=== PATIENT | male | born 1950 | race African-American/Black ===

== ENCOUNTER → 2016-06-29 | Outpatient (CLI) | payer MEDICARE, OTHER ==
--- NOTE | 2016-06-29 12:43 | CT ---
EXAMINATION TYPE: CT chest wo con DATE OF EXAM: 06/29/2016 12:33 PM COMPARISON: NONE HISTORY: Patient complains of difficulty breathing. CT DLP: 919.8 mGycm. Automated Exposure Control for Dose Reduction was Utilized. TECHNIQUE: CT scan of the thorax is performed without IV contrast. High-resolution protocol with 10 mm sequences obtained in supine and prone technique. FINDINGS: LUNGS: There are tiny bilateral pleural effusions. No suspicious groundglass opacity or consolidation is seen. Some mild edema with atelectatic change in both lung bases is felt present. Evaluation for subcentimeter nodules is suboptimal due to technique. There is suspected 9 x 7 mm nodule in the right lung base near diaphragm on axial image 21 series 8. No bronchiectasis is seen. No pneumothorax is n oted bilaterally. MEDIASTINUM: Lack of IV contrast is noted to limit evaluation for mediastinal and especially hilar ad enopathy. There are no definitive greater than 1 cm hilar or mediastinal lymph nodes. There is cardio megaly with dual lead pacemaker/AICD. Coronary artery calcification is seen which is noted marker for coronary artery disease. OTHER: Cholecystectomy clips are noted. IMPRESSION: 1. Consider CHF exacerbation or chronic CHF as there is cardiomegaly with tiny bilateral pleural effu sions and mild edema inferiorly in both lungs. 2. There is some mild scarring and/or atelectatic change in both lung bases. Otherwise there is no si gnificant acute or chronic pulmonary process identified.
== END | disposition home or self-care (01) ==
LOC: RADCTMAIN 12:10
PROVIDERS: ATTEND Internal Medicine
DX: J90 Pleural effusion, not elsewhere classified (principal); I51.7 Cardiomegaly; J81.1 Chronic pulmonary edema
CPT/HCPCS: 71250

== ENCOUNTER → 2017-03-20 | Outpatient (CLI) | payer MEDICARE, OTHER ==
--- NOTE | 2017-03-20 14:44 | US ---
EXAMINATION TYPE: US duplex aorta DATE OF EXAM: 03/20/2017 COMPARISON: NONE CLINICAL HISTORY: Z13.9 ENCOUNTER FOR SCREENING. EXAM MEASUREMENTS: Abdominal Aorta: Proximal: 2.6 x 2.1 cm Mid: 2.2 x 2.1 cm Distal: 1.9 x 2.3 cm Bifurcation: right 1.4 x 1.0 cm left 1.3 x 1.2 cm IMPRESSION: No sonographic evidence of abdominal aortic aneurysm.
== END | disposition home or self-care (01) ==
LOC: RADUSWWP 14:12
PROVIDERS: ATTEND Family Medicine
DX: Z13.9 Encounter for screening, unspecified (principal)
CPT/HCPCS: 93979

== ENCOUNTER → 2017-07-03 | Outpatient (CLI) | payer MEDICARE, OTHER ==
[2017-07-03 12:42] LABS: HCT 46.7 % (39.0-53.0); HGB 14.7 gm/dL (13.0-17.5); MCH 26.1 pg (25.0-35.0); MCHC 31.6 g/dL (31.0-37.0); MCV 82.6 fL (80.0-100.0); Platelet Count 355 k/uL (150-450); RBC 5.65 m/uL (4.30-5.90); RDW 14.6 % (11.5-15.5)
[2017-07-03 12:59] LABS: Potassium 4.7 mmol/L (3.5-5.1)
== END | disposition home or self-care (01) ==
LOC: LABPAT 11:54
PROVIDERS: ATTEND Internal Medicine Interventional Cardiology
DX: Z01.812 Encounter for preprocedural laboratory examination (principal); I25.10 Atherosclerotic heart disease of native coronary artery without angina pectoris
CPT/HCPCS: 36415; 80051; 82565; 84520; 85027

== ENCOUNTER → 2017-10-22 | Outpatient (CLI) | payer MEDICARE, OTHER ==
--- NOTE | 2017-10-22 22:13 | CT ---
EXAMINATION TYPE: CT chest w con DATE OF EXAM: 10/22/2017 COMPARISON: CT chest June 29, 2016. Two-view chest x-ray June 12, 2017. HISTORY: Solitary pulmonary nodule. CT DLP: 547 mGycm. Automated Exposure Control for Dose Reduction was Utilized. TECHNIQUE: CT scan of the thorax is performed following with IV Contrast, patient injected with 100m l mL of Isovue 300. FINDINGS: LUNGS: There is moderate bibasilar linear scarring and/or atelectasis. There is trace bilateral pleur al effusions. No suspicious greater than 5 mm parenchymal nodule or mass is identified bilaterally. T racheobronchial tree is patent. No pneumothorax is evident bilaterally. MEDIASTINUM: There are no greater than 1 cm hilar or mediastinal lymph nodes. No pericardial effusi on is seen. Cardiomegaly with dual lead pacemaker/AICD is redemonstrated. Main pulmonary artery is d ilated at bifurcation measuring 3.4 cm axial image 23, CT finding consistent with underlying pulmonar y artery hypertension. OTHER: Left greater than right bilateral gynecomastia is redemonstrated. Cholecystectomy clips are re demonstrated. Small splenule splenic hilum axial image 49 is noted. 1 cm simple appearing exophytic c yst medially right kidney axial image 55 is present. IMPRESSION: No suspicious pulmonary nodule or masses.
== END | disposition home or self-care (01) ==
LOC: RADCTMAIN 17:35
PROVIDERS: ATTEND Internal Medicine
DX: R91.1 Solitary pulmonary nodule (principal); Z88.8 Allergy status to other drugs, medicaments and biological substances
CPT/HCPCS: 82565; 84520; 71260; 36415; Q9967

== ENCOUNTER → 2018-01-16 | Outpatient (CLI) | payer MEDICARE, OTHER ==
--- NOTE | 2018-01-16 12:03 | XR ---
EXAMINATION TYPE: XR chest 2V DATE OF EXAM: 01/16/2018 COMPARISON: 07/20/2014 HISTORY: Shortness of breath TECHNIQUE: Frontal and lateral views of the chest are obtained. FINDINGS: Scattered senescent parenchymal changes noted. Hyperinflation compatible with COPD. No evidence for infiltrate. No evidence for atelectasis. Heart size is stable. Mediastinal structures are stable and grossly unremarkable. No evidence for hilar prominence. Degenerative changes dorsal spine. IMPRESSION: 1. No evidence for acute pulmonary disease.
== END | disposition home or self-care (01) ==
LOC: RADXRMAIN 11:35
PROVIDERS: ATTEND Family Medicine
DX: J44.9 Chronic obstructive pulmonary disease, unspecified (principal)
CPT/HCPCS: 71046

== ENCOUNTER 2020-06-02 17:35 | Inpatient (IN) | payer MEDICARE, OTHER ==
--- NOTE | 2020-06-02 18:03 | ED ---
Chest Pain HPI - General Chief Complaint: Chest Pain Stated Complaint: SOB, Chest discomfort Time Seen by Provider: 06/02/20 17:35 Source: patient, EMS, RN notes reviewed Mode of arrival: EMS Limitations: no limitations - History of Present Illness Initial Comments: This is a 70-year-old male was brought in by EMS with complaints of shortness of breath and chest pain it lasted about 30 minutes while he was walking. No nausea vomiting sweats he states the pain did get better after he was given aspirin nitroglycerin by EMS personnel. No prior episodes he was noted to be bradycardic with a heart rate in the 40s per personnel. MD Complaint: chest pain, other - Related Data Home Medications Medication Instructions Recorded Confirmed ALPRAZolam [Xanax] 0.5 mg PO DAILY 04/01/14 01/17/16 Aspirin EC [Ecotrin Low Dose] 81 mg PO DAILY 04/01/14 01/17/16 Furosemide [Lasix] 20 mg PO QAM 04/01/14 01/17/16 Losartan Potassium [Cozaar] 100 mg PO QAM 04/01/14 01/17/16 Lovastatin [Mevacor] 40 mg PO HS 04/01/14 01/17/16 Mirtazapine 45 mg PO HS 04/01/14 01/17/16 Omeprazole 40 mg PO AC-BRKFST 04/01/14 01/17/16 Oxybutynin Chloride [Ditropan] 5 mg PO TID 04/01/14 01/17/16 QUEtiapine [SEROquel] 200 mg PO BID 04/01/14 01/17/16 Spironolactone [Aldactone] 25 mg PO QAM 04/01/14 01/17/16 Budesonide/Formoterol Fumarate 2 puff INHALATION RT-BID PRN 07/20/14 01/17/16 [Symbicort 160-4.5 Mcg Inhaler] Carvedilol 25 mg PO BID 07/20/14 01/17/16 Citalopram Hydrobromide [CeleXA] 10 mg PO QAM 07/20/14 01/17/16 Docusate Sodium [Dulcolax Stool 100 mg PO DAILY 07/20/14 01/17/16 Softener] Levocetirizine Dihydrochloride 5 mg PO QAM 07/20/14 01/17/16 Montelukast [Singulair] 10 mg PO HS 07/20/14 01/17/16 Fluticasone Nasal [place] [Flonase 1 spr EA NOSTRIL BID 01/16/16 01/17/16 Nasal [place]] amLODIPine BESYLATE [Amlodipine 10 mg PO QAM 01/16/16 01/17/16 Besylate] Doxepin [SINEquan] 25 mg PO HS 01/17/16 01/17/16 Testosterone Cypionate 200 mg IM Q28D 01/17/16 01/17/16 [Depo-Testosterone] Vitamin B Complex 1 cap PO DAILY 01/17/16 01/17/16 Previous Rx's Medication Instructions Recorded Meclizine [Antivert] 12.5 mg PO BID #20 tab 07/25/14 Allergies Allergy/AdvReac Type Severity Reaction Status Date / Time Barbiturates Allergy Anaphylaxis Verified 01/17/16 21:38 Review of Systems ROS Statement: Those systems with pertinent positive or pertinent negative responses have been documented in the HPI. ROS Other: All systems not noted in ROS Statement are negative. EKG Findings - EKG Results: EKG: interpreted by ERMD (Ventricular rate 90. 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 Stovall, gout bilateral feet, occasional numbness L leg/L great toe, hx of PHIL with CPAP but no longer an issue since wt. 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 History of Any Multi-Drug Resistant Organisms: None Reported Past Surgical History: AICD, Cholecystectomy, Heart Catheterization, Heart Catheterization With Stent, Hernia Repair, Tonsillectomy Additional Past Surgical History / Comment(s): 07/24/14 EGD/colonoscopy with polypectomy/bx, 2005 AICD/2014 AICD changed to medtronic, 2002 Cardiac stent in [place], 2007 cardiac cath [facility], upper teeth extracted for denture, L ear has tube, R ear plugged, cyst removed L eyelid, bilateral cataract removal, L ganglion cyst removal, L/R inguinal hernia repairs with mesh, penile implant. Past Anesthesia/Blood Transfusion Reactions: No Reported Reaction Date of Last Stent Placement:: 2002 Type of Cardiac Device: AICD Device Placement Date:: 2014 Past Psychological History: Anxiety, Depression Past Alcohol Use History: None Reported Past Drug Use History: None Reported - Past Family History Father Family Medical History: Coronary Artery Disease (CAD), Pneumonia Additional Family Medical History / Comment(s): Father of pneumonia at the age of 82 yrs. Mother Family Medical History: Liver Disease, Renal Disease Additional Family Medical History / Comment(s): father passed after a bout with pneumonia General Exam - General Exam Comments Initial Comments: This is a well-developed well-nourished awake alert oriented times 3 male Limitations: no limitations General appearance: alert, in no apparent distress Head exam: Present: atraumatic, normocephalic, normal inspection Eye exam: Present: normal appearance, PERRL, EOMI. Absent: scleral icterus, conjunctival injection, periorbital swelling ENT exam: Present: normal exam, mucous membranes moist Neck exam: Present: normal inspection. Absent: tenderness, meningismus, lymphadenopathy Respiratory exam: Present: normal lung sounds bilaterally. Absent: respiratory distress, wheezes, rales, rhonchi, stridor Cardiovascular Exam: Present: normal rhythm, bradycardia, normal heart sounds, other (Extra Systoles noted). Absent: systolic murmur, diastolic murmur, rubs, gallop, clicks GI/Abdominal exam: Present: soft, normal bowel sounds. Absent: distended, tenderness, guarding, rebound, rigid Extremities exam: Present: normal inspection, full ROM, normal capillary refill. Absent: tenderness, pedal edema, joint swelling, calf tenderness Back exam: Present: normal inspection Neurological exam: Present: alert, oriented X3, CN II-XII intact Psychiatric exam: Present: normal affect, normal mood Skin exam: Present: warm, dry, intact, normal color. Absent: rash Course Vital Signs 03/11/21 03/11/21 17:38 18:35 Temperature 97.8 F 97.9 F Pulse Rate 45 L 68 Respiratory 18 16 Rate Blood Pressure 116/90 128/87 O2 Sat by Pulse 98 98 Oximetry - Reevaluation(s) Reevaluation #1: 06/02/20 19:40 Patient had no further symptoms since arrival. He was found be hypomagnesemic. IV magnesium is ordered. Reevaluation #2: 06/02/20 20:20 The patient has had no further symptoms since arrival. He is found be hypomagnesemic. Chest Pain MDM - MDM Imaging reviewed no acute findings patient is demonstrated evidence of hypomagnesemia as well as chest pain with dyspnea. I did discuss the case with Tadeo who is covering for Dr. Moran patient will be admitted with cardiology c onsultation. Critical Care Time Critical Care Time: Yes Total Critical Care Time: 31 Critical Care Time: Critical care time included the initial presentation with history physical discussion with paramedics also reevaluation the patient discussed with the admitting physician admission orders documentation the above. Disposition Clinical Impression: Unstable angina pectoris, Chest pain, Hypomagnesemia syndrome Disposition: ADMITTED IP TO THIS HOSP Condition: Fair Referrals: Hudson Moran MD [Primary Care Provider] - 1-2 days
[2020-06-02 18:15] LABS: Basophils # (A) 0.1 k/uL (0-0.2); Basophils % (A) 1 %; Eosinophils # (A) 0.4 k/uL (0-0.7); Eosinophils % (A) 5 %; HGB 15.6 gm/dL (13.0-17.5); Lymphocytes # (A) 2.7 k/uL (1.0-4.8); Lymphocytes % (A) 42 %; MCH 29.2 pg (25.0-35.0); MCHC 33.2 g/dL (31.0-37.0); MCV 87.8 fL (80.0-100.0); Mean Platelet Volume 7.8; Monocytes # (A) 0.5 k/uL (0-1.0); Monocytes % (A) 7 %; Neutrophils # (A) 2.9 k/uL (1.3-7.7); Neutrophils % (A) 44 %; Platelet Count 310 k/uL (150-450); RBC 5.35 m/uL (4.30-5.90); RDW 14.3 % (11.5-15.5); WBC 6.6 k/uL (3.8-10.6)
--- NOTE | 2020-06-02 18:16 | XR ---
EXAMINATION TYPE: XR chest 2V DATE OF EXAM: 06/02/2020 COMPARISON: Chest x-ray January 16, 2018. CT chest October 22, 2017. HISTORY: Chest pain and shortness of breath. TECHNIQUE: Frontal and lateral views of the chest are obtained. FINDINGS: There are low lung volumes redemonstrated without suspicious new focal air space opacity, pleural effusion, or pneumothorax seen. Persistent cardiomegaly with multilead pacemaker/defibrillato r. The osseous structures are intact. IMPRESSION: Cardiomegaly and low lung volumes without new acute pulmonary process.
[2020-06-02 18:25] LABS: Partial Thromboplastin Time 24.9 sec (22.0-30.0); Prothrombin Time 10.5 sec (9.0-12.0)
[2020-06-02 18:26] LABS: Albumin 3.8 g/dL (3.5-5.0); Calcium 9.5 mg/dL (8.4-10.2); Magnesium 1.4 mg/dL (1.6-2.3); Potassium 3.7 mmol/L (3.5-5.1); Total Bilirubin 0.4 mg/dL (0.2-1.3); Total Protein 6.6 g/dL (6.3-8.2)
[2020-06-02] MEDS: MAGNESIUM SULFATE-D5W PMX 1 GM in DEXTROSE/WATER 1 100ML.BAG IVPB SCH ×2 (19:32→20:30)
[2020-06-02] MEDS ORDERED: HEPARIN SODIUM,PORCINE 5,000 UNIT/ML 1 ML VIAL IV ONE (20:22)
[2020-06-02] MEDS ORDERED: NITROGLYCERIN SL TABS 0.4 MG TAB SUBLINGUAL PRN (20:22)
[2020-06-02] MEDS ORDERED: QUEtiapine 200 MG TAB PO SCH (21:00)
[2020-06-02] MEDS ORDERED: DOXEPIN 25 MG CAP PO SCH (21:00)
[2020-06-02] MEDS: MECLIZINE 12.5 MG TAB PO SCH (21:14)
[2020-06-02] MEDS: OXYBUTYNIN CHLORIDE 5 MG TAB PO SCH (21:14)
[2020-06-02] MEDS: ATORVASTATIN 10 MG TAB PO SCH (21:14)
[2020-06-02] MEDS: MONTELUKAST 10 MG TAB PO SCH (21:14)
[2020-06-02] MEDS: carvediloL 12.5 MG TAB PO SCH (21:14)
[2020-06-02] MEDS: HEPARIN SOD,PORK IN 0.45% NACL 25,000 UNIT in 0.45% NACL 1 250ML.BAG IV SCH (21:53)
[2020-06-02] MEDS: MIRTAZAPINE 45 MG TABLET PO SCH (23:12)
[2020-06-02] MEDS: NITROGLYCERIN OINT 1 INCH/GM PACKET TOPICAL SCH (23:12)
[2020-06-02] MEDS: FLUTICASONE 50MCG/SPRAY NASAL 16GM EA NOSTRIL SCH (23:23)
[2020-06-03 04:01] LABS: Basophils # (A) 0.1 k/uL (0-0.2); Basophils % (A) 1 %; Eosinophils # (A) 0.4 k/uL (0-0.7); Eosinophils % (A) 5 %; HCT 48.3 % (39.0-53.0); HGB 15.8 gm/dL (13.0-17.5); Lymphocytes % (A) 46 %; MCH 28.7 pg (25.0-35.0); MCHC 32.7 g/dL (31.0-37.0); MCV 87.8 fL (80.0-100.0); Mean Platelet Volume 7.7; Monocytes # (A) 0.6 k/uL (0-1.0); Monocytes % (A) 7 %; Neutrophils # (A) 3.4 k/uL (1.3-7.7); Neutrophils % (A) 40 %; Platelet Count 308 k/uL (150-450); RDW 14.4 % (11.5-15.5); WBC 8.6 k/uL (3.8-10.6)
[2020-06-03 04:17] LABS: Albumin 3.5 g/dL (3.5-5.0); Calcium 9.2 mg/dL (8.4-10.2); Potassium 3.4 mmol/L (3.5-5.1); Total Bilirubin 0.3 mg/dL (0.2-1.3); Total Protein 6.4 g/dL (6.3-8.2)
[2020-06-03] MEDS ORDERED: Magnesium Replacement Protocol 1 EACH MISC MISCELLANE PRN (04:25)
[2020-06-03] MEDS ORDERED: Potassium Replacement Protocol 1 EACH MISC MISCELLANE PRN ×2 (04:25→07:44)
[2020-06-03] MEDS ORDERED: POTASSIUM CHLORIDE ER 20 MEQ TAB.ER PO SCH ×2 (05:00→08:30)
[2020-06-03] MEDS: carvediloL 12.5 MG TAB PO SCH ×2 (05:02→17:38)
[2020-06-03] MEDS: PANTOPRAZOLE 40 MG TABLET PO SCH (05:03)
[2020-06-03] MEDS: NITROGLYCERIN OINT 1 INCH/GM PACKET TOPICAL SCH ×4 (05:16→23:26)
[2020-06-03] MEDS ORDERED: MAGNESIUM SULFATE-D5W PMX 1 GM in DEXTROSE/WATER 1 100ML.BAG IVPB ONE (08:00)
[2020-06-03] MEDS: SYMBICORT 160-4.5 MCG INHALER INHALATION SCH ×3 (08:18→20:36)
[2020-06-03] MEDS: OXYBUTYNIN CHLORIDE 5 MG TAB PO SCH ×3 (08:25→20:40)
[2020-06-03] MEDS: LOSARTAN 50 MG TAB PO SCH (08:25)
[2020-06-03] MEDS: amLODIPine 10 MG TAB PO SCH (08:25)
[2020-06-03] MEDS: FUROSEMIDE 20 MG TAB PO SCH (08:25)
[2020-06-03] MEDS: ASPIRIN 325 MG TAB PO SCH (08:25)
[2020-06-03] MEDS: DOCUSATE 100 MG CAP PO SCH (08:25)
[2020-06-03] MEDS: CITALOPRAM HYDROBROMIDE 10 MG TAB PO SCH (08:25)
[2020-06-03] MEDS: SPIRONOLACTONE 25 MG TAB PO SCH (08:25)
[2020-06-03] MEDS: LORATADINE 10 MG TAB PO SCH (08:25)
[2020-06-03] MEDS: ALPRAZolam 0.5 MG TAB PO SCH (08:25)
[2020-06-03] MEDS: FLUTICASONE 50MCG/SPRAY NASAL 16GM EA NOSTRIL SCH ×2 (08:26→20:40)
[2020-06-03] MEDS: MECLIZINE 12.5 MG TAB PO SCH ×2 (08:26→20:39)
--- NOTE | 2020-06-03 10:15 | P.HPIM ---
History of Present Illness H&P Date: 06/03/20 Chief Complaint: Chest discomfort, dyspnea on exertion 70-year-old -[place] male was admitted to the hospital for chest discomfort with associated symptoms of shortness of breath, lightheadedness, nausea and sweating for duration of 30 minutes with ambulation. Upon arrival to the emergency department patient heart rate noted to be in the low 40s with frequent PVCs. Patient had extensive diagnostic workup in emergency department troponins negative chest x-ray unremarkable, noted to have low magnesium - magnesium replacement protocol. Patient has significant medical history of atrial fibrillation, coronary artery disease, heart failure, COPD, CVA/TIA, Gerd, hyperlipidemia, hypertension, sleep apnea with CPAP/BiPAP, history of three to PVCs, cardiomyopathy, AICD, anxiety and depression. Upon evaluation this a.m. patient resting comfortably denies fever, chills, shortness of breath, chest discomfort, palpitation, abdominal pain, nausea,, or diarrhea at this time. Patient noted to have frequent PVCs magnesium replacement protocol and potassium replacement protocol in place. Consultation with cardiology for further workup of unstable angina for recommendations and treatment plan. 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 Stovall, gout bilateral feet, occasional numbness L leg/L great toe, hx of PHIL with CPAP but no longer an issue since wt. 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 History of Any Multi-Drug Resistant Organisms: None Reported Past Surgical History: AICD, Cholecystectomy, Heart Catheterization, Heart Catheterization With Stent, Hernia Repair, Tonsillectomy Additional Past Surgical History / Comment(s): 07/24/14 EGD/colonoscopy with po lypectomy/bx, 2005 AICD/2014 AICD changed to medtronic, 2002 Cardiac stent in [place], 2007 cardiac cath [facility], upper teeth extracted for denture, L ear has tube, R ear plugged, cyst removed L eyelid, bilateral cataract removal, L ganglion cyst removal, L/R inguinal hernia repairs with mesh, penile implant. Past Anesthesia/Blood Transfusion Reactions: No Reported Reaction Date of Last Stent Placement:: 2002 Type of Cardiac Device: AICD Device Placement Date:: 2014 Past Psychological History: Anxiety, Depression Additional Psychological History / Comment(s): Pt lives alone in an apartment. He is independent. He does not own a vehicle so he uses [employer] to get to appointments. Smoking Status: Former smoker Past Alcohol Use History: None Reported Additional Past Alcohol Use History / Comment(s): Pt started smoking an occasional cigar about 1 1/2 yrs ago. Past Drug Use History: None Reported - Past Family History Father Family Medical History: Coronary Artery Disease (CAD), Pneumonia Additional Family Medical History / Comment(s): Father of pneumonia at the age of 82 yrs. Mother Family Medical History: Liver Disease, Renal Disease Additional Family Medical History / Comment(s): father passed after a bout with pneumonia Medications and Allergies Home Medications and Allergies Comment(s): Medications and allergies reviewed Home Medications Medication Instructions Recorded Confirmed Type Furosemide [Lasix] 20 mg PO QAM 04/01/14 06/02/20 History Losartan Potassium [Cozaar] 100 mg PO HS 04/01/14 06/02/20 History Mirtazapine 45 mg PO HS 04/01/14 06/02/20 History Omeprazole 40 mg PO AC-BRKFST 04/01/14 06/02/20 History Oxybutynin Chloride [Ditropan] 5 mg PO TID 04/01/14 06/02/20 History QUEtiapine [SEROquel] 200 mg PO BID 04/01/14 06/02/20 History Spironolactone [Aldactone] 25 mg PO QAM 04/01/14 06/02/20 History Budesonide/Formoterol Fumarate 2 puff INHALATION RT-BID 07/20/14 06/02/20 History [Symbicort 160-4.5 Mcg Inhaler] Carvedilol 25 mg PO BID 07/20/14 06/02/20 History Citalopram Hydrobromide [CeleXA] 10 mg PO QAM 07/20/14 06/02/20 History Levocetirizine Dihydrochloride 5 mg PO QAM 07/20/14 06/02/20 History Montelukast [Singulair] 10 mg PO HS 07/20/14 06/02/20 History Doxepin [SINEquan] 25 mg PO HS 01/17/16 06/02/20 History Testosterone Cypionate 200 mg IM Q14D 01/17/16 06/02/20 History [Depo-Testosterone] Vitamin B Complex 1 cap PO DAILY 01/17/16 06/02/20 History Apixaban [Eliquis] 5 mg PO BID 06/02/20 06/02/20 History Atorvastatin [Lipitor] 20 mg PO DAILY 06/02/20 06/02/20 History Denta 5000 Plus Cream 1 applic PO HS 06/02/20 06/02/20 History Verapamil HCl [Verapamil ER] 120 mg PO DAILY 06/02/20 06/02/20 History Allergies Allergy/AdvReac Type Severity Reaction Status Date / Time Barbiturates Allergy Anaphylaxis Verified 06/02/20 20:42 Physical Exam Vitals: Vital Signs Temp Pulse Pulse Resp BP BP Pulse Ox 06/03/20 08:30 97.7 F 75 16 122/72 96 06/03/20 04:17 98.1 F 62 16 140/76 97 06/03/20 01:43 57 L 16 06/03/20 00:00 97.4 F L 57 L 16 140/76 97 06/02/20 21:06 98.1 F 48 L 16 144/80 98 06/02/20 20:33 56 L 16 132/77 97 06/02/20 18:35 97.9 F 68 16 128/87 98 06/02/20 17:38 97.8 F 45 L 18 116/90 98 Intake and Output 06/02/20 06/03/20 06/03/20 22:59 06:59 14:59 Intake Total 550 0 Balance 550 0 Intake: Oral 550 0 Other: Voiding Method Toilet # Voids 1 1 # Bowel Movements 1 Weight 95.254 kg 109.7 kg - Constitutional General appearance: cooperative - EENT Eyes: EOMI, PERRLA Ears: bilateral: normal - Neck Neck: normal ROM Carotids: bilateral: upstroke normal Thyroid: bilateral: normal size - Respiratory Respiratory: bilateral: CTA (Anterior and posterior lung mckeon) - Cardiovascular Sinus bradycardia with frequent PVCs Heart rate: 58 Rhythm: regular Heart sounds: normal: S1, S2 radial pulse Peripheral Pulses: bilateral: Normal dorsalis pedis Peripheral Pulses: bilateral: Normal - Gastrointestinal General gastrointestinal: normal bowel sounds - Integumentary Integumentary: normal turgor - Neurologic Neurologic: CNII-XII intact - Musculoskeletal Musculoskeletal: generalized weakness - Psychiatric Psychiatric: A&O x's 3, appropriate affect, intact judgment & insight Results CBC & Chem 7: 06/03/20 03:34 06/03/20 03:34 Labs: Abnormal Lab Results - Last 24 Hours (Table) 06/02/20 06/03/20 06/03/20 Range/Units 18:03 03:34 03:34 APTT 44.9 H (22.0-30.0) sec Sodium 135 L (137-145) mmol/L Potassium 3.4 L (3.5-5.1) mmol/L Glucose 131 H 111 H (74-99) mg/dL Magnesium 1.4 L (1.6-2.3) mg/dL Creatine Kinase 215 H (55-170) U/L Chest x-ray: report reviewed Thrombosis Risk Factor Assmnt - Choose All That Apply Each Factor Represents 1 point: Obesity (BMI >25) Each Risk Factor Represents 2 Points: Age 61-74 years Thrombosis Risk Factor Assessment Total Risk Factor Score: 3 Thrombosis Risk Factor Assessment Level: Moderate Risk Assessment and Plan Assessment: Chest pain exertional dyspnea atrial fibrillation coronary artery disease heart failure COPD CVA/TIA Gerd hyperlipidemia hypertension sleep apnea with CPAP/BiPAP history of frequent PVCs cardiomyopathy iron deficiency anemia gout history of heart catheterizations with stents hernia tonsillectomy mixed anxiety depression Full code Plan: Unstable angina continue heparin drip, consultation with cardiology for recommendations and treatment plan frequent PVCs magnesium and potassium replacement protocol. Hypo magnesium magnesium replacement protocol hypertension continue home medications hyperlipidemia continue home medications holding Seroquel and doxepin at this time due to prolonged QT interval medical management further recommendations based on patient's clinical course to come Time with Patient: Greater than 30
--- NOTE | 2020-06-03 11:15 | P.CRDCN ---
History of Present Illness Consult date: 06/03/20 History of present illness: This is a 70-year-old gentleman with history of atrial fibrillation, coronary artery disease, cardiomyopathy, AICD implantation, anxiety, and also depression. Patient claims that he was having exertional shortness of breath, lightheadedness for the last couple of days. Yesterday he went to [facility] and he has to stop few times before he went to the [facility] because of shortness of breath and dizziness. He felt lightheaded and sat on a chair and then apparently collapsed to the floor. He did feel that there is some racing in the heart. Complaints of vague chest pains. His EKG showed atrial pacer rhythm, PVCs. Apparently they found his heart rate being slow. Today is comfortable. He was found to have low potassium and magnesium which are being corrected. His troponins are within normal limits. Chest x-ray did not reveal any evidence of change of CHF. His lungs appeared to be clear. We will reevaluate his device to see if he had any cardiac arrhythmias and make sure device is functioning normally. If device evaluation comes back normal, patient could be discharged home after correcting his potassium and magnesium levels. Follow-up with ORESTES Monsalve in the office. 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 Stovall, gout bilateral feet, occasional numbness L leg/L great toe, hx of PHIL with CPAP but no longer an issue since wt. 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 History of Any Multi-Drug Resistant Organisms: None Reported Past Surgical History: AICD, Cholecystectomy, Heart Catheterization, Heart Catheterization With Stent, Hernia Repair, Tonsillectomy Additional Past Surgical History / Comment(s): 07/24/14 EGD/colonoscopy with kel ypectomy/bx, 2005 AICD/2014 AICD changed to medtronic, 2002 Cardiac stent in [place], 2007 cardiac cath [facility], upper teeth extracted for denture, L ear has tube, R ear plugged, cyst removed L eyelid, bilateral cataract removal, L ganglion cyst removal, L/R inguinal hernia repairs with mesh, penile implant. Past Anesthesia/Blood Transfusion Reactions: No Reported Reaction Date of Last Stent Placement:: 2002 Type of Cardiac Device: AICD Device Placement Date:: 2014 Past Psychological History: Anxiety, Depression Additional Psychological History / Comment(s): Pt lives alone in an apartment. He is independent. He does not own a vehicle so he uses [employer] to get to appointments. Smoking Status: Former smoker Past Alcohol Use History: None Reported Additional Past Alcohol Use History / Comment(s): Pt started smoking an occasional cigar about 1 1/2 yrs ago. Past Drug Use History: None Reported - Past Family History Father Family Medical History: Coronary Artery Disease (CAD), Pneumonia Additional Family Medical History / Comment(s): Father of pneumonia at the age of 82 yrs. Mother Family Medical History: Liver Disease, Renal Disease Additional Family Medical History / Comment(s): father passed after a bout with pneumonia Medications and Allergies Home Medications Medication Instructions Recorded Confirmed Type Furosemide [Lasix] 20 mg PO QAM 04/01/14 06/02/20 History Losartan Potassium [Cozaar] 100 mg PO HS 04/01/14 06/02/20 History Mirtazapine 45 mg PO HS 04/01/14 06/02/20 History Omeprazole 40 mg PO AC-BRKFST 04/01/14 06/02/20 History Oxybutynin Chloride [Ditropan] 5 mg PO TID 04/01/14 06/02/20 History QUEtiapine [SEROquel] 200 mg PO BID 04/01/14 06/02/20 History Spironolactone [Aldactone] 25 mg PO QAM 04/01/14 06/02/20 History Budesonide/Formoterol Fumarate 2 puff INHALATION RT-BID 07/20/14 06/02/20 History [Symbicort 160-4.5 Mcg Inhaler] Carvedilol 25 mg PO BID 07/20/14 06/02/20 History Citalopram Hydrobromide [CeleXA] 10 mg PO QAM 07/20/14 06/02/20 History Levocetirizine Dihydrochloride 5 mg PO QAM 07/20/14 06/02/20 History Montelukast [Singulair] 10 mg PO HS 07/20/14 06/02/20 History Doxepin [SINEquan] 25 mg PO HS 01/17/16 06/02/20 History Testosterone Cypionate 200 mg IM Q14D 01/17/16 06/02/20 History [Depo-Testosterone] Vitamin B Complex 1 cap PO DAILY 01/17/16 06/02/20 History Apixaban [Eliquis] 5 mg PO BID 06/02/20 06/02/20 History Atorvastatin [Lipitor] 20 mg PO DAILY 06/02/20 06/02/20 History Denta 5000 Plus Cream 1 applic PO HS 06/02/20 06/02/20 History Verapamil HCl [Verapamil ER] 120 mg PO DAILY 06/02/20 06/02/20 History Allergies Allergy/AdvReac Type Severity Reaction Status Date / Time Barbiturates Allergy Anaphylaxis Verified 06/02/20 20:42 Physical Exam Vitals: Vital Signs Temp Pulse Pulse Resp BP BP Pulse Ox 06/03/20 08:30 97.7 F 75 16 122/72 96 06/03/20 04:17 98.1 F 62 16 140/76 97 06/03/20 01:43 57 L 16 06/03/20 00:00 97.4 F L 57 L 16 140/76 97 06/02/20 21:06 98.1 F 48 L 16 144/80 98 06/02/20 20:33 56 L 16 132/77 97 06/02/20 18:35 97.9 F 68 16 128/87 98 06/02/20 17:38 97.8 F 45 L 18 116/90 98 Intake and Output 06/02/20 06/03/20 06/03/20 22:59 06:59 14:59 Intake Total 550 0 Balance 550 0 Intake: Oral 550 0 Other: Voiding Method Toilet # Voids 1 1 # Bowel Movements 1 Weight 95.254 kg 109.7 kg GENERAL EXAM: Patient is alert and oriented and doesn't appear to be in any acute distress HEENT: Normocephalic. Normal reaction of pupils, equal size, normal range of extraocular motion. No erythema or exudates in the throat. NECK: No masses, no nuchal rigidity. CHEST: No chest wall deformity. LUNGS: Equal air entry with no crackles or wheeze. HEART: S1 and S2 normal ABDOMEN: No hepatosplenomegaly, normal bowel sounds, no guarding or rigidity. SKIN: No rashes CENTRAL NERVOUS SYSTEM: No focal deficits. EXTREMITIES: No cyanosis, clubbing or edema. Results 06/03/20 03:34 06/03/20 03:34 Cardiac Enzymes 06/02/20 06/02/20 06/02/20 Range/Units 00:00 18:03 18:03 AST 21 (17-59) U/L Troponin I 0.012 <0.012 (0.000-0.034) ng/mL 06/02/20 06/03/20 Range/Units 21:03 03:34 AST 22 (17-59) U/L Troponin I <0.012 (0.000-0.034) ng/mL Coagulation 06/02/20 06/03/20 Range/Units 18:03 03:34 PT 10.5 (9.0-12.0) sec APTT 24.9 44.9 H (22.0-30.0) sec Lipids 06/03/20 Range/Units 03:34 Triglycerides 139 (<150) mg/dL Cholesterol 161 (<200) mg/dL HDL Cholesterol 41 (40-60) mg/dL CBC 06/02/20 06/03/20 Range/Units 18:03 03:34 WBC 6.6 8.6 (3.8-10.6) k/uL RBC 5.35 5.50 (4.30-5.90) m/uL Hgb 15.6 15.8 (13.0-17.5) gm/dL Hct 47.0 48.3 (39.0-53.0) % Plt Count 310 308 (150-450) k/uL Comprehensive Metabolic Panel 06/02/20 06/03/20 Range/Units 18:03 03:34 Sodium 137 135 L (137-145) mmol/L Potassium 3.7 3.4 L (3.5-5.1) mmol/L Chloride 103 103 (98-107) mmol/L Carbon Dioxide 25 27 (22-30) mmol/L BUN 13 12 (9-20) mg/dL Creatinine 1.06 1.00 (0.66-1.25) mg/dL Glucose 131 H 111 H (74-99) mg/dL Calcium 9.5 9.2 (8.4-10.2) mg/dL AST 21 22 (17-59) U/L ALT 18 17 (4-49) U/L Alkaline Phosphatase 75 81 (38-126) U/L Total Protein 6.6 6.4 (6.3-8.2) g/dL Albumin 3.8 3.5 (3.5-5.0) g/dL Current Medications Generic Name Dose Route Start Last Admin Trade Name Freq PRN Reason Stop Dose Admin Alprazolam 0.5 mg 06/03/20 09:00 06/03/20 08:25 Alprazolam 0.5 Mg Tab PO 0.5 mg DAILY NOREEN Administration Amlodipine Besylate 10 mg 06/03/20 09:00 06/03/20 08:25 Amlodipine 10 Mg Tab PO 10 mg QAM NOREEN Administration Aspirin 325 mg 06/03/20 09:00 06/03/20 08:25 Aspirin 325 Mg Tab PO 325 mg DAILY NOREEN Administration Atorvastatin Calcium 10 mg 06/02/20 21:00 06/02/20 21:14 Atorvastatin 10 Mg Tab PO 10 mg HS NOREEN Administration Budesonide/Formoterol Fumarate 2 puff 06/02/20 21:00 06/03/20 08:18 Symbicort 160-4.5 Mcg Inhaler INHALATION 2 puff RT-BID NOREEN Administration Carvedilol 25 mg 06/02/20 21:00 06/03/20 05:02 Carvedilol 12.5 Mg Tab PO 25 mg BID-W/MEALS NOREEN Administration Citalopram Hydrobromide 10 mg 06/03/20 09:00 06/03/20 08:25 Citalopram Hydrobromide 10 Mg Tab PO 10 mg QAM NOREEN Administration Docusate Sodium 100 mg 06/03/20 09:00 06/03/20 08:25 Docusate 100 Mg Cap PO 100 mg DAILY NOREEN Administration Fluticasone Propionate 1 spray 06/02/20 21:00 06/03/20 08:26 Fluticasone 50mcg/[place] Nasal 16gm EA NOSTRIL 1 spray BID NOREEN Administration Furosemide 20 mg 06/03/20 09:00 06/03/20 08:25 Furosemide 20 Mg Tab PO 20 mg QAM NOREEN Administration Heparin Sodium/Sodium Chloride 250 mls @ 10.002 mls/hr 06/02/20 20:30 06/02/20 21:53 25,000 unit/ Sodium Chloride IV 10.5 units/kg/hr .Q24H NOREEN 10.002 mls/hr Administration Protocol 10.5 UNITS/KG/HR Loratadine 10 mg 06/03/20 09:00 06/03/20 08:25 Loratadine 10 Mg Tab PO 10 mg QAM NOREEN Administration Losartan Potassium 100 mg 06/03/20 09:00 06/03/20 08:25 Losartan 50 Mg Tab PO 100 mg QAM NOREEN Administration Meclizine HCl 12.5 mg 06/02/20 21:00 06/03/20 08:26 Meclizine 12.5 Mg Tab PO 12.5 mg BID NOREEN Administration Mirtazapine 45 mg 06/02/20 21:00 06/02/20 23:12 Mirtazapine 45 Mg Tablet PO 45 mg HS NOREEN Administration Miscellaneous Information 1 each 06/03/20 04:25 Magnesium Replacement Protocol 1 Each Misc MISCELLANE DAILY PRN Per Protocol Protocol Miscellaneous Information 1 each 06/03/20 07:44 Potassium Replacement Protocol 1 Each Misc MISCELLANE DAILY PRN Per Protocol Protocol Montelukast Sodium 10 mg 06/02/20 21:00 06/02/20 21:14 Montelukast 10 Mg Tab PO 10 mg HS NOREEN Administration Nitroglycerin 0.4 mg 06/02/20 20:22 Nitroglycerin Sl Tabs 0.4 Mg Tab SUBLINGUAL Q5M PRN Chest Pain Nitroglycerin 1 inch 06/03/20 00:00 06/03/20 05:16 Nitroglycerin Oint 1 Inch/Gm Packet TOPICAL Not Given Q6HR NOREEN Denta 5000 Plus 1 applic 06/03/20 21:00 Cream PO HS NOREEN Oxybutynin Chloride 5 mg 06/02/20 22:00 06/03/20 08:25 Oxybutynin Chloride 5 Mg Tab PO 5 mg TID NOREEN Administration Pantoprazole Sodium 40 mg 06/03/20 07:30 06/03/20 05:03 Pantoprazole 40 Mg Tablet PO 40 mg AC-BRKFST NOREEN Administration Spironolactone 25 mg 06/03/20 09:00 06/03/20 08:25 Spironolactone 25 Mg Tab PO 25 mg QAM NOREEN Administration Intake and Output 06/02/20 06/03/20 06/03/20 22:59 06:59 14:59 Intake Total 550 0 Balance 550 0 Intake: Oral 550 0 Other: Voiding Method Toilet # Voids 1 1 # Bowel Movements 1 Weight 95.254 kg 109.7 kg 06/03/20 03:34 06/03/20 03:34 EKG Interpretations (text) Atrial pacer rhythm, PVCs Assessment and Plan (1) Dizziness Current Visit: Yes Status: Acute Code(s): R42 - DIZZINESS AND GIDDINESS SNOMED Code(s): 500448589 (2) Chest pain Current Visit: Yes Status: Acute Code(s): R07.9 - CHEST PAIN, UNSPECIFIED SNOMED Code(s): 51464741 (3) Hypomagnesemia syndrome Current Visit: Yes Status: Acute Code(s): E83.42 - HYPOMAGNESEMIA SNOMED Code(s): 448740720 (4) Fall Current Visit: No Status: Acute Code(s): W19.XXXA - UNSPECIFIED FALL, INITIAL ENCOUNTER SNOMED Code(s): 6311467 (5) HTN (hypertension) Current Visit: No Status: Acute Code(s): I10 - ESSENTIAL (PRIMARY) HYPERTENSION SNOMED Code(s): 10114694 Plan: So far cardiac enzymes are negative. Chest x-ray is normal. Patient is feeling better today. We'll going to interrogate his device to make sure doesn't have any arrhythmias are shocks. If the device function is normal, we'll increase his activity. If the patient is stable, he could be discharged home. Follow-up with Dr. ORESTES Monsalve
--- NOTE | 2020-06-03 12:33 | ECHOF ---
Referral Reason:chest pain MEASUREMENTS -------- HEIGHT: 182.9 cm WEIGHT: 109.3 kg BP: 140/76 RVIDd: 2.9 cm (< 3.3) IVSd: 1.2 cm (0.6 - 1.1) LVIDd: 5.8 cm (3.9 - 5.3) LVPWd: 1.1 cm (0.6 - 1.1) IVSs: 1.5 cm LVIDs: 4.8 cm LVPWs: 1.2 cm Ao Diam: 3.6 cm (2.0 - 3.7) AV Cusp: 2.5 cm (1.5 - 2.6) LA Diam: 3.9 cm (2.7 - 3.8) MV EXCURSION: 18.395 mm (> 18.000) MV EF SLOPE: 92 mm/s (70 - 150) EPSS: 1.9 cm MV E Artemio: 0.65 m/s MV DecT: 142 ms MV A Artemio: 0.39 m/s MV E/A Ratio: 1.65 AR PHT: 526 ms RAP: 5.00 mmHg RVSP: 8.59 mmHg FINDINGS -------- Sinus rhythm with extra systolic beats. This was a technically difficult study with suboptimal views. The left ventricular size is normal. There is mild concentric left ventricular hypertrophy. Overa ll left ventricular systolic function is moderate-severely impaired with, an EF between 30 - 35 %. The right ventricle is normal in size. The left atrial size is normal. The right atrial size is normal. Lumason used There is mild aortic valve sclerosis. There is mild aortic regurgitation. The mitral valve is normal. Mild mitral regurgitation is present. The tricuspid valve appears structurally normal. Mild tricuspid regurgitation present. Right vent ricular systolic pressure is normal at < 35 mmHg. Trace/mild (physiologic) pulmonic regurgitation. The aortic root size is normal. IVC Not well visulized. There is no pericardial effusion. CONCLUSIONS -------- 1. This was a technically difficult study with suboptimal views. 2. There is mild concentric left ventricular hypertrophy. 3. Overall left ventricular systolic function is moderate-severely impaired with, an EF between 30 - 35 %. 4. There is mild aortic regurgitation. 5. Mild mitral regurgitation is present. 6. Mild tricuspid regurgitation present. 7. Trace/mild (physiologic) pulmonic regurgitation. 8. There is no pericardial effusion. TRANSFORMER MAKER: Rama Juan RDCS
[2020-06-03] MEDS: MONTELUKAST 10 MG TAB PO SCH (20:24)
[2020-06-03] MEDS: ATORVASTATIN 10 MG TAB PO SCH (20:24)
[2020-06-03] MEDS: MIRTAZAPINE 45 MG TABLET PO SCH (20:39)
[2020-06-03] MEDS ORDERED: DENTA PO SCH (21:00)
[2020-06-03] MEDS: HEPARIN SOD,PORK IN 0.45% NACL 25,000 UNIT in 0.45% NACL 1 250ML.BAG IV SCH (23:26)
[2020-06-04 04:31] VITALS: RESP 16
[2020-06-04] MEDS: NITROGLYCERIN OINT 1 INCH/GM PACKET TOPICAL SCH ×2 (06:47→12:20)
[2020-06-04] MEDS: carvediloL 12.5 MG TAB PO SCH ×2 (06:47→16:08)
[2020-06-04] MEDS: PANTOPRAZOLE 40 MG TABLET PO SCH (06:47)
[2020-06-04] MEDS: SYMBICORT 160-4.5 MCG INHALER INHALATION SCH (08:01)
[2020-06-04 08:04] LABS: Basophils # (A) 0.1 k/uL (0-0.2); Basophils % (A) 1 %; Eosinophils # (A) 0.5 k/uL (0-0.7); Eosinophils % (A) 5 %; HCT 48.9 % (39.0-53.0); HGB 16.2 gm/dL (13.0-17.5); Lymphocytes # (A) 3.9 k/uL (1.0-4.8); Lymphocytes % (A) 40 %; MCH 29.5 pg (25.0-35.0); MCHC 33.1 g/dL (31.0-37.0); Mean Platelet Volume 8.1; Monocytes # (A) 0.7 k/uL (0-1.0); Monocytes % (A) 7 %; Neutrophils # (A) 4.4 k/uL (1.3-7.7); Neutrophils % (A) 46 %; Platelet Count 336 k/uL (150-450); RDW 14.4 % (11.5-15.5); WBC 9.6 k/uL (3.8-10.6)
[2020-06-04 08:21] LABS: Calcium 9.4 mg/dL (8.4-10.2); Magnesium 1.8 mg/dL (1.6-2.3); Potassium 4.5 mmol/L (3.5-5.1)
[2020-06-04] MEDS: CITALOPRAM HYDROBROMIDE 10 MG TAB PO SCH (08:57)
[2020-06-04] MEDS: amLODIPine 10 MG TAB PO SCH (08:57)
[2020-06-04] MEDS: ASPIRIN 325 MG TAB PO SCH (08:57)
[2020-06-04] MEDS: DOCUSATE 100 MG CAP PO SCH (08:57)
[2020-06-04] MEDS: ALPRAZolam 0.5 MG TAB PO SCH (08:57)
[2020-06-04] MEDS: FLUTICASONE 50MCG/SPRAY NASAL 16GM EA NOSTRIL SCH (08:57)
[2020-06-04] MEDS: LORATADINE 10 MG TAB PO SCH (08:58)
[2020-06-04] MEDS: FUROSEMIDE 20 MG TAB PO SCH (08:58)
[2020-06-04] MEDS: LOSARTAN 50 MG TAB PO SCH (08:58)
[2020-06-04] MEDS: SPIRONOLACTONE 25 MG TAB PO SCH (08:59)
[2020-06-04] MEDS: MECLIZINE 12.5 MG TAB PO SCH (08:59)
[2020-06-04] MEDS: OXYBUTYNIN CHLORIDE 5 MG TAB PO SCH ×2 (08:59→16:08)
[2020-06-04] MEDS: HEPARIN SOD,PORK IN 0.45% NACL 25,000 UNIT in 0.45% NACL 1 250ML.BAG IV SCH (09:03)
[2020-06-04] MEDS ORDERED: HEPARIN SODIUM,PORCINE 5,000 UNIT/ML 1 ML VIAL IV PRN (09:11)
[2020-06-04] MEDS ORDERED: MAGNESIUM SULFATE-D5W PMX 1 GM in DEXTROSE/WATER 1 100ML.BAG IVPB ONE (11:00)
--- NOTE | 2020-06-04 12:01 | P.PN ---
Subjective Progress Note Date: 06/04/20 History of present illness: This is a 70-year-old gentleman with history of atrial fibrillation, coronary artery disease, cardiomyopathy, AICD implantation, anxiety, and also depression. Patient claims that he was having exertional shortness of breath, lightheadedness for the last couple of days. Yesterday he went to [facility] and he has to stop few times before he went to the [facility] because of shortness of breath and dizziness. He felt lightheaded and sat on a chair and then apparently collapsed to the floor. He did feel that there is some racing in the heart. Complaints of vague chest pains. His EKG showed atrial pacer rhythm, PVCs. Apparently they found his heart rate being slow. Today is comfortable. He was found to have low potassium and magnesium which are being corrected. His troponins are within normal limits. Chest x-ray did not reveal any evidence of change of CHF. His lungs appeared to be clear. We will reevaluate his device to see if he had any cardiac arrhythmias and make sure device is functioning normally. If device evaluation comes back normal, patient could be discharged home after correcting his potassium and magnesium levels. Follow-up with ORESTES Monsalve in the office. 06/04: Echocardiogram reveals EF of 30-35% with mild concentric left hypertrophy, mild aortic regurgitation, mild mitral regurgitation, mild tricuspid regurgitation. Patient's device has been interrogated by consulting project director. Potassium and magnesium are normal. Patient is requesting prescription for nitroglycerin for home. This will be sent to his pharmacy. Physical examination: GENERAL EXAM: Patient is alert and oriented and doesn't appear to be in any acute distress HEENT: Normocephalic. Normal reaction of pupils, equal size, normal range of extraocular motion. No erythema or exudates in the throat. NECK: No masses, no nuchal rigidity. CHEST: No chest wall deformity. LUNGS: Equal air entry with no crackles or wheeze. HEART: S1 and S2 normal ABDOMEN: No hepatosplenomegaly, normal bowel sounds, no guarding or rigidity. SKIN: No rashes CENTRAL NERVOUS SYSTEM: No focal deficits. EXTREMITIES: No cyanosis, clubbing or edema. Assessment: Chest pain with negative troponins, acute coronary syndrome ruled out Ischemic Cardiomyopathy status post AICD Coronary artery disease status post angioplasty Paroxysmal atrial fibrillation Plan: Status post magnesium and potassium replacement Patient provided with prescription for nitroglycerin Patient is cleared for discharge home by cardiology Nurse practitioner note has been reviewed, I agree with documented findings and plan of care. Patient was seen and examined. Objective - Vital Signs Vital signs: Vital Signs Temp 98.2 F 06/04/20 08:00 Pulse 67 06/04/20 08:00 Resp 16 06/04/20 08:00 BP 144/77 06/04/20 08:00 Pulse Ox 96 06/04/20 08:00 Intake & Output 06/03/20 06/04/20 06/04/20 18:59 06:59 18:59 Intake Total 522 500 332.186 Output Total 240 425 Balance 282 75 332.186 Weight 107.7 kg Intake: Intake, IV Titration 250 96.186 Amount Heparin Sod,Pork in 0.45% 250 96.186 NaCl 25,000 unit In 0.45 % NaCl 1 250ml.bag @ 10.5 UNITS/KG/HR 10.002 mls/ hr IV .Q24H [facility] Rx#: [id number] Oral 522 250 236 Output: Urine 240 425 Other: Voiding Method Toilet Urinal Urinal # Voids 1 - Labs CBC & Chem 7: 06/04/20 06:38 06/04/20 06:38 Labs: Abnormal Lab Results - Last 24 Hours (Table) 06/04/20 06/04/20 Range/Units 06:38 06:38 APTT 39.1 H (22.0-30.0) sec Sodium 134 L (137-145) mmol/L
[2020-06-04 15:22] VITALS: PULSE 62
[2020-06-04 16:07] VITALS: BP 135/75; TEMP 98
--- NOTE | 2020-06-07 07:50 | CDI ---
Documentation Clarification Form systolic heart failure Date: 06/07/20 From: Jeni Pro Phone: Admit Date: 06/02/2020 08:26:00 PM Patient Name: Rayray Stewart Visit Number: [id number] Discharge Date: 06/04/2020 05:50:00 PM ATTENTION: The Clinical Documentation Specialists (CDI) and [facility] Coding Staff appreciate your assistance in clarifying documentation. Please respond to the clarification below the line at the bottom and electronically sign. The CDI & [facility] Coding staff will review the response and follow-up if needed. Please note: Queries are made part of the Legal Health Record. If you have any questions, please contact the author of this message via ITS. Dr. Denisha Otero, Heart failure/CHF is documented in the past medical history. History/Risk Factors: CAD w stent, PAF, ischemic cardiomyopathy, PVCs, HLD VS/Pulse OX: T-97.8, P-45, R-18, BP-116/90.2-98 BNP: 112 Echocardiogram Results: Overall left ventricular systolic function is moderate- severely impaired with, an EF between 30 - 35%. Chest X Ray: Cardiomegaly and low lung volumes without new acute pulmonary process. Treatment: Lasix 20 mg In your professional opinion, can you please clarify the type of chronic CHF if known? Systolic Heart Failure Diastolic Heart Failure Systolic & Diastolic Heart Failure Unable to Determine Other, please specify MTDD
--- NOTE | 2020-06-08 13:13 | CDI ---
Documentation Clarification Form Chronic systolic heart failure Date: 06/07/2020 07:50:00 AM From: Jeni Mast Phone: Admit Date: 06/02/2020 08:26:00 PM Patient Name: Rayray Stewart Visit Number: [id number] Discharge Date: 06/04/2020 05:50:00 PM ATTENTION: The Clinical Documentation Specialists (CDI) and [facility] Coding Staff appreciate your assistance in clarifying documentation. Please respond to the clarification below the line at the bottom and electronically sign. The CDI & [facility] Coding staff will review the response and follow-up if needed. Please note: Queries are made part of the Legal Health Record. If you have any questions, please contact the author of this message via ITS. Dr. Denisha Otero, Heart failure/CHF is documented in the past medical history. History/Risk Factors: CAD w stent, PAF, ischemic cardiomyopathy, PVCs, HLD VS/Pulse OX: T-97.8, P-45, R-18, BP-116/90.2-98 BNP: 112 Echocardiogram Results: Overall left ventricular systolic function is moderate- severely impaired with, an EF between 30 - 35%. Chest X Ray: Cardiomegaly and low lung volumes without new acute pulmonary process. Treatment: Lasix 20 mg In your professional opinion, can you please clarify the type of chronic CHF if known? Systolic Heart Failure Diastolic Heart Failure Systolic & Diastolic Heart Failure Unable to Determine Other, please specify MTDD
--- NOTE | 2020-06-11 22:32 | P.DS ---
Providers Date of admission: 06/02/20 20:26 Expected date of discharge: 06/04/20 Attending physician: Hudson Moran Consults: 06/02/20 20:22 Consult Physician Urgent Consulting Provider: Jarvis Root Consult Reason/Comments: Chest pain, PVCs Do you want consulting provider notified?: Yes Primary care physician: Hudson Moran Hospital Course: Discharge diagnosis Chest pain. Rule out ACS. Troponin x3 -. Ischemic cardiomyopathy status post AICD placement Coronary disease with history of stent placement Paroxysmal atrial fibrillation COPD not in exacerbation. CVA/TIA Gerd hyperlipidemia hypertension sleep apnea with CPAP/BiPAP history of frequent PVCs cardiomyopathy iron deficiency anemia gout hernia tonsillectomy mixed anxiety depression Full code Hospital course 70-year-old -[place] male was admitted to the hospital for chest discomfort with associated symptoms of shortness of breath, lightheadedness, nausea and sweating for duration of 30 minutes with ambulation. Upon arrival to the emergency department patient heart rate noted to be in the low 40s with frequent PVCs. Patient had extensive diagnostic workup in emergency department troponins negative chest x-ray unremarkable, noted to have low magnesium - magnesium replacement protocol. Patient has significant medical history of atrial fibrillation, coronary artery disease, heart failure, COPD, CVA/TIA, Gerd, hyperlipidemia, hypertension, sleep apnea with CPAP/BiPAP, history of three to PVCs, cardiomyopathy, AICD, anxiety and depression. Upon evaluation this a.m. patient resting comfortably denies fever, chills, shortness of breath, chest discomfort, palpitation, abdominal pain, nausea,, or diarrhea at this time. Patient noted to have frequent PVCs magnesium replacement protocol and potassium replacement protocol in place. Consultation with cardiology for further workup of unstable angina for recommendations and treatment plan. 06/04/2020 Patient is currently resting in the bed comfortably. No complaints of chest pain. Potassium and magnesium was replaced. 2D echocardiogram showed ejection fraction 30 to 35% with mild concentric left ventricular hypertrophy, mild AR and mild MR and mild TR. AICD was interrogated and is working appropriately. Otherwise patient is asymptomatic now and is being discharged home. Cleared from cardiology standpoint. No cough or sputum production. No fever no chills. No other acute overnight issues. Physical examination - Constitutional General appearance: cooperative - EENT Eyes: EOMI, PERRLA Ears: bilateral: normal - Neck Neck: normal ROM Carotids: bilateral: upstroke normal Thyroid: bilateral: normal size - Respiratory Respiratory: bilateral: CTA (Anterior and posterior lung mckeon) - Cardiovascular Sinus bradycardia with frequent PVCs Heart rate: 58 Rhythm: regular Heart sounds: normal: S1, S2 radial pulse Peripheral Pulses: bilateral: Normal dorsalis pedis Peripheral Pulses: bilateral: Normal - Gastrointestinal General gastrointestinal: normal bowel sounds - Integumentary Integumentary: normal turgor - Neurologic Neurologic: CNII-XII intact - Musculoskeletal Musculoskeletal: generalized weakness - Psychiatric Psychiatric: A&O x's 3, appropriate affect, intact judgment & insight Vital Signs Temp 98.2 F 06/04/20 08:00 Pulse 67 06/04/20 08:00 Resp 16 06/04/20 08:00 BP 144/77 06/04/20 08:00 Pulse Ox 96 06/04/20 08:00 Intake & Output 06/03/20 06/04/20 06/04/20 18:59 06:59 18:59 Intake Total 522 500 332.186 Output Total 240 425 Balance 282 75 332.186 Weight 107.7 kg Intake: Intake, IV Titration 250 96.186 Amount Heparin Sod,Pork in 0.45% 250 96.186 NaCl 25,000 unit In 0.45 % NaCl 1 250ml.bag @ 10.5 UNITS/KG/HR 10.002 mls/ hr IV .Q24H [facility] Rx#: [id number] Oral 522 250 236 Output: Urine 240 425 Other: Voiding Method Toilet Urinal Urinal # Voids 1 - Labs CBC & Chem 7: 06/04/20 06:38 06/04/20 06:38 Labs: Abnormal Lab Results - Last 24 Hours (Table) 06/04/20 06/04/20 Range/Units 06:38 06:38 APTT 39.1 H (22.0-30.0) sec Sodium 134 L (137-145) mmol/L Time taken greater than 35 minutes in patient care out of which more than 50% was spent on counseling and coordination of care. Patient Condition at Discharge: Fair Plan - Discharge Summary Discharge Rx Participant: No New Discharge Prescriptions: New Aspirin 81 mg PO DAILY #30 chewable Continue Mirtazapine 45 mg PO HS QUEtiapine [SEROquel] 200 mg PO BID Oxybutynin Chloride [Ditropan] 5 mg PO TID Omeprazole 40 mg PO -[facility] Spironolactone [Aldactone] 25 mg PO DAILY Furosemide [Lasix] 20 mg PO DAILY Montelukast [Singulair] 10 mg PO HS Levocetirizine Dihydrochloride 5 mg PO DAILY Carvedilol 25 mg PO BID Budesonide/Formoterol Fumarate [Symbicort 160-4.5 Mcg Inhaler] 2 puff INHALATION RT-BID Citalopram Hydrobromide [CeleXA] 10 mg PO DAILY Doxepin [SINEquan] 25 mg PO HS Vitamin B Complex 1 cap PO DAILY Testosterone Cypionate [Depo-Testosterone] 200 mg IM Q14D Apixaban [Eliquis] 5 mg PO BID Denta 5000 Plus Cream 1 applic PO HS Atorvastatin [Lipitor] 20 mg PO DAILY Discontinued Verapamil HCl [Verapamil ER] 120 mg PO DAILY No Action Nitroglycerin Sl Tabs [Nitrostat] 0.4 mg SL Q5M PRN PRN Reason: Chest Pain Dicyclomine [Bentyl] 20 mg PO TID PRN #20 tablet PRN Reason: Diarrhea amLODIPine [Norvasc] 10 mg PO DAILY Meclizine [Antivert] 12.5 mg PO TID PRN #24 tab PRN Reason: Vertigo Losartan [Cozaar] 50 mg PO HS #30 tab Discharge Medication List Furosemide [Lasix] 20 mg PO DAILY 04/01/14 [History] Mirtazapine 45 mg PO HS 04/01/14 [History] [facility] 04/01/14 [History] Oxybutynin Chloride [Ditropan] 5 mg PO TID 04/01/14 [History] QUEtiapine [SEROquel] 200 mg PO BID 04/01/14 [History] Spironolactone [Aldactone] 25 mg PO DAILY 04/01/14 [History] Budesonide/Formoterol Fumarate [Symbicort 160-4.5 Mcg Inhaler] 2 puff INHALATION RT-BID 07/20/14 [History] Carvedilol 25 mg PO BID 07/20/14 [History] Citalopram Hydrobromide [CeleXA] 10 mg PO DAILY 07/20/14 [History] Levocetirizine Dihydrochloride 5 mg PO DAILY 07/20/14 [History] Montelukast [Singulair] 10 mg PO HS 07/20/14 [History] Doxepin [SINEquan] 25 mg PO HS 01/17/16 [History] Testosterone Cypionate [Depo-Testosterone] 200 mg IM Q14D 01/17/16 [History] Vitamin B Complex 1 cap PO DAILY 01/17/16 [History] Apixaban [Eliquis] 5 mg PO BID 06/02/20 [History] Atorvastatin [Lipitor] 20 mg PO DAILY 06/02/20 [History] Denta 5000 Plus Cream 1 applic PO HS 06/02/20 [History] Aspirin 81 mg PO DAILY #30 chewable 06/04/20 [Rx] Dicyclomine [Bentyl] 20 mg PO TID PRN #20 tablet 06/06/20 [Rx] Nitroglycerin Sl Tabs [Nitrostat] 0.4 mg SL Q5M PRN 06/06/20 [History] amLODIPine [Norvasc] 10 mg PO DAILY 06/08/20 [History] Losartan [Cozaar] 50 mg PO HS #30 tab 06/10/20 [Rx] Meclizine [Antivert] 12.5 mg PO TID PRN #24 tab 06/10/20 [Rx] Follow up Appointment(s)/Referral(s): Hudson Moran MD [Primary Care Provider] - 1-2 days (Please call primary on Saturday to schedule follow up appointment.) Kaden Monsalve MD [STAFF PHYSICIAN] - 1 Week (Follow up from hospital stay and schedule generator change for pacemaker/defibrillator.) Alesia [facility], [NON-STAFF] - Patient Instructions/Handouts: Chest Pain (DC), Hypokalemia (DC), Hypomagnesemia (DC) Discharge Disposition: HOME WITH HOME HEALTH SERVICES
--- NOTE | 2020-06-13 09:42 | CDI ---
Documentation Clarification Form Date: 06/13/2020 From: Jeni Mast Phone: Admit Date: 06/02/2020 08:26:00 PM Patient Name: Rayray Stewart Visit Number: [id number] Discharge Date: 06/04/2020 05:50:00 PM ATTENTION: The Clinical Documentation Specialists (CDI) and [facility] Coding Staff appreciate your assistance in clarifying documentation. Please respond to the clarification below the line at the bottom and electronically sign. The CDI & [facility] Coding staff will review the response and follow-up if needed. Please note: Queries are made part of the Legal Health Record. If you have any questions, please contact the author of this message via ITS. Dr. Brittany Champion, Heart failure/CHF is documented in the past medical history. History/Risk Factors: CAD w stent, PAF, ischemic cardiomyopathy, PVCs, HLD VS/Pulse OX: T-97.8, P-45, R-18, BP-116/90.2-98 BNP: 112 Echocardiogram Results: Overall left ventricular systolic function is moderate- severely impaired with, an EF between 30 - 35%. Chest X Ray: Cardiomegaly and low lung volumes without new acute pulmonary process. Treatment: Lasix 20 mg In your professional opinion, can you please clarify the type of chronic CHF if known? Systolic Heart Failure Diastolic Heart Failure Systolic & Diastolic Heart Failure Unable to Determine Other, please specify Systolic Heart Failure MTDD
== END 2020-06-04 17:50 | disposition home health service (06) | DRG 313 ==
LOC: EC 17:35 → 3SCARD 20:26
PROVIDERS: ADMIT Family Medicine; ATTEND Family Medicine
PROC: 4B02XTZ Measurement of Cardiac Defibrillator, External Approach (ICD-10-PCS; principal; 2020-06-03)
DX: R07.9 Chest pain, unspecified (principal); I50.22 Chronic systolic (congestive) heart failure; D50.9 Iron deficiency anemia, unspecified; I48.0 Paroxysmal atrial fibrillation; Z20.822 Contact with and (suspected) exposure to COVID-19; I25.10 Atherosclerotic heart disease of native coronary artery without angina pectoris; I25.5 Ischemic cardiomyopathy; J44.9 Chronic obstructive pulmonary disease, unspecified; K21.9 Gastro-esophageal reflux disease without esophagitis; H91.90 Unspecified hearing loss, unspecified ear; G47.33 Obstructive sleep apnea (adult) (pediatric); E83.42 Hypomagnesemia; I49.3 Ventricular premature depolarization; F41.8 Other specified anxiety disorders; E78.5 Hyperlipidemia, unspecified; K44.9 Diaphragmatic hernia without obstruction or gangrene; M10.9 Gout, unspecified; Z79.01 Long term (current) use of anticoagulants; Z79.51 Long term (current) use of inhaled steroids; Z79.899 Other long term (current) drug therapy; Z95.810 Presence of automatic (implantable) cardiac defibrillator; Z86.73 Personal history of transient ischemic attack (TIA), and cerebral infarction without residual deficits; Z87.01 Personal history of pneumonia (recurrent); Z90.49 Acquired absence of other specified parts of digestive tract; Z87.19 Personal history of other diseases of the digestive system; Z90.89 Acquired absence of other organs; Z95.5 Presence of coronary angioplasty implant and graft; Z98.818 Other dental procedure status; Z96.0 Presence of urogenital implants; Z98.42 Cataract extraction status, left eye; Z98.41 Cataract extraction status, right eye; Z87.39 Personal history of other diseases of the musculoskeletal system and connective tissue; Z87.891 Personal history of nicotine dependence; Z98.890 Other specified postprocedural states; W19.XXXA Unspecified fall, initial encounter; Z88.8 Allergy status to other drugs, medicaments and biological substances; Z82.49 Family history of ischemic heart disease and other diseases of the circulatory system; Z83.6 Family history of other diseases of the respiratory system; Z83.79 Family history of other diseases of the digestive system; I11.0 Hypertensive heart disease with heart failure
CPT/HCPCS: 36415; 71046; 80048; 80053; 80061; 82550; 83735; 83880; 84484; 85025; 85379; 85610; 85730; 87635; 93005; 93306; 94640; 96365; 96375; 96376; 99291

== ENCOUNTER 2020-06-06 09:54 | Emergency (ER) | payer MEDICARE, OTHER ==
[2020-06-06] MEDS ORDERED: SODIUM CHLORIDE 0.9% 1,000 ML IV SCH (11:00)
[2020-06-06 11:42] LABS: Albumin 3.7 g/dL (3.5-5.0); Calcium 9.1 mg/dL (8.4-10.2); Magnesium 1.6 mg/dL (1.6-2.3); Potassium 4.1 mmol/L (3.5-5.1); Total Bilirubin 0.3 mg/dL (0.2-1.3); Total Protein 6.7 g/dL (6.3-8.2)
[2020-06-06 11:48] LABS: Basophils % (A) 0 %; Eosinophils # (A) 0.3 k/uL (0-0.7); Eosinophils % (A) 3 %; HCT 48.2 % (39.0-53.0); HGB 15.8 gm/dL (13.0-17.5); Lymphocytes # (A) 2.9 k/uL (1.0-4.8); Lymphocytes % (A) 34 %; MCH 29.5 pg (25.0-35.0); MCHC 32.8 g/dL (31.0-37.0); MCV 89.8 fL (80.0-100.0); Mean Platelet Volume 8.2; Monocytes # (A) 0.7 k/uL (0-1.0); Monocytes % (A) 8 %; Neutrophils # (A) 4.6 k/uL (1.3-7.7); Neutrophils % (A) 53 %; Platelet Count 313 k/uL (150-450); RBC 5.36 m/uL (4.30-5.90); RDW 14.5 % (11.5-15.5); WBC 8.7 k/uL (3.8-10.6)
--- NOTE | 2020-06-06 12:13 | XR ---
EXAMINATION TYPE: XR abdomen 2V DATE OF EXAM: 06/06/2020 CLINICAL HISTORY: Diarrhea. TECHNIQUE: Supine and upright views of the abdomen are obtained. COMPARISON: None. FINDINGS: Gas is seen in nondistended stomach. Scattered gas seen in nondistended small and large bow el loops. Scattered air fluid levels in the right abdomen are nonspecific. There is cardiomegaly with dual lead pacemaker/defibrillator. Levoconvex scoliosis centered at L2-L3 level. Tiny left pleural e ffusion. No free air. Scattered pelvic phleboliths. Rounded density over the lower pelvis of uncertai n etiology, wall calcified bladder cannot be excluded. Cholecystectomy clips noted. IMPRESSION: Overall nonspecific strongly favor nonobstructive bowel gas pattern.
[2020-06-06] MEDS ORDERED: LOPERAMIDE 2 MG CAP PO STA (14:36)
[2020-06-06] MEDS ORDERED: DICYCLOMINE 20 MG TAB PO STA (14:39)
--- NOTE | 2020-06-06 14:39 | ED ---
General Adult HPI - General Chief complaint: Nausea/Vomiting/Diarrhea Stated complaint: diarrhea Time Seen by Provider: 06/06/20 09:55 Source: patient, EMS Mode of arrival: EMS Limitations: no limitations - History of Present Illness Initial comments: Patient is a 70-year-old male with past medical history of A. fib, coronary artery disease, COPD who presents to the emergency department with reported diarrhea. Patient was just discharged from our facility yesterday. Reports that he ate dinner prior to going home. Began having upset stomach prior to discharge. States that when he got home he began having multiple episodes of brown, loose, watery stools. States this persisted all night. Continue to have bowel movements every half hour. States that he did not take any medications for his symptoms. Was having pain in his rectum and therefore came into the emergency room for evaluation. Denies any abdominal pain but admits to abdominal cramping. No fevers or chills excessive symptoms. No history of C. diff. No recent antibiotic use. Denies changes in his urination. No black, tarry or sticky stools. Patient was recently hospitalized and had low mag levels. No other alleviating, precipitating or modifying factors - Related Data Home Medications Medication Instructions Recorded Confirmed Furosemide [Lasix] 20 mg PO DAILY 04/01/14 06/06/20 Losartan Potassium [Cozaar] 100 mg PO HS 04/01/14 06/06/20 Mirtazapine 45 mg PO HS 04/01/14 06/06/20 Omeprazole 40 mg PO AC-BRKFST 04/01/14 06/06/20 Oxybutynin Chloride [Ditropan] 5 mg PO TID 04/01/14 06/06/20 QUEtiapine [SEROquel] 200 mg PO BID 04/01/14 06/06/20 Spironolactone [Aldactone] 25 mg PO DAILY 04/01/14 06/06/20 Budesonide/Formoterol Fumarate 2 puff INHALATION RT-BID 07/20/14 06/06/20 [Symbicort 160-4.5 Mcg Inhaler] Carvedilol 25 mg PO BID 07/20/14 06/06/20 Citalopram Hydrobromide [CeleXA] 10 mg PO DAILY 07/20/14 06/06/20 Levocetirizine Dihydrochloride 5 mg PO DAILY 07/20/14 06/06/20 Montelukast [Singulair] 10 mg PO HS 07/20/14 06/06/20 Doxepin [SINEquan] 25 mg PO HS 01/17/16 06/06/20 Testosterone Cypionate 200 mg IM Q14D 01/17/16 06/06/20 [Depo-Testosterone] Vitamin B Complex 1 cap PO DAILY 01/17/16 06/06/20 Apixaban [Eliquis] 5 mg PO BID 06/02/20 06/06/20 Atorvastatin [Lipitor] 20 mg PO DAILY 06/02/20 06/06/20 Denta 5000 Plus Cream 1 applic PO HS 06/02/20 06/06/20 Nitroglycerin Sl Tabs [Nitrostat] 0.4 mg SL Q5M PRN 06/06/20 06/06/20 Previous Rx's Medication Instructions Recorded Aspirin 81 mg PO DAILY #30 chewable 06/04/20 Dicyclomine [Bentyl] 20 mg PO TID PRN #20 tablet 06/06/20 Allergies Allergy/AdvReac Type Severity Reaction Status Date / Time Barbiturates Allergy Anaphylaxis Verified 06/06/20 11:53 Review of Systems ROS Statement: Those systems with pertinent positive or pertinent negative responses have been documented in the HPI. ROS Other: All systems not noted in ROS Statement are negative. 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 Stovall, gout bilateral feet, occasional numbness L leg/L great toe, hx of PHIL with CPAP but no longer an issue since wt. 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 History of Any Multi-Drug Resistant Organisms: None Reported Past Surgical History: AICD, Cholecystectomy, Heart Catheterization, Heart Catheterization With Stent, Hernia Repair, Tonsillectomy Additional Past Surgical History / Comment(s): 5/2/15 EGD/colonoscopy with polypectomy/bx, 2005 AICD/2014 AICD changed to medtronic, 2002 Cardiac stent in [place], 2007 cardiac cath [facility], upper teeth extracted for denture, L ear has tube, R ear plugged, cyst removed L eyelid, bilateral cataract removal, L ganglion cyst removal, L/R inguinal hernia repairs with mesh, penile implant. Past Anesthesia/Blood Transfusion Reactions: No Reported Reaction Date of Last Stent Placement:: 2002 Type of Cardiac Device: AICD Device Placement Date:: 2014 Past Psychological History: Anxiety, Depression Smoking Status: Former smoker Past Alcohol Use History: None Reported Past Drug Use History: None Reported - Past Family History Father Family Medical History: Coronary Artery Disease (CAD), Pneumonia Additional Family Medical History / Comment(s): Father of pneumonia at the age of 82 yrs. Mother Family Medical History: Liver Disease, Renal Disease Additional Family Medical History / Comment(s): father passed after a bout with pneumonia General Exam Limitations: no limitations General appearance: alert, in no apparent distress Head exam: Present: atraumatic, normocephalic, normal inspection Eye exam: Present: normal appearance, PERRL, EOMI. Absent: scleral icterus, conjunctival injection, periorbital swelling ENT exam: Present: normal exam, mucous membranes moist Neck exam: Present: normal inspection. Absent: tenderness, meningismus, lymphadenopathy Respiratory exam: Present: normal lung sounds bilaterally. Absent: respiratory distress, wheezes, rales, rhonchi, stridor Cardiovascular Exam: Present: regular rate, normal rhythm, normal heart sounds. Absent: systolic murmur, diastolic murmur, rubs, gallop, clicks GI/Abdominal exam: Present: soft, normal bowel sounds. Absent: distended, tenderness, guarding, rebound, rigid Extremities exam: Present: normal inspection, full ROM, normal capillary refill. Absent: tenderness, pedal edema, joint swelling, calf tenderness Back exam: Present: normal inspection Neurological exam: Present: alert, oriented X3, CN II-XII intact Psychiatric exam: Present: normal affect, normal mood Skin exam: Present: warm, dry, intact, normal color. Absent: rash Course Vital Signs 06/06/20 06/06/20 06/06/20 09:55 11:42 12:28 Temperature 98.9 F Pulse Rate 56 L 65 47 L Respiratory 16 18 20 Rate Blood Pressure 169/108 99/63 110/68 O2 Sat by Pulse 98 97 97 Oximetry 06/06/20 06/06/20 06/06/20 13:15 14:00 16:30 Temperature 98.3 F Pulse Rate 49 L 48 L 50 L Respiratory 20 20 18 Rate Blood Pressure 99/56 108/65 112/56 O2 Sat by Pulse 99 98 96 Oximetry Medical Decision Making - Medical Decision Making On arrival patient is placed into room 20 did a thorough history and physical exam is performed. Patient does have multiple episodes of diarrhea on the bedside commode. Sample was sent for C. diff testing as well as culture and occult testing. IV is established and the patient was given 75 mL of saline per hour. Laboratory studies are conducted. Magnesium low at 1.6 and therefore joaquín steel is given 2 g of mag. Fecal occult is negative. C. diff is also negative. Patient swab for Covid. Patient was given a dose of Bentyl after his C. diff does return. I did discuss the diagnosis, differential and treatment options. Patient will be discharged home at this time and is to follow-up with his primary care physician in order to repeat his magnesium level patient will be given a small course of Bentyl. Take the medications only as directed. Return to the emergency room for any new or worsening symptoms. Patient was discharged home in stable condition - Lab Data Result diagrams: 06/06/20 11:18 06/06/20 11:18 Lab Results 06/06/20 06/06/20 06/06/20 Range/Units 11:18 11:18 11:18 WBC (3.8-10.6) k/uL RBC (4.30-5.90) m/uL Hgb (13.0-17.5) gm/dL Hct (39.0-53.0) % MCV (80.0-100.0) fL MCH (25.0-35.0) pg MCHC (31.0-37.0) g/dL RDW (11.5-15.5) % Plt Count (150-450) k/uL MPV Neutrophils % % Lymphocytes % % Monocytes % % Eosinophils % % Basophils % % Neutrophils # (1.3-7.7) k/uL Lymphocytes # (1.0-4.8) k/uL Monocytes # (0-1.0) k/uL Eosinophils # (0-0.7) k/uL Basophils # (0-0.2) k/uL Sodium (137-145) mmol/L Potassium (3.5-5.1) mmol/L Chloride (98-107) mmol/L Carbon Dioxide (22-30) mmol/L Anion Gap mmol/L BUN (9-20) mg/dL Creatinine (0.66-1.25) mg/dL Est GFR (CKD-EPI)AfAm (>60 ml/min/1.73 sqM) Est GFR (CKD-EPI)NonAf (>60 ml/min/1.73 sqM) Glucose (74-99) mg/dL Plasma Lactic Acid Dev (0.7-2.0) mmol/L Calcium (8.4-10.2) mg/dL Magnesium (1.6-2.3) mg/dL Total Bilirubin (0.2-1.3) mg/dL AST (17-59) U/L ALT (4-49) U/L Alkaline Phosphatase (38-126) U/L Total Protein (6.3-8.2) g/dL Albumin (3.5-5.0) g/dL Urine Color Urine Appearance (Clear) Urine pH (5.0-8.0) Ur Specific [place] (1.001-1.035) Urine Protein (Negative) Urine Glucose (UA) (Negative) Urine Ketones (Negative) Urine Blood (Negative) Urine Nitrite (Negative) Urine Bilirubin (Negative) Urine Urobilinogen (<2.0) mg/dL Ur Leukocyte Esterase (Negative) Stool Occult Blood Negative (Negative) Stool Lactoferrin NEGATIVE (NEGATIVE) C. difficile (EIA) Intrp Negative (Negative) Coronavirus (PCR) (Not Detectd) 06/06/20 06/06/20 06/06/20 Range/Units 11:18 11:18 11:18 WBC 8.7 (3.8-10.6) k/uL RBC 5.36 (4.30-5.90) m/uL Hgb 15.8 (13.0-17.5) gm/dL Hct 48.2 (39.0-53.0) % MCV 89.8 (80.0-100.0) fL MCH 29.5 (25.0-35.0) pg MCHC 32.8 (31.0-37.0) g/dL RDW 14.5 (11.5-15.5) % Plt Count 313 (150-450) k/uL MPV 8.2 Neutrophils % 53 % Lymphocytes % 34 % Monocytes % 8 % Eosinophils % 3 % Basophils % 0 % Neutrophils # 4.6 (1.3-7.7) k/uL Lymphocytes # 2.9 (1.0-4.8) k/uL Monocytes # 0.7 (0-1.0) k/uL Eosinophils # 0.3 (0-0.7) k/uL Basophils # 0.0 (0-0.2) k/uL Sodium 137 (137-145) mmol/L Potassium 4.1 (3.5-5.1) mmol/L Chloride 108 H (98-107) mmol/L Carbon Dioxide 22 (22-30) mmol/L Anion Gap 7 mmol/L BUN 12 (9-20) mg/dL Creatinine 1.09 (0.66-1.25) mg/dL Est GFR (CKD-EPI)AfAm 79 (>60 ml/min/1.73 sqM) Est GFR (CKD-EPI)NonAf 68 (>60 ml/min/1.73 sqM) Glucose 114 H (74-99) mg/dL Plasma Lactic Acid Dev 1.5 (0.7-2.0) mmol/L Calcium 9.1 (8.4-10.2) mg/dL Magnesium 1.6 (1.6-2.3) mg/dL Total Bilirubin 0.3 (0.2-1.3) mg/dL AST 51 (17-59) U/L ALT 41 (4-49) U/L Alkaline Phosphatase 80 (38-126) U/L Total Protein 6.7 (6.3-8.2) g/dL Albumin 3.7 (3.5-5.0) g/dL Urine Color Urine Appearance (Clear) Urine pH (5.0-8.0) Ur Specific [place] (1.001-1.035) Urine Protein (Negative) Urine Glucose (UA) (Negative) Urine Ketones (Negative) Urine Blood (Negative) Urine Nitrite (Negative) Urine Bilirubin (Negative) Urine Urobilinogen (<2.0) mg/dL Ur Leukocyte Esterase (Negative) Stool Occult Blood (Negative) Stool Lactoferrin (NEGATIVE) C. difficile (EIA) Intrp (Negative) Coronavirus (PCR) (Not Detectd) 06/06/20 06/06/20 Range/Units 11:18 13:23 WBC (3.8-10.6) k/uL RBC (4.30-5.90) m/uL Hgb (13.0-17.5) gm/dL Hct (39.0-53.0) % MCV (80.0-100.0) fL MCH (25.0-35.0) pg MCHC (31.0-37.0) g/dL RDW (11.5-15.5) % Plt Count (150-450) k/uL MPV Neutrophils % % Lymphocytes % % Monocytes % % Eosinophils % % Basophils % % Neutrophils # (1.3-7.7) k/uL Lymphocytes # (1.0-4.8) k/uL Monocytes # (0-1.0) k/uL Eosinophils # (0-0.7) k/uL Basophils # (0-0.2) k/uL Sodium (137-145) mmol/L Potassium (3.5-5.1) mmol/L Chloride (98-107) mmol/L Carbon Dioxide (22-30) mmol/L Anion Gap mmol/L BUN (9-20) mg/dL Creatinine (0.66-1.25) mg/dL Est GFR (CKD-EPI)AfAm (>60 ml/min/1.73 sqM) Est GFR (CKD-EPI)NonAf (>60 ml/min/1.73 sqM) Glucose (74-99) mg/dL Plasma Lactic Acid Dev (0.7-2.0) mmol/L Calcium (8.4-10.2) mg/dL Magnesium (1.6-2.3) mg/dL Total Bilirubin (0.2-1.3) mg/dL AST (17-59) U/L ALT (4-49) U/L Alkaline Phosphatase (38-126) U/L Total Protein (6.3-8.2) g/dL Albumin (3.5-5.0) g/dL Urine Color Yellow Urine Appearance Clear (Clear) Urine pH 5.5 (5.0-8.0) Ur Specific [place] 1.016 (1.001-1.035) Urine Protein Negative (Negative) Urine Glucose (UA) Negative (Negative) Urine Ketones Negative (Negative) Urine Blood Negative (Negative) Urine Nitrite Negative (Negative) Urine Bilirubin Negative (Negative) Urine Urobilinogen <2.0 (<2.0) mg/dL Ur Leukocyte Esterase Negative (Negative) Stool Occult Blood (Negative) Stool Lactoferrin (NEGATIVE) C. difficile (EIA) Intrp (Negative) Coronavirus (PCR) Not Detected (Not Detectd) Disposition Clinical Impression: Hypomagnesemia, Diarrhea Disposition: HOME SELF-CARE Condition: Stable Instructions (If sedation given, give patient instructions): Acute Diarrhea (ED) Additional Instructions: Please follow up with your PCP in 2-4 days. You need your magnesium level rechecked. Return to the ED for any new or worsening symptoms. Prescriptions: Dicyclomine [Bentyl] 20 mg PO TID PRN #20 tablet PRN Reason: Diarrhea Is patient prescribed a controlled substance at d/c from ED?: No Referrals: Hudson Moran MD [Primary Care Provider] - 1-2 days Time of Disposition: 14:39
[2020-06-06] MEDS: MAGNESIUM SULFATE-D5W PMX 1 GM in DEXTROSE/WATER 1 100ML.BAG IVPB SCH ×2 (14:45→15:37)
[2020-06-06 16:56] LABS: Appearance,Urine Clear (Clear); Bilirubin,Urine Negative (Negative); Blood,Urine Negative (Negative); Color,Urine Yellow; Glucose,Urine (UA) Negative (Negative); Ketones,Urine Negative (Negative); Leukocyte Esterase,Urine Negative (Negative); Nitrite,Urine Negative (Negative); PH, Urine 5.5 (5.0-8.0); Protein,Urine Negative (Negative); Specific Gravity,Urine 1.016 (1.001-1.035); Urobilinogen,Urine <2.0 mg/dL (<2.0)
[2020-06-06 17:33] VITALS: BP 112/56; PULSE 50; RESP 18; TEMP 98.3
== END 2020-06-06 16:30 | disposition home or self-care (01) ==
LOC: EC 09:54
DX: R19.7 Diarrhea, unspecified (principal); E78.5 Hyperlipidemia, unspecified; E83.42 Hypomagnesemia; F32.9 Major depressive disorder, single episode, unspecified; F41.9 Anxiety disorder, unspecified; G47.33 Obstructive sleep apnea (adult) (pediatric); I11.0 Hypertensive heart disease with heart failure; I25.10 Atherosclerotic heart disease of native coronary artery without angina pectoris; I42.9 Cardiomyopathy, unspecified; I48.91 Unspecified atrial fibrillation; I50.9 Heart failure, unspecified; J44.9 Chronic obstructive pulmonary disease, unspecified; K21.9 Gastro-esophageal reflux disease without esophagitis; Z79.01 Long term (current) use of anticoagulants; Z79.51 Long term (current) use of inhaled steroids; Z79.82 Long term (current) use of aspirin; Z79.899 Other long term (current) drug therapy; Z86.73 Personal history of transient ischemic attack (TIA), and cerebral infarction without residual deficits; Z87.891 Personal history of nicotine dependence; Z95.5 Presence of coronary angioplasty implant and graft; Z95.810 Presence of automatic (implantable) cardiac defibrillator
CPT/HCPCS: 36415; 80053; 83605; 83735; 85025; 82272; 81003; 87324; 87045; 83630; 87046; 87635; 74019; 99284; 96365; 96366; 96361; J3475

== ENCOUNTER 2020-06-08 13:56 | Observation (INO) | payer MEDICARE, OTHER ==
[2020-06-08] MEDS ORDERED: SODIUM CHLORIDE 0.9% 500 ML 500 ML IV STA (14:17)
--- NOTE | 2020-06-08 15:10 | ED ---
Dizziness HPI <Jean Claude Nino - Last Filed: 06/08/20 22:15> - General Source: patient Mode of arrival: wheelchair Limitations: no limitations <Addis Manning - Last Filed: 06/15/20 16:37> - General Chief Complaint: Dizziness Stated Complaint: SOB - History of Present Illness Initial Comments: Patient is a 70-year-old male with past medical history of A. fib, coronary disease, heart failure, COPD presents emergency room supported presyncopal sensation. Patient was recently hospitalized for similar complaint. Reports that he was seeing Dr. Moran today and office for his follow-up visit. He was awaiting the bus to pick him up to take him to his appointment. States he was sitting on the bus bench for approximately 30 minutes. When it arrived the patient stood up and instantly felt like he was going to pass out. When he got to the office, he reported his symptoms to Dr. Moran who sent him over for further evaluation. Patient denies any chest pain or shortness of breath. No nausea or vomiting. Patient was discharged home from the hospital with nitroglycerin patches however reports that he took his patch off greater than 4 hours before he had his presyncopal sensation. No other alleviating, precipita ting or modifying factors (Addis Manning) - Related Data Home Medications Medication Instructions Recorded Confirmed Furosemide [Lasix] 20 mg PO DAILY 04/01/14 06/08/20 Mirtazapine 45 mg PO HS 04/01/14 06/08/20 Omeprazole 40 mg PO AC-BRKFST 04/01/14 06/08/20 Oxybutynin Chloride [Ditropan] 5 mg PO TID 04/01/14 06/08/20 QUEtiapine [SEROquel] 200 mg PO BID 04/01/14 06/08/20 Spironolactone [Aldactone] 25 mg PO DAILY 04/01/14 06/08/20 Budesonide/Formoterol Fumarate 2 puff INHALATION RT-BID 07/20/14 06/08/20 [Symbicort 160-4.5 Mcg Inhaler] Carvedilol 25 mg PO BID 07/20/14 06/08/20 Citalopram Hydrobromide [CeleXA] 10 mg PO DAILY 07/20/14 06/08/20 Levocetirizine Dihydrochloride 5 mg PO DAILY 07/20/14 06/08/20 Montelukast [Singulair] 10 mg PO HS 07/20/14 06/08/20 Doxepin [SINEquan] 25 mg PO HS 01/17/16 06/08/20 Testosterone Cypionate 200 mg IM Q14D 01/17/16 06/08/20 [Depo-Testosterone] Vitamin B Complex 1 cap PO DAILY 01/17/16 06/08/20 Apixaban [Eliquis] 5 mg PO BID 06/02/20 06/08/20 Atorvastatin [Lipitor] 20 mg PO DAILY 06/02/20 06/08/20 Denta 5000 Plus Cream 1 applic PO HS 06/02/20 06/08/20 Nitroglycerin Sl Tabs [Nitrostat] 0.4 mg SL Q5M PRN 06/06/20 06/08/20 amLODIPine [Norvasc] 10 mg PO DAILY 06/08/20 06/08/20 Previous Rx's Medication Instructions Recorded Aspirin 81 mg PO DAILY #30 chewable 06/04/20 Dicyclomine [Bentyl] 20 mg PO TID PRN #20 tablet 06/06/20 Losartan [Cozaar] 50 mg PO HS #30 tab 06/10/20 Meclizine [Antivert] 12.5 mg PO TID PRN #24 tab 06/10/20 Allergies Allergy/AdvReac Type Severity Reaction Status Date / Time Barbiturates Allergy Anaphylaxis Verified 06/08/20 17:14 Review of Systems ROS Other: All systems not noted in ROS Statement are negative. <Jean Claude Nino - Last Filed: 06/08/20 22:15> ROS Other: All systems not noted in ROS Statement are negative. <Addis Manning - Last Filed: 06/15/20 16:37> ROS Statement: Those systems with pertinent positive or pertinent negative responses have been documented in the HPI. 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 Stovall, gout bilateral feet, occasional numbness L leg/L great toe, hx of PHIL with CPAP but no longer an issue since wt. 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 History of Any Multi-Drug Resistant Organisms: None Reported Past Surgical History: AICD, Cholecystectomy, Heart Catheterization, Heart Catheterization With Stent, Hernia Repair, Tonsillectomy Additional Past Surgical History / Comment(s): 07/24/14 EGD/colonoscopy with polypectomy/bx, 2005 AICD/2014 AICD changed to medtronic, 2002 Cardiac stent in [place], 2007 cardiac cath [facility], upper teeth extracted for denture, L ear has tube, R ear plugged, cyst removed L eyelid, bilateral cataract removal, L ganglion cyst removal, L/R inguinal hernia repairs with mesh, penile implant. Past Anesthesia/Blood Transfusion Reactions: No Reported Reaction Date of Last Stent Placement:: 2002 Type of Cardiac Device: AICD Device Placement Date:: 2014 Past Psychological History: Anxiety, Depression Smoking Status: Former smoker Past Alcohol Use History: Occasional Past Drug Use History: None Reported - Past Family History Father Family Medical History: Coronary Artery Disease (CAD), Pneumonia Additional Family Medical History / Comment(s): Father of pneumonia at the age of 82 yrs. Mother Family Medical History: Liver Disease, Renal Disease Additional Family Medical History / Comment(s): father passed after a bout with pneumonia <Addis Manning Silvia - Last Filed: 06/15/20 16:37> General Exam Limitations: no limitations General appearance: alert, in no apparent distress Head exam: Present: atraumatic, normocephalic, normal inspection Eye exam: Present: normal appearance, PERRL, EOMI. Absent: scleral icterus, conjunctival injection, periorbital swelling ENT exam: Present: normal exam, mucous membranes moist Neck exam: Present: normal inspection. Absent: tenderness, meningismus, lymphadenopathy Respiratory exam: Present: normal lung sounds bilaterally. Absent: respiratory distress, wheezes, rales, rhonchi, stridor Cardiovascular Exam: Present: regular rate, normal rhythm, normal heart sounds. Absent: systolic murmur, diastolic murmur, rubs, gallop, clicks GI/Abdominal exam: Present: soft, normal bowel sounds. Absent: distended, tenderness, guarding, rebound, rigid Extremities exam: Present: normal inspection, full ROM, normal capillary refill. Absent: tenderness, pedal edema, joint swelling, calf tenderness Back exam: Present: normal inspection Neurological exam: Present: alert, oriented X3, CN II-XII intact Psychiatric exam: Present: normal affect, normal mood Skin exam: Present: warm, dry, intact, normal color. Absent: rash <Addis Manning - Last Filed: 06/15/20 16:37> Course Vital Signs 06/08/20 06/08/20 06/08/20 14:00 15:16 15:52 Temperature 97.6 F Pulse Rate 65 63 Pulse Rate [ Pulse Oximetery ] Respiratory 18 18 Rate Blood Pressure 138/108 122/77 Blood Pressure 118/88 [Right Arm Sitting] Blood Pressure 124/87 [Right Arm Standing] Blood Pressure 118/88 [Right Arm Supine] O2 Sat by Pulse 98 96 Oximetry 06/08/20 06/08/20 06/08/20 19:41 19:55 21:17 Temperature 97.9 F Pulse Rate 63 55 L Pulse Rate [ 42 L Pulse Oximetery ] Respiratory 18 16 18 Rate Blood Pressure 117/75 123/73 Blood Pressure 149/75 [Right Arm Sitting] Blood Pressure [Right Arm Standing] Blood Pressure [Right Arm Supine] O2 Sat by Pulse 98 98 98 Oximetry 06/08/20 23:49 Temperature Pulse Rate 56 L Pulse Rate [ Pulse Oximetery ] Respiratory 18 Rate Blood Pressure 119/66 Blood Pressure [Right Arm Sitting] Blood Pressure [Right Arm Standing] Blood Pressure [Right Arm Supine] O2 Sat by Pulse 98 Oximetry EKG Findings - EKG Comments: EKG Findings:: EKG atrial paced rhythm with prolonged AV conduction, PVC, left axis, rate 65, MO interval 254, QRS duration 118, QTC 480, prolonged QT. <Jean Claude Nino - Last Filed: 06/08/20 22:15> Medical Decision Making - Lab Data Result diagrams: 06/08/20 14:54 06/08/20 14:54 <Jean Claude Nino - Last Filed: 06/08/20 22:15> - Lab Data Result diagrams: 06/09/20 17:53 06/09/20 17:53 <Addis Manning - Last Filed: 06/15/20 16:37> - Medical Decision Making Upon arrival patient is placed into room 27. A thorough history and physical exam was performed. IV is established. Orthostatics are performed. Patient is given a 500 bolus of normal saline. Results are discussed the patient. I did speak with Tadeo from Dr. Moran's office who did agree to admit the patient. Patient is currently awaiting a bed on the floor (JoseAddis arellano Silvia) - Lab Data Lab Results 06/08/20 06/08/20 06/08/20 Range/Units 14:54 14:54 14:54 WBC 7.2 (3.8-10.6) k/uL RBC 5.15 (4.30-5.90) m/uL Hgb 15.2 (13.0-17.5) gm/dL Hct 45.6 (39.0-53.0) % MCV 88.5 (80.0-100.0) fL MCH 29.4 (25.0-35.0) pg MCHC 33.3 (31.0-37.0) g/dL RDW 14.5 (11.5-15.5) % Plt Count 302 (150-450) k/uL MPV 7.9 Neutrophils % 51 % Lymphocytes % 35 % Monocytes % 8 % Eosinophils % 5 % Basophils % 1 % Neutrophils # 3.6 (1.3-7.7) k/uL Lymphocytes # 2.5 (1.0-4.8) k/uL Monocytes # 0.6 (0-1.0) k/uL Eosinophils # 0.3 (0-0.7) k/uL Basophils # 0.0 (0-0.2) k/uL PT 10.2 (9.0-12.0) sec INR 0.9 (<1.2) APTT 23.6 (22.0-30.0) sec Sodium 135 L (137-145) mmol/L Potassium 4.6 (3.5-5.1) mmol/L Chloride 105 (98-107) mmol/L Carbon Dioxide 23 (22-30) mmol/L Anion Gap 7 mmol/L BUN 14 (9-20) mg/dL Creatinine 0.92 (0.66-1.25) mg/dL Est GFR (CKD-EPI)AfAm >90 (>60 ml/min/1.73 sqM) Est GFR (CKD-EPI)NonAf 84 (>60 ml/min/1.73 sqM) Glucose 109 H (74-99) mg/dL Calcium 9.5 (8.4-10.2) mg/dL Magnesium 1.7 (1.6-2.3) mg/dL Total Bilirubin 0.6 (0.2-1.3) mg/dL AST 32 (17-59) U/L ALT 29 (4-49) U/L Alkaline Phosphatase 76 (38-126) U/L Troponin I (0.000-0.034) ng/mL NT-Pro-B Natriuret Pep pg/mL Total Protein 6.8 (6.3-8.2) g/dL Albumin 3.8 (3.5-5.0) g/dL 06/08/20 06/08/20 Range/Units 14:54 14:54 WBC (3.8-10.6) k/uL RBC (4.30-5.90) m/uL Hgb (13.0-17.5) gm/dL Hct (39.0-53.0) % MCV (80.0-100.0) fL MCH (25.0-35.0) pg MCHC (31.0-37.0) g/dL RDW (11.5-15.5) % Plt Count (150-450) k/uL MPV Neutrophils % % Lymphocytes % % Monocytes % % Eosinophils % % Basophils % % Neutrophils # (1.3-7.7) k/uL Lymphocytes # (1.0-4.8) k/uL Monocytes # (0-1.0) k/uL Eosinophils # (0-0.7) k/uL Basophils # (0-0.2) k/uL PT (9.0-12.0) sec INR (<1.2) APTT (22.0-30.0) sec Sodium (137-145) mmol/L Potassium (3.5-5.1) mmol/L Chloride (98-107) mmol/L Carbon Dioxide (22-30) mmol/L Anion Gap mmol/L BUN (9-20) mg/dL Creatinine (0.66-1.25) mg/dL Est GFR (CKD-EPI)AfAm (>60 ml/min/1.73 sqM) Est GFR (CKD-EPI)NonAf (>60 ml/min/1.73 sqM) Glucose (74-99) mg/dL Calcium (8.4-10.2) mg/dL Magnesium (1.6-2.3) mg/dL Total Bilirubin (0.2-1.3) mg/dL AST (17-59) U/L ALT (4-49) U/L Alkaline Phosphatase (38-126) U/L Troponin I <0.012 (0.000-0.034) ng/mL NT-Pro-B Natriuret Pep 114 pg/mL Total Protein (6.3-8.2) g/dL Albumin (3.5-5.0) g/dL Disposition <Jean Claude Nino - Last Filed: 06/08/20 22:15> Is patient prescribed a controlled substance at d/c from ED?: No Decision to Admit Reason: Admit from EC Decision Date: 06/08/20 Decision Time: 15:10 <Addis Manning - Last Filed: 06/15/20 16:37> Clinical Impression: Pre-syncope Disposition: ADMITTED IP TO THIS HOSP Condition: Stable
[2020-06-08 15:16] LABS: Basophils % (A) 1 %; Eosinophils # (A) 0.3 k/uL (0-0.7); Eosinophils % (A) 5 %; HCT 45.6 % (39.0-53.0); HGB 15.2 gm/dL (13.0-17.5); Lymphocytes # (A) 2.5 k/uL (1.0-4.8); Lymphocytes % (A) 35 %; MCH 29.4 pg (25.0-35.0); MCHC 33.3 g/dL (31.0-37.0); MCV 88.5 fL (80.0-100.0); Mean Platelet Volume 7.9; Monocytes # (A) 0.6 k/uL (0-1.0); Monocytes % (A) 8 %; Neutrophils # (A) 3.6 k/uL (1.3-7.7); Neutrophils % (A) 51 %; Platelet Count 302 k/uL (150-450); RBC 5.15 m/uL (4.30-5.90); RDW 14.5 % (11.5-15.5); WBC 7.2 k/uL (3.8-10.6)
[2020-06-08 15:26] LABS: ALT 29 U/L (4-49); AST 32 U/L (17-59); African American GFR (CKD) >90 (>60 ml/min/1.73 sqM); Albumin 3.8 g/dL (3.5-5.0); Alkaline Phosphatase 76 U/L (38-126); Anion Gap 7 mmol/L; Blood Urea Nitrogen 14 mg/dL (9-20); Calcium 9.5 mg/dL (8.4-10.2); Carbon Dioxide 23 mmol/L (22-30); Chloride 105 mmol/L (98-107); Glucose 109 mg/dL (74-99); Magnesium 1.7 mg/dL (1.6-2.3); Non-African American GFR(CKD) 84 (>60 ml/min/1.73 sqM); Potassium 4.6 mmol/L (3.5-5.1); Sodium 135 mmol/L (137-145); Total Bilirubin 0.6 mg/dL (0.2-1.3); Total Protein 6.8 g/dL (6.3-8.2)
[2020-06-08 15:33] LABS: INR 0.9 (<1.2); Partial Thromboplastin Time 23.6 sec (22.0-30.0); Prothrombin Time 10.2 sec (9.0-12.0)
[2020-06-08] MEDS ORDERED: NALOXONE 0.4 MG/ML 1 ML VIAL IV PRN (15:49)
[2020-06-08] MEDS ORDERED: SODIUM CHLORIDE 0.9% 1,000 ML IV SCH (16:00)
--- NOTE | 2020-06-08 16:36 | XR ---
EXAMINATION TYPE: XR chest 2V DATE OF EXAM: 06/08/2020 COMPARISON: Chest x-ray from 6 days ago HISTORY: Weakness. Dyspnea on exertion. TECHNIQUE: Frontal and lateral views of the chest are obtained. FINDINGS: There is chronic parenchymal changes bilaterally and low lung volumes redemonstrated. Pers istent cardiomegaly with dual lead pacemaker/defibrillator. New tiny bilateral pleural effusions seen best on lateral x-ray. New mild central vascular congestion and left basilar opacity. The osseous st ructures are intact. Cholecystectomy clips noted lateral view. IMPRESSION: Suspect CHF exacerbation as there is cardiomegaly with new small to tiny bilateral pleur al effusions and new mild to moderate interstitial edema. Correlate clinically. Additional more promi nent left basilar opacity consistent with atelectasis and/or infiltrate is present.
--- NOTE | 2020-06-08 17:54 | CT ---
EXAMINATION TYPE: CT angio head neck DATE OF EXAM: 06/08/2020 COMPARISON: CT brain 07/21/2014. HISTORY: weakness, fatigue and syncope CT DLP: 1851 mGycm Automated exposure control for dose reduction was used. CONTRAST: Performed without and with IV Contrast, patient injected with 65 mL of Isovue 370. Our 3-D post processed images. Images obtained from the aortic arch to the vertex of the brain with I V contrast. There are noncontrast images of the brain. There is cerebral atrophy. There is no mass effect nor midline shift. There is no sign of intracrania l hemorrhage. There is normal branching pattern of the great vessels on the aortic arch. Ascending aorta measures 4 cm. There is no dissection. There is arterial flow in both subclavian arteries. There is arterial fl ow in the common internal and external carotid arteries bilaterally. There is wide patency at the car otid artery bifurcations. There is bilateral arterial flow in the vertebral arteries. There is mild mucosal thickening in the posterior left side sphenoid sinus. There is arterial flow in the anterior middle and posterior cerebral arteries. There is arterial flow in the vertebrobasilar artery system. There is no mass effect. There is no evidence of intracranial aneurysm or neovascularity. I see no evidence of intracranial hemodynamic arterial stenosis. There is normal contrast enhancement of the venous sinuses. IMPRESSION: Negative CT angiogram of the neck. Negative CT angiogram of the brain. Cerebral atrophy. No acute intracranial abnormality. Brain unchanged compared to old exam.
[2020-06-08] MEDS ORDERED: DICYCLOMINE 20 MG TAB PO PRN (18:00)
[2020-06-08] MEDS ORDERED: FUROSEMIDE 10 MG/ML 2 ML VIAL IV STA (18:16)
[2020-06-08] MEDS ORDERED: Magnesium Replacement Protocol 1 EACH MISC MISCELLANE PRN (18:24)
[2020-06-08] MEDS: carvediloL 12.5 MG TAB PO SCH (18:45)
[2020-06-08] MEDS: MAGNESIUM SULFATE-D5W PMX 1 GM in DEXTROSE/WATER 1 100ML.BAG IVPB SCH ×2 (18:51→20:21)
[2020-06-08] MEDS: FUROSEMIDE 10 MG/ML 2 ML VIAL IV SCH ×2 (20:19→21:15)
[2020-06-08] MEDS: SYMBICORT 160-4.5 MCG INHALER INHALATION SCH (20:51)
[2020-06-08] MEDS ORDERED: LOSARTAN 50 MG TAB PO SCH (21:00)
[2020-06-08] MEDS: OXYBUTYNIN CHLORIDE 5 MG TAB PO SCH (21:13)
[2020-06-08] MEDS: QUEtiapine 200 MG TAB PO SCH (21:14)
[2020-06-08] MEDS: APIXABAN 5 MG TAB PO SCH (21:14)
[2020-06-08] MEDS: MONTELUKAST 10 MG TAB PO SCH (21:14)
[2020-06-08] MEDS: DOXEPIN 25 MG CAP PO SCH (21:14)
[2020-06-09 07:15] LABS: ALT 24 U/L (4-49); AST 24 U/L (17-59); African American GFR (CKD) >90 (>60 ml/min/1.73 sqM); Albumin 3.4 g/dL (3.5-5.0); Albumin/Globulin Ratio 1.2; Alkaline Phosphatase 73 U/L (38-126); Anion Gap 7 mmol/L; Blood Urea Nitrogen 10 mg/dL (9-20); Carbon Dioxide 23 mmol/L (22-30); Chloride 106 mmol/L (98-107); Globulin 2.8 g/dL; Glucose 92 mg/dL (74-99); Magnesium 1.8 mg/dL (1.6-2.3); Non-African American GFR(CKD) 86 (>60 ml/min/1.73 sqM); Potassium 4.4 mmol/L (3.5-5.1); Sodium 136 mmol/L (137-145); Total Bilirubin 0.3 mg/dL (0.2-1.3); Total Protein 6.2 g/dL (6.3-8.2)
[2020-06-09] MEDS: SYMBICORT 160-4.5 MCG INHALER INHALATION SCH ×2 (08:15→21:19)
[2020-06-09] MEDS ORDERED: MECLIZINE 12.5 MG TAB PO PRN (08:41)
[2020-06-09] MEDS: PANTOPRAZOLE 40 MG TABLET PO SCH (08:44)
[2020-06-09] MEDS: QUEtiapine 200 MG TAB PO SCH ×2 (08:44→20:55)
[2020-06-09] MEDS: amLODIPine 10 MG TAB PO SCH (08:44)
[2020-06-09] MEDS: SPIRONOLACTONE 25 MG TAB PO SCH (08:44)
[2020-06-09] MEDS: ATORVASTATIN 20 MG TAB PO SCH (08:44)
[2020-06-09] MEDS: carvediloL 12.5 MG TAB PO SCH ×2 (08:44→17:09)
[2020-06-09] MEDS: ASPIRIN 81 MG PO SCH (08:44)
[2020-06-09] MEDS: CITALOPRAM HYDROBROMIDE 10 MG TAB PO SCH (08:44)
[2020-06-09] MEDS: APIXABAN 5 MG TAB PO SCH ×2 (08:44→20:56)
[2020-06-09] MEDS: LORATADINE 10 MG TAB PO SCH (08:44)
[2020-06-09] MEDS: FUROSEMIDE 10 MG/ML 2 ML VIAL IV SCH (08:45)
[2020-06-09] MEDS ORDERED: NON FORMULARY DRUG (Vitamin B Complex [Vitamin B Complex] 1 EACH Capsule) PO SCH (09:00)
[2020-06-09] MEDS: OXYBUTYNIN CHLORIDE 5 MG TAB PO SCH ×3 (09:01→20:56)
[2020-06-09 09:29] LABS: Basophils # (A) 0.04 X 10*3/uL (0.00-0.10); Basophils % (A) 0.5 %; Eosinophils # (A) 0.41 X 10*3/uL (0.04-0.35); HCT 45.7 % (39.6-50.0); HGB 14.8 g/dL (13.0-17.0); Lymphocytes # (A) 2.93 X 10*3/uL (0.90-5.00); Lymphocytes % (A) 35.7 %; MCH 28.5 pg (27.0-32.0); MCHC 32.4 g/dL (32.0-37.0); MCV 88.1 fL (80.0-97.0); Mean Platelet Volume 10.9 fL (9.5-12.2); Monocytes # (A) 0.77 X 10*3/uL (0.20-1.00); Monocytes % (A) 9.4 %; Neutrophils # (A) 4.03 X 10*3/uL (1.80-7.70); Neutrophils % (A) 49.2 %; Platelet Count 328 X 10*3/uL (140-440); RBC 5.19 X 10*6/uL (4.40-5.60); RDW 14.8 % (11.5-14.5)
[2020-06-09] MEDS ORDERED: SODIUM CHLORIDE 0.9% 500 ML 500 ML IV SCH (12:30)
--- NOTE | 2020-06-09 12:35 | P.CRDCN ---
History of Present Illness History of present illness: History of present illness: This is a 70-year-old gentleman with history of atrial fibrillation, coronary artery disease, cardiomyopathy, AICD implantation, anxiety, and also depression. Patient follows in the office with Dr. Monsalve. Patient claims that he experienced lightheadedness yesterday. He was waiting for the bus, sitting on the bench and started to feel lightheaded and felt as he may pass out. He states his legs "felt like rubber and weak", he did have a mild headache, and continued to feel short of breath while sitting and worsened with exertion. He states he is able to get on the bus, going to his PCPs office Dr. Moran. While waiting to be seen by the doctor he had the same symptoms and lightheaded when he was sitting and did not improve with ambulation. He was told to go to the emergency department. He also has been having increased cough with deep breathing with some shortness of breath. Patient recently presented to the emergency room on 06/06 with complaints of diarrhea, patient's magnesium was low and was replaced, C. diff was negative, fecal occult was negative, Covid 19 was negative. Patient was given a small course of Bentyl and was discharged home. Patient was recently admitted on 06/02/20 for similar complaints of chest pain and lightheadedness patient was found to be hypokalemic and hypomagnesia. His magnesium and potassium was replaced. Cardiology was consultation. Acute coronary event was ruled out. Echocardiogram was completed on 06/04/20 revealed EF of 30-35% with mild concentric left hypertrophy, mild aortic regurgitation, mild mitral regurgitation, mild tricuspid regurgitation. Patient's AICD was interrogated which revealed 1 episode of nonsustained VT from January 2020. Patient is seen and examined at bedside, resting comfortably, in no apparent distress. Patient with increased cough during exam and with deep breathing. Patient denies chest pain, palpitations, diarrhea, nausea, vomiting, fatigue, weight change, fever or chills. Denies increased shortness of breath when lying flat or sleeping at night, however, does endorse and increased cough at night. He states he started smoking occasional cigar. Laboratory reviewed, WBC 8.2, hemoglobin 14.8, platelets 328, sodium 136, potassium 4.4, creatinine 0.90, BUN/creatinine 10, troponin negative 1, BNP 114, UA negative, COVID-19 negative. Current cardiac medications include amlodipine 10 mg daily, Aldactone 25 mg daily, losartan 100 mg nightly, Lasix 20 mg daily, carvedilol 25 mg twice a day, atorvastatin 20 mg daily, aspirin 81 mg daily, Eliquis 5 mg twice a day. Blood pressure 109/72, heart rate 60 afebrile and maintaining oxygen saturation on room air. Orthostatic vital signs were negative yesterday. Weight on 06/03 107.7kg, Today weight 104.78kg. DIAGNOSTICS EKG reveals Atrial paced with PVCs Telemetry tracings indicate atiral paced with PVCs Chest xray Left basilar opactiy consistent with atelectasis/infiltrate is present. Cardiomegaly with new small to tiny bilateral pleural effusions and new mild to moderate intersitial edema. CT angiography head and neck- Negative REVIEW OF SYSTEMS At the time of my exam: CONSTITUTIONAL: Denies fever or chills. CARDIOVASCULAR: + shortness of breath Denies chest pain,, orthopnea, PND or pal pitations. RESPIRATORY: +cough. GASTROINTESTINAL: Denies abdominal pain, diarrhea, constipation, nausea or vomiting. MUSCULOSKELETAL: Denies myalgias. NEUROLOGIC: +lightheadedness Denies numbness, tingling, headache or weakness. ENDOCRINE: Denies fatigue, weight change, polydipsia or polyurina. GENITOURINARY: Denies burning, hematuria or urgency with micturation. HEMATOLOGIC: Denies history of anemia or bleeding. PHYSICAL EXAMINATION CONSTITUTIONAL: No apparent distress. HEENT: Head is normocephalic. Pupils are equal, round. Sclerae anicteric. Mucous membranes of the mouth are moist. +JVD. No carotid bruit. CHEST EXAMINATION: Lungs are clear to auscultation. No chest wall tenderness is noted on palpation or with deep breathing. HEART EXAMINATION: Regular rate and rhythm. S1, S2 heard. No murmurs, gallops or rub. Distant heart sounds ABDOMEN: Soft, nontender. Positive bowel sounds. EXTREMITIES: 2+ peripheral pulses, no lower extremity edema and no calf tenderness. NEUROLOGIC EXAMINATION: Patient is awake, alert and oriented x3. Assessment: Cough - possibly viral vs bronchitis component Pre-syncope- Do not believe to be cardiac cause at this time. Possibly related to dehydration with patient recently having many episodes of diarrhea. Ischemic Cardiomyopathy status post AICD Coronary artery disease status post PCI with stent in 2002 Paroxysmal atrial fibrillation on Eliquis Plan: -Recommend repeating orthostatics -Hold Lasix at this time -Decrease Losartan to 50mg -IVF with 500cc over 24 hours -We will sign off at this time, Please reach out for any other questions or concerns -Patient will follow up with Dr. Monsalve in the outpatient office. Thank you kindly for this consultation. Nurse practitioner note has been reviewed, I agree with documented findings and plan of care. Patient was seen and examined. 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 Stovall, gout bilateral feet, occasional numbness L leg/L great toe, hx of PHIL with CPAP but no longer an issue since wt. 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 History of Any Multi-Drug Resistant Organisms: None Reported Past Surgical History: AICD, Cholecystectomy, Heart Catheterization, Heart Catheterization With Stent, Hernia Repair, Tonsillectomy Additional Past Surgical History / Comment(s): 07/24/14 EGD/colonoscopy with polypectomy/bx, 2005 AICD/2014 AICD changed to medtronic, 2002 Cardiac stent in [place], 2007 cardiac cath [facility], upper teeth extracted for denture, L ear has tube, R ear plugged, cyst removed L eyelid, bilateral cataract removal, L ganglion cyst removal, L/R inguinal hernia repairs with mesh, penile implant. Past Anesthesia/Blood Transfusion Reactions: No Reported Reaction Date of Last Stent Placement:: 2002 Type of Cardiac Device: AICD Device Placement Date:: 2014 Past Psychological History: Anxiety, Depression Additional Psychological History / Comment(s): Pt lives alone in an apartment. He is independent. He does not own a vehicle so he uses [employer] to g et to appointments. Smoking Status: Never smoker Past Alcohol Use History: Occasional Additional Past Alcohol Use History / Comment(s): Pt started smoking an occasional cigar about 1 1/2 yrs ago. Past Drug Use History: None Reported - Past Family History Father Family Medical History: Coronary Artery Disease (CAD), Pneumonia Additional Family Medical History / Comment(s): Father of pneumonia at the age of 82 yrs. Mother Family Medical History: Liver Disease, Renal Disease Additional Family Medical History / Comment(s): father passed after a bout with pneumonia Medications and Allergies Home Medications Medication Instructions Recorded Confirmed Type Furosemide [Lasix] 20 mg PO DAILY 04/01/14 06/08/20 History Losartan Potassium [Cozaar] 100 mg PO HS 04/01/14 06/08/20 History Mirtazapine 45 mg PO HS 04/01/14 06/08/20 History Omeprazole 40 mg PO AC-BRKFST 04/01/14 06/08/20 History Oxybutynin Chloride [Ditropan] 5 mg PO TID 04/01/14 06/08/20 History QUEtiapine [SEROquel] 200 mg PO BID 04/01/14 06/08/20 History Spironolactone [Aldactone] 25 mg PO DAILY 04/01/14 06/08/20 History Budesonide/Formoterol Fumarate 2 puff INHALATION RT-BID 07/20/14 06/08/20 History [Symbicort 160-4.5 Mcg Inhaler] Carvedilol 25 mg PO BID 07/20/14 06/08/20 History Citalopram Hydrobromide [CeleXA] 10 mg PO DAILY 07/20/14 06/08/20 History Levocetirizine Dihydrochloride 5 mg PO DAILY 07/20/14 06/08/20 History Montelukast [Singulair] 10 mg PO HS 07/20/14 06/08/20 History Doxepin [SINEquan] 25 mg PO HS 01/17/16 06/08/20 History Testosterone Cypionate 200 mg IM Q14D 01/17/16 06/08/20 History [Depo-Testosterone] Vitamin B Complex 1 cap PO DAILY 01/17/16 06/08/20 History Apixaban [Eliquis] 5 mg PO BID 06/02/20 06/08/20 History Atorvastatin [Lipitor] 20 mg PO DAILY 06/02/20 06/08/20 History Denta 5000 Plus Cream 1 applic PO HS 06/02/20 06/08/20 History Aspirin 81 mg PO DAILY #30 chewable 06/04/20 06/08/20 Rx Dicyclomine [Bentyl] 20 mg PO TID PRN #20 tablet 06/06/20 06/08/20 Rx Nitroglycerin Sl Tabs [Nitrostat] 0.4 mg SL Q5M PRN 06/06/20 06/08/20 History amLODIPine [Norvasc] 10 mg PO DAILY 06/08/20 06/08/20 History Allergies Allergy/AdvReac Type Severity Reaction Status Date / Time Barbiturates Allergy Anaphylaxis Verified 06/08/20 17:14 Physical Exam Vitals: Vital Signs Temp Pulse Pulse Resp BP BP BP 06/09/20 07:25 97.7 F 52 L 16 06/09/20 02:00 97.9 F 48 L 16 06/09/20 01:45 42 L 18 06/08/20 23:49 56 L 18 119/66 06/08/20 21:17 55 L 18 123/73 06/08/20 19:55 97.9 F 42 L 16 149/75 06/08/20 19:41 63 18 117/75 06/08/20 15:52 63 18 122/77 06/08/20 15:16 118/88 124/87 06/08/20 14:00 97.6 F 65 18 138/108 BP Pulse Ox 06/09/20 07:25 109/72 100 06/09/20 02:00 132/68 98 06/09/20 01:45 06/08/20 23:49 98 06/08/20 21:17 98 06/08/20 19:55 98 06/08/20 19:41 98 06/08/20 15:52 96 06/08/20 15:16 118/88 06/08/20 14:00 98 Intake and Output 06/08/20 06/09/20 06/09/20 22:59 06:59 14:59 Other: Voiding Method Urinal # Voids 1 Weight 104.78 kg Results 06/09/20 05:50 06/09/20 05:50 Cardiac Enzymes 06/08/20 06/08/20 06/09/20 Range/Units 14:54 14:54 05:50 AST 32 24 (17-59) U/L Troponin I <0.012 (0.000-0.034) ng/mL Coagulation 06/08/20 Range/Units 14:54 PT 10.2 (9.0-12.0) sec APTT 23.6 (22.0-30.0) sec CBC 06/08/20 Range/Units 14:54 WBC 7.2 (3.8-10.6) k/uL RBC 5.15 (4.30-5.90) m/uL Hgb 15.2 (13.0-17.5) gm/dL Hct 45.6 (39.0-53.0) % Plt Count 302 (150-450) k/uL Comprehensive Metabolic Panel 06/08/20 06/09/20 Range/Units 14:54 05:50 Sodium 135 L 136 L (137-145) mmol/L Potassium 4.6 4.4 (3.5-5.1) mmol/L Chloride 105 106 (98-107) mmol/L Carbon Dioxide 23 23 (22-30) mmol/L BUN 14 10 (9-20) mg/dL Creatinine 0.92 0.90 (0.66-1.25) mg/dL Glucose 109 H 92 (74-99) mg/dL Calcium 9.5 9.0 (8.4-10.2) mg/dL AST 32 24 (17-59) U/L ALT 29 24 (4-49) U/L Alkaline Phosphatase 76 73 (38-126) U/L Total Protein 6.8 6.2 L (6.3-8.2) g/dL Albumin 3.8 3.4 L (3.5-5.0) g/dL Current Medications Generic Name Dose Route Start Last Admin Trade Name Freq PRN Reason Stop Dose Admin Amlodipine Besylate 10 mg 06/09/20 09:00 Amlodipine 10 Mg Tab PO DAILY [facility] Apixaban 5 mg 06/08/20 21:00 06/08/20 21:14 Apixaban 5 Mg Tab PO 5 mg BID [facility] Administration Aspirin 81 mg 06/09/20 09:00 Aspirin 81 Mg PO DAILY [facility] Atorvastatin Calcium 20 mg 06/09/20 09:00 Atorvastatin 20 Mg Tab PO DAILY [facility] Budesonide/Formoterol Fumarate 2 puff 06/08/20 20:00 06/08/20 20:51 Symbicort 160-4.5 Mcg Inhaler INHALATION 2 puff RT-BID NOREEN Administration Carvedilol 25 mg 06/08/20 18:30 06/08/20 18:45 Carvedilol 12.5 Mg Tab PO 25 mg BID-W/MEALS NOREEN Administration Citalopram Hydrobromide 10 mg 06/09/20 09:00 Citalopram Hydrobromide 10 Mg Tab PO DAILY [facility]EN Dicyclomine HCl 20 mg 06/08/20 18:00 Dicyclomine 20 Mg Tab PO TID PRN Diarrhea Doxepin HCl 25 mg 06/08/20 21:00 06/08/20 21:14 Doxepin 25 Mg Cap PO 25 mg HS NOREEN Administration Furosemide 20 mg 06/08/20 21:00 06/08/20 21:15 Furosemide 10 Mg/Ml 2 Ml Vial IV Not Given Q12HR [facility]EN Loratadine 10 mg 06/09/20 09:00 Loratadine 10 Mg Tab PO DAILY [facility]EN Losartan Potassium 100 mg 06/08/20 21:00 06/08/20 21:13 Losartan 50 Mg Tab PO 100 mg HS NOREEN Administration Miscellaneous Information 1 each 06/08/20 18:24 Magnesium Replacement Protocol 1 Each Misc MISCELLANE DAILY PRN Per Protocol Protocol Montelukast Sodium 10 mg 06/08/20 21:00 06/08/20 21:14 Montelukast 10 Mg Tab PO 10 mg HS NOREEN Administration Naloxone HCl 0.2 mg 06/08/20 15:49 Naloxone 0.4 Mg/Ml 1 Ml Vial IV Q2M PRN Opioid Reversal Oxybutynin Chloride 5 mg 06/08/20 22:00 06/08/20 21:13 Oxybutynin Chloride 5 Mg Tab PO 5 mg TID NOREEN Administration Pantoprazole Sodium 40 mg 06/09/20 07:30 Pantoprazole 40 Mg Tablet PO AC-BRKFST NOREEN Quetiapine Fumarate 200 mg 06/08/20 21:00 06/08/20 21:14 Quetiapine 200 Mg Tab PO 200 mg BID NOREEN Administration Spironolactone 25 mg 06/09/20 09:00 Spironolactone 25 Mg Tab PO DAILY NOREEN Intake and Output 06/08/20 06/09/20 06/09/20 22:59 06:59 14:59 Other: Voiding Method Urinal # Voids 1 Weight 104.78 kg 06/08/20 14:54 06/09/20 05:50
--- NOTE | 2020-06-09 16:47 | P.HPIM ---
History of Present Illness H&P Date: 06/09/20 (1579) Chief Complaint: Dizziness/near syncopal episode 70-year-old male was admitted to the hospital for near syncopal episodes prior to seeing primary care physician. While seen a primary care physician patient complained of dizziness, lightheadedness, shortness of breath, and generalized malaise. Patient has 70 medical history of a fib, coronary artery disease, heart failure, COPD and multiple comorbidities. Evaluated labs and diagnostics chest x-ray showed possible mild exacerbation of CHF IV diuretics initiated. Upon evaluation patient this a.m. resting comfortably in bed denies complaints of shortness of breath, chest pain, palpitations, abdominal pain, nausea, vomiting, or diarrhea. Patient continues to endorse dizziness with movement. Patient started and Antivert 12.5 mg PO TID as needed for dizziness. Cardiology to consult to significant history of heart failure. 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 Stovall, gout bilateral feet, occasional numbness L leg/L great toe, hx of PHIL with CPAP but no longer an issue since wt. 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 History of Any Multi-Drug Resistant Organisms: None Reported Past Surgical History: AICD, Cholecystectomy, Heart Catheterization, Heart Catheterization With Stent, Hernia Repair, Tonsillectomy Additional Past Surgical History / Comment(s): 07/24/14 EGD/colonoscopy with polypectomy/bx, 2005 AICD/2014 AICD changed to medtronic, 2002 Cardiac stent in [place], 2007 cardiac cath [facility], upper teeth extracted for denture, L ear has tube, R ear plugged, cyst removed L eyelid, bilateral cataract removal, L ganglion cyst removal, L/R inguinal hernia repairs with mesh, penile implant. Past Anesthesia/Blood Transfusion Reactions: No Reported Reaction Date of Last Stent Placement:: 2002 Type of Cardiac Device: AICD Device Placement Date:: 2014 Past Psychological History: Anxiety, Depression Additional Psychological History / Comment(s): Pt lives alone in an apartment. He is independent. He does not own a vehicle so he uses [employer] to get to appointments. Smoking Status: Never smoker Past Alcohol Use History: Occasional Additional Past Alcohol Use History / Comment(s): Pt started smoking an occasional cigar about 1 1/2 yrs ago. Past Drug Use History: None Reported - Past Family History Father Family Medical History: Coronary Artery Disease (CAD), Pneumonia Additional Family Medical History / Comment(s): Father of pneumonia at the age of 82 yrs. Mother Family Medical History: Liver Disease, Renal Disease Additional Family Medical History / Comment(s): father passed after a bout with pneumonia Medications and Allergies Home Medications and Allergies Comment(s): Medication analogy reviewed Home Medications Medication Instructions Recorded Confirmed Type Furosemide [Lasix] 20 mg PO DAILY 04/01/14 06/08/20 History Losartan Potassium [Cozaar] 100 mg PO HS 04/01/14 06/08/20 History Mirtazapine 45 mg PO HS 04/01/14 06/08/20 History Omeprazole 40 mg PO AC-BRKFST 04/01/14 06/08/20 History Oxybutynin Chloride [Ditropan] 5 mg PO TID 04/01/14 06/08/20 History QUEtiapine [SEROquel] 200 mg PO BID 04/01/14 06/08/20 History Spironolactone [Aldactone] 25 mg PO DAILY 04/01/14 06/08/20 History Budesonide/Formoterol Fumarate 2 puff INHALATION RT-BID 07/20/14 06/08/20 History [Symbicort 160-4.5 Mcg Inhaler] Carvedilol 25 mg PO BID 07/20/14 06/08/20 History Citalopram Hydrobromide [CeleXA] 10 mg PO DAILY 07/20/14 06/08/20 History Levocetirizine Dihydrochloride 5 mg PO DAILY 07/20/14 06/08/20 History Montelukast [Singulair] 10 mg PO HS 07/20/14 06/08/20 History Doxepin [SINEquan] 25 mg PO HS 01/17/16 06/08/20 History Testosterone Cypionate 200 mg IM Q14D 01/17/16 06/08/20 History [Depo-Testosterone] Vitamin B Complex 1 cap PO DAILY 01/17/16 06/08/20 History Apixaban [Eliquis] 5 mg PO BID 06/02/20 06/08/20 History Atorvastatin [Lipitor] 20 mg PO DAILY 06/02/20 06/08/20 History Denta 5000 Plus Cream 1 applic PO HS 06/02/20 06/08/20 History Aspirin 81 mg PO DAILY #30 chewable 06/04/20 06/08/20 Rx Dicyclomine [Bentyl] 20 mg PO TID PRN #20 tablet 06/06/20 06/08/20 Rx Nitroglycerin Sl Tabs [Nitrostat] 0.4 mg SL Q5M PRN 06/06/20 06/08/20 History amLODIPine [Norvasc] 10 mg PO DAILY 06/08/20 06/08/20 History Allergies Allergy/AdvReac Type Severity Reaction Status Date / Time Barbiturates Allergy Anaphylaxis Verified 06/08/20 17:14 Physical Exam Vitals: Vital Signs Temp Pulse Pulse Resp BP BP BP 06/09/20 14:13 51 L 134/89 144/53 06/09/20 13:50 97.2 F L 62 14 101/64 06/09/20 07:25 97.7 F 52 L 16 06/09/20 02:00 97.9 F 48 L 16 06/09/20 01:45 42 L 18 06/08/20 23:49 56 L 18 119/66 06/08/20 21:17 55 L 18 123/73 06/08/20 19:55 97.9 F 42 L 16 149/75 06/08/20 19:41 63 18 117/75 BP Pulse Ox 06/09/20 14:13 101/64 06/09/20 13:50 97 06/09/20 07:25 109/72 100 06/09/20 02:00 132/68 98 06/09/20 01:45 06/08/20 23:49 98 06/08/20 21:17 98 06/08/20 19:55 98 06/08/20 19:41 98 Intake and Output 06/09/20 06/09/20 06/09/20 06:59 14:59 22:59 Output Total 1 Balance -1 Output: Stool 1 Other: Voiding Method Urinal Urinal # Voids 1 1 - Constitutional General appearance: cooperative - EENT Eyes: EOMI, PERRLA ENT: normal oropharynx Ears: bilateral: normal - Neck Neck: normal ROM Carotids: bilateral: upstroke normal Thyroid: negative: normal size - Respiratory Respiratory: bilateral: diminished (Posterior bases) - Cardiovascular Paste rhythm Heart rate: 60 Rhythm: regular Heart sounds: normal: S1, S2 foot Peripheral Edema: bilateral: Trace radial pulse Peripheral Pulses: bilateral: Normal dorsalis pedis Peripheral Pulses: bilateral: Normal - Gastrointestinal General gastrointestinal: normal bowel sounds - Neurologic Neurologic: CNII-XII intact - Musculoskeletal Musculoskeletal: generalized weakness - Psychiatric Psychiatric: A&O x's 3, appropriate affect Results CBC & Chem 7: 06/09/20 05:50 06/09/20 05:50 Labs: Abnormal Lab Results - Last 24 Hours (Table) 06/09/20 06/09/20 Range/Units 05:50 05:50 RDW 14.8 H (11.5-14.5) % Eosinophils # 0.41 H (0.04-0.35) X 10*3/uL Sodium 136 L (137-145) mmol/L Total Protein 6.2 L (6.3-8.2) g/dL Albumin 3.4 L (3.5-5.0) g/dL Chest x-ray: report reviewed Thrombosis Risk Factor Assmnt - Choose All That Apply Any of the Below Risk Factors Present?: Yes Each Factor Represents 1 point: Abnormal pulmonary function (COPD) Other Risk Factors: Yes Each Risk Factor Represents 2 Points: Age 61-74 years Other congenital or acquired thrombophilia - If yes, enter type in comment: No Thrombosis Risk Factor Assessment Total Risk Factor Score: 3 Thrombosis Risk Factor Assessment Level: Moderate Risk Assessment and Plan Assessment: New syncopal episode dizziness exertional shortness of breath history of atrial fibrillation coronary artery disease heart failure with ejection fraction of 35 to 40% COPD CVA/TIA Gerd hyperlipidemia hypertension sleep apnea/ CPAP BiPAP cardiomyopathy history of heart catheterization with stents mixed anxiety and depression Full code Plan: Near syncope/dizziness orthostatic perform emergency department negative/CTA of head and neck no acute abnormalities exertional shortness of breath/possible CHF IV diuretics for short-term. Vertigo Antivert 12.5 mg PO TID as needed for dizziness consultation with cardiology for expert opinion regarding near syncope and possible heart failure exacerbation continue home medications continue medical management hopeful discharge in 24 to 48 hrs. Time with Patient: Greater than 30
[2020-06-09 18:15] LABS: Basophils # (A) 0.1 k/uL (0-0.2); Basophils % (A) 1 %; Eosinophils # (A) 0.6 k/uL (0-0.7); Eosinophils % (A) 7 %; HCT 47.4 % (39.0-53.0); HGB 15.1 gm/dL (13.0-17.5); Lymphocytes # (A) 2.7 k/uL (1.0-4.8); Lymphocytes % (A) 32 %; MCH 28.1 pg (25.0-35.0); MCHC 31.8 g/dL (31.0-37.0); MCV 88.3 fL (80.0-100.0); Mean Platelet Volume 7.7; Monocytes # (A) 0.5 k/uL (0-1.0); Monocytes % (A) 6 %; Neutrophils # (A) 4.5 k/uL (1.3-7.7); Neutrophils % (A) 54 %; Platelet Count 324 k/uL (150-450); RBC 5.36 m/uL (4.30-5.90); RDW 14.6 % (11.5-15.5); WBC 8.5 k/uL (3.8-10.6)
[2020-06-09 18:19] LABS: ALT 22 U/L (4-49); AST 22 U/L (17-59); African American GFR (CKD) 78 (>60 ml/min/1.73 sqM); Albumin 3.5 g/dL (3.5-5.0); Albumin/Globulin Ratio 1.3; Alkaline Phosphatase 76 U/L (38-126); Anion Gap 5 mmol/L; Blood Urea Nitrogen 13 mg/dL (9-20); Calcium 9.2 mg/dL (8.4-10.2); Carbon Dioxide 27 mmol/L (22-30); Chloride 103 mmol/L (98-107); Globulin 2.8 g/dL; Glucose 98 mg/dL (74-99); Magnesium 1.8 mg/dL (1.6-2.3); Non-African American GFR(CKD) 68 (>60 ml/min/1.73 sqM); Potassium 4.4 mmol/L (3.5-5.1); Sodium 135 mmol/L (137-145); Total Bilirubin 0.3 mg/dL (0.2-1.3); Total Protein 6.3 g/dL (6.3-8.2)
[2020-06-09] MEDS: DOXEPIN 25 MG CAP PO SCH (20:55)
[2020-06-09] MEDS: MONTELUKAST 10 MG TAB PO SCH (20:56)
[2020-06-09] MEDS ORDERED: LOSARTAN 50 MG TAB PO SCH (21:00)
[2020-06-10 07:41] VITALS: BP 116/71; PULSE 59; RESP 16; TEMP 97.8
--- NOTE | 2020-06-10 08:00 | XR ---
EXAMINATION TYPE: XR chest 2V DATE OF EXAM: 06/10/2020 COMPARISON: 06/08/2020 INDICATION: Short of breath TECHNIQUE: Frontal and lateral views of the chest are obtained. FINDINGS: The heart size is normal. The pulmonary vasculature is normal. Minimal infiltrates at the left costophrenic angle. There is mild blunting left costophrenic angle. P acemaker overlies left chest. IMPRESSION: 1. Small nonspecific infiltrate left costophrenic angle with a minimal pleural effusion.
[2020-06-10] MEDS: SYMBICORT 160-4.5 MCG INHALER INHALATION SCH (08:08)
[2020-06-10] MEDS: ATORVASTATIN 20 MG TAB PO SCH (09:10)
[2020-06-10] MEDS: ASPIRIN 81 MG PO SCH (09:10)
[2020-06-10] MEDS: APIXABAN 5 MG TAB PO SCH (09:10)
[2020-06-10] MEDS: amLODIPine 10 MG TAB PO SCH (09:10)
[2020-06-10] MEDS: carvediloL 12.5 MG TAB PO SCH (09:10)
[2020-06-10] MEDS: PANTOPRAZOLE 40 MG TABLET PO SCH (09:10)
[2020-06-10] MEDS: SPIRONOLACTONE 25 MG TAB PO SCH (09:10)
[2020-06-10] MEDS: OXYBUTYNIN CHLORIDE 5 MG TAB PO SCH (09:10)
[2020-06-10] MEDS: QUEtiapine 200 MG TAB PO SCH (09:10)
--- NOTE | 2020-06-10 09:14 | P.DS ---
Providers Date of admission: 06/08/20 15:49 Expected date of discharge: 06/10/20 Attending physician: Hudson Moran Consults: 06/08/20 18:28 Consult Physician Urgent Consulting Provider: Andrew Skinner Consult Reason/Comments: CHF Do you want consulting provider notified?: Yes, Notify in am Primary care physician: Hudson Moran Hospital Course: 70-year-old male was noted to the hospital for near syncopal episodeswith associated dizziness/lightheadedness, exertional shortness of breath and generalized malaise. Patient's received mild IV diuresis for mild congestion dictated on chest x-ray. patient had orthostatics done in the emergency department and on the general medical floor negative. Patient was initiated on Antivert for dizziness with improvement, patient educated to slowly move from position from sitting to standing. Patient's labs and diagnostics reviewed and improved throughout hospital stay. Patient to follow-up with primary care in 1- 2 days, and cardiology within 1-2 weeks. Assessment: Near syncopal episodeorthostatics negative, CT head and neck negative, able to ambulate without the sensation of dizziness Dizzinessimproved with Antivert Exertional shortness of breathimproved with mild IV diuresis History of atrial fibrillation Permanent pacemaker Heart failure with ejection fraction of 35-40% COPD History of CVA/TIA GERD/reflux Hyperlipidemia Hypertension Sleep apnea syndrome Cardiomyopathy History of heart catheterization with stents Mixed anxiety and depression Health Concerns: Multiple comorbidities Comprehension with medical treatment plan Pertinent Studies: CT angiogram head and necksee dictation Serial chest x-raysee dictation Procedures: None performed Patient Condition at Discharge: Stable Plan - Discharge Summary Discharge Rx Participant: Yes New Discharge Prescriptions: New Meclizine [Antivert] 12.5 mg PO TID PRN #24 tab PRN Reason: Vertigo Losartan [Cozaar] 50 mg PO HS #30 tab Continue Mirtazapine 45 mg PO HS QUEtiapine [SEROquel] 200 mg PO BID Oxybutynin Chloride [Ditropan] 5 mg PO TID Omeprazole 40 mg PO AC-BRKFST Spironolactone [Aldactone] 25 mg PO DAILY Furosemide [Lasix] 20 mg PO DAILY Montelukast [Singulair] 10 mg PO HS Levocetirizine Dihydrochloride 5 mg PO DAILY Carvedilol 25 mg PO BID Budesonide/Formoterol Fumarate [Symbicort 160-4.5 Mcg Inhaler] 2 puff INHALATION RT-BID Citalopram Hydrobromide [CeleXA] 10 mg PO DAILY Doxepin [SINEquan] 25 mg PO HS Vitamin B Complex 1 cap PO DAILY Testosterone Cypionate [Depo-Testosterone] 200 mg IM Q14D Apixaban [Eliquis] 5 mg PO BID Denta 5000 Plus Cream 1 applic PO HS Atorvastatin [Lipitor] 20 mg PO DAILY Aspirin 81 mg PO DAILY #30 chewable Nitroglycerin Sl Tabs [Nitrostat] 0.4 mg SL Q5M PRN PRN Reason: Chest Pain Dicyclomine [Bentyl] 20 mg PO TID PRN #20 tablet PRN Reason: Diarrhea amLODIPine [Norvasc] 10 mg PO DAILY Discontinued Losartan Potassium [Cozaar] 100 mg PO HS Discharge Medication List Furosemide [Lasix] 20 mg PO DAILY 04/01/14 [History] Mirtazapine 45 mg PO HS 04/01/14 [History] Omeprazole 40 mg PO AC-BRKFST 04/01/14 [History] Oxybutynin Chloride [Ditropan] 5 mg PO TID 04/01/14 [History] QUEtiapine [SEROquel] 200 mg PO BID 04/01/14 [History] Spironolactone [Aldactone] 25 mg PO DAILY 04/01/14 [History] Budesonide/Formoterol Fumarate [Symbicort 160-4.5 Mcg Inhaler] 2 puff INHALATION RT-BID 07/20/14 [History] Carvedilol 25 mg PO BID 07/20/14 [History] Citalopram Hydrobromide [CeleXA] 10 mg PO DAILY 07/20/14 [History] Levocetirizine Dihydrochloride 5 mg PO DAILY 07/20/14 [History] Montelukast [Singulair] 10 mg PO HS 07/20/14 [History] Doxepin [SINEquan] 25 mg PO HS 01/17/16 [History] Testosterone Cypionate [Depo-Testosterone] 200 mg IM Q14D 01/17/16 [History] Vitamin B Complex 1 cap PO DAILY 01/17/16 [History] Apixaban [Eliquis] 5 mg PO BID 06/02/20 [History] Atorvastatin [Lipitor] 20 mg PO DAILY 06/02/20 [History] Denta 5000 Plus Cream 1 applic PO HS 06/02/20 [History] Aspirin 81 mg PO DAILY #30 chewable 06/04/20 [Rx] Dicyclomine [Bentyl] 20 mg PO TID PRN #20 tablet 06/06/20 [Rx] Nitroglycerin Sl Tabs [Nitrostat] 0.4 mg SL Q5M PRN 06/06/20 [History] amLODIPine [Norvasc] 10 mg PO DAILY 06/08/20 [History] Losartan [Cozaar] 50 mg PO HS #30 tab 06/10/20 [Rx] Meclizine [Antivert] 12.5 mg PO TID PRN #24 tab 06/10/20 [Rx] Follow up Appointment(s)/Referral(s): Hudson Moran MD [Primary Care Provider] - 1-2 days Kaden Monsalve MD [STAFF PHYSICIAN] - 1 Week
[2020-06-10] MEDS: CITALOPRAM HYDROBROMIDE 10 MG TAB PO SCH (09:16)
[2020-06-10] MEDS: LORATADINE 10 MG TAB PO SCH (09:16)
== END 2020-06-10 10:55 | disposition home or self-care (01) ==
LOC: EC 13:56 → 6NMEDSUR 15:49
PROVIDERS: ADMIT Family Medicine; ATTEND Family Medicine
DX: R55 Syncope and collapse (principal); R42 Dizziness and giddiness; I48.0 Paroxysmal atrial fibrillation; I11.0 Hypertensive heart disease with heart failure; I50.9 Heart failure, unspecified; J44.9 Chronic obstructive pulmonary disease, unspecified; I25.10 Atherosclerotic heart disease of native coronary artery without angina pectoris; I25.5 Ischemic cardiomyopathy; I49.3 Ventricular premature depolarization; D50.9 Iron deficiency anemia, unspecified; E78.5 Hyperlipidemia, unspecified; H91.90 Unspecified hearing loss, unspecified ear; K21.9 Gastro-esophageal reflux disease without esophagitis; G47.33 Obstructive sleep apnea (adult) (pediatric); M10.9 Gout, unspecified; G43.909 Migraine, unspecified, not intractable, without status migrainosus; K44.9 Diaphragmatic hernia without obstruction or gangrene; R53.81 Other malaise; I69.911 Memory deficit following unspecified cerebrovascular disease; F41.8 Other specified anxiety disorders; F32.9 Major depressive disorder, single episode, unspecified; Z20.822 Contact with and (suspected) exposure to COVID-19; F17.290 Nicotine dependence, other tobacco product, uncomplicated; Z79.01 Long term (current) use of anticoagulants; Z79.51 Long term (current) use of inhaled steroids; Z79.899 Other long term (current) drug therapy; Z79.82 Long term (current) use of aspirin; Z88.8 Allergy status to other drugs, medicaments and biological substances; Z87.01 Personal history of pneumonia (recurrent); Z86.010 Personal history of colon polyps; Z95.810 Presence of automatic (implantable) cardiac defibrillator; Z90.49 Acquired absence of other specified parts of digestive tract; Z95.5 Presence of coronary angioplasty implant and graft; Z98.42 Cataract extraction status, left eye; Z98.41 Cataract extraction status, right eye; Z84.1 Family history of disorders of kidney and ureter; Z82.49 Family history of ischemic heart disease and other diseases of the circulatory system; Z82.5 Family history of asthma and other chronic lower respiratory diseases; Z83.79 Family history of other diseases of the digestive system
CPT/HCPCS: 96376; 96361 ×3; 93005 ×2; 96365; 96366; 96375; 99285; 36415; 94640 ×4; 83880; 80053 ×2; 83735 ×2; 84484; 85025 ×2; 85610; 85730; 84145; 87635; 71046 ×2; 70496; 70498; G0378 ×3; J1940 ×2; J3475; Q9967

== ENCOUNTER → 2021-04-06 | Outpatient (CLI) | payer MEDICARE, OTHER ==
--- NOTE | 2021-04-06 14:31 | XR ---
EXAMINATION TYPE: XR chest 2V DATE OF EXAM: 04/06/2021 COMPARISON: Chest x-ray June 10, 2020 HISTORY: Cough for one month. TECHNIQUE: Frontal and lateral views of the chest are obtained. FINDINGS: There is persistent cardiomegaly with dual lead pacemaker/defibrillator and small to tiny left pleural effusion. Persistent bibasilar atelectasis and/or infiltrate. Upper lungs remain clear without pneumothorax. The osseous structures are intact. IMPRESSION: Cardiomegaly with small left pleural effusion and bibasilar acute infiltrate and/or atel ectasis redemonstrated. No significant change from prior chest x-ray.
== END | disposition home or self-care (01) ==
LOC: RADXRMAIN 14:14
PROVIDERS: ATTEND Family Medicine
DX: I51.7 Cardiomegaly (principal); J90 Pleural effusion, not elsewhere classified; I48.91 Unspecified atrial fibrillation; Z95.0 Presence of cardiac pacemaker; R94.31 Abnormal electrocardiogram [ECG] [EKG]
CPT/HCPCS: 71046; 93005

== ENCOUNTER 2021-05-29 17:05 | Inpatient (IN) | payer MEDICARE, OTHER ==
[2021-05-29] MEDS ORDERED: SODIUM CHLORIDE 0.9% 500 ML 500 ML IV STA (18:19)
--- NOTE | 2021-05-29 18:29 | ED ---
General Adult HPI - General Chief complaint: GI Bleed Stated complaint: rectal bleeding Time Seen by Provider: 05/29/21 17:15 Source: patient, EMS, RN notes reviewed, old records reviewed Mode of arrival: EMS Limitations: physical limitation - History of Present Illness Initial comments: This is a 71-year-old male who presents emergency department stating that after he ate he has some abdominal cramping said he went to the bathroom and diarrhea when he looked in the toilet all bright red blood. Patient states after that he felt a little lightheaded he denies any shortness of breath. Patient states he has had no chest pain or palpitations. Patient states she's had this before with diverticulosis. Patient states she's on eliquis for atrial fibrillation he also has a pacemaker defibrillator in place. Patient states the abdominal cramping has subsided and he has no abdominal pain at this time. Patient denies any nausea or vomiting. Patient denies any recent fever chills or cough. - Related Data Home Medications Medication Instructions Recorded Confirmed Furosemide [Lasix] 20 mg PO DAILY 04/01/14 06/08/20 Mirtazapine 45 mg PO HS 04/01/14 06/08/20 Omeprazole 40 mg PO AC-BRKFST 04/01/14 06/08/20 Oxybutynin Chloride [Ditropan] 5 mg PO TID 04/01/14 06/08/20 QUEtiapine [SEROquel] 200 mg PO BID 04/01/14 06/08/20 Spironolactone [Aldactone] 25 mg PO DAILY 04/01/14 06/08/20 Budesonide/Formoterol Fumarate 2 puff INHALATION RT-BID 07/20/14 06/08/20 [Symbicort 160-4.5 Mcg Inhaler] Carvedilol 25 mg PO BID 07/20/14 06/08/20 Citalopram Hydrobromide [CeleXA] 10 mg PO DAILY 07/20/14 06/08/20 Levocetirizine Dihydrochloride 5 mg PO DAILY 07/20/14 06/08/20 Montelukast [Singulair] 10 mg PO HS 07/20/14 06/08/20 Doxepin [SINEquan] 25 mg PO HS 01/17/16 06/08/20 Testosterone Cypionate 200 mg IM Q14D 01/17/16 06/08/20 [Depo-Testosterone] Vitamin B Complex 1 cap PO DAILY 01/17/16 06/08/20 Apixaban [Eliquis] 5 mg PO BID 06/02/20 06/08/20 Atorvastatin [Lipitor] 20 mg PO DAILY 06/02/20 06/08/20 Denta 5000 Plus Cream 1 applic PO HS 06/02/20 06/08/20 Nitroglycerin Sl Tabs [Nitrostat] 0.4 mg SL Q5M PRN 06/06/20 06/08/20 amLODIPine [Norvasc] 10 mg PO DAILY 06/08/20 06/08/20 Previous Rx's Medication Instructions Recorded Aspirin 81 mg PO DAILY #30 chewable 06/04/20 Dicyclomine [Bentyl] 20 mg PO TID PRN #20 tablet 06/06/20 Losartan [Cozaar] 50 mg PO HS #30 tab 06/10/20 Meclizine [Antivert] 12.5 mg PO TID PRN #24 tab 06/10/20 Allergies Allergy/AdvReac Type Severity Reaction Status Date / Time Barbiturates Allergy Anaphylaxis Verified 06/08/20 17:14 Review of Systems ROS Statement: Those systems with pertinent positive or pertinent negative responses have been documented in the HPI. ROS Other: All systems not noted in ROS Statement are negative. 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 Stovall, gout bilateral feet, occasional numbness L leg/L great toe, hx of PHIL with CPAP but no longer an issue since wt. 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 History of Any Multi-Drug Resistant Organisms: None Reported Past Surgical History: AICD, Cholecystectomy, Heart Catheterization, Heart Catheterization With Stent, Hernia Repair, Tonsillectomy Additional Past Surgical History / Comment(s): 07/24/14 EGD/colonoscopy with polypectomy/bx, 2005 AICD/2014 AICD changed to medtronic, 2002 Cardiac stent in [place], 2007 cardiac cath [facility], upper teeth extracted for denture, L ear has tube, R ear plugged, cyst removed L eyelid, bilateral cataract removal, L ganglion cyst removal, L/R inguinal hernia repairs with mesh, penile implant. Past Anesthesia/Blood Transfusion Reactions: No Reported Reaction Date of Last Stent Placement:: 2002 Type of Cardiac Device: AICD Device Placement Date:: 2014 Past Psychological History: Anxiety, Depression Smoking Status: Former smoker Past Alcohol Use History: Occasional Past Drug Use History: None Reported - Past Family History Father Family Medical History: Coronary Artery Disease (CAD), Pneumonia Additional Family Medical History / Comment(s): Father of pneumonia at the age of 82 yrs. Mother Family Medical History: Liver Disease, Renal Disease Additional Family Medical History / Comment(s): father passed after a bout with pneumonia General Exam - General Exam Comments Initial Comments: GENERAL: Patient is well-developed and well-nourished. Patient is nontoxic and well- hydrated and is in no acute distress. ENT: Neck is soft and supple. No significant lymphadenopathy is noted. Oropharynx is clear. Moist mucous membranes. Neck has full range of motion without eliciting any pain. EYES: The sclera were anicteric and conjunctiva were pink and moist. Extraocular movements were intact and pupils were equal round and reactive to light. Eyelids were unremarkable. PULMONARY: Unlabored respirations. Good breath sounds bilaterally. No audible rales rhonchi or wheezing was noted. CARDIOVASCULAR: There is a regular rate and rhythm without any murmurs gallops or rubs. ABDOMEN: Soft and nontender with normal bowel sounds. SKIN: Skin is clear with no lesions or rashes and otherwise unremarkable. NEUROLOGIC: Patient is alert and oriented x3. Cranial nerves II through XII are grossly intact. Motor and sensory are also intact. Normal speech, volume and content. Symmetrical smile. MUSCULOSKELETAL: Normal extremities with adequate strength and full range of motion. LYMPHATICS: No significant lymphadenopathy is noted PSYCHIATRIC: Normal psychiatric evaluation. Limitations: physical limitation Course Vital Signs 05/29/21 17:12 Pulse Rate 60 Respiratory 14 Rate Blood Pressure 144/87 O2 Sat by Pulse 98 Oximetry Medical Decision Making - Lab Data Result diagrams: 05/29/21 18:37 05/29/21 18:37 Lab Results 05/29/21 05/29/21 05/29/21 Range/Units 18:37 18:37 18:37 WBC 10.8 H (3.8-10.6) k/uL RBC 4.97 (4.30-5.90) m/uL Hgb 15.0 (13.0-17.5) gm/dL Hct 45.3 (39.0-53.0) % MCV 91.1 (80.0-100.0) fL MCH 30.1 (25.0-35.0) pg MCHC 33.1 (31.0-37.0) g/dL RDW 14.0 (11.5-15.5) % Plt Count 298 (150-450) k/uL MPV 8.1 Neutrophils % 74 % Lymphocytes % 17 % Monocytes % 7 % Eosinophils % 1 % Basophils % 0 % Neutrophils # 8.0 H (1.3-7.7) k/uL Lymphocytes # 1.8 (1.0-4.8) k/uL Monocytes # 0.8 (0-1.0) k/uL Eosinophils # 0.1 (0-0.7) k/uL Basophils # 0.0 (0-0.2) k/uL Sodium 135 L (137-145) mmol/L Potassium 4.6 (3.5-5.1) mmol/L Chloride 105 (98-107) mmol/L Carbon Dioxide 22 (22-30) mmol/L Anion Gap 8 mmol/L BUN 13 (9-20) mg/dL Creatinine 0.83 (0.66-1.25) mg/dL Est GFR (CKD-EPI)AfAm >90 (>60 ml/min/1.73 sqM) Est GFR (CKD-EPI)NonAf 89 (>60 ml/min/1.73 sqM) Glucose 106 H (74-99) mg/dL Calcium 8.9 (8.4-10.2) mg/dL Magnesium 1.7 (1.6-2.3) mg/dL Total Bilirubin 1.5 H (0.2-1.3) mg/dL AST 38 (17-59) U/L ALT 21 (4-49) U/L Alkaline Phosphatase 75 (38-126) U/L Troponin I 0.019 (0.000-0.034) ng/mL Total Protein 7.6 (6.3-8.2) g/dL Albumin 4.2 (3.5-5.0) g/dL Blood Type Blood Type Recheck Bld Type Recheck Status Antibody Screen Spec Expiration Date 05/29/21 Range/Units 18:37 WBC (3.8-10.6) k/uL RBC (4.30-5.90) m/uL Hgb (13.0-17.5) gm/dL Hct (39.0-53.0) % MCV (80.0-100.0) fL MCH (25.0-35.0) pg MCHC (31.0-37.0) g/dL RDW (11.5-15.5) % Plt Count (150-450) k/uL MPV Neutrophils % % Lymphocytes % % Monocytes % % Eosinophils % % Basophils % % Neutrophils # (1.3-7.7) k/uL Lymphocytes # (1.0-4.8) k/uL Monocytes # (0-1.0) k/uL Eosinophils # (0-0.7) k/uL Basophils # (0-0.2) k/uL Sodium (137-145) mmol/L Potassium (3.5-5.1) mmol/L Chloride (98-107) mmol/L Carbon Dioxide (22-30) mmol/L Anion Gap mmol/L BUN (9-20) mg/dL Creatinine (0.66-1.25) mg/dL Est GFR (CKD-EPI)AfAm (>60 ml/min/1.73 sqM) Est GFR (CKD-EPI)NonAf (>60 ml/min/1.73 sqM) Glucose (74-99) mg/dL Calcium (8.4-10.2) mg/dL Magnesium (1.6-2.3) mg/dL Total Bilirubin (0.2-1.3) mg/dL AST (17-59) U/L ALT (4-49) U/L Alkaline Phosphatase (38-126) U/L Troponin I (0.000-0.034) ng/mL Total Protein (6.3-8.2) g/dL Albumin (3.5-5.0) g/dL Blood Type O Positive Blood Type Recheck O Pos Bld Type Recheck Status No Antibody Screen NEGATIVE Spec Expiration Date 06/01/20212336 Disposition Clinical Impression: GI bleed Disposition: ADMITTED IP TO THIS HOSP Referrals: Hudson Moran MD [Primary Care Provider] - 1-2 days Time of Disposition: 20:35
[2021-05-29 18:49] LABS: Basophils % (A) 0 %; Eosinophils # (A) 0.1 k/uL (0-0.7); Eosinophils % (A) 1 %; HCT 45.3 % (39.0-53.0); Lymphocytes # (A) 1.8 k/uL (1.0-4.8); Lymphocytes % (A) 17 %; MCH 30.1 pg (25.0-35.0); MCHC 33.1 g/dL (31.0-37.0); MCV 91.1 fL (80.0-100.0); Mean Platelet Volume 8.1; Monocytes # (A) 0.8 k/uL (0-1.0); Monocytes % (A) 7 %; Neutrophils % (A) 74 %; Platelet Count 298 k/uL (150-450); RBC 4.97 m/uL (4.30-5.90); WBC 10.8 k/uL (3.8-10.6)
[2021-05-29 19:08] LABS: ALT 21 U/L (4-49); African American GFR (CKD) >90 (>60 ml/min/1.73 sqM); Anion Gap 8 mmol/L; Blood Urea Nitrogen 13 mg/dL (9-20); Calcium 8.9 mg/dL (8.4-10.2); Carbon Dioxide 22 mmol/L (22-30); Chloride 105 mmol/L (98-107); Glucose 106 mg/dL (74-99); Magnesium 1.7 mg/dL (1.6-2.3); Non-African American GFR(CKD) 89 (>60 ml/min/1.73 sqM); Sodium 135 mmol/L (137-145); Total Bilirubin 1.5 mg/dL (0.2-1.3)
[2021-05-29 19:13] LABS: AST 38 U/L (17-59); Albumin 4.2 g/dL (3.5-5.0); Alkaline Phosphatase 75 U/L (38-126); Potassium 4.6 mmol/L (3.5-5.1); Total Protein 7.6 g/dL (6.3-8.2)
[2021-05-29] MEDS ORDERED: SODIUM CHLORIDE 0.9% 1,000 ML IV ONE (20:35)
[2021-05-29 20:47] LABS: INR 0.9 (<1.2); Prothrombin Time 10.2 sec (9.0-12.0)
[2021-05-29 23:22] LABS: Basophils # (A) 0.1 k/uL (0-0.2); Basophils % (A) 1 %; Eosinophils # (A) 0.1 k/uL (0-0.7); Eosinophils % (A) 1 %; HCT 43.1 % (39.0-53.0); Lymphocytes # (A) 2.9 k/uL (1.0-4.8); Lymphocytes % (A) 31 %; MCH 29.4 pg (25.0-35.0); MCHC 32.4 g/dL (31.0-37.0); MCV 90.8 fL (80.0-100.0); Mean Platelet Volume 8.1; Monocytes # (A) 0.5 k/uL (0-1.0); Monocytes % (A) 6 %; Neutrophils # (A) 5.7 k/uL (1.3-7.7); Neutrophils % (A) 60 %; Platelet Count 279 k/uL (150-450); RBC 4.74 m/uL (4.30-5.90); RDW 13.6 % (11.5-15.5); WBC 9.4 k/uL (3.8-10.6)
[2021-05-30] MEDS ORDERED: NITROGLYCERIN SL TABS 0.4 MG TAB SUBLINGUAL PRN (00:09)
[2021-05-30] MEDS: MONTELUKAST 10 MG TAB PO SCH ×2 (00:27→21:28)
[2021-05-30] MEDS: MIRTAZAPINE 45 MG TABLET PO SCH ×2 (00:27→21:28)
[2021-05-30] MEDS: DOXEPIN 25 MG CAP PO SCH ×2 (00:28→21:28)
[2021-05-30] MEDS: OXYBUTYNIN CHLORIDE 5 MG TAB PO SCH ×4 (00:28→21:28)
[2021-05-30 06:41] LABS: Basophils % (A) 0 %; Eosinophils # (A) 0.2 k/uL (0-0.7); Eosinophils % (A) 2 %; HCT 42.5 % (39.0-53.0); HGB 13.9 gm/dL (13.0-17.5); Lymphocytes # (A) 3.1 k/uL (1.0-4.8); Lymphocytes % (A) 40 %; MCH 29.7 pg (25.0-35.0); MCHC 32.8 g/dL (31.0-37.0); MCV 90.6 fL (80.0-100.0); Mean Platelet Volume 8.2; Monocytes # (A) 0.6 k/uL (0-1.0); Monocytes % (A) 8 %; Neutrophils # (A) 3.8 k/uL (1.3-7.7); Neutrophils % (A) 49 %; Platelet Count 272 k/uL (150-450); RBC 4.69 m/uL (4.30-5.90); RDW 13.6 % (11.5-15.5); WBC 7.7 k/uL (3.8-10.6)
[2021-05-30] MEDS: SYMBICORT 160-4.5 MCG INHALER INHALATION SCH ×2 (08:14→19:27)
[2021-05-30] MEDS: ALBUTEROL NEBULIZED 2.5 MG/3 ML INHALATION PRN ×3 (08:14→19:26)
[2021-05-30] MEDS ORDERED: VERAPAMIL SR 120 MG TABLET.ER PO SCH (09:00)
[2021-05-30] MEDS: ASPIRIN 81 MG PO SCH (09:30)
[2021-05-30] MEDS: PANTOPRAZOLE 40 MG TABLET PO SCH (09:30)
[2021-05-30] MEDS: carvediloL 12.5 MG TAB PO SCH ×2 (09:30→17:11)
[2021-05-30] MEDS: FUROSEMIDE 20 MG TAB PO SCH (09:30)
[2021-05-30] MEDS: DOCUSATE 100 MG CAP PO SCH (09:31)
[2021-05-30] MEDS: QUEtiapine 200 MG TAB PO SCH ×2 (09:31→21:28)
[2021-05-30] MEDS: ATORVASTATIN 20 MG TAB PO SCH (09:31)
[2021-05-30] MEDS: SPIRONOLACTONE 25 MG TAB PO SCH (09:31)
[2021-05-30] MEDS: LOSARTAN 50 MG TAB PO SCH (09:31)
[2021-05-30] MEDS: CITALOPRAM HYDROBROMIDE 10 MG TAB PO SCH (09:32)
--- NOTE | 2021-05-30 10:28 | P.CRDCN ---
History of Present Illness Consult date: 05/30/21 History of present illness: HISTORY OF PRESENT ILLNESS: This is a 71-year-old male with a past medical history significant for coronary artery disease with previous PCI, ischemic cardiomyopathy with AICD implantation, hypertension, hyperlipidemia, and paroxysmal atrial fibrillation on Eliquis. Patient follows in the office with Dr. Monsalve. We have been asked to see the patient in consultation for atrial fibrillation. Patient examined at the bedside. Patient presented to the hospital with a chief complaint of bright red blood per rectum. Patient is prescribed Eliquis on an outpatient basis for his atrial fibrillation. Patient reports having 2 bowel movements since midnight with bright red blood. Patient's hemoglobin 15.0 on admission. Most recent hemoglobin 13.9. The patient has also been receiving IV fluids at 75 mL an hour. Patient denies any chest pain or pressure. He denies shortness of breath. His Eliquis has been placed on hold. * EKG not completed at the time of this dictation * Laboratory data: W BC 7.7. Hemoglobin 13.9. Platelet count 272. Sodium 135. Potassium 4.6. BUN 13. Creatinine 0.83. Magnesium 1.7. Troponin negative 1. * Current home cardiac medications include verapamil 120 mg daily, Aldactone 25 mg daily, Lasix 20 mg daily, carvedilol 12.5 mg twice a day, Lipitor 20 mg daily, aspirin 81 mg daily, and Eliquis 5 mg twice a day * Patient had an echocardiogram completed in the office on 05/18/2021 revealing ejection fraction 35-40%, global LV hypokinesis, mild aortic regurgitation, mild mitral regurgitation, [id number] tricuspid regurgitation, and moderate pulmonary hypertension * Most recent cardiac catheterization was performed at [facility] in June 2017 revealing normal ejection fraction, 40% RCA stenosis proximal to the stented segment that was pain. Circumflex groove branch, nondominant vessel of the small caliber. LAD has minor irregularities. No significant disease. Advised medical therapy. REVIEW OF SYSTEMS: At the time of my exam: CONSTITUTIONAL: Denies fever or chills. HEENT: Denies blurred vision, vision changes, or eye pain. Denies hemoptysis CARDIOVASCULAR: Denies chest pain. Denies orthopnea. Denies PND. Denies palpitations RESPIRATORY: Denies shortness of breath. GASTROINTESTINAL: Denies abdominal pain. Denies nausea or vomiting. HEMATOLOGIC: Denies bleeding disorders. GENITOURINARY: Denies any blood in urine. SKIN: Denies pruitis. Denies rash. PHYSICAL EXAM: VITAL SIGNS: Reviewed. GENERAL: Well-developed in no acute distress. HEENT: Head is normocephalic. Pupils are equal, round. Sclerae anicteric. Mucous membranes of the mouth are moist. Neck supple. No JVD or thyromegaly LUNGS: Respirations even and unlabored. Lungs essentially clear to auscultation bilaterally. HEART: Regular rate and rhythm. S1 and S2 heard. ABDOMEN: Soft. Nondistended. Nontender. EXTREMITIES: Normal range of motion. No clubbing or cyanosis. Peripheral pulses intact. No lower extremity edema NEUROLOGIC: Awake and alert. Oriented x 3. ASSESSMENT: Bright red blood per rectum, r/o GI bleed Paroxysmal atrial fibrillation Ischemic cardiomyopathy with AICD implantation Coronary artery disease with previous PCI Hypertension Hyperlipidemia PLAN: No need to repeat echogram as this was performed last month in the office Continue home cardiac medications Hold Eliquis Continue aspirin 81 mg daily Gen. surgery consulted for evaluation Continue to monitor hemoglobin Further recommendations pending patient course Nurse practitioner note has been reviewed by physician. Signing provider agrees with the documented findings, assessment, and plan of care. 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 Stovall, gout bilateral feet, occasional numbness L leg/L great toe, hx of PHIL with CPAP but no longer an issue since wt. 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 History of Any Multi-Drug Resistant Organisms: None Reported Past Surgical History: AICD, Cholecystectomy, Heart Catheterization, Heart Catheterization With Stent, Hernia Repair, Tonsillectomy Additional Past Surgical History / Comment(s): 07/24/14 EGD/colonoscopy with polypectomy/bx, 2005 AIC AICD changed to [employer] 2002 Cardiac stent in [place], 2007 cardiac cath [facility], upper teeth extracted for denture, L ear has tube, R ear plugged, cyst removed L eyelid, bilateral cataract removal, L ganglion cyst removal, L/R inguinal hernia repairs with mesh, penile implant. Past Anesthesia/Blood Transfusion Reactions: No Reported Reaction Date of Last Stent Placement:: 2002 Type of Cardiac Device: AICD Device Placement Date:: 2014 Past Psychological History: Anxiety, Depression Additional Psychological History / Comment(s): Pt lives alone in an apartment. He is independent. He does not own a vehicle so he uses [employer] [facility] to get to appointments. Smoking Status: Never smoker Past Alcohol Use History: Occasional Additional Past Alcohol Use History / Comment(s): Pt started smoking an occasional cigar about 1 1/2 yrs ago. Past Drug Use History: None Reported - Past Family History Father Family Medical History: Coronary Artery Disease (CAD), Pneumonia Additional Family Medical History / Comment(s): Father of pneumonia at the age of 82 yrs. Mother Family Medical History: Liver Disease, Renal Disease Additional Family Medical History / Comment(s): father passed after a bout with pneumonia Medications and Allergies Home Medications Medication Instructions Recorded Confirmed Type Furosemide [Lasix] 20 mg PO DAILY 04/01/14 05/29/21 History Mirtazapine 45 mg PO HS 04/01/14 05/29/21 History Omeprazole 40 mg PO AC-BRKFST 04/01/14 05/29/21 History Oxybutynin Chloride [Ditropan] 5 mg PO TID 04/01/14 05/29/21 History QUEtiapine [SEROquel] 200 mg PO BID 04/01/14 05/29/21 History Spironolactone [Aldactone] 25 mg PO DAILY 04/01/14 05/29/21 History Budesonide/Formoterol Fumarate 2 puff INHALATION RT-BID 07/20/14 05/29/21 History [Symbicort 160-4.5 Mcg Inhaler] Citalopram Hydrobromide [CeleXA] 10 mg PO DAILY 07/20/14 05/29/21 History Levocetirizine Dihydrochloride 5 mg PO DAILY 07/20/14 05/29/21 History Montelukast [Singulair] 10 mg PO HS 07/20/14 05/29/21 History Doxepin [SINEquan] 25 mg PO HS 01/17/16 05/29/21 History Apixaban [Eliquis] 5 mg PO BID 06/02/20 05/29/21 History Atorvastatin [Lipitor] 20 mg PO DAILY 06/02/20 05/29/21 History Aspirin 81 mg PO DAILY #30 chewable 06/04/20 05/29/21 Rx Nitroglycerin Sl Tabs [Nitrostat] 0.4 mg SL Q5M PRN 06/06/20 05/29/21 History Albuterol Inhaler [Ventolin Hfa 2 puff INHALATION RT-QID PRN 05/29/21 05/29/21 History Inhaler] Carvedilol [Coreg] 12.5 mg PO BID-W/MEALS 05/29/21 05/29/21 History Docusate [Colace] 100 mg PO DAILY 05/29/21 05/29/21 History Verapamil HCl [Verapamil Sr] 120 mg PO DAILY 05/29/21 05/29/21 History Allergies Allergy/AdvReac Type Severity Reaction Status Date / Time Barbiturates Allergy Anaphylaxis Verified 05/29/21 20:37 Physical Exam Vitals: Vital Signs Temp Pulse Pulse Resp BP BP Pulse Ox 05/30/21 09:28 73 178/103 05/30/21 08:27 63 05/30/21 08:18 60 05/30/21 04:23 97.9 F 55 L 18 154/86 98 05/30/21 01:20 165/75 05/29/21 23:45 159/84 05/29/21 22:32 98.1 F 61 18 170/80 98 05/29/21 22:30 18 05/29/21 21:03 73 16 131/98 98 05/29/21 17:12 60 14 144/87 98 Intake and Output 05/29/21 05/30/21 05/30/21 22:59 06:59 14:59 Intake Total 600 Output Total 500 Balance 100 Intake: Intake, IV Titration 600 Amount Sodium Chloride 0.9% 1, 600 000 ml @ 75 mls/hr IV . [id number] ONE Rx#:[id number] Output: Urine 500 Other: Voiding Method Toilet Urinal Weight 99.79 kg Results 05/30/21 05:38 05/29/21 18:37 Cardiac Enzymes 05/29/21 05/29/21 Range/Units 18:37 18:37 AST 38 (17-59) U/L Troponin I 0.019 (0.000-0.034) ng/mL Coagulation 05/29/21 Range/Units 19:40 PT 10.2 (9.0-12.0) sec APTT 26.0 (22.0-30.0) sec CBC 05/29/21 05/29/21 05/30/21 Range/Units 18:37 22:51 05:38 WBC 10.8 H 9.4 7.7 (3.8-10.6) k/uL RBC 4.97 4.74 4.69 (4.30-5.90) m/uL Hgb 15.0 14.0 13.9 (13.0-17.5) gm/dL Hct 45.3 43.1 42.5 (39.0-53.0) % Plt Count 298 279 272 (150-450) k/uL Comprehensive Metabolic Panel 05/29/21 Range/Units 18:37 Sodium 135 L (137-145) mmol/L Potassium 4.6 (3.5-5.1) mmol/L Chloride 105 (98-107) mmol/L Carbon Dioxide 22 (22-30) mmol/L BUN 13 (9-20) mg/dL Creatinine 0.83 (0.66-1.25) mg/dL Glucose 106 H (74-99) mg/dL Calcium 8.9 (8.4-10.2) mg/dL AST 38 (17-59) U/L ALT 21 (4-49) U/L Alkaline Phosphatase 75 (38-126) U/L Total Protein 7.6 (6.3-8.2) g/dL Albumin 4.2 (3.5-5.0) g/dL Current Medications Generic Name Dose Route Start Last Admin Trade Name Freq PRN Reason Stop Dose Admin Albuterol Sulfate 2.5 mg 05/30/21 00:09 05/30/21 08:14 Albuterol Nebulized 2.5 Mg/3 Ml INHALATION 2.5 mg RT-QID PRN Administration Shortness Of Breath Aspirin 81 mg 05/30/21 09:00 05/30/21 09:30 Aspirin 81 Mg PO 81 mg DAILY NOREEN Administration Atorvastatin Calcium 20 mg 05/30/21 09:00 05/30/21 09:31 Atorvastatin 20 Mg Tab PO 20 mg DAILY NOREEN Administration Budesonide/Formoterol Fumarate 2 puff 05/30/21 08:00 05/30/21 08:14 Symbicort 160-4.5 Mcg Inhaler INHALATION 2 puff RT-BID NOREEN Administration Carvedilol 12.5 mg 05/30/21 07:30 05/30/21 09:30 Carvedilol 12.5 Mg Tab PO 12.5 mg BID-W/MEALS NOREEN Administration Citalopram Hydrobromide 10 mg 05/30/21 09:00 05/30/21 09:32 Citalopram Hydrobromide 10 Mg Tab PO 10 mg DAILY NOREEN Administration Docusate Sodium 100 mg 05/30/21 09:00 05/30/21 09:31 Docusate 100 Mg Cap PO Not Given DAILY NOREEN Doxepin HCl 25 mg 05/30/21 00:15 05/30/21 00:28 Doxepin 25 Mg Cap PO 25 mg HS NOREEN Administration Furosemide 20 mg 05/30/21 09:00 05/30/21 09:30 Furosemide 20 Mg Tab PO 20 mg DAILY NOREEN Administration Losartan Potassium 50 mg 05/30/21 09:00 05/30/21 09:31 Losartan 50 Mg Tab PO 50 mg DAILY NOREEN Administration Mirtazapine 45 mg 05/30/21 00:15 05/30/21 00:27 Mirtazapine 45 Mg Tablet PO 45 mg HS NOREEN Administration Montelukast Sodium 10 mg 05/30/21 00:15 05/30/21 00:27 Montelukast 10 Mg Tab PO 10 mg HS NOREEN Administration Nitroglycerin 0.4 mg 05/30/21 00:09 Nitroglycerin Sl Tabs 0.4 Mg Tab SUBLINGUAL Q5M PRN Chest Pain Oxybutynin Chloride 5 mg 05/30/21 00:15 05/30/21 09:31 Oxybutynin Chloride 5 Mg Tab PO 5 mg TID NOREEN Administration Pantoprazole Sodium 40 mg 05/30/21 07:30 05/30/21 09:30 Pantoprazole 40 Mg Tablet PO 40 mg AC-BRKFST NOREEN Administration Quetiapine Fumarate 200 mg 05/30/21 09:00 05/30/21 09:31 Quetiapine 200 Mg Tab PO 200 mg BID NOREEN Administration Spironolactone 25 mg 05/30/21 09:00 05/30/21 09:31 Spironolactone 25 Mg Tab PO 25 mg DAILY NOREEN Administration Intake and Output 05/29/21 05/30/21 05/30/21 22:59 06:59 14:59 Intake Total 600 Output Total 500 Balance 100 Intake: Intake, IV Titration 600 Amount Sodium Chloride 0.9% 1, 600 000 ml @ 75 mls/hr IV . [id number] ONE Rx#:[id number] Output: Urine 500 Other: Voiding Method Toilet Urinal Weight 99.79 kg 05/30/21 05:38 05/29/21 18:37
--- NOTE | 2021-05-30 11:56 | P.GSCN ---
History of Present Illness Consult date: 05/30/21 History of present illness: CHIEF COMPLAINT: Rectal bleeding HISTORY OF PRESENT ILLNESS: This is a 71-year-old male with a known history of diverticulosis with prior GI bleed. He also is on FOR atrial fibrillation. Patient presents to the hospital with complaints of bright red blood that started yesterday. He reports that he ate a can of ravioli that may have been spoiled. Shortly after eating that he started to have abdominal pain with cramping and diarrhea. The second bout of diarrhea patient reports having a lot of blood. He continued to have about 4 bloody stools throughout the night yesterday. Came into the ER for further evaluation and treatment. Patient reports his last colonoscopy and EGD were about 3-4 years ago at that time he had benign polyps removed and evidence of diverticulosis. Hemoglobin on admission was 15 down to 13.9. Patient's Eliquis is currently on hold. Afebrile. His pain and abdominal bloating are doing better. PAST MEDICAL HISTORY: Atrial Fibrillation, Coronary Artery Disease (CAD), Heart Failure, COPD, CVA/TIA, GERD/Reflux, Hearing Disorder / Deafness, Hyperlipidemia, Hypertension, Pneumonia, Sleep Apnea/CPAP/BIPAP, Syncope PAST SURGICAL HISTORY: AICD, Cholecystectomy, Heart Catheterization, Heart Catheterization With Stent, Hernia Repair, Tonsillectomy MEDICATIONS: See list. ALLERGIES: See list. SOCIAL HISTORY: No illicit drug use. REVIEW OF SYSTEMS: CONSTITUTIONAL: Denies fever or chills. HEENT: Denies blurred vision, vision changes, or eye pain. Denies hemoptysis CARDIOVASCULAR: Denies chest pain or pressure. RESPIRATORY: No shortness of breath. GASTROINTESTINAL: See HPI for pertinent findings HEMATOLOGIC: Denies bleeding disorders. GENITOURINARY: Denies any blood in urine or increased urinary frequency. SKIN: Denies pruitis. Denies rash. PHYSICAL EXAM: VITAL SIGNS: Reviewed GENERAL: Well-developed in no acute distress. HEENT: No sclera icterus. Extraocular movements grossly intact. Moist buccal mucosa. Head is atraumatic, normocephalic. No nasal drainage. ABDOMEN: Soft. Nondistended. Nontender NEUROLOGIC: Alert and oriented. Cranial nerves II through XII grossly intact. LABORATORY DATA: WBC 10.8 down to 7.7 hemoglobin 15 down to 13.9 platelets 272 IMAGING: ASSESSMENT: 1. Acute GI bleed with bright red blood per rectum with diarrhea PLAN: -Patient scheduled for colonoscopy on , 06/01/[address] Meehan -Continue a clear liquid diet -Start GoLYTELY prep tomorrow -Continue to hold Eliquis -Continue IV fluids -Continue to monitor for any signs or symptoms of bleeding -Continue to monitor hemoglobin Thank you for this consultation Physician Talent Director note has been reviewed by physician. Signing provider agrees with the documented findings, assessment, and plan of care. 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 Stovall, gout bilateral feet, occasional numbness L leg/L great toe, hx of PHIL with CPAP but no longer an issue since wt. 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 History of Any Multi-Drug Resistant Organisms: None Reported Past Surgical History: AICD, Cholecystectomy, Heart Catheterization, Heart Catheterization With Stent, Hernia Repair, Tonsillectomy Additional Past Surgical History / Comment(s): 07/24/14 EGD/colonoscopy with polypectomy/bx, 2005 AICD/2014 AICD changed to [employer], 2002 Cardiac stent in [place], 2007 cardiac cath [facility], upper teeth extracted for denture, L ear has tube, R ear plugged, cyst removed L eyelid, bilateral cataract removal, L ganglion cyst removal, L/R inguinal hernia repairs with mesh, penile implant. Past Anesthesia/Blood Transfusion Reactions: No Reported Reaction Date of Last Stent Placement:: 2002 Type of Cardiac Device: AICD Device Placement Date:: 2014 Past Psychological History: Anxiety, Depression Additional Psychological History / Comment(s): Pt lives alone in an apartment. He is independent. He does not own a vehicle so he uses [employer] to get to appointments. Smoking Status: Never smoker Past Alcohol Use History: Occasional Additional Past Alcohol Use History / Comment(s): Pt started smoking an occasional cigar about 1 1/2 yrs ago. Past Drug Use History: None Reported - Past Family History Father Family Medical History: Coronary Artery Disease (CAD), Pneumonia Additional Family Medical History / Comment(s): Father of pneumonia at the age of 82 yrs. Mother Family Medical History: Liver Disease, Renal Disease Additional Family Medical History / Comment(s): father passed after a bout with pneumonia Medications and Allergies Home Medications Medication Instructions Recorded Confirmed Type Furosemide [Lasix] 20 mg PO DAILY 04/01/14 05/29/21 History Mirtazapine 45 mg PO HS 04/01/14 05/29/21 History Omeprazole 40 mg PO AC-BRKFST 04/01/14 05/29/21 History Oxybutynin Chloride [Ditropan] 5 mg PO TID 04/01/14 05/29/21 History QUEtiapine [SEROquel] 200 mg PO BID 04/01/14 05/29/21 History Spironolactone [Aldactone] 25 mg PO DAILY 04/01/14 05/29/21 History Budesonide/Formoterol Fumarate 2 puff INHALATION RT-BID 07/20/14 05/29/21 History [Symbicort 160-4.5 Mcg Inhaler] Citalopram Hydrobromide [CeleXA] 10 mg PO DAILY 07/20/14 05/29/21 History Levocetirizine Dihydrochloride 5 mg PO DAILY 07/20/14 05/29/21 History Montelukast [Singulair] 10 mg PO HS 07/20/14 05/29/21 History Doxepin [SINEquan] 25 mg PO HS 01/17/16 05/29/21 History Apixaban [Eliquis] 5 mg PO BID 06/02/20 05/29/21 History Atorvastatin [Lipitor] 20 mg PO DAILY 06/02/20 05/29/21 History Aspirin 81 mg PO DAILY #30 chewable 06/04/20 05/29/21 Rx Nitroglycerin Sl Tabs [Nitrostat] 0.4 mg SL Q5M PRN 06/06/20 05/29/21 History Albuterol Inhaler [Ventolin Hfa 2 puff INHALATION RT-QID PRN 05/29/21 05/29/21 History Inhaler] Carvedilol [Coreg] 12.5 mg PO BID-W/MEALS 05/29/21 05/29/21 History Docusate [Colace] 100 mg PO DAILY 05/29/21 05/29/21 History Verapamil HCl [Verapamil Sr] 120 mg PO DAILY 05/29/21 05/29/21 History Allergies Allergy/AdvReac Type Severity Reaction Status Date / Time Barbiturates Allergy Anaphylaxis Verified 05/29/21 20:37 Surgical - Exam Vital Signs Pulse Resp BP Pulse Ox 60 14 144/87 98 05/29/21 17:12 05/29/21 17:12 05/29/21 17:12 05/29/21 17:12 Results - Labs 05/30/21 05:38 05/29/21 18:37 Abnormal Lab Results - Last 24 Hours (Table) 05/29/21 05/29/21 Range/Units 18:37 18:37 WBC 10.8 H (3.8-10.6) k/uL Neutrophils # 8.0 H (1.3-7.7) k/uL Sodium 135 L (137-145) mmol/L Glucose 106 H (74-99) mg/dL Total Bilirubin 1.5 H (0.2-1.3) mg/dL Diabetes panel 05/29/21 Range/Units 18:37 Sodium 135 L (137-145) mmol/L Potassium 4.6 (3.5-5.1) mmol/L Chloride 105 (98-107) mmol/L Carbon Dioxide 22 (22-30) mmol/L BUN 13 (9-20) mg/dL Creatinine 0.83 (0.66-1.25) mg/dL Glucose 106 H (74-99) mg/dL Calcium 8.9 (8.4-10.2) mg/dL AST 38 (17-59) U/L ALT 21 (4-49) U/L Alkaline Phosphatase 75 (38-126) U/L Total Protein 7.6 (6.3-8.2) g/dL Albumin 4.2 (3.5-5.0) g/dL Calcium panel 05/29/21 Range/Units 18:37 Calcium 8.9 (8.4-10.2) mg/dL Albumin 4.2 (3.5-5.0) g/dL Pituitary panel 05/29/21 Range/Units 18:37 Sodium 135 L (137-145) mmol/L Potassium 4.6 (3.5-5.1) mmol/L Chloride 105 (98-107) mmol/L Carbon Dioxide 22 (22-30) mmol/L BUN 13 (9-20) mg/dL Creatinine 0.83 (0.66-1.25) mg/dL Glucose 106 H (74-99) mg/dL Calcium 8.9 (8.4-10.2) mg/dL Adrenal panel 05/29/21 Range/Units 18:37 Sodium 135 L (137-145) mmol/L Potassium 4.6 (3.5-5.1) mmol/L Chloride 105 (98-107) mmol/L Carbon Dioxide 22 (22-30) mmol/L BUN 13 (9-20) mg/dL Creatinine 0.83 (0.66-1.25) mg/dL Glucose 106 H (74-99) mg/dL Calcium 8.9 (8.4-10.2) mg/dL Total Bilirubin 1.5 H (0.2-1.3) mg/dL AST 38 (17-59) U/L ALT 21 (4-49) U/L Alkaline Phosphatase 75 (38-126) U/L Total Protein 7.6 (6.3-8.2) g/dL Albumin 4.2 (3.5-5.0) g/dL
--- NOTE | 2021-05-30 17:12 | P.HPIM ---
History of Present Illness H&P Date: 05/30/21 Chief Complaint: GI bleed Patient is a pleasant 71-year-old male that presented to the emergency room with abdominal cramping and multiple episodes of bloody stool. Patient states this started after eating ravioli. Patient has a significant medical history that includes atrial fibrillation on eliquis, diverticulosis, coronary artery disease, heart failure, COPD, GERD, hypertension, hyperlipidemia. Surgical history includes cardiac stent, EGD/colonoscopy with polypectomy, and AICD placement. Hemoglobin on admission was 15.0. Cardiology and Gen. surgery was c onsulted. Eliquis and aspirin on hold. Hospitalist coverage 05/29/2021 05/30/2021 Patient was seen and examined at bedside. Patient was resting comfortably in bed in no acute distress. Patient reports continued diarrhea and abdominal bloating. General surgery is recommending colonoscopy on to assess cause of bleed. Patient will be on a clear liquid diet and begin bowel prep tomorrow. Patient will be monitored while being off anticoagulant. Review of Systems Constitutional: Denies chills, Denies fever, Denies weakness Eyes: denies blurred vision Ears: bilateral: decreased hearing Ears, nose, mouth and throat: Denies dysphagia, Denies sinus pain, Denies sore throat Cardiovascular: Denies dyspnea on exertion, Denies edema, Denies high blood pressure, Denies shortness of breath Respiratory: Denies cough, Denies dyspnea, Denies wheezing Gastrointestinal: Reports abdominal pain, Reports bloating, Reports diarrhea, Reports melena Genitourinary: Denies dysuria, Denies polyuria Musculoskeletal: Denies frequent falls, Denies muscle weakness, Denies redness of joints Integumentary: Denies change in hair/nails, Denies lesions, Denies rash Neurological: Denies ataxia, Denies headaches, Denies syncope, Denies weakness Psychiatric: Denies anxiety, Denies depression Endocrine: Denies fatigue, Denies low blood sugars, Denies thyroid mass Hematologic/Lymphatic: Reports easy bleeding, Denies lymphadenopathy Allergic/Immunologic: Denies allergic rhinitis, Denies wheezing Past Medical History Past Medical History: Atrial Fibrillation, Asthma, Coronary Artery Disease (CAD), Heart Failure, COPD, CVA/TIA, GERD/Reflux, Hearing Disorder / Deafness, Hyperlipidemia, Hypertension, Pneumonia, Sleep Apnea/CPAP/BIPAP, Syncope Additional Past Medical History / Comment(s): Benign polyps removed, PVC's, cardiomyopathy, 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 Stovall, gout bilateral feet, occasional numbness L leg/L great toe, hx of PHIL with CPAP but no longer an issue since wt. 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 History of Any Multi-Drug Resistant Organisms: None Reported Past Surgical History: AICD, Cholecystectomy, Heart Catheterization, Heart Catheterization With Stent, Hernia Repair, Tonsillectomy Additional Past Surgical History / Comment(s): 07/24/14 EGD/colonoscopy with polypectomy/bx, 2005 AICD/2014 AICD changed to medtronic, 2002 Cardiac stent in [place], [address] [facility], upper teeth extracted for denture, L ear has tube, R ear plugged, cyst removed L eyelid, bilateral cataract removal, L ganglion cyst removal, L/R inguinal hernia repairs with mesh, penile implant. Past Anesthesia/Blood Transfusion Reactions: No Reported Reaction Date of Last Stent Placement:: 2002 Type of Cardiac Device: AICD Device Placement Date:: 2014 Past Psychological History: Anxiety, Depression Additional Psychological History / Comment(s): Pt lives alone in an apartment. He is independent. He does not own a vehicle so he uses [employer] to get to appointments. Smoking Status: Never smoker Past Alcohol Use History: Occasional Additional Past Alcohol Use History / Comment(s): Pt started smoking an occasional cigar about 1 1/2 yrs ago. Past Drug Use History: None Reported - Past Family History Father Family Medical History: Coronary Artery Disease (CAD), Pneumonia Additional Family Medical History / Comment(s): Father of pneumonia at the age of 82 yrs. Mother Family Medical History: Liver Disease, Renal Disease Additional Family Medical History / Comment(s): father passed after a bout with pneumonia Medications and Allergies Home Medications Medication Instructions Recorded Confirmed Type Furosemide [Lasix] 20 mg PO DAILY 04/01/14 05/29/21 History Mirtazapine 45 mg PO HS 04/01/14 05/29/21 History Omeprazole 40 mg PO AC-BRKFST 04/01/14 05/29/21 History Oxybutynin Chloride [Ditropan] 5 mg PO TID 04/01/14 05/29/21 History QUEtiapine [SEROquel] 200 mg PO BID 04/01/14 05/29/21 History Spironolactone [Aldactone] 25 mg PO DAILY 04/01/14 05/29/21 History Budesonide/Formoterol Fumarate 2 puff INHALATION RT-BID 07/20/14 05/29/21 History [Symbicort 160-4.5 Mcg Inhaler] Citalopram Hydrobromide [CeleXA] 10 mg PO DAILY 07/20/14 05/29/21 History Levocetirizine Dihydrochloride 5 mg PO DAILY 07/20/14 05/29/21 History Montelukast [Singulair] 10 mg PO HS 07/20/14 05/29/21 History Doxepin [SINEquan] 25 mg PO HS 01/17/16 05/29/21 History Apixaban [Eliquis] 5 mg PO BID 06/02/20 05/29/21 History Atorvastatin [Lipitor] 20 mg PO DAILY 06/02/20 05/29/21 History Aspirin 81 mg PO DAILY #30 chewable 06/04/20 05/29/21 Rx Nitroglycerin Sl Tabs [Nitrostat] 0.4 mg SL Q5M PRN 06/06/20 05/29/21 History Albuterol Inhaler [Ventolin Hfa 2 puff INHALATION RT-QID PRN 05/29/21 05/29/21 History Inhaler] Carvedilol [Coreg] 12.5 mg PO BID-W/MEALS 05/29/21 05/29/21 History Docusate [Colace] 100 mg PO DAILY 05/29/21 05/29/21 History Verapamil HCl [Verapamil Sr] 120 mg PO DAILY 05/29/21 05/29/21 History Allergies Allergy/AdvReac Type Severity Reaction Status Date / Time Barbiturates Allergy Anaphylaxis Verified 05/29/21 20:37 Physical Exam Vitals: Vital Signs Temp Pulse Pulse Resp BP BP Pulse Ox 05/30/21 11:36 98.3 F 56 L 20 114/71 94 L 05/30/21 09:28 73 178/103 05/30/21 08:27 63 05/30/21 08:18 60 05/30/21 04:23 97.9 F 55 L 18 154/86 98 05/30/21 01:20 165/75 05/29/21 23:45 159/84 05/29/21 22:32 98.1 F 61 18 170/80 98 05/29/21 22:30 18 05/29/21 21:03 73 16 131/98 98 05/29/21 17:12 60 14 144/87 98 Intake and Output 05/30/21 05/30/21 05/30/21 06:59 14:59 22:59 Intake Total 600 Output Total 500 Balance 100 Intake: Intake, IV Titration 600 Amount Sodium Chloride 0.9% 1, 600 000 ml @ 75 mls/hr IV . [id number] ONE Rx#:[id number] Output: Urine 500 Other: Voiding Method Toilet Bedside Commode Urinal - Constitutional General appearance: average body habitus, cooperative, no acute distress - EENT Eyes: EOMI ENT: hard of hearing, normal oropharynx - Respiratory Respiratory: bilateral: diminished - Cardiovascular Heart rate: 60 Rhythm: irregularly irregular radial pulse Peripheral Pulses: bilateral: Normal - Gastrointestinal General gastrointestinal: distended, normal bowel sounds, tenderness - Integumentary Integumentary: normal - Neurologic Neurologic: CNII-XII intact - Musculoskeletal Musculoskeletal: gait normal - Psychiatric Psychiatric: A&O x's 3, appropriate affect, intact judgment & insight Results CBC & Chem 7: 05/30/21 05:38 05/29/21 18:37 Labs: Abnormal Lab Results - Last 24 Hours (Table) 05/29/21 05/29/21 Range/Units 18:37 18:37 WBC 10.8 H (3.8-10.6) k/uL Neutrophils # 8.0 H (1.3-7.7) k/uL Sodium 135 L (137-145) mmol/L Glucose 106 H (74-99) mg/dL Total Bilirubin 1.5 H (0.2-1.3) mg/dL Thrombosis Risk Factor Assmnt - DVT/VTE Prophylaxis DVT/VTE Prophylaxis: Contraindicated - See note (GI bleed) - Choose All That Apply Any of the Below Risk Factors Present?: Yes Each Factor Represents 1 point: Abnormal pulmonary function (COPD), Obesity (BMI >25) Other Risk Factors: Yes Each Risk Factor Represents 2 Points: Age 61-74 years Other congenital or acquired thrombophilia - If yes, enter type in comment: No Thrombosis Risk Factor Assessment Total Risk Factor Score: 4 Thrombosis Risk Factor Assessment Level: Moderate Risk Assessment and Plan Assessment: Acute GI bleed, hemoglobin stable Atrial fibrillation with controlled ventricular response Ischemic cardiomyopathy status post AICD Coronary artery disease status post stenting Hypertension Hyperlipidemia Diverticulosis GERD Anxiety Hard of hearing Plan: Continue clear liquid diet, discontinue IV fluids Monitor hemoglobin daily, assess stool for blood Proceed with colonoscopy for evaluation of GI bleed monitor patient while off anticoagulant continue current cardiac medication, keeping heart rate controlled further recommendations to come based on patients clinical course Time with Patient: Greater than 30
[2021-05-30 20:35] LABS: Glucose,Whole Blood 132 mg/dL (75-99)
[2021-05-31] MEDS ORDERED: PEG 3350-NA SULF,BICARB,CL/KCL 4,000 ML BOTTLE PO ONE (08:00)
[2021-05-31] MEDS: ALBUTEROL NEBULIZED 2.5 MG/3 ML INHALATION PRN ×2 (08:06→19:58)
[2021-05-31] MEDS: SYMBICORT 160-4.5 MCG INHALER INHALATION SCH ×2 (08:07→19:59)
[2021-05-31 08:57] LABS: HCT 45.1 % (39.6-50.0); HGB 14.4 g/dL (13.0-17.0); MCH 28.7 pg (27.0-32.0); MCHC 31.9 g/dL (32.0-37.0); Mean Platelet Volume 10.5 fL (9.5-12.2); NRBC Per 100 WBC 0 /100 WBCS (0.0-0.0); Platelet Count 290 X 10*3/uL (140-440); RBC 5.01 X 10*6/uL (4.40-5.60); RDW 13.9 % (11.5-14.5); WBC 6.96 X 10*3/uL (4.50-10.00)
[2021-05-31 09:04] LABS: Magnesium 1.9 mg/dL (1.5-2.4)
[2021-05-31 09:12] LABS: African American GFR (CKD) 104.2 (60.0-200.0); Albumin 3.7 g/dL (3.8-4.9); Albumin/Globulin Ratio 1.48 (1.60-3.17); Anion Gap 12.3 mmol/L (10.00-18.00); BUN/Creat Ratio 5.75 Ratio (12.00-20.00); Blood Urea Nitrogen 4.6 mg/dL (9.0-27.0); Carbon Dioxide 24.7 mmol/L (20.0-27.5); Globulin 2.5 g/dL (1.6-3.3); Non-African American GFR(CKD) 89.9 (60.0-200.0); Potassium 4.3 mmol/L (3.5-5.5); Total Bilirubin 0.4 mg/dL (0.30-1.20); Total Protein 6.2 g/dL (6.2-8.2)
[2021-05-31] MEDS: ATORVASTATIN 20 MG TAB PO SCH (09:30)
[2021-05-31] MEDS: PANTOPRAZOLE 40 MG TABLET PO SCH (09:30)
[2021-05-31] MEDS: carvediloL 12.5 MG TAB PO SCH ×2 (09:30→18:11)
[2021-05-31] MEDS: CITALOPRAM HYDROBROMIDE 10 MG TAB PO SCH (09:30)
[2021-05-31] MEDS: DOCUSATE 100 MG CAP PO SCH (09:30)
[2021-05-31] MEDS: QUEtiapine 200 MG TAB PO SCH ×2 (09:31→21:46)
[2021-05-31] MEDS: ASPIRIN 81 MG PO SCH (09:31)
[2021-05-31] MEDS: OXYBUTYNIN CHLORIDE 5 MG TAB PO SCH ×3 (09:31→21:46)
[2021-05-31] MEDS: SPIRONOLACTONE 25 MG TAB PO SCH (09:31)
[2021-05-31] MEDS: LOSARTAN 50 MG TAB PO SCH (09:31)
[2021-05-31] MEDS: FUROSEMIDE 20 MG TAB PO SCH (09:31)
--- NOTE | 2021-05-31 09:58 | P.PN ---
Subjective Progress Note Date: 05/31/21 HISTORY OF PRESENT ILLNESS: This is a 71-year-old male with a past medical history significant for coronary artery disease with previous PCI, ischemic cardiomyopathy with AICD implan tation, hypertension, hyperlipidemia, and paroxysmal atrial fibrillation on Eliquis. Patient follows in the office with Dr. Monsalve. We have been asked to see the patient in consultation for atrial fibrillation. Patient examined at the bedside. Patient presented to the hospital with a chief complaint of bright red blood per rectum. Patient is prescribed Eliquis on an outpatient basis for his atrial fibrillation. Patient reports having 2 bowel movements since midnight with bright red blood. Patient's hemoglobin 15.0 on admission. Most recent hemoglobin 13.9. The patient has also been receiving IV fluids at 75 mL an hour. Patient denies any chest pain or pressure. He denies shortness of breath. His Eliquis has been placed on hold. * EKG not completed at the time of this dictation * Laboratory data: W BC 7.7. Hemoglobin 13.9. Platelet count 272. Sodium 135. Potassium 4.6. BUN 13. Creatinine 0.83. Magnesium 1.7. Troponin negative 1. * Current home cardiac medications include verapamil 120 mg daily, Aldactone 25 mg daily, Lasix 20 mg daily, carvedilol 12.5 mg twice a day, Lipitor 20 mg daily, aspirin 81 mg daily, and Eliquis 5 mg twice a day * Patient had an echocardiogram completed in the office on 05/18/2021 revealing ejection fraction 35-40%, global LV hypokinesis, mild aortic regurgitation, mild mitral regurgitation, [id number] tricuspid regurgitation, and mod erate pulmonary hypertension * Most recent cardiac catheterization was performed at [facility] in June 2017 revealing normal ejection fraction, 40% RCA stenosis proximal to the stented segment that was pain. Circumflex groove branch, nondominant vessel of the small caliber. LAD has minor irregularities. No significant disease. Advised medical therapy. 05/31/2021 Patient examined this morning at the beside. Patient denies chest pain or pressure. Denies SOB. Eliquis remains on hold. Hemoglobin today is 14.4. He is scheduled for endoscopy tomorrow with general surgery. PHYSICAL EXAM: VITAL SIGNS: Reviewed. GENERAL: Well-developed in no acute distress. HEENT: Head is normocephalic. Pupils are equal, round. Sclerae anicteric. Mucous membranes of the mouth are moist. Neck supple. No JVD or thyromegaly LUNGS: Respirations even and unlabored. Lungs essentially clear to auscultation bilaterally. HEART: Regular rate and rhythm. S1 and S2 heard. ABDOMEN: Soft. Nondistended. Nontender. EXTREMITIES: Normal range of motion. No clubbing or cyanosis. Peripheral pulses intact. No lower extremity edema NEUROLOGIC: Awake and alert. Oriented x 3. ASSESSMENT: Bright red blood per rectum, r/o GI bleed Paroxysmal atrial fibrillation Ischemic cardiomyopathy with AICD implantation Coronary artery disease with previous PCI Hypertension Hyperlipidemia PLAN: Patient scheduled for endoscopy tomorrow. Await findings Hold Eliquis. Resume when okay with general surgery We will sign off. Please reconsult if needed. Nurse practitioner note has been reviewed by physician. Signing provider agrees with the documented findings, assessment, and plan of care. Objective - Vital Signs Vital signs: Vital Signs Temp 97.3 F L 05/31/21 04:30 Pulse 67 05/31/21 08:18 Resp 16 05/31/21 04:30 BP 120/65 05/31/21 04:30 Pulse Ox 99 05/31/21 04:30 Intake & Output 05/30/21 05/31/21 05/31/21 18:59 06:59 18:59 Intake Total 900 Output Total 350 Balance 900 -350 Intake: Intake, IV Titration 900 Amount Sodium Chloride 0.9% 1, 900 000 ml @ 75 mls/hr IV . [id number] ONE Rx#:[id number] Output: Urine 350 Other: Voiding Method Toilet Bedside Commode Bedside Commode Urinal Urinal # Voids 3 # Bowel Movements 2 - Labs CBC & Chem 7: 05/31/21 05:59 05/31/21 05:59 Labs: Abnormal Lab Results - Last 24 Hours (Table) 05/30/21 05/31/21 05/31/21 Range/Units 20:33 05:59 05:59 MCHC 31.9 L (32.0-37.0) g/dL BUN 4.6 L (9.0-27.0) mg/dL BUN/Creatinine Ratio 5.75 L (12.00-20.00) Ratio POC Glucose (mg/dL) 132 H (75-99) mg/dL Albumin 3.7 L (3.8-4.9) g/dL Albumin/Globulin Ratio 1.48 L (1.60-3.17) g/dL
--- NOTE | 2021-05-31 13:05 | P.PN ---
Subjective Progress Note Date: 05/31/21 Principal diagnosis: GI bleed Patient is a pleasant 71-year-old male that presented to the emergency room with abdominal cramping and multiple episodes of bloody stool. Patient states this started after eating ravioli. Patient has a significant medical history that includes atrial fibrillation on eliquis, diverticulosis, coronary artery disease, heart failure, COPD, GERD, hypertension, hyperlipidemia. Surgical history includes cardiac stent, EGD/colonoscopy with polypectomy, and AICD placement. Hemoglobin on admission was 15.0. Cardiology and Gen. surgery was c onsulted. Eliquis and aspirin on hold. Hospitalist coverage 05/29/2021 05/30/2021 Patient was seen and examined at bedside. Patient was resting comfortably in bed in no acute distress. Patient reports continued diarrhea and abdominal bloating. General surgery is recommending colonoscopy on to assess cause of bleed. Patient will be on a clear liquid diet and begin bowel prep tomorrow. Patient will be monitored while being off anticoagulant. 05/31/2021 Patient was assessed at bedside. Patient was sitting up in bed in no acute distress. Patient reports feeling congested, coughing up phlegm. Mucinex was ordered. He also reports a decrease in bowel movements, but is having a lot of gas. Patient denies shortness of breath, chest pain, headache. Patient will begin bowel prep today for colonoscopy tomorrow. Continue monitoring for bleeding or symptoms of clotting. Objective - Vital Signs Vital signs: Vital Signs Temp 97.3 F L 05/31/21 04:30 Pulse 74 05/31/21 09:29 Resp 16 05/31/21 04:30 BP 149/85 05/31/21 09:29 Pulse Ox 99 05/31/21 04:30 Intake & Output 05/30/21 05/31/21 05/31/21 18:59 06:59 18:59 Intake Total 900 Output Total 350 Balance 900 -350 Intake: Intake, IV Titration 900 Amount Sodium Chloride 0.9% 1, 900 000 ml @ 75 mls/hr IV . [id number] ONE Rx#:[id number] Output: Urine 350 Other: Voiding Method Toilet Bedside Commode Bedside Commode Urinal Urinal # Voids 3 # Bowel Movements 2 - Constitutional General appearance: Present: average body habitus - EENT Eyes: Present: EOMI, PERRLA ENT: Present: hard of hearing, normal oropharynx Ears: bilateral: normal - Neck Neck: Present: normal ROM - Respiratory Respiratory: bilateral: CTA, diminished - Cardiovascular Heart rate: 60 Rhythm: irregularly irregular - Peripheral pulses radial pulse Peripheral Pulses: bilateral: Normal - Gastrointestinal General gastrointestinal: Present: normal bowel sounds, soft - Integumentary Integumentary: Present: normal - Neurologic Neurologic: Present: CNII-XII intact - Musculoskeletal Musculoskeletal: Present: gait normal - Psychiatric Psychiatric: Present: A&O x's 3, appropriate affect, intact judgment & insight - Allied health notes Allied health notes reviewed: nursing - Labs CBC & Chem 7: 05/31/21 05:59 05/31/21 05:59 Labs: Abnormal Lab Results - Last 24 Hours (Table) 05/30/21 05/31/21 05/31/21 Range/Units 20:33 05:59 05:59 MCHC 31.9 L (32.0-37.0) g/dL BUN 4.6 L (9.0-27.0) mg/dL BUN/Creatinine Ratio 5.75 L (12.00-20.00) Ratio POC Glucose (mg/dL) 132 H (75-99) mg/dL Albumin 3.7 L (3.8-4.9) g/dL Albumin/Globulin Ratio 1.48 L (1.60-3.17) g/dL Assessment and Plan Assessment: Acute GI bleed, hemoglobin stable Atrial fibrillation with controlled ventricular response Ischemic cardiomyopathy status post AICD Coronary artery disease status post stenting Hypertension Hyperlipidemia Diverticulosis GERD Anxiety Hard of hearing Plan: Continue clear liquid diet, discontinue IV fluids, continue lasix Monitor hemoglobin daily, assess stool for blood Proceed with colonoscopy for evaluation of GI bleed monitor patient while off anticoagulant continue current cardiac medication, keeping heart rate controlled further recommendations to come based on patients clinical course Time with Patient: Greater than 30
--- NOTE | 2021-05-31 14:16 | CDI ---
Documentation Clarification Form Date: 05/31/2021 01:59:22 PM From: Idalmis Bowman RN CCDS Admit Date: 05/30/2021 01:57:00 PM Patient Name: Rayray Stewart Visit Number: [id number] Discharge Date: ATTENTION: The Clinical Documentation Specialists (CDI) and [facility] Coding Staff appreciate your assistance in clarifying documentation. Please respond to the clarification below the line at the bottom and electronically sign. The CDI & [facility] Coding staff will review the response and follow-up if needed. Please note: Queries are made part of the Legal Health Record. If you have any questions, please contact the author of this message via ITS. Dr. Hudson Moran Your patient has the documented diagnosis of unspecified Heart Failure, 05/30, H&P. Additional information regarding the type, acuity of CHF is requested. History/Risk Factors:71-year-old male presents to the ED with abdominal cramping and multiple episodes of bloody stool. Medical History: COPD, Atrial Fib, Heart Failure, HTN and AICD. Clinical Indicators: VS/Pulse OX: B/P 144/87 HR 60, RR 14, SpO2 98% ra Echocardiogram Results 06/03: EF 30-35% Mild aortic regurgitation. Mild mitral regurgitation. Mild tricuspid regurgitation. Treatment: 05/30 to current Coreg 12.5mg PO BID; 05/30 to current Lasix 20mg PO Daily; 05/30 current Aldactone 25mg PO Daily. In your professional opinion, can you please clarify the acuity and type of Heart Failure if known? [ X] Chronic Systolic Heart Failure (reduced EF) (Template Last Revised: April 2020) MTDD
--- NOTE | 2021-05-31 15:37 | P.PN ---
Subjective Progress Note Date: 05/31/21 CHIEF COMPLAINT: GI bleed HISTORY OF PRESENT ILLNESS: Patient reports no further bleeding per rectum. He is scheduled for colonoscopy tomorrow. He is undergoing the GoLYTELY prep. Hemoglobin 13.9. Tolerate clear liquids. Abdominal pain is better. PHYSICAL EXAM: VITAL SIGNS: Reviewed. GENERAL: Well-developed in no acute distress. HEENT: No sclera icterus. Extraocular movements grossly intact. Moist buccal mucosa. Head is atraumatic, normocephalic. ABDOMEN: Soft. Nondistended. Nontender. NEUROLOGIC: Alert and oriented. Cranial nerves II through XII grossly intact. ASSESSMENT: 1. Acute GI bleed with bright red blood per rectum with diarrhea PLAN: -Patient scheduled for colonoscopy on , 06/01/[address] Meehan -GoLYTELY prep today -Nothing by mouth after midnight -Continue to hold Eliquis -Continue IV fluids -Continue to monitor for any signs or symptoms of bleeding -Continue to monitor hemoglobin Physician [employer] Specialist note has been reviewed by physician. Signing provider agrees with the documented findings, assessment, and plan of care. Objective - Vital Signs Vital signs: Vital Signs Temp 97.3 F L 05/31/21 13:06 Pulse 42 L 05/31/21 13:06 Resp 19 05/31/21 13:06 BP 143/76 05/31/21 13:06 Pulse Ox 99 05/31/21 13:06 Intake & Output 05/30/21 05/31/21 05/31/21 18:59 06:59 18:59 Intake Total 900 Output Total 350 Balance 900 -350 Intake: Intake, IV Titration 900 Amount Sodium Chloride 0.9% 1, 900 000 ml @ 75 mls/hr IV . [id number] ONE Rx#:[id number] Output: Urine 350 Other: Voiding Method Toilet Bedside Commode Bedside Commode Urinal Urinal # Voids 3 # Bowel Movements 2 - Labs CBC & Chem 7: 05/31/21 05:59 05/31/21 05:59 Labs: Abnormal Lab Results - Last 24 Hours (Table) 05/30/21 05/31/21 05/31/21 Range/Units 20:33 05:59 05:59 MCHC 31.9 L (32.0-37.0) g/dL BUN 4.6 L (9.0-27.0) mg/dL BUN/Creatinine Ratio 5.75 L (12.00-20.00) Ratio POC Glucose (mg/dL) 132 H (75-99) mg/dL Albumin 3.7 L (3.8-4.9) g/dL Albumin/Globulin Ratio 1.48 L (1.60-3.17) g/dL
[2021-05-31] MEDS: guaiFENesin 600 MG TABLET.ER PO SCH ×2 (15:49→21:46)
[2021-05-31] MEDS: MIRTAZAPINE 45 MG TABLET PO SCH (21:46)
[2021-05-31] MEDS: MONTELUKAST 10 MG TAB PO SCH (21:46)
[2021-05-31] MEDS: DOXEPIN 25 MG CAP PO SCH (21:46)
[2021-06-01 06:54] LABS: HGB 14.3 gm/dL (13.0-17.5); MCH 30.2 pg (25.0-35.0); MCHC 33.3 g/dL (31.0-37.0); MCV 90.9 fL (80.0-100.0); Platelet Count 271 k/uL (150-450); RBC 4.74 m/uL (4.30-5.90); RDW 13.7 % (11.5-15.5)
[2021-06-01 07:03] LABS: African American GFR (CKD) >90 (>60 ml/min/1.73 sqM); Anion Gap 2 mmol/L; Blood Urea Nitrogen 3 mg/dL (9-20); Calcium 8.6 mg/dL (8.4-10.2); Carbon Dioxide 27 mmol/L (22-30); Chloride 108 mmol/L (98-107); Glucose 84 mg/dL (74-99); Non-African American GFR(CKD) >90 (>60 ml/min/1.73 sqM); Potassium 3.5 mmol/L (3.5-5.1); Sodium 137 mmol/L (137-145)
[2021-06-01] MEDS: ALBUTEROL NEBULIZED 2.5 MG/3 ML INHALATION PRN ×2 (07:32→20:33)
[2021-06-01] MEDS: SYMBICORT 160-4.5 MCG INHALER INHALATION SCH ×2 (07:32→20:34)
[2021-06-01] MEDS ORDERED: POTASSIUM CHLORIDE ER 20 MEQ TAB.ER PO STA (08:28)
[2021-06-01] MEDS: SPIRONOLACTONE 25 MG TAB PO SCH (09:08)
[2021-06-01] MEDS: FUROSEMIDE 20 MG TAB PO SCH (09:08)
[2021-06-01] MEDS: carvediloL 12.5 MG TAB PO SCH ×2 (09:09→17:28)
[2021-06-01] MEDS: ASPIRIN 81 MG PO SCH (09:09)
[2021-06-01] MEDS: PANTOPRAZOLE 40 MG TABLET PO SCH (09:09)
[2021-06-01] MEDS: DOCUSATE 100 MG CAP PO SCH (09:09)
[2021-06-01] MEDS: LOSARTAN 50 MG TAB PO SCH (09:10)
[2021-06-01] MEDS: guaiFENesin 600 MG TABLET.ER PO SCH ×2 (09:10→21:30)
[2021-06-01] MEDS: CITALOPRAM HYDROBROMIDE 10 MG TAB PO SCH (09:10)
[2021-06-01] MEDS: OXYBUTYNIN CHLORIDE 5 MG TAB PO SCH ×3 (09:11→21:30)
[2021-06-01] MEDS: ATORVASTATIN 20 MG TAB PO SCH (09:11)
[2021-06-01] MEDS: QUEtiapine 200 MG TAB PO SCH ×2 (09:12→21:30)
[2021-06-01] MEDS ORDERED: PROPOFOL 10 MG/ML 20 ML VIAL IV ONE (11:33)
[2021-06-01] MEDS ORDERED: SODIUM CHLORIDE 0.9% 500 ML 500 ML IV ONE (11:35)
--- NOTE | 2021-06-01 11:49 | P.OP ---
Date of Procedure: 06/01/21 Preoperative Diagnosis: GI bleed Diarrhea Postoperative Diagnosis: Severe diverticulosis with possible diverticulitis Procedure(s) Performed: Colonoscopy Anesthesia: MAC Surgeon: Neo Meehan Pathology: other (Sigmoid colon biopsy) Condition: stable Disposition: PACU Description of Procedure: The patient's placed on the endoscopy table in the lateral position. He received IV sedation. Digital rectal exam performed which revealed external hemorrhoids. The possible colonoscope was then placed patient anus and into the colon. The sigmoid colon there was significant diverticular disease with tortuosity valve. The bowel appeared to be inflamed. There is no active bleeding. A biopsy of the sigmoid colon was performed. Scope was then withdrawn. There was thought that there be risk of colonic perforation if the scope was advanced. The scope was withdrawn. The rectum appeared normal. Sc ope was withdrawn for patient. Presumed patient's bleeding from diverticular disease
--- NOTE | 2021-06-01 12:05 | P.PN ---
Subjective Progress Note Date: 06/01/21 Principal diagnosis: GI bleed Patient is a pleasant 71-year-old male that presented to the emergency room with abdominal cramping and multiple episodes of bloody stool. Patient states this started after eating ravioli. Patient has a significant medical history that includes atrial fibrillation on eliquis, diverticulosis, coronary artery disease, heart failure, COPD, GERD, hypertension, hyperlipidemia. Surgical history includes cardiac stent, EGD/colonoscopy with polypectomy, and AICD placement. Hemoglobin on admission was 15.0. Cardiology and Gen. surgery was c onsulted. Eliquis and aspirin on hold. Hospitalist coverage 05/29/2021 05/30/2021 Patient was seen and examined at bedside. Patient was resting comfortably in bed in no acute distress. Patient reports continued diarrhea and abdominal bloating. General surgery is recommending colonoscopy on to assess cause of bleed. Patient will be on a clear liquid diet and begin bowel prep tomorrow. Patient will be monitored while being off anticoagulant. 05/31/2021 Patient was assessed at bedside. Patient was sitting up in bed in no acute distress. Patient reports feeling congested, coughing up phlegm. Mucinex was ordered. He also reports a decrease in bowel movements, but is having a lot of gas. Patient denies shortness of breath, chest pain, headache. Patient will begin bowel prep today for colonoscopy tomorrow. Continue monitoring for bleeding or symptoms of clotting. 06/01/2021 Patient is seen and assessed at bedside. Patient sitting up in bed, continues to report excess gas. He did complete bowel prep for colonoscopy today. Patient denies chest pain, palpitations, headache, shortness of breath. Did have some right chest tightness, states it went away when he stretched. Patient is waiting to go down to or. Awaiting colonoscopy results. Objective - Vital Signs Vital signs: Vital Signs Temp 98.3 F 06/01/21 11:18 Pulse 71 06/01/21 11:18 Resp 16 06/01/21 11:18 BP 142/99 06/01/21 11:18 Pulse Ox 98 06/01/21 11:18 Intake & Output 05/31/21 06/01/21 06/01/21 18:59 06:59 18:59 Intake Total 200 Balance 200 Intake: IV 200 Other: Voiding Method Bedside Commode Urinal # Voids 3 # Bowel Movements 15 4 - Constitutional General appearance: Present: average body habitus, no acute distress - EENT Eyes: Present: EOMI, PERRLA ENT: Present: normal oropharynx Ears: bilateral: normal - Neck Neck: Present: normal ROM - Respiratory Respiratory: bilateral: CTA - Cardiovascular Heart rate: 60 Rhythm: regular Heart sounds: normal: S1, S2 - Peripheral pulses radial pulse Peripheral Pulses: bilateral: Normal - Gastrointestinal General gastrointestinal: Present: distended, normal bowel sounds, soft - Integumentary Integumentary: Present: normal, normal turgor - Neurologic Neurologic: Present: CNII-XII intact - Musculoskeletal Musculoskeletal: Present: gait normal - Psychiatric Psychiatric: Present: A&O x's 3, appropriate affect, intact judgment & insight - Allied health notes Allied health notes reviewed: nursing - Labs CBC & Chem 7: 06/01/21 06:28 06/01/21 06:28 Labs: Abnormal Lab Results - Last 24 Hours (Table) 06/01/21 Range/Units 06:28 Chloride 108 H (98-107) mmol/L BUN 3 L (9-20) mg/dL Assessment and Plan Assessment: Acute GI bleed, hemoglobin stable Atrial fibrillation with controlled ventricular response Ischemic cardiomyopathy status post AICD Coronary artery disease status post stenting Hypertension Hyperlipidemia Diverticulosis GERD Anxiety Hard of hearing Plan: Continue clear liquid diet, discontinue IV fluids, continue lasix Monitor hemoglobin daily, stable at 14.3 Proceed with colonoscopy today for evaluation of GI bleed monitor patient while off anticoagulant continue current cardiac medication, keeping heart rate controlled further recommendations to come based on patients clinical course Time with Patient: Greater than 30
[2021-06-01] MEDS: DOXEPIN 25 MG CAP PO SCH (21:30)
[2021-06-01] MEDS: MIRTAZAPINE 45 MG TABLET PO SCH (21:30)
[2021-06-01] MEDS: MONTELUKAST 10 MG TAB PO SCH (21:30)
[2021-06-02] MEDS: SYMBICORT 160-4.5 MCG INHALER INHALATION SCH ×2 (07:29→20:28)
[2021-06-02] MEDS: ALBUTEROL NEBULIZED 2.5 MG/3 ML INHALATION PRN ×2 (07:29→20:28)
[2021-06-02] MEDS: LOSARTAN 50 MG TAB PO SCH (08:44)
[2021-06-02] MEDS: CITALOPRAM HYDROBROMIDE 10 MG TAB PO SCH (08:44)
[2021-06-02] MEDS: carvediloL 12.5 MG TAB PO SCH ×2 (08:45→17:13)
[2021-06-02] MEDS: ATORVASTATIN 20 MG TAB PO SCH (08:45)
[2021-06-02] MEDS: QUEtiapine 200 MG TAB PO SCH ×2 (08:45→21:50)
[2021-06-02] MEDS: ASPIRIN 81 MG PO SCH (08:45)
[2021-06-02] MEDS: DOCUSATE 100 MG CAP PO SCH (08:45)
[2021-06-02] MEDS: PANTOPRAZOLE 40 MG TABLET PO SCH ×2 (08:45→17:13)
[2021-06-02] MEDS: guaiFENesin 600 MG TABLET.ER PO SCH ×2 (08:45→21:50)
[2021-06-02] MEDS: OXYBUTYNIN CHLORIDE 5 MG TAB PO SCH ×3 (08:45→21:50)
[2021-06-02] MEDS: SPIRONOLACTONE 25 MG TAB PO SCH (08:45)
[2021-06-02] MEDS: FUROSEMIDE 20 MG TAB PO SCH (08:45)
[2021-06-02 10:37] LABS: Basophils # (A) 0.1 k/uL (0-0.2); Basophils % (A) 1 %; Eosinophils # (A) 0.2 k/uL (0-0.7); Eosinophils % (A) 3 %; HCT 45.7 % (39.0-53.0); HGB 14.5 gm/dL (13.0-17.5); Lymphocytes # (A) 2.7 k/uL (1.0-4.8); Lymphocytes % (A) 33 %; MCH 29.3 pg (25.0-35.0); MCHC 31.6 g/dL (31.0-37.0); MCV 92.5 fL (80.0-100.0); Mean Platelet Volume 8.2; Monocytes # (A) 0.6 k/uL (0-1.0); Monocytes % (A) 7 %; Neutrophils # (A) 4.6 k/uL (1.3-7.7); Neutrophils % (A) 56 %; Platelet Count 305 k/uL (150-450); RBC 4.95 m/uL (4.30-5.90); RDW 13.6 % (11.5-15.5); WBC 8.2 k/uL (3.8-10.6)
[2021-06-02] MEDS ORDERED: PIPERACILLIN-TAZOBACTAM 3.375 GM in SODIUM CHLORIDE 0.9% 100 ML IVPB SCH (11:30)
[2021-06-02] MEDS: BENZOCAINE/MENTHOL LOZENG 1 EACH LOZENGE MUCOUS MEM PRN ×3 (12:52→21:53)
[2021-06-02] MEDS: IOPAMIDOL CONTRAST (ORAL USE) VIAL PO PRN ×2 (13:07→14:05)
--- NOTE | 2021-06-02 13:13 | XR ---
EXAMINATION TYPE: XR chest 1V portable DATE OF EXAM: 06/02/2021 HISTORY: Shortness of breath. COMPARISON: 04/06/2021 TECHNIQUE: Single view of the chest is submitted. FINDINGS: Demonstrated are scattered senescent parenchymal change. Basilar increased density may reflect atelectasis or developing infiltrates. The heart is stable. Hilar and mediastinal structures are within normal limits. Degenerative changes are seen of the dorsal spine. IMPRESSION: 1. Basilar increased density may reflect atelectasis or developing infiltrates.
--- NOTE | 2021-06-02 13:26 | P.PN ---
Subjective Progress Note Date: 06/02/21 CHIEF COMPLAINT: GI bleed HISTORY OF PRESENT ILLNESS: Patient is status post colonoscopy results revealing severe diverticulosis with mild diverticulitis. Presumed patient's bleeding is from diverticular disease. Patient is complaining of left lower quadrant and right lower quadrant abdominal pain. He denies any nausea or vomiting. He reports no further blood in his stools. He is afebrile. WBC is 8.0 hemoglobin 14.3. Medicine service has ordered a computed tomography scan abdomen and pelvis. Patient seen and examined with Dr. Meehan PHYSICAL EXAM: VITAL SIGNS: Reviewed. GENERAL: Well-developed in no acute distress. HEENT: No sclera icterus. Extraocular movements grossly intact. Moist buccal mucosa. Head is atraumatic, normocephalic. ABDOMEN: Soft. Mildly distended with left lower quadrant and right lower quadrant tenderness NEUROLOGIC: Alert and oriented. Cranial nerves II through XII grossly intact. ASSESSMENT: 1. Acute GI bleed status post colonoscopy showing evidence of diverticulosis with mild diverticulitis. GI bleed likely secondary to diverticular bleed 2. Mild diverticulitis PLAN: -Start patient on Zosyn for his mild diverticulitis -Downgrade diet to full liquids until his pain improves -Continue to hold Eliquis -Continue to monitor for any signs or symptoms of bleeding -Repeat labs in a.m. Physician Physician President note has been reviewed by physician. Signing provider agrees with the documented findings, assessment, and plan of care. Objective - Vital Signs Vital signs: Vital Signs Temp 97.5 F L 06/02/21 11:20 Pulse 73 06/02/21 11:20 Resp 18 06/02/21 11:20 BP 138/79 06/02/21 11:20 Pulse Ox 97 06/02/21 11:20 Intake & Output 06/01/21 06/02/21 06/02/21 18:59 06:59 18:59 Intake Total 200 540 Output Total 400 Balance 200 140 Intake: IV 200 Oral 540 Output: Urine 400 Other: Voiding Method Toilet Bedside Commode Bedside Commode Urinal Urinal # Voids 2 # Bowel Movements 1 4 - Labs CBC & Chem 7: 06/02/21 09:51 06/01/21 06:28
--- NOTE | 2021-06-02 14:10 | P.PN ---
Subjective Progress Note Date: 06/02/21 GI bleed Patient is a pleasant 71-year-old male that presented to the emergency room with abdominal cramping and multiple episodes of bloody stool. Patient states this started after eating ravioli. Patient has a significant medical history that includes atrial fibrillation on eliquis, diverticulosis, coronary artery disease, heart failure, COPD, GERD, hypertension, hyperlipidemia. Surgical h istory includes cardiac stent, EGD/colonoscopy with polypectomy, and AICD placement. Hemoglobin on admission was 15.0. Cardiology and Gen. surgery was consulted. Eliquis and aspirin on hold. Hospitalist coverage 05/29/2021 05/30/2021 Patient was seen and examined at bedside. Patient was resting comfortably in bed in no acute distress. Patient reports continued diarrhea and abdominal bloating. General surgery is recommending colonoscopy on to assess cause of bleed. Patient will be on a clear liquid diet and begin bowel prep tomorrow. Patient will be monitored while being off anticoagulant. 05/31/2021 Patient was assessed at bedside. Patient was sitting up in bed in no acute distress. Patient reports feeling congested, coughing up phlegm. Mucinex was ordered. He also reports a decrease in bowel movements, but is having a lot of gas. Patient denies shortness of breath, chest pain, headache. Patient will begin bowel prep today for colonoscopy tomorrow. Continue monitoring for bleeding or symptoms of clotting. 06/01/2021 Patient is seen and assessed at bedside. Patient sitting up in bed, continues to report excess gas. He did complete bowel prep for colonoscopy today. Patient denies chest pain, palpitations, headache, shortness of breath. Did have some right chest tightness, states it went away when he stretched. Patient is waiting to go down to or. Awaiting colonoscopy results. Currently covering for Dr. Moran 06/02/2021 Patient is seen and evaluated this morning status post colonoscopy with Dr. Meehan which showed mild diverticulitis with evidence of diverticulosis and diverticular bleed. Anticoagulant currently on hold and will continue to monitor hemoglobin closely. Multiple been is stable at 14.5, patient is afebrile and white blood count is 8.2. Patient continues with abdominal pain on the left and right lower quadrants and reports to minimal gas. Patient states he has not had a bowel movement yet. No active bleeding noted at this time. Patient was resumed on regular diet although with continued pain recommend decreasing the diet back down to clear or full liquids. Surgery is following. Patient denies any chest pain or shortness of breath. Patient is afebrile. Review of systems: Constitutional: No reports of fatigue, fever, or chills Cardiovascular: No reports of chest pain or palpitations Respiratory: No reports of shortness of breath or cough GI: No reports of nausea, vomiting, reports passing minimal gas, and reports right and left side mid abdominal pain : No reports of dysuria or retention Neurovascular: No reports of weakness or numbness All medications have been reviewed Active Medications Albuterol Sulfate (Albuterol Nebulized 2.5 Mg/3 Ml) 2.5 mg INHALATION RT-QID PRN PRN Reason: Shortness Of Breath Last Admin: 06/02/21 07:29 Dose: 2.5 mg Documented by: Aspirin (Aspirin 81 Mg) 81 mg PO DAILY [facility] Last Admin: 06/02/21 08:45 Dose: 81 mg Documented by: Atorvastatin Calcium (Atorvastatin 20 Mg Tab) 20 mg PO DAILY [facility] Last Admin: 06/02/21 08:45 Dose: 20 mg Documented by: Benzocaine/Menthol (Benzocaine/Menthol Lozeng 1 Each Lozenge) 1 each MUCOUS MEM Q4HR PRN PRN Reason: Sore Throat Last Admin: 06/02/21 12:52 Dose: 1 each Documented by: Budesonide/Formoterol Fumarate (Symbicort 160-4.5 Mcg Inhaler) 2 puff INHALATION RT-BID [facility] Last Admin: 06/02/21 07:29 Dose: 2 puff Documented by: Carvedilol (Carvedilol 12.5 Mg Tab) 12.5 mg PO BID-W/MEALS [facility] Last Admin: 06/02/21 08:45 Dose: 12.5 mg Documented by: Citalopram Hydrobromide (Citalopram Hydrobromide 10 Mg Tab) 10 mg PO DAILY [facility] Last Admin: 06/02/21 08:44 Dose: 10 mg Documented by: Docusate Sodium (Docusate 100 Mg Cap) 100 mg PO DAILY [facility] Last Admin: 06/02/21 08:45 Dose: 100 mg Documented by: Doxepin HCl (Doxepin 25 Mg Cap) 25 mg PO [facility] Last Admin: 06/01/21 21:30 Dose: 25 mg Documented by: Furosemide (Furosemide 20 Mg Tab) 20 mg PO DAILY [facility] Last Admin: 06/02/21 08:45 Dose: 20 mg Documented by: Guaifenesin (Guaifenesin 600 Mg Tablet.Er) 1,200 mg PO Q12HR [facility] Last Admin: 06/02/21 08:45 Dose: 1,200 mg Documented by: Piperacillin Sod/Tazobactam (Sod 3.375 gm/ Sodium Chloride) 100 mls @ 25 mls/hr IVPB Q8HR [facility]; Protocol Last Admin: 06/02/21 12:53 Dose: 25 mls/hr Documented by: Iopamidol (Iopamidol Contrast (Oral Use) Vial) 30 ml PO Q60M PRN PRN Reason: CT Scan Stop: 06/03/21 12:56 Last Admin: 06/02/21 13:07 Dose: 30 ml Documented by: Losartan Potassium (Losartan 50 Mg Tab) 50 mg PO DAILY [facility] Last Admin: 06/02/21 08:44 Dose: 50 mg Documented by: Mirtazapine (Mirtazapine 45 Mg Tablet) 45 mg PO HS [facility] Last Admin: 06/01/21 21:30 Dose: 45 mg Documented by: Montelukast Sodium (Montelukast 10 Mg Tab) 10 mg PO [facility] Last Admin: 06/01/21 21:30 Dose: 10 mg Documented by: Nitroglycerin (Nitroglycerin Sl Tabs 0.4 Mg Tab) 0.4 mg SUBLINGUAL Q5M PRN PRN Reason: Chest Pain Oxybutynin Chloride (Oxybutynin Chloride 5 Mg Tab) 5 mg PO TID [facility] Last Admin: 06/02/21 08:45 Dose: 5 mg Documented by: Pantoprazole Sodium (Pantoprazole 40 Mg Tablet) 40 mg PO AC-BID [facility] Quetiapine Fumarate (Quetiapine 200 Mg Tab) 200 mg PO BID [facility] Last Admin: 06/02/21 08:45 Dose: 200 mg Documented by: Spironolactone (Spironolactone 25 Mg Tab) 25 mg PO DAILY [facility] Last Admin: 06/02/21 08:45 Dose: 25 mg Documented by: Physical Examination: Gen: This is a 71-year-old male, awake, alert and oriented 3, well-developed, well-nourished. HEENT: Head is atraumatic, normocephalic. Pupils equal, round. Sclerae is anicteric. NECK: Supple. No JVD. No lymphadenopathy. No thyromegaly. LUNGS: Diminished breath sounds bilaterally with no wheezing or rhonchi noted. No intercostal retractions. HEART: S1, S2 are muffled. ABDOMEN: Soft. Tenderness noted of the left and right lateral sides on palpation. Sluggish Bowel sounds are present. No masses. No tenderness. EXTREMITIES: No pedal edema. No calf tenderness. NEUROLOGICAL: Patient is awake, alert and oriented x3. Cranial nerves 2 through 12 are grossly intact. Assessment: Acute GI bleed possibly secondary to diverticular bleed Diverticulosis with mild diverticulitis as noted on colonoscopy Atrial fibrillation with controlled ventricular response Ischemic cardiomyopathy status post AICD Coronary artery disease status post stenting Hypertension Hyperlipidemia Diverticulosis GERD Anxiety Hard of hearing GI prophylaxis DVT prophylaxis Full code Plan: Recommend continue with current medications and management. Appropriate home medications have been resumed. Recommend to continue holding Eliquis given his recent GI bleed. Patient was evaluated and being followed by general surgery and underwent colonoscopy yesterday showing evidence of diverticulosis with mild diverticulitis in the GI bleed being likely secondary to diverticular bleed. Patient started on diet although continues with abdominal pain and recommend decreasing the diet back down to full liquids. Chest x-ray and CT abdomen ordered and pending. Also ordered ESR and ERP. Patient being started on IV Zosyn and will continue. Recommend repeat labs in the morning. Patient reports the passing minimal gas and no bowel movement as of yet. Patient is urinating with no difficulties. Due to multiple complex medical issues, prognosis is guarded. The impression and plan of care has been dictated by Niurka Johnston nurse practitioner as directed. MD Beny I have performed a history and examination and MDM of this patient, discussed the same with the dictator, and agree with the dictator's assessment and plan as written ,documented as a scribe. Based on total visit time, I have performed more than 50% of the visit. Total number of minutes spent on this visit, 20 minutes. Any additional findings or plans will be noted. Objective - Vital Signs Vital signs: Vital Signs Temp 97.5 F L 06/02/21 04:25 Pulse 64 06/02/21 07:46 Resp 18 06/02/21 04:25 BP 160/80 06/02/21 04:25 Pulse Ox 98 06/02/21 04:25 Intake & Output 06/01/21 06/02/21 06/02/21 18:59 06:59 18:59 Intake Total 200 540 Output Total 400 Balance 200 140 Intake: IV 200 Oral 540 Output: Urine 400 Other: Voiding Method Toilet Bedside Commode Bedside Commode Urinal Urinal # Voids 2 # Bowel Movements 1 - Labs CBC & Chem 7: 06/02/21 09:51 06/01/21 06:28
--- NOTE | 2021-06-02 15:40 | CT ---
EXAMINATION TYPE: CT abdomen pelvis wo con DATE OF EXAM: 06/02/2021 COMPARISON: No previous CT scan is available for comparison HISTORY: right side bad pian and swelling, h/o diverticulitis CT DLP: 1052.8 mGycm Automated exposure control for dose reduction was used. TECHNIQUE: Helical acquisition of images was performed from the lung bases through the pelvis. FINDINGS: LUNG BASES: Small bilateral pleural effusions and subsegmental basal pulmonary atelectasis. Cardiomeg huan with coronary arterial calcifications. LIVER/GB: No definite hepatic focal lesion. Previous cholecystectomy. PANCREAS: No significant abnormality is seen. SPLEEN: No significant abnormality is seen. ADRENALS: No significant abnormality is seen. KIDNEYS: Bilateral perinephric fat stranding, nonspecific. Left upper pole renal cyst without suspici ous feature measuring up to 16mm. Unremarkable kidneys otherwise. FREE AIR: No free air is visualized RETROPERITONEAL ADENOPATHY: None visualized REPRODUCTIVE ORGANS: Slightly prominent prostate protruding into and elevating the urinary bladder ba se. Please correlate with PSA level. Markedly distended urinary bladder, urinary retention cannot be excluded. Penile prosthesis with a reservoir is seen at the anterior inferior aspect of the urinary b ladder wall. PELVIC ADENOPATHY: None visualized. OSSEOUS STRUCTURES: Degenerative changes at L5-S1 level. No aggressive bone lesion. BOWEL: Unremarkable stomach, duodenum and small bowel. Colonic diverticulosis without evidence of ac [place] diverticulitis. Normal appendix. OTHER: Scattered arterial atherosclerotic calcifications. No sizable ascites. Fat-containing umbilica l hernia. Right-sided gynecomastia. IMPRESSION: 1. No evidence of acute diverticulitis. No definite acute small or large bowel abnormality identified . 2. Markedly distended urinary bladder, please correlate clinically for urine attention. Other finding s as described above.
[2021-06-02] MEDS: PIPERACILLIN-TAZOBACTAM 3.375 GM in SODIUM CHLORIDE 0.9% 100 ML IVPB SCH (21:49)
[2021-06-02] MEDS: MIRTAZAPINE 45 MG TABLET PO SCH (21:49)
[2021-06-02] MEDS: DOXEPIN 25 MG CAP PO SCH (21:50)
[2021-06-02] MEDS: MONTELUKAST 10 MG TAB PO SCH (21:50)
[2021-06-03] MEDS: PIPERACILLIN-TAZOBACTAM 3.375 GM in SODIUM CHLORIDE 0.9% 100 ML IVPB SCH ×3 (03:26→20:22)
[2021-06-03 07:30] LABS: Basophils % (A) 0 %; Eosinophils # (A) 0.3 k/uL (0-0.7); Eosinophils % (A) 4 %; HCT 43.8 % (39.0-53.0); HGB 14.1 gm/dL (13.0-17.5); Lymphocytes % (A) 43 %; MCH 29.3 pg (25.0-35.0); MCHC 32.1 g/dL (31.0-37.0); MCV 91.4 fL (80.0-100.0); Monocytes # (A) 0.5 k/uL (0-1.0); Monocytes % (A) 7 %; Neutrophils # (A) 3.1 k/uL (1.3-7.7); Neutrophils % (A) 43 %; Platelet Count 316 k/uL (150-450); RBC 4.79 m/uL (4.30-5.90); RDW 14.1 % (11.5-15.5); WBC 7.1 k/uL (3.8-10.6)
[2021-06-03 07:37] LABS: African American GFR (CKD) >90 (>60 ml/min/1.73 sqM); Anion Gap 3 mmol/L; Blood Urea Nitrogen 6 mg/dL (9-20); Calcium 9.2 mg/dL (8.4-10.2); Carbon Dioxide 27 mmol/L (22-30); Chloride 107 mmol/L (98-107); Glucose 93 mg/dL (74-99); Non-African American GFR(CKD) 86 (>60 ml/min/1.73 sqM); Potassium 4.2 mmol/L (3.5-5.1); Sodium 137 mmol/L (137-145)
[2021-06-03] MEDS: ASPIRIN 81 MG PO SCH (08:30)
[2021-06-03] MEDS: FUROSEMIDE 20 MG TAB PO SCH (08:30)
[2021-06-03] MEDS: DOCUSATE 100 MG CAP PO SCH (08:30)
[2021-06-03] MEDS: ATORVASTATIN 20 MG TAB PO SCH (08:30)
[2021-06-03] MEDS: CITALOPRAM HYDROBROMIDE 10 MG TAB PO SCH (08:30)
[2021-06-03] MEDS: guaiFENesin 600 MG TABLET.ER PO SCH ×2 (08:30→20:51)
[2021-06-03] MEDS: carvediloL 12.5 MG TAB PO SCH ×2 (08:30→17:08)
[2021-06-03] MEDS: SPIRONOLACTONE 25 MG TAB PO SCH (08:31)
[2021-06-03] MEDS: QUEtiapine 200 MG TAB PO SCH ×2 (08:31→20:51)
[2021-06-03] MEDS: PANTOPRAZOLE 40 MG TABLET PO SCH ×2 (08:31→17:08)
[2021-06-03] MEDS: OXYBUTYNIN CHLORIDE 5 MG TAB PO SCH ×3 (08:31→20:51)
[2021-06-03] MEDS: LOSARTAN 50 MG TAB PO SCH (08:31)
[2021-06-03] MEDS: BENZOCAINE/MENTHOL LOZENG 1 EACH LOZENGE MUCOUS MEM PRN ×2 (08:35→19:18)
[2021-06-03] MEDS: ALBUTEROL NEBULIZED 2.5 MG/3 ML INHALATION PRN ×2 (08:38→21:12)
[2021-06-03] MEDS: SYMBICORT 160-4.5 MCG INHALER INHALATION SCH ×2 (08:38→21:12)
--- NOTE | 2021-06-03 10:26 | P.PN ---
Subjective Progress Note Date: 06/03/21 Principal diagnosis: GI bleeding Patient seems to be doing well today. No seen abdominal pain. No bloody stools. CAT scan yesterday shows a large bladder but no evidence of div erticulitis. Colon biopsy shows mild inflammation. Labs normal. Objective - Vital Signs Vital signs: Vital Signs Temp 98.4 F 06/03/21 05:03 Pulse 67 06/03/21 08:50 Resp 16 06/03/21 05:03 BP 146/67 06/03/21 05:03 Pulse Ox 96 06/02/21 21:00 Intake & Output 06/02/21 06/03/21 06/03/21 18:59 06:59 18:59 Intake Total 100 100 Balance 100 100 Weight 102 kg Intake: Intake, IV Titration 100 100 Amount Piperacillin-Tazobactam 3 100 100 .375 gm In Sodium Chloride 0.9% 100 ml @ 25 mls/hr IVPB Q8H [facility] Rx#: [id number] Other: Voiding Method Bedside Commode Bedside Commode Bedside Commode Urinal Urinal Urinal # Voids 4 2 # Bowel Movements 1 1 - Exam Abdomen: Soft, nontender, nondistended - Labs CBC & Chem 7: 06/03/21 06:42 06/03/21 06:42 Labs: Abnormal Lab Results - Last 24 Hours (Table) 06/02/21 06/02/21 06/03/21 Range/Units 09:51 09:51 06:42 ESR 20 H (0-15) mm/hr BUN 6 L (9-20) mg/dL C-Reactive Protein 1.0 H (<1.0) mg/dL Assessment and Plan (1) GI bleed Narrative/Plan: 71-year-old male admitted with rectal bleeding. Colonoscopy shows diverticulosis. CAT scan shows no evidence of diverticulitis. Patient was complaining of lower abdominal pain and this may be related to the bladder distention seen on CAT scan. Continue advancing diet as tolerated. No surgical plans. We'll sign off. Please call with any further issues. Current Visit: Yes Status: Acute Code(s): K92.2 - GASTROINTESTINAL HEMORRHAGE, UNSPECIFIED SNOMED Code(s): 92017545
[2021-06-03 12:30] LABS: Appearance,Urine Clear (Clear); Bilirubin,Urine Negative (Negative); Blood,Urine Negative (Negative); Color,Urine Light Yellow; Glucose,Urine (UA) Negative (Negative); Ketones,Urine Negative (Negative); Leukocyte Esterase,Urine Negative (Negative); Nitrite,Urine Negative (Negative); Protein,Urine Negative (Negative); Specific Gravity,Urine 1.007 (1.001-1.035); Urobilinogen,Urine <2.0 mg/dL (<2.0)
--- NOTE | 2021-06-03 19:22 | PN ---
PROGRESS NOTE DATE OF SERVICE: 06/03/2021 This 71-year-old gentleman who was admitted with acute GI bleed also had features of diverticulitis clinically. The patient also had significant bladder distention. No chest pain. No palpitations. The patient is on empiric antibiotics. PHYSICAL EXAMINATION: Pulse is 59, blood pressure ( ), respiration 18. CHEST: Clear to auscultation. CARDIOVASCULAR SYSTEM: S1/S2 normal. ABDOMEN: Soft. Mild diffuse tenderness present, slightly better compared to yesterday. No guarding. No rigidity. No mass palpable. LEGS: No edema. No swelling. LABS: CBC within normal limits. ASSESSMENT: 1. Acute gastrointestinal bleed possibly secondary to acute diverticular bleed. 2. Diverticulosis and mild diverticulitis. 3. Atrial fibrillation with controlled ventricular response. 4. Ischemic cardiomyopathy status post AICD. 5. Coronary artery disease, stenting. 6. Hypertension. 7. Hyperlipidemia. 8. Diverticulosis. 9. Gastroesophageal reflux disease. 10.Anxiety. RECOMMENDATIONS AND DISCUSSION: I recommend to continue current management and symptomatic treatment. Otherwise at this time I recommend continue with IV antibiotics. Closely follow. Guarded prognosis. Further recommendations to follow. MMODL / IJN: [id number] /
[2021-06-03] MEDS: DOXEPIN 25 MG CAP PO SCH (20:51)
[2021-06-03] MEDS: MIRTAZAPINE 45 MG TABLET PO SCH (20:51)
[2021-06-03] MEDS: MONTELUKAST 10 MG TAB PO SCH (20:51)
[2021-06-04] MEDS: PIPERACILLIN-TAZOBACTAM 3.375 GM in SODIUM CHLORIDE 0.9% 100 ML IVPB SCH ×3 (04:45→22:31)
[2021-06-04] MEDS: BENZOCAINE/MENTHOL LOZENG 1 EACH LOZENGE MUCOUS MEM PRN ×3 (04:48→22:38)
[2021-06-04] MEDS: ALBUTEROL NEBULIZED 2.5 MG/3 ML INHALATION PRN ×2 (07:56→20:42)
[2021-06-04] MEDS: SYMBICORT 160-4.5 MCG INHALER INHALATION SCH ×2 (07:56→20:42)
[2021-06-04] MEDS: ASPIRIN 81 MG PO SCH (08:33)
[2021-06-04] MEDS: guaiFENesin 600 MG TABLET.ER PO SCH ×2 (08:33→22:35)
[2021-06-04] MEDS: DOCUSATE 100 MG CAP PO SCH (08:34)
[2021-06-04] MEDS: ATORVASTATIN 20 MG TAB PO SCH (08:34)
[2021-06-04] MEDS: OXYBUTYNIN CHLORIDE 5 MG TAB PO SCH ×3 (08:34→22:36)
[2021-06-04] MEDS: QUEtiapine 200 MG TAB PO SCH ×2 (08:34→22:36)
[2021-06-04] MEDS: CITALOPRAM HYDROBROMIDE 10 MG TAB PO SCH (08:34)
[2021-06-04] MEDS: PANTOPRAZOLE 40 MG TABLET PO SCH ×2 (08:34→17:31)
[2021-06-04] MEDS: LOSARTAN 50 MG TAB PO SCH (08:35)
[2021-06-04] MEDS: SPIRONOLACTONE 25 MG TAB PO SCH (08:35)
[2021-06-04] MEDS: FUROSEMIDE 20 MG TAB PO SCH (08:35)
[2021-06-04] MEDS: carvediloL 12.5 MG TAB PO SCH ×2 (08:36→17:31)
[2021-06-04] MEDS: TAMSULOSIN 0.4 MG CAP.ER.24H PO SCH (11:01)
[2021-06-04 11:44] LABS: Basophils # (A) 0.05 X 10*3/uL (0.00-0.10); Basophils % (A) 0.7 %; Eosinophils # (A) 0.25 X 10*3/uL (0.04-0.35); Eosinophils % (A) 3.3 %; HCT 42.6 % (39.6-50.0); HGB 13.6 g/dL (13.0-17.0); Immature Grans, Automated 0.1 %; Lymphocytes # (A) 3.21 X 10*3/uL (0.90-5.00); Lymphocytes % (A) 42.7 %; MCH 28.3 pg (27.0-32.0); MCHC 31.9 g/dL (32.0-37.0); MCV 88.8 fL (80.0-97.0); Mean Platelet Volume 10.4 fL (9.5-12.2); Monocytes # (A) 0.68 X 10*3/uL (0.20-1.00); NRBC Per 100 WBC 0 /100 WBCS (0.0-0.0); Neutrophils # (A) 3.32 X 10*3/uL (1.80-7.70); Neutrophils % (A) 44.2 %; Platelet Count 327 X 10*3/uL (140-440); WBC 7.52 X 10*3/uL (4.50-10.00)
[2021-06-04 12:05] LABS: African American GFR (CKD) 99.2 (60.0-200.0); Anion Gap 11.5 mmol/L (10.00-18.00); BUN/Creat Ratio 9.22 Ratio (12.00-20.00); Blood Urea Nitrogen 8.3 mg/dL (9.0-27.0); Calcium 9.3 mg/dL (8.7-10.3); Carbon Dioxide 23.5 mmol/L (20.0-27.5); Non-African American GFR(CKD) 85.6 (60.0-200.0); Potassium 4.1 mmol/L (3.5-5.5)
[2021-06-04 13:33] LABS: Appearance,Urine Clear (Clear); Bilirubin,Urine Negative (Negative); Blood,Urine Moderate (Negative); Color,Urine Yellow; Glucose,Urine (UA) Negative (Negative); Ketones,Urine Negative (Negative); Leukocyte Esterase,Urine Trace (Negative); Mucus,Urine Rare /hpf; Nitrite,Urine Negative (Negative); Protein,Urine Trace (Negative); RBC,Urine 83 /hpf (0-5); Specific Gravity,Urine 1.023 (1.001-1.035); Urobilinogen,Urine <2.0 mg/dL (<2.0); WBC,Urine 6 /hpf (0-5)
--- NOTE | 2021-06-04 18:55 | PN ---
PROGRESS NOTE DATE OF SERVICE: 06/04/2021 This 71-year-old gentleman admitted with abdominal pain has possible acute diverticulitis. Patient is on antibiotics. Patient also has urinary retention today and a Marquis catheter has been inserted. PHYSICAL EXAMINATION: Pulse is 70, blood pressure 127/89, respiration 18. CHEST: Clear to auscultation. CARDIOVASCULAR: S1, S2 normal. ABDOMEN: Soft distention. Mild diffuse discomfort. No guarding. No rigidity. LABS: Noted. UA is mostly hematuria. ASSESSMENT: 1. Acute gastrointestinal bleed, possibly secondary to acute diverticular bleed. 2. Diverticulosis and mild diverticulitis. 3. Atrial fibrillation with a controlled ventricular rate. 4. Urinary retention. 5. Ischemic cardiomyopathy, status post AICD. 6. Coronary artery disease, stent. 7. Hypertension. 8. Hyperlipidemia. 9. History of diverticulosis. 10.Gastroesophageal reflux disease. RECOMMENDATIONS AND DISCUSSION: I recommend to continue current medications, continue with the monitoring, symptomatic treatment. Otherwise at this time continue with the Marquis catheter. Continue the antibiotics. Prognosis guarded. Further recommendations to follow. MMODL / IJN: [id number] /
[2021-06-04] MEDS: DOXEPIN 25 MG CAP PO SCH (22:35)
[2021-06-04] MEDS: MIRTAZAPINE 45 MG TABLET PO SCH (22:35)
[2021-06-04] MEDS: MONTELUKAST 10 MG TAB PO SCH (22:36)
[2021-06-05] MEDS: PIPERACILLIN-TAZOBACTAM 3.375 GM in SODIUM CHLORIDE 0.9% 100 ML IVPB SCH ×3 (04:57→19:35)
[2021-06-05] MEDS: ALBUTEROL NEBULIZED 2.5 MG/3 ML INHALATION PRN (06:02)
[2021-06-05] MEDS: SYMBICORT 160-4.5 MCG INHALER INHALATION SCH ×2 (06:02→20:41)
[2021-06-05] MEDS: carvediloL 12.5 MG TAB PO SCH ×2 (08:58→17:40)
[2021-06-05] MEDS: PANTOPRAZOLE 40 MG TABLET PO SCH ×2 (08:58→17:39)
[2021-06-05] MEDS: TAMSULOSIN 0.4 MG CAP.ER.24H PO SCH (08:58)
[2021-06-05] MEDS: guaiFENesin 600 MG TABLET.ER PO SCH ×2 (08:59→21:52)
[2021-06-05] MEDS: ATORVASTATIN 20 MG TAB PO SCH (08:59)
[2021-06-05] MEDS: ASPIRIN 81 MG PO SCH (08:59)
[2021-06-05] MEDS: FUROSEMIDE 20 MG TAB PO SCH (08:59)
[2021-06-05] MEDS: CITALOPRAM HYDROBROMIDE 10 MG TAB PO SCH (08:59)
[2021-06-05] MEDS: DOCUSATE 100 MG CAP PO SCH (08:59)
[2021-06-05] MEDS: SPIRONOLACTONE 25 MG TAB PO SCH (09:00)
[2021-06-05] MEDS: OXYBUTYNIN CHLORIDE 5 MG TAB PO SCH ×3 (09:00→21:52)
[2021-06-05] MEDS: LOSARTAN 50 MG TAB PO SCH (09:00)
[2021-06-05] MEDS: QUEtiapine 200 MG TAB PO SCH ×2 (09:00→21:52)
[2021-06-05 19:57] VITALS: RESP 18
[2021-06-05] MEDS: MIRTAZAPINE 45 MG TABLET PO SCH (21:52)
[2021-06-05] MEDS: MONTELUKAST 10 MG TAB PO SCH (21:52)
[2021-06-05] MEDS: DOXEPIN 25 MG CAP PO SCH (21:52)
--- NOTE | 2021-06-05 23:07 | P.PN ---
Subjective Progress Note Date: 06/05/21 GI bleed Patient is a pleasant 71-year-old male that presented to the emergency room with abdominal cramping and multiple episodes of bloody stool. Patient states this started after eating ravioli. Patient has a significant medical history that includes atrial fibrillation on eliquis, diverticulosis, coronary artery disease, heart failure, COPD, GERD, hypertension, hyperlipidemia. Surgical h istory includes cardiac stent, EGD/colonoscopy with polypectomy, and AICD placement. Hemoglobin on admission was 15.0. Cardiology and Gen. surgery was consulted. Eliquis and aspirin on hold. Hospitalist coverage 05/29/2021 05/30/2021 Patient was seen and examined at bedside. Patient was resting comfortably in bed in no acute distress. Patient reports continued diarrhea and abdominal bloating. General surgery is recommending colonoscopy on to assess cause of bleed. Patient will be on a clear liquid diet and begin bowel prep tomorrow. Patient will be monitored while being off anticoagulant. 05/31/2021 Patient was assessed at bedside. Patient was sitting up in bed in no acute distress. Patient reports feeling congested, coughing up phlegm. Mucinex was ordered. He also reports a decrease in bowel movements, but is having a lot of gas. Patient denies shortness of breath, chest pain, headache. Patient will begin bowel prep today for colonoscopy tomorrow. Continue monitoring for bleeding or symptoms of clotting. 06/01/2021 Patient is seen and assessed at bedside. Patient sitting up in bed, continues to report excess gas. He did complete bowel prep for colonoscopy today. Patient denies chest pain, palpitations, headache, shortness of breath. Did have some right chest tightness, states it went away when he stretched. Patient is waiting to go down to or. Awaiting colonoscopy results. Currently covering for Dr. Moran 06/02/2021 Patient is seen and evaluated this morning status post colonoscopy with Dr. Meehan which showed mild diverticulitis with evidence of diverticulosis and diverticular bleed. Anticoagulant currently on hold and will continue to monitor hemoglobin closely. Multiple been is stable at 14.5, patient is afebrile and white blood count is 8.2. Patient continues with abdominal pain on the left and right lower quadrants and reports to minimal gas. Patient states he has not had a bowel movement yet. No active bleeding noted at this time. Patient was resumed on regular diet although with continued pain recommend decreasing the diet back down to clear or full liquids. Surgery is following. Patient denies any chest pain or shortness of breath. Patient is afebrile. 06/05/2021 Patient seen today and was reporting some urinary retention and ervin catheter was placed. Urology consulted. Patient with no further bleeding noted at this time and reports to some improvement in abdominal pain. Patient continued on IV antibiotics. General surgery following and diet has been advanced. Patient denies chest pain or shortness of breath. Patient is afebrile. Patient anticoagulant is on hold currently. Review of systems: Constitutional: No reports of fatigue, fever, or chills Cardiovascular: No reports of chest pain or palpitations Respiratory: No reports of shortness of breath or cough GI: No reports of nausea, vomiting : No reports of dysuria or retention after indwelling ervin was placed Neurovascular: No reports of weakness or numbness All medications have been reviewed Active Medications Albuterol Sulfate (Albuterol Nebulized 2.5 Mg/3 Ml) 2.5 mg INHALATION RT-QID PRN PRN Reason: Shortness Of Breath Last Admin: 06/05/21 06:02 Dose: 2.5 mg Documented by: Aspirin (Aspirin 81 Mg) 81 mg PO DAILY [facility] Last Admin: 06/05/21 08:59 Dose: 81 mg Documented by: Atorvastatin Calcium (Atorvastatin 20 Mg Tab) 20 mg PO DAILY [facility] Last Admin: 06/05/21 08:59 Dose: 20 mg Documented by: Benzocaine/Menthol (Benzocaine/Menthol Lozeng 1 Each Lozenge) 1 each MUCOUS MEM Q4HR PRN PRN Reason: Sore Throat Last Admin: 06/04/21 22:38 Dose: 1 each Documented by: Budesonide/Formoterol Fumarate (Symbicort 160-4.5 Mcg Inhaler) 2 puff INHALATION RT-BID [facility] Last Admin: 06/05/21 20:41 Dose: 2 puff Documented by: Carvedilol (Carvedilol 12.5 Mg Tab) 12.5 mg PO BID-W/MEALS [facility] Last Admin: 06/05/21 17:40 Dose: 12.5 mg Documented by: Citalopram Hydrobromide (Citalopram Hydrobromide 10 Mg Tab) 10 mg PO DAILY [facility] Last Admin: 06/05/21 08:59 Dose: 10 mg Documented by: Docusate Sodium (Docusate 100 Mg Cap) 100 mg PO DAILY [facility] Last Admin: 06/05/21 08:59 Dose: 100 mg Documented by: Doxepin HCl (Doxepin 25 Mg Cap) 25 mg PO HS [facility] Last Admin: 06/05/21 21:52 Dose: 25 mg Documented by: Furosemide (Furosemide 20 Mg Tab) 20 mg PO DAILY [facility] Last Admin: 06/05/21 08:59 Dose: 20 mg Documented by: Guaifenesin (Guaifenesin 600 Mg Tablet.Er) 1,200 mg PO Q12HR [facility] Last Admin: 06/05/21 21:52 Dose: 1,200 mg Documented by: Piperacillin Sod/Tazobactam (Sod 3.375 gm/ Sodium Chloride) 100 mls @ 25 mls/hr IVPB Q8H [facility]; Protocol Last Admin: 06/05/21 19:35 Dose: 25 mls/hr Documented by: Losartan Potassium (Losartan 50 Mg Tab) 50 mg PO DAILY [facility] Last Admin: 06/05/21 09:00 Dose: 50 mg Documented by: Mirtazapine (Mirtazapine 45 Mg Tablet) 45 mg PO HS [facility] Last Admin: 06/05/21 21:52 Dose: 45 mg Documented by: Montelukast Sodium (Montelukast 10 Mg Tab) 10 mg PO HS [facility] Last Admin: 06/05/21 21:52 Dose: 10 mg Documented by: Nitroglycerin (Nitroglycerin Sl Tabs 0.4 Mg Tab) 0.4 mg SUBLINGUAL Q5M PRN PRN Reason: Chest Pain Oxybutynin Chloride (Oxybutynin Chloride 5 Mg Tab) 5 mg PO TID [facility] Last Admin: 06/05/21 21:52 Dose: 5 mg Documented by: Pantoprazole Sodium (Pantoprazole 40 Mg Tablet) 40 mg PO AC-BID [facility] Last Admin: 06/05/21 17:39 Dose: 40 mg Documented by: Quetiapine Fumarate (Quetiapine 200 Mg Tab) 200 mg PO BID [facility] Last Admin: 06/05/21 21:52 Dose: 200 mg Documented by: Spironolactone (Spironolactone 25 Mg Tab) 25 mg PO DAILY [facility] Last Admin: 06/05/21 09:00 Dose: 25 mg Documented by: Tamsulosin HCl (Tamsulosin 0.4 Mg Cap.Er.24h) 0.4 mg PO -BRKFST [facility] Last Admin: 06/05/21 08:58 Dose: 0.4 mg Documented by: Physical Examination: Gen: This is a 71-year-old male, awake, alert and oriented 3, well-developed, well-nourished. HEENT: Head is atraumatic, normocephalic. Pupils equal, round. Sclerae is ani cteric. NECK: Supple. No JVD. No lymphadenopathy. No thyromegaly. LUNGS: Diminished breath sounds bilaterally with no wheezing or rhonchi noted. No intercostal retractions. HEART: S1, S2 are muffled. ABDOMEN: Soft. normoactive Bowel sounds are present. No masses. No tenderness. EXTREMITIES: No pedal edema. No calf tenderness. NEUROLOGICAL: Patient is awake, alert and oriented x3. Cranial nerves 2 through 12 are grossly intact. Assessment: Acute GI bleed possibly secondary to diverticular bleed Diverticulosis with mild diverticulitis as noted on colonoscopy Atrial fibrillation with controlled ventricular response Urinary retention Ischemic cardiomyopathy status post AICD Coronary artery disease status post stenting Hypertension Hyperlipidemia Diverticulosis GERD Anxiety Hard of hearing GI prophylaxis DVT prophylaxis Full code Plan: Recommend continue with current medications and management. Appropriate home medications have been resumed. Recommend to continue holding Eliquis given his recent GI bleed. Will need to discuss with surgery about resuming. Recommend repeat labs in the morning. Due to multiple complex medical issues, prognosis is guarded. The impression and plan of care has been dictated by Niurka Johnston nurse pra ctitioner as directed. MD Beny I have performed a history and examination and MDM of this patient, discussed the same with the dictator, and agree with the dictator's assessment and plan as written ,documented as a scribe. Based on total visit time, I have performed more than 50% of the visit. Objective - Vital Signs Vital signs: Vital Signs Temp 98.4 F 06/05/21 04:57 Pulse 52 L 06/05/21 08:53 Resp 16 06/05/21 04:57 BP 119/61 06/05/21 08:53 Pulse Ox 97 06/05/21 08:53 Intake & Output 06/04/21 06/05/21 06/05/21 18:59 06:59 18:59 Intake Total 100 Output Total 3520 2300 Balance -3520 -2200 Weight 104.5 kg Intake: Intake, IV Titration 100 Amount Piperacillin-Tazobactam 3 100 .375 gm In Sodium Chloride 0.9% 100 ml @ 25 mls/hr IVPB Q8H [facility] Rx#: [id number] Output: Urine 2600 2300 Uretheral (Ervin) 2100 Post Void Residual 920 Other: Voiding Method Bedside Commode Indwelling Catheter Urinal # Voids 1 # Bowel Movements 1 1 - Labs CBC & Chem 7: 06/04/21 06:53 06/04/21 06:53 Labs: Abnormal Lab Results - Last 24 Hours (Table) 06/04/21 06/04/21 06/04/21 Range/Units 06:53 06:53 13:00 MCHC 31.9 L (32.0-37.0) g/dL BUN 8.3 L (9.0-27.0) mg/dL BUN/Creatinine Ratio 9.22 L (12.00-20.00) Ratio Urine Protein Trace H (Negative) Urine Blood Moderate H (Negative) Ur Leukocyte Esterase Trace H (Negative) Urine RBC 83 H (0-5) /hpf Urine WBC 6 H (0-5) /hpf Urine Mucus Rare H (None) /hpf
[2021-06-06] MEDS: PIPERACILLIN-TAZOBACTAM 3.375 GM in SODIUM CHLORIDE 0.9% 100 ML IVPB SCH ×3 (04:07→19:19)
[2021-06-06 06:26] LABS: Basophils # (A) 0.1 k/uL (0-0.2); Basophils % (A) 1 %; Eosinophils # (A) 0.2 k/uL (0-0.7); Eosinophils % (A) 3 %; HCT 42.6 % (39.0-53.0); HGB 13.6 gm/dL (13.0-17.5); Lymphocytes # (A) 3.3 k/uL (1.0-4.8); Lymphocytes % (A) 37 %; MCH 29.2 pg (25.0-35.0); MCHC 31.9 g/dL (31.0-37.0); MCV 91.4 fL (80.0-100.0); Monocytes # (A) 0.6 k/uL (0-1.0); Monocytes % (A) 7 %; Neutrophils # (A) 4.7 k/uL (1.3-7.7); Neutrophils % (A) 52 %; Platelet Count 361 k/uL (150-450); RBC 4.66 m/uL (4.30-5.90); RDW 13.7 % (11.5-15.5)
[2021-06-06 06:41] LABS: African American GFR (CKD) >90 (>60 ml/min/1.73 sqM); Anion Gap 5 mmol/L; Blood Urea Nitrogen 7 mg/dL (9-20); Calcium 9.3 mg/dL (8.4-10.2); Carbon Dioxide 25 mmol/L (22-30); Chloride 105 mmol/L (98-107); Glucose 104 mg/dL (74-99); Non-African American GFR(CKD) 88 (>60 ml/min/1.73 sqM); Potassium 4.2 mmol/L (3.5-5.1); Sodium 135 mmol/L (137-145)
[2021-06-06] MEDS: SYMBICORT 160-4.5 MCG INHALER INHALATION SCH ×2 (07:20→19:49)
--- NOTE | 2021-06-06 07:22 | P.GSCN ---
History of Present Illness Consult date: 06/06/21 History of present illness: 71 yo male in the hospital with a gi bleed. He had a colonoscopy that identified diverticula that is the presumed cause of the bleed. He is in urine retention and for this reason we have been asked to see him. The volume of retention is unclear.He is on oxybutinin 5 tid. He was placed on this by Dr. Moran several months ago for what sounds like urgency and frequency. It helped a little bit. He previously has been on Flomax but gave him sinus congestion. He states that his urinary stream is normally slow. He has not had a prostate examination some time. Review of Systems All systems: negative - Constitutional Denies fever, Denies weight loss - EENT Eyes: denies blurred vision Ears: bilateral: decreased hearing Ears, nose, mouth and throat: Denies dysphagia - Cardiovascular Reports irregular heart beat - Respiratory Denies cough, Denies 7 - Gastrointestinal Reports as per HPI - Genitourinary Reports erectile dysfunction - Integumentary Denies rash, Denies unusual bruising - Neurological Denies headaches, Denies syncope - Hematologic/Lymphatic Denies easy bleeding, Denies easy bruising Past Medical History Past Medical History: Atrial Fibrillation, Asthma, Coronary Artery Disease (CAD), Heart Failure, COPD, CVA/TIA, GERD/Reflux, Hearing Disorder / Deafness, Hyperlipidemia, Hypertension, Pneumonia, Sleep Apnea/CPAP/BIPAP, Syncope Additional Past Medical History / Comment(s): Benign polyps removed, PVC's, cardiomyopathy, 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 Stovall, gout bilateral feet, occasional numbness L leg/L great toe, hx of PHIL with CPAP but no longer an issue since wt. 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 History of Any Multi-Drug Resistant Organisms: None Reported Past Surgical History: AICD, Cholecystectomy, Heart Catheterization, Heart Catheterization With Stent, Hernia Repair, Tonsillectomy Additional Past Surgical History / Comment(s): 07/24/14 EGD/colonoscopy with polypectomy/bx, 2005 AICD/2014 AICD changed to medtronic, 2002 Cardiac stent in [place], 2007 cardiac cath [facility], upper teeth extracted for denture, L ear has tube, R ear plugged, cyst removed L eyelid, bilateral cataract removal, L ganglion cyst removal, L/R inguinal hernia repairs with mesh, penile implant. Past Anesthesia/Blood Transfusion Reactions: No Reported Reaction Date of Last Stent Placement:: 2002 Type of Cardiac Device: AICD Device Placement Date:: 2014 Past Psychological History: Anxiety, Depression Additional Psychological History / Comment(s): Pt lives alone in an apartment. He is independent. He does not own a vehicle so he uses [employer] to get to appointments. Smoking Status: Never smoker Past Alcohol Use History: Occasional Additional Past Alcohol Use History / Comment(s): Pt started smoking an occasional cigar about 1 1/2 yrs ago. Past Drug Use History: None Reported - Past Family History Father Family Medical History: Coronary Artery Disease (CAD), Pneumonia Additional Family Medical History / Comment(s): Father of pneumonia at the age of 82 yrs. Mother Family Medical History: Liver Disease, Renal Disease Additional Family Medical History / Comment(s): father passed after a bout with pneumonia Medications and Allergies Home Medications Medication Instructions Recorded Confirmed Type Furosemide [Lasix] 20 mg PO DAILY 04/01/14 05/29/21 History Mirtazapine 45 mg PO HS 04/01/14 05/29/21 History Omeprazole 40 mg PO AC-BRKFST 04/01/14 05/29/21 History Oxybutynin Chloride [Ditropan] 5 mg PO TID 04/01/14 05/29/21 History QUEtiapine [SEROquel] 200 mg PO BID 04/01/14 05/29/21 History Spironolactone [Aldactone] 25 mg PO DAILY 04/01/14 05/29/21 History Budesonide/Formoterol Fumarate 2 puff INHALATION RT-BID 07/20/14 05/29/21 History [Symbicort 160-4.5 Mcg Inhaler] Citalopram Hydrobromide [CeleXA] 10 mg PO DAILY 07/20/14 05/29/21 History Levocetirizine Dihydrochloride 5 mg PO DAILY 07/20/14 05/29/21 History Montelukast [Singulair] 10 mg PO HS 07/20/14 05/29/21 History Doxepin [SINEquan] 25 mg PO HS 01/17/16 05/29/21 History Apixaban [Eliquis] 5 mg PO BID 06/02/20 05/29/21 History Atorvastatin [Lipitor] 20 mg PO DAILY 06/02/20 05/29/21 History Aspirin 81 mg PO DAILY #30 chewable 06/04/20 05/29/21 Rx Nitroglycerin Sl Tabs [Nitrostat] 0.4 mg SL Q5M PRN 06/06/20 05/29/21 History Albuterol Inhaler [Ventolin Hfa 2 puff INHALATION RT-QID PRN 05/29/21 05/29/21 History Inhaler] Carvedilol [Coreg] 12.5 mg PO BID-W/MEALS 05/29/21 05/29/21 History Docusate [Colace] 100 mg PO DAILY 05/29/21 05/29/21 History Verapamil HCl [Verapamil Sr] 120 mg PO DAILY 05/29/21 05/29/21 History Allergies Allergy/AdvReac Type Severity Reaction Status Date / Time Barbiturates Allergy Anaphylaxis Verified 05/29/21 20:37 Surgical - Exam Vital Signs Pulse Resp BP Pulse Ox 60 14 144/87 98 05/29/21 17:12 05/29/21 17:12 05/29/21 17:12 05/29/21 17:12 - General well developed, well nourished, no distress - Eyes normal ocular movement, no icteric - ENT no hearing loss, no congestion, decreased hearing - Neck no masses, trachea midline - Respiratory normal respiratory effort, clear to auscultation - Cardiovascular Rhythm: irregularly irregular - Abdomen Abdomen: soft, non tender, no guarding, no rigid, no rebound - Genitourinary IPP indwelling catheter with normal genitalia - Integumentary no rash, no abnormal pigmentation - Neurologic no disoriented, no combative - Psychiatric oriented to time, oriented to person, oriented to place, speech is normal, memory intact Results - Labs 06/06/21 05:55 06/06/21 05:55 - Imaging CT scan - abdomen: report reviewed, image reviewed CT scan - pelvis: report reviewed, image reviewed Assessment and Plan Assessment: Impression: Urinary retention. BPH. GI bleed. Multiple medical illnesses. Recommendations: I will discontinue the oxybutynin and start him on Flomax. I will do a rectal examination when it is more convenient for the patient. We'll try the catheter on 24 hours and see if he can void.
[2021-06-06] MEDS: carvediloL 12.5 MG TAB PO SCH ×2 (08:51→17:54)
[2021-06-06] MEDS: guaiFENesin 600 MG TABLET.ER PO SCH ×2 (08:51→20:59)
[2021-06-06] MEDS: SPIRONOLACTONE 25 MG TAB PO SCH (08:51)
[2021-06-06] MEDS: QUEtiapine 200 MG TAB PO SCH ×2 (08:51→20:58)
[2021-06-06] MEDS: LOSARTAN 50 MG TAB PO SCH (08:51)
[2021-06-06] MEDS: FUROSEMIDE 20 MG TAB PO SCH (08:51)
[2021-06-06] MEDS: TAMSULOSIN 0.4 MG CAP.ER.24H PO SCH (08:52)
[2021-06-06] MEDS: PANTOPRAZOLE 40 MG TABLET PO SCH ×2 (08:52→17:54)
[2021-06-06] MEDS: ATORVASTATIN 20 MG TAB PO SCH (08:52)
[2021-06-06] MEDS: ASPIRIN 81 MG PO SCH (08:52)
[2021-06-06] MEDS: DOCUSATE 100 MG CAP PO SCH (08:52)
[2021-06-06] MEDS: CITALOPRAM HYDROBROMIDE 10 MG TAB PO SCH (08:52)
--- NOTE | 2021-06-06 12:10 | P.DS ---
Providers Date of admission: 05/30/21 13:57 Expected date of discharge: 06/06/21 Attending physician: Hudson Moran Consults: 06/05/21 14:14 Consult Physician Urgent Consulting Provider: Freddy Hastings Consult Reason/Comments: bladder distention, ervin Do you want consulting provider notified?: Yes Primary care physician: Hudson Moran [facility] Course: Patient is a pleasant 71-year-old male that presented to the emergency room with abdominal cramping and multiple episodes of bloody stool. Patient states this started after eating ravioli. Patient has a significant medical history that includes atrial fibrillation on eliquis, diverticulosis, coronary artery disease, heart failure, COPD, GERD, hypertension, hyperlipidemia. Surgical history includes cardiac stent, EGD/colonoscopy with polypectomy, and AICD placement. Hemoglobin on admission was 15.0. Cardiology and Gen. surgery was consulted. Eliquis and aspirin on hold. Hospitalist coverage 05/29/2021 05/30/2021 Patient was seen and examined at bedside. Patient was resting comfortably in bed in no acute distress. Patient reports continued diarrhea and abdominal bloating. General surgery is recommending colonoscopy on to assess cause of bleed. Patient will be on a clear liquid diet and begin bowel prep tomorrow. Patient will be monitored while being off anticoagulant. 05/31/2021 Patient was assessed at bedside. Patient was sitting up in bed in no acute distress. Patient reports feeling congested, coughing up phlegm. Mucinex was ordered. He also reports a decrease in bowel movements, but is having a lot of gas. Patient denies shortness of breath, chest pain, headache. Patient will begin bowel prep today for colonoscopy tomorrow. Continue monitoring for bleeding or symptoms of clotting. 06/01/2021 Patient is seen and assessed at bedside. Patient sitting up in bed, continues to report excess gas. He did complete bowel prep for colonoscopy today. Patient denies chest pain, palpitations, headache, shortness of breath. Did have some right chest tightness, states it went away when he stretched. Patient is waiting to go down to or. Awaiting colonoscopy results. 06/02/21-06/05/21 hospitalist coverage 06/06/21 Patient was seen and assessed at bedside. Patient resting comfortably in bed, states he needs to go home. Patient was not discharged due to urinary retenti on. Continues to report cough. Urology saw patient this morning, discontinued oxybutynin and increased Flomax. Will discontinue Ervin. Patient can be discharged home after he is able to void. Assessment: Acute GI bleed, hemoglobin stable urinary retention Atrial fibrillation with controlled ventricular response Ischemic cardiomyopathy status post AICD Coronary artery disease status post stenting Hypertension Hyperlipidemia Diverticulosis GERD Anxiety Hard of hearing Health Concerns: multiple co-morbidities Pertinent Studies: chest xray- basilar increased density CT abd and pelvis- negative for acute diverticulitis, distended bladder Procedures: Colonoscopy on 06/01/2021 Patient Condition at Discharge: Fair Plan - Discharge Summary Discharge Rx Participant: No New Discharge Prescriptions: New Losartan [Cozaar] 50 mg PO DAILY #30 tab Doxepin [SINEquan] 25 mg PO HS cap Tamsulosin [Flomax] 0.4 mg PO PC-BRKFST #30 cap Tamsulosin [Flomax] 0.4 mg PO PC-SUPPER #30 cap Continue Mirtazapine 45 mg PO HS QUEtiapine [SEROquel] 200 mg PO BID Omeprazole 40 mg PO AC-BRKFST Spironolactone [Aldactone] 25 mg PO DAILY Furosemide [Lasix] 20 mg PO DAILY Montelukast [Singulair] 10 mg PO HS Levocetirizine Dihydrochloride 5 mg PO DAILY Budesonide/Formoterol Fumarate [Symbicort 160-4.5 Mcg Inhaler] 2 puff INHALATION RT-BID Citalopram Hydrobromide [CeleXA] 10 mg PO DAILY Apixaban [Eliquis] 5 mg PO BID Atorvastatin [Lipitor] 20 mg PO DAILY Aspirin 81 mg PO DAILY #30 chewable Nitroglycerin Sl Tabs [Nitrostat] 0.4 mg SL Q5M PRN PRN Reason: Chest Pain Carvedilol [Coreg] 12.5 mg PO BID-W/MEALS Docusate [Colace] 100 mg PO DAILY Albuterol Inhaler [Ventolin Hfa Inhaler] 2 puff INHALATION RT-QID PRN PRN Reason: Shortness Of Breath Verapamil HCl [Verapamil Sr] 120 mg PO DAILY Discontinued Oxybutynin Chloride [Ditropan] 5 mg PO TID Doxepin [SINEquan] 25 mg PO HS Discharge Medication List Furosemide [Lasix] 20 mg PO DAILY 04/01/14 [History] Mirtazapine 45 mg PO HS 04/01/14 [History] Omeprazole 40 mg PO AC-BRKFST 04/01/14 [History] QUEtiapine [SEROquel] 200 mg PO BID 04/01/14 [History] Spironolactone [Aldactone] 25 mg PO DAILY 04/01/14 [History] Budesonide/Formoterol Fumarate [Symbicort 160-4.5 Mcg Inhaler] 2 puff INHALATION RT-BID 07/20/14 [History] Citalopram Hydrobromide [CeleXA] 10 mg PO DAILY 07/20/14 [History] Levocetirizine Dihydrochloride 5 mg PO DAILY 07/20/14 [History] Montelukast [Singulair] 10 mg PO HS 07/20/14 [History] Apixaban [Eliquis] 5 mg PO BID 06/02/20 [History] Atorvastatin [Lipitor] 20 mg PO DAILY 06/02/20 [History] Aspirin 81 mg PO DAILY #30 chewable 06/04/20 [Rx] Nitroglycerin Sl Tabs [Nitrostat] 0.4 mg SL Q5M PRN 06/06/20 [History] Albuterol Inhaler [Ventolin Hfa Inhaler] 2 puff INHALATION RT-QID PRN 05/29/21 [History] Carvedilol [Coreg] 12.5 mg PO BID-W/MEALS 05/29/21 [History] Docusate [Colace] 100 mg PO DAILY 05/29/21 [History] Verapamil HCl [Verapamil Sr] 120 mg PO DAILY 05/29/21 [History] Doxepin [SINEquan] 25 mg PO HS cap 06/06/21 [Rx] Losartan [Cozaar] 50 mg PO DAILY #30 tab 06/06/21 [Rx] Tamsulosin [Flomax] 0.4 mg PO PC-BRKFST #30 cap 06/06/21 [Rx] Tamsulosin [Flomax] 0.4 mg PO PC-SUPPER #30 cap 06/06/21 [Rx] Follow up Appointment(s)/Referral(s): Hudson Moran MD [Primary Care Provider] - 1-2 days Kaden Monsalve MD [STAFF PHYSICIAN] - 2 Weeks Neo Meehan MD [STAFF PHYSICIAN] - 1 Week Discharge Disposition: HOME SELF-CARE
[2021-06-06] MEDS: APIXABAN 5 MG TAB PO SCH ×2 (14:35→21:01)
[2021-06-06 14:58] VITALS: BMI 29.8
[2021-06-06] MEDS ORDERED: TAMSULOSIN 0.4 MG CAP.ER.24H PO SCH (18:30)
[2021-06-06] MEDS: MIRTAZAPINE 45 MG TABLET PO SCH (20:58)
[2021-06-06] MEDS: MONTELUKAST 10 MG TAB PO SCH (20:59)
[2021-06-06] MEDS: DOXEPIN 25 MG CAP PO SCH (20:59)
[2021-06-06] MEDS: BENZOCAINE/MENTHOL LOZENG 1 EACH LOZENGE MUCOUS MEM PRN (21:01)
[2021-06-07] MEDS: PIPERACILLIN-TAZOBACTAM 3.375 GM in SODIUM CHLORIDE 0.9% 100 ML IVPB SCH ×2 (03:59→11:46)
[2021-06-07] MEDS: LOSARTAN 50 MG TAB PO SCH (08:28)
[2021-06-07] MEDS: QUEtiapine 200 MG TAB PO SCH (08:28)
[2021-06-07] MEDS: SPIRONOLACTONE 25 MG TAB PO SCH (08:28)
[2021-06-07] MEDS: carvediloL 12.5 MG TAB PO SCH (08:29)
[2021-06-07] MEDS: FUROSEMIDE 20 MG TAB PO SCH (08:29)
[2021-06-07] MEDS: PANTOPRAZOLE 40 MG TABLET PO SCH (08:29)
[2021-06-07] MEDS: guaiFENesin 600 MG TABLET.ER PO SCH (08:29)
[2021-06-07] MEDS: ATORVASTATIN 20 MG TAB PO SCH (08:29)
[2021-06-07] MEDS: ASPIRIN 81 MG PO SCH (08:29)
[2021-06-07] MEDS: CITALOPRAM HYDROBROMIDE 10 MG TAB PO SCH (08:29)
[2021-06-07] MEDS: TAMSULOSIN 0.4 MG CAP.ER.24H PO SCH (08:29)
[2021-06-07] MEDS: DOCUSATE 100 MG CAP PO SCH (08:30)
[2021-06-07] MEDS: APIXABAN 5 MG TAB PO SCH (08:30)
[2021-06-07] MEDS: ALBUTEROL NEBULIZED 2.5 MG/3 ML INHALATION PRN (08:50)
[2021-06-07] MEDS: SYMBICORT 160-4.5 MCG INHALER INHALATION SCH (08:50)
--- NOTE | 2021-06-07 11:52 | P.DS ---
Providers Date of admission: 05/30/21 13:57 Expected date of discharge: 06/07/21 Attending physician: Hudson Moran Consults: 06/05/21 14:14 Consult Physician Urgent Consulting Provider: Freddy Hastings Consult Reason/Comments: bladder distention, ervin Do you want consulting provider notified?: Yes Primary care physician: Hudson Moran [facility] Course: Patient is a pleasant 71-year-old male that presented to the emergency room with abdominal cramping and multiple episodes of bloody stool. Patient states this started after eating ravioli. Patient has a significant medical history that includes atrial fibrillation on eliquis, diverticulosis, coronary artery disease, heart failure, COPD, GERD, hypertension, hyperlipidemia. Surgical history includes cardiac stent, EGD/colonoscopy with polypectomy, and AICD placement. Hemoglobin on admission was 15.0. Cardiology and Gen. surgery was consulted. Eliquis and aspirin on hold. Hospitalist coverage 05/29/2021 05/30/2021 Patient was seen and examined at bedside. Patient was resting comfortably in bed in no acute distress. Patient reports continued diarrhea and abdominal bloating. General surgery is recommending colonoscopy on to assess cause of bleed. Patient will be on a clear liquid diet and begin bowel prep tomorrow. Patient will be monitored while being off anticoagulant. 05/31/2021 Patient was assessed at bedside. Patient was sitting up in bed in no acute distress. Patient reports feeling congested, coughing up phlegm. Mucinex was ordered. He also reports a decrease in bowel movements, but is having a lot of gas. Patient denies shortness of breath, chest pain, headache. Patient will begin bowel prep today for colonoscopy tomorrow. Continue monitoring for bleeding or symptoms of clotting. 06/01/2021 Patient is seen and assessed at bedside. Patient sitting up in bed, continues to report excess gas. He did complete bowel prep for colonoscopy today. Patient denies chest pain, palpitations, headache, shortness of breath. Did have some right chest tightness, states it went away when he stretched. Patient is waiting to go down to or. Awaiting colonoscopy results. 06/02/21-06/05/21 hospitalist coverage 06/06/21 Patient was seen and assessed at bedside. Patient resting comfortably in bed, states he needs to go home. Patient was not discharged due to urinary retenti on. Continues to report cough. Urology saw patient this morning, discontinued oxybutynin and increased Flomax. Will discontinue Ervin. Patient can be discharged home after he is able to void. 06/07/21 Patient requested to stay last night, was nervous about urinating after catheter was removed. Patient is ready for discharge today, no changes to plan. Antibiotic added for some discomfort with urination. Stable for discharge Assessment: Acute GI bleed, hemoglobin stable urinary retention Atrial fibrillation with controlled ventricular response Ischemic cardiomyopathy status post AICD Coronary artery disease status post stenting Hypertension Hyperlipidemia Diverticulosis GERD Anxiety Hard of hearing Health Concerns: multiple co-morbidities Pertinent Studies: chest xray- basilar increased density CT abd and pelvis- negative for acute diverticulitis, distended bladder Procedures: Colonoscopy on 06/01/2021, see operative notes Patient Condition at Discharge: Good Plan - Discharge Summary Discharge Rx Participant: No New Discharge Prescriptions: New Losartan [Cozaar] 50 mg PO DAILY #30 tab Doxepin [SINEquan] 25 mg PO HS cap Amoxicillin/Potassium Clav [Augmentin 875-125 Tablet] 1 tab PO Q12HR 7 Days #14 tab Tamsulosin [Flomax] 0.4 mg PO PC-BRKFST #30 cap Tamsulosin [Flomax] 0.4 mg PO PC-SUPPER #30 cap Continue Mirtazapine 45 mg PO HS QUEtiapine [SEROquel] 200 mg PO BID Omeprazole 40 mg PO AC-BRKFST Spironolactone [Aldactone] 25 mg PO DAILY Furosemide [Lasix] 20 mg PO DAILY Montelukast [Singulair] 10 mg PO HS Levocetirizine Dihydrochloride 5 mg PO DAILY Budesonide/Formoterol Fumarate [Symbicort 160-4.5 Mcg Inhaler] 2 puff INHALATION RT-BID Citalopram Hydrobromide [CeleXA] 10 mg PO DAILY Apixaban [Eliquis] 5 mg PO BID Atorvastatin [Lipitor] 20 mg PO DAILY Aspirin 81 mg PO DAILY #30 chewable Nitroglycerin Sl Tabs [Nitrostat] 0.4 mg SL Q5M PRN PRN Reason: Chest Pain Carvedilol [Coreg] 12.5 mg PO BID-W/MEALS Docusate [Colace] 100 mg PO DAILY Albuterol Inhaler [Ventolin Hfa Inhaler] 2 puff INHALATION RT-QID PRN PRN Reason: Shortness Of Breath Verapamil HCl [Verapamil Sr] 120 mg PO DAILY Discontinued Oxybutynin Chloride [Ditropan] 5 mg PO TID Doxepin [SINEquan] 25 mg PO HS Discharge Medication List Furosemide [Lasix] 20 mg PO DAILY 04/01/14 [History] Mirtazapine 45 mg PO HS 04/01/14 [History] Omeprazole 40 mg PO AC-BRKFST 04/01/14 [History] QUEtiapine [SEROquel] 200 mg PO BID 04/01/14 [History] Spironolactone [Aldactone] 25 mg PO DAILY 04/01/14 [History] Budesonide/Formoterol Fumarate [Symbicort 160-4.5 Mcg Inhaler] 2 puff INHALATION RT-BID 07/20/14 [History] Citalopram Hydrobromide [CeleXA] 10 mg PO DAILY 07/20/14 [History] Levocetirizine Dihydrochloride 5 mg PO DAILY 07/20/14 [History] Montelukast [Singulair] 10 mg PO HS 07/20/14 [History] Apixaban [Eliquis] 5 mg PO BID 06/02/20 [History] Atorvastatin [Lipitor] 20 mg PO DAILY 06/02/20 [History] Aspirin 81 mg PO DAILY #30 chewable 06/04/20 [Rx] Nitroglycerin Sl Tabs [Nitrostat] 0.4 mg SL Q5M PRN 06/06/20 [History] Albuterol Inhaler [Ventolin Hfa Inhaler] 2 puff INHALATION RT-QID PRN 05/29/21 [History] Carvedilol [Coreg] 12.5 mg PO BID-W/MEALS 05/29/21 [History] Docusate [Colace] 100 mg PO DAILY 05/29/21 [History] Verapamil HCl [Verapamil Sr] 120 mg PO DAILY 05/29/21 [History] Doxepin [SINEquan] 25 mg PO HS cap 06/06/21 [Rx] Losartan [Cozaar] 50 mg PO DAILY #30 tab 06/06/21 [Rx] Tamsulosin [Flomax] 0.4 mg PO PC-BRKFST #30 cap 06/06/21 [Rx] Tamsulosin [Flomax] 0.4 mg PO PC-SUPPER #30 cap 06/06/21 [Rx] Amoxicillin/Potassium Clav [Augmentin 875-125 Tablet] 1 tab PO Q12HR 7 Days #14 tab 06/07/21 [Rx] Follow up Appointment(s)/Referral(s): Hudson Moran MD [Primary Care Provider] - 06/08/21 2:20 pm Kaden Monsalve MD [STAFF PHYSICIAN] - 06/13/21 3:45 pm (The office in front of [place] [address] [address] Neo Meehan MD [STAFF PHYSICIAN] - 06/15/21 1:30 pm Patient Instructions/Handouts: Losartan (By mouth), Tamsulosin (By mouth), Gastrointestinal Bleeding (DC), Urinary Retention in Men (ED), Heart Healthy Diet (DC) Discharge Disposition: HOME SELF-CARE
[2021-06-07 11:53] VITALS: BP 133/69; PULSE 73; TEMP 97.8
== END 2021-06-07 17:31 | disposition home or self-care (01) | DRG 378 ==
LOC: EC 17:05 → 5NMEDONC 20:36 → OBSVTOIN 05-30 13:57
PROVIDERS: ADMIT Family Medicine; ATTEND Family Medicine
PROC: 0DBN8ZX Excision of Sigmoid Colon, Via Natural or Artificial Opening Endoscopic, Diagnostic (ICD-10-PCS; principal; 2021-06-01 11:30)
DX: K57.33 Diverticulitis of large intestine without perforation or abscess with bleeding (principal); I50.22 Chronic systolic (congestive) heart failure; E78.5 Hyperlipidemia, unspecified; F32.A Depression, unspecified; F41.9 Anxiety disorder, unspecified; H91.90 Unspecified hearing loss, unspecified ear; I25.10 Atherosclerotic heart disease of native coronary artery without angina pectoris; I11.0 Hypertensive heart disease with heart failure; I25.5 Ischemic cardiomyopathy; I48.0 Paroxysmal atrial fibrillation; J44.9 Chronic obstructive pulmonary disease, unspecified; K21.9 Gastro-esophageal reflux disease without esophagitis; K57.91 Diverticulosis of intestine, part unspecified, without perforation or abscess with bleeding; R19.7 Diarrhea, unspecified; N32.89 Other specified disorders of bladder; N40.1 Benign prostatic hyperplasia with lower urinary tract symptoms; R33.8 Other retention of urine; Z79.01 Long term (current) use of anticoagulants; Z79.51 Long term (current) use of inhaled steroids; Z79.82 Long term (current) use of aspirin; Z79.899 Other long term (current) drug therapy; Z82.49 Family history of ischemic heart disease and other diseases of the circulatory system; Z86.73 Personal history of transient ischemic attack (TIA), and cerebral infarction without residual deficits; Z87.891 Personal history of nicotine dependence; Z95.5 Presence of coronary angioplasty implant and graft; Z95.810 Presence of automatic (implantable) cardiac defibrillator
CPT/HCPCS: 36415; 45380; 71045; 74176; 80048; 80053; 81001; 81003; 82272; 83735; 84484; 85025; 85027; 85610; 85652; 85730; 86140; 86850; 86900; 86901; 88305; 93005; 94640; 96360; 99285

== ENCOUNTER 2021-06-16 09:02 | Inpatient (IN) | payer MEDICARE ==
[2021-06-16 09:52] LABS: Basophils % (A) 1 %; Eosinophils # (A) 0.3 k/uL (0-0.7); Eosinophils % (A) 3 %; HGB 12.9 gm/dL (13.0-17.5); Lymphocytes # (A) 3.7 k/uL (1.0-4.8); Lymphocytes % (A) 41 %; MCH 29.8 pg (25.0-35.0); MCHC 33.1 g/dL (31.0-37.0); MCV 89.9 fL (80.0-100.0); Mean Platelet Volume 7.5; Monocytes # (A) 0.5 k/uL (0-1.0); Monocytes % (A) 6 %; Neutrophils # (A) 4.3 k/uL (1.3-7.7); Neutrophils % (A) 48 %; Platelet Count 344 k/uL (150-450); RBC 4.34 m/uL (4.30-5.90); RDW 14.4 % (11.5-15.5)
--- NOTE | 2021-06-16 10:00 | ED ---
General Adult HPI - General Chief complaint: Chest Pain Stated complaint: Swelling legs Time Seen by Provider: 06/16/21 09:07 Source: patient Mode of arrival: EMS Limitations: no limitations - History of Present Illness Initial comments: Dictation was produced using [employer] dictation software. please excuse any grammatical, word or spelling errors. Chief Complaint: 71-year-old male presents to the emergency department for chest pain History of Present Illness: 71-year-old male has multiple comorbidities. He was recently admitted to the hospital for acute GI bleed, urinary retention, A. fib with RVR, cardiomyopathy. Patient was just discharged a week ago. He states he is here today for 1-2 days of chest pain. Patient states that he is here for dull chest pain to his left anterior chest. States it radiates down his right upper extremity. Not associated with diaphoresis or nausea. Patient has history of cardiac disease. Patient currently on antibiotics that he reports R for pneumonia. He decided to stop taking his fluoroquinolones today because he feels tightness in his bilateral Achilles tendons. The ROS documented in this emergency department record has been reviewed and confirmed by me. Those systems with pertinent positive or negative responses have been documented in the HPI. All other systems are other negative and/or noncontributory. PHYSICAL EXAM: General Impression: Alert and oriented x3, not in acute distress HEENT: Normocephalic atraumatic, extra-ocular movements intact, pupils equal and reactive to light bilaterally, mucous membranes moist. Cardiovascular: Heart regular rate and rhythm Chest: Able to complete full sentences, no retractions, no tachypnea Abdomen: abdomen soft, non-tender, non-distended, no organomegaly Musculoskeletal: Pulses present and equal in all extremities, no peripheral edema Motor: no focal deficits noted Neurological: CN II-XII grossly intact, no focal motor or sensory deficits noted Skin: Intact with no visualized rashes Psych: Normal affect and mood ED course: 71-year-old well-appearing male with multiple comorbidities presents to the emergency department for chest pain. Patient's pain is atypical with typical features. Signs upon arrival are within acceptable limits. EKG does not show any signs of ischemia or infarction. He does have a pacemaker Laboratory evaluation obtained. CBC unremarkable. Cardiac panel is negative. Metabolic panel is within acceptable limits. Cardiac enzymes negative. Chest x-ray is nonacute. Patient reevaluated at bedside 11:30 and found to be in stable medical condition. Clinical presentation concerning for atypical chest pain typical features. Case discussed with mason who is Dr. Moran's mid-level provider. She wants to come and evaluate the patient at the bedside to determine need for admission. EKG interpretation: Ventricular rate 94, sinus. No signs of ischemia or infarction. QRS 117, QTC 477. no QTC prolongation, no ST or T-wave changes noted. EKG compared to 05/30/2021 showing no changes. Overall, this EKG is unremarkable Patient was evaluated at bedside by Dr. Moran and mason. They notified me at 12:12 PM that they would prefer the patient be admitted observation. Patient given aspirin. Cardiology consult ordered. - Related Data Home Medications Medication Instructions Recorded Confirmed Furosemide [Lasix] 20 mg PO DAILY 04/01/14 06/16/21 Mirtazapine 45 mg PO HS 04/01/14 06/16/21 Omeprazole 40 mg PO AC-BRKFST 04/01/14 06/16/21 QUEtiapine [SEROquel] 200 mg PO BID 04/01/14 06/16/21 Spironolactone [Aldactone] 25 mg PO DAILY 04/01/14 06/16/21 Budesonide/Formoterol Fumarate 2 puff INHALATION RT-BID 07/20/14 06/16/21 [Symbicort 160-4.5 Mcg Inhaler] Citalopram Hydrobromide [CeleXA] 10 mg PO DAILY 07/20/14 06/16/21 Levocetirizine Dihydrochloride 5 mg PO DAILY 07/20/14 06/16/21 Montelukast [Singulair] 10 mg PO HS 07/20/14 06/16/21 Apixaban [Eliquis] 5 mg PO BID 06/02/20 06/16/21 Atorvastatin [Lipitor] 20 mg PO DAILY 06/02/20 06/16/21 Nitroglycerin Sl Tabs [Nitrostat] 0.4 mg SL Q5M PRN 06/06/20 06/16/21 Albuterol Inhaler [Ventolin Hfa 2 puff INHALATION RT-QID PRN 05/29/21 06/16/21 Inhaler] Carvedilol [Coreg] 12.5 mg PO BID-W/MEALS 05/29/21 06/16/21 Docusate [Colace] 100 mg PO DAILY 05/29/21 06/16/21 Verapamil HCl [Verapamil Sr] 120 mg PO DAILY 05/29/21 06/16/21 Fluticasone Nasal [place] [Flonase 2 spr EA NOSTRIL BID PRN 06/16/21 06/16/21 Nasal [place]] Previous Rx's Medication Instructions Recorded Aspirin 81 mg PO DAILY #30 chewable 06/04/20 Doxepin [SINEquan] 25 mg PO HS cap 06/06/21 Losartan [Cozaar] 50 mg PO DAILY #30 tab 06/06/21 Tamsulosin [Flomax] 0.4 mg PO PC-BRKFST #30 cap 06/06/21 Allergies Allergy/AdvReac Type Severity Reaction Status Date / Time Barbiturates Allergy Anaphylaxis Verified 06/16/21 10:21 levofloxacin [From Levaquin] Allergy Dyspnea & Verified 06/16/21 10:21 Leg Swelling and Pain & Headache Review of Systems ROS Statement: Those systems with pertinent positive or pertinent negative responses have been documented in the HPI. ROS Other: All systems not noted in ROS Statement are negative. 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 Stovall, gout bilateral feet, occasional numbness L leg/L great toe, hx of PHIL with CPAP but no longer an issue since wt. 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 History of Any Multi-Drug Resistant Organisms: None Reported Past Surgical History: AICD, Cholecystectomy, Heart Catheterization, Heart Catheterization With Stent, Hernia Repair, Pacemaker, Tonsillectomy Additional Past Surgical History / Comment(s): 07/24/14 EGD/colonoscopy with polypectomy/bx, 2005 AICD/2014 AICD changed to medtronic, 2002 Cardiac stent in [place], 2007 cardiac cath [facility], upper teeth extracted for denture, L ear has tube, R ear plugged, cyst removed L eyelid, bilateral cataract removal, L ganglion cyst removal, L/R inguinal hernia repairs with mesh, penile implant. Past Anesthesia/Blood Transfusion Reactions: No Reported Reaction Date of Last Stent Placement:: 2002 Type of Cardiac Device: AICD Device Placement Date:: 2014 Past Psychological History: Anxiety, Depression Smoking Status: Former smoker Past Alcohol Use History: Occasional Past Drug Use History: None Reported - Past Family History Father Family Medical History: Coronary Artery Disease (CAD), Pneumonia Additional Family Medical History / Comment(s): Father of pneumonia at the age of 82 yrs. Mother Family Medical History: Liver Disease, Renal Disease Additional Family Medical History / Comment(s): father passed after a bout with pneumonia General Exam Limitations: no limitations Course Vital Signs 06/16/21 06/16/21 06/16/21 09:04 09:44 10:54 Temperature 98.2 F Pulse Rate 65 63 Pulse Rate [ 66 Pulse Oximetery ] Respiratory 18 18 Rate Blood Pressure 158/68 163/81 O2 Sat by Pulse 98 99 Oximetry Medical Decision Making - Lab Data Result diagrams: 06/16/21 09:38 06/16/21 09:38 Lab Results 06/16/21 06/16/21 06/16/21 Range/Units 09:38 09:38 09:38 WBC 9.0 (3.8-10.6) k/uL RBC 4.34 (4.30-5.90) m/uL Hgb 12.9 L (13.0-17.5) gm/dL Hct 39.0 (39.0-53.0) % MCV 89.9 (80.0-100.0) fL MCH 29.8 (25.0-35.0) pg MCHC 33.1 (31.0-37.0) g/dL RDW 14.4 (11.5-15.5) % Plt Count 344 (150-450) k/uL MPV 7.5 Neutrophils % 48 % Lymphocytes % 41 % Monocytes % 6 % Eosinophils % 3 % Basophils % 1 % Neutrophils # 4.3 (1.3-7.7) k/uL Lymphocytes # 3.7 (1.0-4.8) k/uL Monocytes # 0.5 (0-1.0) k/uL Eosinophils # 0.3 (0-0.7) k/uL Basophils # 0.0 (0-0.2) k/uL PT 9.8 (9.0-12.0) sec INR 0.9 (<1.2) APTT 25.2 (22.0-30.0) sec Sodium 136 L (137-145) mmol/L Potassium 3.7 (3.5-5.1) mmol/L Chloride 108 H (98-107) mmol/L Carbon Dioxide 20 L (22-30) mmol/L Anion Gap 8 mmol/L BUN 11 (9-20) mg/dL Creatinine 0.77 (0.66-1.25) mg/dL Est GFR (CKD-EPI)AfAm >90 (>60 ml/min/1.73 sqM) Est GFR (CKD-EPI)NonAf >90 (>60 ml/min/1.73 sqM) Glucose 104 H (74-99) mg/dL Calcium 8.8 (8.4-10.2) mg/dL Troponin I (0.000-0.034) ng/mL NT-Pro-B Natriuret Pep pg/mL 06/16/21 06/16/21 Range/Units 09:38 09:38 WBC (3.8-10.6) k/uL RBC (4.30-5.90) m/uL Hgb (13.0-17.5) gm/dL Hct (39.0-53.0) % MCV (80.0-100.0) fL MCH (25.0-35.0) pg MCHC (31.0-37.0) g/dL RDW (11.5-15.5) % Plt Count (150-450) k/uL MPV Neutrophils % % Lymphocytes % % Monocytes % % Eosinophils % % Basophils % % Neutrophils # (1.3-7.7) k/uL Lymphocytes # (1.0-4.8) k/uL Monocytes # (0-1.0) k/uL Eosinophils # (0-0.7) k/uL Basophils # (0-0.2) k/uL PT (9.0-12.0) sec INR (<1.2) APTT (22.0-30.0) sec Sodium (137-145) mmol/L Potassium (3.5-5.1) mmol/L Chloride (98-107) mmol/L Carbon Dioxide (22-30) mmol/L Anion Gap mmol/L BUN (9-20) mg/dL Creatinine (0.66-1.25) mg/dL Est GFR (CKD-EPI)AfAm (>60 ml/min/1.73 sqM) Est GFR (CKD-EPI)NonAf (>60 ml/min/1.73 sqM) Glucose (74-99) mg/dL Calcium (8.4-10.2) mg/dL Troponin I <0.012 (0.000-0.034) ng/mL NT-Pro-B Natriuret Pep 258 pg/mL Disposition Clinical Impression: Chest pain Disposition: ADMITTED IP TO THIS HOSP Condition: Fair Referrals: Hudson Moran MD [Primary Care Provider] - 1-2 days
[2021-06-16 10:01] LABS: INR 0.9 (<1.2); Partial Thromboplastin Time 25.2 sec (22.0-30.0); Prothrombin Time 9.8 sec (9.0-12.0)
--- NOTE | 2021-06-16 10:11 | XR ---
EXAMINATION TYPE: XR chest 1V portable DATE OF EXAM: 06/16/2021 COMPARISON: 06/12/2021 INDICATION: Chest pain TECHNIQUE: Single frontal view of the chest is obtained. FINDINGS: The heart size is upper limits of normal. Pacemaker left chest.. The pulmonary vasculature is normal. The lungs are clear. IMPRESSION: 1. No acute pulmonary process.
[2021-06-16 10:26] LABS: African American GFR (CKD) >90 (>60 ml/min/1.73 sqM); Anion Gap 8 mmol/L; Blood Urea Nitrogen 11 mg/dL (9-20); Calcium 8.8 mg/dL (8.4-10.2); Carbon Dioxide 20 mmol/L (22-30); Chloride 108 mmol/L (98-107); Glucose 104 mg/dL (74-99); Non-African American GFR(CKD) >90 (>60 ml/min/1.73 sqM); Sodium 136 mmol/L (137-145)
[2021-06-16 10:29] LABS: Potassium 3.7 mmol/L (3.5-5.1)
[2021-06-16] MEDS ORDERED: ASPIRIN 81 MG PO STA (12:12)
[2021-06-16] MEDS ORDERED: NITROGLYCERIN SL TABS 0.4 MG TAB SUBLINGUAL PRN (12:12)
[2021-06-16] MEDS ORDERED: FLUTICASONE 50MCG/SPRAY NASAL 16GM EA NOSTRIL PRN (12:14)
--- NOTE | 2021-06-16 12:40 | P.HPIM ---
History of Present Illness H&P Date: 06/16/21 Chief Complaint: Chest pain Patient is a very pleasant 71-year-old male, presented to the emergency room with atypical chest pain. Patient describes pain under left breast with a stabbing sensation. Patient states that it took his breath away and has been short of breath intermittently. Patient was being treated outpatient for upper respiratory versus pneumonia. Patient has been taking Levaquin and reports muscle and tendon tenderness but has improved since this morning. Antibiotics will be discontinued, chest x-ray was clear. Patient has an extensive medical history including atrial fibrillation on eliquis, COPD, heart failure, coronary artery disease, GERD, hyperlipidemia, hypertension, anxiety, depression, sleep apnea, AICD placement, heart cath with stents. First troponin was negative, EKG was negative for any ST elevation. Patient will be admitted to observation, with cardiology consult. Patient has appointment with Dr. Monsalve on Saturday. Review of Systems Constitutional: Denies chills, Denies fever Ears, nose, mouth and throat: Reports vertigo, Denies headache Cardiovascular: Reports chest pain, Reports dyspnea on exertion, Reports edema, Reports irregular heart beat, Reports lightheadedness, Reports shortness of breath, Denies palpitations, Denies syncope Respiratory: Reports cough, Reports cough with sputum, Reports dyspnea Gastrointestinal: Reports bloating, Denies abdominal pain, Denies diarrhea, Denies nausea, Denies vomiting Genitourinary: Denies dysuria, Denies genital pain, Denies urinary retention Musculoskeletal: Denies leg numbness/tingling, Denies muscle weakness, Denies neck stiffness Integumentary: Denies change in hair/nails, Denies wounds Neurological: Denies confusion, Denies headaches, Denies visual changes Psychiatric: Denies anxiety, Denies depression Endocrine: Reports fatigue, Denies nocturia Hematologic/Lymphatic: Denies lymphedema Allergic/Immunologic: Denies angioedema, Denies wheezing Past Medical History Past Medical History: Atrial Fibrillation, Asthma, Coronary Artery Disease (CAD), Heart Failure, COPD, CVA/TIA, GERD/Reflux, Hearing Disorder / Deafness, Hyperlipidemia, Hypertension, Pneumonia, Sleep Apnea/CPAP/BIPAP, Syncope Additional Past Medical History / Comment(s): Benign polyps removed, PVC's, cardiomyopathy, 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 Stovall, gout bilateral feet, occasional numbness L leg/L great toe, hx of PHIL with CPAP but no longer an issue since wt. 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 History of Any Multi-Drug Resistant Organisms: None Reported Past Surgical History: AICD, Cholecystectomy, Heart Catheterization, Heart Catheterization With Stent, Hernia Repair, Pacemaker, Tonsillectomy Additional Past Surgical History / Comment(s): 07/24/14 EGD/colonoscopy with polypectomy/bx, 2005 AICD/2014 AICD changed to medtronic, 2002 Cardiac stent in [place], 2007 cardiac cath [facility], upper teeth extracted for denture, L ear has tube, R ear plugged, cyst removed L eyelid, bilateral cataract removal, L ganglion cyst removal, L/R inguinal hernia repairs with mesh, penile implant. Past Anesthesia/Blood Transfusion Reactions: No Reported Reaction Date of Last Stent Placement:: 2002 Type of Cardiac Device: AICD Device Placement Date:: 2014 Past Psychological History: Anxiety, Depression Smoking Status: Former smoker Past Alcohol Use History: Occasional Past Drug Use History: None Reported - Past Family History Father Family Medical History: Coronary Artery Disease (CAD), Pneumonia Additional Family Medical History / Comment(s): Father of pneumonia at the age of 82 yrs. Mother Family Medical History: Liver Disease, Renal Disease Additional Family Medical History / Comment(s): father passed after a bout with pneumonia Medications and Allergies Home Medications Medication Instructions Recorded Confirmed Type Furosemide [Lasix] 20 mg PO DAILY 04/01/14 06/16/21 History Mirtazapine 45 mg PO 04/01/14 06/16/21 History Omeprazole 40 mg PO AC-BRKFST 04/01/14 06/16/21 History QUEtiapine [SEROquel] 200 mg PO BID 04/01/14 06/16/21 History Spironolactone [Aldactone] 25 mg PO DAILY 04/01/14 06/16/21 History Budesonide/Formoterol Fumarate 2 puff INHALATION RT-BID 07/20/14 06/16/21 History [Symbicort 160-4.5 Mcg Inhaler] Citalopram Hydrobromide [CeleXA] 10 mg PO DAILY 07/20/14 06/16/21 History Levocetirizine Dihydrochloride 5 mg PO DAILY 07/20/14 06/16/21 History Montelukast [Singulair] 10 mg PO HS 07/20/14 06/16/21 History Apixaban [Eliquis] 5 mg PO BID 06/02/20 06/16/21 History Atorvastatin [Lipitor] 20 mg PO DAILY 06/02/20 06/16/21 History Aspirin 81 mg PO DAILY #30 chewable 06/04/20 06/16/21 Rx Nitroglycerin Sl Tabs [Nitrostat] 0.4 mg SL Q5M PRN 06/06/20 06/16/21 History Albuterol Inhaler [Ventolin Hfa 2 puff INHALATION RT-QID PRN 05/29/21 06/16/21 History Inhaler] Carvedilol [Coreg] 12.5 mg PO BID-W/MEALS 05/29/21 06/16/21 History Docusate [Colace] 100 mg PO DAILY 05/29/21 06/16/21 History Verapamil HCl [Verapamil Sr] 120 mg PO DAILY 05/29/21 06/16/21 History Doxepin [SINEquan] 25 mg PO HS cap 06/06/21 06/16/21 Rx Losartan [Cozaar] 50 mg PO DAILY #30 tab 06/06/21 06/16/21 Rx Tamsulosin [Flomax] 0.4 mg PO PC-BRKFST #30 cap 06/06/21 06/16/21 Rx Fluticasone Nasal [place] [Flonase 2 spr EA NOSTRIL BID PRN 06/16/21 06/16/21 History Nasal [place]] Allergies Allergy/AdvReac Type Severity Reaction Status Date / Time Barbiturates Allergy Anaphylaxis Verified 06/16/21 10:21 levofloxacin [From Levaquin] Allergy Dyspnea & Verified 06/16/21 10:21 Leg Swelling and Pain & Headache Physical Exam Vitals: Vital Signs Temp Pulse Pulse Resp BP Pulse Ox 06/16/21 10:54 63 18 163/81 99 06/16/21 09:44 66 06/16/21 09:04 98.2 F 65 18 158/68 98 Intake and Output 06/15/21 06/16/21 06/16/21 22:59 06:59 14:59 Other: Weight 102.965 kg - Constitutional General appearance: average body habitus, no acute distress - EENT Eyes: EOMI, PERRLA ENT: normal oropharynx - Respiratory Respiratory: bilateral: diminished - Cardiovascular Heart rate: 70 Rhythm: irregularly irregular Heart sounds: normal: S1, S2 foot Peripheral Edema: bilateral: Trace radial pulse Peripheral Pulses: bilateral: Normal - Gastrointestinal General gastrointestinal: distended, normal bowel sounds, soft - Integumentary Integumentary: normal - Neurologic Neurologic: CNII-XII intact - Musculoskeletal Musculoskeletal: generalized weakness - Psychiatric Psychiatric: A&O x's 3, appropriate affect, intact judgment & insight Results CBC & Chem 7: 06/16/21 09:38 06/16/21 09:38 Labs: Abnormal Lab Results - Last 24 Hours (Table) 06/16/21 06/16/21 Range/Units 09:38 09:38 Hgb 12.9 L (13.0-17.5) gm/dL Sodium 136 L (137-145) mmol/L Chloride 108 H (98-107) mmol/L Carbon Dioxide 20 L (22-30) mmol/L Glucose 104 H (74-99) mg/dL Chest x-ray: report reviewed Thrombosis Risk Factor Assmnt - DVT/VTE Prophylaxis DVT/VTE Prophylaxis: Pharmacologic Prophylaxis ordered - Choose All That Apply Any of the Below Risk Factors Present?: Yes Each Factor Represents 1 point: Obesity (BMI >25) Other Risk Factors: Yes Each Risk Factor Represents 2 Points: Age 61-74 years Thrombosis Risk Factor Assessment Total Risk Factor Score: 3 Thrombosis Risk Factor Assessment Level: Moderate Risk Assessment and Plan Assessment: Chest pain, rule out acute coronary syndrome Dyspnea with exertion Ischemic cardiomyopathy status post AICD Hypertension Atrial fibrillation with controlled ventricular response, on Eliquis Hyperlipidemia History of coronary artery disease status post stent placement Diverticulosis Anxiety Plan: Cardiology consult for chest pain Pulmonary function test ordered for dyspnea Continue following serial troponin levels Monitor patient for any new muscle or tendon pain Continue monitoring vital signs Further recommendations to come based on patient's clinical course Time with Patient: Greater than 30
[2021-06-16 13:15] LABS: Albumin 3.3 g/dL (3.5-5.0); Bilirubin, Delta 0.1 mg/dL (0.0-0.2); Bilirubin,Unconjugated 0.2 mg/dL (0.0-1.1); Magnesium 1.8 mg/dL (1.6-2.3); Total Bilirubin 0.3 mg/dL (0.2-1.3)
[2021-06-16] MEDS: carvediloL 12.5 MG TAB PO SCH (16:34)
[2021-06-16] MEDS: SYMBICORT 160-4.5 MCG INHALER INHALATION SCH (20:13)
[2021-06-16] MEDS: ALBUTEROL NEBULIZED 2.5 MG/3 ML INHALATION PRN (20:13)
[2021-06-16] MEDS: MONTELUKAST 10 MG TAB PO SCH (20:52)
[2021-06-16] MEDS: APIXABAN 5 MG TAB PO SCH (20:52)
[2021-06-16] MEDS: DOXEPIN 25 MG CAP PO SCH (20:52)
[2021-06-16] MEDS: MIRTAZAPINE 45 MG TABLET PO SCH (20:52)
[2021-06-16] MEDS: QUEtiapine 200 MG TAB PO SCH (20:52)
[2021-06-16] MEDS: ACETAMINOPHEN TAB 325 MG TAB PO PRN (20:52)
[2021-06-16] MEDS: guaiFENesin 600 MG TABLET.ER PO SCH (20:54)
[2021-06-16] MEDS: BENZONATATE 100 MG CAP PO PRN (23:37)
[2021-06-17] MEDS ORDERED: PANTOPRAZOLE 40 MG TABLET PO SCH (07:30)
[2021-06-17] MEDS: SYMBICORT 160-4.5 MCG INHALER INHALATION SCH ×2 (08:15→19:11)
[2021-06-17] MEDS: FUROSEMIDE 20 MG TAB PO SCH (08:20)
[2021-06-17] MEDS: ASPIRIN 325 MG TAB PO SCH ×2 (08:43→12:52)
[2021-06-17] MEDS: SPIRONOLACTONE 25 MG TAB PO SCH (08:43)
[2021-06-17] MEDS: guaiFENesin 600 MG TABLET.ER PO SCH ×2 (08:44→20:44)
[2021-06-17] MEDS: LORATADINE 10 MG TAB PO SCH (08:44)
[2021-06-17] MEDS: TAMSULOSIN 0.4 MG CAP.ER.24H PO SCH (08:44)
[2021-06-17] MEDS: DOCUSATE 100 MG CAP PO SCH (08:44)
[2021-06-17] MEDS: LOSARTAN 50 MG TAB PO SCH (08:45)
[2021-06-17] MEDS: VERAPAMIL SR 120 MG TABLET.ER PO SCH (08:45)
[2021-06-17] MEDS: ATORVASTATIN 20 MG TAB PO SCH (08:45)
[2021-06-17] MEDS: APIXABAN 5 MG TAB PO SCH ×2 (08:45→20:43)
[2021-06-17] MEDS: CITALOPRAM HYDROBROMIDE 10 MG TAB PO SCH (08:45)
[2021-06-17 09:19] LABS: Chol/HDL Ratio 3.91 Ratio; LDL Cholesterol,Calculated 77.9 mg/dL (0.0-131.0)
[2021-06-17] MEDS: carvediloL 12.5 MG TAB PO SCH ×2 (12:52→18:12)
[2021-06-17] MEDS: ASPIRIN 81 MG PO SCH (12:53)
[2021-06-17] MEDS: QUEtiapine 200 MG TAB PO SCH ×2 (12:53→20:44)
[2021-06-17] MEDS ORDERED: ALPRAZolam 0.25 MG TAB PO PRN (13:09)
--- NOTE | 2021-06-17 13:26 | US ---
EXAMINATION TYPE: US venous doppler duplex LE DATE OF EXAM: 06/17/2021 12:40 PM COMPARISON: NONE CLINICAL HISTORY: ro dvt rebecca leg stiffness . Bilateral leg pain, patient on blood thinners Exam done portable SIDE PERFORMED: Bilateral TECHNIQUE: The lower extremity deep venous system is examined utilizing real time linear array sonog dami with graded compression, doppler sonography and color-flow sonography. VESSELS IMAGED: Common Femoral Vein Deep Femoral Vein Greater Saphenous Vein * Femoral Vein Popliteal Vein Small Saphenous Vein * Proximal Calf Veins (* superficial vessels) Right Leg: Appears negative for DVT Left Leg: Appears negative for DVT IMPRESSION: No evidence of DVT in either lower extremity.
--- NOTE | 2021-06-17 13:47 | P.CRDCN ---
History of Present Illness Consult date: 06/17/21 Requesting physician: Hudson Moran Reason for Consult (text): chest pain Chief complaint: chest pain History of present illness: This is a pleasant 71-year-old gentleman who follows in the office with Dr. Monsalve. He has a history of CAD with previous PCI, ischemic cardiomyopathy with AICD, hypertension, hyperlipidemia, paroxysmal atrial fibrillation on anticoagulation, and recent hospitalization with GI bleed with colonoscopy showing likely diverticulitis and external hemorrhoids and anticoagulation has been resumed with no recurrence. He presented to the emergency department with complaints of chest discomfort lasting about 10 minutes with recurrence through the night lasting about 15 minutes received nitroglycerin which caused a headache but he feels the pain went away on its own. EKG on admission showed sinus mechanism with paced rhythm and PVCs. Troponin levels have been negative 3. Most recent echocardiogram was completed in the office in April of this year and showed an ejection fraction of 35-40% with global LV hypokinesis, mild AI, mild MR, [id number] TR and moderate pulmonary hypertension. Patient did undergo cardiac catheterization in June 2017 at [facility] which showed a 40% RCA stenosis which was proximal to patent stented segment and no significant disease noted in the LAD. Upon examination the patient is resting comfortably in bed. Denies any complaints of chest discomfort at this time. When asked he does feel the pain could be somewhat similar to what he felt prior to his stent many years ago however less severe and at this time the pain is reproducible with certain movements and worsened with deep inspiration. He's had no complaints of shortness of breath, palpitations, orthopnea, PND or edema. Past Medical History Past Medical History: Atrial Fibrillation, Asthma, Coronary Artery Disease (CAD), Heart Failure, COPD, CVA/TIA, GERD/Reflux, Hearing Disorder / Deafness, Hyperlipidemia, Hypertension, Pneumonia, Sleep Apnea/CPAP/BIPAP, Syncope Additional Past Medical History / Comment(s): Pt recently admitted to [facility] on 05/30/21 with acute lower GI bleed/urinary retention. He states after discharge he was diagnosed with pneumonia and was on antibiotic (levaquin) which he states caused an allergic reaction/edema legs and arms. 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 loss, fluid in ears which causes muffled sounds, migraines, bronchitis, small hiatal hernia. History of Any Multi-Drug Resistant Organisms: None Reported Past Surgical History: AICD, Cholecystectomy, Heart Catheterization, Heart Catheterization With Stent, Hernia Repair, Pacemaker, Tonsillectomy Additional Past Surgical History / Comment(s): 07/24/14 EGD/colonoscopy with polypectomy/bx and colonoscopy 06/01/21/polypectomy, 2005 AICD/2014 AICD changed to medtronic, internal cardioversion, 2002 Cardiac stent in [place], 2007 cardiac cath [facility], upper teeth extracted for denture, L ear has tube, cyst removed L eyelid, bilateral cataract removal, L ganglion cyst removal, L/R inguinal hernia repairs with mesh, penile implant. Past Anesthesia/Blood Transfusion Reactions: No Reported Reaction Date of Last Stent Placement:: 2002 Type of Cardiac Device: AICD Device Placement Date:: 2012 Smoking Status: Light tobacco smoker - Past Family History Father Family Medical History: Coronary Artery Disease (CAD), Pneumonia Additional Family Medical History / Comment(s): Father of pneumonia at the age of 82 yrs. Mother Family Medical History: Liver Disease, Renal Disease Additional Family Medical History / Comment(s): father passed after a bout with pneumonia Medications and Allergies Home Medications Medication Instructions Recorded Confirmed Type Furosemide [Lasix] 20 mg PO DAILY 04/01/14 06/16/21 History Mirtazapine 45 mg PO HS 04/01/14 06/16/21 History Omeprazole 40 mg PO AC-BRKFST 04/01/14 06/16/21 History QUEtiapine [SEROquel] 200 mg PO BID 04/01/14 06/16/21 History Spironolactone [Aldactone] 25 mg PO DAILY 04/01/14 06/16/21 History Budesonide/Formoterol Fumarate 2 puff INHALATION RT-BID 07/20/14 06/16/21 History [Symbicort 160-4.5 Mcg Inhaler] Citalopram Hydrobromide [CeleXA] 10 mg PO DAILY 07/20/14 06/16/21 History Levocetirizine Dihydrochloride 5 mg PO DAILY 07/20/14 06/16/21 History Montelukast [Singulair] 10 mg PO HS 07/20/14 06/16/21 History Apixaban [Eliquis] 5 mg PO BID 06/02/20 06/16/21 History Atorvastatin [Lipitor] 20 mg PO DAILY 06/02/20 06/16/21 History Aspirin 81 mg PO DAILY #30 chewable 06/04/20 06/16/21 Rx Nitroglycerin Sl Tabs [Nitrostat] 0.4 mg SL Q5M PRN 06/06/20 06/16/21 History Albuterol Inhaler [Ventolin Hfa 2 puff INHALATION RT-QID PRN 05/29/21 06/16/21 History Inhaler] Carvedilol [Coreg] 12.5 mg PO BID-W/MEALS 05/29/21 06/16/21 History Docusate [Colace] 100 mg PO DAILY 05/29/21 06/16/21 History Verapamil HCl [Verapamil Sr] 120 mg PO DAILY 05/29/21 06/16/21 History Doxepin [SINEquan] 25 mg PO HS cap 06/06/21 06/16/21 Rx Losartan [Cozaar] 50 mg PO DAILY #30 tab 06/06/21 06/16/21 Rx Tamsulosin [Flomax] 0.4 mg PO PC-BRKFST #30 cap 06/06/21 06/16/21 Rx Fluticasone Nasal [place] [Flonase 2 spr EA NOSTRIL BID PRN 06/16/21 06/16/21 History Nasal [place]] Allergies Allergy/AdvReac Type Severity Reaction Status Date / Time Barbiturates Allergy Anaphylaxis Verified 06/16/21 10:21 levofloxacin [From Levaquin] Allergy Dyspnea & Verified 06/16/21 10:21 Leg Swelling and Pain & Headache Physical Exam Vitals: Vital Signs Temp Pulse Pulse Resp BP BP Pulse Ox 06/17/21 07:00 97.8 F 50 L 18 132/89 100 06/17/21 02:00 97.6 F 68 20 151/82 100 06/16/21 23:27 68 06/16/21 20:21 62 06/16/21 20:15 68 94 L 06/16/21 19:49 98.2 F 73 22 161/89 06/16/21 15:00 98.0 F 74 20 158/82 98 06/16/21 14:00 98.2 F 55 L 20 143/80 98 06/16/21 13:00 59 L 19 143/80 99 06/16/21 12:20 62 15 158/88 98 06/16/21 12:12 98 06/16/21 10:54 63 18 163/81 99 06/16/21 09:44 66 06/16/21 09:04 98.2 F 65 18 158/68 98 Intake and Output 06/16/21 06/17/21 06/17/21 22:59 06:59 14:59 Intake Total 10 Output Total 600 700 Balance -590 -700 Intake: Oral 10 Output: Urine 600 700 Other: Voiding Method Toilet Urinal # Voids 2 3 PHYSICAL EXAMINATION: This is a 71-year-old male in no apparent distress at the time of my examination. VITAL SIGNS: Blood pressure 132/89, heart rate 50, respirations 18, temp 97.8F. Patient is 100 % on room air. HEENT: Head is atraumatic, normocephalic. Pupils are equal, round. Sclerae anicteric. Conjunctivae are clear. Mucous membranes of the mouth are moist. Neck is supple. There is no elevated jugular venous pressure. No carotid bruit is heard. CHEST EXAMINATION: Clear to auscultation bilaterally. No wheezes rales or rhonchi. Respirations even and nonlabored. HEART EXAMINATION: Heart regular, positive S1 and S2. No S3. No S4. With a systolic murmur. ABDOMEN: Soft, nontender. Bowel sounds are heard. No organomegaly noted. EXTREMITIES: 2+ peripheral pulses with no evidence of peripheral edema and no calf tenderness noted. NEUROLOGIC EXAMINATION: Patient is awake, alert and oriented x3. Results 06/16/21 09:38 06/16/21 09:38 Cardiac Enzymes 06/16/21 06/16/21 06/16/21 Range/Units 09:38 12:29 12:29 AST 20 (17-59) U/L Troponin I <0.012 <0.012 (0.000-0.034) ng/mL 06/16/21 Range/Units 13:54 AST (17-59) U/L Troponin I <0.012 (0.000-0.034) ng/mL Coagulation 06/16/21 Range/Units 09:38 PT 9.8 (9.0-12.0) sec APTT 25.2 (22.0-30.0) sec CBC 06/16/21 Range/Units 09:38 WBC 9.0 (3.8-10.6) k/uL RBC 4.34 (4.30-5.90) m/uL Hgb 12.9 L (13.0-17.5) gm/dL Hct 39.0 (39.0-53.0) % Plt Count 344 (150-450) k/uL Comprehensive Metabolic Panel 06/16/21 06/16/21 Range/Units 09:38 12:29 Sodium 136 L (137-145) mmol/L Potassium 3.7 (3.5-5.1) mmol/L Chloride 108 H (98-107) mmol/L Carbon Dioxide 20 L (22-30) mmol/L BUN 11 (9-20) mg/dL Creatinine 0.77 (0.66-1.25) mg/dL Glucose 104 H (74-99) mg/dL Calcium 8.8 (8.4-10.2) mg/dL Unconjugated Bilirubin 0.2 (0.0-1.1) mg/dL AST 20 (17-59) U/L ALT 29 (4-49) U/L Alkaline Phosphatase 92 (38-126) U/L Total Protein 6.0 L (6.3-8.2) g/dL Albumin 3.3 L (3.5-5.0) g/dL Current Medications Generic Name Dose Route Start Last Admin Trade Name Freq PRN Reason Stop Dose Admin Acetaminophen 650 mg 06/16/21 12:20 06/16/21 20:52 Acetaminophen Tab 325 Mg Tab PO 650 mg Q4HR PRN Administration Fever and/ or Mild Pain Albuterol Sulfate 2.5 mg 06/16/21 12:14 06/16/21 20:13 Albuterol Nebulized 2.5 Mg/3 Ml INHALATION 2.5 mg RT-QID PRN Administration Shortness Of Breath Apixaban 5 mg 06/16/21 21:00 06/17/21 08:45 Apixaban 5 Mg Tab PO 5 mg BID [facility] Administration Protocol Aspirin 81 mg 06/17/21 09:00 Aspirin 81 Mg PO DAILY [facility] Atorvastatin Calcium 20 mg 06/17/21 09:00 06/17/21 08:45 Atorvastatin 20 Mg Tab PO 20 mg DAILY [facility] Administration Benzonatate 200 mg 06/16/21 12:20 06/16/21 23:37 Benzonatate 100 Mg Cap PO 200 mg TID PRN Administration Cough Budesonide/Formoterol Fumarate 2 puff 06/16/21 20:00 06/17/21 08:15 Symbicort 160-4.5 Mcg Inhaler INHALATION 2 puff RT-BID [facility] Administration Carvedilol 12.5 mg 06/16/21 17:30 06/16/21 16:34 Carvedilol 12.5 Mg Tab PO 12.5 mg BID-W/MEALS [facility] Administration Citalopram Hydrobromide 10 mg 06/17/21 09:00 06/17/21 08:45 Citalopram Hydrobromide 10 Mg Tab PO 10 mg DAILY [facility] Administration Docusate Sodium 100 mg 06/17/21 09:00 06/17/21 08:44 Docusate 100 Mg Cap PO 100 mg DAILY [facility] Administration Doxepin HCl 25 mg 06/16/21 21:00 06/16/21 20:52 Doxepin 25 Mg Cap PO 25 mg HS [facility] Administration Fluticasone Propionate 2 spray 06/16/21 12:14 Fluticasone 50mcg/[place] Nasal 16gm EA NOSTRIL BID PRN Allergy Symptoms Furosemide 20 mg 06/17/21 09:00 Furosemide 20 Mg Tab PO DAILY [facility] Guaifenesin 1,200 mg 06/16/21 21:00 06/17/21 08:44 Guaifenesin 600 Mg Tablet.Er PO 1,200 mg Q12HR [facility] Administration Loratadine 10 mg 06/17/21 09:00 06/17/21 08:44 Loratadine 10 Mg Tab PO 10 mg DAILY [facility] Administration Losartan Potassium 50 mg 06/17/21 09:00 06/17/21 08:45 Losartan 50 Mg Tab PO 50 mg DAILY [facility] Administration Mirtazapine 45 mg 06/16/21 21:00 06/16/21 20:52 Mirtazapine 45 Mg Tablet PO 45 mg HS [facility] Administration Montelukast Sodium 10 mg 06/16/21 21:00 06/16/21 20:52 Montelukast 10 Mg Tab PO 10 mg HS [facility] Administration Nitroglycerin 0.4 mg 06/16/21 12:12 06/16/21 23:04 Nitroglycerin Sl Tabs 0.4 Mg Tab SUBLINGUAL 0.4 mg Q5M PRN Administration Chest Pain Pantoprazole Sodium 40 mg 06/17/21 07:30 06/17/21 08:44 Pantoprazole 40 Mg Tablet PO 40 mg AC-BRKFST [facility] Administration Quetiapine Fumarate 200 mg 06/16/21 21:00 06/16/21 20:52 Quetiapine 200 Mg Tab PO 200 mg BID [facility] Administration Spironolactone 25 mg 06/17/21 09:00 06/17/21 08:43 Spironolactone 25 Mg Tab PO 25 mg DAILY [facility] Administration Tamsulosin HCl 0.4 mg 06/17/21 08:30 06/17/21 08:44 Tamsulosin 0.4 Mg Cap.Er.24h PO 0.4 mg PC-BRKFST [facility] Administration Verapamil HCl 120 mg 06/17/21 09:00 06/17/21 08:45 Verapamil Sr 120 Mg Tablet.Er PO 120 mg DAILY [facility] Administration Intake and Output 06/16/21 06/17/21 06/17/21 22:59 06:59 14:59 Intake Total 10 Output Total 600 700 Balance -590 -700 Intake: Oral 10 Output: Urine 600 700 Other: Voiding Method Toilet Urinal # Voids 2 3 06/16/21 09:38 06/16/21 09:38 Assessment and Plan Assessment: #1 symptoms of chest discomfort, reproducible with certain movements and worsened with deep inspiration, acute coronary event has been ruled out #2 history of CAD with prior PCI to RCA #3 ischemic cardiomyopathy status post AICD #4 paroxysmal atrial fibrillation, currently maintaining sinus mechanism, anticoagulated #5 hypertension #6 recent GI bleed, resolved Plan: On cardiology's perspective and acute coronary event has been ruled out. From our standpoint the patient is stable for discharge home. He will follow-up in the office as an outpatient with Dr. Monsalve. 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 Patient was seen and examined.
--- NOTE | 2021-06-17 15:04 | HP ---
HISTORY AND PHYSICAL CHIEF COMPLAINTS: Chest pain, swelling of the legs and shortness of breath. HISTORY OF PRESENT ILLNESS: This 71-year-old gentleman with a past medical history of asthma, atrial fibrillation, CAD, COPD, being followed by Dr. Hudson Moran in the outpatient setting, was complaining of bilateral leg swelling as well as shortness of breath and some chest pains, abdominal discomfort. The patient was recently admitted with acute lower GI bleeding and urinary retention. The patient apparently was also diagnosed with pneumonia and was on antibiotics recently. There is no history of any fever, rigors or chills. No history of headache, loss of consciousness, seizures. Labs on admission showed sodium 136; otherwise, venous Doppler is pending at this time. Chest x-ray reviewed personally by me showed no evidence of any acute pulmonary abnormality. PAST MEDICAL HISTORY: History of recent pneumonia, history of recent GI bleed, asthma, atrial fibrillation, CAD. HOME MEDICATIONS: Reviewed. They include , Flomax. Doses and other medications are reviewed. ALLERGIES: include LEVAQUIN. FAMILY HISTORY: Liver and kidney disease. SOCIAL HISTORY: Smoking. Occasional alcohol intake. REVIEW OF SYSTEMS: Fourteen-point review of systems negative except as mentioned earlier. PHYSICAL EXAMINATION: Pulse is 50, blood pressure ntd, respiration 18. HEENT: Conjunctivae normal. NECK: No jugular venous distention. CARDIOVASCULAR: S1, S2 muffled. RESPIRATION: Breath sounds diminished at the bases. A few scattered rhonchi. ABDOMEN: Soft, nontender. No mass palpable. LEGS: Minimal edema. NERVOUS SYSTEM: Higher functions as mentioned earlier. Moves all 4 limbs. No focal motor or sensory deficit. LYMPHATICS: No lymph node palpable in neck, axillae or groin. SKIN: No ulcer, rash, bleeding. JOINTS: No active deforming arthropathy. LABS: CBC within normal limits. Sodium 136. BNP is 258. ASSESSMENT: 1. Chest pain, shortness of breath; rule out angina. 2. Bilateral leg swelling; rule out deep vein thrombosis. 3. History of recent pneumonia, on antibiotics. 4. Hyponatremia. 5. History of recent gastrointestinal bleed. 6. History of asthma. 7. History atrial fibrillation. 8. History of coronary artery disease. 9. Chronic obstructive pulmonary disease. 10.Cerebrovascular accident, transient ischemic attack. RECOMMENDATIONS AND DISCUSSION: In this 71-year-old gentleman who presented with multiple complex medical issues, at this time I recommend to continue the current medications. Continue symptomatic treatment. Otherwise, the exact etiology of multitude of symptoms is unknown at this time. Will consult Cardiology. Resume the home medications. Provide symptomatic treatment. Ultrasound of the legs to rule out the possibility of bilateral DVT. Coronary syndrome workup. Further recommendations to follow. A copy of this dictation is being forwarded to Dr. Moran. RITU / KATARINA: [id number] / [id number]
[2021-06-17] MEDS: PANTOPRAZOLE 40 MG/10 ML VIAL IVP SCH ×2 (15:45→20:52)
[2021-06-17] MEDS: ALBUTEROL NEBULIZED 2.5 MG/3 ML INHALATION PRN (19:12)
[2021-06-17] MEDS: DOXEPIN 25 MG CAP PO SCH (20:44)
[2021-06-17] MEDS: MIRTAZAPINE 45 MG TABLET PO SCH (20:44)
[2021-06-17] MEDS: MONTELUKAST 10 MG TAB PO SCH (20:44)
[2021-06-17] MEDS: HYDROcodone/APAP 5-325MG 1 EACH TAB PO PRN (20:45)
[2021-06-17] MEDS: BENZONATATE 100 MG CAP PO PRN (20:46)
[2021-06-18] MEDS: HYDROcodone/APAP 5-325MG 1 EACH TAB PO PRN ×2 (06:19→19:55)
[2021-06-18] MEDS: SYMBICORT 160-4.5 MCG INHALER INHALATION SCH ×2 (07:52→19:50)
[2021-06-18] MEDS: PANTOPRAZOLE 40 MG/10 ML VIAL IVP SCH ×2 (08:33→19:54)
[2021-06-18] MEDS: APIXABAN 5 MG TAB PO SCH ×2 (08:37→19:54)
[2021-06-18] MEDS: VERAPAMIL SR 120 MG TABLET.ER PO SCH (08:37)
[2021-06-18] MEDS: guaiFENesin 600 MG TABLET.ER PO SCH ×2 (08:38→19:54)
[2021-06-18] MEDS: SPIRONOLACTONE 25 MG TAB PO SCH (08:38)
[2021-06-18] MEDS: ATORVASTATIN 20 MG TAB PO SCH (08:38)
[2021-06-18] MEDS: LORATADINE 10 MG TAB PO SCH (08:38)
[2021-06-18] MEDS: QUEtiapine 200 MG TAB PO SCH ×2 (08:39→19:56)
[2021-06-18] MEDS: CITALOPRAM HYDROBROMIDE 10 MG TAB PO SCH (08:39)
[2021-06-18] MEDS: FUROSEMIDE 20 MG TAB PO SCH (08:40)
[2021-06-18] MEDS: carvediloL 12.5 MG TAB PO SCH ×2 (08:40→18:53)
[2021-06-18] MEDS: LOSARTAN 50 MG TAB PO SCH (08:40)
[2021-06-18] MEDS: TAMSULOSIN 0.4 MG CAP.ER.24H PO SCH (08:40)
[2021-06-18] MEDS: ASPIRIN 81 MG PO SCH (08:40)
[2021-06-18] MEDS: DOCUSATE 100 MG CAP PO SCH (08:41)
--- NOTE | 2021-06-18 10:45 | P.PN ---
Subjective Progress Note Date: 06/18/21 This is a pleasant 71-year-old gentleman who follows in the office with Dr. Monsalve. He has a history of CAD with previous PCI, ischemic cardiomyopathy with AICD, hypertension, hyperlipidemia, paroxysmal atrial fibrillation on anticoagulation, and recent hospitalization with GI bleed with colonoscopy showing likely diverticulitis and external hemorrhoids and anticoagulation has been resumed with no recurrence. He presented to the emergency department with complaints of chest discomfort lasting about 10 minutes with recurrence through the night lasting about 15 minutes received nitroglycerin which caused a headache but he feels the pain went away on its own. EKG on admission showed sinus mechanism with paced rhythm and PVCs. Troponin levels have been negative 3. Most recent echocardiogram was completed in the office in April of this year and showed an ejection fraction of 35-40% with global LV hypokinesis, mild AI, mild MR, [id number] TR and moderate pulmonary hypertension. Patient did undergo cardiac catheterization in June 2017 at [facility] which showed a 40% RCA stenosis which was proximal to patent stented segment and no significant disease noted in the LAD. Upon examination the patient is resting comfortably in bed. Denies any complaints of chest discomfort at this time. When asked he does feel the pain could be somewhat similar to what he felt prior to his stent many years ago however less severe and at this time the pain is reproducible with certain movements and worsened with deep inspiration. 06/18/2021 She was seen and examined this morning with significantly in bed. Complains of having watery diarrhea. Also continues to complain of some chest discomfort but in varying areas of the chest and not related to activity. He did undergo lower external E duplex to rule out DVT due to some complaints of swelling he had yesterday when seen by primary and this was negative for DVT. Vital signs are stable and he's afebrile. Objective - Vital Signs Vital signs: Vital Signs Temp 98.4 F 06/18/21 07:00 Pulse 76 06/18/21 08:37 Resp 18 06/18/21 07:00 BP 157/75 06/18/21 07:00 Pulse Ox 98 06/18/21 07:00 Intake & Output 06/17/21 06/18/21 06/18/21 18:59 06:59 18:59 Intake Total 360 450 Output Total 1250 900 Balance -890 -450 Intake: Oral 360 450 Output: Urine 1250 900 Other: # Voids 4 2 - Exam HEENT: Head is atraumatic, normocephalic. Pupils are equal, round. Sclerae an icteric. Conjunctivae are clear. Mucous membranes of the mouth are moist. Neck is supple. There is no elevated jugular venous pressure. No carotid bruit is heard. CHEST EXAMINATION: Clear to auscultation bilaterally. No wheezes rales or rhonchi. Respirations even and nonlabored. HEART EXAMINATION: Heart regular, positive S1 and S2. No S3. No S4. With a systolic murmur. ABDOMEN: Soft, nontender. Bowel sounds are heard. No organomegaly noted. EXTREMITIES: 2+ peripheral pulses with no evidence of peripheral edema and no calf tenderness noted. NEUROLOGIC EXAMINATION: Patient is awake, alert and oriented x3. - Labs CBC & Chem 7: 06/16/21 09:38 06/16/21 09:38 Labs: Abnormal Lab Results - Last 24 Hours (Table) 06/16/21 Range/Units 09:38 Triglycerides 191.00 H (0.00-149.00) mg/dL HDL Cholesterol 39.90 L (40.00-60.00) mg/dL Assessment and Plan Assessment: #1 symptoms of chest discomfort, reproducible with certain movements and worsened with deep inspiration, acute coronary event has been ruled out #2 history of CAD with prior PCI to RCA #3 ischemic cardiomyopathy status post AICD #4 paroxysmal atrial fibrillation, currently maintaining sinus mechanism, anticoagulated #5 hypertension #6 recent GI bleed, resolved Plan: From cardiology's perspective an acute coronary event has been ruled out. From our standpoint the patient is stable for discharge home. He will follow-up in the office as an outpatient with Dr. Monsalve. SHEET MANAGER note has been reviewed, I agree with a documented findings and plan of care. Patient was seen and examined.
[2021-06-18 11:50] LABS: Basophils # (A) 0.01 X 10*3/uL (0.00-0.10); Basophils % (A) 0.1 %; Eosinophils # (A) 0.21 X 10*3/uL (0.04-0.35); Eosinophils % (A) 2.1 %; HCT 41.4 % (39.6-50.0); HGB 12.7 g/dL (13.0-17.0); Immature Grans, Automated 0.6 %; Lymphocytes # (A) 1.14 X 10*3/uL (0.90-5.00); Lymphocytes % (A) 11.5 %; MCH 28.2 pg (27.0-32.0); MCHC 30.7 g/dL (32.0-37.0); MCV 91.8 fL (80.0-97.0); Mean Platelet Volume 10.1 fL (9.5-12.2); Monocytes # (A) 0.62 X 10*3/uL (0.20-1.00); Monocytes % (A) 6.3 %; NRBC Per 100 WBC 0 /100 WBCS (0.0-0.0); Neutrophils # (A) 7.88 X 10*3/uL (1.80-7.70); Neutrophils % (A) 79.4 %; Platelet Count 322 X 10*3/uL (140-440); RBC 4.51 X 10*6/uL (4.40-5.60); RDW 14.5 % (11.5-14.5); WBC 9.92 X 10*3/uL (4.50-10.00)
[2021-06-18 12:00] LABS: Albumin 3.7 g/dL (3.8-4.9); Albumin/Globulin Ratio 1.69 (1.60-3.17); Anion Gap 10.7 mmol/L (10.00-18.00); BUN/Creat Ratio 12.46 Ratio (12.00-20.00); Calcium 9.1 mg/dL (8.7-10.3); Carbon Dioxide 26.6 mmol/L (20.0-27.5); Globulin 2.2 g/dL (1.6-3.3); Non-African American GFR(CKD) 86.3 (60.0-200.0); Total Bilirubin 0.3 mg/dL (0.30-1.20); Total Protein 5.8 g/dL (6.2-8.2)
[2021-06-18] MEDS: ACETAMINOPHEN TAB 325 MG TAB PO PRN (14:53)
--- NOTE | 2021-06-18 16:52 | PN ---
PROGRESS NOTE DATE OF SERVICE: 06/18/2021 This 71-year-old gentleman admitted with chest pain and multiple other symptomatology is being closely monitored at this time. The patient also had leg pain. Ultrasound of the leg was negative for any DVT. No chest pain. No palpitations. PHYSICAL EXAMINATION: Pulse is 97, blood pressure 157/74, respiration 18. CHEST: A few scattered rhonchi. CARDIOVASCULAR: S1, S2 muffled. ABDOMEN: Soft. NERVOUS SYSTEM: No focal deficit. LABS: Reviewed. ASSESSMENT: 1. Chest pain and shortness of breath; possibly asthma exacerbation. Angina less likely per Cardiology. 2. Bilateral leg swelling. DVT ruled out. 3. History of recent pneumonia, on antibiotics. 4. Hyponatremia. 5. History of recent gastrointestinal bleed. 6. History of asthma. 7. History of atrial fibrillation. 8. History of coronary artery disease. 9. Chronic obstructive pulmonary disease. 10.Cerebrovascular accident and transient ischemic attack. RECOMMENDATIONS AND DISCUSSION: I recommend to continue current medications, continue with the monitoring, symptomatic treatment. Otherwise at this time I recommend following with Cardiology. Continue with the bronchodilators, rest of the medications. Further recommendations to follow. MMODL / IJN: [id number] /
[2021-06-18] MEDS ORDERED: VANCOMYCIN IV PER PHARMACY 1 EACH MISC MISCELLANE PRN (17:42)
[2021-06-18] MEDS: SODIUM CHLORIDE 0.9% 1,000 ML IV SCH (18:08)
[2021-06-18] MEDS: PIPERACILLIN-TAZOBACTAM 3.375 GM in SODIUM CHLORIDE 0.9% 100 ML IVPB SCH (18:19)
[2021-06-18 18:39] LABS: Magnesium 1.9 mg/dL (1.6-2.3)
[2021-06-18 18:44] LABS: Basophils % (A) 0 %; Eosinophils # (A) 0.1 k/uL (0-0.7); Eosinophils % (A) 1 %; HCT 46.8 % (39.0-53.0); HGB 15.5 gm/dL (13.0-17.5); Lymphocytes # (A) 0.8 k/uL (1.0-4.8); Lymphocytes % (A) 9 %; MCH 30.2 pg (25.0-35.0); MCHC 33.1 g/dL (31.0-37.0); MCV 91.3 fL (80.0-100.0); Mean Platelet Volume 7.7; Monocytes # (A) 0.5 k/uL (0-1.0); Monocytes % (A) 6 %; Neutrophils # (A) 7.6 k/uL (1.3-7.7); Neutrophils % (A) 83 %; Platelet Count 328 k/uL (150-450); RBC 5.12 m/uL (4.30-5.90); RDW 14.3 % (11.5-15.5); WBC 9.1 k/uL (3.8-10.6)
[2021-06-18 18:49] LABS: African American GFR (CKD) >90 (>60 ml/min/1.73 sqM); Anion Gap 10 mmol/L; Blood Urea Nitrogen 13 mg/dL (9-20); Calcium 8.9 mg/dL (8.4-10.2); Carbon Dioxide 23 mmol/L (22-30); Chloride 100 mmol/L (98-107); Glucose 99 mg/dL (74-99); Non-African American GFR(CKD) 87 (>60 ml/min/1.73 sqM); Potassium 4.1 mmol/L (3.5-5.1); Sodium 133 mmol/L (137-145)
--- NOTE | 2021-06-18 18:54 | XR ---
EXAMINATION TYPE: XR chest 1V portable DATE OF EXAM: 06/18/2021 COMPARISON: 06/16/2021 HISTORY: Chest pain TECHNIQUE: Overview FINDINGS: There is left axillary pacemaker. There is slight blunting left costophrenic angle. There i s some mild linear density left lower lobe. Right lung is clear. No heart failure. IMPRESSION: There is evidence for some mild pleural reaction and atelectasis left lower lobe slightly increased compared to old exam. No heart failure.
[2021-06-18] MEDS: ALBUTEROL NEBULIZED 2.5 MG/3 ML INHALATION SCH (19:50)
[2021-06-18] MEDS: VANCOMYCIN 1,750 MG in SODIUM CHLORIDE 0.9% 500 ML 500 ML IVPB SCH (19:52)
[2021-06-18] MEDS: MONTELUKAST 10 MG TAB PO SCH (19:54)
[2021-06-18] MEDS: MIRTAZAPINE 45 MG TABLET PO SCH (19:55)
[2021-06-18] MEDS: DOXEPIN 25 MG CAP PO SCH (19:55)
[2021-06-19] MEDS: PIPERACILLIN-TAZOBACTAM 3.375 GM in SODIUM CHLORIDE 0.9% 100 ML IVPB SCH ×3 (01:48→18:00)
[2021-06-19] MEDS: SYMBICORT 160-4.5 MCG INHALER INHALATION SCH ×2 (08:04→19:54)
[2021-06-19] MEDS: ALBUTEROL NEBULIZED 2.5 MG/3 ML INHALATION SCH ×3 (08:04→19:53)
[2021-06-19] MEDS: SODIUM CHLORIDE 0.9% 1,000 ML IV SCH ×2 (08:40→16:58)
[2021-06-19] MEDS: DOCUSATE 100 MG CAP PO SCH (08:41)
[2021-06-19] MEDS: TAMSULOSIN 0.4 MG CAP.ER.24H PO SCH (08:47)
[2021-06-19] MEDS: SPIRONOLACTONE 25 MG TAB PO SCH (08:47)
[2021-06-19] MEDS: ATORVASTATIN 20 MG TAB PO SCH (08:47)
[2021-06-19] MEDS: PANTOPRAZOLE 40 MG/10 ML VIAL IVP SCH ×2 (08:47→20:34)
[2021-06-19] MEDS: VANCOMYCIN 1,750 MG in SODIUM CHLORIDE 0.9% 500 ML 500 ML IVPB SCH ×2 (08:47→20:33)
[2021-06-19] MEDS: guaiFENesin 600 MG TABLET.ER PO SCH ×2 (08:47→20:34)
[2021-06-19] MEDS: LORATADINE 10 MG TAB PO SCH (08:47)
[2021-06-19] MEDS: APIXABAN 5 MG TAB PO SCH ×2 (08:47→20:34)
[2021-06-19] MEDS: ASPIRIN 81 MG PO SCH (08:47)
[2021-06-19] MEDS: FUROSEMIDE 20 MG TAB PO SCH (08:47)
[2021-06-19] MEDS: VERAPAMIL SR 120 MG TABLET.ER PO SCH (08:48)
[2021-06-19] MEDS: QUEtiapine 200 MG TAB PO SCH ×2 (08:48→20:34)
[2021-06-19] MEDS: CITALOPRAM HYDROBROMIDE 10 MG TAB PO SCH (08:48)
[2021-06-19] MEDS ORDERED: SODIUM CHLORIDE 0.9% 250 ML IV ONE (14:09)
[2021-06-19] MEDS: LOSARTAN 50 MG TAB PO SCH (14:14)
[2021-06-19] MEDS: carvediloL 12.5 MG TAB PO SCH ×2 (14:14→17:00)
--- NOTE | 2021-06-19 14:26 | P.PN ---
Subjective Progress Note Date: 06/19/21 This is a 71-year-old male who was recently admitted with chest pain and multiple other symptomology is being closely monitored. Patient continues to have fevers, found to be hypotensive with current medications being held, and also having multiple episodes of diarrhea. Infectious disease consulted and pending. Patient was started on antibiotics in the form of Zosyn and vancomycin and C. diff testing was ordered and currently pending. Per nursing staff patient continues to be incontinent but having multiple episodes of liquid stools. Patient was evaluated by cardiology and has been cleared to follow-up in the outpatient setting although patient continues to report intermittent chest pain at this time. Patient denies shortness of breath. Patient reports to being lethargic as well. Review of systems: Constitutional: reports of fatigue, fever, Cardiovascular: reports intermittent chest pains and denies palpitations Respiratory: No reports of shortness of breath or cough GI: no reports of nausea, no reports of of vomiting, patient reports to multiple episodes of loose stool and abdominal discomfort : No reports of dysuria or retention Neurovascular: reports of generalized weakness Active Medications Acetaminophen (Acetaminophen Tab 325 Mg Tab) 650 mg PO Q4HR PRN PRN Reason: Fever and/ or Mild Pain Last Admin: 06/18/21 14:53 Dose: 650 mg Documented by: Hydrocodone Bitart/Acetaminophen (Hydrocodone/Apap 5-325mg 1 Each Tab) 1 each PO Q6HR PRN PRN Reason: Pain Last Admin: 06/18/21 19:55 Dose: 1 each Documented by: Albuterol Sulfate (Albuterol Nebulized 2.5 Mg/3 Ml) 2.5 mg INHALATION RT-QID PRN PRN Reason: Shortness Of Breath Last Admin: 06/17/21 19:12 Dose: 2.5 mg Documented by: Albuterol Sulfate (Albuterol Nebulized 2.5 Mg/3 Ml) 2.5 mg INHALATION RT-TID NOREEN Last Admin: 06/19/21 11:55 Dose: 2.5 mg Documented by: Alprazolam (Alprazolam 0.25 Mg Tab) 0.25 mg PO TID PRN PRN Reason: Anxiety Last Admin: 06/19/21 01:55 Dose: 0.25 mg Documented by: Apixaban (Apixaban 5 Mg Tab) 5 mg PO BID NOREEN; Protocol Last Admin: 06/19/21 08:47 Dose: 5 mg Documented by: Aspirin (Aspirin 81 Mg) 81 mg PO DAILY [facility] Last Admin: 06/19/21 08:47 Dose: 81 mg Documented by: Atorvastatin Calcium (Atorvastatin 20 Mg Tab) 20 mg PO DAILY [facility] Last Admin: 06/19/21 08:47 Dose: 20 mg Documented by: Benzonatate (Benzonatate 100 Mg Cap) 200 mg PO TID PRN PRN Reason: Cough Last Admin: 06/17/21 20:46 Dose: 200 mg Documented by: Budesonide/Formoterol Fumarate (Symbicort 160-4.5 Mcg Inhaler) 2 puff INHALATION RT-BID [facility] Last Admin: 06/19/21 08:04 Dose: Not Given Documented by: Carvedilol (Carvedilol 12.5 Mg Tab) 12.5 mg PO BID-W/MEALS [facility] Last Admin: 06/19/21 14:14 Dose: Not Given Documented by: Citalopram Hydrobromide (Citalopram Hydrobromide 10 Mg Tab) 10 mg PO DAILY [facility] Last Admin: 06/19/21 08:48 Dose: 10 mg Documented by: Docusate Sodium (Docusate 100 Mg Cap) 100 mg PO DAILY [facility] Last Admin: 06/19/21 08:41 Dose: Not Given Documented by: Doxepin HCl (Doxepin 25 Mg Cap) 25 mg PO HS [facility] Last Admin: 06/18/21 19:55 Dose: 25 mg Documented by: Fluticasone Propionate (Fluticasone 50mcg/[place] Nasal 16gm) 2 spray EA NOSTRIL BID PRN PRN Reason: Allergy Symptoms Furosemide (Furosemide 20 Mg Tab) 20 mg PO DAILY [facility] Last Admin: 06/19/21 08:47 Dose: 20 mg Documented by: Guaifenesin (Guaifenesin 600 Mg Tablet.Er) 1,200 mg PO Q12HR [facility] Last Admin: 06/19/21 08:47 Dose: 1,200 mg Documented by: Piperacillin Sod/Tazobactam (Sod 3.375 gm/ Sodium Chloride) 100 mls @ 25 mls/hr IVPB Q8H [facility]; Protocol Last Admin: 06/19/21 10:50 Dose: 25 mls/hr Documented by: Sodium Chloride (Saline 0.9%) 1,000 mls @ 100 mls/hr IV .Q10H [facility] Last Admin: 06/19/21 08:40 Dose: Not Given Documented by: Vancomycin HCl 1,750 mg/ (Sodium Chloride) 500 mls @ 167 mls/hr IVPB Q12H [facility] Last Admin: 06/19/21 08:47 Dose: 167 mls/hr Documented by: Sodium Chloride (Saline 0.9%) 250 mls @ 999 mls/hr IV .Q16M ONE Stop: 06/19/21 14:24 Last Admin: 06/19/21 14:14 Dose: 999 mls/hr Documented by: Loratadine (Loratadine 10 Mg Tab) 10 mg PO DAILY [facility] Last Admin: 06/19/21 08:47 Dose: 10 mg Documented by: Losartan Potassium (Losartan 50 Mg Tab) 50 mg PO DAILY [facility] Last Admin: 06/19/21 14:14 Dose: Not Given Documented by: Mirtazapine (Mirtazapine 45 Mg Tablet) 45 mg PO [facility] Last Admin: 06/18/21 19:55 Dose: 45 mg Documented by: Miscellaneous Information (Vancomycin Trough Due 1 Each Misc) 1 each MISCELLANE ONCE ONE Stop: 06/20/21 18:01 Montelukast Sodium (Montelukast 10 Mg Tab) 10 mg PO [facility] Last Admin: 06/18/21 19:54 Dose: 10 mg Documented by: Nitroglycerin (Nitroglycerin Sl Tabs 0.4 Mg Tab) 0.4 mg SUBLINGUAL Q5M PRN PRN Reason: Chest Pain Last Admin: 06/16/21 23:04 Dose: 0.4 mg Documented by: Pantoprazole Sodium (Pantoprazole 40 Mg/10 Ml Vial) 40 mg IVP BID [facility] Last Admin: 06/19/21 08:47 Dose: 40 mg Documented by: Quetiapine Fumarate (Quetiapine 200 Mg Tab) 200 mg PO BID [facility] Last Admin: 06/19/21 08:48 Dose: 200 mg Documented by: Spironolactone (Spironolactone 25 Mg Tab) 25 mg PO DAILY [facility] Last Admin: 06/19/21 08:47 Dose: 25 mg Documented by: Tamsulosin HCl (Tamsulosin 0.4 Mg Cap.Er.24h) 0.4 mg PO -BRKFST [facility] Last Admin: 06/19/21 08:47 Dose: 0.4 mg Documented by: Verapamil HCl (Verapamil Sr 120 Mg Tablet.Er) 120 mg PO DAILY [facility] Last Admin: 06/19/21 08:48 Dose: 120 mg Documented by: PHYSICAL EXAMINATION: GENERAL: The patient is alert and oriented x4, Well developed, well nourished. Ill-appearing currently sitting up in the chair HEENT: Pupils are round and equally reacting to light. EOMI. no scleral icterus. No conjunctival pallor. Normocephalic, atraumatic. No pharyngeal erythema. No thyromegaly. CARDIOVASCULAR: S1 and S2 muffled PULMONARY: diminished breath sounds bilaterally with scattered rhonchi noted. ABDOMEN: soft. mildly tender on exam. obese. distended, hyperactive bowel sounds. No palpable organomegaly. MUSCULOSKELETAL: No joint swelling or deformity. EXTREMITIES: No cyanosis, clubbing, or pedal edema. NEUROLOGICAL: Gross neurological examination did not reveal any focal deficits. Diffuse weakness SKIN: No rashes. Assessment: Chest pain and shortness of breath, possibly asthma exacerbation, angina less likely per cardiology Bilateral leg swelling, DVT ruled out Diarrhea, possibly gastritis History of recent pneumonia, on antibiotics Hyponatremia next line history of recent gastrointestinal bleed history of asthma History of atrial fibrillation History of coronary artery disease Chronic obstructive pulmonary disease CVA and TIA Plan: Recommend to continue with current medications and management. Patient has been seen and evaluated by cardiology recommending outpatient follow-up. Patient continues with fevers and hypotension and was started on antibiotics in the form of Vanco and Zosyn and will consult infectious disease which is currently pending. C. diff testing also ordered and discussed with the patient about obtaining a sample. Patient is currently incontinent at times and a brief. Patient's blood pressure on the lower side and current cardiac medications were held this morning for a blood pressure of 90 systolic and recommend a small bolus of 250 mL normal saline and reevaluate. Will follow-up with repeat labs in the morning and await and appreciate input and recommendations from infectious disease. Monitor closely for any further fevers as well. Prognosis guarded. The impression and plan of care has been dictated by Niurka Johnston, nurse practitioner as directed. MD Beny I have performed a history and examination and MDM of this patient, discussed the same with the dictator, and agree with the dictator's assessment and plan as written ,documented as a scribe. Based on total visit time, I have performed more than 50% of the visit. Any additional findings or plans will be noted. Objective - Vital Signs Vital signs: Vital Signs Temp 98.6 F 06/19/21 07:00 Pulse 60 06/19/21 12:09 Resp 18 06/19/21 07:00 BP 93/57 06/19/21 07:00 Pulse Ox 97 06/19/21 07:00 Intake & Output 06/18/21 06/19/21 06/19/21 18:59 06:59 18:59 Intake Total 540 120 Output Total 300 Balance 540 -300 120 Intake: Oral 540 120 Output: Urine 300 Other: # Voids 1 1 # Bowel Movements 1 3 1 # Emeses 1 - Labs CBC & Chem 7: 06/18/21 18:10 06/18/21 18:10 Labs: Abnormal Lab Results - Last 24 Hours (Table) 06/18/21 06/18/21 Range/Units 18:10 18:10 Lymphocytes # 0.8 L (1.0-4.8) k/uL Sodium 133 L (137-145) mmol/L
[2021-06-19] MEDS: DOXEPIN 25 MG CAP PO SCH (20:34)
[2021-06-19] MEDS: MIRTAZAPINE 45 MG TABLET PO SCH (20:34)
[2021-06-19] MEDS: MONTELUKAST 10 MG TAB PO SCH (20:34)
--- NOTE | 2021-06-19 23:17 | P.CONS ---
History of Present Illness - Reason for Consult Consult date: 06/19/21 Fever and diarrhea Requesting physician: Niurka Johnston - Chief Complaint fever x 1 day - History of Present Illness Patient is a 71-year-old -[place] male presented to the hospital 3 days ago for evaluation of chest pain in this patient complaining of pain for 1 to 2 days before presentation to the hospital patient scribes the pain to be more of a dull in nature mostly the left side 3-4 out of 10 no radiation patient denies having any nausea or vomiting has been complaining of some cough but no sputum production denies any abdominal pain however has been complaining of diarrhea with multiple loose stools denies any blood or mucus in the stools patient to p resentation to the hospital was afebrile however he started spiking a fever yesterday of 102.5 F patient is currently 96% on room air patient did have a normal white count no left shift patient did have a normal kidney function liver enzymes are normal patient did have stool for C. difficile which was negative chest x-ray on admission was negative for acute cardiopulmonary process chest x- ray repeat showing some atelectasis left lower lobe slightly increased compared to old exam patient has been started on Zosyn and vancomycin infectious disease was consulted today concerning for fever Review of Systems Positive point has been mentioned in the HPI rest of the systems are negative Past Medical History Past Medical History: Atrial Fibrillation, Asthma, Coronary Artery Disease (CAD), Heart Failure, COPD, CVA/TIA, GERD/Reflux, Hearing Disorder / Deafness, Hyperlipidemia, Hypertension, Pneumonia, Sleep Apnea/CPAP/BIPAP, Syncope Additional Past Medical History / Comment(s): Pt recently admitted to [facility] on 05/30/21 with acute lower GI bleed/urinary retention. He states after discharge he was diagnosed with pneumonia and was on antibiotic (levaquin) which he states caused an allergic reaction/edema legs and arms. 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 loss, fluid in ears which causes muffled sounds, migraines, bronchitis, small hiatal hernia. History of Any Multi-Drug Resistant Organisms: None Reported Past Surgical History: AICD, Cholecystectomy, Heart Catheterization, Heart Catheterization With Stent, Hernia Repair, Pacemaker, Tonsillectomy Additional Past Surgical History / Comment(s): 07/24/14 EGD/colonoscopy with polypectomy/bx and colonoscopy 06/01/21/polypectomy, 2005 AICD/2014 AICD changed to medtronic, internal cardioversion, 2002 Cardiac stent in [place], 2007 cardiac cath [facility], upper teeth extracted for denture, L ear has tube, cyst removed L eyelid, bilateral cataract removal, L ganglion cyst removal, L/R inguinal hernia repairs with mesh, penile implant. Past Anesthesia/Blood Transfusion Reactions: No Reported Reaction Date of Last Stent Placement:: 2002 Type of Cardiac Device: AICD Device Placement Date:: 2012 Smoking Status: Light tobacco smoker - Past Family History Father Family Medical History: Coronary Artery Disease (CAD), Pneumonia Additional Family Medical History / Comment(s): Father of pneumonia at the age of 82 yrs. Mother Family Medical History: Liver Disease, Renal Disease Additional Family Medical History / Comment(s): father passed after a bout with pneumonia Medications and Allergies Home Medications Medication Instructions Recorded Confirmed Type Furosemide [Lasix] 20 mg PO DAILY 04/01/14 06/16/21 History Mirtazapine 45 mg PO HS 04/01/14 06/16/21 History Omeprazole 40 mg PO AC-BRKFST 04/01/14 06/16/21 History QUEtiapine [SEROquel] 200 mg PO BID 04/01/14 06/16/21 History Spironolactone [Aldactone] 25 mg PO DAILY 04/01/14 06/16/21 History Budesonide/Formoterol Fumarate 2 puff INHALATION RT-BID 07/20/14 06/16/21 History [Symbicort 160-4.5 Mcg Inhaler] Citalopram Hydrobromide [CeleXA] 10 mg PO DAILY 07/20/14 06/16/21 History Levocetirizine Dihydrochloride 5 mg PO DAILY 07/20/14 06/16/21 History Montelukast [Singulair] 10 mg PO HS 07/20/14 06/16/21 History Apixaban [Eliquis] 5 mg PO BID 06/02/20 06/16/21 History Atorvastatin [Lipitor] 20 mg PO DAILY 06/02/20 06/16/21 History Aspirin 81 mg PO DAILY #30 chewable 06/04/20 06/16/21 Rx Nitroglycerin Sl Tabs [Nitrostat] 0.4 mg SL Q5M PRN 06/06/20 06/16/21 History Albuterol Inhaler [Ventolin Hfa 2 puff INHALATION RT-QID PRN 05/29/21 06/16/21 History Inhaler] Carvedilol [Coreg] 12.5 mg PO BID-W/MEALS 05/29/21 06/16/21 History Docusate [Colace] 100 mg PO DAILY 05/29/21 06/16/21 History Verapamil HCl [Verapamil Sr] 120 mg PO DAILY 05/29/21 06/16/21 History Doxepin [SINEquan] 25 mg PO HS cap 06/06/21 06/16/21 Rx Losartan [Cozaar] 50 mg PO DAILY #30 tab 06/06/21 06/16/21 Rx Tamsulosin [Flomax] 0.4 mg PO PC-BRKFST #30 cap 06/06/21 06/16/21 Rx Fluticasone Nasal [place] [Flonase 2 spr EA NOSTRIL BID PRN 06/16/21 06/16/21 History Nasal [place]] Allergies Allergy/AdvReac Type Severity Reaction Status Date / Time Barbiturates Allergy Anaphylaxis Verified 06/16/21 10:21 levofloxacin [From Levaquin] Allergy Dyspnea & Verified 06/16/21 10:21 Leg Swelling and Pain & Headache Physical Exam Vitals: Vital Signs Temp Pulse Pulse Pulse Resp BP Pulse Ox 06/19/21 14:43 97.4 F L 46 L 16 96 06/19/21 14:00 72/46 06/19/21 12:09 60 06/19/21 11:55 60 06/19/21 07:00 98.6 F 55 L 18 93/57 97 06/19/21 00:45 98.8 F 51 L 20 150/70 99 06/18/21 20:00 91 18 06/18/21 19:32 100.3 F H 51 L 20 130/75 98 06/18/21 17:23 99.6 F 51 L 18 157/84 100 Intake and Output 06/18/21 06/19/21 06/19/21 22:59 06:59 14:59 Intake Total 300 1770 Output Total 300 Balance 0 1770 Intake: Intake, IV Titration 1650 Amount Piperacillin-Tazobactam 3 100 .375 gm In Sodium Chloride 0.9% 100 ml @ 25 mls/hr IVPB Q8H [facility] Rx#: [id number] Sodium Chloride 0.9% 1, 800 000 ml @ 100 mls/hr IV . Q10H [facility] Rx#:[id number] Sodium Chloride 0.9% 250 250 ml @ 999 mls/hr IV .Q16M [facility] Rx#:[id number] Vancomycin 1,750 mg In 500 Sodium Chloride 0.9% 500 ml 500 ml @ 167 mls/hr IVPB Q12H [facility] Rx#: [id number] Oral 300 120 Output: Urine 300 Other: # Voids 1 1 # Bowel Movements 1 3 1 # Emeses 1 GENERAL DESCRIPTION: An elderly male lying in bed, no distress. No tachypnea or accessory muscle of respiration use. HEENT: Shows Pallor , no scleral icterus. Oral mucous membrane is dry. No phar yngeal erythema or thrush NECK: Trachea central, no thyromegaly. LUNGS: Unlabored breathing. Decreased breath sounds at the Base. No wheeze or crackle. HEART: S1, S2, regular rate and rhythm. No loud murmur ABDOMEN: Soft, no tenderness , guarding or rigidity, no organomegaly EXTREMITIES: No edema of feet. SKIN: No rash, no masses palpable. NEUROLOGICAL: The patient is awake, alert, oriented x3, mood and affect normal. Results CBC & Chem 7: 06/18/21 18:10 06/18/21 18:10 Labs: Abnormal Lab Results - Last 24 Hours (Table) 06/18/21 06/18/21 Range/Units 18:10 18:10 Lymphocytes # 0.8 L (1.0-4.8) k/uL Sodium 133 L (137-145) mmol/L Assessment and Plan (1) Fever Current Visit: Yes Status: Acute Code(s): R50.9 - FEVER, UNSPECIFIED SNOMED Code(s): 015494803 Plan: 1patient presented to hospital with chest pain is also complaining of shortness of breath and cough in this patient with a fever and did have evidence of increased infiltrate at the left lower lobe possible indicated of pneumonia with recent hospitalization only to cover for the gram-negative, patient also have a recent history of urinary retention and underlying urinary source needs to be ruled out. 2we will try to obtain sputum for Gram stain and culture and check urine culture. 3continue with Zosyn however discontinue vancomycin decrease risk of nephrotoxicity 4we will check inflammatory markers We will follow on clinical condition and cultures to further adjust medication if needed Thank you for this consultation will follow this patient along with you Time with Patient: Greater than 30
[2021-06-20] MEDS: SODIUM CHLORIDE 0.9% 1,000 ML IV SCH ×3 (00:42→22:17)
[2021-06-20 00:52] LABS: Appearance,Urine Clear (Clear); Bilirubin,Urine Negative (Negative); Blood,Urine Negative (Negative); Color,Urine Yellow; Glucose,Urine (UA) Negative (Negative); Ketones,Urine Negative (Negative); Leukocyte Esterase,Urine Negative (Negative); Nitrite,Urine Negative (Negative); PH, Urine 5.5 (5.0-8.0); Protein,Urine 1+ (Negative); RBC,Urine 1 /hpf (0-5); Specific Gravity,Urine 1.032 (1.001-1.035); Squamous Epithelial Cell,Urine <1 /hpf (0-4); Urobilinogen,Urine <2.0 mg/dL (<2.0); WBC,Urine 5 /hpf (0-5)
[2021-06-20] MEDS: PIPERACILLIN-TAZOBACTAM 3.375 GM in SODIUM CHLORIDE 0.9% 100 ML IVPB SCH ×3 (02:06→17:48)
[2021-06-20] MEDS: SYMBICORT 160-4.5 MCG INHALER INHALATION SCH ×2 (07:55→20:04)
[2021-06-20] MEDS: ALBUTEROL NEBULIZED 2.5 MG/3 ML INHALATION SCH ×3 (07:55→20:03)
[2021-06-20 08:16] LABS: C Reactive Protein 6.6 mg/dL (<1.0)
[2021-06-20 08:33] LABS: Basophils % (A) 0 %; Eosinophils % (A) 0 %; HCT 39.1 % (39.0-53.0); Lymphocytes # (A) 0.9 k/uL (1.0-4.8); Lymphocytes % (A) 19 %; MCH 29.2 pg (25.0-35.0); MCV 91.2 fL (80.0-100.0); Mean Platelet Volume 8.5; Monocytes # (A) 0.5 k/uL (0-1.0); Monocytes % (A) 11 %; Neutrophils # (A) 3.2 k/uL (1.3-7.7); Neutrophils % (A) 68 %; Platelet Count 201 k/uL (150-450); RBC 4.29 m/uL (4.30-5.90); RDW 13.9 % (11.5-15.5); WBC 4.8 k/uL (3.8-10.6)
[2021-06-20 09:13] LABS: HGB 12.5 gm/dL (13.0-17.5)
[2021-06-20 09:14] LABS: African American GFR (CKD) 67 (>60 ml/min/1.73 sqM); Anion Gap 6 mmol/L; Blood Urea Nitrogen 21 mg/dL (9-20); Calcium 7.5 mg/dL (8.4-10.2); Carbon Dioxide 19 mmol/L (22-30); Chloride 112 mmol/L (98-107); Glucose 101 mg/dL (74-99); Non-African American GFR(CKD) 58 (>60 ml/min/1.73 sqM); Potassium 3.1 mmol/L (3.5-5.1); Sodium 137 mmol/L (137-145)
[2021-06-20] MEDS: ASPIRIN 81 MG PO SCH (09:40)
[2021-06-20] MEDS: LORATADINE 10 MG TAB PO SCH (09:40)
[2021-06-20] MEDS: TAMSULOSIN 0.4 MG CAP.ER.24H PO SCH (09:40)
[2021-06-20] MEDS: CITALOPRAM HYDROBROMIDE 10 MG TAB PO SCH (09:40)
[2021-06-20] MEDS: guaiFENesin 600 MG TABLET.ER PO SCH ×2 (09:40→21:09)
[2021-06-20] MEDS: FUROSEMIDE 20 MG TAB PO SCH (09:40)
[2021-06-20] MEDS: LOSARTAN 50 MG TAB PO SCH (09:40)
[2021-06-20] MEDS: carvediloL 12.5 MG TAB PO SCH ×2 (09:40→17:26)
[2021-06-20] MEDS: APIXABAN 5 MG TAB PO SCH ×2 (09:41→21:08)
[2021-06-20] MEDS: SPIRONOLACTONE 25 MG TAB PO SCH (09:41)
[2021-06-20] MEDS: VERAPAMIL SR 120 MG TABLET.ER PO SCH (09:41)
[2021-06-20] MEDS: QUEtiapine 200 MG TAB PO SCH ×2 (09:41→21:08)
[2021-06-20] MEDS: ATORVASTATIN 20 MG TAB PO SCH (09:41)
[2021-06-20] MEDS: PANTOPRAZOLE 40 MG/10 ML VIAL IVP SCH ×2 (09:42→22:28)
[2021-06-20] MEDS: DOCUSATE 100 MG CAP PO SCH (11:34)
[2021-06-20] MEDS ORDERED: Potassium Replacement Protocol 1 EACH MISC MISCELLANE PRN (12:17)
--- NOTE | 2021-06-20 12:29 | P.PN ---
Subjective Progress Note Date: 06/20/21 Principal diagnosis: chest pain Patient is a very pleasant 71-year-old male, presented to the emergency room with atypical chest pain. Patient describes pain under left breast with a stabbing sensation. Patient states that it took his breath away and has been short of breath intermittently. Patient was being treated outpatient for upper respiratory versus pneumonia. Patient has been taking Levaquin and reports muscle and tendon tenderness but has improved since this morning. Antibiotics will be discontinued, chest x-ray was clear. Patient has an extensive medical history including atrial fibrillation on eliquis, COPD, heart failure, coronary artery disease, GERD, hyperlipidemia, hypertension, anxiety, depression, sleep apnea, AICD placement, heart cath with stents. First troponin was negative, EKG was negative for any ST elevation. Patient will be admitted to observation, with cardiology consult. Patient has appointment with Dr. Monsalve on Saturday. 06/17/2021 - 06/19/2021 hospitalist coverage 06/20/2021 Patient seen and examined at bedside. Patient reports continued liquid diarrhea, unable to control and has been incontinent, cdiff was negative. Patient denies any urinary symptoms, chest pain, chills. He does also reports a severe new headache in the forehead area that he rates 8/10. CT of brain was ordered to evaluate headache. Potassium was 3.1, replacement was ordered. IV antibiotics ordered by Infectious disease, continue to follow recommendations Objective - Vital Signs Vital signs: Vital Signs Temp 98.8 F 06/20/21 07:38 Pulse 82 06/20/21 07:38 Resp 18 06/20/21 07:38 BP 112/69 06/20/21 07:38 Pulse Ox 98 06/20/21 07:38 Intake & Output 06/19/21 06/20/21 06/20/21 18:59 06:59 18:59 Intake Total 1890 60 Balance 1890 60 Intake: Intake, IV Titration 1650 Amount Piperacillin-Tazobactam 3 100 .375 gm In Sodium Chloride 0.9% 100 ml @ 25 mls/hr IVPB Q8H [facility] Rx#: [id number] Sodium Chloride 0.9% 1, 800 000 ml @ 100 mls/hr IV . Q10H [facility] Rx#:[id number] Sodium Chloride 0.9% 250 250 ml @ 999 mls/hr IV .Q16M [facility] Rx#:[id number] Vancomycin 1,750 mg In 500 Sodium Chloride 0.9% 500 ml 500 ml @ 167 mls/hr IVPB Q12H [facility] Rx#: [id number] Oral 240 60 Other: Voiding Method Urinal Diaper # Voids 1 2 # Bowel Movements 3 1 1 - Constitutional General appearance: Present: average body habitus, no acute distress - EENT Eyes: Present: EOMI, PERRLA ENT: Present: normal oropharynx - Neck Neck: Present: normal ROM - Respiratory Respiratory: bilateral: diminished - Cardiovascular Heart rate: 80 Rhythm: irregularly irregular - Peripheral pulses radial pulse Peripheral Pulses: bilateral: Normal - Gastrointestinal General gastrointestinal: Present: distended, soft, tenderness - Integumentary Integumentary: Present: normal turgor - Neurologic Neurologic: Present: CNII-XII intact - Musculoskeletal Musculoskeletal: Present: generalized weakness - Psychiatric Psychiatric: Present: A&O x's 3 - Allied health notes Allied health notes reviewed: nursing - Labs CBC & Chem 7: 06/20/21 08:06 06/20/21 08:06 Labs: Abnormal Lab Results - Last 24 Hours (Table) 06/20/21 06/20/21 06/20/21 Range/Units 00:05 05:52 05:52 RBC (4.30-5.90) m/uL Hgb (13.0-17.5) gm/dL Lymphocytes # (1.0-4.8) k/uL Potassium (3.5-5.1) mmol/L Chloride (98-107) mmol/L Carbon Dioxide (22-30) mmol/L BUN (9-20) mg/dL Glucose (74-99) mg/dL Calcium (8.4-10.2) mg/dL C-Reactive Protein 6.6 H (<1.0) mg/dL Procalcitonin 0.73 H (0.02-0.09) ng/mL Urine Protein 1+ H (Negative) 06/20/21 06/20/21 Range/Units 08:06 08:06 RBC 4.29 L (4.30-5.90) m/uL Hgb 12.5 L D (13.0-17.5) gm/dL Lymphocytes # 0.9 L (1.0-4.8) k/uL Potassium 3.1 L (3.5-5.1) mmol/L Chloride 112 H (98-107) mmol/L Carbon Dioxide 19 L (22-30) mmol/L BUN 21 H (9-20) mg/dL Glucose 101 H (74-99) mg/dL Calcium 7.5 L (8.4-10.2) mg/dL C-Reactive Protein (<1.0) mg/dL Procalcitonin (0.02-0.09) ng/mL Urine Protein (Negative) Microbiology - Last 24 Hours (Table) 06/18/21 18:10 Blood Culture - Preliminary Blood No Growth after 24 hours Assessment and Plan Assessment: Chest pain, ruled out acute coronary syndrome Dyspnea with exertion, ruling out pneumonia Persistent diarrhea hypokalemia acute headache Ischemic cardiomyopathy status post AICD Hypertension Atrial fibrillation with controlled ventricular response, on Eliquis Hyperlipidemia History of coronary artery disease status post stent placement Diverticulosis Anxiety Plan: Cardiology consult for chest pain, will follow outpatient Infectious disease consult for fevers, diarrhea and recent pneumonia treatment Replace potassium and continue to monitor levels Continue monitoring vital signs Further recommendations to come based on patient's clinical course Time with Patient: Greater than 30
[2021-06-20] MEDS: POTASSIUM CHLORIDE ER 20 MEQ TAB.ER PO SCH ×2 (13:33→16:20)
--- NOTE | 2021-06-20 13:34 | CT ---
EXAMINATION TYPE: CT brain wo con DATE OF EXAM: 06/20/2021 COMPARISON: CT dated 07/21/2014 and 06/08/2020 HISTORY: headache CT DLP: 1144.7 mGycm Automated exposure control for dose reduction was used. TECHNIQUE: CT scan of the brain is performed without IV contrast administration. FINDINGS: Ballooning of the sella turcica with partial empty sella, stable. Brain volume loss changes. Scattere d arterial atherosclerotic calcifications. No acute intracranial hemorrhage. No gross acute cortical infarct. No midline shift, herniation or ventriculomegaly. Unremarkable basal cisterns and CP angles. No gross space-occupying lesion, vasogenic edema or mass effect. Unremarkable orbits. Left sphenoid sinus compartment polyp/retention cyst with adjacent bony expansio n. Severe opacification of the mastoid air cells more on the left side suggestive of bilateral mastoi ditis, please correlate clinically. No aggressive bone lesion. Degenerative changes of the left TMJ. IMPRESSION: Suspected bilateral mastoiditis, please correlate clinically. No acute intracranial hemorrhage or gross acute cortical infarct. No intra-axial space-occupying lesi on by this nonenhanced CT scan. Other incidental findings as described above.
[2021-06-20] MEDS ORDERED: VANCOMYCIN TROUGH DUE 1 EACH MISC MISCELLANE ONE (18:00)
[2021-06-20] MEDS: DOXEPIN 25 MG CAP PO SCH (21:08)
[2021-06-20] MEDS: MONTELUKAST 10 MG TAB PO SCH (21:08)
[2021-06-20] MEDS: MIRTAZAPINE 45 MG TABLET PO SCH (21:09)
--- NOTE | 2021-06-20 23:54 | P.PN ---
Subjective Progress Note Date: 06/20/21 Principal diagnosis: Fever Patient is a 71-year-old -[place] male presented to hospital with chest pain also have a cough did have a fever and evidence of left lower lobe p neumonia patient also have a significant diarrhea stool for C. diff 2 has been negative. On today's evaluation that is 06/20/2021, the patient denies having any fever or chills, the patient is breathing more comfortably. Denies having abdominal pain still complaining of diarrhea no blood or mucus in the stool reported by the nursing staff no urinary symptoms Objective - Vital Signs Vital signs: Vital Signs Temp 98.8 F 06/20/21 07:38 Pulse 82 06/20/21 07:38 Resp 18 06/20/21 07:38 BP 112/69 06/20/21 07:38 Pulse Ox 98 06/20/21 07:38 Intake & Output 06/19/21 06/20/21 06/20/21 18:59 06:59 18:59 Intake Total 1890 60 Balance 1890 60 Intake: Intake, IV Titration 1650 Amount Piperacillin-Tazobactam 3 100 .375 gm In Sodium Chloride 0.9% 100 ml @ 25 mls/hr IVPB Q8H [facility] Rx#: [id number] Sodium Chloride 0.9% 1, 800 000 ml @ 100 mls/hr IV . Q10H [facility] Rx#:[id number] Sodium Chloride 0.9% 250 250 ml @ 999 mls/hr IV .Q16M [facility] Rx#:[id number] Vancomycin 1,750 mg In 500 Sodium Chloride 0.9% 500 ml 500 ml @ 167 mls/hr IVPB Q12H [facility] Rx#: [id number] Oral 240 60 Other: Voiding Method Urinal Diaper # Voids 1 2 # Bowel Movements 3 1 - Exam GENERAL DESCRIPTION: An elderly male lying in bed in no distress RESPIRATORY SYSTEM: Unlabored breathing , decreased breath sounds at bases HEART: S1 S2 regular rate and rhythm , ABDOMEN: Soft , no tenderness EXTREMITIES: No edema feet - Labs CBC & Chem 7: 06/20/21 08:06 06/20/21 18:25 Labs: Abnormal Lab Results - Last 24 Hours (Table) 06/20/21 06/20/21 06/20/21 Range/Units 00:05 05:52 05:52 RBC (4.30-5.90) m/uL Hgb (13.0-17.5) gm/dL Lymphocytes # (1.0-4.8) k/uL Potassium (3.5-5.1) mmol/L Chloride (98-107) mmol/L Carbon Dioxide (22-30) mmol/L BUN (9-20) mg/dL Glucose (74-99) mg/dL Calcium (8.4-10.2) mg/dL C-Reactive Protein 6.6 H (<1.0) mg/dL Procalcitonin 0.73 H (0.02-0.09) ng/mL Urine Protein 1+ H (Negative) 06/20/21 06/20/21 Range/Units 08:06 08:06 RBC 4.29 L (4.30-5.90) m/uL Hgb 12.5 L D (13.0-17.5) gm/dL Lymphocytes # 0.9 L (1.0-4.8) k/uL Potassium 3.1 L (3.5-5.1) mmol/L Chloride 112 H (98-107) mmol/L Carbon Dioxide 19 L (22-30) mmol/L BUN 21 H (9-20) mg/dL Glucose 101 H (74-99) mg/dL Calcium 7.5 L (8.4-10.2) mg/dL C-Reactive Protein (<1.0) mg/dL Procalcitonin (0.02-0.09) ng/mL Urine Protein (Negative) Microbiology - Last 24 Hours (Table) 06/18/21 18:10 Blood Culture - Preliminary Blood No Growth after 24 hours Assessment and Plan (1) Fever Current Visit: Yes Status: Acute Code(s): R50.9 - FEVER, UNSPECIFIED SNOMED Code(s): 306863986 Plan: 1patient presented to hospital with chest pain is also complaining of shortness of breath and cough in this patient with a fever and did have evidence of increased infiltrate at the left lower lobe possible concern for pneumonia with recent hospitalization only to cover for the gram-negative, patient also have a recent history of urinary retention however his UA has been negative. 2we will try to obtain sputum for Gram stain urine for Legionella antigen was normal. 3continue with Zosyn and will add Questran for symptomatic relief of his diarrhea Time with Patient: Less than 30
[2021-06-21] MEDS: PIPERACILLIN-TAZOBACTAM 3.375 GM in SODIUM CHLORIDE 0.9% 100 ML IVPB SCH ×3 (02:31→18:02)
[2021-06-21] MEDS: SODIUM CHLORIDE 0.9% 1,000 ML IV SCH ×2 (06:14→19:00)
[2021-06-21 07:49] LABS: ALT 20 U/L (4-49); AST 21 U/L (17-59); African American GFR (CKD) 83 (>60 ml/min/1.73 sqM); Albumin 2.8 g/dL (3.5-5.0); Alkaline Phosphatase 68 U/L (38-126); Anion Gap 5 mmol/L; Blood Urea Nitrogen 15 mg/dL (9-20); Calcium 7.7 mg/dL (8.4-10.2); Carbon Dioxide 22 mmol/L (22-30); Chloride 111 mmol/L (98-107); Globulin 2.8 g/dL; Glucose 86 mg/dL (74-99); Non-African American GFR(CKD) 72 (>60 ml/min/1.73 sqM); Potassium 3.7 mmol/L (3.5-5.1); Sodium 138 mmol/L (137-145); Total Bilirubin 0.5 mg/dL (0.2-1.3); Total Protein 5.6 g/dL (6.3-8.2)
[2021-06-21] MEDS: guaiFENesin 600 MG TABLET.ER PO SCH ×2 (09:10→20:32)
[2021-06-21] MEDS: PANTOPRAZOLE 40 MG/10 ML VIAL IVP SCH ×2 (09:10→20:32)
[2021-06-21] MEDS: VERAPAMIL SR 120 MG TABLET.ER PO SCH (09:11)
[2021-06-21] MEDS: DOCUSATE 100 MG CAP PO SCH (09:11)
[2021-06-21] MEDS: FUROSEMIDE 20 MG TAB PO SCH (09:12)
[2021-06-21] MEDS: carvediloL 12.5 MG TAB PO SCH ×2 (09:13→18:10)
[2021-06-21] MEDS: QUEtiapine 200 MG TAB PO SCH ×2 (09:13→20:39)
[2021-06-21] MEDS: TAMSULOSIN 0.4 MG CAP.ER.24H PO SCH (09:13)
[2021-06-21] MEDS: CITALOPRAM HYDROBROMIDE 10 MG TAB PO SCH (09:14)
[2021-06-21] MEDS: LOSARTAN 50 MG TAB PO SCH (09:14)
[2021-06-21] MEDS: APIXABAN 5 MG TAB PO SCH ×2 (09:14→20:32)
[2021-06-21] MEDS: ASPIRIN 81 MG PO SCH (09:14)
[2021-06-21] MEDS: LORATADINE 10 MG TAB PO SCH (09:15)
[2021-06-21] MEDS: SPIRONOLACTONE 25 MG TAB PO SCH (09:15)
[2021-06-21] MEDS: ATORVASTATIN 20 MG TAB PO SCH (09:15)
[2021-06-21] MEDS: CHOLESTYRAMINE (WITH SUGAR) 4 GM PACKET PO SCH ×2 (09:16→20:32)
[2021-06-21] MEDS: ALBUTEROL NEBULIZED 2.5 MG/3 ML INHALATION SCH ×3 (09:41→20:59)
[2021-06-21] MEDS: SYMBICORT 160-4.5 MCG INHALER INHALATION SCH ×2 (09:42→20:59)
[2021-06-21 09:46] LABS: HGB 11.5 g/dL (13.0-17.0); MCH 27.8 pg (27.0-32.0); MCHC 31.1 g/dL (32.0-37.0); MCV 89.4 fL (80.0-97.0); Mean Platelet Volume 10.4 fL (9.5-12.2); NRBC Per 100 WBC 0 /100 WBCS (0.0-0.0); Platelet Count 214 X 10*3/uL (140-440); RBC 4.14 X 10*6/uL (4.40-5.60); RDW 14.4 % (11.5-14.5); WBC 5.27 X 10*3/uL (4.50-10.00)
--- NOTE | 2021-06-21 11:27 | P.PN ---
Subjective Progress Note Date: 06/21/21 Principal diagnosis: chest pain Patient is a very pleasant 71-year-old male, presented to the emergency room with atypical chest pain. Patient describes pain under left breast with a stabbing sensation. Patient states that it took his breath away and has been short of breath intermittently. Patient was being treated outpatient for upper respiratory versus pneumonia. Patient has been taking Levaquin and reports muscle and tendon tenderness but has improved since this morning. Antibiotics will be discontinued, chest x-ray was clear. Patient has an extensive medical history including atrial fibrillation on eliquis, COPD, heart failure, coronary artery disease, GERD, hyperlipidemia, hypertension, anxiety, depression, sleep apnea, AICD placement, heart cath with stents. First troponin was negative, EKG was negative for any ST elevation. Patient will be admitted to observation, with cardiology consult. Patient has appointment with Dr. Monsalve on Saturday. 06/17/2021 - 06/19/2021 hospitalist coverage 06/20/2021 Patient seen and examined at bedside. Patient reports continued liquid diarrhea, unable to control and has been incontinent, cdiff was negative. Patient denies any urinary symptoms, chest pain, chills. He does also reports a severe new headache in the forehead area that he rates 8/10. CT of brain was ordered to evaluate headache. Potassium was 3.1, replacement was ordered. IV antibiotics ordered by Infectious disease, continue to follow recommendations 06/21/2021 Patient was seen and examined at bedside. Patient reports feeling the same, co ntinues to have a headache. CT of brain shows mastoiditis, already on IV antibiotics. Patient states he has started medication to help with diarrhea, still having loose stools, consult to surgery as patient had colonoscopy earlier this month. Potassium remained stable at 3.7, continues to have a normal white blood cell count of 5.2. Blood culture was negative after 48 hours. No fever documented in the past 24 hours. Objective - Vital Signs Vital signs: Vital Signs Temp 97.4 F L 06/21/21 07:19 Pulse 56 L 06/21/21 10:14 Resp 17 06/21/21 10:14 BP 137/83 06/21/21 07:19 Pulse Ox 99 06/21/21 02:22 Intake & Output 06/20/21 06/21/21 06/21/21 18:59 06:59 18:59 Intake Total 400 118 Output Total 450 1125 Balance 400 -450 -1007 Intake: Oral 400 118 Output: Urine 450 1125 Other: Voiding Method Urinal # Voids 2 2 1 # Bowel Movements 1 - Constitutional General appearance: Present: average body habitus, no acute distress - EENT Eyes: Present: EOMI, PERRLA ENT: Present: normal oropharynx - Neck Neck: Present: normal ROM - Respiratory Respiratory: bilateral: diminished - Cardiovascular Heart rate: 60 Rhythm: irregularly irregular Heart sounds: normal: S1, S2 - Peripheral pulses radial pulse Peripheral Pulses: bilateral: Normal - Gastrointestinal General gastrointestinal: Present: distended, tenderness - Integumentary Integumentary: Present: normal - Neurologic Neurologic: Present: CNII-XII intact - Musculoskeletal Musculoskeletal: Present: gait normal - Psychiatric Psychiatric: Present: A&O x's 3 - Allied health notes Allied health notes reviewed: nursing - Labs CBC & Chem 7: 06/21/21 06:48 06/21/21 06:48 Labs: Abnormal Lab Results - Last 24 Hours (Table) 06/21/21 06/21/21 Range/Units 06:48 06:48 RBC 4.14 L (4.40-5.60) X 10*6/uL Hgb 11.5 L (13.0-17.0) g/dL Hct 37.0 L (39.6-50.0) % MCHC 31.1 L (32.0-37.0) g/dL Chloride 111 H (98-107) mmol/L Calcium 7.7 L (8.4-10.2) mg/dL Total Protein 5.6 L (6.3-8.2) g/dL Albumin 2.8 L (3.5-5.0) g/dL Microbiology - Last 24 Hours (Table) 06/18/21 18:10 Blood Culture - Preliminary Blood No Growth after 48 hours - Imaging and Cardiology CT Scan - head: report reviewed Assessment and Plan Assessment: Chest pain, ruled out acute coronary syndrome Dyspnea with exertion, ruling out pneumonia Persistent diarrhea hypokalemia, resolved Mastoiditis Ischemic cardiomyopathy status post AICD Hypertension Atrial fibrillation with controlled ventricular response, on Eliquis Hyperlipidemia History of coronary artery disease status post stent placement Diverticulosis Anxiety Plan: Surgical consult for persistent diarrhea and bloating after colonoscopy earlier this month Infectious disease consult for fevers, diarrhea, mastoiditis treatment, on IV zosyn Replace potassium and continue to monitor level daily Continue monitoring vital signs Further recommendations to come based on patient's clinical course Time with Patient: Greater than 30
--- NOTE | 2021-06-21 13:51 | P.GSCN ---
History of Present Illness Consult date: 06/21/21 History of present illness: CHIEF COMPLAINT: Chest pain Reason for consult abdominal bloating, diarrhea and recent colonoscopy HISTORY OF PRESENT ILLNESS: This is a 71-year-old male who initially presented to the hospital with complaints of chest pain. Patient was seen by cardiology and acute coronary syndrome was ruled out. Patient had been on antibiotics outpatient for an upper respiratory infection versus pneumonia. patient is currently on antibiotics for possible pneumonia. He is followed by infectious disease. Patient reports that since his admission he's had 4 days of diarrhea and abdominal bloating. He denies any abdominal pain. He reports decreased appetite. Denies any nausea or vomiting. He was having a significant amount of diarrhea and no blood reported in the stools. She was placed on Questran. Since then he reports decrease diarrhea. He did have a fever on admission of 102 but since then has been afebrile. White count is normal at 5.2 and his stool for C. diff was negative. He had recent colonoscopy on 06/01/[address] martin for a GI bleed results showed severe diverticulosis possible diverticulitis and likely bleeding due to a diverticular bleed. Patient reports since that admission his abdominal pain and abdominal bleeding had resolved. He completed antibiotics for possible diverticulitis. Patient is on Eliquis for A. fib does have cardiac history of AICD and coronary disease with stents. PAST MEDICAL HISTORY: See list. PAST SURGICAL HISTORY: See list. MEDICATIONS: See list. ALLERGIES: See list. SOCIAL HISTORY: No illicit drug use. REVIEW OF SYSTEMS: CONSTITUTIONAL: Denies fever or chills. HEENT: Denies blurred vision, vision changes, or eye pain. Denies hemoptysis ENDOCRINE: Denies heat or cold intolerance. CARDIOVASCULAR: Denies chest pain or pressure. RESPIRATORY: No shortness of breath. GASTROINTESTINAL: Please refer to HPI NEURO: Denies history of seizures. PSYCH: No depression or suicidal ideation HEMATOLOGIC: Denies bleeding disorders. LYMPHATIC: The patient denies any lumps and bumps around the neck. GENITOURINARY: Denies any blood in urine or increased urinary frequency. MUSCULOSKELETAL: Denies myalgias. Denies joint swelling. Denies decreased range of motion beyond patients baseline. SKIN: Denies pruitis. Denies rash. PHYSICAL EXAM: VITAL SIGNS: Reviewed GENERAL: Well-developed in no acute distress. HEENT: No sclera icterus. Extraocular movements grossly intact. Moist buccal mucosa. Head is atraumatic, normocephalic. Hears conversational speech. No nasal drainage. NECK: Supple without lymphadenopathy. CHEST: Non-labored respirations and equal bilateral excursions. CARDIOVASCULAR: Palpable 2+ radial pulses. ABDOMEN: Soft. Distended. Nontender. MUSCULOSKELETAL: No clubbing or cyanosis. NEUROLOGIC: No focal or lateralizing signs. Cranial nerves II through XII grossly intact. PSYCH: Appropriate affect. Alert and oriented to person, place and time. SKIN: Well perfused. Good skin turgor. LABORATORY DATA: WBC is 5.27 hemoglobin 11.5 platelets 214 sodium 138 potassium 3.7 creatinine 1.05 IMAGING: ASSESSMENT: 1. Abdominal distention with abdominal bloating and diarrhea. Patient reporting improvement in his symptoms after the addition of Questran 2. Recent colonoscopy on 06/01/2021 showing severe diverticulosis and possible diverticulitis. And presumed GI bleed was due to a diverticular bleed. 3. Possible Pneumonia 4. History of ischemic cardiac myopathy status post AICD 5. History of atrial fibrillation anticoagulated with Eliquis PLAN: -Check abdominal x-ray due to abdominal distention -Recommend GI consult for abdominal bloating and diarrhea -Continue supportive care -No surgical intervention planned Thank you for this consultation Physician Science Liaison note has been reviewed by physician. Signing provider agrees with the documented findings, assessment, and plan of care. Past Medical History Past Medical History: Atrial Fibrillation, Asthma, Coronary Artery Disease (CAD), Heart Failure, COPD, CVA/TIA, GERD/Reflux, Hearing Disorder / Deafness, Hyperlipidemia, Hypertension, Pneumonia, Sleep Apnea/CPAP/BIPAP, Syncope Additional Past Medical History / Comment(s): Pt recently admitted to [facility] on 05/30/21 with acute lower GI bleed/urinary retention. He states after discharge he was diagnosed with pneumonia and was on antibiotic (levaquin) which he states caused an allergic reaction/edema legs and arms. 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 loss, fluid in ears which causes muffled sounds, migraines, bronchitis, small hiatal hernia. History of Any Multi-Drug Resistant Organisms: None Reported Past Surgical History: AICD, Cholecystectomy, Heart Catheterization, Heart Catheterization With Stent, Hernia Repair, Pacemaker, Tonsillectomy Additional Past Surgical History / Comment(s): 07/24/14 EGD/colonoscopy with polypectomy/bx and colonoscopy 06/01/21/polypectomy, 2005 AICD/2014 AICD changed to medtronic, internal cardioversion, 2002 Cardiac stent in [place], 2007 cardiac cath [facility], upper teeth extracted for denture, L ear has tube, cyst removed L eyelid, bilateral cataract removal, L ganglion cyst removal, L/R inguinal hernia repairs with mesh, penile implant. Past Anesthesia/Blood Transfusion Reactions: No Reported Reaction Date of Last Stent Placement:: 2002 Type of Cardiac Device: AICD Device Placement Date:: 2012 Smoking Status: Light tobacco smoker - Past Family History Father Family Medical History: Coronary Artery Disease (CAD), Pneumonia Additional Family Medical History / Comment(s): Father of pneumonia at the age of 82 yrs. Mother Family Medical History: Liver Disease, Renal Disease Additional Family Medical History / Comment(s): father passed after a bout with pneumonia Medications and Allergies Home Medications Medication Instructions Recorded Confirmed Type Furosemide [Lasix] 20 mg PO DAILY 04/01/14 06/16/21 History Mirtazapine 45 mg PO HS 04/01/14 06/16/21 History Omeprazole 40 mg PO AC-BRKFST 04/01/14 06/16/21 History QUEtiapine [SEROquel] 200 mg PO BID 04/01/14 06/16/21 History Spironolactone [Aldactone] 25 mg PO DAILY 04/01/14 06/16/21 History Budesonide/Formoterol Fumarate 2 puff INHALATION RT-BID 07/20/14 06/16/21 History [Symbicort 160-4.5 Mcg Inhaler] Citalopram Hydrobromide [CeleXA] 10 mg PO DAILY 07/20/14 06/16/21 History Levocetirizine Dihydrochloride 5 mg PO DAILY 07/20/14 06/16/21 History Montelukast [Singulair] 10 mg PO HS 07/20/14 06/16/21 History Apixaban [Eliquis] 5 mg PO BID 06/02/20 06/16/21 History Atorvastatin [Lipitor] 20 mg PO DAILY 06/02/20 06/16/21 History Aspirin 81 mg PO DAILY #30 chewable 06/04/20 06/16/21 Rx Nitroglycerin Sl Tabs [Nitrostat] 0.4 mg SL Q5M PRN 06/06/20 06/16/21 History Albuterol Inhaler [Ventolin Hfa 2 puff INHALATION RT-QID PRN 05/29/21 06/16/21 History Inhaler] Carvedilol [Coreg] 12.5 mg PO BID-W/MEALS 05/29/21 06/16/21 History Docusate [Colace] 100 mg PO DAILY 05/29/21 06/16/21 History Verapamil HCl [Verapamil Sr] 120 mg PO DAILY 05/29/21 06/16/21 History Doxepin [SINEquan] 25 mg PO HS cap 06/06/21 06/16/21 Rx Losartan [Cozaar] 50 mg PO DAILY #30 tab 06/06/21 06/16/21 Rx Tamsulosin [Flomax] 0.4 mg PO PC-BRKFST #30 cap 06/06/21 06/16/21 Rx Fluticasone Nasal [place] [Flonase 2 spr EA NOSTRIL BID PRN 06/16/21 06/16/21 History Nasal [place]] Allergies Allergy/AdvReac Type Severity Reaction Status Date / Time Barbiturates Allergy Anaphylaxis Verified 06/16/21 10:21 levofloxacin [From Levaquin] Allergy Dyspnea & Verified 06/16/21 10:21 Leg Swelling and Pain & Headache Surgical - Exam Vital Signs Temp Pulse Resp BP Pulse Ox 98.2 F 65 18 158/68 98 06/16/21 09:04 06/16/21 09:04 06/16/21 09:04 06/16/21 09:04 06/16/21 09:04 Results - Labs 06/21/21 06:48 06/21/21 06:48 Abnormal Lab Results - Last 24 Hours (Table) 06/21/21 06/21/21 Range/Units 06:48 06:48 RBC 4.14 L (4.40-5.60) X 10*6/uL Hgb 11.5 L (13.0-17.0) g/dL Hct 37.0 L (39.6-50.0) % MCHC 31.1 L (32.0-37.0) g/dL Chloride 111 H (98-107) mmol/L Calcium 7.7 L (8.4-10.2) mg/dL Total Protein 5.6 L (6.3-8.2) g/dL Albumin 2.8 L (3.5-5.0) g/dL Microbiology - Last 24 Hours (Table) 06/18/21 18:10 Blood Culture - Preliminary Blood No Growth after 48 hours Diabetes panel 06/20/21 06/21/21 Range/Units 18:25 06:48 Sodium 138 (137-145) mmol/L Potassium 3.5 3.7 (3.5-5.1) mmol/L Chloride 111 H (98-107) mmol/L Carbon Dioxide 22 (22-30) mmol/L BUN 15 (9-20) mg/dL Creatinine 1.05 (0.66-1.25) mg/dL Glucose 86 (74-99) mg/dL Calcium 7.7 L (8.4-10.2) mg/dL AST 21 (17-59) U/L ALT 20 (4-49) U/L Alkaline Phosphatase 68 (38-126) U/L Total Protein 5.6 L (6.3-8.2) g/dL Albumin 2.8 L (3.5-5.0) g/dL Calcium panel 06/21/21 Range/Units 06:48 Calcium 7.7 L (8.4-10.2) mg/dL Albumin 2.8 L (3.5-5.0) g/dL Pituitary panel 06/20/21 06/21/21 Range/Units 18:25 06:48 Sodium 138 (137-145) mmol/L Potassium 3.5 3.7 (3.5-5.1) mmol/L Chloride 111 H (98-107) mmol/L Carbon Dioxide 22 (22-30) mmol/L BUN 15 (9-20) mg/dL Creatinine 1.05 (0.66-1.25) mg/dL Glucose 86 (74-99) mg/dL Calcium 7.7 L (8.4-10.2) mg/dL Adrenal panel 06/20/21 06/21/21 Range/Units 18:25 06:48 Sodium 138 (137-145) mmol/L Potassium 3.5 3.7 (3.5-5.1) mmol/L Chloride 111 H (98-107) mmol/L Carbon Dioxide 22 (22-30) mmol/L BUN 15 (9-20) mg/dL Creatinine 1.05 (0.66-1.25) mg/dL Glucose 86 (74-99) mg/dL Calcium 7.7 L (8.4-10.2) mg/dL Total Bilirubin 0.5 (0.2-1.3) mg/dL AST 21 (17-59) U/L ALT 20 (4-49) U/L Alkaline Phosphatase 68 (38-126) U/L Total Protein 5.6 L (6.3-8.2) g/dL Albumin 2.8 L (3.5-5.0) g/dL
--- NOTE | 2021-06-21 16:29 | XR ---
EXAMINATION TYPE: XR abdomen 2V DATE OF EXAM: 06/21/2021 COMPARISON: X-ray dated 06/12/2021 INDICATION: Abdominal distention TECHNIQUE: 3 views of the abdomen, erect and supine FINDINGS: No free air under the diaphragm. No multiple air-fluid levels or signs of acute high-grade small jannet l obstruction. Nonspecific bowel gas distribution pattern. Right upper abdominal quadrant surgical cl ips. Levoscoliosis of the lumbar spine. Questionable small left pleural effusion. No significant fecal denis ding of the colon. Penile prosthesis with suspected bilateral pelvic phleboliths. Degenerative change s of the lower lumbar spine IMPRESSION: As above.
[2021-06-21] MEDS: ACETAMINOPHEN TAB 325 MG TAB PO PRN (18:11)
[2021-06-21] MEDS: MIRTAZAPINE 45 MG TABLET PO SCH (20:32)
[2021-06-21] MEDS: MONTELUKAST 10 MG TAB PO SCH (20:32)
[2021-06-21] MEDS: DOXEPIN 25 MG CAP PO SCH (20:32)
--- NOTE | 2021-06-21 23:54 | P.PN ---
Subjective Progress Note Date: 06/21/21 Principal diagnosis: Fever Patient is a 71-year-old -[place] male presented to hospital with chest pain also have a cough did have a fever and evidence of left lower lobe p neumonia patient also have a significant diarrhea stool for C. diff 2 has been negative. On today's evaluation that is 06/21/2021, the patient remains to be afebrile, the patient is breathing comfortably on room air. The patient Denies having abdominal pain and diarrhea has slowed down, patient denies having any chest pain or shortness with occasional cough but not bringing up any sputum Objective - Vital Signs Vital signs: Vital Signs Temp 97.4 F L 06/21/21 07:19 Pulse 56 L 06/21/21 10:14 Resp 17 06/21/21 10:14 BP 137/83 06/21/21 07:19 Pulse Ox 99 06/21/21 02:22 Intake & Output 06/20/21 06/21/21 06/21/21 18:59 06:59 18:59 Intake Total 400 118 Output Total 450 1125 Balance 400 -450 -1007 Intake: Oral 400 118 Output: Urine 450 1125 Other: Voiding Method Urinal # Voids 2 2 1 # Bowel Movements 1 - Exam GENERAL DESCRIPTION: An elderly male lying in bed in no distress RESPIRATORY SYSTEM: Unlabored breathing , decreased breath sounds at bases HEART: S1 S2 regular rate and rhythm , ABDOMEN: Soft , no tenderness EXTREMITIES: No edema feet - Labs CBC & Chem 7: 06/21/21 06:48 06/21/21 06:48 Labs: Abnormal Lab Results - Last 24 Hours (Table) 06/21/21 06/21/21 Range/Units 06:48 06:48 RBC 4.14 L (4.40-5.60) X 10*6/uL Hgb 11.5 L (13.0-17.0) g/dL Hct 37.0 L (39.6-50.0) % MCHC 31.1 L (32.0-37.0) g/dL Chloride 111 H (98-107) mmol/L Calcium 7.7 L (8.4-10.2) mg/dL Total Protein 5.6 L (6.3-8.2) g/dL Albumin 2.8 L (3.5-5.0) g/dL Microbiology - Last 24 Hours (Table) 06/18/21 18:10 Blood Culture - Preliminary Blood No Growth after 48 hours Assessment and Plan (1) Fever Current Visit: Yes Status: Acute Code(s): R50.9 - FEVER, UNSPECIFIED SNOMED Code(s): 296573398 Plan: 1patient presented to hospital with chest pain is also complaining of shortness of breath and cough in this patient with a fever and did have evidence of increased infiltrate at the left lower lobe possible concern for pneumonia with recent hospitalization only to cover for the gram-negative, patient also have a recent history of urinary retention however his UA has been negative. 2we will try to obtain sputum for Gram stain urine for Legionella antigen was normal. 3patient to continue continue with Zosyn and Questran and monitor his clinical course closely Time with Patient: Less than 30
[2021-06-22] MEDS: PIPERACILLIN-TAZOBACTAM 3.375 GM in SODIUM CHLORIDE 0.9% 100 ML IVPB SCH ×2 (02:41→10:27)
[2021-06-22] MEDS: SODIUM CHLORIDE 0.9% 1,000 ML IV SCH (02:41)
[2021-06-22] MEDS: ALBUTEROL NEBULIZED 2.5 MG/3 ML INHALATION SCH ×2 (07:32→11:35)
[2021-06-22] MEDS: SYMBICORT 160-4.5 MCG INHALER INHALATION SCH (07:36)
[2021-06-22] MEDS: PANTOPRAZOLE 40 MG/10 ML VIAL IVP SCH (10:30)
[2021-06-22] MEDS: guaiFENesin 600 MG TABLET.ER PO SCH (10:34)
[2021-06-22] MEDS: ASPIRIN 81 MG PO SCH (10:34)
[2021-06-22] MEDS: CITALOPRAM HYDROBROMIDE 10 MG TAB PO SCH (10:34)
[2021-06-22] MEDS: CHOLESTYRAMINE (WITH SUGAR) 4 GM PACKET PO SCH (10:34)
[2021-06-22] MEDS: TAMSULOSIN 0.4 MG CAP.ER.24H PO SCH (10:35)
[2021-06-22] MEDS: LORATADINE 10 MG TAB PO SCH (10:35)
[2021-06-22] MEDS: LOSARTAN 50 MG TAB PO SCH (10:35)
[2021-06-22] MEDS: APIXABAN 5 MG TAB PO SCH (10:35)
[2021-06-22] MEDS: FUROSEMIDE 20 MG TAB PO SCH (10:35)
[2021-06-22] MEDS: QUEtiapine 200 MG TAB PO SCH (10:36)
[2021-06-22] MEDS: DOCUSATE 100 MG CAP PO SCH (10:36)
[2021-06-22] MEDS: VERAPAMIL SR 120 MG TABLET.ER PO SCH (10:36)
[2021-06-22] MEDS: carvediloL 12.5 MG TAB PO SCH (10:36)
[2021-06-22] MEDS: SPIRONOLACTONE 25 MG TAB PO SCH (10:36)
[2021-06-22] MEDS: ATORVASTATIN 20 MG TAB PO SCH (10:37)
--- NOTE | 2021-06-22 10:45 | P.PN ---
Subjective Progress Note Date: 06/22/21 CHIEF COMPLAINT: Abdominal bloating and diarrhea HISTORY OF PRESENT ILLNESS: Patient reports it's been about 2-3 days since he's had diarrhea. Still complains of abdominal bloating. Denies any abdominal pain. He is having flatus. Denies any nausea or vomiting. Reports that he gets full feeling after eating. Patient to be evaluated by GI service today. Abdominal x-ray was unremarkable. Afebrile. PHYSICAL EXAM: VITAL SIGNS: Reviewed. GENERAL: Well-developed in no acute distress. HEENT: No sclera icterus. Extraocular movements grossly intact. Moist buccal mucosa. Head is atraumatic, normocephalic. ABDOMEN: Soft. Distended. Nontender. NEUROLOGIC: Alert and oriented. Cranial nerves II through XII grossly intact. ASSESSMENT: 1. Abdominal distention with abdominal bloating and diarrhea 2. Recent colonoscopy on 06/01/2021 showing severe diverticulosis and possible diverticulitis. And presumed GI bleed was due to a diverticular bleed. 3. Possible Pneumonia 4. History of ischemic cardiac myopathy status post AICD 5. History of atrial fibrillation anticoagulated with Eliquis PLAN: -No surgical intervention planned -Awaiting GI evaluation -Continue supportive care Physician Senior It Engineer note has been reviewed by physician. Signing provider agrees with the documented findings, assessment, and plan of care. Objective - Vital Signs Vital signs: Vital Signs Temp 97.8 F 06/22/21 07:52 Pulse 60 06/22/21 10:39 Resp 20 06/22/21 07:52 BP 123/68 06/22/21 07:52 Pulse Ox 99 06/22/21 07:52 Intake & Output 06/21/21 06/22/21 06/22/21 18:59 06:59 18:59 Intake Total 298 118 Output Total 1765 600 Balance -1467 482 Intake: Oral 298 118 Output: Urine 1765 600 Other: Voiding Method Urinal Urinal # Voids 1 2 - Labs CBC & Chem 7: 06/21/21 06:48 06/21/21 06:48 Labs: Microbiology - Last 24 Hours (Table) 06/21/21 21:08 Sputum Culture - Preliminary Sputum 06/18/21 18:10 Blood Culture - Preliminary Blood No Growth after 72 hours
--- NOTE | 2021-06-22 11:59 | P.DS ---
Providers Date of admission: 06/20/21 08:10 Expected date of discharge: 06/22/21 Attending physician: Hudson Moran Consults: 06/16/21 12:12 Consult Physician Urgent Consulting Provider: Andrew Skinner Consult Reason/Comments: chest pain Do you want consulting provider notified?: Yes 06/19/21 14:18 Consult Physician Urgent Consulting Provider: Donita Wade Consult Reason/Comments: Fevers, diarrhea, hypotension Do you want consulting provider notified?: Yes 06/21/21 11:14 Consult Physician Routine Consulting Provider: Neo Meehan Consult Reason/Comments: diarrhea, bloating, recent colonoscopy Do you want consulting provider notified?: Yes 06/21/21 13:36 Consult Physician Routine Consulting Provider: Adrienne Olsen Consult Reason/Comments: abdominal bloating, diarrhea Do you want consulting provider notified?: Yes Primary care physician: Hudson Moran [place] [facility] Course: Patient is a very pleasant 71-year-old male, presented to the emergency room with atypical chest pain. Patient describes pain under left breast with a stabbing sensation. Patient states that it took his breath away and has been short of breath intermittently. Patient was being treated outpatient for upper respiratory versus pneumonia. Patient has been taking Levaquin and reports muscle and tendon tenderness but has improved since this morning. Antibiotics will be discontinued, chest x-ray was clear. Patient has an extensive medical history including atrial fibrillation on eliquis, COPD, heart failure, coronary artery disease, GERD, hyperlipidemia, hypertension, anxiety, depression, sleep apnea, AICD placement, heart cath with stents. First troponin was negative, EKG was negative for any ST elevation. Patient will be admitted to observation, with cardiology consult. Patient has appointment with Dr. Monsalve on Saturday. 06/17/2021 - 06/19/2021 hospitalist coverage 06/20/2021 Patient seen and examined at bedside. Patient reports continued liquid diarrhea, unable to control and has been incontinent, cdiff was negative. Patient denies any urinary symptoms, chest pain, chills. He does also reports a severe new headache in the forehead area that he rates 8/10. CT of brain was ordered to evaluate headache. Potassium was 3.1, replacement was ordered. IV antibiotics ordered by Infectious disease, continue to follow recommendations 06/21/2021 Patient was seen and examined at bedside. Patient reports feeling the same, continues to have a headache. CT of brain shows mastoiditis, already on IV antibiotics. Patient states he has started medication to help with diarrhea, still having loose stools, consult to surgery as patient had colonoscopy earlier this month. Potassium remained stable at 3.7, continues to have a normal white blood cell count of 5.2. Blood culture was negative after 48 hours. No fever documented in the past 24 hours. 06/22/2021 Patient was seen and assessed at bedside. Patient was sitting up in the chair in no acute distress. Reports walking in the hallway with physical therapy without issue. Continues to have abdominal bloating, was cleared by surgery for discharge. Denies diarrhea, chest pain, or shortness of breath. Patient is agreeable to be discharged home with home care. Infectious disease recommends 7 day treatment of avelox. Assessment: Chest pain, ruled out acute coronary syndrome Dyspnea with exertion, resolved Persistent diarrhea, resolved hypokalemia, resolved Mastoiditis, to follow with ent outpatient Ischemic cardiomyopathy status post AICD Hypertension Atrial fibrillation with controlled ventricular response, on Eliquis Hyperlipidemia History of coronary artery disease status post stent placement Diverticulosis Anxiety Health Concerns: multiple comorbidities Pertinent Studies: chest xray- negative for acute pulmonary process US venous doppler- negative for DVT bilaterally Brain CT- bilateral mastoiditis abd xray- negative for bowel obstruction Patient Condition at Discharge: Fair Plan - Discharge Summary Discharge Rx Participant: No New Discharge Prescriptions: New Moxifloxacin HCl [Avelox] 400 mg PO DAILY 7 Days #7 tablet Continue Mirtazapine 45 mg PO HS QUEtiapine [SEROquel] 200 mg PO BID Omeprazole 40 mg PO AC-BRKFST Spironolactone [Aldactone] 25 mg PO DAILY Furosemide [Lasix] 20 mg PO DAILY Montelukast [Singulair] 10 mg PO HS Levocetirizine Dihydrochloride 5 mg PO DAILY Budesonide/Formoterol Fumarate [Symbicort 160-4.5 Mcg Inhaler] 2 puff INHALATION RT-BID Citalopram Hydrobromide [CeleXA] 10 mg PO DAILY Apixaban [Eliquis] 5 mg PO BID Atorvastatin [Lipitor] 20 mg PO DAILY Aspirin 81 mg PO DAILY #30 chewable Nitroglycerin Sl Tabs [Nitrostat] 0.4 mg SL Q5M PRN PRN Reason: Chest Pain Carvedilol [Coreg] 12.5 mg PO BID-W/MEALS Docusate [Colace] 100 mg PO DAILY Losartan [Cozaar] 50 mg PO DAILY #30 tab Doxepin [SINEquan] 25 mg PO HS cap Fluticasone Nasal [place] [Flonase Nasal [place]] 2 spr EA NOSTRIL BID PRN PRN Reason: Allergy Symptoms Albuterol Inhaler [Ventolin Hfa Inhaler] 2 puff INHALATION RT-QID PRN PRN Reason: Shortness Of Breath Verapamil HCl [Verapamil Sr] 120 mg PO DAILY Tamsulosin [Flomax] 0.4 mg PO PC-BRKFST #30 cap Discharge Medication List Furosemide [Lasix] 20 mg PO DAILY 04/01/14 [History] Mirtazapine 45 mg PO HS 04/01/14 [History] Omeprazole 40 mg PO AC-BRKFST 04/01/14 [History] QUEtiapine [SEROquel] 200 mg PO BID 04/01/14 [History] Spironolactone [Aldactone] 25 mg PO DAILY 04/01/14 [History] Budesonide/Formoterol Fumarate [Symbicort 160-4.5 Mcg Inhaler] 2 puff INHALATION RT-BID 07/20/14 [History] Citalopram Hydrobromide [CeleXA] 10 mg PO DAILY 07/20/14 [History] Levocetirizine Dihydrochloride 5 mg PO DAILY 07/20/14 [History] Montelukast [Singulair] 10 mg PO HS 07/20/14 [History] Apixaban [Eliquis] 5 mg PO BID 06/02/20 [History] Atorvastatin [Lipitor] 20 mg PO DAILY 06/02/20 [History] Aspirin 81 mg PO DAILY #30 chewable 06/04/20 [Rx] Nitroglycerin Sl Tabs [Nitrostat] 0.4 mg SL Q5M PRN 06/06/20 [History] Albuterol Inhaler [Ventolin Hfa Inhaler] 2 puff INHALATION RT-QID PRN 05/29/21 [History] Carvedilol [Coreg] 12.5 mg PO BID-W/MEALS 05/29/21 [History] Docusate [Colace] 100 mg PO DAILY 05/29/21 [History] Verapamil HCl [Verapamil Sr] 120 mg PO DAILY 05/29/21 [History] Doxepin [SINEquan] 25 mg PO HS cap 06/06/21 [Rx] Losartan [Cozaar] 50 mg PO DAILY #30 tab 06/06/21 [Rx] Tamsulosin [Flomax] 0.4 mg PO PC-BRKFST #30 cap 06/06/21 [Rx] Fluticasone Nasal [place] [Flonase Nasal [place]] 2 spr EA NOSTRIL BID PRN 06/16/21 [History] Moxifloxacin HCl [Avelox] 400 mg PO DAILY 7 Days #7 tablet 06/22/21 [Rx] Follow up Appointment(s)/Referral(s): Hudson Moran MD [Primary Care Provider] - 1-2 days [facility], [NON-STAFF] - 1-2 Days Arcadio Cooley MD [STAFF PHYSICIAN] - 1 Week Patient Instructions/Handouts: Gas and Bloating (GEN) Activity/Diet/Wound Care/Special Instructions: Patient to follow up with ENT for bilateral mastoiditis Discharge Disposition: HOME WITH HOME HEALTH SERVICES
[2021-06-22] MEDS ORDERED: polyethylene glycoL 3350 17 GM POWD.PACK PO PRN (12:45)
[2021-06-22 15:14] VITALS: BP 114/67; PULSE 85; RESP 18; TEMP 97.6
--- NOTE | 2021-06-22 15:55 | P.CONS ---
History of Present Illness - Reason for Consult Consult date: 06/22/21 (Late entry patient was seen around 09 100) Abdominal bloating, diarrhea Requesting physician: Florida Rhodes - Chief Complaint Chest pain - History of Present Illness This is 71-year-old male who had presented to the emergency department on 06/16/2021 with complaints of chest pain. Patient stated it was left breast pain stabbing sensation. He felt short of breath with it. Patient recently underwent EGD with Dr. Meehan on 06/01/2021 for GI bleed and diarrhea. Fin dings were consistent with severe diverticulosis with possible diverticulitis. Biopsy results came back as possible infectious colitis versus diverticulitis. Patient states he has not had any further diarrhea since Saturday. He actually now feels constipated and bloated. He has been started on Questran, yet remains on Colace. He denies any abdominal pain, nausea or vomiting. He is passing gas. Gen. surgery ask gastroenterology to consult for bloating and diarrhea. Once again patient has stated that he has had no diarrhea since Saturday. He did deny that there was any blood or black stool when he was having loose bowel movements. He states that he had diarrhea for about 1 week duration he had been on antibiotics treated for pneumonia. He had a C. diff done both on 06/06/21 and 06/19/21 both of which were negative. Patient had x-ray of the abdomen yesterday that showed no concerns for ileus or obstruction. Review of Systems REVIEW OF SYSTEMS: CARDIOPULMONARY: No chest pain or shortness of breath. Gastrointestinal: No abdominal pain, complaining of bloating and diarrhea 1 week duration, however no further diarrhea since Saturday. . No nausea or vomiting. No hematemesis, coffee-ground emesis. No rectal bleeding, or melena. GENITOURINARY: No dysuria or hematuria. MUSCULOSKELETAL: Reports normal range of motion., Joint pain. SKIN: No rashes. No jaundice. ENDOCRINE: No chills, fevers. No excessive weight gain or loss. No polydipsia or polyuria. PSYCHIATRIC: Unremarkable. NEUROLOGY: No change in mental status. Denies dizziness, headache. ENT: Vision unremarkable. CONSTITUTIONAL: No recent weight loss. No fever, chills, night sweats. Past Medical History Past Medical History: Atrial Fibrillation, Asthma, Coronary Artery Disease (CAD), Heart Failure, COPD, CVA/TIA, GERD/Reflux, Hearing Disorder / Deafness, Hyperlipidemia, Hypertension, Pneumonia, Sleep Apnea/CPAP/BIPAP, Syncope Additional Past Medical History / Comment(s): Pt recently admitted to [facility] on 05/30/21 with acute lower GI bleed/urinary retention. He states after discharge he was diagnosed with pneumonia and was on antibiotic (levaquin) which he states caused an allergic reaction/edema legs and arms. 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 loss, fluid in ears which causes muffled sounds, migraines, bronchitis, small hiatal hernia. History of Any Multi-Drug Resistant Organisms: None Reported Past Surgical History: AICD, Cholecystectomy, Heart Catheterization, Heart Ca theterization With Stent, Hernia Repair, Pacemaker, Tonsillectomy Additional Past Surgical History / Comment(s): 07/24/14 EGD/colonoscopy with polypectomy/bx and colonoscopy 06/01/21/polypectomy, 2005 AICD/2014 AICD changed to medtronic, internal cardioversion, 2002 Cardiac stent in [place], 2007 cardiac cath [facility], upper teeth extracted for denture, L ear has tube, cyst removed L eyelid, bilateral cataract removal, L ganglion cyst removal, L/R inguinal hernia repairs with mesh, penile implant. Past Anesthesia/Blood Transfusion Reactions: No Reported Reaction Date of Last Stent Placement:: 2002 Type of Cardiac Device: AICD Device Placement Date:: 2012 Smoking Status: Light tobacco smoker - Past Family History Father Family Medical History: Coronary Artery Disease (CAD), Pneumonia Additional Family Medical History / Comment(s): Father of pneumonia at the age of 82 yrs. Mother Family Medical History: Liver Disease, Renal Disease Additional Family Medical History / Comment(s): father passed after a bout with pneumonia Medications and Allergies Home Medications Medication Instructions Recorded Confirmed Type Furosemide [Lasix] 20 mg PO DAILY 04/01/14 06/16/21 History Mirtazapine 45 mg PO HS 04/01/14 06/16/21 History Omeprazole 40 mg PO AC-BRKFST 04/01/14 06/16/21 History QUEtiapine [SEROquel] 200 mg PO BID 04/01/14 06/16/21 History Spironolactone [Aldactone] 25 mg PO DAILY 04/01/14 06/16/21 History Budesonide/Formoterol Fumarate 2 puff INHALATION RT-BID 07/20/14 06/16/21 History [Symbicort 160-4.5 Mcg Inhaler] Citalopram Hydrobromide [CeleXA] 10 mg PO DAILY 07/20/14 06/16/21 History Levocetirizine Dihydrochloride 5 mg PO DAILY 07/20/14 06/16/21 History Montelukast [Singulair] 10 mg PO HS 07/20/14 06/16/21 History Apixaban [Eliquis] 5 mg PO BID 06/02/20 06/16/21 History Atorvastatin [Lipitor] 20 mg PO DAILY 06/02/20 06/16/21 History Aspirin 81 mg PO DAILY #30 chewable 06/04/20 06/16/21 Rx Nitroglycerin Sl Tabs [Nitrostat] 0.4 mg SL Q5M PRN 06/06/20 06/16/21 History Albuterol Inhaler [Ventolin Hfa 2 puff INHALATION RT-QID PRN 05/29/21 06/16/21 History Inhaler] Carvedilol [Coreg] 12.5 mg PO BID-W/MEALS 05/29/21 06/16/21 History Docusate [Colace] 100 mg PO DAILY 05/29/21 06/16/21 History Verapamil HCl [Verapamil Sr] 120 mg PO DAILY 05/29/21 06/16/21 History Doxepin [SINEquan] 25 mg PO HS cap 06/06/21 06/16/21 Rx Losartan [Cozaar] 50 mg PO DAILY #30 tab 06/06/21 06/16/21 Rx Tamsulosin [Flomax] 0.4 mg PO PC-BRKFST #30 cap 06/06/21 06/16/21 Rx Fluticasone Nasal [place] [Flonase 2 spr EA NOSTRIL BID PRN 06/16/21 06/16/21 History Nasal [place]] Moxifloxacin HCl [Avelox] 400 mg PO DAILY 7 Days #7 tablet 06/22/21 Rx Allergies Allergy/AdvReac Type Severity Reaction Status Date / Time Barbiturates Allergy Anaphylaxis Verified 06/16/21 10:21 levofloxacin [From Levaquin] Allergy Dyspnea & Verified 06/16/21 10:21 Leg Swelling and Pain & Headache Physical Exam Vitals: Vital Signs Temp Pulse Pulse Pulse Resp BP Pulse Ox 06/22/21 14:00 97.6 F 85 18 114/67 98 06/22/21 11:43 75 06/22/21 11:35 74 06/22/21 10:39 60 06/22/21 07:52 97.8 F 55 L 20 123/68 99 06/22/21 07:46 60 06/22/21 07:33 52 L 06/22/21 03:07 97.7 F 80 16 112/67 98 06/21/21 21:10 58 L 06/21/21 20:59 54 L 06/21/21 20:51 97.9 F 70 16 132/79 99 06/21/21 19:45 60 18 06/21/21 18:09 60 Intake and Output 06/22/21 06/22/21 06/22/21 06:59 14:59 22:59 Intake Total 118 Output Total 1050 Balance -932 Intake: Oral 118 Output: Urine 1050 Other: Voiding Method Urinal # Voids 2 General appearance: The patient is alert, oriented, appears in no acute distress. HET: Head is normocephalic and atraumatic. Conjunctiva pink. Sclera anicteric. Neck: Supple without lymphadenopathy. Trachea midline. Heart: S1 S2. Regular rate and rhythm. Lungs: Clear to auscultation. Abdomen: Soft, nontender, mildly distended with bowel sounds. No guarding or rigidity. Skin: No rashes. No jaundice. Extremities: Normal skin color and turgor. No pedal edema. Neurological: No focal deficits. Alert and oriented x3. Results CBC & Chem 7: 06/21/21 06:48 06/21/21 06:48 Labs: Microbiology - Last 24 Hours (Table) 06/21/21 21:08 Sputum Culture - Preliminary Sputum 06/18/21 18:10 Blood Culture - Preliminary Blood No Growth after 72 hours Comments: Abdominal x-ray no free air under diaphragm. No multiple air-fluid levels or signs of acute high-grade small bowel obstruction. Nonspecific bowel gas distribution pattern. Right upper abdominal quadrant surgical clips. Questiona ble small left pleural effusion. Assessment and Plan (1) Abdominal bloating Narrative/Plan: Patient 71-year-old who came in for chest pain. Patient was recently diagnosed and treated for pneumonia he also recently underwent colonoscopy for GI bleed and history of diverticulosis. He was found to have severe diverticulosis possible diverticulitis. He has been on antibiotics for some time, had diarrhea for 1 week duration which he states he went multiple times. He stated they were nonbloody. He has not had any further bowel movements since Saturday. At some point in his hospitalization he was started on Questran and he has remained on it even though he has not had any bowel movements. Abdominal bloating likely related to constipation from use of Questran. Patient has not had any diarrhea or bowel movement since Saturday. No plans on any endoscopic evaluation. Patient may benefit from MiraLAX as needed to resume his bowels. Current Visit: Yes Status: Acute Code(s): R14.0 - ABDOMINAL DISTENSION (GASEOUS) SNOMED Code(s): 871475723 (2) Diarrhea Narrative/Plan: Improved. Current Visit: Yes Status: Acute Code(s): R19.7 - DIARRHEA, UNSPECIFIED SNOMED Code(s): 90539838 Plan: 1. Continue symptomatic and supportive care 2. Discontinue Questran 3. MiraLAX as needed 4. Stool studies reviewed 5. No plans on endoscopic evaluation Thank you for this consultation, patient is cleared from gastroenterology for discharge. Dr. Benitez Olsen I agree with the dictator's note, documented as a scribe by Veronica Lopez.
== END 2021-06-22 16:30 | disposition home health service (06) | DRG 202 ==
LOC: EC 09:02 → 6NMEDSUR 12:12 → OBSVTOIN 06-20 08:10
PROVIDERS: ADMIT Family Medicine; ATTEND Family Medicine
DX: J45.901 Unspecified asthma with (acute) exacerbation (principal); I63.9 Cerebral infarction, unspecified; J18.9 Pneumonia, unspecified organism; K57.31 Diverticulosis of large intestine without perforation or abscess with bleeding; E87.1 Hypo-osmolality and hyponatremia; J44.0 Chronic obstructive pulmonary disease with (acute) lower respiratory infection; E78.5 Hyperlipidemia, unspecified; E87.6 Hypokalemia; F17.210 Nicotine dependence, cigarettes, uncomplicated; I50.9 Heart failure, unspecified; F32.A Depression, unspecified; F41.9 Anxiety disorder, unspecified; H70.90 Unspecified mastoiditis, unspecified ear; H91.90 Unspecified hearing loss, unspecified ear; I11.0 Hypertensive heart disease with heart failure; I25.10 Atherosclerotic heart disease of native coronary artery without angina pectoris; J40 Bronchitis, not specified as acute or chronic; I25.5 Ischemic cardiomyopathy; R51.9 Headache, unspecified; I27.20 Pulmonary hypertension, unspecified; I69.311 Memory deficit following cerebral infarction; I48.0 Paroxysmal atrial fibrillation; R60.9 Edema, unspecified; I49.3 Ventricular premature depolarization; K59.00 Constipation, unspecified; K21.9 Gastro-esophageal reflux disease without esophagitis; N64.4 Mastodynia; Z79.01 Long term (current) use of anticoagulants; Z79.51 Long term (current) use of inhaled steroids; Z79.82 Long term (current) use of aspirin; Z79.899 Other long term (current) drug therapy; Z82.49 Family history of ischemic heart disease and other diseases of the circulatory system; Z87.01 Personal history of pneumonia (recurrent); Z95.0 Presence of cardiac pacemaker; Z95.5 Presence of coronary angioplasty implant and graft; Z95.810 Presence of automatic (implantable) cardiac defibrillator; Z88.8 Allergy status to other drugs, medicaments and biological substances; Z88.1 Allergy status to other antibiotic agents; Z90.49 Acquired absence of other specified parts of digestive tract; Z98.42 Cataract extraction status, left eye; Z98.41 Cataract extraction status, right eye; Z87.19 Personal history of other diseases of the digestive system
CPT/HCPCS: 36415; 70450; 71045; 74019; 80048; 80053; 80061; 80076; 81001; 82565; 83735; 83880; 84132; 84145; 84484; 85025; 85027; 85610; 85730; 86140; 87040; 87070; 87205; 87324; 87449; 93005; 93970; 94640; 94760; 99285

== ENCOUNTER 2021-10-08 20:14 | Emergency (ER) | payer MEDICARE ==
--- NOTE | 2021-10-08 20:28 | ED ---
General Adult HPI <MarineTheodore D - Last Filed: 10/08/21 21:17> - General Source: RN notes reviewed, old records reviewed Limitations: no limitations <Adan Abrams Gurmeet - Last Filed: 10/08/21 22:27> - General Stated complaint: Cardiac issues Time Seen by Provider: 10/08/21 20:24 - History of Present Illness Initial comments: Dictation was produced using [employer] dictation software. please excuse any grammatical, word or spelling errors. Chief Complaint: 71-year-old male multiple comorbidities presents to the emergency department for multiple complaints. His complaints include weird visual hallucinations, abdominal swelling, chest pain and palpitations. History of Present Illness: 71-year-old male has multiple comorbidities. Patient has established history of atrial fibrillation. Patient was diagnosed with diverticulitis recently. Patient states he was placed on antibiotics. Patient was been on Augmentin. Patient states that he was supposed to have some sort of surgery however did not qualify due to his cardiac history. Reports that today he was playing beer games when all of a sudden his vision brought him to a place where he was talking to somebody else for a split second and suddenly went back to where he was. Patient states he has been having abdominal bloating. Denies any history of cirrhosis. Patient states he has some chest pain to his anterior chest that's worse with certain positions. He has been having palpitations. He does have history of cardiac disease. Denies any fevers. He also reports having troubles with urinating. States that his sensations of not getting all of his urine out. She denies any history of prostate issues. Patient denies any suicidal or homicidal ideation. The ROS documented in this emergency department record has been reviewed and confirmed by me. Those systems with pertinent positive or negative responses have been documented in the HPI. All other systems are other negative and/or noncontributory. PHYSICAL EXAM: General Impression: Alert and oriented x3, not in acute distress HEENT: Normocephalic atraumatic, extra-ocular movements intact, pupils equal and reactive to light bilaterally, mucous membranes moist. Cardiovascular: Heart regular rate and rhythm Chest: Able to complete full sentences, no retractions, no tachypnea, sit auscultation bilateral Abdomen: abdomen soft, non-tender, distended bladder, no organomegaly Musculoskeletal: Pulses present and equal in all extremities, no peripheral edema Motor: no focal deficits noted Neurological: CN II-XII grossly intact, no focal motor or sensory deficits noted, nonfocal, and age 0 Skin: Intact with no visualized rashes Psych: Normal affect and mood ED course: 71-year-old male with multiple comorbidities presents to emergency department for multiple complaints. Patient's well-appearing at the bedside. EMS report stable vital signs. Patient is on medications that are appropriate for atrial fibrillation. Patient is also on antibiotics for diverticulitis. His abdominal exam is benign. His physical examination is benign. He is in no acute distress. No concerns for active diverticulitis at this time. Point of care bedside ultrasound was performed showing no findings of ascites. There however does appear to be a distended urinary bladder. Patient states that he has not urinated 4 hours. He has a history of urinary retention. He is agreeable for Marquis catheter. Discharge summary from June 22 of this year's shows that patient was admitted to the hospital for atypical chest pain abdominal bloating. He was evaluated by multiple specialties including infectious disease, GI and cardiology. At that time was cleared by GI and cardiology. Infectious disease recommended patient be treated for pneumonia. Appears that patient does have a history of urinary retention.This x-ray shows some evidence of mild heart failure otherwise no significant change in the exam. Patient not showing signs of respiratory distress. EKG interpretation: Ventricular rate 86, sinus rhythm,. 194, QS 120, QTC 553. No MD prolongation, no QTC prolongation, no ST or T-wave changes noted. EKG compared to 06/16/2021 showing no changes. Overall, this EKG is unremarkable Patient care signed out to Dr. Cabezas (Theodore Hawthorne) - Related Data Home Medications Medication Instructions Recorded Confirmed Furosemide [Lasix] 20 mg PO DAILY 04/01/14 06/16/21 Mirtazapine 45 mg PO HS 04/01/14 06/16/21 Omeprazole 40 mg PO AC-BRKFST 04/01/14 06/16/21 QUEtiapine [SEROquel] 200 mg PO BID 04/01/14 06/16/21 Spironolactone [Aldactone] 25 mg PO DAILY 04/01/14 06/16/21 Budesonide/Formoterol Fumarate 2 puff INHALATION RT-BID 07/20/14 06/16/21 [Symbicort 160-4.5 Mcg Inhaler] Citalopram Hydrobromide [CeleXA] 10 mg PO DAILY 07/20/14 06/16/21 Levocetirizine Dihydrochloride 5 mg PO DAILY 07/20/14 06/16/21 Montelukast [Singulair] 10 mg PO HS 07/20/14 06/16/21 Apixaban [Eliquis] 5 mg PO BID 06/02/20 06/16/21 Atorvastatin [Lipitor] 20 mg PO DAILY 06/02/20 06/16/21 Nitroglycerin Sl Tabs [Nitrostat] 0.4 mg SL Q5M PRN 06/06/20 06/16/21 Albuterol Inhaler [Ventolin Hfa 2 puff INHALATION RT-QID PRN 05/29/21 06/16/21 Inhaler] Docusate [Colace] 100 mg PO DAILY 05/29/21 06/16/21 Verapamil HCl [Verapamil Sr] 120 mg PO DAILY 05/29/21 06/16/21 carvediloL [Coreg] 12.5 mg PO BID-W/MEALS 05/29/21 06/16/21 Fluticasone Nasal [place] [Flonase 2 spr EA NOSTRIL BID PRN 06/16/21 06/16/21 Nasal [place]] Previous Rx's Medication Instructions Recorded Aspirin 81 mg PO DAILY #30 chewable 06/04/20 Doxepin [SINEquan] 25 mg PO HS cap 06/06/21 Losartan [Cozaar] 50 mg PO DAILY #30 tab 06/06/21 Tamsulosin [Flomax] 0.4 mg PO PC-BRKFST #30 cap 06/06/21 Moxifloxacin HCl [Avelox] 400 mg PO DAILY 7 Days #7 tablet 06/22/21 Allergies Allergy/AdvReac Type Severity Reaction Status Date / Time Barbiturates Allergy Anaphylaxis Verified 06/16/21 10:21 levofloxacin [From Levaquin] Allergy Dyspnea & Verified 06/16/21 10:21 Leg Swelling and Pain & Headache Review of Systems ROS Other: All systems not noted in ROS Statement are negative. <Theodore Hawthorne - Last Filed: 10/08/21 21:17> ROS Other: All systems not noted in ROS Statement are negative. <JosekellyAdan Gurmeet - Last Filed: 10/08/21 22:27> ROS Statement: Those systems with pertinent positive or pertinent negative responses have been documented in the HPI. 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 Stovall, gout bilateral feet, occasional numbness L leg/L great toe, hx of PHIL with CPAP but no longer an issue since wt. 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 History of Any Multi-Drug Resistant Organisms: None Reported Past Surgical History: AICD, Cholecystectomy, Heart Catheterization, Heart Catheterization With Stent, Hernia Repair, Pacemaker, Tonsillectomy Additional Past Surgical History / Comment(s): 07/24/14 EGD/colonoscopy with polypectomy/bx, 2005 AICD/2014 AICD changed to medtronic, 2002 Cardiac stent in [place], 2007 cardiac cath [facility], upper teeth extracted for denture, L ear has tube, R ear plugged, cyst removed L eyelid, bilateral cataract removal, L ganglion cyst removal, L/R inguinal hernia repairs with mesh, penile implant. Past Anesthesia/Blood Transfusion Reactions: No Reported Reaction Date of Last Stent Placement:: 2002 Type of Cardiac Device: AICD Device Placement Date:: 2014 Additional Psychological History / Comment(s): Pt lives alone in an apartment. He uses no assistive device but wonders if he should. He states he has had no falls. He does not own a vehicle so he uses [facility] to get to appointments. He has a medication dispenser thru [facility]. Smoking Status: Former smoker Additional Past Alcohol Use History / Comment(s): Pt started smoking an occasional cigar a few years ago. - Past Family History Father Family Medical History: Coronary Artery Disease (CAD), Pneumonia Additional Family Medical History / Comment(s): Father of pneumonia at the age of 82 yrs. Mother Family Medical History: Liver Disease, Renal Disease Additional Family Medical History / Comment(s): father passed after a bout with pneumonia <MarineTheodore Calvillo - Last Filed: 10/08/21 21:17> General Exam General appearance: alert, in no apparent distress Head exam: Present: atraumatic, normocephalic, normal inspection Eye exam: Present: normal appearance, PERRL, EOMI. Absent: scleral icterus, conjunctival injection, periorbital swelling ENT exam: Present: normal exam, mucous membranes moist Neck exam: Present: normal inspection. Absent: tenderness, meningismus, lymphadenopathy Respiratory exam: Present: normal lung sounds bilaterally. Absent: respiratory distress, wheezes, rales, rhonchi, stridor Cardiovascular Exam: Present: regular rate, normal rhythm, normal heart sounds. Absent: systolic murmur, diastolic murmur, rubs, gallop, clicks GI/Abdominal exam: Present: soft, normal bowel sounds. Absent: distended, tenderness, guarding, rebound, rigid Extremities exam: Present: normal inspection, full ROM, normal capillary refill. Absent: tenderness, pedal edema, joint swelling, calf tenderness Back exam: Present: normal inspection Neurological exam: Present: alert, oriented X3, CN II-XII intact Psychiatric exam: Present: normal affect, normal mood Skin exam: Present: warm, dry, intact, normal color. Absent: rash <Adan Abrams - Last Filed: 10/08/21 22:27> Course <Adan Abrams - Last Filed: 10/08/21 22:27> Vital Signs 10/08/21 20:25 Temperature 98.4 F Pulse Rate 90 Respiratory 16 Rate Blood Pressure 152/109 O2 Sat by Pulse 97 Oximetry - Reevaluation(s) Reevaluation #1: 10/08/21 22:25 Medical record is reviewed (Adan Abrams) Reevaluation #2: 10/08/21 22:25 Marquis catheter placed, good output, patient will be sent home with leg bag (Adan Abrams) Reevaluation #3: 10/08/21 22:25 Patient feels improved good strength able to ambulate (Adan Abrams) Medical Decision Making - Lab Data Result diagrams: 10/08/21 20:25 <Theodore Hawthorne - Last Filed: 10/08/21 21:17> - Lab Data Result diagrams: 10/08/21 20:25 10/08/21 21:36 - Radiology Data Radiology results: report reviewed (Chest x-rays negative for acute disease), image reviewed <Adan Abrams - Last Filed: 10/08/21 22:27> - Medical Decision Making 71 male to the emergency department for evaluation of multiple complaints, nonspecific low electrolytes which will be replaced. Patient also has foot catheter placed here in the ER sent home with leg bag will follow-up with urology (Adan Abrams) - Lab Data Lab Results 10/08/21 10/08/21 10/08/21 Range/Units 20:25 21:36 21:36 WBC 7.7 (3.8-10.6) k/uL RBC 4.94 (4.30-5.90) m/uL Hgb 14.5 (13.0-17.5) gm/dL Hct 43.3 (39.0-53.0) % MCV 87.7 (80.0-100.0) fL MCH 29.3 (25.0-35.0) pg MCHC 33.5 (31.0-37.0) g/dL RDW 15.6 H (11.5-15.5) % Plt Count 295 (150-450) k/uL MPV 9.2 Neutrophils % 68 % Lymphocytes % 21 % Monocytes % 7 % Eosinophils % 2 % Basophils % 0 % Neutrophils # 5.2 (1.3-7.7) k/uL Lymphocytes # 1.6 (1.0-4.8) k/uL Monocytes # 0.5 (0-1.0) k/uL Eosinophils # 0.2 (0-0.7) k/uL Basophils # 0.0 (0-0.2) k/uL PT 11.9 (9.0-12.0) sec INR 1.1 (<1.2) APTT 25.1 (22.0-30.0) sec Sodium 132 L (137-145) mmol/L Potassium 3.1 L (3.5-5.1) mmol/L Chloride 92 L (98-107) mmol/L Carbon Dioxide 30 (22-30) mmol/L Anion Gap 10 mmol/L BUN 12 (9-20) mg/dL Creatinine 0.95 (0.66-1.25) mg/dL Est GFR (CKD-EPI)AfAm >90 (>60 ml/min/1.73 sqM) Est GFR (CKD-EPI)NonAf 81 (>60 ml/min/1.73 sqM) Glucose 112 H (74-99) mg/dL Calcium 8.9 (8.4-10.2) mg/dL Magnesium 1.2 L (1.6-2.3) mg/dL Total Bilirubin 0.8 (0.2-1.3) mg/dL AST 28 (17-59) U/L ALT 20 (4-49) U/L Alkaline Phosphatase 86 (38-126) U/L Ammonia (<30) umol/L Total Protein 7.2 (6.3-8.2) g/dL Albumin 4.1 (3.5-5.0) g/dL 10/08/21 Range/Units 21:36 WBC (3.8-10.6) k/uL RBC (4.30-5.90) m/uL Hgb (13.0-17.5) gm/dL Hct (39.0-53.0) % MCV (80.0-100.0) fL MCH (25.0-35.0) pg MCHC (31.0-37.0) g/dL RDW (11.5-15.5) % Plt Count (150-450) k/uL MPV Neutrophils % % Lymphocytes % % Monocytes % % Eosinophils % % Basophils % % Neutrophils # (1.3-7.7) k/uL Lymphocytes # (1.0-4.8) k/uL Monocytes # (0-1.0) k/uL Eosinophils # (0-0.7) k/uL Basophils # (0-0.2) k/uL PT (9.0-12.0) sec INR (<1.2) APTT (22.0-30.0) sec Sodium (137-145) mmol/L Potassium (3.5-5.1) mmol/L Chloride (98-107) mmol/L Carbon Dioxide (22-30) mmol/L Anion Gap mmol/L BUN (9-20) mg/dL Creatinine (0.66-1.25) mg/dL Est GFR (CKD-EPI)AfAm (>60 ml/min/1.73 sqM) Est GFR (CKD-EPI)NonAf (>60 ml/min/1.73 sqM) Glucose (74-99) mg/dL Calcium (8.4-10.2) mg/dL Magnesium (1.6-2.3) mg/dL Total Bilirubin (0.2-1.3) mg/dL AST (17-59) U/L ALT (4-49) U/L Alkaline Phosphatase (38-126) U/L Ammonia <9 (<30) umol/L Total Protein (6.3-8.2) g/dL Albumin (3.5-5.0) g/dL Disposition <Theodore Hawthorne - Last Filed: 10/08/21 21:17> Is patient prescribed a controlled substance at d/c from ED?: No Time of Disposition: 10:30 <Adan Abrams - Last Filed: 10/08/21 22:27> Clinical Impression: Hypomagnesemia syndrome, Dizziness, Hypokalemia, Urinary retention Disposition: HOME SELF-CARE Condition: Fair Instructions (If sedation given, give patient instructions): Urinary Retention in Men (ED) Referrals: Hudson Moran MD [STAFF PHYSICIAN] - 1-2 days Wilfrido Cuba MD [STAFF PHYSICIAN] - 1-2 days
[2021-10-08 20:29] VITALS: BP 152/109; PULSE 90; RESP 16; TEMP 98.4
[2021-10-08 21:03] LABS: Basophils % (A) 0 %; Eosinophils # (A) 0.2 k/uL (0-0.7); Eosinophils % (A) 2 %; HCT 43.3 % (39.0-53.0); HGB 14.5 gm/dL (13.0-17.5); Lymphocytes # (A) 1.6 k/uL (1.0-4.8); Lymphocytes % (A) 21 %; MCH 29.3 pg (25.0-35.0); MCHC 33.5 g/dL (31.0-37.0); MCV 87.7 fL (80.0-100.0); Mean Platelet Volume 9.2; Monocytes # (A) 0.5 k/uL (0-1.0); Monocytes % (A) 7 %; Neutrophils # (A) 5.2 k/uL (1.3-7.7); Neutrophils % (A) 68 %; Platelet Count 295 k/uL (150-450); RBC 4.94 m/uL (4.30-5.90); RDW 15.6 % (11.5-15.5); WBC 7.7 k/uL (3.8-10.6)
--- NOTE | 2021-10-08 21:11 | XR ---
EXAMINATION TYPE: XR chest 1V portable DATE OF EXAM: 10/08/2021 COMPARISON: 10/02/2021 HISTORY: Chest pain TECHNIQUE: FINDINGS: Heart is enlarged. There is mild pulmonary vascular congestion. There is left axillary pace maker. There is mild blunting of the costophrenic angles. There is poor inspiration with basilar atel ectasis. IMPRESSION: There is evidence for some mild heart failure and no significant change compared to recen t exam.
[2021-10-08 22:04] LABS: INR 1.1 (<1.2); Partial Thromboplastin Time 25.1 sec (22.0-30.0); Prothrombin Time 11.9 sec (9.0-12.0)
[2021-10-08 22:19] LABS: ALT 20 U/L (4-49); AST 28 U/L (17-59); African American GFR (CKD) >90 (>60 ml/min/1.73 sqM); Albumin 4.1 g/dL (3.5-5.0); Alkaline Phosphatase 86 U/L (38-126); Anion Gap 10 mmol/L; Blood Urea Nitrogen 12 mg/dL (9-20); Calcium 8.9 mg/dL (8.4-10.2); Carbon Dioxide 30 mmol/L (22-30); Chloride 92 mmol/L (98-107); Glucose 112 mg/dL (74-99); Magnesium 1.2 mg/dL (1.6-2.3); Non-African American GFR(CKD) 81 (>60 ml/min/1.73 sqM); Potassium 3.1 mmol/L (3.5-5.1); Sodium 132 mmol/L (137-145); Total Bilirubin 0.8 mg/dL (0.2-1.3); Total Protein 7.2 g/dL (6.3-8.2)
[2021-10-08] MEDS ORDERED: POTASSIUM BICARBONATE/CIT AC 20 MEQ TABLET.EFF PO STA ×2 (22:24)
[2021-10-08] MEDS ORDERED: MAGNESIUM OXIDE 400 MG TAB PO STA ×2 (22:24)
== END 2021-10-09 08:19 | disposition home or self-care (01) ==
LOC: EC 20:14
DX: E83.42 Hypomagnesemia (principal); E87.6 Hypokalemia; R33.9 Retention of urine, unspecified; R42 Dizziness and giddiness; J45.909 Unspecified asthma, uncomplicated; I10 Essential (primary) hypertension; E78.5 Hyperlipidemia, unspecified; K21.9 Gastro-esophageal reflux disease without esophagitis; Z79.83 Long term (current) use of bisphosphonates; Z88.4 Allergy status to anesthetic agent; Z88.1 Allergy status to other antibiotic agents
CPT/HCPCS: 36415; 71045; 80053; 82140; 83735; 84484; 85025; 85610; 85730; 99285

== ENCOUNTER 2021-10-13 10:26 | Emergency (ER) | payer MEDICARE ==
[2021-10-13] MEDS ORDERED: TAMSULOSIN 0.4 MG CAP.ER.24H PO STA (10:52)
--- NOTE | 2021-10-13 11:05 | ED ---
Male Urogenital HPI - General Chief complaint: Recheck/Abnormal Lab/Rx Stated complaint: Bladder issues, Dizziness, SOB Time Seen by Provider: 10/13/21 10:33 Source: patient, RN notes reviewed Mode of arrival: ambulatory Limitations: no limitations - History of Present Illness Initial comments: This is a 71-year-old male who presents to the emergency department for penile pain. He had a Marquis catheter placed here 5 days ago due to urinary retention. He does have a known history of urinary retention, the patient is not sure why this occurs, but is unaware of any prostate issues. States that over the last couple of days, he has had significant irritation around the urethra. He has also noticed mucus-like drainage with a foul odor. He is unsure when his upcoming appointment with urology is. Denies any fevers, chills, sore throat, cough, dyspnea, chest pain, palpitations, abdominal pain, nausea, vomiting, diarrhea, back pain, or h eadaches. MD Complaint: penile discharge, other (penile pain) Onset/Timin -: days(s) Location: penis Reports: discharge, swelling - Related Data Home Medications Medication Instructions Recorded Confirmed Furosemide [Lasix] 20 mg PO DAILY 04/01/14 06/16/21 Mirtazapine 45 mg PO HS 04/01/14 06/16/21 Omeprazole 40 mg PO AC-BRKFST 04/01/14 06/16/21 QUEtiapine [SEROquel] 200 mg PO BID 04/01/14 06/16/21 Spironolactone [Aldactone] 25 mg PO DAILY 04/01/14 06/16/21 Budesonide/Formoterol Fumarate 2 puff INHALATION RT-BID 07/20/14 06/16/21 [Symbicort 160-4.5 Mcg Inhaler] Citalopram Hydrobromide [CeleXA] 10 mg PO DAILY 07/20/14 06/16/21 Levocetirizine Dihydrochloride 5 mg PO DAILY 07/20/14 06/16/21 Montelukast [Singulair] 10 mg PO HS 07/20/14 06/16/21 Apixaban [Eliquis] 5 mg PO BID 06/02/20 06/16/21 Atorvastatin [Lipitor] 20 mg PO DAILY 06/02/20 06/16/21 Nitroglycerin Sl Tabs [Nitrostat] 0.4 mg SL Q5M PRN 06/06/20 06/16/21 Albuterol Inhaler [Ventolin Hfa 2 puff INHALATION RT-QID PRN 05/29/21 06/16/21 Inhaler] Docusate [Colace] 100 mg PO DAILY 05/29/21 06/16/21 Verapamil HCl [Verapamil Sr] 120 mg PO DAILY 05/29/21 06/16/21 carvediloL [Coreg] 12.5 mg PO BID-W/MEALS 05/29/21 06/16/21 Fluticasone Nasal [place] [Flonase 2 spr EA NOSTRIL BID PRN 06/16/21 06/16/21 Nasal Effort] Previous Rx's Medication Instructions Recorded Aspirin 81 mg PO DAILY #30 chewable 06/04/20 Doxepin [SINEquan] 25 mg PO HS cap 06/06/21 Losartan [Cozaar] 50 mg PO DAILY #30 tab 06/06/21 Tamsulosin [Flomax] 0.4 mg PO PC-BRKFST #30 cap 06/06/21 Moxifloxacin HCl [Avelox] 400 mg PO DAILY 7 Days #7 tablet 06/22/21 cefUROXime axetiL [Ceftin] 500 mg PO BID 7 Days #14 tab 10/13/21 Allergies Allergy/AdvReac Type Severity Reaction Status Date / Time Barbiturates Allergy Anaphylaxis Verified 10/13/21 10:32 levofloxacin [From Levaquin] Allergy Dyspnea & Verified 10/13/21 10:32 Leg Swelling and Pain & Headache Review of Systems ROS Statement: Those systems with pertinent positive or pertinent negative responses have been documented in the HPI. ROS Other: All systems not noted in ROS Statement are negative. 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 Stovall, gout bilateral feet, occasional numbness L leg/L great toe, hx of PHIL with CPAP but no longer an issue since wt. 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 History of Any Multi-Drug Resistant Organisms: None Reported Past Surgical History: AICD, Cholecystectomy, Heart Catheterization, Heart Catheterization With Stent, Hernia Repair, Pacemaker, Tonsillectomy Additional Past Surgical History / Comment(s): 07/24/14 EGD/colonoscopy with polypectomy/bx, 2005 AICD/2014 AICD changed to medtronic, 2002 Cardiac stent in [place], 2007 cardiac cath [facility], upper teeth extracted for denture, L ear has tube, R ear plugged, cyst removed L eyelid, bilateral cataract removal, L ganglion cyst removal, L/R inguinal hernia repairs with mesh, penile implant. Past Anesthesia/Blood Transfusion Reactions: No Reported Reaction Date of Last Stent Placement:: 2002 Type of Cardiac Device: AICD Device Placement Date:: 2014 Past Psychological History: Anxiety, Depression Smoking Status: Former smoker Past Alcohol Use History: None Reported Past Drug Use History: None Reported - Past Family History Father Family Medical History: Coronary Artery Disease (CAD), Pneumonia Additional Family Medical History / Comment(s): Father of pneumonia at the age of 82 yrs. Mother Family Medical History: Liver Disease, Renal Disease Additional Family Medical History / Comment(s): father passed after a bout with pneumonia General Exam Limitations: no limitations General appearance: alert, in no apparent distress Head exam: Present: atraumatic, normocephalic, normal inspection Respiratory exam: Present: normal lung sounds bilaterally. Absent: respiratory distress, wheezes, rales, rhonchi, stridor Cardiovascular Exam: Present: regular rate, normal rhythm, normal heart sounds. Absent: systolic murmur, diastolic murmur, rubs, gallop, clicks exam: Present: other (Marquis catheter in place with mucopurulent discharge from the urethral meatus. Tenderness around the urethral meatus. No areas of open or cracked skin.) Neurological exam: Present: alert, oriented X3, CN II-XII intact Psychiatric exam: Present: normal affect, normal mood Skin exam: Present: warm, dry, intact, normal color. Absent: rash Course Vital Signs 10/13/21 10/13/21 10:29 11:24 Temperature 98.5 F 98.4 F Pulse Rate 70 72 Respiratory 20 18 Rate Blood Pressure 108/65 112/62 O2 Sat by Pulse 98 99 Oximetry Medical Decision Making - Medical Decision Making This is a 71-year-old male presents emergency department for penile pain associated with Marquis catheter placement. Discussed the risks and benefits of the catheter removal. Patient requests to have the Marquis catheter removed. Instructed the patient to return to the emergency department if he does not produce any urine within 24 hours, as he'll need to have another Marquis catheter placed. He was given a dose of Flomax and Ceftriaxone in the emergency department. Ceftriaxone was administered given the likelihood of infection, as he has mucopurulent discharge from the urethral meatus. Prescription for Ceftin sent to the pharmacy as well. Ceftin was chosen, as the patient has been on antibiotics recently and this is considered a complicated infection due to the Marquis catheter placement and the patient's multiple comorbidities. The dizziness and shortness of breath listed in the patient's chief complaint by triage is not true according to the patient. States that he is here strictly due to the penile pain. Return precautions reviewed in depth, the patient is instructed to return to the emergency department with any new, worsening, or concerning symptoms. Patient verbalized understanding. This case was discussed in detail with the attending ED physician. Presentation, findings, and treatment plan discussed in detail as well. - Lab Data Lab Results 10/13/21 Range/Units 11:14 Urine Color Yellow Urine Appearance Cloudy (Clear) Urine pH 7.0 (5.0-8.0) Ur Specific [place] 1.011 (1.001-1.035) Urine Protein 3+ H (Negative) Urine Glucose (UA) Negative (Negative) Urine Ketones Negative (Negative) Urine Blood Large H (Negative) Urine Nitrite Negative (Negative) Urine Bilirubin Negative (Negative) Urine Urobilinogen <2.0 (<2.0) mg/dL Ur Leukocyte Esterase Small H (Negative) Urine RBC >182 H (0-5) /hpf Urine WBC 7 H (0-5) /hpf Amorphous Sediment Rare H (None) /hpf Hyaline Casts 3 H (0-2) /lpf Urine Mucus Few H (None) /hpf Disposition Clinical Impression: Marquis catheter problem Disposition: HOME SELF-CARE Instructions (If sedation given, give patient instructions): Urinary Retention in Men (ED) Additional Instructions: Return to the emergency department with any new, worsening, or concerning symptoms. Take the antibiotic twice daily for 7 days. If you do not urinate in less than 24 hours or you experience abdominal pain/swelling, make sure you return to the emergency department, as you will need another Marquis catheter placed. Follow up with urology as scheduled. Prescriptions: cefUROXime axetiL [Ceftin] 500 mg PO BID 7 Days #14 tab Is patient prescribed a controlled substance at d/c from ED?: No Referrals: Roxanna Patel MD [Primary Care Provider] - 1-2 days
[2021-10-13] MEDS ORDERED: cefTRIAXone 1,000 MG VIAL (IM USE) IM STA (11:11)
[2021-10-13 11:27] VITALS: BP 112/62; PULSE 72; RESP 18; TEMP 98.4
[2021-10-13 11:42] LABS: Amorphous Sediment,Urine Rare /hpf; Appearance,Urine Cloudy (Clear); Bilirubin,Urine Negative (Negative); Blood,Urine Large (Negative); Color,Urine Yellow; Glucose,Urine (UA) Negative (Negative); Hyaline Casts,Urine 3 /lpf (0-2); Ketones,Urine Negative (Negative); Leukocyte Esterase,Urine Small (Negative); Mucus,Urine Few /hpf; Nitrite,Urine Negative (Negative); Protein,Urine 3+ (Negative); RBC,Urine >182 /hpf (0-5); Specific Gravity,Urine 1.011 (1.001-1.035); Urobilinogen,Urine <2.0 mg/dL (<2.0); WBC,Urine 7 /hpf (0-5)
== END 2021-10-13 11:28 | disposition home or self-care (01) ==
LOC: EC 10:26
DX: T83.84XA Pain due to genitourinary prosthetic devices, implants and grafts, initial encounter (principal); J45.909 Unspecified asthma, uncomplicated; I11.0 Hypertensive heart disease with heart failure; J44.9 Chronic obstructive pulmonary disease, unspecified; Z86.73 Personal history of transient ischemic attack (TIA), and cerebral infarction without residual deficits; I50.9 Heart failure, unspecified; K21.9 Gastro-esophageal reflux disease without esophagitis; E78.5 Hyperlipidemia, unspecified; I25.10 Atherosclerotic heart disease of native coronary artery without angina pectoris; F32.A Depression, unspecified; F41.9 Anxiety disorder, unspecified; Z87.891 Personal history of nicotine dependence; Z88.4 Allergy status to anesthetic agent; Z88.1 Allergy status to other antibiotic agents; Z79.899 Other long term (current) drug therapy; Z79.82 Long term (current) use of aspirin
CPT/HCPCS: 81001; 99283; 96372; J0696

== ENCOUNTER 2021-10-14 13:25 | Emergency (ER) | payer MEDICARE ==
[2021-10-14 16:11] LABS: Basophils # (A) 0.1 k/uL (0-0.2); Basophils % (A) 1 %; Eosinophils # (A) 0.2 k/uL (0-0.7); Eosinophils % (A) 3 %; HGB 12.6 gm/dL (13.0-17.5); Lymphocytes # (A) 2.1 k/uL (1.0-4.8); Lymphocytes % (A) 30 %; MCH 27.6 pg (25.0-35.0); MCHC 31.5 g/dL (31.0-37.0); MCV 87.9 fL (80.0-100.0); Monocytes # (A) 0.6 k/uL (0-1.0); Monocytes % (A) 8 %; Neutrophils # (A) 3.9 k/uL (1.3-7.7); Neutrophils % (A) 56 %; Platelet Count 275 k/uL (150-450); RBC 4.55 m/uL (4.30-5.90); RDW 14.8 % (11.5-15.5)
[2021-10-14 16:23] LABS: Appearance,Urine Clear (Clear); Bacteria,Urine Rare /hpf; Bilirubin,Urine Negative (Negative); Blood,Urine Moderate (Negative); Color,Urine Light Yellow; Glucose,Urine (UA) Negative (Negative); Ketones,Urine Negative (Negative); Leukocyte Esterase,Urine Negative (Negative); Mucus,Urine Rare /hpf; Nitrite,Urine Negative (Negative); Protein,Urine Negative (Negative); RBC,Urine 11 /hpf (0-5); Specific Gravity,Urine 1.004 (1.001-1.035); Urobilinogen,Urine <2.0 mg/dL (<2.0); WBC,Urine 1 /hpf (0-5)
[2021-10-14 16:38] LABS: ALT 19 U/L (4-49); AST 23 U/L (17-59); African American GFR (CKD) >90 (>60 ml/min/1.73 sqM); Albumin 3.9 g/dL (3.5-5.0); Alkaline Phosphatase 92 U/L (38-126); Anion Gap 9 mmol/L; Blood Urea Nitrogen 11 mg/dL (9-20); Calcium 8.8 mg/dL (8.4-10.2); Carbon Dioxide 27 mmol/L (22-30); Chloride 94 mmol/L (98-107); Glucose 89 mg/dL (74-99); Magnesium 1.3 mg/dL (1.6-2.3); Non-African American GFR(CKD) >90 (>60 ml/min/1.73 sqM); Potassium 2.9 mmol/L (3.5-5.1); Sodium 130 mmol/L (137-145); Total Bilirubin 0.5 mg/dL (0.2-1.3); Total Protein 6.8 g/dL (6.3-8.2)
[2021-10-14] MEDS ORDERED: Potassium Replacement Protocol 1 EACH MISC MISCELLANE PRN (16:54)
[2021-10-14] MEDS ORDERED: MAGNESIUM SULFATE-D5W PMX 1 GM in DEXTROSE/WATER 1 100ML.BAG IVPB ONE (17:05)
[2021-10-14] MEDS ORDERED: KETOROLAC 15 MG/ML 1 ML VIAL IVP STA (17:26)
[2021-10-14] MEDS: POTASSIUM CHLORIDE ER 20 MEQ TAB.ER PO SCH ×2 (18:43→19:40)
--- NOTE | 2021-10-14 19:50 | ED ---
General Adult HPI - General Chief complaint: Dizziness Stated complaint: Urinary retention Time Seen by Provider: 10/14/21 14:18 Source: patient Mode of arrival: EMS Limitations: no limitations - History of Present Illness Initial comments: Patient is a 71-year-old male presenting with chief complaint of urinary retention. Patient was seen here yesterday complaining of pain in his penis because of his Marquis catheter that he had placed 2 weeks ago, patient was explained the risks of removing the catheter and chose to have it removed. Patient states that he has not been able to urinate since. He admits to some lower abdominal pain over the bladder. He has noticed some discharge from the urethral meatus. Patient follows with urology, sees Dr. Hastings. Has a history of penile implant. He denies fever, chills, nausea, vomiting, chest pain, shor tness of breath, dizziness, weakness, hematuria, melena, hematochezia, diarrhea. - Related Data Home Medications Medication Instructions Recorded Confirmed Furosemide [Lasix] 20 mg PO DAILY 04/01/14 06/16/21 Mirtazapine 45 mg PO HS 04/01/14 06/16/21 Omeprazole 40 mg PO AC-BRKFST 04/01/14 06/16/21 QUEtiapine [SEROquel] 200 mg PO BID 04/01/14 06/16/21 Spironolactone [Aldactone] 25 mg PO DAILY 04/01/14 06/16/21 Budesonide/Formoterol Fumarate 2 puff INHALATION RT-BID 07/20/14 06/16/21 [Symbicort 160-4.5 Mcg Inhaler] Citalopram Hydrobromide [CeleXA] 10 mg PO DAILY 07/20/14 06/16/21 Levocetirizine Dihydrochloride 5 mg PO DAILY 07/20/14 06/16/21 Montelukast [Singulair] 10 mg PO HS 07/20/14 06/16/21 Apixaban [Eliquis] 5 mg PO BID 06/02/20 06/16/21 Atorvastatin [Lipitor] 20 mg PO DAILY 06/02/20 06/16/21 Nitroglycerin Sl Tabs [Nitrostat] 0.4 mg SL Q5M PRN 06/06/20 06/16/21 Albuterol Inhaler [Ventolin Hfa 2 puff INHALATION RT-QID PRN 05/29/21 06/16/21 Inhaler] Docusate [Colace] 100 mg PO DAILY 05/29/21 06/16/21 Verapamil HCl [Verapamil Sr] 120 mg PO DAILY 05/29/21 06/16/21 carvediloL [Coreg] 12.5 mg PO BID-W/MEALS 05/29/21 06/16/21 Fluticasone Nasal [place] [Flonase 2 spr EA NOSTRIL BID PRN 06/16/21 06/16/21 Nasal [place]] Previous Rx's Medication Instructions Recorded Aspirin 81 mg PO DAILY #30 chewable 06/04/20 Doxepin [SINEquan] 25 mg PO HS cap 06/06/21 Losartan [Cozaar] 50 mg PO DAILY #30 tab 06/06/21 Tamsulosin [Flomax] 0.4 mg PO PC-BRKFST #30 cap 06/06/21 Moxifloxacin HCl [Avelox] 400 mg PO DAILY 7 Days #7 tablet 06/22/21 cefUROXime axetiL [Ceftin] 500 mg PO BID 7 Days #14 tab 10/13/21 Potassium Chloride [K-Tab ER] 20 meq PO DAILY 5 Days #5 tab 10/14/21 Allergies Allergy/AdvReac Type Severity Reaction Status Date / Time Barbiturates Allergy Anaphylaxis Verified 10/14/21 13:31 levofloxacin [From Levaquin] Allergy Dyspnea & Verified 10/14/21 13:31 Leg Swelling and Pain & Headache Review of Systems ROS Statement: Those systems with pertinent positive or pertinent negative responses have been documented in the HPI. ROS Other: All systems not noted in ROS Statement are negative. 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 Stovall, gout bilateral feet, occasional numbness L leg/L great toe, hx of PHIL with CPAP but no longer an issue since wt. 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 History of Any Multi-Drug Resistant Organisms: None Reported Past Surgical History: AICD, Cholecystectomy, Heart Catheterization, Heart Catheterization With Stent, Hernia Repair, Pacemaker, Tonsillectomy Additional Past Surgical History / Comment(s): 07/24/14 EGD/colonoscopy with polypectomy/bx, 2005 AICD/2014 AICD changed to medtronic, 2002 Cardiac stent in [place], 2007 cardiac cath [facility], upper teeth extracted for denture, L ear has tube, R ear plugged, cyst removed L eyelid, bilateral cataract removal, L ganglion cyst removal, L/R inguinal hernia repairs with mesh, penile implant. Past Anesthesia/Blood Transfusion Reactions: No Reported Reaction Date of Last Stent Placement:: 2002 Type of Cardiac Device: AICD Device Placement Date:: 2014 Past Psychological History: Anxiety, Depression Smoking Status: Former smoker Past Alcohol Use History: None Reported Past Drug Use History: None Reported - Past Family History Father Family Medical History: Coronary Artery Disease (CAD), Pneumonia Additional Family Medical History / Comment(s): Father of pneumonia at the age of 82 yrs. Mother Family Medical History: Liver Disease, Renal Disease Additional Family Medical History / Comment(s): father passed after a bout with pneumonia General Exam Limitations: no limitations General appearance: alert, in no apparent distress Head exam: Present: atraumatic, normocephalic, normal inspection Eye exam: Present: normal appearance, EOMI. Absent: scleral icterus, periorbital swelling Neck exam: Present: normal inspection Respiratory exam: Present: normal lung sounds bilaterally. Absent: respiratory distress, wheezes, rales, rhonchi, stridor Cardiovascular Exam: Present: regular rate, normal rhythm, normal heart sounds. Absent: systolic murmur, diastolic murmur, rubs, gallop, clicks GI/Abdominal exam: Present: soft. Absent: distended, tenderness, guarding, rebound, rigid exam: Present: urethral discharge. Absent: testicular tenderness, scrotal swelling Neurological exam: Present: alert, oriented X3, CN II-XII intact Psychiatric exam: Present: normal affect, normal mood Skin exam: Present: warm, dry, intact, normal color. Absent: rash Course Vital Signs 10/14/21 10/14/21 14:00 20:14 Temperature 97.3 F L 97.2 F L Pulse Rate 71 68 Respiratory 16 18 Rate Blood Pressure 157/84 135/88 O2 Sat by Pulse 97 97 Oximetry EKG Findings - EKG Comments: EKG Findings:: Sinus rhythm with frequent ventricular premature complexes. Rate of 75. AK interval 182. QRS duration 122. QTC 453. Left axis deviation. No acute ischemic changes. This EKG was also shown to and interpreted by my at tending Dr. Nino. Medical Decision Making - Medical Decision Making Patient is a 71-year-old male presenting with chief complaint of "I can't pee". Patient had a urinary catheter removed yesterday due to penile discomfort, however after removal patient has not been able to urinate. He admits to discharge from the urethral meatus. On inspection there is some purulent discharge, patient has a penile implant. Bladder scan showed over 1 L of fluid, Marquis catheter was replaced and patient began draining about 3 L of fluid. EKG was obtained, patient has known history of atrial fibrillation, EKG showed multiple PVCs. Electrolytes were obtained, patient was found to have potassium of 2.9 and magnesium of 1.3. Patient was given potassium and magnesium here in the ER. He'll be discharged with potassium 20 mEq once daily for 5 days. Instructed to follow-up with PCP for repeat potassium and magnesium levels. Follow-up with urologist regarding urinary retention and catheter. Report back to ER with any new or worsening symptoms. Discussed return parameters and answered all questions. Patient conveyed verbal understanding and agreed to the plan. I discussed this case with my attending Dr. Nino. I clarified with the patient that he is not experiencing any dizziness at this time as stated in the chief complaint. Patient confirms that he is experiencing no other symptoms outside of urinary retention and related lower abdominal pain. - Lab Data Result diagrams: 10/14/21 15:22 10/14/21 15: Lab Results 10/14/21 10/14/21 10/14/21 Range/Units 15:22 15:22 15: WBC 7.0 (3.8-10.6) k/uL RBC 4.55 (4.30-5.90) m/uL Hgb 12.6 L (13.0-17.5) gm/dL Hct 40.0 (39.0-53.0) % MCV 87.9 (80.0-100.0) fL MCH 27.6 (25.0-35.0) pg MCHC 31.5 (31.0-37.0) g/dL RDW 14.8 (11.5-15.5) % Plt Count 275 (150-450) k/uL MPV 9.0 Neutrophils % 56 % Lymphocytes % 30 % Monocytes % 8 % Eosinophils % 3 % Basophils % 1 % Neutrophils # 3.9 (1.3-7.7) k/uL Lymphocytes # 2.1 (1.0-4.8) k/uL Monocytes # 0.6 (0-1.0) k/uL Eosinophils # 0.2 (0-0.7) k/uL Basophils # 0.1 (0-0.2) k/uL Sodium 130 L (137-145) mmol/L Potassium 2.9 L (3.5-5.1) mmol/L Chloride 94 L (98-107) mmol/L Carbon Dioxide 27 (22-30) mmol/L Anion Gap 9 mmol/L BUN 11 (9-20) mg/dL Creatinine 0.78 (0.66-1.25) mg/dL Est GFR (CKD-EPI)AfAm >90 (>60 ml/min/1.73 sqM) Est GFR (CKD-EPI)NonAf >90 (>60 ml/min/1.73 sqM) Glucose 89 (74-99) mg/dL Calcium 8.8 (8.4-10.2) mg/dL Magnesium 1.3 L (1.6-2.3) mg/dL Total Bilirubin 0.5 (0.2-1.3) mg/dL AST 23 (17-59) U/L ALT 19 (4-49) U/L Alkaline Phosphatase 92 (38-126) U/L Total Protein 6.8 (6.3-8.2) g/dL Albumin 3.9 (3.5-5.0) g/dL Urine Color Light Yellow Urine Appearance Clear (Clear) Urine pH 7.0 (5.0-8.0) Ur Specific [place] 1.004 (1.001-1.035) Urine Protein Negative (Negative) Urine Glucose (UA) Negative (Negative) Urine Ketones Negative (Negative) Urine Blood Moderate H (Negative) Urine Nitrite Negative (Negative) Urine Bilirubin Negative (Negative) Urine Urobilinogen <2.0 (<2.0) mg/dL Ur Leukocyte Esterase Negative (Negative) Urine RBC 11 H (0-5) /hpf Urine WBC 1 (0-5) /hpf Urine Bacteria Rare H (None) /hpf Urine Mucus Rare H (None) /hpf Disposition Clinical Impression: Urinary retention, Hypokalemia Disposition: HOME SELF-CARE Condition: Fair Instructions (If sedation given, give patient instructions): Urinary Retention in Men (ED), Hypokalemia (ED) Additional Instructions: Follow-up with PCP in one to 2 days for recheck all of potassium and magnesium levels. Report back to ER with any new or worsening symptoms. Take potassium pills as prescribed. Follow up with your urologist regarding urinary catheter and urinary retention. Continue taking the antibiotics prescribed to which her previous visit. Prescriptions: Potassium Chloride [K-Tab ER] 20 meq PO DAILY 5 Days #5 tab Is patient prescribed a controlled substance at d/c from ED?: No Referrals: oRxanna Patel MD [Primary Care Provider] - 1-2 days Time of Disposition: 19:50
[2021-10-14 20:16] VITALS: BP 135/88; PULSE 68; RESP 18; TEMP 97.2
== END 2021-10-14 20:20 | disposition home or self-care (01) ==
LOC: EC 13:25
DX: R33.9 Retention of urine, unspecified (principal); E87.6 Hypokalemia; I48.91 Unspecified atrial fibrillation; I11.0 Hypertensive heart disease with heart failure; I50.9 Heart failure, unspecified; E78.5 Hyperlipidemia, unspecified; K21.9 Gastro-esophageal reflux disease without esophagitis; H91.90 Unspecified hearing loss, unspecified ear; Z86.73 Personal history of transient ischemic attack (TIA), and cerebral infarction without residual deficits; Z88.8 Allergy status to other drugs, medicaments and biological substances; Z88.1 Allergy status to other antibiotic agents; Z79.899 Other long term (current) drug therapy; Z79.51 Long term (current) use of inhaled steroids; Z79.01 Long term (current) use of anticoagulants
CPT/HCPCS: 36415; 93005; 80053; 83735; 85025; 81001; 99284; 96365; 96375; 51702; J3475; J1885

== ENCOUNTER 2021-10-16 13:41 | Inpatient (IN) | payer MEDICARE ==
--- NOTE | 2021-10-16 13:51 | ED ---
General Adult HPI - General Stated complaint: Chest pain/AICD keeps going off Time Seen by Provider: 10/16/21 13:44 - History of Present Illness Initial comments: Dictation was produced using [employer] dictation software. please excuse any grammatical, word or spelling errors. Chief Complaint: 71-year-old male instructed to come to the emergency department by leasing manager for AICD firing History of Present Illness: Patient 71-year-old male he has been brought to the emergency department by EMS from home. Patient was called earlier today by his leasing manager stating that his AICD had fired a handful of times today. Patient states that today and yesterday was having episodes of tightness in his chest. He did not consider that perhaps his AICD was firing. At the bedside refill is normal. Denies any symptoms at the bedside currently. I did speak with patient's urologist who requested the patient be started on amiodarone and admitted to stepdown unit. The ROS documented in this emergency department record has been reviewed and confirmed by me. Those systems with pertinent positive or negative responses have been documented in the HPI. All other systems are other negative and/or noncontributory. PHYSICAL EXAM: General Impression: Alert and oriented x3, not in acute distress HEENT: Normocephalic atraumatic, extra-ocular movements intact, pupils equal and reactive to light bilaterally, mucous membranes moist. Cardiovascular: Heart regular rate and rhythm Chest: Able to complete full sentences, no retractions, no tachypnea Abdomen: abdomen soft, non-tender, non-distended, no organomegaly Musculoskeletal: Pulses present and equal in all extremities, no peripheral edema Motor: no focal deficits noted Neurological: CN II-XII grossly intact, no focal motor or sensory deficits noted Skin: Intact with no visualized rashes Psych: Normal affect and mood ED course: 71-year-old well-appearing male presents to emergency department after he was called by his leasing manager for his AICD being activated multiple t imes. Chest x-ray shows mild cardiomegaly. There does appear to be some evidence of pulmonary vascular congestion. Patient denies any shortness of breath at the bedside is not showing any signs of dyspnea. Laboratory evaluation obtained. CBC unremarkable. Metabolic panel shows findings within acceptable limits. Troponin is 0.018. Patient has history of intermittent elevations of troponin. Patient will be admitted to stepdown unit under the care of Dr. Patel with consultation to cardiology. Cardiology is aware patient. Interrogation of AICD process. Patient monitored in the emergency department. Reevaluated at 3 PM found a similar condition. EKG interpretation: Ventricular rate 73, sinus rhythm,. O2 100, QS 111, QTC 474. No [place] prolongation, no QTC prolongation, no ST or T-wave changes noted. EKG compared to 10/14/2021 showing no changes. Overall, this EKG is unremarkable - Related Data Home Medications Medication Instructions Recorded Confirmed Mirtazapine 45 mg PO HS 04/01/14 10/16/21 Omeprazole 40 mg PO AC-BRKFST 04/01/14 10/16/21 QUEtiapine [SEROquel] 200 mg PO BID 04/01/14 10/16/21 Spironolactone [Aldactone] 25 mg PO DAILY 04/01/14 10/16/21 Budesonide/Formoterol Fumarate 2 puff INHALATION RT-BID 07/20/14 10/16/21 [Symbicort 160-4.5 Mcg Inhaler] Citalopram Hydrobromide [CeleXA] 10 mg PO DAILY 07/20/14 10/16/21 Levocetirizine Dihydrochloride 5 mg PO HS 07/20/14 10/16/21 Montelukast [Singulair] 10 mg PO HS 07/20/14 10/16/21 Apixaban [Eliquis] 5 mg PO BID 06/02/20 10/16/21 Atorvastatin [Lipitor] 20 mg PO DAILY 06/02/20 10/16/21 Nitroglycerin Sl Tabs [Nitrostat] 0.4 mg SL Q5M PRN 06/06/20 10/16/21 Albuterol Inhaler [Ventolin Hfa 2 puff INHALATION RT-QID PRN 05/29/21 10/16/21 Inhaler] carvediloL [Coreg] 12.5 mg PO BID-W/MEALS 05/29/21 10/16/21 Fluticasone Nasal [place] [Flonase 2 spr EA NOSTRIL DAILY PRN 06/16/21 10/16/21 Nasal [place]] Furosemide [Lasix] 20 mg PO DAILY@1400 10/16/21 10/16/21 Furosemide [Lasix] 40 mg PO DAILY 10/16/21 10/16/21 Oxybutynin Chloride [Ditropan] 5 mg PO DAILY 10/16/21 10/16/21 Previous Rx's Medication Instructions Recorded Doxepin [SINEquan] 25 mg PO HS cap 06/06/21 Losartan [Cozaar] 50 mg PO DAILY #30 tab 06/06/21 Tamsulosin [Flomax] 0.4 mg PO PC-BRKFST #30 cap 06/06/21 cefUROXime axetiL [Ceftin] 500 mg PO BID 7 Days #14 tab 10/13/21 Potassium Chloride [K-Tab ER] 20 meq PO DAILY 5 Days #5 tab 10/14/21 Allergies Allergy/AdvReac Type Severity Reaction Status Date / Time Barbiturates Allergy Anaphylaxis Verified 10/16/21 13:51 levofloxacin [From Levaquin] Allergy Dyspnea & Verified 10/16/21 13:51 Leg Swelling and Pain & Headache Review of Systems ROS Statement: Those systems with pertinent positive or pertinent negative responses have been documented in the HPI. ROS Other: All systems not noted in ROS Statement are negative. 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 Stovall, gout bilateral feet, occasional numbness L leg/L great toe, hx of PHIL with CPAP but no longer an issue since wt. 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 History of Any Multi-Drug Resistant Organisms: None Reported Past Surgical History: AICD, Cholecystectomy, Heart Catheterization, Heart Catheterization With Stent, Hernia Repair, Pacemaker, Tonsillectomy Additional Past Surgical History / Comment(s): 07/24/14 EGD/colonoscopy with po lypectomy/bx, 2005 AICD/2014 AICD changed to medtronic, 2002 Cardiac stent in [place], 2007 cardiac cath [facility], upper teeth extracted for denture, L ear has tube, R ear plugged, cyst removed L eyelid, bilateral cataract removal, L ganglion cyst removal, L/R inguinal hernia repairs with mesh, penile implant. Past Anesthesia/Blood Transfusion Reactions: No Reported Reaction Date of Last Stent Placement:: 2002 Type of Cardiac Device: AICD Device Placement Date:: 2014 Past Psychological History: Anxiety, Depression Smoking Status: Former smoker Past Alcohol Use History: None Reported Past Drug Use History: None Reported - Past Family History Father Family Medical History: Coronary Artery Disease (CAD), Pneumonia Additional Family Medical History / Comment(s): Father of pneumonia at the age of 82 yrs. Mother Family Medical History: Liver Disease, Renal Disease Additional Family Medical History / Comment(s): father passed after a bout with pneumonia Course Vital Signs 10/16/21 13:47 Temperature 97.6 F Pulse Rate 68 Respiratory 18 Rate Blood Pressure 137/79 O2 Sat by Pulse 96 Oximetry Medical Decision Making - Lab Data Result diagrams: 10/16/21 13:52 10/16/21 13:52 Lab Results 10/16/21 10/16/21 10/16/21 Range/Units 13:52 13:52 13:52 WBC 6.6 (3.8-10.6) k/uL RBC 4.47 (4.30-5.90) m/uL Hgb 12.2 L (13.0-17.5) gm/dL Hct 39.5 (39.0-53.0) % MCV 88.3 (80.0-100.0) fL MCH 27.2 (25.0-35.0) pg MCHC 30.8 L (31.0-37.0) g/dL RDW 15.0 (11.5-15.5) % Plt Count 313 (150-450) k/uL MPV 8.4 Neutrophils % 49 % Lymphocytes % 38 % Monocytes % 8 % Eosinophils % 4 % Basophils % 1 % Neutrophils # 3.2 (1.3-7.7) k/uL Lymphocytes # 2.5 (1.0-4.8) k/uL Monocytes # 0.5 (0-1.0) k/uL Eosinophils # 0.3 (0-0.7) k/uL Basophils # 0.0 (0-0.2) k/uL Sodium 134 L (137-145) mmol/L Potassium 3.4 L (3.5-5.1) mmol/L Chloride 101 (98-107) mmol/L Carbon Dioxide 27 (22-30) mmol/L Anion Gap 6 mmol/L BUN 13 (9-20) mg/dL Creatinine 0.90 (0.66-1.25) mg/dL Est GFR (CKD-EPI)AfAm >90 (>60 ml/min/1.73 sqM) Est GFR (CKD-EPI)NonAf 86 (>60 ml/min/1.73 sqM) Glucose 97 (74-99) mg/dL Calcium 8.8 (8.4-10.2) mg/dL Magnesium 1.5 L (1.6-2.3) mg/dL Total Bilirubin 0.3 (0.2-1.3) mg/dL AST 22 (17-59) U/L ALT 15 (4-49) U/L Alkaline Phosphatase 99 (38-126) U/L Troponin I 0.018 (0.000-0.034) ng/mL Total Protein 6.4 (6.3-8.2) g/dL Albumin 3.5 (3.5-5.0) g/dL Disposition Clinical Impression: Arrhythmia Disposition: ADMITTED IP TO THIS HOSP Condition: Serious Referrals: Roxanna Patel MD [Primary Care Provider] - 1-2 days Decision Time: 14:55
[2021-10-16] MEDS ORDERED: DEXTROSE 5% IN WATER 100 ML with AMIODARONE 150 MG IV ONE (14:00)
[2021-10-16] MEDS ORDERED: AMIODARONE 360 MG in DEXTROSE 5% IN WATER 200 ML IV ONE ×2 (14:10)
[2021-10-16 14:15] LABS: Basophils % (A) 1 %; Eosinophils # (A) 0.3 k/uL (0-0.7); Eosinophils % (A) 4 %; HCT 39.5 % (39.0-53.0); HGB 12.2 gm/dL (13.0-17.5); Lymphocytes # (A) 2.5 k/uL (1.0-4.8); Lymphocytes % (A) 38 %; MCH 27.2 pg (25.0-35.0); MCHC 30.8 g/dL (31.0-37.0); MCV 88.3 fL (80.0-100.0); Mean Platelet Volume 8.4; Monocytes # (A) 0.5 k/uL (0-1.0); Monocytes % (A) 8 %; Neutrophils # (A) 3.2 k/uL (1.3-7.7); Neutrophils % (A) 49 %; Platelet Count 313 k/uL (150-450); RBC 4.47 m/uL (4.30-5.90); WBC 6.6 k/uL (3.8-10.6)
[2021-10-16 14:35] LABS: ALT 15 U/L (4-49); AST 22 U/L (17-59); African American GFR (CKD) >90 (>60 ml/min/1.73 sqM); Albumin 3.5 g/dL (3.5-5.0); Alkaline Phosphatase 99 U/L (38-126); Anion Gap 6 mmol/L; Blood Urea Nitrogen 13 mg/dL (9-20); Calcium 8.8 mg/dL (8.4-10.2); Carbon Dioxide 27 mmol/L (22-30); Chloride 101 mmol/L (98-107); Glucose 97 mg/dL (74-99); Magnesium 1.5 mg/dL (1.6-2.3); Non-African American GFR(CKD) 86 (>60 ml/min/1.73 sqM); Potassium 3.4 mmol/L (3.5-5.1); Sodium 134 mmol/L (137-145); Total Bilirubin 0.3 mg/dL (0.2-1.3); Total Protein 6.4 g/dL (6.3-8.2)
--- NOTE | 2021-10-16 14:43 | XR ---
EXAMINATION TYPE: XR chest 1V portable DATE OF EXAM: 10/16/2021 Comparison: 10/08/2021 Clinical History: 71-year-old male chest tightness Findings: Left anterior chest wall ICD generator with right atrial and right ventricular leads. Heart remains e nlarged. Interstitial prominence. Patchy bibasilar opacities. No sizable effusion on the frontal view . Impression: 1. Mild cardiomegaly with interstitial prominence. Correlate to exclude mild pulmonary vascular conge stion. 2. Patchy bibasilar areas of atelectasis versus infiltrates or mild patchy pulmonary edema. Overall s imilar appearance similar to 10/08/2001.
[2021-10-16] MEDS ORDERED: MAGNESIUM OXIDE 400 MG TAB PO STA (14:50)
[2021-10-16] MEDS ORDERED: POTASSIUM CHLORIDE ER 20 MEQ TAB.ER PO STA (14:50)
[2021-10-16] MEDS ORDERED: NALOXONE 0.4 MG/ML 1 ML VIAL IV PRN (14:56)
[2021-10-16] MEDS: SODIUM CHLORIDE 0.9% 1,000 ML IV SCH (15:55)
[2021-10-16 19:11] LABS: African American GFR (CKD) >90 (>60 ml/min/1.73 sqM); Anion Gap 5 mmol/L; Blood Urea Nitrogen 13 mg/dL (9-20); Carbon Dioxide 31 mmol/L (22-30); Chloride 99 mmol/L (98-107); Glucose 101 mg/dL (74-99); Non-African American GFR(CKD) 86 (>60 ml/min/1.73 sqM); Sodium 135 mmol/L (137-145)
[2021-10-16] MEDS ORDERED: FLUTICASONE 50MCG/SPRAY NASAL 16GM EA NOSTRIL PRN (19:21)
[2021-10-16] MEDS ORDERED: ALBUTEROL HFA INHALER INHALATION PRN (19:21)
[2021-10-16] MEDS ORDERED: NITROGLYCERIN SL TABS 0.4 MG TAB SUBLINGUAL PRN (19:21)
[2021-10-16] MEDS ORDERED: IOPAMIDOL CONTRAST (ORAL USE) VIAL PO PRN (19:57)
--- NOTE | 2021-10-16 19:57 | P.HPIM ---
History of Present Illness H&P Date: 10/16/21 Rayray Stewart, is a 71-year-old male well-known to my practice who presented to [facility] emergency room after he received a call from [facility] advising him to go to emergency room due to firing of his AICD twice. He was evaluated in the emergency room vital examination on presentation revealed a temperature of 97.6 pulse 68 respiration 18 blood pressure 137/79 pulse ox 96% on room air Laboratory data revealed a white blood count of 6.6 hemoglobin 12.2 platelet co unt 313 sodium 134 potassium 3.4 chloride 101 CO2 27 BUN 13 creatinine 0.9 Testing in the emergency room revealed chest x-ray done in the emergency room revealed mild cardiomegaly with interstitial prominence and patchy by basilar area of atelectasis versus infiltrates, EKG done in the emergency room revealed sinus rhythm with frequent ventricular premature complexes left axis deviation and moderate intraventricular conduction delay prolonged QT interval and nonspecific T-wave abnormality. Patient was admitted to medical floor for further evaluation and treatment, cardiology consultation was requested. Patient was in the emergency room 2 days prior to this presentation on 10/14/2021 at that time he presented with a complaint of urinary retention, and hypokalemia he had the Marquis catheter reinserted and he was discharged home to follow-up with urology as outpatient. Patient was also seen in the emergency room 1 day prior to that on 10/13/2021 at that time he was requesting to have his Marquis catheter removed due to pain he had evidence of urinary tract infection and was started on oral Ceftin and discharged home, his Marquis catheter was removed and he was instructed to return in 24 hours if he was unable to urinate which he did. Patient was also seen in the emergency room on 10/08/2021 at that time he presented with abdominal pain and had evidence of urinary retention and had a Marquis catheter placed. 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 Stovall, gout bilateral feet, occasional numbness L leg/L great toe, hx of PHIL with CPAP but no longer an issue since wt. 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 History of Any Multi-Drug Resistant Organisms: None Reported Past Surgical History: AICD, Cholecystectomy, Heart Catheterization, Heart Catheterization With Stent, Hernia Repair, Pacemaker, Tonsillectomy Additional Past Surgical History / Comment(s): 07/24/14 EGD/colonoscopy with polypectomy/bx, 2005 AICD/2014 AICD changed to medtronic, 2002 Cardiac stent in [place], 2007 cardiac cath [facility], upper teeth extracted for denture, L ear has tube, R ear plugged, cyst removed L eyelid, bilateral cataract removal, L ganglion cyst removal, L/R inguinal hernia repairs with mesh, penile implant. Past Anesthesia/Blood Transfusion Reactions: No Reported Reaction Date of Last Stent Placement:: 2002 Type of Cardiac Device: AICD Device Placement Date:: 2014 Past Psychological History: Anxiety, Depression Smoking Status: Former smoker Past Alcohol Use History: None Reported Past Drug Use History: None Reported - Past Family History Father Family Medical History: Coronary Artery Disease (CAD), Pneumonia Additional Family Medical History / Comment(s): Father of pneumonia at the age of 82 yrs. Mother Family Medical History: Liver Disease, Renal Disease Additional Family Medical History / Comment(s): father passed after a bout with pneumonia Medications and Allergies Home Medications Medication Instructions Recorded Confirmed Type Mirtazapine 45 mg PO HS 04/01/14 10/16/21 History Omeprazole 40 mg PO AC-BRKFST 04/01/14 10/16/21 History QUEtiapine [SEROquel] 200 mg PO BID 04/01/14 10/16/21 History Spironolactone [Aldactone] 25 mg PO DAILY 04/01/14 10/16/21 History Budesonide/Formoterol Fumarate 2 puff INHALATION RT-BID 07/20/14 10/16/21 History [Symbicort 160-4.5 Mcg Inhaler] Citalopram Hydrobromide [CeleXA] 10 mg PO DAILY 07/20/14 10/16/21 History Levocetirizine Dihydrochloride 5 mg PO HS 07/20/14 10/16/21 History Montelukast [Singulair] 10 mg PO HS 07/20/14 10/16/21 History Apixaban [Eliquis] 5 mg PO BID 06/02/20 10/16/21 History Atorvastatin [Lipitor] 20 mg PO DAILY 06/02/20 10/16/21 History Nitroglycerin Sl Tabs [Nitrostat] 0.4 mg SL Q5M PRN 06/06/20 10/16/21 History Albuterol Inhaler [Ventolin Hfa 2 puff INHALATION RT-QID PRN 05/29/21 10/16/21 History Inhaler] carvediloL [Coreg] 12.5 mg PO BID-W/MEALS 05/29/21 10/16/21 History Doxepin [SINEquan] 25 mg PO HS cap 06/06/21 10/16/21 Rx Losartan [Cozaar] 50 mg PO DAILY #30 tab 06/06/21 10/16/21 Rx Tamsulosin [Flomax] 0.4 mg PO PC-BRKFST #30 cap 06/06/21 10/16/21 Rx Fluticasone Nasal [place] [Flonase 2 spr EA NOSTRIL DAILY PRN 06/16/21 10/16/21 History Nasal [place]] cefUROXime axetiL [Ceftin] 500 mg PO BID 7 Days #14 tab 10/13/21 10/16/21 Rx Potassium Chloride [K-Tab ER] 20 meq PO DAILY 5 Days #5 tab 10/14/21 10/16/21 Rx Furosemide [Lasix] 20 mg PO DAILY@1400 10/16/21 10/16/21 History Furosemide [Lasix] 40 mg PO DAILY 10/16/21 10/16/21 History Oxybutynin Chloride [Ditropan] 5 mg PO DAILY 10/16/21 10/16/21 History Allergies Allergy/AdvReac Type Severity Reaction Status Date / Time Barbiturates Allergy Anaphylaxis Verified 10/16/21 13:51 levofloxacin [From Levaquin] Allergy Dyspnea & Verified 10/16/21 13:51 Leg Swelling and Pain & Headache Physical Exam Vitals: Vital Signs Temp Pulse Resp BP Pulse Ox 10/16/21 15:54 68 18 127/88 98 10/16/21 13:47 97.6 F 68 18 137/79 96 Intake and Output 10/16/21 10/16/21 10/16/21 06:59 14:59 22:59 Other: Weight 105.233 kg In general patient is alert and oriented x 3 in no distress HEENT head normocephalic and atraumatic Neck is supple no JVD no goiter no lymphadenopathy no carotid bruit Chest examination is clear to auscultation no crackles no wheezing Cardiac exam reveals regular heart sounds S1 and S2 no gallops no murmurs Abdomen is soft nontender no organomegaly with normal bowel sounds, Marquis catheter in place Extremity exam reveals no edema no cyanosis or clubbing Neurological examination reveals no gross focal deficits Results CBC & Chem 7: 10/16/21 13:52 10/16/21 18:27 Labs: Abnormal Lab Results - Last 24 Hours (Table) 10/16/21 10/16/21 Range/Units 13:52 13:52 Hgb 12.2 L (13.0-17.5) gm/dL MCHC 30.8 L (31.0-37.0) g/dL Sodium 134 L (137-145) mmol/L Potassium 3.4 L (3.5-5.1) mmol/L Magnesium 1.5 L (1.6-2.3) mg/dL Assessment and Plan Plan: Two Episodes of AICD firing at at home patient was instructed by cardiology to come to emergency room. Evidence of hypokalemia and hypomagnesemia corrected in the emergency room Evidence of urinary tract infection maintained on Ceftin, will hold Ceftin Will obtain urine culture and use IV Rocephin while in hospital Underlying history of atrial fibrillation maintained on eliquis Underlying history of hypertension Underlying history of COPD Underlying history of diverticulosis with episodes of acute diverticulitis in May 2021 Underlying history of congestive heart failure, with cardiomyopathy ejection fraction on echocardiogram in May 2020 was 30-35% Urinary retention patient has Marquis catheter in he is maintained on Flomax, will consult urology for follow-up Abdominal pain Will obtain computed tomography scan of the abdomen and pelvis, patient has a history of diverticulitis At this time patient is admitted to telemetry floor Home medications reviewed and reordered He was started on IV antibiotic Rocephin He was started on IV amiodarone in the emergency room Cardiology consultation and urology consultation requested Will follow closely
[2021-10-16] MEDS ORDERED: HYDROmorphone 0.5 MG/0.5 ML SYRINGE IVP PRN (19:58)
[2021-10-16] MEDS: MIRTAZAPINE 45 MG TABLET PO SCH (20:35)
[2021-10-16] MEDS: AMIODARONE 450 MG in DEXTROSE 5% IN WATER 250 ML IV SCH ×2 (20:35)
[2021-10-16] MEDS: MONTELUKAST 10 MG TAB PO SCH (20:35)
[2021-10-16] MEDS: DOXEPIN 25 MG CAP PO SCH (20:35)
[2021-10-16] MEDS: QUEtiapine 200 MG TAB PO SCH (20:35)
[2021-10-16] MEDS: APIXABAN 5 MG TAB PO SCH (20:35)
[2021-10-16] MEDS: carvediloL 12.5 MG TAB PO SCH (20:38)
[2021-10-16] MEDS: LORATADINE 10 MG TAB PO SCH (20:38)
[2021-10-16] MEDS: SYMBICORT 160-4.5 MCG INHALER INHALATION SCH (21:23)
[2021-10-17] MEDS: carvediloL 12.5 MG TAB PO SCH ×2 (06:06→17:49)
[2021-10-17] MEDS: PANTOPRAZOLE 40 MG TABLET PO SCH (06:06)
[2021-10-17] MEDS ORDERED: HEPARIN SODIUM,PORCINE 10,000 UNIT in SODIUM CHLORIDE 0.9% 1,000 ML IRRIGATION PRN (07:00)
[2021-10-17] MEDS ORDERED: HEPARIN SODIUM,PORCINE 2,500 UNIT in SODIUM CHLORIDE 0.9% 250 ML IRRIGATION PRN (07:00)
[2021-10-17 07:47] LABS: Basophils # (A) 0.1 k/uL (0-0.2); Basophils % (A) 1 %; Eosinophils # (A) 0.3 k/uL (0-0.7); Eosinophils % (A) 5 %; HCT 40.2 % (39.0-53.0); HGB 12.6 gm/dL (13.0-17.5); Lymphocytes # (A) 2.7 k/uL (1.0-4.8); Lymphocytes % (A) 43 %; MCH 27.7 pg (25.0-35.0); MCHC 31.3 g/dL (31.0-37.0); MCV 88.2 fL (80.0-100.0); Mean Platelet Volume 8.9; Monocytes # (A) 0.5 k/uL (0-1.0); Monocytes % (A) 8 %; Neutrophils # (A) 2.6 k/uL (1.3-7.7); Neutrophils % (A) 41 %; Platelet Count 321 k/uL (150-450); RBC 4.55 m/uL (4.30-5.90); WBC 6.2 k/uL (3.8-10.6)
[2021-10-17 08:00] LABS: ALT 15 U/L (4-49); AST 20 U/L (17-59); African American GFR (CKD) >90 (>60 ml/min/1.73 sqM); Albumin 3.3 g/dL (3.5-5.0); Alkaline Phosphatase 85 U/L (38-126); Anion Gap 4 mmol/L; Blood Urea Nitrogen 12 mg/dL (9-20); Calcium 8.6 mg/dL (8.4-10.2); Carbon Dioxide 27 mmol/L (22-30); Chloride 105 mmol/L (98-107); Glucose 101 mg/dL (74-99); Non-African American GFR(CKD) 88 (>60 ml/min/1.73 sqM); Sodium 136 mmol/L (137-145); Total Bilirubin 0.3 mg/dL (0.2-1.3); Total Protein 6.2 g/dL (6.3-8.2)
[2021-10-17] MEDS ORDERED: ALPRAZolam 0.25 MG TAB PO PRN (08:12)
[2021-10-17] MEDS ORDERED: ALPRAZolam 0.5 MG TAB PO PRN (08:12)
[2021-10-17] MEDS: SYMBICORT 160-4.5 MCG INHALER INHALATION SCH ×2 (08:18→20:43)
[2021-10-17] MEDS: ATORVASTATIN 20 MG TAB PO SCH (08:20)
[2021-10-17] MEDS: CITALOPRAM HYDROBROMIDE 10 MG TAB PO SCH (08:20)
[2021-10-17] MEDS: SPIRONOLACTONE 25 MG TAB PO SCH (08:20)
[2021-10-17] MEDS: POTASSIUM CHLORIDE ER 20 MEQ TAB.ER PO SCH (08:20)
[2021-10-17] MEDS: FUROSEMIDE 40 MG TAB PO SCH (08:20)
[2021-10-17] MEDS: LOSARTAN 50 MG TAB PO SCH (08:20)
[2021-10-17] MEDS: QUEtiapine 200 MG TAB PO SCH ×2 (08:21→20:37)
[2021-10-17] MEDS ORDERED: TAMSULOSIN 0.4 MG CAP.ER.24H PO SCH (08:30)
[2021-10-17] MEDS ORDERED: OXYBUTYNIN CHLORIDE 5 MG TAB PO SCH (09:00)
--- NOTE | 2021-10-17 10:06 | P.CRDCN ---
History of Present Illness History of present illness: This is a pleasant 71-year-old gentleman history of CAD with previous PCI, ischemic cardiomyopathy with AICD in 2013, hypertension, hyperlipidemia, paroxysmal atrial fibrillation on anticoagulation, and GI bleed with colonoscopy showing likely diverticulitis and external hemorrhoids and anticoagulation has been resumed with no recurrence. He was evaluted for possible GI surgery but was not cleared by pulmonary and cardiology secondary to high risk. He follows in the office with Dr. Monsalve. He presented to the emergency department after being called by [facility] office that his device had multiple shocks. He denies any chest pain, shortness of breath, lightheadedness, dizziness, syncope or near syncope, or palpitations. His main complaints are dysuria, difficulty emptying his bladder that he states has become worse. His device was interrogated which revealed 10 VF/VT shocks. Patient was asymptomatic. DIAGNOSTICS * EKG reveals sinus rhythm, heart rate 73, frequent PVCs, nonspecific T-wave abnormalities. * Telemetry tracings indicate sinus rhythm, frequent PVCs, episodes of 34 beat NSVT no sustained V. tach noted * Most recent echocardiogram was completed in the office in April 2021 showed an ejection fraction of 35-40% with global LV hypokinesis, mild AI, mild MR, [id number] TR and moderate pulmonary hypertension. * Chest xray mild cardiomegaly with interstitial prominence. * Laboratory reviewed, troponin negative 2, 0.046, repeat negative, sodium 136, potassium 4.0, BUN 12, serum from 0.8, CBC unremarkable, hemoglobin 12.6 * Patient did undergo cardiac catheterization in June 2017 at [facility] which showed a 40% RCA stenosis which was proximal to patent stented segment and no significant disease noted in the LAD. * Lexiscan in the office 10/03/2021 revealed an EF of 25%, fixed or dilatation of left ventricular cavity anterior apical fixed defect to regional and global hypokinesis. Ejection fraction had decreased. REVIEW OF SYSTEMS At the time of my exam: CONSTITUTIONAL: Denies fever or chills. CARDIOVASCULAR: Denies chest pain, shortness of breath, orthopnea, PND or palpitations. RESPIRATORY: Denies cough. GASTROINTESTINAL: Denies abdominal pain, diarrhea, constipation, nausea or vomiting. MUSCULOSKELETAL: Denies myalgias. NEUROLOGIC: Denies numbness, tingling, headacbe or weakness. ENDOCRINE: Denies fatigue, weight change, polydipsia or polyurina. GENITOURINARY: +burning, +hematuria +urgency HEMATOLOGIC: Denies history of anemia or bleeding. PHYSICAL EXAMINATION Blood pressure 109/68, heart rate 63, afebrile, saturations 90% room air CONSTITUTIONAL: No apparent distress. HEENT: Head is normocephalic. Pupils are equal, round. Sclerae anicteric. Mucous membranes of the mouth are moist. No JVD. CHEST EXAMINATION: Lungs are clear to auscultation. No chest wall tenderness is noted on palpation or with deep breathing. HEART EXAMINATION: Regular rate and rhythm. S1, S2 heard. Systolic murmur at apex. ABDOMEN: Soft, nontender. Positive bowel sounds. EXTREMITIES: 2+ peripheral pulses, no lower extremity edema and no calf tenderness. NEUROLOGIC EXAMINATION: Patient is awake, alert and oriented x3. ASSESSMENT Status post 10 ICD shocks Ventricular tachycardia CAD with previous PCI to the RCA in 2002 Ischemic cardiomyopathy with AICD in 2012 Hypertension Hyperlipidemia Paroxysmal atrial fibrillation on Eliquis History of diverticulitis PLAN Obtain 2D echocardiogram and doppler study to assess cardiac structure and function. Continue IV amiodarone Plan for cardiac catheterization with Dr. Monsalve tomorrow Continue home cardiac medications Hold Eliquis, Start IV heparin drip NPO after midnight I have discussed the risks, benefits and alternative therapies for the above- mentioned procedure and for both sedation/analgesia as well as necessary blood product administration, if indicated, as they pertain to this patient. The patient has indicated understanding and acceptance of the risks and procedures discussed. Questions have been answered appropriately and he is agreeable to move forward with the above-stated procedure. Nurse practitioner note has been reviewed by physician. Signing provider agrees with the documented findings, assessment, and plan of care. 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 Stovall, gout bilateral feet, occasional numbness L leg/L great toe, hx of PHIL with CPAP but no longer an issue since wt. 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 History of Any Multi-Drug Resistant Organisms: None Reported Past Surgical History: AICD, Cholecystectomy, Heart Catheterization, Heart Catheterization With Stent, Hernia Repair, Pacemaker, Tonsillectomy Additional Past Surgical History / Comment(s): 07/24/14 EGD/colonoscopy with polypectomy/bx, 2005 AICD/2014 AICD changed to medtronic, 2002 Cardiac stent in [place], 2007 cardiac cath [facility], upper teeth extracted for denture, L ear has tube, R ear plugged, cyst removed L eyelid, bilateral cataract removal, L ganglion cyst removal, L/R inguinal hernia repairs with mesh, penile implant. Past Anesthesia/Blood Transfusion Reactions: No Reported Reaction Date of Last Stent Placement:: 2002 Type of Cardiac Device: AICD Device Placement Date:: 2014 Past Psychological History: Anxiety, Depression Additional Psychological History / Comment(s): Pt lives alone in an apartment. He uses no assistive device but wonders if he should. He states he has had no falls. He does not own a vehicle so he uses [facility] to get to appointments. He has a medication dispenser thru [facility]. Smoking Status: Former smoker Past Alcohol Use History: None Reported Additional Past Alcohol Use History / Comment(s): Pt started smoking an o ccasional cigar a few years ago. Past Drug Use History: None Reported - Past Family History Father Family Medical History: Coronary Artery Disease (CAD), Pneumonia Additional Family Medical History / Comment(s): Father of pneumonia at the age of 82 yrs. Mother Family Medical History: Liver Disease, Renal Disease Additional Family Medical History / Comment(s): father passed after a bout with pneumonia Medications and Allergies Home Medications Medication Instructions Recorded Confirmed Type Mirtazapine 45 mg PO HS 04/01/14 10/16/21 History Omeprazole 40 mg PO AC-BRKFST 04/01/14 10/16/21 History QUEtiapine [SEROquel] 200 mg PO BID 04/01/14 10/16/21 History Spironolactone [Aldactone] 25 mg PO DAILY 04/01/14 10/16/21 History Budesonide/Formoterol Fumarate 2 puff INHALATION RT-BID 07/20/14 10/16/21 History [Symbicort 160-4.5 Mcg Inhaler] Citalopram Hydrobromide [CeleXA] 10 mg PO DAILY 07/20/14 10/16/21 History Levocetirizine Dihydrochloride 5 mg PO HS 07/20/14 10/16/21 History Montelukast [Singulair] 10 mg PO HS 07/20/14 10/16/21 History Apixaban [Eliquis] 5 mg PO BID 06/02/20 10/16/21 History Atorvastatin [Lipitor] 20 mg PO DAILY 06/02/20 10/16/21 History Nitroglycerin Sl Tabs [Nitrostat] 0.4 mg SL Q5M PRN 06/06/20 10/16/21 History Albuterol Inhaler [Ventolin Hfa 2 puff INHALATION RT-QID PRN 05/29/21 10/16/21 History Inhaler] carvediloL [Coreg] 12.5 mg PO BID-W/MEALS 05/29/21 10/16/21 History Doxepin [SINEquan] 25 mg PO HS cap 06/06/21 10/16/21 Rx Losartan [Cozaar] 50 mg PO DAILY #30 tab 06/06/21 10/16/21 Rx Tamsulosin [Flomax] 0.4 mg PO PC-BRKFST #30 cap 06/06/21 10/16/21 Rx Fluticasone Nasal [place] [Flonase 2 spr EA NOSTRIL DAILY PRN 06/16/21 10/16/21 History Nasal [place]] cefUROXime axetiL [Ceftin] 500 mg PO BID 7 Days #14 tab 10/13/21 10/16/21 Rx Potassium Chloride [K-Tab ER] 20 meq PO DAILY 5 Days #5 tab 10/14/21 10/16/21 Rx Furosemide [Lasix] 20 mg PO DAILY@1400 10/16/21 10/16/21 History Furosemide [Lasix] 40 mg PO DAILY 10/16/21 10/16/21 History Oxybutynin Chloride [Ditropan] 5 mg PO DAILY 10/16/21 10/16/21 History Allergies Allergy/AdvReac Type Severity Reaction Status Date / Time Barbiturates Allergy Anaphylaxis Verified 07/25/22 13:51 levofloxacin [From Levaquin] Allergy Dyspnea & Verified 10/16/21 13:51 Leg Swelling and Pain & Headache Physical Exam Vitals: Vital Signs Temp Pulse Pulse Resp BP BP Pulse Ox 10/17/21 03:43 98.2 F 63 16 109/68 99 10/16/21 23:26 98.2 F 67 18 130/80 96 10/16/21 20:00 98.2 F 78 18 137/78 99 10/16/21 16:36 97.5 F L 72 18 146/86 98 10/16/21 15:54 68 18 127/88 98 10/16/21 13:47 97.6 F 68 18 137/79 96 Intake and Output 10/16/21 10/17/21 10/17/21 22:59 06:59 14:59 Intake Total 480 Output Total 500 850 Balance -20 -850 Intake: Oral 480 Output: Urine 500 850 Uretheral (Marquis) 500 Other: Voiding Method Indwelling Catheter Indwelling Catheter Weight 105.233 kg Results 10/17/21 07:19 10/17/21 07:19 Cardiac Enzymes 10/16/21 10/16/21 10/16/21 Range/Units 13:52 13:52 18:27 AST 22 (17-59) U/L Troponin I 0.018 0.032 (0.000-0.034) ng/mL 10/16/21 Range/Units 23:36 AST (17-59) U/L Troponin I 0.046 H* (0.000-0.034) ng/mL CBC 10/16/21 Range/Units 13:52 WBC 6.6 (3.8-10.6) k/uL RBC 4.47 (4.30-5.90) m/uL Hgb 12.2 L (13.0-17.5) gm/dL Hct 39.5 (39.0-53.0) % Plt Count 313 (150-450) k/uL Comprehensive Metabolic Panel 10/16/21 10/16/21 Range/Units 13:52 18:27 Sodium 134 L 135 L (137-145) mmol/L Potassium 3.4 L 4.0 (3.5-5.1) mmol/L Chloride 101 99 (98-107) mmol/L Carbon Dioxide 27 31 H (22-30) mmol/L BUN 13 13 (9-20) mg/dL Creatinine 0.90 0.89 (0.66-1.25) mg/dL Glucose 97 101 H (74-99) mg/dL Calcium 8.8 9.0 (8.4-10.2) mg/dL AST 22 (17-59) U/L ALT 15 (4-49) U/L Alkaline Phosphatase 99 (38-126) U/L Total Protein 6.4 (6.3-8.2) g/dL Albumin 3.5 (3.5-5.0) g/dL Current Medications Generic Name Dose Route Start Last Admin Trade Name Freq PRN Reason Stop Dose Admin Albuterol Sulfate 2 puff 10/16/21 19:21 Albuterol Hfa Inhaler INHALATION RT-QID PRN Shortness Of Breath Apixaban 5 mg 10/16/21 21:00 10/16/21 20:35 Apixaban 5 Mg Tab PO 5 mg BID NOREEN Administration Protocol Atorvastatin Calcium 20 mg 10/17/21 09:00 Atorvastatin 20 Mg Tab PO DAILY NOREEN Budesonide/Formoterol Fumarate 2 puff 10/16/21 20:00 10/16/21 21:23 Symbicort 160-4.5 Mcg Inhaler INHALATION 2 puff RT-BID NOREEN Administration Carvedilol 12.5 mg 10/16/21 19:30 10/17/21 06:06 Carvedilol 12.5 Mg Tab PO 12.5 mg BID-W/MEALS NOREEN Administration Citalopram Hydrobromide 10 mg 10/17/21 09:00 Citalopram Hydrobromide 10 Mg Tab PO DAILY NOREEN Doxepin HCl 25 mg 10/16/21 21:00 10/16/21 20:35 Doxepin 25 Mg Cap PO 25 mg HS NOREEN Administration Fluticasone Propionate 2 spray 10/16/21 19:21 Fluticasone 50mcg/[place] Nasal 16gm EA NOSTRIL DAILY PRN Allergy Symptoms Furosemide 20 mg 10/17/21 14:00 Furosemide 20 Mg Tab PO DAILY@1400 NOREEN Furosemide 40 mg 10/17/21 09:00 Furosemide 40 Mg Tab PO DAILY NOREEN Hydromorphone HCl 0.5 mg 10/16/21 19:58 Hydromorphone 0.5 Mg/0.5 Ml Syringe IVP Q3HR PRN Pain Amiodarone HCl 450 mg/ 250 mls @ 16.667 mls/hr 10/16/21 20:10 10/16/21 20:35 Dextrose/Water IV 10/17/21 14:09 0.5 mg/min .Q15H NOREEN 16.667 mls/hr Administration Protocol 0.5 MG/MIN Sodium Chloride 1,000 mls @ 20 mls/hr 10/16/21 15:00 10/16/21 15:55 Saline 0.9% IV 20 mls/hr .Q24H NOREEN Administration Iopamidol 30 ml 10/16/21 19:57 Iopamidol Contrast (Oral Use) Vial PO 10/17/21 19:[address] Scan Loratadine 10 mg 10/16/21 21:00 10/16/21 20:38 Loratadine 10 Mg Tab PO 10 mg HS NOREEN Administration Losartan Potassium 50 mg 10/17/21 09:00 Losartan 50 Mg Tab PO DAILY NOREEN Mirtazapine 45 mg 10/16/21 21:00 10/16/21 20:35 Mirtazapine 45 Mg Tablet PO 45 mg HS NOREEN Administration Montelukast Sodium 10 mg 10/16/21 21:00 10/16/21 20:35 Montelukast 10 Mg Tab PO 10 mg HS NOREEN Administration Naloxone HCl 0.2 mg 10/16/21 14:56 Naloxone 0.4 Mg/Ml 1 Ml Vial IV Q2M PRN Opioid Reversal Nitroglycerin 0.4 mg 10/16/21 19:21 Nitroglycerin Sl Tabs 0.4 Mg Tab SUBLINGUAL Q5M PRN Chest Pain Oxybutynin Chloride 5 mg 10/17/21 09:00 Oxybutynin Chloride 5 Mg Tab PO DAILY [facility] Pantoprazole Sodium 40 mg 10/17/21 07:30 10/17/21 06:06 Pantoprazole 40 Mg Tablet PO 40 mg AC-BRKFST NOREEN Administration Potassium Chloride 20 meq 10/17/21 09:00 Potassium Chloride Er 20 Meq Tab.Er PO DAILY [facility] Quetiapine Fumarate 200 mg 10/16/21 21:00 10/16/21 20:35 Quetiapine 200 Mg Tab PO 200 mg BID NOREEN Administration Spironolactone 25 mg 10/17/21 09:00 Spironolactone 25 Mg Tab PO DAILY [facility] Tamsulosin HCl 0.4 mg 10/17/21 08:30 Tamsulosin 0.4 Mg Cap.Er.24h PO PC-BRKFST NOREEN Intake and Output 10/16/21 10/17/21 10/17/21 22:59 06:59 14:59 Intake Total 480 Output Total 500 850 Balance -20 -850 Intake: Oral 480 Output: Urine 500 850 Uretheral (Marquis) 500 Other: Voiding Method Indwelling Catheter Indwelling Catheter Weight 105.233 kg 10/16/21 13:52 10/16/21 18:27
--- NOTE | 2021-10-17 11:55 | CA ---
Transthoracic Echo Report Name: Rayray Stewart Age: 71 Gender: M : 1950 Exam Date: 10/17/2021 11:08 Exam Location: [facility] Ht (in): 74 Wt (lb): 232 Ordering Physician: Regine Pimentel Attending/Referring Phys: Gyn Vikki Gonzales, ALEXANDRA Procedure CPT: Indications: LV function, s/p multiple ICD shocks Cardiac Hx: AICD Technical Quality: Good Contrast 1: Total Dose (mL): Contrast 2: Total Dose (mL): MEASUREMENTS (Male / Female) Normal Values 2D ECHO LV Diastolic Diameter PLAX 4.9 cm 4.2 - 5.9 / 3.9 - 5.3 cm LV Systolic Diameter PLAX 4.9 cm IVS Diastolic Thickness 1.3 cm 0.6 - 1.0 / 0.6 - 0.9 cm LVPW Diastolic Thickness 1.3 cm 0.6 - 1.0 / 0.6 - 0.9 cm LV Relative Wall Thickness 0.5 RV Internal Dim ED PLAX 3.6 cm LA Systolic Diameter LX 4.2 cm 3.0 - 4.0 / 2.7 - 3.8 cm LA Volume 93.6 cm??? 18 - 58 / 22 - 52 cm??? M-MODE Aortic Root Diameter MM 4.1 cm MV E Point Septal Separation 2.4 cm AV Cusp Separation MM 2.4 cm DOPPLER AV Peak Velocity 111.9 cm/s AV Peak Gradient 5.0 mmHg AI Peak Velocity 413.4 cm/s AI Peak Gradient 68.4 mmHg AI Pressure Half Time 867.7 ms MV Area PHT 4.0 cm??? Mitral E Point Velocity 60.3 cm/s Mitral A Point Velocity 37.4 cm/s Mitral E to A Ratio 1.6 MV Deceleration Time 188.0 ms MV E' Velocity 3.5 cm/s Mitral E to MV E' Ratio 17.2 TR Peak Velocity 357.0 cm/s TR Peak Gradient 51.0 mmHg Right Ventricular Systolic Press 56.0 mmHg FINDINGS Left Ventricle Left ventricular ejection fraction is estimated at <15 %. Left ventricular cavity size normal. Moderate concentric left ventricular hypertrophy. Right Ventricle Mild right ventricular dilatation. Moderate to severe pulmonary hypertension. Right Atrium Normal right atrial size. Left Atrium Mildly increased left atrial diameter. Severely increased left atrial volume. Mildly increased left atrial area. No evidence for an atrial septal defect. Mitral Valve Mitral annular calcification. Trace to mild mitral regurgitation. Aortic Valve Trileaflet aortic valve. Mild aortic regurgitation. There is the flow on the level of sinus of valsalva to RV Tricuspid Valve Mild tricuspid regurgitation. Pulmonic Valve Mild pulmonic regurgitation. Pericardium Minimal pericardial effusion by LV Aorta Moderate aortic dilatation at the level of the sinuses of valsalva 41 mm. CONCLUSIONS Left ventricle is at upper limits of normal with the global decrease in contractility and estimated ejection fraction of less than 20%. There is moderate pulmonary hypertension mild mitral and tricuspid noted. There is a dilated duration of the ascending aorta and there is a question of some flow into the RV at the level of sinus of Vansalva Previewed by: Dr. Kaden Monsalve MD (Electronically Signed) Final Date: 17 October 2021 11:55
[2021-10-17] MEDS ORDERED: HEPARIN SODIUM 1,000 UN/ML (10ML VL) IV PRN (12:26)
[2021-10-17] MEDS: HYDROcodone/APAP 5-325MG 1 EACH TAB PO PRN ×2 (12:45→20:36)
[2021-10-17] MEDS: HEPARIN SOD,PORK IN 0.45% NACL 25,000 UNIT in 0.45% NACL 1 250ML.BAG IV SCH (12:46)
[2021-10-17 13:07] LABS: Partial Thromboplastin Time 25.7 sec (22.0-30.0); Prothrombin Time 10.5 sec (9.0-12.0)
[2021-10-17] MEDS: AMIODARONE 450 MG in DEXTROSE 5% IN WATER 250 ML IV SCH ×4 (14:05→21:51)
[2021-10-17] MEDS: FUROSEMIDE 20 MG TAB PO SCH (14:09)
--- NOTE | 2021-10-17 17:15 | P.GSCN ---
History of Present Illness Consult date: 10/17/21 Reason for Consult: Urinary retention Requesting physician: Roxanna Patel History of present illness: The patient is a 71-year-old -[place] male well known to Dr. Scott. He underwent placement of inflatable penile prosthesis in approximately 2007. He has taken tamsulosin and oxybutynin chloride for at least several years. He has recently experienced multiple medical problems, including bloody diarrhea due to diverticulitis, peripheral edema, and colitis. He is now admitted after his AICD fired. He has recently experienced voiding difficulty and underwent placement of a Marquis catheter for urinary retention, but this was subsequently removed due to his discomfort. However, the catheter has been replaced due to recurrent urinary retention. A CT scan in May 2021 showed the bladder to be distended up to the level of the umbilicus. 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 Stovall, gout bilateral feet, occasional numbness L leg/L great toe, hx of PHIL with CPAP but no longer an issue since wt. 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 History of Any Multi-Drug Resistant Organisms: None Reported Past Surgical History: AICD, Cholecystectomy, Heart Catheterization, Heart Catheterization With Stent, Hernia Repair, Pacemaker, Tonsillectomy Additional Past Surgical History / Comment(s): 07/24/14 EGD/colonoscopy with polypectomy/bx, 2005 AICD/2014 AICD changed to medtronic, 2002 Cardiac stent in [place], 2007 cardiac cath [facility], upper teeth extracted for denture, L ear has tube, R ear plugged, cyst removed L eyelid, bilateral cataract removal, L ganglion cyst removal, L/R inguinal hernia repairs with mesh, penile implant. Past Anesthesia/Blood Transfusion Reactions: No Reported Reaction Date of Last Stent Placement:: 2002 Type of Cardiac Device: AICD Device Placement Date:: 2014 Past Psychological History: Anxiety, Depression Additional Psychological History / Comment(s): Pt lives alone in an apartment. He uses no assistive device but wonders if he should. He states he has had no falls. He does not own a vehicle so he uses [facility] to get to appointments. He has a medication dispenser thru [facility]. Smoking Status: Former smoker Past Alcohol Use History: None Reported Additional Past Alcohol Use History / Comment(s): Pt started smoking an occasional cigar a few years ago. Past Drug Use History: None Reported - Past Family History Father Family Medical History: Coronary Artery Disease (CAD), Pneumonia Additional Family Medical History / Comment(s): Father of pneumonia at the age of 82 yrs. Mother Family Medical History: Liver Disease, Renal Disease Additional Family Medical History / Comment(s): father passed after a bout with pneumonia Medications and Allergies Home Medications Medication Instructions Recorded Confirmed Type Mirtazapine 45 mg PO HS 04/01/14 10/16/21 History Omeprazole 40 mg PO AC-BRKFST 04/01/14 10/16/21 History QUEtiapine [SEROquel] 200 mg PO BID 04/01/14 10/16/21 History Spironolactone [Aldactone] 25 mg PO DAILY 04/01/14 10/16/21 History Budesonide/Formoterol Fumarate 2 puff INHALATION RT-BID 07/20/14 10/16/21 History [Symbicort 160-4.5 Mcg Inhaler] Citalopram Hydrobromide [CeleXA] 10 mg PO DAILY 07/20/14 10/16/21 History Levocetirizine Dihydrochloride 5 mg PO HS 07/20/14 10/16/21 History Montelukast [Singulair] 10 mg PO HS 07/20/14 10/16/21 History Apixaban [Eliquis] 5 mg PO BID 06/02/20 10/16/21 History Atorvastatin [Lipitor] 20 mg PO DAILY 06/02/20 10/16/21 History Nitroglycerin Sl Tabs [Nitrostat] 0.4 mg SL Q5M PRN 06/06/20 10/16/21 History Albuterol Inhaler [Ventolin Hfa 2 puff INHALATION RT-QID PRN 05/29/21 10/16/21 History Inhaler] carvediloL [Coreg] 12.5 mg PO BID-W/MEALS 05/29/21 10/16/21 History Doxepin [SINEquan] 25 mg PO HS cap 06/06/21 10/16/21 Rx Losartan [Cozaar] 50 mg PO DAILY #30 tab 06/06/21 10/16/21 Rx Tamsulosin [Flomax] 0.4 mg PO PC-BRKFST #30 cap 06/06/21 10/16/21 Rx Fluticasone Nasal [place] [Flonase 2 spr EA NOSTRIL DAILY PRN 06/16/21 10/16/21 History Nasal [place]] cefUROXime axetiL [Ceftin] 500 mg PO BID 7 Days #14 tab 10/13/21 10/16/21 Rx Potassium Chloride [K-Tab ER] 20 meq PO DAILY 5 Days #5 tab 10/14/21 10/16/21 Rx Furosemide [Lasix] 20 mg PO DAILY@1400 10/16/21 10/16/21 History Furosemide [Lasix] 40 mg PO DAILY 10/16/21 10/16/21 History Oxybutynin Chloride [Ditropan] 5 mg PO DAILY 10/16/21 10/16/21 History Allergies Allergy/AdvReac Type Severity Reaction Status Date / Time Barbiturates Allergy Anaphylaxis Verified 10/16/21 13:51 levofloxacin [From Levaquin] Allergy Dyspnea & Verified 10/16/21 13:51 Leg Swelling and Pain & Headache Surgical - Exam Vital Signs Temp Pulse Resp BP Pulse Ox 97.6 F 68 18 137/79 96 10/16/21 13:47 10/16/21 13:47 10/16/21 13:47 10/16/21 13:47 10/16/21 13:47 - General well developed, well nourished, no distress - Respiratory normal respiratory effort - Abdomen Abdomen: soft, non tender, no guarding, no rigid, no rebound - Genitourinary The penis contains an inflatable penile prosthesis. The distal tip of the right sided cylinder is palpable subcutaneously and appears to be outside the corporal body. The left-sided cylinder appears to be properly positioned. The scrotum and testes are normal. - Rectum Rectum: normal sphincter tone, no masses, other (Prostate mildly enlarged and smooth) - Psychiatric oriented to time, oriented to person, oriented to place, speech is normal, memory intact Results - Labs 10/17/21 07:19 10/17/21 07:19 Abnormal Lab Results - Last 24 Hours (Table) 10/16/21 10/16/21 10/17/21 Range/Units 18:27 23:36 07:19 Hgb 12.6 L (13.0-17.5) gm/dL Sodium 135 L (137-145) mmol/L Carbon Dioxide 31 H (22-30) mmol/L Glucose 101 H (74-99) mg/dL Troponin I 0.046 H* (0.000-0.034) ng/mL Total Protein (6.3-8.2) g/dL Albumin (3.5-5.0) g/dL 10/17/21 Range/Units 07:19 Hgb (13.0-17.5) gm/dL Sodium 136 L (137-145) mmol/L Carbon Dioxide (22-30) mmol/L Glucose 101 H (74-99) mg/dL Troponin I (0.000-0.034) ng/mL Total Protein 6.2 L (6.3-8.2) g/dL Albumin 3.3 L (3.5-5.0) g/dL Microbiology - Last 24 Hours (Table) 10/16/21 21:45 Urine Culture - Preliminary Urine,Catheterized Diabetes panel 10/16/21 10/17/21 Range/Units 18:27 07:19 Sodium 135 L 136 L (137-145) mmol/L Potassium 4.0 4.0 (3.5-5.1) mmol/L Chloride 99 105 (98-107) mmol/L Carbon Dioxide 31 H 27 (22-30) mmol/L BUN 13 12 (9-20) mg/dL Creatinine 0.89 0.85 (0.66-1.25) mg/dL Glucose 101 H 101 H (74-99) mg/dL Calcium 9.0 8.6 (8.4-10.2) mg/dL AST 20 (17-59) U/L ALT 15 (4-49) U/L Alkaline Phosphatase 85 (38-126) U/L Total Protein 6.2 L (6.3-8.2) g/dL Albumin 3.3 L (3.5-5.0) g/dL Thyroid panel 10/16/21 Range/Units 13:52 TSH 1.460 (0.465-4.680) mIU/L Calcium panel 10/16/21 10/17/21 Range/Units 18:27 07:19 Calcium 9.0 8.6 (8.4-10.2) mg/dL Albumin 3.3 L (3.5-5.0) g/dL Pituitary panel 10/16/21 10/16/21 10/17/21 Range/Units 13:52 18:27 07:19 Sodium 135 L 136 L (137-145) mmol/L Potassium 4.0 4.0 (3.5-5.1) mmol/L Chloride 99 105 (98-107) mmol/L Carbon Dioxide 31 H 27 (22-30) mmol/L BUN 13 12 (9-20) mg/dL Creatinine 0.89 0.85 (0.66-1.25) mg/dL Glucose 101 H 101 H (74-99) mg/dL Calcium 9.0 8.6 (8.4-10.2) mg/dL TSH 1.460 (0.465-4.680) mIU/L Adrenal panel 10/16/21 10/17/21 Range/Units 18:27 07:19 Sodium 135 L 136 L (137-145) mmol/L Potassium 4.0 4.0 (3.5-5.1) mmol/L Chloride 99 105 (98-107) mmol/L Carbon Dioxide 31 H 27 (22-30) mmol/L BUN 13 12 (9-20) mg/dL Creatinine 0.89 0.85 (0.66-1.25) mg/dL Glucose 101 H 101 H (74-99) mg/dL Calcium 9.0 8.6 (8.4-10.2) mg/dL Total Bilirubin 0.3 (0.2-1.3) mg/dL AST 20 (17-59) U/L ALT 15 (4-49) U/L Alkaline Phosphatase 85 (38-126) U/L Total Protein 6.2 L (6.3-8.2) g/dL Albumin 3.3 L (3.5-5.0) g/dL - Imaging CT scan - abdomen: report reviewed, image reviewed Assessment and Plan (1) Urinary retention Current Visit: No Status: Acute Code(s): R33.9 - RETENTION OF URINE, UNSPECIFIED SNOMED Code(s): 631405791 Plan: The patient has a Marquis catheter in place for urinary retention. Given the CT scan findings in May, I believe this may be more chronic than acute. I would suggest that the catheter remain in place for several days. I have increased the tamsulosin dosage to 0.8 mg, and oxybutynin chloride was discontinued as this may cause urinary retention. Although the right penile cylinder appears to have eroded outside the corporal body, the skin over this is intact and this should not require treatment unless the cylinder tip erodes through the penile skin, in which case it will need to be removed. Time with Patient: Greater than 30
--- NOTE | 2021-10-17 17:16 | P.PN ---
Subjective Progress Note Date: 10/17/21 Rayray Stewart, is a 71-year-old male well-known to my practice who presented to [facility] emergency room after he received a call [facility] advising him to go to emergency room due to firing of his AICD twice. He was evaluated in the emergency room vital examination on presentation revealed a temperature of 97.6 pulse 68 respiration 18 blood pressure 137/79 pulse ox 96% on room air Laboratory data revealed a white blood count of 6.6 hemoglobin 12.2 platelet count 313 sodium 134 potassium 3.4 chloride 101 CO2 27 BUN 13 creatinine 0.9 Testing in the emergency room revealed chest x-ray done in the emergency room revealed mild cardiomegaly with interstitial prominence and patchy by basilar area of atelectasis versus infiltrates, EKG done in the emergency room revealed sinus rhythm with frequent ventricular premature complexes left axis deviation and moderate intraventricular conduction delay prolonged QT interval and nonspecific T-wave abnormality. Patient was admitted to medical floor for further evaluation and treatment, cardiology consultation was requested. Patient was in the emergency room 2 days prior to this presentation on 10/14/2021 at that time he presented with a complaint of urinary retention, and hypokalemia he had the Marquis catheter reinserted and he was discharged home to follow-up with urology as outpatient. Patient was also seen in the emergency room 1 day prior to that on 10/13/2021 at that time he was requesting to have his Marquis catheter removed due to pain he had evidence of urinary tract infection and was started on oral Ceftin and discharged home, his Marquis catheter was removed and he was instructed to return in 24 hours if he was unable to urinate which he did. Patient was also seen in the emergency room on 10/08/2021 at that time he presented with abdominal pain and had evidence of urinary retention and had a Marquis catheter placed. On 10/17/2021 patient was seen and examined on the telemetry floor he is alert and oriented 3 in no apparent distress he is no fever or chills no headache or dizziness no chest pain no shortness of breath no cough no nausea or vomiting no abdominal pain no diarrhea and no urinary symptoms. Cardiology are planning to proceed with cardiac catheterization, medication reviewed continue with current management, at this time will hold on plans for computed tomography scan of the abdomen and pelvis will continue with IV antibiotics Objective - Vital Signs Vital signs: Vital Signs Temp 98.2 F 10/17/21 03:43 Pulse 63 10/17/21 03:43 Resp 16 10/17/21 03:43 BP 109/68 10/17/21 03:43 Pulse Ox 99 10/17/21 03:43 FiO2 Intake & Output 10/16/21 10/17/21 10/17/21 18:59 06:59 18:59 Intake Total 480 Output Total 1350 Balance -870 Weight 105.233 kg 105.233 kg Intake: Oral 480 Output: Urine 1350 Uretheral (Marquis) 500 Other: Voiding Method Indwelling Catheter Indwelling Catheter - Labs CBC & Chem 7: 10/17/21 07:19 10/17/21 07:19 Labs: Abnormal Lab Results - Last 24 Hours (Table) 10/16/21 10/16/21 10/16/21 Range/Units 13:52 13:52 18:27 Hgb 12.2 L (13.0-17.5) gm/dL MCHC 30.8 L (31.0-37.0) g/dL Sodium 134 L 135 L (137-145) mmol/L Potassium 3.4 L (3.5-5.1) mmol/L Carbon Dioxide 31 H (22-30) mmol/L Glucose 101 H (74-99) mg/dL Magnesium 1.5 L (1.6-2.3) mg/dL Troponin I (0.000-0.034) ng/mL Total Protein (6.3-8.2) g/dL Albumin (3.5-5.0) g/dL 10/16/21 10/17/21 10/17/21 Range/Units 23:36 07:19 07:19 Hgb 12.6 L (13.0-17.5) gm/dL MCHC (31.0-37.0) g/dL Sodium 136 L (137-145) mmol/L Potassium (3.5-5.1) mmol/L Carbon Dioxide (22-30) mmol/L Glucose 101 H (74-99) mg/dL Magnesium (1.6-2.3) mg/dL Troponin I 0.046 H* (0.000-0.034) ng/mL Total Protein 6.2 L (6.3-8.2) g/dL Albumin 3.3 L (3.5-5.0) g/dL Microbiology - Last 24 Hours (Table) 10/16/21 21:45 Urine Culture - Preliminary Urine,Catheterized Assessment and Plan Plan: Two Episodes of AICD firing at at home patient was instructed by cardiology to come to emergency room. Evidence of hypokalemia and hypomagnesemia corrected in the emergency room Evidence of urinary tract infection maintained on Ceftin, will hold Ceftin Will obtain urine culture and use IV Rocephin while in hospital Underlying history of atrial fibrillation maintained on eliquis Underlying history of hypertension Underlying history of COPD Underlying history of diverticulosis with episodes of acute diverticulitis in May 2021 Underlying history of congestive heart failure, with cardiomyopathy ejection fraction on echocardiogram in May 2020 was 30-35% Urinary retention patient has Marquis catheter in he is maintained on Flomax, will consult urology for follow-up Abdominal pain Will obtain computed tomography scan of the abdomen and pelvis, patient has a history of diverticulitis At this time patient is admitted to telemetry floor Home medications reviewed and reordered He was started on IV antibiotic Rocephin He was started on IV amiodarone in the emergency room Cardiology consultation and urology consultation requested Will follow closely
[2021-10-17] MEDS: SODIUM CHLORIDE 0.9% 1,000 ML IV SCH (17:49)
[2021-10-17] MEDS: DOXEPIN 25 MG CAP PO SCH (20:36)
[2021-10-17] MEDS: MIRTAZAPINE 45 MG TABLET PO SCH (20:36)
[2021-10-17] MEDS: TAMSULOSIN 0.4 MG CAP.ER.24H PO SCH (20:37)
[2021-10-17] MEDS: LORATADINE 10 MG TAB PO SCH (20:37)
[2021-10-17] MEDS: MONTELUKAST 10 MG TAB PO SCH (20:37)
[2021-10-18] MEDS ORDERED: SODIUM CHLORIDE 0.9% 1,000 ML in EMPTY BAG 1 BAG IV ONE
[2021-10-18 02:45] LABS: Basophils # (A) 0.1 k/uL (0-0.2); Basophils % (A) 1 %; Eosinophils # (A) 0.4 k/uL (0-0.7); Eosinophils % (A) 5 %; HCT 40.4 % (39.0-53.0); HGB 12.4 gm/dL (13.0-17.5); Hypochromasia Slight; Lymphocytes # (A) 3.3 k/uL (1.0-4.8); Lymphocytes % (A) 45 %; MCH 27.3 pg (25.0-35.0); MCHC 30.7 g/dL (31.0-37.0); Mean Platelet Volume 8.7; Monocytes # (A) 0.5 k/uL (0-1.0); Monocytes % (A) 7 %; Neutrophils % (A) 40 %; Platelet Count 318 k/uL (150-450); RBC 4.54 m/uL (4.30-5.90); WBC 7.3 k/uL (3.8-10.6)
[2021-10-18 02:59] LABS: Partial Thromboplastin Time 95.8 sec (22.0-30.0); Prothrombin Time 10.8 sec (9.0-12.0)
[2021-10-18 03:04] LABS: African American GFR (CKD) >90 (>60 ml/min/1.73 sqM); Anion Gap 3 mmol/L; Blood Urea Nitrogen 13 mg/dL (9-20); Calcium 8.8 mg/dL (8.4-10.2); Carbon Dioxide 26 mmol/L (22-30); Chloride 102 mmol/L (98-107); Glucose 116 mg/dL (74-99); Non-African American GFR(CKD) 82 (>60 ml/min/1.73 sqM); Potassium 4.2 mmol/L (3.5-5.1); Sodium 131 mmol/L (137-145)
[2021-10-18] MEDS: PANTOPRAZOLE 40 MG TABLET PO SCH (05:43)
[2021-10-18] MEDS: carvediloL 12.5 MG TAB PO SCH ×2 (05:43→17:03)
[2021-10-18] MEDS: HYDROcodone/APAP 5-325MG 1 EACH TAB PO PRN ×2 (05:55→17:03)
[2021-10-18] MEDS ORDERED: HEPARIN SODIUM,PORCINE 10,000 UNIT in SODIUM CHLORIDE 0.9% 1,000 ML IRRIGATION PRN (06:00)
[2021-10-18] MEDS ORDERED: HEPARIN SODIUM,PORCINE 2,500 UNIT in SODIUM CHLORIDE 0.9% 250 ML IRRIGATION PRN (06:00)
[2021-10-18] MEDS: POTASSIUM CHLORIDE ER 20 MEQ TAB.ER PO SCH (07:52)
[2021-10-18] MEDS: FUROSEMIDE 40 MG TAB PO SCH (07:52)
[2021-10-18] MEDS: ATORVASTATIN 20 MG TAB PO SCH (07:52)
[2021-10-18] MEDS: TAMSULOSIN 0.4 MG CAP.ER.24H PO SCH ×2 (07:52→20:46)
[2021-10-18] MEDS: SPIRONOLACTONE 25 MG TAB PO SCH (07:52)
[2021-10-18] MEDS: LOSARTAN 50 MG TAB PO SCH (07:52)
[2021-10-18] MEDS: QUEtiapine 200 MG TAB PO SCH ×2 (07:53→22:02)
[2021-10-18] MEDS: CITALOPRAM HYDROBROMIDE 10 MG TAB PO SCH (07:53)
[2021-10-18] MEDS: SYMBICORT 160-4.5 MCG INHALER INHALATION SCH ×2 (09:05→19:39)
[2021-10-18 09:36] LABS: Basophils # (A) 0.1 k/uL (0-0.2); Basophils % (A) 1 %; Eosinophils # (A) 0.4 k/uL (0-0.7); Eosinophils % (A) 6 %; HCT 40.2 % (39.0-53.0); HGB 12.5 gm/dL (13.0-17.5); Lymphocytes # (A) 3.1 k/uL (1.0-4.8); Lymphocytes % (A) 47 %; MCH 27.2 pg (25.0-35.0); MCV 87.9 fL (80.0-100.0); Mean Platelet Volume 8.4; Monocytes # (A) 0.5 k/uL (0-1.0); Monocytes % (A) 7 %; Neutrophils # (A) 2.5 k/uL (1.3-7.7); Neutrophils % (A) 37 %; Platelet Count 307 k/uL (150-450); RBC 4.58 m/uL (4.30-5.90); RDW 14.9 % (11.5-15.5); WBC 6.7 k/uL (3.8-10.6)
[2021-10-18] MEDS ORDERED: VERAPAMIL 2.5 MG/ML 2 ML AMP ONE (10:14)
[2021-10-18] MEDS ORDERED: HEPARIN SODIUM 1,000 UN/ML (10ML VL) ONE (10:36)
[2021-10-18] MEDS ORDERED: ASPIRIN 81 MG ONE (10:38)
[2021-10-18] MEDS ORDERED: ASPIRIN 81 MG PO ONE (10:40)
[2021-10-18] MEDS ORDERED: IV FLUID CONTINUATION 1,000 ML IV ONE (10:41)
[2021-10-18] MEDS ORDERED: MIDAZOLAM 2 MG/2 ML VIAL IV ONE (10:51)
[2021-10-18] MEDS ORDERED: MAGNESIUM SULFATE-D5W PMX 1 GM in DEXTROSE/WATER 1 100ML.BAG IVPB ONE (10:57)
[2021-10-18] MEDS ORDERED: LIDOCAINE 1% INJ 10MG/ML (5 ML VIAL-PF) SQ ONE (10:59)
[2021-10-18] MEDS ORDERED: VERAPAMIL SYRINGE (5 MG/10 ML) INTRAARTER ONE (11:02)
[2021-10-18] MEDS: HEPARIN SODIUM 1,000 UN/ML (10ML VL) IV ONE ×2 (11:04→11:20)
[2021-10-18] MEDS ORDERED: MAGNESIUM SULFATE-D5W PMX 1 GM/100 ML BAG IVPB ONE (11:21)
[2021-10-18] MEDS ORDERED: NITROGLYCERIN 1000MCG/10ML SYRINGE INTRACORON ONE (11:22)
--- NOTE | 2021-10-18 11:23 | CDI ---
Documentation Clarification Form Date: 10/18/2021 10:55:31 AM From: Annie Regan CCS, CCDS Admit Date: 10/16/2021 02:56:00 PM Patient Name: Rayray Stewart Visit Number: [id number] Discharge Date: ATTENTION: The Clinical Documentation Specialists (CDI) and [facility] Coding Staff appreciate your assistance in clarifying documentation. Please respond to the clarification below the line at the bottom and electronically sign. The CDI & [facility] Coding staff will review the response and follow-up if needed. Please note: Queries are made part of the Legal Health Record. If you have any questions, please contact the author of this message via ITS. Dr. Buster Olsen: Heart Failure without further specificity is documented in the 10/16 ED Note, the 10/16 H/P, the 10/17 Cardiology Consult and the 10/17 Urology Consult. Additional information regarding the Type & Acuity of CHF is requested. History/Risk Factors per the 10/16 H/P: Atrial Fibrillation, Asthma, CAD, has AICD, Heart Failure, COPD, CVA with mild memory loss, Iron Deficiency anemia, GERD, Hyperlipidemia, Hypertension, Pneumonia, Sleep Apnea, Anxiety, Depression and Former smoker. Clinical Indicators: Presented to the ED on 10/16 from home with Chest Pain and AICD firing. Admit with Arrhythmia. 10/16 VS: T 97.6, P 68, R 18, BP 137/79, PO 96 RA, BMI: 29.8 10/16 LAB: Hgb 12.2; Na 134, K 3.4, Mag 1.5 10/16 Troponins: 0.018, 0.032, 0.046 10/16 CXR: Mild cardiomegaly with interstitial prominence. Correlate to exclude mild pulmonary vascular congestion. Patchy bibasilar areas of atelectasis vs infiltrates or mild patchy pulmonary edema. Per the H/P: History of CHF with Cardiomyopathy w/EF on ECHO 05/2020 30-35%. Per the 10/17 Cardiology Consult: Obtain 2D Echo & Doppler to assess cardiac structure and function. 10/17 ECHO: Left ventricular EF <15%. Left ventricular cavity size normal. Moderate concentric LVH. Moderate to severe pulmonary hypertension. Trace - mild MR. Mild AR. Mild TR. Mild pulmonic regurgitation.. Minimal pericardial effusion by LV. Treatment 10/16: IV Dextrose/Water w/Amiodarone 103 mls q10M x1, IV Amiodarone 200 mls @ 33.333 mls/hr q6H x1, po Mag Ox 400 mg x1, po K-Dur 40 meq x1, IV Na Chl 1,000 mls @ 20 mls/hr q24H, INH Ventolin QID/prn, Nitro sl 0.4 mg q5m/prn, INH Symbicort BID. 10/17: po Lasix 40 mg Daily, po Lasix 20 mg Daily. Home meds: 20 mg Lasix Daily, 40 mg Lasix Daily, Eliquis 5 mg BID, Nitro 0.4 mg sl prn, Aldactone 25 mg Daily, INH Symbicort BID, INH Ventolin QID. In your professional opinion, can you please clarify the Acuity & Type of CHF if known? [ ] Chronic Systolic Heart Failure [ ] Acute on Chronic Systolic Heart Failure [ ] Other, please specify: [ ] Unable to determine (Template Last Revised: April 2020) MTDD
[2021-10-18] MEDS ORDERED: IOPAMIDOL-370 100ML BTL INJ ONE ×2 (11:27→12:19)
[2021-10-18] MEDS ORDERED: CLOPIDOGREL 75 MG TAB ONE (11:28)
[2021-10-18] MEDS ORDERED: CLOPIDOGREL 75 MG TAB PO ONE (11:29)
--- NOTE | 2021-10-18 13:14 | CC ---
CARDIAC CATHETERIZATION REPORT DATE OF SERVICE: 10/18/2021. PROCEDURE: 1. Left heart catheterization, coronary angiography. 2. IFR measurement of a moderate proximal RCA lesion. 3. PTCA and stenting of proximal RCA and PTCA of mid stent restenotic lesion with a high-pressure noncompliant balloon. 4. PERFORMED BY: Dr. Susie Monsalve. Moderate conscious sedation time 49 minutes. Patient was administered Versed. Oxygen saturation, hemodynamics and EKG were monitored closely. CLINICAL INFORMATION: Mr. Rayray Stewart is a 71-year-old gentleman history of a combination of ischemic and nonischemic cardiomyopathy, GI bleeding, paroxysmal atrial fibrillation, who has an ICD in place. He underwent stenting of RCA in 2002 at [place]. Last cardiac cath in 2018 revealed moderate lesion in the proximal RCA, but no significant lesions. Patient was treated medically. He has an ICD and came into the hospital after multiple shocks. His LV function also has deteriorated with a global decrease in contractility, estimated ejection fraction of about 15-20 percent. He was advised cardiac cath given his presentation with recurrent defibrillator firings. Risks, benefits, options, rationale were explained. Patient understood all details and wished to proceed with the procedure. PROCEDURE NOTE: Under local anesthesia and strict aseptic precautions, a 6-Romansh sheath was placed in the right radial artery. Using JR4 and JL3.5 catheters, I performed coronary angiography and also checked LV pressures. I noted that there was a significant lesion of at least moderate to a 60-70 percent in the proximal RCA. I advised IFR and if abnormal, to proceed with PCI. IFR was performed and PCI was also performed because IFR was 0.82. Following the PCI, the sheath was taken out and TR band applied as per protocol. The saturation the fingers of the right hand of 96%. The patient received 600 mg of Plavix and also heparin and ACT at the end of the procedure was 254 and in between was about 310. CARDIAC CATHETERIZATION FINDINGS: RIGHT CORONARY ARTERY: Very super dominant vessel has a proximal lesion of about 60-65 percent. Then the stented segment is patent. Within the middle of the stent, there is an area of about 40-50 percent narrowing and the caliber of the vessel improves and distally bifurcates in large PDA and PLV, both of which supply a sizable amount of myocardium. The RCA therefore has a proximal 65% lesion before the stent and within the stent another 50% lesion. LEFT MAIN CORONARY ARTERY: Short, patent disease-free vessel that bifurcates into LAD and circumflex. LEFT ANTERIOR DESCENDING CORONARY ARTERY: Good-caliber vessel extends along the anterior wall, gives off septal and diagonal branches, runs all the way to the apex, supplies the inferoapical portion of left ventricle. The LAD has minor irregularities. No significant disease. LEFT POSTERIOR CIRCUMFLEX CORONARY ARTERY: Technically this is a nondominant vessel, gives off a good-sized obtuse marginal. A groove branch comes off, the groove branch has a 95% stenosis but the vessel is about 1 mm in diameter and supplies a limited amount of myocardium. Circumflex marginal does not have any significant disease. Left ventriculogram was not performed. The left ventricular end-diastolic pressure was 21 mmHg without any gradient across aortic valve. INTERVENTIONAL PROCEDURE: Using a standard right Lakhwinder guide catheter and after giving adequate heparin, I performed IFR. I performed appropriate calibration before insertion and also prior to advancing the wire into the right coronary artery. The IFR was 0.82. I decided to proceed with PCI. The same wire was used. I pre-dilated the proximal RCA lesion with a 3.5 NC Trek balloon and then deployed a 12 mm long 4.0 caliber Xience stent proximal to the previously placed stent. Excellent angiographic result was achieved. I then turned my attention to the mid in-stent restenosis of about 50%. Prior to this, I measured the IFR. It was 0.90. I then used a 4.0 balloon and tried to open up the mid lesion within the stented segment. The lesion was very resistant. I went up to 4.5 caliber 8 mm balloon, but the balloon kept slipping either distally or proximally. I switched over to a 4.5 balloon of 12 mm length. With this, I was able to get good seating and I gave multiple inflations. However, there was significant improvement, but there still persisted a waste. Excellent angiographic result without complication was achieved. The patient received heparin and also 600 mg of Plavix. The sheath was taken out and TR band applied as per protocol and he was sent to the room in stable condition. Results were discussed with the patient. There was no family available. I believe the patient will be transitioned from IV to oral amiodarone later on today. He has significant LV dysfunction with a combination of both ischemic and nonischemic cardiomyopathy. Prognosis remains guarded. MMODL / IJN: [id number] /
[2021-10-18] MEDS: HEPARIN SOD,PORK IN 0.45% NACL 25,000 UNIT in 0.45% NACL 1 250ML.BAG IV SCH (17:00)
[2021-10-18] MEDS: AMIODARONE 450 MG in DEXTROSE 5% IN WATER 250 ML IV SCH ×2 (17:00)
[2021-10-18] MEDS: SODIUM CHLORIDE 0.9% 1,000 ML IV SCH (17:00)
[2021-10-18] MEDS: FUROSEMIDE 20 MG TAB PO SCH (17:03)
--- NOTE | 2021-10-18 20:23 | P.PN ---
Subjective Progress Note Date: 10/18/21 Rayray Stewart, is a 71-year-old male well-known to my practice who presented to [facility] emergency room after he received a call from [facility] advising him to go to emergency room due to firing of his AICD twice. He was evaluated in the emergency room vital examination on presentation revealed a temperature of 97.6 pulse 68 respiration 18 blood pressure 137/79 pulse ox 96% on room air Laboratory data revealed a white blood count of 6.6 hemoglobin 12.2 platelet count 313 sodium 134 potassium 3.4 chloride 101 CO2 27 BUN 13 creatinine 0.9 Testing in the emergency room revealed chest x-ray done in the emergency room revealed mild cardiomegaly with interstitial prominence and patchy by basilar area of atelectasis versus infiltrates, EKG done in the emergency room revealed sinus rhythm with frequent ventricular premature complexes left axis deviation and moderate intraventricular conduction delay prolonged QT interval and nonspecific T-wave abnormality. Patient was admitted to medical floor for further evaluation and treatment, cardiology consultation was requested. Patient was in the emergency room 2 days prior to this presentation on 10/14/2021 at that time he presented with a complaint of urinary retention, and hypokalemia he had the Marquis catheter reinserted and he was discharged home to follow-up with urology as outpatient. Patient was also seen in the emergency room 1 day prior to that on 10/13/2021 at that time he was requesting to have his Marquis catheter removed due to pain he had evidence of urinary tract infection and was started on oral Ceftin and discharged home, his Marquis catheter was removed and he was instructed to return in 24 hours if he was unable to urinate which he did. Patient was also seen in the emergency room on 10/08/2021 at that time he presented with abdominal pain and had evidence of urinary retention and had a Marquis catheter placed. On 10/17/2021 patient was seen and examined on the telemetry floor he is alert and oriented 3 in no apparent distress he is no fever or chills no headache or dizziness no chest pain no shortness of breath no cough no nausea or vomiting no abdominal pain no diarrhea and no urinary symptoms. Cardiology are planning to proceed with cardiac catheterization, medication reviewed continue with current management, at this time will hold on plans for computed tomography scan of the abdomen and pelvis will continue with IV antibiotics Objective - Vital Signs Vital signs: Vital Signs Temp 98.1 F 10/18/21 07:50 Pulse 61 10/18/21 07:50 Resp 18 10/18/21 07:50 BP 133/88 10/18/21 07:50 Pulse Ox 99 10/18/21 07:50 FiO2 Intake & Output 10/17/21 10/18/21 10/18/21 18:59 06:59 18:59 Intake Total 850 419.525 Output Total 850 2550 Balance 0 -2130.475 Intake: Intake, IV Titration 250 179.525 Amount Amiodarone 450 mg In 250 Dextrose 5% in Water 250 ml @ 0.5 MG/MIN 16.667 mls/hr IV .Q15H NOREEN Rx#: [id number] Heparin Sod,Pork in 0.45% 179.525 NaCl 25,000 unit In 0.45 % NaCl 1 250ml.bag @ 9.5 UNITS/KG/HR 9.997 mls/hr IV .Q24H NOREEN Rx#: [id number] Oral 600 240 Output: Urine 850 2550 Uretheral (Marquis) 1050 Other: Voiding Method Indwelling Catheter Indwelling Catheter - Exam In general patient is alert and oriented x 3 in no distress HEENT head normocephalic and atraumatic Neck is supple no JVD no goiter no lymphadenopathy no carotid bruit Chest examination is clear to auscultation no crackles no wheezing Cardiac exam reveals regular heart sounds S1 and S2 no gallops no murmurs Abdomen is soft nontender no organomegaly with normal bowel sounds, Marquis catheter in place Extremity exam reveals no edema no cyanosis or clubbing Neurological examination reveals no gross focal deficits - Labs CBC & Chem 7: 10/18/21 08:41 10/18/21 01:47 Labs: Abnormal Lab Results - Last 24 Hours (Table) 10/17/21 10/18/21 10/18/21 Range/Units 18:58 01:47 01:47 Hgb (13.0-17.5) gm/dL MCHC (31.0-37.0) g/dL APTT 31.8 H 95.8 H (22.0-30.0) sec Sodium 131 L (137-145) mmol/L Glucose 116 H (74-99) mg/dL 10/18/21 Range/Units 01:47 Hgb 12.4 L (13.0-17.5) gm/dL MCHC 30.7 L (31.0-37.0) g/dL APTT (22.0-30.0) sec Sodium (137-145) mmol/L Glucose (74-99) mg/dL Assessment and Plan Plan: Two Episodes of AICD firing at at home patient was instructed by cardiology to come to emergency room. Evidence of hypokalemia and hypomagnesemia corrected in the emergency room Evidence of urinary tract infection maintained on Ceftin, will hold Ceftin Will obtain urine culture and use IV Rocephin while in hospital Underlying history of atrial fibrillation maintained on eliquis Underlying history of hypertension Underlying history of COPD Underlying history of diverticulosis with episodes of acute diverticulitis in May 2021 Underlying history of congestive heart failure, with cardiomyopathy ejection fraction on echocardiogram in May 2020 was 30-35% Urinary retention patient has Marquis catheter in he is maintained on Flomax, will consult urology for follow-up Abdominal pain Will obtain computed tomography scan of the abdomen and pelvis, patient has a history of diverticulitis At this time patient is admitted to telemetry floor Home medications reviewed and reordered He was started on IV antibiotic Rocephin He was started on IV amiodarone in the emergency room Cardiology consultation and urology consultation requested Will follow closely
[2021-10-18] MEDS: MONTELUKAST 10 MG TAB PO SCH (20:46)
[2021-10-18] MEDS: LORATADINE 10 MG TAB PO SCH (20:46)
[2021-10-18] MEDS: APIXABAN 5 MG TAB PO SCH (22:01)
[2021-10-18] MEDS: DOXEPIN 25 MG CAP PO SCH (22:02)
[2021-10-18] MEDS: MIRTAZAPINE 45 MG TABLET PO SCH (22:02)
[2021-10-18] MEDS: AMIODARONE 200 MG TAB PO SCH (22:02)
[2021-10-19] MEDS: carvediloL 12.5 MG TAB PO SCH ×2 (06:21→17:52)
[2021-10-19] MEDS: PANTOPRAZOLE 40 MG TABLET PO SCH (06:21)
[2021-10-19 06:46] LABS: Basophils % (A) 1 %; Eosinophils # (A) 0.3 k/uL (0-0.7); Eosinophils % (A) 4 %; HCT 44.8 % (39.0-53.0); Lymphocytes # (A) 2.7 k/uL (1.0-4.8); Lymphocytes % (A) 30 %; MCH 27.1 pg (25.0-35.0); MCHC 31.1 g/dL (31.0-37.0); Mean Platelet Volume 8.5; Monocytes # (A) 0.6 k/uL (0-1.0); Monocytes % (A) 7 %; Neutrophils # (A) 5.2 k/uL (1.3-7.7); Neutrophils % (A) 58 %; Platelet Count 379 k/uL (150-450); RBC 5.15 m/uL (4.30-5.90); RDW 14.9 % (11.5-15.5); WBC 9.1 k/uL (3.8-10.6)
[2021-10-19 06:56] LABS: Calcium 9.8 mg/dL (8.4-10.2); Magnesium 1.9 mg/dL (1.6-2.3); Potassium 4.4 mmol/L (3.5-5.1)
[2021-10-19] MEDS: SYMBICORT 160-4.5 MCG INHALER INHALATION SCH ×2 (08:37→20:23)
[2021-10-19] MEDS: HYDROcodone/APAP 5-325MG 1 EACH TAB PO PRN ×2 (08:39→18:28)
[2021-10-19] MEDS: SPIRONOLACTONE 25 MG TAB PO SCH (08:40)
[2021-10-19] MEDS: CITALOPRAM HYDROBROMIDE 10 MG TAB PO SCH (08:40)
[2021-10-19] MEDS: TAMSULOSIN 0.4 MG CAP.ER.24H PO SCH ×2 (08:40→20:55)
[2021-10-19] MEDS: ASPIRIN 81 MG PO SCH (08:40)
[2021-10-19] MEDS: FUROSEMIDE 40 MG TAB PO SCH (08:41)
[2021-10-19] MEDS: CLOPIDOGREL 75 MG TAB PO SCH (08:41)
[2021-10-19] MEDS: ATORVASTATIN 80 MG TAB PO SCH (08:41)
[2021-10-19] MEDS: POTASSIUM CHLORIDE ER 20 MEQ TAB.ER PO SCH (08:41)
[2021-10-19] MEDS: LOSARTAN 50 MG TAB PO SCH (08:41)
[2021-10-19] MEDS: APIXABAN 5 MG TAB PO SCH ×2 (08:41→20:55)
[2021-10-19] MEDS: QUEtiapine 200 MG TAB PO SCH ×2 (08:44→20:56)
[2021-10-19] MEDS: AMIODARONE 200 MG TAB PO SCH ×2 (10:12→20:55)
--- NOTE | 2021-10-19 11:02 | P.PN ---
Subjective This is a pleasant 71-year-old gentleman history of CAD with previous PCI, ischemic cardiomyopathy with AICD in 2013, hypertension, hyperlipidemia, paroxysmal atrial fibrillation on anticoagulation, and GI bleed with colonoscopy showing likely diverticulitis and external hemorrhoids and anticoagulation has been resumed with no recurrence. He was evaluted for possible GI surgery but was not cleared by pulmonary and cardiology secondary to high risk. He follows in the office with Dr. Monsalve. He presented to the emergency department after being called by [facility] office that his device had multiple shocks. He denies any chest pain, shortness of breath, lightheadedness, dizziness, syncope or near syncope, or palpitations. His main complaints are dysuria, difficulty emptying his bladder that he states has become worse. His device was interrogated which revealed 10 VF/VT shocks. Patient was asymptomatic. 10/18/2021- patient underwent cardiac catheterization with Dr Monsalve which revealed RCA proximal lesion 6065 percent stenosis, stented segment is patent, middle of the stent there is an area of 4050 percent stenosis. Patient underwent stenting of the proximal RCA and stenting of the mid stent restenotic lesion. Echocardiogram revealed an EF less than 20%, moderate pulmonary hypertension and mild mitral and tricuspid regurgitation noted. Minimal pericardial effusion 10/19/2021 Patient seen and examined at bedside, distress. He denies any chest pain or shortness of breath. His main complaint is dysuria and pain around his Marquis site. His vital signs are stable. He is maintaining sinus mechanism on the monitor with heart rate 6070s, no arrhythmia noted. Meds: Antiplatelet therapy with aspirin and Plavix, Eliquis 5 mg twice a day, amiodarone 400 mg twice a day, atorvastatin 80 mg daily, Lasix 40 mg daily, losartan 50 mg daily, spironolactone 25 mg daily Sodium 133, potassium 4.4, BUN 15, syncope and 1.06, magnesium 1.9 PHYSICAL EXAMINATION Vitals reviewed CONSTITUTIONAL: No apparent distress. HEENT: Head is normocephalic. Pupils are equal, round. Sclerae anicteric. Mucous membranes of the mouth are moist. No JVD. CHEST EXAMINATION: Lungs are clear to auscultation. No chest wall tenderness is noted on palpation or with deep breathing. HEART EXAMINATION: Regular rate and rhythm. S1, S2 heard. Systolic murmur at apex. ABDOMEN: Soft, nontender. Positive bowel sounds. EXTREMITIES: 2+ peripheral pulses, no lower extremity edema and no calf tenderness. SKIN: Right radial cath site, clean, dry, dressing intact, tender to palpation, some swelling, no hematoma NEUROLOGIC EXAMINATION: Patient is awake, alert and oriented x3. ASSESSMENT Status post 10 ICD shocks Ventricular tachycardia Status post stenting of the proximal RCA and stenting of the mid stent reste notic lesion on 10/18/2021 CAD with previous PCI to the RCA in 2002 Ischemic cardiomyopathy with AICD in 2012 Chronic heart failure with reduced ejection fraction Hypertension Hyperlipidemia Paroxysmal atrial fibrillation on Eliquis History of diverticulitis PLAN Continue dual antiplatelet therapy with aspirin and plavix, in addition to Eliquis at this time secondary to stent placement Amiodarone 400mg BID and taper on discharge, placed in discharge instructions. Continue home cardiac medications Rest of management per primary On discharge follow up with Dr. Monsalve in 1 week Further recommendations based on clinical course Nurse practitioner note has been reviewed by physician. Signing provider agrees with the documented findings, assessment, and plan of care. Objective - Vital Signs Vital signs: Vital Signs Temp 97.4 F L 10/19/21 10:11 Pulse 64 10/19/21 10:11 Resp 20 10/19/21 10:11 BP 122/76 10/19/21 10:11 Pulse Ox 97 10/19/21 10:11 FiO2 Intake & Output 10/18/21 10/19/21 10/19/21 18:59 06:59 18:59 Intake Total 325 Output Total 1000 4575 Balance -675 -4575 Intake: IV 325 Output: Urine 1000 4575 Other: Voiding Method Indwelling Catheter Indwelling Catheter Indwelling Catheter # Bowel Movements 1 - Labs CBC & Chem 7: 10/19/21 06:19 10/19/21 06:19 Labs: Abnormal Lab Results - Last 24 Hours (Table) 10/19/21 Range/Units 06:19 Sodium 133 L (137-145) mmol/L Microbiology - Last 24 Hours (Table) 10/16/21 21:45 Urine Culture - Final Urine,Catheterized
--- NOTE | 2021-10-19 15:08 | P.PN ---
Subjective Progress Note Date: 10/19/21 Rayray Stewart, is a 71-year-old male well-known to my practice who presented to [facility] emergency room after he received a call from [facility] advising him to go to emergency room due to firing of his AICD twice. He was evaluated in the emergency room vital examination on presentation revealed a temperature of 97.6 pulse 68 respiration 18 blood pressure 137/79 pulse ox 96% on room air Laboratory data revealed a white blood count of 6.6 hemoglobin 12.2 platelet count 313 sodium 134 potassium 3.4 chloride 101 CO2 27 BUN 13 creatinine 0.9 Testing in the emergency room revealed chest x-ray done in the emergency room revealed mild cardiomegaly with interstitial prominence and patchy by basilar area of atelectasis versus infiltrates, EKG done in the emergency room revealed sinus rhythm with frequent ventricular premature complexes left axis deviation and moderate intraventricular conduction delay prolonged QT interval and nonspecific T-wave abnormality. Patient was admitted to medical floor for further evaluation and treatment, cardiology consultation was requested. Patient was in the emergency room 2 days prior to this presentation on 10/14/2021 at that time he presented with a complaint of urinary retention, and hypokalemia he had the Marquis catheter reinserted and he was discharged home to follow-up with urology as outpatient. Patient was also seen in the emergency room 1 day prior to that on 10/13/2021 at that time he was requesting to have his Marquis catheter removed due to pain he had evidence of urinary tract infection and was started on oral Ceftin and discharged home, his Marquis catheter was removed and he was instructed to return in 24 hours if he was unable to urinate which he did. Patient was also seen in the emergency room on 10/08/2021 at that time he presented with abdominal pain and had evidence of urinary retention and had a Marquis catheter placed. On 10/17/2021 patient was seen and examined on the telemetry floor he is alert and oriented 3 in no apparent distress he is no fever or chills no headache or dizziness no chest pain no shortness of breath no cough no nausea or vomiting no abdominal pain no diarrhea and no urinary symptoms. Cardiology are planning to proceed with cardiac catheterization, medication reviewed continue with current management, at this time will hold on plans for computed tomography scan of the abdomen and pelvis will continue with IV antibiotics On 10/18/2021 patient was seen and examined on the telemetry floor he is alert and oriented 3 in no apparent distress there is no fever or chills no headache or dizziness no chest pain no shortness of breath no cough no nausea or vomiting no abdominal pain no diarrhea patient is still complaining of discomfort around his Marquis catheter. Plan per cardiology is to proceed with cardiac catheterization today. On 10/19/2021 patient was seen and examined on the telemetry floor he is alert and oriented in no apparent distress he denies any chest pain or shortness of breath there is no fever or chills no headache or dizziness no cough no nausea or vomiting no abdominal pain no diarrhea and no urinary symptoms. Patient underwent cardiac catheterization yesterday with PTCA and stenting of the proximal RCA and PTCA of mid stent restenosis lesion. At this time patient is resting comfortably, he lives alone at home, will ask physical therapy and occupational therapy to assess if he needs to go to rehab prior to going home. Objective - Vital Signs Vital signs: Vital Signs Temp 97.6 F 10/19/21 12:00 Pulse 65 10/19/21 12:00 Resp 18 10/19/21 12:00 BP 101/63 10/19/21 12:00 Pulse Ox 94 L 10/19/21 12:00 FiO2 Intake & Output 10/18/21 10/19/21 10/19/21 18:59 06:59 18:59 Intake Total 325 Output Total 1000 4575 250 Balance -675 -4575 -250 Intake: IV 325 Output: Urine 1000 4575 250 Other: Voiding Method Indwelling Catheter Indwelling Catheter Indwelling Catheter # Bowel Movements 1 - Exam In general patient is alert and oriented x 3 in no distress HEENT head normocephalic and atraumatic Neck is supple no JVD no goiter no lymphadenopathy no carotid bruit Chest examination is clear to auscultation no crackles no wheezing Cardiac exam reveals regular heart sounds S1 and S2 no gallops no murmurs Abdomen is soft nontender no organomegaly with normal bowel sounds, Marquis catheter in place Extremity exam reveals no edema no cyanosis or clubbing Neurological examination reveals no gross focal deficits - Labs CBC & Chem 7: 10/19/21 06:19 10/19/21 06:19 Labs: Abnormal Lab Results - Last 24 Hours (Table) 10/19/21 Range/Units 06:19 Sodium 133 L (137-145) mmol/L Assessment and Plan Plan: Two Episodes of AICD firing at at home patient was instructed by cardiology to come to emergency room. Evidence of hypokalemia and hypomagnesemia corrected in the emergency room Evidence of urinary tract infection maintained on Ceftin, will hold Ceftin Will obtain urine culture and use IV Rocephin while in hospital Underlying history of atrial fibrillation maintained on eliquis Underlying history of hypertension Underlying history of COPD Underlying history of diverticulosis with episodes of acute diverticulitis in May 2021 Underlying history of congestive heart failure, with cardiomyopathy ejection fraction on echocardiogram in May 2020 was 30-35% Urinary retention patient has Marquis catheter in he is maintained on Flomax, will consult urology for follow-up Abdominal pain Will obtain computed tomography scan of the abdomen and pelvis, patient has a history of diverticulitis At this time patient is admitted to telemetry floor Home medications reviewed and reordered He was started on IV antibiotic Rocephin He was started on IV amiodarone in the emergency room Cardiology consultation and urology consultation requested Will follow closely
[2021-10-19] MEDS: SODIUM CHLORIDE 0.9% 1,000 ML IV SCH (17:22)
[2021-10-19] MEDS: FUROSEMIDE 20 MG TAB PO SCH (17:30)
[2021-10-19] MEDS: MONTELUKAST 10 MG TAB PO SCH (20:55)
[2021-10-19] MEDS: LORATADINE 10 MG TAB PO SCH (20:55)
[2021-10-19] MEDS: DOXEPIN 25 MG CAP PO SCH (20:56)
[2021-10-19] MEDS: MIRTAZAPINE 45 MG TABLET PO SCH (20:56)
[2021-10-20] MEDS: HYDROcodone/APAP 5-325MG 1 EACH TAB PO PRN ×2 (01:30→09:22)
[2021-10-20 05:27] LABS: Basophils % (A) 0 %; Eosinophils # (A) 0.3 k/uL (0-0.7); Eosinophils % (A) 4 %; HCT 42.1 % (39.0-53.0); HGB 13.4 gm/dL (13.0-17.5); Lymphocytes # (A) 3.1 k/uL (1.0-4.8); Lymphocytes % (A) 38 %; MCH 27.6 pg (25.0-35.0); MCHC 31.7 g/dL (31.0-37.0); MCV 86.8 fL (80.0-100.0); Mean Platelet Volume 8.3; Monocytes # (A) 0.6 k/uL (0-1.0); Monocytes % (A) 7 %; Neutrophils # (A) 3.9 k/uL (1.3-7.7); Neutrophils % (A) 49 %; Platelet Count 356 k/uL (150-450); RBC 4.85 m/uL (4.30-5.90); RDW 14.8 % (11.5-15.5)
[2021-10-20 05:43] LABS: Albumin 3.5 g/dL (3.5-5.0); Calcium 9.3 mg/dL (8.4-10.2); Potassium 4.6 mmol/L (3.5-5.1); Total Bilirubin 0.4 mg/dL (0.2-1.3); Total Protein 6.3 g/dL (6.3-8.2)
[2021-10-20] MEDS: PANTOPRAZOLE 40 MG TABLET PO SCH (06:15)
[2021-10-20] MEDS: carvediloL 12.5 MG TAB PO SCH ×2 (06:15→16:57)
--- NOTE | 2021-10-20 08:01 | P.PN ---
Subjective Progress Note Date: 10/20/21 The patient is in the hospital for cardiac issues. He is in urinary retention and acute and chronic. He was seen by replace his Marquis and increase his Flomax twice daily. I did discussion with the patient about catheter removal and voiding trial. He wishes not to do this until an outpatient. I can do this is in the office upon discharge. Objective - Vital Signs Vital signs: Vital Signs Temp 97.6 F 10/20/21 07:12 Pulse 56 L 10/20/21 07:12 Resp 19 10/20/21 07:12 BP 104/68 10/20/21 07:12 Pulse Ox 96 10/20/21 07:12 FiO2 Intake & Output 10/19/21 10/20/21 10/20/21 18:59 06:59 18:59 Output Total 450 500 Balance -450 -500 Output: Urine 450 500 Other: Voiding Method Indwelling Catheter Indwelling Catheter - Labs CBC & Chem 7: 10/20/21 05:01 10/20/21 05:01 Labs: Abnormal Lab Results - Last 24 Hours (Table) 10/20/21 Range/Units 05:01 Sodium 131 L (137-145) mmol/L Creatinine 1.35 H (0.66-1.25) mg/dL
[2021-10-20] MEDS: APIXABAN 5 MG TAB PO SCH ×2 (08:34→20:55)
[2021-10-20] MEDS: ASPIRIN 81 MG PO SCH (08:34)
[2021-10-20] MEDS: LOSARTAN 50 MG TAB PO SCH (08:35)
[2021-10-20] MEDS: ATORVASTATIN 80 MG TAB PO SCH (08:35)
[2021-10-20] MEDS: FUROSEMIDE 40 MG TAB PO SCH (08:35)
[2021-10-20] MEDS: CLOPIDOGREL 75 MG TAB PO SCH (08:35)
[2021-10-20] MEDS: POTASSIUM CHLORIDE ER 20 MEQ TAB.ER PO SCH (08:36)
[2021-10-20] MEDS: TAMSULOSIN 0.4 MG CAP.ER.24H PO SCH ×2 (08:36→20:55)
[2021-10-20] MEDS: SPIRONOLACTONE 25 MG TAB PO SCH (08:36)
[2021-10-20] MEDS: QUEtiapine 200 MG TAB PO SCH ×2 (08:36→20:55)
[2021-10-20] MEDS: CITALOPRAM HYDROBROMIDE 10 MG TAB PO SCH (08:38)
[2021-10-20] MEDS: AMIODARONE 200 MG TAB PO SCH (09:16)
[2021-10-20] MEDS: SYMBICORT 160-4.5 MCG INHALER INHALATION SCH ×2 (09:27→20:18)
--- NOTE | 2021-10-20 10:48 | P.PN ---
Subjective This is a pleasant 71-year-old gentleman history of CAD with previous PCI, ischemic cardiomyopathy with AICD in 2013, hypertension, hyperlipidemia, paroxysmal atrial fibrillation on anticoagulation, and GI bleed with colonoscopy showing likely diverticulitis and external hemorrhoids and anticoagulation has been resumed with no recurrence. He was evaluted for possible GI surgery but was not cleared by pulmonary and cardiology secondary to high risk. He follows in the office with Dr. Monsalve. He presented to the emergency department after being called by cardiology associates office that his device had multiple shocks. He denies any chest pain, shortness of breath, lightheadedness, dizziness, syncope or near syncope, or palpitations. His main complaints are dysuria, difficulty emptying his bladder that he states has become worse. His device was interrogated which revealed 10 VF/VT shocks. Patient was asymptomatic. 10/18/2021- patient underwent cardiac catheterization with Dr Monsalve which revealed RCA proximal lesion 6065 percent stenosis, stented segment is patent, middle of the stent there is an area of 4050 percent stenosis. Patient underwent stenting of the proximal RCA and stenting of the mid stent restenotic lesion. Echocardiogram revealed an EF less than 20%, moderate pulmonary hypertension and mild mitral and tricuspid regurgitation noted. Minimal pericardial effusion 10/20/2021 Patient seen and examined at bedside, distress. He denies any chest pain or shortness of breath. His main complaint is dysuria and pain around his Marquis site. Urology is following. His vital signs are stable. He is maintaining sinus mechanism on the monitor with heart rate 6070s, no arrhythmia noted. Meds: Antiplatelet therapy with aspirin and Plavix, Eliquis 5 mg twice a day, amiodarone 400 mg twice a day, atorvastatin 80 mg daily, Lasix 40 mg daily, losartan 50 mg daily, spironolactone 25 mg daily Sodium 131, potassium 4.6, BUN 19, serum creatinine 1.35 PHYSICAL EXAMINATION Vitals reviewed CONSTITUTIONAL: No apparent distress. HEENT: Head is normocephalic. Neck Supple. No JVD. CHEST EXAMINATION: Lungs are clear to auscultation. No chest wall tenderness is noted on palpation or with deep breathing. HEART EXAMINATION: Regular rate and rhythm. S1, S2 heard. Systolic murmur at apex. ABDOMEN: Soft, nontender. Positive bowel sounds. EXTREMITIES: 2+ peripheral pulses, no lower extremity edema and no calf tenderness. SKIN: Right radial cath site, clean, dry, dressing intact, tender to palpation, some swelling, no hematoma NEUROLOGIC EXAMINATION: Patient is awake, alert and oriented x3. ASSESSMENT Status post 10 ICD shocks Ventricular tachycardia Status post stenting of the proximal RCA and stenting of the mid stent restenotic lesion on 10/18/2021 CAD with previous PCI to the RCA in 2002 Ischemic cardiomyopathy with AICD in 2012 Chronic heart failure with reduced ejection fraction Hypertension Hyperlipidemia Paroxysmal atrial fibrillation on Eliquis History of diverticulitis Dysuria PLAN Continue dual antiplatelet therapy with aspirin and plavix, in addition to Eliquis at this time secondary to stent placement Amiodarone 400mg BID and taper on discharge, placed in discharge instructions. Continue home cardiac medications Rest of management per primary Urology is following patient as well On discharge follow up with Dr. Monsalve in 1 week Patient stable from a cardiology standpoint, we'll follow the patient as needed. Please reconsult if needed. Nurse practitioner note has been reviewed by physician. Signing provider agrees with the documented findings, assessment, and plan of care. Objective - Vital Signs Vital signs: Vital Signs Temp 97.6 F 10/20/21 07:12 Pulse 56 L 10/20/21 07:12 Resp 19 10/20/21 07:12 BP 104/68 10/20/21 07:12 Pulse Ox 96 10/20/21 07:12 FiO2 Intake & Output 10/19/21 10/20/21 10/20/21 18:59 06:59 18:59 Output Total 450 500 Balance -450 -500 Output: Urine 450 500 Other: Voiding Method Indwelling Catheter Indwelling Catheter - Labs CBC & Chem 7: 10/20/21 05:01 10/20/21 05:01 Labs: Abnormal Lab Results - Last 24 Hours (Table) 10/20/21 Range/Units 05:01 Sodium 131 L (137-145) mmol/L Creatinine 1.35 H (0.66-1.25) mg/dL
--- NOTE | 2021-10-20 11:59 | P.PN ---
Subjective This is a pleasant 71 years old male with multiple medical problems presents when his doctor called him his AICD device has sparked to electrical shocks and he was asked to come to emergency room. Patient was asymptomatic. Ventricular tachycardia is suspected and patient was placed on amiodarone with plan for operative taper as an outpatient. Cardiology actually already. The patient and they don't see the patient on as needed basis. Also urologist . the patient about his urinary retention patient was to keep the Marquis catheter now and he needs to follow up with urologist as an outpatient. Creatinine went up today 1.0 up to 1.3 therefore we will check his level tomorrow. He denies any chest pain or dyspnea. No diarrhea or dysuria or urgency. No fever. Patient informed about his medication of liquids, aspirin and Plavix and risks including but not limited to bleeding are explained for him extensively and he verbalized understanding and acceptance. Objective - Vital Signs Vital signs: Vital Signs Temp 97.6 F 10/20/21 11:18 Pulse 58 L 10/20/21 11:18 Resp 21 10/20/21 11:18 BP 107/71 10/20/21 11:18 Pulse Ox 97 10/20/21 08:00 FiO2 Intake & Output 10/19/21 10/20/21 10/20/21 18:59 06:59 18:59 Intake Total 180 Output Total 450 500 Balance -450 -500 180 Intake: Oral 180 Output: Urine 450 500 Other: Voiding Method Indwelling Catheter Indwelling Catheter Indwelling Catheter - Exam GENERAL: The patient is alert and oriented x3, not in any acute distress. Well developed, well nourished. HEENT: Pupils are round and equally reacting to light. EOMI. No scleral icterus. No conjunctival pallor. Normocephalic, atraumatic. No pharyngeal erythema. No thyromegaly. CARDIOVASCULAR: S1 and S2 present. No murmurs, rubs, or gallops. PULMONARY: Chest is clear to auscultation, no wheezing or crackles. ABDOMEN: Soft, nontender, nondistended, normoactive bowel sounds. No palpable organomegaly. MUSCULOSKELETAL: No joint swelling or deformity. EXTREMITIES: No cyanosis, clubbing, or pedal edema. NEUROLOGICAL: Gross neurological examination did not reveal any focal deficits. SKIN: No rashes. no petechiae. - Labs CBC & Chem 7: 10/20/21 05:01 10/20/21 05:01 Labs: Abnormal Lab Results - Last 24 Hours (Table) 10/20/21 Range/Units 05:01 Sodium 131 L (137-145) mmol/L Creatinine 1.35 H (0.66-1.25) mg/dL Assessment and Plan Assessment: Status post AICD and electric shock with suspected ventricular tachycardia, resolved and patient being discharged on amiodarone taper per business intelligence reporting analyst Urinary retention status post Marquis catheter Acute kidney injury Cardiomyopathy with ejection fraction less than 20% History of coronary artery disease status post stent stent placement Paroxysmal atrial fibrillation on liquids Plan: This is a pleasant 71 years old male who presents with firing AICD Cardiology this patient on amiodarone which can be tapered as an outpatient. Patient is cleared by cardiology for discharge Urologist on the case for urinary retention. He will Follow-Up Outpatient. We Will Monitor His Creatinine for Tomorrow, Especially She Is on a Blood Thinne r Labs and medication were reviewed.. Continue same treatment. Continue with symptomatic treatment. Resume home medication. Monitor lytes and vitals. DVT and GI prophylaxis. Further recommendations as per clinical course of the patient DVT prophylaxis: Eliquis GI Prophylaxis: Ppi
[2021-10-20] MEDS: FUROSEMIDE 20 MG TAB PO SCH (13:05)
[2021-10-20 13:56] LABS: Appearance,Urine Clear (Clear); Bilirubin,Urine Negative (Negative); Blood,Urine Large (Negative); Color,Urine Light Yellow; Glucose,Urine (UA) Negative (Negative); Ketones,Urine Negative (Negative); Leukocyte Esterase,Urine Trace (Negative); Nitrite,Urine Negative (Negative); Protein,Urine Trace (Negative); RBC,Urine 45 /hpf (0-5); Specific Gravity,Urine 1.007 (1.001-1.035); Urobilinogen,Urine <2.0 mg/dL (<2.0); WBC,Urine 4 /hpf (0-5)
[2021-10-20] MEDS: SODIUM CHLORIDE 0.9% 1,000 ML IV SCH (14:39)
[2021-10-20] MEDS: LORATADINE 10 MG TAB PO SCH (20:55)
[2021-10-20] MEDS: MONTELUKAST 10 MG TAB PO SCH (20:55)
[2021-10-20] MEDS: MIRTAZAPINE 45 MG TABLET PO SCH (20:56)
[2021-10-20] MEDS: DOXEPIN 25 MG CAP PO SCH (20:56)
[2021-10-21] MEDS: AMIODARONE 200 MG TAB PO SCH ×3 (00:11→22:10)
[2021-10-21] MEDS: HYDROcodone/APAP 5-325MG 1 EACH TAB PO PRN ×2 (00:11→06:26)
[2021-10-21] MEDS: PANTOPRAZOLE 40 MG TABLET PO SCH (06:26)
[2021-10-21] MEDS: carvediloL 12.5 MG TAB PO SCH ×2 (06:26→17:06)
[2021-10-21] MEDS: SYMBICORT 160-4.5 MCG INHALER INHALATION SCH ×2 (08:05→20:24)
[2021-10-21 08:12] LABS: Calcium 9.6 mg/dL (8.4-10.2)
[2021-10-21 08:18] LABS: Potassium 5.5 mmol/L (3.5-5.1)
[2021-10-21] MEDS: POTASSIUM CHLORIDE ER 20 MEQ TAB.ER PO SCH (08:45)
[2021-10-21] MEDS: TAMSULOSIN 0.4 MG CAP.ER.24H PO SCH ×2 (08:53→22:10)
[2021-10-21] MEDS: FUROSEMIDE 40 MG TAB PO SCH (08:53)
[2021-10-21] MEDS: APIXABAN 5 MG TAB PO SCH ×2 (08:53→22:11)
[2021-10-21] MEDS: ATORVASTATIN 80 MG TAB PO SCH (08:54)
[2021-10-21] MEDS: CITALOPRAM HYDROBROMIDE 10 MG TAB PO SCH ×2 (08:54→08:55)
[2021-10-21] MEDS: CLOPIDOGREL 75 MG TAB PO SCH (08:54)
[2021-10-21] MEDS: ASPIRIN 81 MG PO SCH (08:54)
[2021-10-21] MEDS: SPIRONOLACTONE 25 MG TAB PO SCH (08:54)
[2021-10-21] MEDS: LOSARTAN 50 MG TAB PO SCH (08:54)
[2021-10-21] MEDS: QUEtiapine 200 MG TAB PO SCH ×2 (08:55→22:29)
--- NOTE | 2021-10-21 10:52 | P.PN ---
Subjective This is a pleasant 71 years old male with multiple medical problems presents when his doctor called him his AICD device has sparked to electrical shocks and he was asked to come to emergency room. Patient was asymptomatic. Ventricular tachycardia is suspected and patient was placed on amiodarone with plan for operative taper as an outpatient. Cardiology actually already. The patient and they don't see the patient on as needed basis. Also urologist . the patient about his urinary retention patient was to keep the Marquis catheter now and he needs to follow up with urologist as an outpatient. Creatinine went up today 1.0 up to 1.3 therefore we will check his level tomorrow. He denies any chest pain or dyspnea. No diarrhea or dysuria or urgency. No fever. Patient informed about his medication of liquids, aspirin and Plavix and risks including but not limited to bleeding are explained for him extensively and he verbalized understanding and acceptance. 10/21/2021 Patient has no more electric shock from his AICD. Mixer Operator Hot Metal on the case and currently on amiodarone 400 mg with plan to taper down the road in a few days. His ejection fraction was less than 20% however patient with no respiratory difficulty or significant leg edema. He is kept on oral Lasix and Aldactone. He is also on home dose of liquids for his history of paroxysmal atrial fibrillation. Creatinine is elevated but stable today at 1.3. Potassium was high but it was a hemolyzed sample , discussed with bed side nurse to hold his potassium today and check it tomorrow. Patient can be transferred to the general medical floor. Marquis catheter remains in place and follow-up with urologist as an outpatient, he is been seen by Dr. Scott. Objective - Vital Signs Vital signs: Vital Signs Temp 98.6 F 10/21/21 04:00 Pulse 76 10/21/21 04:00 Resp 19 10/21/21 04:00 BP 115/77 10/21/21 06:23 Pulse Ox 96 10/21/21 04:00 FiO2 Intake & Output 10/20/21 10/21/21 10/21/21 18:59 06:59 18:59 Intake Total 480 Output Total 1300 2700 Balance -820 -2700 Intake: Oral 480 Output: Urine 1300 2700 Other: Voiding Method Indwelling Catheter Indwelling Catheter # Voids 1 - Exam GENERAL: The patient is alert and oriented x3, not in any acute distress. Well developed, well nourished. HEENT: Pupils are round and equally reacting to light. EOMI. No scleral icterus. No conjunctival pallor. Normocephalic, atraumatic. No pharyngeal erythema. No thyromegaly. CARDIOVASCULAR: S1 and S2 present. No murmurs, rubs, or gallops. PULMONARY: Chest is clear to auscultation, no wheezing or crackles. ABDOMEN: Soft, nontender, nondistended, normoactive bowel sounds. No palpable organomegaly. MUSCULOSKELETAL: No joint swelling or deformity. EXTREMITIES: No cyanosis, clubbing, or pedal edema. NEUROLOGICAL: Gross neurological examination did not reveal any focal deficits. SKIN: No rashes. no petechiae. - Labs CBC & Chem 7: 10/20/21 05:01 10/21/21 07:17 Labs: Abnormal Lab Results - Last 24 Hours (Table) 10/20/21 10/21/21 Range/Units 13:30 07:17 Sodium 134 L (137-145) mmol/L Potassium 5.5 H (3.5-5.1) mmol/L BUN 27 H (9-20) mg/dL Creatinine 1.31 H (0.66-1.25) mg/dL Glucose 100 H (74-99) mg/dL Urine Protein Trace H (Negative) Urine Blood Large H (Negative) Ur Leukocyte Esterase Trace H (Negative) Urine RBC 45 H (0-5) /hpf Assessment and Plan Assessment: Status post AICD and electric shock with suspected ventricular tachycardia, resolved and patient being discharged on amiodarone taper per heavy truck technician Urinary retention status post Marquis catheter Acute kidney injury Cardiomyopathy with ejection fraction less than 20% History of coronary artery disease status post stent stent placement Paroxysmal atrial fibrillation on liquids Plan: This is a pleasant 71 years old male who presents with firing AICD Cardiology this patient on amiodarone which can be tapered as an outpatient. Patient is cleared by cardiology for discharge Urologist on the case for urinary retention. He will Follow-Up Outpatient. We Will Monitor His Creatinine for Tomorrow, Especially She Is on a Blood Thinner Labs and medication were reviewed.. Continue same treatment. Continue with symptomatic treatment. Resume home medication. Monitor lytes and vitals. DVT and GI prophylaxis. Further recommendations as per clinical course of the patient DVT prophylaxis: Eliquis GI Prophylaxis: Ppi
[2021-10-21] MEDS: FUROSEMIDE 20 MG TAB PO SCH (13:25)
[2021-10-21] MEDS: SODIUM CHLORIDE 0.9% 1,000 ML IV SCH (15:49)
[2021-10-21] MEDS: MONTELUKAST 10 MG TAB PO SCH (22:10)
[2021-10-21] MEDS: LORATADINE 10 MG TAB PO SCH (22:11)
[2021-10-21] MEDS: MIRTAZAPINE 45 MG TABLET PO SCH (22:29)
[2021-10-21] MEDS: DOXEPIN 25 MG CAP PO SCH (22:29)
[2021-10-22] MEDS: SYMBICORT 160-4.5 MCG INHALER INHALATION SCH ×2 (07:54→20:18)
[2021-10-22] MEDS: PANTOPRAZOLE 40 MG TABLET PO SCH (09:13)
[2021-10-22] MEDS: SPIRONOLACTONE 25 MG TAB PO SCH (09:13)
[2021-10-22] MEDS: ASPIRIN 81 MG PO SCH (09:13)
[2021-10-22] MEDS: FUROSEMIDE 40 MG TAB PO SCH (09:13)
[2021-10-22] MEDS: CLOPIDOGREL 75 MG TAB PO SCH (09:13)
[2021-10-22] MEDS: TAMSULOSIN 0.4 MG CAP.ER.24H PO SCH ×2 (09:13→21:31)
[2021-10-22] MEDS: LOSARTAN 50 MG TAB PO SCH (09:13)
[2021-10-22] MEDS: ATORVASTATIN 80 MG TAB PO SCH (09:13)
[2021-10-22] MEDS: APIXABAN 5 MG TAB PO SCH ×2 (09:14→21:32)
[2021-10-22] MEDS: QUEtiapine 200 MG TAB PO SCH ×2 (09:14→21:31)
[2021-10-22] MEDS: carvediloL 12.5 MG TAB PO SCH ×2 (09:14→17:15)
[2021-10-22] MEDS: AMIODARONE 200 MG TAB PO SCH ×2 (09:17→21:32)
[2021-10-22] MEDS: HYDROcodone/APAP 5-325MG 1 EACH TAB PO PRN ×2 (09:20→23:08)
[2021-10-22 09:24] LABS: Basophils # (A) 0.07 X 10*3/uL (0.00-0.10); Basophils % (A) 0.9 %; Eosinophils # (A) 0.52 X 10*3/uL (0.04-0.35); Eosinophils % (A) 6.4 %; HCT 44.6 % (39.6-50.0); HGB 14.1 g/dL (13.0-17.0); Immature Grans, Automated 0.4 %; Lymphocytes # (A) 2.53 X 10*3/uL (0.90-5.00); Lymphocytes % (A) 31.4 %; MCH 27.1 pg (27.0-32.0); MCHC 31.6 g/dL (32.0-37.0); MCV 85.6 fL (80.0-97.0); Mean Platelet Volume 10.4 fL (9.5-12.2); Monocytes # (A) 0.58 X 10*3/uL (0.20-1.00); Monocytes % (A) 7.2 %; NRBC Per 100 WBC 0 /100 WBCS (0.0-0.0); Neutrophils # (A) 4.34 X 10*3/uL (1.80-7.70); Neutrophils % (A) 53.7 %; Platelet Count 402 X 10*3/uL (140-440); RBC 5.21 X 10*6/uL (4.40-5.60); RDW 15.3 % (11.5-14.5); WBC 8.07 X 10*3/uL (4.50-10.00)
[2021-10-22 10:02] LABS: African American GFR (CKD) 54.4 (60.0-200.0); Anion Gap 9.9 mmol/L (10.00-18.00); BUN/Creat Ratio 19.32 Ratio (12.00-20.00); Blood Urea Nitrogen 28.6 mg/dL (9.0-27.0); Calcium 9.5 mg/dL (8.7-10.3); Carbon Dioxide 22.8 mmol/L (20.0-27.5); Non-African American GFR(CKD) 46.9 (60.0-200.0); Potassium 4.8 mmol/L (3.5-5.5)
[2021-10-22] MEDS: POTASSIUM CHLORIDE ER 20 MEQ TAB.ER PO SCH (10:28)
[2021-10-22] MEDS: FUROSEMIDE 10 MG TAB PO SCH (13:00)
[2021-10-22] MEDS: SODIUM CHLORIDE 0.9% 1,000 ML IV SCH (13:29)
--- NOTE | 2021-10-22 16:52 | CT ---
EXAMINATION TYPE: CT abdomen pelvis wo con DATE OF EXAM: 10/22/2021 COMPARISON: 06/02/2021 HISTORY: pelvic/testicular/penile pain CT DLP: 827.2 mGycm Automated exposure control for dose reduction was used. There is some mild scarring and subsegmental atelectasis at the lung bases. Heart is slightly enlarge d. No pericardial effusion. No pleural effusion. There are clips from cholecystectomy. Liver and spleen are intact. No pancreatic mass. The stomach is intact. There is no adrenal mass. Kidneys show normal size and contour. There is no hydronephrosis. Ureters a re not dilated. There is no retroperitoneal adenopathy. Appendix appears normal. There is penile impl ant. There is Marquis catheter in the urinary bladder. Urinary bladder has increased density that could be wall thickening or hemorrhage. There are sigmoid diverticula. No diverticulitis. No mesenteric edema. No ascites or free air. No sig n of a bowel obstruction. The lumbar vertebrae have normal alignment. No compression fracture. Bony pelvis is intact. The hip j oints are intact. IMPRESSION: Increased density in the bladder could be wall thickening or hemorrhage. This is a change compared to the old exam. Normal appendix. Sigmoid diverticulosis without diverticulitis. There is clearing of the pleural fluid and atelectasis to a large extent compared to old exam.
[2021-10-22 18:10] LABS: Albumin 4.4 g/dL (3.5-5.0); Albumin/Globulin Ratio 1.3; Bilirubin,Unconjugated 0.1 mg/dL (0.0-1.1); Globulin 3.4 g/dL; Total Bilirubin 0.3 mg/dL (0.2-1.3); Total Protein 7.8 g/dL (6.3-8.2)
[2021-10-22 19:02] LABS: Appearance,Urine Cloudy (Clear); Bacteria,Urine Rare /hpf; Bilirubin,Urine Negative (Negative); Blood,Urine Large (Negative); Color,Urine Light Red; Glucose,Urine (UA) Negative (Negative); Hyaline Casts,Urine 33 /lpf (0-2); Ketones,Urine Negative (Negative); Leukocyte Esterase,Urine Moderate (Negative); Mucus,Urine Occasional /hpf; Nitrite,Urine Negative (Negative); PH, Urine 5.5 (5.0-8.0); Protein,Urine 1+ (Negative); RBC,Urine >182 /hpf (0-5); Specific Gravity,Urine 1.013 (1.001-1.035); Urobilinogen,Urine <2.0 mg/dL (<2.0); WBC,Urine 60 /hpf (0-5)
--- NOTE | 2021-10-22 19:07 | P.PN ---
Subjective This is a pleasant 71 years old male with multiple medical problems presents when his doctor called him his AICD device has sparked to electrical shocks and he was asked to come to emergency room. Patient was asymptomatic. Ventricular tachycardia is suspected and patient was placed on amiodarone with plan for operative taper as an outpatient. Cardiology actually already. The patient and they don't see the patient on as needed basis. Also urologist . the patient about his urinary retention patient was to keep the Marquis catheter now and he needs to follow up with urologist as an outpatient. Creatinine went up today 1.0 up to 1.3 therefore we will check his level tomorrow. He denies any chest pain or dyspnea. No diarrhea or dysuria or urgency. No fever. Patient informed about his medication of liquids, aspirin and Plavix and risks including but not limited to bleeding are explained for him extensively and he verbalized understanding and acceptance. 10/21/2021 Patient has no more electric shock from his AICD. Sales Warehouse Driver on the case and currently on amiodarone 400 mg with plan to taper down the road in a few days. His ejection fraction was less than 20% however patient with no respiratory difficulty or significant leg edema. He is kept on oral Lasix and Aldactone. He is also on home dose of liquids for his history of paroxysmal atrial fibrillation. Creatinine is elevated but stable today at 1.3. Potassium was high but it was a hemolyzed sample , discussed with bed side nurse to hold his potassium today and check it tomorrow. Patient can be transferred to the general medical floor. Marqusi catheter remains in place and follow-up with urologist as an outpatient, he is been seen by Dr. Scott. 10/22/2021 No more electric shock. He is awake and alert with no chest pain or dyspnea. However patient today is complaining of from lower abdominal pain and epigastric tenderness. Also there is evidence of hematuria in his urinary bladder CT of the abdomen and pelvis without IV contrast is ordered showing increased density in the urinary bladder which could be wall thickening or hemorrhage. Is is a change compared to old exam. Normal appendix. Sigmoid diverticulosis without diverticulitis. There is clearing of the pleural fluid and atelectasis the large extent compared to old exam He is currently on home dose of liquids 5 mg as well as aspirin and Plavix added by new car inspector given his cardiomyopathy and coronary artery disease history with a stent. Also patient with evidence of worsening creatinine 1.5 and hyponatremia down to 129. We held his losartan 50 mg and to consult nephrology team. Objective - Vital Signs Vital signs: Vital Signs Temp 98.0 F 10/22/21 08:00 Pulse 70 10/22/21 08:00 Resp 17 10/22/21 08:00 BP 127/69 10/22/21 08:00 Pulse Ox 99 10/22/21 08:00 FiO2 Intake & Output 10/21/21 10/22/21 10/22/21 18:59 06:59 18:59 Intake Total 180 Output Total 950 2500 Balance -770 -2500 Intake: Oral 180 Output: Urine 950 2500 Other: Voiding Method Indwelling Catheter Indwelling Catheter Indwelling Catheter - Exam GENERAL: The patient is alert and oriented x3, not in any acute distress. Well developed, well nourished. HEENT: Pupils are round and equally reacting to light. EOMI. No scleral icterus. No conjunctival pallor. Normocephalic, atraumatic. No pharyngeal erythema. No thyromegaly. CARDIOVASCULAR: S1 and S2 present. No murmurs, rubs, or gallops. PULMONARY: Chest is clear to auscultation, no wheezing or crackles. ABDOMEN: Soft, nontender, nondistended, normoactive bowel sounds. No palpable organomegaly. MUSCULOSKELETAL: No joint swelling or deformity. EXTREMITIES: No cyanosis, clubbing, or pedal edema. NEUROLOGICAL: Gross neurological examination did not reveal any focal deficits. SKIN: No rashes. no petechiae. - Labs CBC & Chem 7: 10/22/21 05:42 10/22/21 05:42 Labs: Abnormal Lab Results - Last 24 Hours (Table) 10/22/21 10/22/21 Range/Units 05:42 05:42 MCHC 31.6 L (32.0-37.0) g/dL RDW 15.3 H (11.5-14.5) % Eosinophils # 0.52 H (0.04-0.35) X 10*3/uL Sodium 129 L (135-145) mmol/L Anion Gap 9.90 L (10.00-18.00) mmol/L BUN 28.6 H (9.0-27.0) mg/dL Est GFR (CKD-EPI)AfAm 54.4 L (60.0-200.0) Est GFR (CKD-EPI)NonAf 46.9 L (60.0-200.0) Assessment and Plan Assessment: Status post AICD and electric shock with suspected ventricular tachycardia, resolved and patient being discharged on amiodarone taper per new car inspector Urinary retention status post Marquis catheter possible hemorrhage into her urinary bladder versus thickened urinary bladder wall Acute kidney injury Epigastric pain and tenderness Cardiomyopathy with ejection fraction less than 20% History of coronary artery disease status post stent stent placement Paroxysmal atrial fibrillation on liquids Plan: This is a pleasant 71 years old male who presents with firing AICD Cardiology this patient on amiodarone which can be tapered as per new car inspector and could be done as an outpatient. Patient is cleared by cardiology for discharge Urologist on the case for urinary retention. He will Follow-Up Outpatient. Consult concrete block mason for acute kidney injury and other renal problem. Hold losartan 50 mg. Reorder urine analysis We Will Monitor His Creatinine for Tomorrow, Especially She Is on a Blood Thinner Labs and medication were reviewed.. Continue same treatment. Continue with symptomatic treatment. Resume home medication. Monitor lytes and vitals. DVT and GI prophylaxis. Further recommendations as per clinical course of the patient DVT prophylaxis: Eliquis GI Prophylaxis: Ppi
[2021-10-22] MEDS: DOXEPIN 25 MG CAP PO SCH (21:31)
[2021-10-22] MEDS: MONTELUKAST 10 MG TAB PO SCH (21:31)
[2021-10-22] MEDS: MIRTAZAPINE 45 MG TABLET PO SCH (21:31)
[2021-10-22] MEDS: LORATADINE 10 MG TAB PO SCH (21:32)
[2021-10-23] MEDS: CEFEPIME 1 GM in SODIUM CHLORIDE 0.9% 50 ML IVPB SCH ×2 (03:00→14:46)
--- NOTE | 2021-10-23 07:44 | XR ---
EXAMINATION TYPE: XR chest 1V DATE OF EXAM: 10/23/2021 CLINICAL HISTORY: Difficulty breathing progress study. TECHNIQUE: Single AP portable frontal view of the chest is obtained. COMPARISON: Chest x-ray from October 16, 2021 FINDINGS: Persistent cardiomegaly with dual lead pacemaker/defibrillator. Persistent bibasilar opaci ties favoring scarring and/or atelectasis. Upper lungs remain clear without pneumothorax. Cholecystec dena clips are seen. Dextroconvex scoliosis is noted IMPRESSION: Cardiomegaly with bibasilar linear scarring and/or atelectasis redemonstrated. Suspect sm all to tiny left pleural effusion. No new suspicious focal infiltrate.
[2021-10-23] MEDS: SYMBICORT 160-4.5 MCG INHALER INHALATION SCH ×2 (08:36→21:00)
[2021-10-23] MEDS: ASPIRIN 81 MG PO SCH (08:37)
[2021-10-23] MEDS: PANTOPRAZOLE 40 MG TABLET PO SCH (08:37)
[2021-10-23] MEDS: TAMSULOSIN 0.4 MG CAP.ER.24H PO SCH ×2 (08:37→20:56)
[2021-10-23] MEDS: SPIRONOLACTONE 25 MG TAB PO SCH (08:37)
[2021-10-23] MEDS: FUROSEMIDE 40 MG TAB PO SCH (08:37)
[2021-10-23] MEDS: HYDROcodone/APAP 5-325MG 1 EACH TAB PO PRN (08:37)
[2021-10-23] MEDS: CITALOPRAM HYDROBROMIDE 10 MG TAB PO SCH (08:38)
[2021-10-23] MEDS: POTASSIUM CHLORIDE ER 20 MEQ TAB.ER PO SCH (08:38)
[2021-10-23] MEDS: APIXABAN 5 MG TAB PO SCH ×2 (08:38→20:56)
[2021-10-23] MEDS: carvediloL 12.5 MG TAB PO SCH ×2 (08:38→15:53)
[2021-10-23] MEDS: CLOPIDOGREL 75 MG TAB PO SCH (08:38)
[2021-10-23] MEDS: ATORVASTATIN 80 MG TAB PO SCH (08:38)
[2021-10-23] MEDS: AMIODARONE 200 MG TAB PO SCH ×2 (08:39→20:56)
[2021-10-23] MEDS: QUEtiapine 200 MG TAB PO SCH ×2 (08:42→20:57)
--- NOTE | 2021-10-23 09:10 | CDI ---
Documentation Clarification Form Date: 10/23/2021 08:55:13 AM From: Annie CliftonReganPAZ nicholson, CCDS Admit Date: 10/16/2021 02:56:00 PM Patient Name: Rayray Stewart Visit Number: [id number] Discharge Date: ATTENTION: The Clinical Documentation Specialists (CDI) and [facility] Coding Staff appreciate your assistance in clarifying documentation. Please respond to the clarification below the line at the bottom and electronically sign. The CDI & [facility] Coding staff will review the response and follow-up if needed. Please note: Queries are made part of the Legal Health Record. If you have any questions, please contact the author of this message via ITS. Dr. Roxanna Patel: The following is documented in the 10/22 Attending Physician Progress Note: Urine analysis came back positive for UTI, patient was started on Cefepime empirically for possible hospital-acquired infection to cover gram-negative bacteria. Follow up urine culture. Per the H/P 10/16, the patient was seen in the ED on 10/14 complaining of urinary retention, had a Marquis catheter reinserted and was discharged home to follow up with Urologist as outpatient. Additional clarification regarding the etiology of the UTI is requested. History/Risk Factors per the 10/16 H/P: Atrial Fibrillation, Asthma, CAD with Stent and AICD, Heart Failure, COPD, CVA with mild memory loss, GERD, Hyperlipidemia, Hypertension, Pneumonia, Sleep apnea, IVCs, Cardiomyopathy, Anxiety, Depression and Former smoker. Clinical Indicators: Presented to the ED on 10/16 with AICD firing at home. Admit with Arrhythmia and Ventricular tachycardia. Admit date 10/16. 10/16 Urine Culture from cath: final: negative. 10/20 UA: Light yellow, clear, Trace Protein, Large Blood, Trace Esterase, RBC 45 10/22 UA: Light Red, Cloudy, 1+ Protein, Large Blood, Moderate Esterase, RBC >182, WBC 60, Hyaline casts 33. 10/22 Urine Culture: preliminary. (*Postive per Attending Progress Note: gram- negative bacteria) Treatment 10/16: Urology consulted, IV Dextrose/Water w/Amiodarone 103 mls @ 618 mls/hr q10M, IV Amiodarone in Dextrose 200 mls @ 31.333 mls/hr q6H, po Mag Oxide 400 mg x1, po Kcl 40 meq x1, IV Dilauid 0.5 mg q3H/prn 8/1 IV Cefepime 50 mls @ 125 mls/hr q12H Please clarify the etiology of the UTI, if known: [ xxx ] UTI related to Marquis catheter [ ] UTI not related to Marquis catheter [ ] Other condition, please specify [ ] Unable to determine (Template Last Revised: May 2020) MTDD
[2021-10-23 09:17] LABS: Basophils # (A) 0.06 X 10*3/uL (0.00-0.10); Basophils % (A) 0.8 %; Eosinophils # (A) 0.57 X 10*3/uL (0.04-0.35); Eosinophils % (A) 7.5 %; HCT 45.6 % (39.6-50.0); HGB 14.3 g/dL (13.0-17.0); Immature Grans, Automated 0.3 %; Lymphocytes # (A) 2.58 X 10*3/uL (0.90-5.00); Lymphocytes % (A) 34.1 %; MCH 26.7 pg (27.0-32.0); MCHC 31.4 g/dL (32.0-37.0); MCV 85.1 fL (80.0-97.0); Monocytes # (A) 0.61 X 10*3/uL (0.20-1.00); Monocytes % (A) 8.1 %; NRBC Per 100 WBC 0 /100 WBCS (0.0-0.0); Neutrophils # (A) 3.73 X 10*3/uL (1.80-7.70); Neutrophils % (A) 49.2 %; Platelet Count 400 X 10*3/uL (140-440); RBC 5.36 X 10*6/uL (4.40-5.60); RDW 15.2 % (11.5-14.5); WBC 7.57 X 10*3/uL (4.50-10.00)
[2021-10-23 09:41] LABS: Magnesium 2.1 mg/dL (1.5-2.4)
--- NOTE | 2021-10-23 10:01 | P.NPCON ---
History of Present Illness - Reason for Consult acute renal failure - History of Present Illness Reason for consultation: Acute kidney injury History of present illness: Patient is a 71-year-old male seen in renal consultation for acute kidney injury. Patient's baseline creatinine is near 1 and was up to 1.5 yesterday. Patient presented to the hospital on 10/16/2021 after he was told by his mountain bike guide or the hospital due to firing of his AICD. Patient was having episodes of chest tightness as well. Patient was initially on IV amiodarone. He underwent cardiac catheterization on 10/18/2021 with stenting of the proximal RCA and stenting of the mid stent restenotic lesion. Patient does have ischemic cardiomyopathy with ejection fraction of about 20% with moderate pulmonary hypertension. CAT scan showed no evidence of hydronephrosis. Patient currently has a Marquis catheter for urinary retention is being followed by urology. He denies chest pain or shortness breath at this time. He is nonoliguric with urine output of over 3 L in the last 24 hours. Hemodynamically stable. He denies history of diabetes. He is currently on 40 mg oral Lasix in the morning and 10 mg in the afternoon. Vital signs are stable. General: Awake. No acute distress. HEENT: Head exam is unremarkable. LUNGS: Breath sounds decreased. HEART: Rate and Rhythm are regular. ABDOMEN: Soft, no distention. EXTREMITITES: No edema. 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 Stovall, gout bilateral feet, occasional numbness L leg/L great toe, hx of PHIL with CPAP but no longer an issue since wt. 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 History of Any Multi-Drug Resistant Organisms: None Reported Past Surgical History: AICD, Cholecystectomy, Heart Catheterization, Heart Catheterization With Stent, Hernia Repair, Pacemaker, Tonsillectomy Additional Past Surgical History / Comment(s): 07/24/14 EGD/colonoscopy with polypectomy/bx, 2005 AICD/2014 AICD changed to medtronic, 2002 Cardiac stent in [place], 2007 cardiac cath [facility], upper teeth extracted for denture, L ear has tube, R ear plugged, cyst removed L eyelid, bilateral cataract removal, L ganglion cyst removal, L/R inguinal hernia repairs with mesh, penile implant. Past Anesthesia/Blood Transfusion Reactions: No Reported Reaction Date of Last Stent Placement:: 2002 Type of Cardiac Device: AICD Device Placement Date:: 2014 Past Psychological History: Anxiety, Depression Additional Psychological History / Comment(s): Pt lives alone in an apartment. He uses no assistive device but wonders if he should. He states he has had no falls. He does not own a vehicle so he uses [facility] to get to appointments. He has a medication dispenser thru [facility]. Smoking Status: Former smoker Past Alcohol Use History: None Reported Additional Past Alcohol Use History / Comment(s): Pt started smoking an occasional cigar a few years ago. Past Drug Use History: None Reported - Past Family History Father Family Medical History: Coronary Artery Disease (CAD), Pneumonia Additional Family Medical History / Comment(s): Father of pneumonia at the age of 82 yrs. Mother Family Medical History: Liver Disease, Renal Disease Additional Family Medical History / Comment(s): father passed after a bout with pneumonia Medications and Allergies Home Medications Medication Instructions Recorded Confirmed Type Mirtazapine 45 mg PO HS 04/01/14 10/16/21 History Omeprazole 40 mg PO AC-BRKFST 04/01/14 10/16/21 History QUEtiapine [SEROquel] 200 mg PO BID 04/01/14 10/16/21 History Spironolactone [Aldactone] 25 mg PO DAILY 04/01/14 10/16/21 History Budesonide/Formoterol Fumarate 2 puff INHALATION RT-BID 07/20/14 10/16/21 History [Symbicort 160-4.5 Mcg Inhaler] Citalopram Hydrobromide [CeleXA] 10 mg PO DAILY 07/20/14 10/16/21 History Levocetirizine Dihydrochloride 5 mg PO HS 07/20/14 10/16/21 History Montelukast [Singulair] 10 mg PO HS 07/20/14 10/16/21 History Apixaban [Eliquis] 5 mg PO BID 06/02/20 10/16/21 History Atorvastatin [Lipitor] 20 mg PO DAILY 06/02/20 10/16/21 History Nitroglycerin Sl Tabs [Nitrostat] 0.4 mg SL Q5M PRN 06/06/20 10/16/21 History Albuterol Inhaler [Ventolin Hfa 2 puff INHALATION RT-QID PRN 05/29/21 10/16/21 History Inhaler] carvediloL [Coreg] 12.5 mg PO BID-W/MEALS 05/29/21 10/16/21 History Doxepin [SINEquan] 25 mg PO HS cap 06/06/21 10/16/21 Rx Losartan [Cozaar] 50 mg PO DAILY #30 tab 06/06/21 10/16/21 Rx Tamsulosin [Flomax] 0.4 mg PO PC-BRKFST #30 cap 06/06/21 10/16/21 Rx Fluticasone Nasal [place] [Flonase 2 spr EA NOSTRIL DAILY PRN 06/16/21 10/16/21 History Nasal [place]] cefUROXime axetiL [Ceftin] 500 mg PO BID 7 Days #14 tab 10/13/21 10/16/21 Rx Potassium Chloride [K-Tab ER] 20 meq PO DAILY 5 Days #5 tab 10/14/21 10/16/21 Rx Furosemide [Lasix] 20 mg PO DAILY@1400 10/16/21 10/16/21 History Furosemide [Lasix] 40 mg PO DAILY 10/16/21 10/16/21 History Oxybutynin Chloride [Ditropan] 5 mg PO DAILY 10/16/21 10/16/21 History Amiodarone [Cordarone] 400 mg PO Q12H #120 tab 10/20/21 Rx Allergies Allergy/AdvReac Type Severity Reaction Status Date / Time Barbiturates Allergy Anaphylaxis Verified 10/16/21 13:51 levofloxacin [From Levaquin] Allergy Dyspnea & Verified 10/16/21 13:51 Leg Swelling and Pain & Headache Physical Exam Vitals: Vital Signs Temp Pulse Resp BP Pulse Ox 10/23/21 07:32 97.6 F 58 L 22 117/82 98 08/01/22 02:00 98 F 60 16 144/82 99 10/22/21 19:00 98.2 F 63 16 144/73 96 10/22/21 14:00 98.0 F 60 18 111/72 96 Intake and Output 10/22/21 10/23/21 10/23/21 22:59 06:59 14:59 Output Total 600 Balance -600 Output: Urine 600 Other: Voiding Method Indwelling Catheter Results - Lab Results Most recent lab results Calcium 9.5 mg/dL (8.7-10.3) 10/22/21 05:42 Magnesium 2.1 mg/dL (1.5-2.4) 10/23/21 05:46 10/23/21 05:46 10/22/21 05:42 Assessment and Plan Plan: Assessment: 1. Acute kidney injury secondary to ATN secondary to contrast-induced acute kidney injury. Baseline creatinine near 1 and peaked at 1.5 yesterday. No hydronephrosis noted on CAT scan. 2. Urinary retention. Being followed by urology. Has a Marquis catheter. On Flomax as well. 3. Ischemic cardiomyopathy with AICD. Ejection fraction is 20% with moderate pulmonary hypertension. 4. Status post stenting of the proximal RCA and mid stent restenotic lesion 10/18/2021. 5. Hyponatremia secondary to acute kidney injury. Plan: Add 1500 mL fluid restriction. Encourage oral intake. Low-salt diet. Will hold Lasix if renal function worsening. Follow-up morning labs. Avoid nephrotoxins. Continue to hold Cozaar for now.
[2021-10-23 10:18] LABS: ALT 24 U/L (10-49); AST 23 U/L (14-35); African American GFR (CKD) 53.5 (60.0-200.0); Albumin 3.9 g/dL (3.8-4.9); Albumin/Globulin Ratio 1.26 (1.60-3.17); Alkaline Phosphatase 85 U/L (41-126); Bilirubin, Conjugated <0.20 mg/dL (0.20-0.40); Blood Urea Nitrogen 31.8 mg/dL (9.0-27.0); Calcium 9.9 mg/dL (8.7-10.3); Carbon Dioxide 24.1 mmol/L (20.0-27.5); Chloride 97 mmol/L (96-109); Globulin 3.1 g/dL (1.6-3.3); Glucose 101 mg/dL (70-110); Non-African American GFR(CKD) 46.2 (60.0-200.0); Potassium 5.4 mmol/L (3.5-5.5); Sodium 132 mmol/L (135-145)
--- NOTE | 2021-10-23 13:52 | P.GSCN ---
History of Present Illness Consult date: 10/23/21 History of present illness: CHIEF COMPLAINT: AICD firing Reason for consult: Abdominal pain HISTORY OF PRESENT ILLNESS: This is a 71-year-old male who presented to the ER due to his AICD device firing. Patient is on the ventricle tachycardia. He's been evaluated by cardiology. Also seen by urology and regards to his urinary retention and had Marquis catheter placed. Flomax was increased to twice a day. Patient also had reported pain at the penile implant. Again followed by urology. They noted eroding outside the corporal body however the skin over this is intact and reported that patient would not require treatment unless the cylinder tip erodes through the penile skin. Penile implant was placed 17 years ago. Patient also has evidence of a UTI and is on antibiotics. Surgical service has been consulted in regards to patient's abdominal pain. Patient reports that his pain is in the middle of his abdomen near his bellybutton. He's had this pain for about 3 weeks. Denies any epigastric abdominal pain. He denies any nausea or vomiting. Denies any black stools or blood in his stools. He had previous GI bleed due to diverticular bleed. Last colonoscopy was May 2021 with a severe diverticulosis. Patient reports his last EGD was 4 years ago . Patient is tolerating a heart healthy diet. Computed tomography scan abdomen and pelvis shows increased density and bladder could be wall thickening or hemorrhage. This is a change compared to old exam. Normal appendix. Sigmoid diverticulosis without diverticulitis. There is clearing of the pleural fluid and atelectasis. Patient does report since Marquis catheter has been placed his abdominal pain has shown improvement. He is on Eliquis and Plavix due to his cardiac history. He denies any fever, chills or sweats. Patient seen and examined with Dr. martin PAST MEDICAL HISTORY: Atrial Fibrillation, Asthma, Coronary Artery Disease (CAD), Heart Failure, COPD, CVA/TIA, GERD/Reflux, Hearing Disorder / Deafness, Hyperlipidemia, Hypertension, Pneumonia, Sleep Apnea/CPAP/BIPAP, Syncope, ischemic cardiomyopathy status post AICD. EF less than 20% PAST SURGICAL HISTORY: Cholecystectomy, heart catheterization with cardiac stents, hernia repair, MEDICATIONS: See list. ALLERGIES: See list. SOCIAL HISTORY: No illicit drug use. REVIEW OF SYSTEMS: CONSTITUTIONAL: Denies fever or chills. HEENT: Denies blurred vision, vision changes, or eye pain. Denies hemoptysis CARDIOVASCULAR: Denies chest pain or pressure. RESPIRATORY: No shortness of breath. GASTROINTESTINAL: See HPI for pertinent findings HEMATOLOGIC: Denies bleeding disorders. GENITOURINARY: Denies any blood in urine or increased urinary frequency. SKIN: Denies pruitis. Denies rash. PHYSICAL EXAM: VITAL SIGNS: Reviewed GENERAL: Well-developed in no acute distress. HEENT: No sclera icterus. Extraocular movements grossly intact. Moist buccal mucosa. Head is atraumatic, normocephalic. No nasal drainage. ABDOMEN: Soft. Nondistended. Tenderness to palpation of the umbilicus and left lower abdomen. Marquis catheter with evidence of hematuria NEUROLOGIC: Alert and oriented. Cranial nerves II through XII grossly intact. LABORATORY DATA: WBC is 7.57 Hgb 14.3 platelets 400 Sodium is 132 potassium is 5.4 creatinine 1.5 IMAGING: Computed tomography scan as stated above ASSESSMENT: 1. Abdominal pain 2. Urinary retention 3. UTI PLAN: -No surgical intervention planned -Continue supportive care -Continue antibiotics for UTI -Continue urology recommendations for urinary retention Thank you for this consultation Physician Mash Tub Cooker Operator note has been reviewed by physician. Signing provider agrees with the documented findings, assessment, and plan of care. 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 Stovall, gout bilateral feet, occasional numbness L leg/L great toe, hx of PHIL with CPAP but no longer an issue since wt. 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 History of Any Multi-Drug Resistant Organisms: None Reported Past Surgical History: AICD, Cholecystectomy, Heart Catheterization, Heart Catheterization With Stent, Hernia Repair, Pacemaker, Tonsillectomy Additional Past Surgical History / Comment(s): 07/24/14 EGD/colonoscopy with polypectomy/bx, 2005 AICD/2014 AICD changed to medtronic, 2002 Cardiac stent in [place], 2007 cardiac cath [facility], upper teeth extracted for denture, L ear has tube, R ear plugged, cyst removed L eyelid, bilateral cataract removal, L ganglion cyst removal, L/R inguinal hernia repairs with mesh, penile implant. Past Anesthesia/Blood Transfusion Reactions: No Reported Reaction Date of Last Stent Placement:: 2002 Type of Cardiac Device: AICD Device Placement Date:: 2014 Past Psychological History: Anxiety, Depression Additional Psychological History / Comment(s): Pt lives alone in an apartment. He uses no assistive device but wonders if he should. He states he has had no falls. He does not own a vehicle so he uses [employer] [facility] to get to appointments. He has a medication dispenser thru [facility]. Smoking Status: Former smoker Past Alcohol Use History: None Reported Additional Past Alcohol Use History / Comment(s): Pt started smoking an occasional cigar a few years ago. Past Drug Use History: None Reported - Past Family History Father Family Medical History: Coronary Artery Disease (CAD), Pneumonia Additional Family Medical History / Comment(s): Father of pneumonia at the age of 82 yrs. Mother Family Medical History: Liver Disease, Renal Disease Additional Family Medical History / Comment(s): father passed after a bout with pneumonia Medications and Allergies Home Medications Medication Instructions Recorded Confirmed Type Mirtazapine 45 mg PO HS 04/01/14 10/16/21 History Omeprazole 40 mg PO AC-BRKFST 04/01/14 10/16/21 History QUEtiapine [SEROquel] 200 mg PO BID 04/01/14 10/16/21 History Spironolactone [Aldactone] 25 mg PO DAILY 04/01/14 10/16/21 History Budesonide/Formoterol Fumarate 2 puff INHALATION RT-BID 07/20/14 10/16/21 History [Symbicort 160-4.5 Mcg Inhaler] Citalopram Hydrobromide [CeleXA] 10 mg PO DAILY 07/20/14 10/16/21 History Levocetirizine Dihydrochloride 5 mg PO HS 07/20/14 10/16/21 History Montelukast [Singulair] 10 mg PO HS 07/20/14 10/16/21 History Apixaban [Eliquis] 5 mg PO BID 06/02/20 10/16/21 History Atorvastatin [Lipitor] 20 mg PO DAILY 06/02/20 10/16/21 History Nitroglycerin Sl Tabs [Nitrostat] 0.4 mg SL Q5M PRN 06/06/20 10/16/21 History Albuterol Inhaler [Ventolin Hfa 2 puff INHALATION RT-QID PRN 05/29/21 10/16/21 History Inhaler] carvediloL [Coreg] 12.5 mg PO BID-W/MEALS 05/29/21 10/16/21 History Doxepin [SINEquan] 25 mg PO HS cap 06/06/21 10/16/21 Rx Losartan [Cozaar] 50 mg PO DAILY #30 tab 06/06/21 10/16/21 Rx Tamsulosin [Flomax] 0.4 mg PO PC-BRKFST #30 cap 06/06/21 10/16/21 Rx Fluticasone Nasal [place] [Flonase 2 spr EA NOSTRIL DAILY PRN 06/16/21 10/16/21 History Nasal [place]] cefUROXime axetiL [Ceftin] 500 mg PO BID 7 Days #14 tab 10/13/21 10/16/21 Rx Potassium Chloride [K-Tab ER] 20 meq PO DAILY 5 Days #5 tab 10/14/21 10/16/21 Rx Furosemide [Lasix] 20 mg PO DAILY@1400 10/16/21 10/16/21 History Furosemide [Lasix] 40 mg PO DAILY 10/16/21 10/16/21 History Oxybutynin Chloride [Ditropan] 5 mg PO DAILY 10/16/21 10/16/21 History Amiodarone [Cordarone] 400 mg PO Q12H #120 tab 10/20/21 Rx Allergies Allergy/AdvReac Type Severity Reaction Status Date / Time Barbiturates Allergy Anaphylaxis Verified 10/16/21 13:51 levofloxacin [From Levaquin] Allergy Dyspnea & Verified 10/16/21 13:51 Leg Swelling and Pain & Headache Surgical - Exam Vital Signs Temp Pulse Resp BP Pulse Ox 97.6 F 68 18 137/79 96 10/16/21 13:47 10/16/21 13:47 10/16/21 13:47 10/16/21 13:47 10/16/21 13:47 Results - Labs 10/23/21 05:46 10/23/21 05:46 Abnormal Lab Results - Last 24 Hours (Table) 10/22/21 10/23/21 Range/Units Unknown 05:46 MCH 26.7 L (27.0-32.0) pg MCHC 31.4 L (32.0-37.0) g/dL RDW 15.2 H (11.5-14.5) % Eosinophils # 0.57 H (0.04-0.35) X 10*3/uL Urine Protein 1+ H (Negative) Urine Blood Large H (Negative) Ur Leukocyte Esterase Moderate H (Negative) Urine RBC >182 H (0-5) /hpf Urine WBC 60 H (0-5) /hpf Urine Bacteria Rare H (None) /hpf Hyaline Casts 33 H (0-2) /lpf Urine Mucus Occasional H (None) /hpf Microbiology - Last 24 Hours (Table) 10/22/21 Unknown Urine Culture - Preliminary Urine,Voided Diabetes panel 10/22/21 Range/Units 17:45 AST 28 (17-59) U/L ALT 25 (4-49) U/L Alkaline Phosphatase 109 (38-126) U/L Total Protein 7.8 (6.3-8.2) g/dL Albumin 4.4 (3.5-5.0) g/dL Calcium panel 10/22/21 Range/Units 17:45 Albumin 4.4 (3.5-5.0) g/dL Adrenal panel 10/22/21 Range/Units 17:45 Total Bilirubin 0.3 (0.2-1.3) mg/dL AST 28 (17-59) U/L ALT 25 (4-49) U/L Alkaline Phosphatase 109 (38-126) U/L Total Protein 7.8 (6.3-8.2) g/dL Albumin 4.4 (3.5-5.0) g/dL
[2021-10-23] MEDS: FUROSEMIDE 10 MG TAB PO SCH (14:15)
[2021-10-23 15:23] VITALS: BMI 29.7
[2021-10-23] MEDS: SODIUM CHLORIDE 0.9% 1,000 ML IV SCH (16:27)
[2021-10-23] MEDS: LORATADINE 10 MG TAB PO SCH (20:56)
[2021-10-23] MEDS: MIRTAZAPINE 45 MG TABLET PO SCH (20:57)
[2021-10-23] MEDS: MONTELUKAST 10 MG TAB PO SCH (20:57)
[2021-10-23] MEDS: DOXEPIN 25 MG CAP PO SCH (20:57)
[2021-10-24] MEDS: CEFEPIME 1 GM in SODIUM CHLORIDE 0.9% 50 ML IVPB SCH ×2 (01:08→13:55)
[2021-10-24] MEDS: FUROSEMIDE 40 MG TAB PO SCH ×2 (07:57→10:22)
[2021-10-24] MEDS: HYDROcodone/APAP 5-325MG 1 EACH TAB PO PRN ×2 (08:01→17:20)
[2021-10-24 08:43] LABS: Basophils # (A) 0.07 X 10*3/uL (0.00-0.10); Basophils % (A) 0.8 %; Eosinophils # (A) 0.52 X 10*3/uL (0.04-0.35); Eosinophils % (A) 6.3 %; HCT 44.1 % (39.6-50.0); HGB 14.4 g/dL (13.0-17.0); Immature Grans, Automated 0.4 %; Lymphocytes % (A) 31.3 %; MCH 27.5 pg (27.0-32.0); MCHC 32.7 g/dL (32.0-37.0); MCV 84.2 fL (80.0-97.0); Mean Platelet Volume 10.1 fL (9.5-12.2); Monocytes # (A) 0.65 X 10*3/uL (0.20-1.00); Monocytes % (A) 7.8 %; NRBC Per 100 WBC 0 /100 WBCS (0.0-0.0); Neutrophils # (A) 4.45 X 10*3/uL (1.80-7.70); Neutrophils % (A) 53.4 %; Platelet Count 415 X 10*3/uL (140-440); RBC 5.24 X 10*6/uL (4.40-5.60); WBC 8.32 X 10*3/uL (4.50-10.00)
[2021-10-24 09:04] LABS: African American GFR (CKD) 63.6 (60.0-200.0); Albumin/Globulin Ratio 1.29 (1.60-3.17); Anion Gap 12.1 mmol/L (10.00-18.00); BUN/Creat Ratio 20.85 Ratio (12.00-20.00); Blood Urea Nitrogen 27.1 mg/dL (9.0-27.0); Calcium 9.4 mg/dL (8.7-10.3); Carbon Dioxide 22.9 mmol/L (20.0-27.5); Globulin 3.1 g/dL (1.6-3.3); Magnesium 2.1 mg/dL (1.5-2.4); Non-African American GFR(CKD) 54.9 (60.0-200.0); Total Bilirubin 0.3 mg/dL (0.30-1.20); Total Protein 7.1 g/dL (6.2-8.2)
[2021-10-24] MEDS: SYMBICORT 160-4.5 MCG INHALER INHALATION SCH ×2 (09:43→21:19)
--- NOTE | 2021-10-24 09:43 | P.PN ---
Subjective Patient is seen in follow-up for acute kidney injury. Renal function better today. Nonoliguric. Urine output near 5 L in the last 24 hours. Hemo dynamically stable. No vomiting or diarrhea. Vital signs are stable. General: Awake. No acute distress. HEENT: Head exam is unremarkable. LUNGS: Breath sounds decreased. HEART: Rate and Rhythm are regular. ABDOMEN: Soft, no distention. EXTREMITITES: No edema. Objective - Vital Signs Vital signs: Vital Signs Temp 99.9 F H 10/24/21 07:41 Pulse 62 10/24/21 07:41 Resp 18 10/24/21 07:41 BP 144/72 10/24/21 07:41 Pulse Ox 96 10/24/21 07:41 FiO2 Intake & Output 10/23/21 10/24/21 10/24/21 18:59 06:59 18:59 Intake Total 800 Output Total 3800 1100 Balance -3000 -1100 Weight 105.233 kg Intake: Oral 800 Output: Urine 3800 1100 Other: Voiding Method Indwelling Catheter - Labs CBC & Chem 7: 10/24/21 05:54 10/24/21 05:54 Labs: Abnormal Lab Results - Last 24 Hours (Table) 10/23/21 10/24/21 10/24/21 Range/Units 05:46 05:54 05:54 RDW 15.0 H (11.5-14.5) % Eosinophils # 0.52 H (0.04-0.35) X 10*3/uL Sodium 132 L 132 L (135-145) mmol/L BUN 31.8 H 27.1 H (9.0-27.0) mg/dL Est GFR (CKD-EPI)AfAm 53.5 L (60.0-200.0) Est GFR (CKD-EPI)NonAf 46.2 L 54.9 L (60.0-200.0) BUN/Creatinine Ratio 21.20 H 20.85 H (12.00-20.00) Ratio Total Bilirubin 0.20 L (0.30-1.20) mg/dL Conjugated Bilirubin <0.20 L (0.20-0.40) mg/dL Albumin/Globulin Ratio 1.26 L 1.29 L (1.60-3.17) g/dL Microbiology - Last 24 Hours (Table) 07/31/22 Unknown Urine Culture - Final Urine,Voided Assessment and Plan Plan: Assessment: 1. Acute kidney injury secondary to ATN secondary to contrast-induced acute kidney injury. Baseline creatinine near 1 and peaked at 1.5 this admission - 1.3 today. No hydronephrosis noted on CAT scan. 2. Urinary retention. Being followed by urology. Has a Marquis catheter. On Flomax as well. 3. Ischemic cardiomyopathy with AICD. Ejection fraction is 20% with moderate pulmonary hypertension. 4. Status post stenting of the proximal RCA and mid stent restenotic lesion 10/18/2021. 5. Hyponatremia secondary to acute kidney injury. Stable. Plan: Maintain 1500 mL fluid restriction. Encourage oral intake. Low-salt diet. Continue with Lasix 40 mg orally once daily. Avoid nephrotoxins.
[2021-10-24] MEDS: AMIODARONE 200 MG TAB PO SCH ×2 (10:19→21:12)
[2021-10-24] MEDS: carvediloL 12.5 MG TAB PO SCH ×2 (10:21→17:20)
[2021-10-24] MEDS: PANTOPRAZOLE 40 MG TABLET PO SCH (10:21)
[2021-10-24] MEDS: APIXABAN 5 MG TAB PO SCH ×2 (10:21→21:13)
[2021-10-24] MEDS: CITALOPRAM HYDROBROMIDE 10 MG TAB PO SCH (10:22)
[2021-10-24] MEDS: ATORVASTATIN 80 MG TAB PO SCH (10:22)
[2021-10-24] MEDS: SPIRONOLACTONE 25 MG TAB PO SCH (10:22)
[2021-10-24] MEDS: CLOPIDOGREL 75 MG TAB PO SCH (10:22)
[2021-10-24] MEDS: TAMSULOSIN 0.4 MG CAP.ER.24H PO SCH ×2 (10:22→21:12)
[2021-10-24] MEDS: QUEtiapine 200 MG TAB PO SCH ×2 (10:22→21:13)
[2021-10-24] MEDS: ASPIRIN 81 MG PO SCH (10:22)
--- NOTE | 2021-10-24 12:05 | P.PN ---
Subjective Progress Note Date: 10/24/21 CHIEF COMPLAINT: Abdominal pain HISTORY OF PRESENT ILLNESS: Patient is lying in bed comfortably. He does report that his abdominal pain is feeling better. He does complain of discomfort at Marquis catheter insertion. Does have evidence of hematuria. Denies any nausea or vomiting. He is tolerating diet heart healthy diet. Afebrile. Does report having regular bowel movements. Afebrile. WBC is 8.32H to be 14.4 creatinine is 1.3 Patient seen and examined with Dr. martin PHYSICAL EXAM: VITAL SIGNS: Reviewed. GENERAL: Well-developed in no acute distress. HEENT: No sclera icterus. Extraocular movements grossly intact. Moist buccal mucosa. Head is atraumatic, normocephalic. ABDOMEN: Soft. Nondistended. Nontender. NEUROLOGIC: Alert and oriented. Cranial nerves II through XII grossly intact. ASSESSMENT: 1. Abdominal pain 2. Urinary retention 3. UTI PLAN: -No surgical intervention planned -Continue supportive care -Continue antibiotics for UTI -Continue urology recommendations for urinary retention Physician Crime Scene Investigator note has been reviewed by physician. Signing provider agrees with the documented findings, assessment, and plan of care. Objective - Vital Signs Vital signs: Vital Signs Temp 99.9 F H 10/24/21 07:41 Pulse 62 10/24/21 07:41 Resp 18 10/24/21 07:41 BP 144/72 10/24/21 07:41 Pulse Ox 96 10/24/21 07:41 FiO2 Intake & Output 10/23/21 10/24/21 10/24/21 18:59 06:59 18:59 Intake Total 800 Output Total 3800 1100 Balance -3000 -1100 Weight 105.233 kg Intake: Oral 800 Output: Urine 3800 1100 Other: Voiding Method Indwelling Catheter - Labs CBC & Chem 7: 10/24/21 05:54 10/24/21 05:54 Labs: Abnormal Lab Results - Last 24 Hours (Table) 10/24/21 10/24/21 Range/Units 05:54 05:54 RDW 15.0 H (11.5-14.5) % Eosinophils # 0.52 H (0.04-0.35) X 10*3/uL Sodium 132 L (135-145) mmol/L BUN 27.1 H (9.0-27.0) mg/dL Est GFR (CKD-EPI)NonAf 54.9 L (60.0-200.0) BUN/Creatinine Ratio 20.85 H (12.00-20.00) Ratio Albumin/Globulin Ratio 1.29 L (1.60-3.17) g/dL Microbiology - Last 24 Hours (Table) 10/22/21 Unknown Urine Culture - Final Urine,Voided
--- NOTE | 2021-10-24 16:23 | P.PN ---
Subjective Progress Note Date: 10/23/21 Rayray Stewart, is a 71-year-old male well-known to my practice who presented to [facility] emergency room after he received a call from [facility] advising him to go to emergency room due to firing of his AICD twice. He was evaluated in the emergency room vital examination on presentation revealed a temperature of 97.6 pulse 68 respiration 18 blood pressure 137/79 pulse ox 96% on room air Laboratory data revealed a white blood count of 6.6 hemoglobin 12.2 platelet count 313 sodium 134 potassium 3.4 chloride 101 CO2 27 BUN 13 creatinine 0.9 Testing in the emergency room revealed chest x-ray done in the emergency room revealed mild cardiomegaly with interstitial prominence and patchy by basilar area of atelectasis versus infiltrates, EKG done in the emergency room revealed sinus rhythm with frequent ventricular premature complexes left axis deviation and moderate intraventricular conduction delay prolonged QT interval and nonspecific T-wave abnormality. Patient was admitted to medical floor for further evaluation and treatment, cardiology consultation was requested. Patient was in the emergency room 2 days prior to this presentation on 10/14/2021 at that time he presented with a complaint of urinary retention, and hypokalemia he had the Marquis catheter reinserted and he was discharged home to follow-up with urology as outpatient. Patient was also seen in the emergency room 1 day prior to that on 10/13/2021 at that time he was requesting to have his Marquis catheter removed due to pain he had evidence of urinary tract infection and was started on oral Ceftin and discharged home, his Marquis catheter was removed and he was instructed to return in 24 hours if he was unable to urinate which he did. Patient was also seen in the emergency room on 10/08/2021 at that time he presented with abdominal pain and had evidence of urinary retention and had a Marquis catheter placed. On 10/17/2021 patient was seen and examined on the telemetry floor he is alert and oriented 3 in no apparent distress he is no fever or chills no headache or dizziness no chest pain no shortness of breath no cough no nausea or vomiting no abdominal pain no diarrhea and no urinary symptoms. Cardiology are planning to proceed with cardiac catheterization, medication reviewed continue with current management, at this time will hold on plans for computed tomography scan of the abdomen and pelvis will continue with IV antibiotics On 10/18/2021 patient was seen and examined on the telemetry floor he is alert and oriented 3 in no apparent distress there is no fever or chills no headache or dizziness no chest pain no shortness of breath no cough no nausea or vomiting no abdominal pain no diarrhea patient is still complaining of discomfort around his Marquis catheter. Plan per cardiology is to proceed with cardiac catheterization today. On 10/19/2021 patient was seen and examined on the telemetry floor he is alert and oriented in no apparent distress he denies any chest pain or shortness of breath there is no fever or chills no headache or dizziness no cough no nausea or vomiting no abdominal pain no diarrhea and no urinary symptoms. Patient underwent cardiac catheterization yesterday with PTCA and stenting of the proximal RCA and PTCA of mid stent restenosis lesion. At this time patient is resting comfortably, he lives alone at home, will ask physical therapy and occupational therapy to assess if he needs to go to rehab prior to going home. Patient was seen by Dr. Fuad callahan on 10/20/2021 10/21/2021 and 10/22/2021 On 10/23/2021 patient was seen and examined on the medical floor he is alert and oriented 3 in no apparent distress he is complaining of generalized weakness otherwise he denies any complaints there is no fever or chills no headache or d izziness no chest pain no shortness of breath no cough no nausea or vomiting no abdominal pain no diarrhea no blood in the stools no burning with urination no frequency or urgency and no hematuria Objective - Vital Signs Vital signs: Vital Signs Temp 97.4 F L 10/23/21 13:51 Pulse 60 10/23/21 13:51 Resp 23 10/23/21 13:51 BP 94/63 10/23/21 13:51 Pulse Ox 97 10/23/21 13:51 FiO2 Intake & Output 10/22/21 10/23/21 10/23/21 18:59 06:59 18:59 Intake Total 800 Output Total 600 3800 Balance -600 -3000 Weight 105.233 kg Intake: Oral 800 Output: Urine 600 3800 Other: Voiding Method Indwelling Catheter Indwelling Catheter - Exam In general patient is alert and oriented x 3 in no distress HEENT head normocephalic and atraumatic Neck is supple no JVD no goiter no lymphadenopathy no carotid bruit Chest examination is clear to auscultation no crackles no wheezing Cardiac exam reveals regular heart sounds S1 and S2 no gallops no murmurs Abdomen is soft nontender no organomegaly with normal bowel sounds, Marquis catheter in place Extremity exam reveals no edema no cyanosis or clubbing Neurological examination reveals no gross focal deficits - Labs CBC & Chem 7: 10/24/21 05:54 10/24/21 05:54 Labs: Abnormal Lab Results - Last 24 Hours (Table) 10/22/21 10/23/21 10/23/21 Range/Units Unknown 05:46 05:46 MCH 26.7 L (27.0-32.0) pg MCHC 31.4 L (32.0-37.0) g/dL RDW 15.2 H (11.5-14.5) % Eosinophils # 0.57 H (0.04-0.35) X 10*3/uL Sodium 132 L (135-145) mmol/L BUN 31.8 H (9.0-27.0) mg/dL Est GFR (CKD-EPI)AfAm 53.5 L (60.0-200.0) Est GFR (CKD-EPI)NonAf 46.2 L (60.0-200.0) BUN/Creatinine Ratio 21.20 H (12.00-20.00) Ratio Total Bilirubin 0.20 L (0.30-1.20) mg/dL Conjugated Bilirubin <0.20 L (0.20-0.40) mg/dL Albumin/Globulin Ratio 1.26 L (1.60-3.17) g/dL Urine Protein 1+ H (Negative) Urine Blood Large H (Negative) Ur Leukocyte Esterase Moderate H (Negative) Urine RBC >182 H (0-5) /hpf Urine WBC 60 H (0-5) /hpf Urine Bacteria Rare H (None) /hpf Hyaline Casts 33 H (0-2) /lpf Urine Mucus Occasional H (None) /hpf Microbiology - Last 24 Hours (Table) 10/22/21 Unknown Urine Culture - Final Urine,Voided Assessment and Plan Plan: Two Episodes of AICD firing at at home patient was instructed by cardiology to come to emergency room. Evidence of hypokalemia and hypomagnesemia corrected in the emergency room Evidence of urinary tract infection maintained on Ceftin, will hold Ceftin Will obtain urine culture and use IV Rocephin while in hospital Underlying history of atrial fibrillation maintained on eliquis Underlying history of hypertension Underlying history of COPD Underlying history of diverticulosis with episodes of acute diverticulitis in May 2021 Underlying history of congestive heart failure, with cardiomyopathy ejection fraction on echocardiogram in May 2020 was 30-35% Urinary retention patient has Marquis catheter in he is maintained on Flomax, will consult urology for follow-up Abdominal pain Will obtain computed tomography scan of the abdomen and pelvis, patient has a history of diverticulitis At this time patient is admitted to telemetry floor Home medications reviewed and reordered He was started on IV antibiotic Rocephin He was started on IV amiodarone in the emergency room Cardiology consultation and urology consultation requested Will follow closely
--- NOTE | 2021-10-24 16:25 | P.PN ---
Subjective Progress Note Date: 10/24/21 Rayray Stewart, is a 71-year-old male well-known to my practice who presented to [facility] emergency room after he received a call from [facility] advising him to go to emergency room due to firing of his AICD twice. He was evaluated in the emergency room vital examination on presentation revealed a temperature of 97.6 pulse 68 respiration 18 blood pressure 137/79 pulse ox 96% on room air Laboratory data revealed a white blood count of 6.6 hemoglobin 12.2 platelet count 313 sodium 134 potassium 3.4 chloride 101 CO2 27 BUN 13 creatinine 0.9 Testing in the emergency room revealed chest x-ray done in the emergency room revealed mild cardiomegaly with interstitial prominence and patchy by basilar area of atelectasis versus infiltrates, EKG done in the emergency room revealed sinus rhythm with frequent ventricular premature complexes left axis deviation and moderate intraventricular conduction delay prolonged QT interval and nonspecific T-wave abnormality. Patient was admitted to medical floor for further evaluation and treatment, cardiology consultation was requested. Patient was in the emergency room 2 days prior to this presentation on 10/14/2021 at that time he presented with a complaint of urinary retention, and hypokalemia he had the Marquis catheter reinserted and he was discharged home to follow-up with urology as outpatient. Patient was also seen in the emergency room 1 day prior to that on 10/13/2021 at that time he was requesting to have his Marquis catheter removed due to pain he had evidence of urinary tract infection and was started on oral Ceftin and discharged home, his Marquis catheter was removed and he was instructed to return in 24 hours if he was unable to urinate which he did. Patient was also seen in the emergency room on 10/08/2021 at that time he presented with abdominal pain and had evidence of urinary retention and had a Marquis catheter placed. On 10/17/2021 patient was seen and examined on the telemetry floor he is alert and oriented 3 in no apparent distress he is no fever or chills no headache or dizziness no chest pain no shortness of breath no cough no nausea or vomiting no abdominal pain no diarrhea and no urinary symptoms. Cardiology are planning to proceed with cardiac catheterization, medication reviewed continue with current management, at this time will hold on plans for computed tomography scan of the abdomen and pelvis will continue with IV antibiotics On 10/18/2021 patient was seen and examined on the telemetry floor he is alert and oriented 3 in no apparent distress there is no fever or chills no headache or dizziness no chest pain no shortness of breath no cough no nausea or vomiting no abdominal pain no diarrhea patient is still complaining of discomfort around his Marquis catheter. Plan per cardiology is to proceed with cardiac catheterization today. On 10/19/2021 patient was seen and examined on the telemetry floor he is alert and oriented in no apparent distress he denies any chest pain or shortness of breath there is no fever or chills no headache or dizziness no cough no nausea or vomiting no abdominal pain no diarrhea and no urinary symptoms. Patient underwent cardiac catheterization yesterday with PTCA and stenting of the proximal RCA and PTCA of mid stent restenosis lesion. At this time patient is resting comfortably, he lives alone at home, will ask physical therapy and occupational therapy to assess if he needs to go to rehab prior to going home. Patient was seen by Dr. Fuad callahan on 10/20/2021 10/21/2021 and 10/22/2021 On 10/23/2021 patient was seen and examined on the medical floor he is alert and oriented 3 in no apparent distress he is complaining of generalized weakness otherwise he denies any complaints there is no fever or chills no headache or di zziness no chest pain no shortness of breath no cough no nausea or vomiting no abdominal pain no diarrhea no blood in the stools no burning with urination no frequency or urgency and no hematuria On 10/24/2021 patient was seen and examined on the medical floor he is alert and oriented 3 in no apparent distress there is no fever or chills no headache or dizziness no chest pain no shortness of breath no cough no nausea or vomiting no abdominal pain no diarrhea no blood in the stools no burning with urination no frequency or urgency and no hematuria he is still maintained on IV antibiotic cefepime, nephrology following, will recheck labs and follow in a.m. Objective - Vital Signs Vital signs: Vital Signs Temp 98.3 F 10/24/21 13:37 Pulse 58 L 10/24/21 13:37 Resp 19 10/24/21 13:37 BP 105/75 10/24/21 13:37 Pulse Ox 99 10/24/21 13:37 FiO2 Intake & Output 10/23/21 10/24/21 10/24/21 18:59 06:59 18:59 Intake Total 800 Output Total 3800 1100 Balance -3000 -1100 Weight 105.233 kg Intake: Oral 800 Output: Urine 3800 1100 Other: Voiding Method Indwelling Catheter - Exam In general patient is alert and oriented x 3 in no distress HEENT head normocephalic and atraumatic Neck is supple no JVD no goiter no lymphadenopathy no carotid bruit Chest examination is clear to auscultation no crackles no wheezing Cardiac exam reveals regular heart sounds S1 and S2 no gallops no murmurs Abdomen is soft nontender no organomegaly with normal bowel sounds, Marquis catheter in place Extremity exam reveals no edema no cyanosis or clubbing Neurological examination reveals no gross focal deficits - Labs CBC & Chem 7: 10/24/21 05:54 10/24/21 05:54 Labs: Abnormal Lab Results - Last 24 Hours (Table) 10/24/21 10/24/21 Range/Units 05:54 05:54 RDW 15.0 H (11.5-14.5) % Eosinophils # 0.52 H (0.04-0.35) X 10*3/uL Sodium 132 L (135-145) mmol/L BUN 27.1 H (9.0-27.0) mg/dL Est GFR (CKD-EPI)NonAf 54.9 L (60.0-200.0) BUN/Creatinine Ratio 20.85 H (12.00-20.00) Ratio Albumin/Globulin Ratio 1.29 L (1.60-3.17) g/dL Microbiology - Last 24 Hours (Table) 10/22/21 Unknown Urine Culture - Final Urine,Voided Assessment and Plan Plan: Two Episodes of AICD firing at at home patient was instructed by cardiology to come to emergency room. Evidence of hypokalemia and hypomagnesemia corrected in the emergency room Evidence of urinary tract infection maintained on Ceftin, will hold Ceftin Will obtain urine culture and use IV Rocephin while in hospital Underlying history of atrial fibrillation maintained on eliquis Underlying history of hypertension Underlying history of COPD Underlying history of diverticulosis with episodes of acute diverticulitis in May 2021 Underlying history of congestive heart failure, with cardiomyopathy ejection fraction on echocardiogram in May 2020 was 30-35% Urinary retention patient has Marquis catheter in he is maintained on Flomax, will consult urology for follow-up Abdominal pain Will obtain computed tomography scan of the abdomen and pelvis, patient has a history of diverticulitis At this time patient is admitted to telemetry floor Home medications reviewed and reordered He was started on IV antibiotic Rocephin He was started on IV amiodarone in the emergency room Cardiology consultation and urology consultation requested Will follow closely
[2021-10-24] MEDS: SODIUM CHLORIDE 0.9% 1,000 ML IV SCH (16:55)
[2021-10-24] MEDS: MONTELUKAST 10 MG TAB PO SCH (21:12)
[2021-10-24] MEDS: LORATADINE 10 MG TAB PO SCH (21:13)
[2021-10-24] MEDS: MIRTAZAPINE 45 MG TABLET PO SCH (21:13)
[2021-10-24] MEDS: DOXEPIN 25 MG CAP PO SCH (21:13)
[2021-10-25] MEDS: HYDROcodone/APAP 5-325MG 1 EACH TAB PO PRN ×2 (01:02→19:45)
[2021-10-25] MEDS: CEFEPIME 1 GM in SODIUM CHLORIDE 0.9% 50 ML IVPB SCH ×2 (02:32→13:57)
[2021-10-25 06:58] LABS: ALT 38 U/L (4-49); AST 37 U/L (17-59); African American GFR (CKD) 70 (>60 ml/min/1.73 sqM); Albumin/Globulin Ratio 1.3; Alkaline Phosphatase 106 U/L (38-126); Anion Gap 7 mmol/L; Blood Urea Nitrogen 27 mg/dL (9-20); Calcium 9.1 mg/dL (8.4-10.2); Carbon Dioxide 23 mmol/L (22-30); Chloride 99 mmol/L (98-107); Globulin 3.2 g/dL; Glucose 96 mg/dL (74-99); Non-African American GFR(CKD) 61 (>60 ml/min/1.73 sqM); Potassium 5.1 mmol/L (3.5-5.1); Sodium 129 mmol/L (137-145); Total Bilirubin 0.5 mg/dL (0.2-1.3); Total Protein 7.2 g/dL (6.3-8.2)
[2021-10-25] MEDS: SYMBICORT 160-4.5 MCG INHALER INHALATION SCH ×2 (08:01→20:12)
--- NOTE | 2021-10-25 09:01 | P.PN ---
Subjective Patient is seen in follow-up for acute kidney injury. Renal function better today. Nonoliguric. Hemodynamically stable. No vomiting or diarrhea. Sodium 129 today. Vital signs are stable. General: Awake. No acute distress. HEENT: Head exam is unremarkable. LUNGS: Breath sounds decreased. HEART: Rate and Rhythm are regular. ABDOMEN: Soft, no distention. EXTREMITITES: No edema. Objective - Vital Signs Vital signs: Vital Signs Temp 96.3 F L 10/25/21 08:00 Pulse 60 10/25/21 08:00 Resp 17 10/25/21 02:00 BP 162/56 10/25/21 08:00 Pulse Ox 99 10/25/21 08:00 FiO2 Intake & Output 10/24/21 10/25/21 10/25/21 18:59 06:59 18:59 Intake Total 656 300 Output Total 900 800 Balance -244 -500 Intake: Oral 656 300 Output: Urine 900 800 Other: Voiding Method Indwelling Catheter - Labs CBC & Chem 7: 10/24/21 05:54 10/25/21 06:12 Labs: Abnormal Lab Results - Last 24 Hours (Table) 10/24/21 10/25/21 Range/Units 05:54 06:12 Sodium 132 L 129 L (135-145) mmol/L BUN 27.1 H 27 H (9.0-27.0) mg/dL Est GFR (CKD-EPI)NonAf 54.9 L (60.0-200.0) BUN/Creatinine Ratio 20.85 H (12.00-20.00) Ratio Albumin/Globulin Ratio 1.29 L (1.60-3.17) g/dL Assessment and Plan Plan: Assessment: 1. Acute kidney injury secondary to ATN secondary to contrast-induced acute kidney injury. Baseline creatinine near 1 and peaked at 1.5 this admission - 1.2 today. No hydronephrosis noted on CAT scan. 2. Urinary retention. Being followed by urology. Has a Marquis catheter. On Flomax as well. 3. Ischemic cardiomyopathy with AICD. Ejection fraction is 20% with moderate pulmonary hypertension. 4. Status post stenting of the proximal RCA and mid stent restenotic lesion 10/18/2021. 5. Hyponatremia secondary to acute kidney injury. Plan: Maintain 1500 mL fluid restriction. Hold Lasix for now. Encourage oral intake. Low-salt diet. Avoid nephrotoxins. Check serum and urine osmolality and urine sodium level.
[2021-10-25] MEDS: TAMSULOSIN 0.4 MG CAP.ER.24H PO SCH ×2 (09:02→19:46)
[2021-10-25] MEDS: APIXABAN 5 MG TAB PO SCH ×2 (09:02→19:46)
[2021-10-25] MEDS: PANTOPRAZOLE 40 MG TABLET PO SCH (09:02)
[2021-10-25] MEDS: ATORVASTATIN 80 MG TAB PO SCH (09:02)
[2021-10-25] MEDS: ASPIRIN 81 MG PO SCH (09:02)
[2021-10-25] MEDS: AMIODARONE 200 MG TAB PO SCH (09:02)
[2021-10-25] MEDS: SPIRONOLACTONE 25 MG TAB PO SCH (09:02)
[2021-10-25] MEDS: CLOPIDOGREL 75 MG TAB PO SCH (09:03)
[2021-10-25] MEDS: QUEtiapine 200 MG TAB PO SCH ×2 (09:03→22:10)
[2021-10-25] MEDS: carvediloL 12.5 MG TAB PO SCH ×2 (09:03→17:29)
[2021-10-25] MEDS: CITALOPRAM HYDROBROMIDE 10 MG TAB PO SCH (09:03)
[2021-10-25 09:12] LABS: Basophils # (A) 0.06 X 10*3/uL (0.00-0.10); Basophils % (A) 0.8 %; Eosinophils # (A) 0.51 X 10*3/uL (0.04-0.35); Eosinophils % (A) 6.9 %; HCT 43.2 % (39.6-50.0); HGB 13.8 g/dL (13.0-17.0); Immature Grans, Automated 0.3 %; Lymphocytes # (A) 2.71 X 10*3/uL (0.90-5.00); Lymphocytes % (A) 36.6 %; MCH 26.7 pg (27.0-32.0); MCHC 31.9 g/dL (32.0-37.0); MCV 83.7 fL (80.0-97.0); Mean Platelet Volume 10.2 fL (9.5-12.2); Monocytes # (A) 0.64 X 10*3/uL (0.20-1.00); Monocytes % (A) 8.6 %; NRBC Per 100 WBC 0 /100 WBCS (0.0-0.0); Neutrophils # (A) 3.47 X 10*3/uL (1.80-7.70); Neutrophils % (A) 46.8 %; Platelet Count 434 X 10*3/uL (140-440); RBC 5.16 X 10*6/uL (4.40-5.60); WBC 7.41 X 10*3/uL (4.50-10.00)
--- NOTE | 2021-10-25 10:46 | P.PN ---
Subjective Progress Note Date: 10/25/21 CHIEF COMPLAINT: Abdominal pain HISTORY OF PRESENT ILLNESS: Patient is lying in bed comfortably. Patient does report discomfort at Marquis catheter site. Denies abdominal pain. 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 Denies any nausea or vomiting. Tolerating regular diet. He has been having bowel movements. Afebrile. WBC 7.41H to be 13.8 platelets 434 sodium 129 potassium 5.1 creatinine 1.2 Patient seen and examined with Dr. martin PHYSICAL EXAM: VITAL SIGNS: Reviewed. GENERAL: Well-developed in no acute distress. HEENT: No sclera icterus. Extraocular movements grossly intact. Moist buccal mucosa. Head is atraumatic, normocephalic. ABDOMEN: Soft. Nondistended. Nontender. NEUROLOGIC: Alert and oriented. Cranial nerves II through XII grossly intact. ASSESSMENT: 1. Abdominal pain 2. Urinary retention 3. UTI PLAN: -No surgical intervention planned -Continue supportive care Physician Nascar Driver note has been reviewed by physician. Signing provider agrees with the documented findings, assessment, and plan of care. Objective - Vital Signs Vital signs: Vital Signs Temp 96.3 F L 10/25/21 08:00 Pulse 60 10/25/21 08:00 Resp 17 10/25/21 02:00 BP 162/56 10/25/21 08:00 Pulse Ox 99 10/25/21 08:00 FiO2 Intake & Output 10/24/21 10/25/21 10/25/21 18:59 06:59 18:59 Intake Total 656 300 Output Total 900 800 500 Balance -244 -500 -500 Intake: Oral 656 300 Output: Urine 900 800 500 Other: Voiding Method Indwelling Catheter - Labs CBC & Chem 7: 10/25/21 06:12 10/25/21 06:12 Labs: Abnormal Lab Results - Last 24 Hours (Table) 10/25/21 10/25/21 Range/Units 06:12 06:12 MCH 26.7 L (27.0-32.0) pg MCHC 31.9 L (32.0-37.0) g/dL RDW 15.0 H (11.5-14.5) % Eosinophils # 0.51 H (0.04-0.35) X 10*3/uL Sodium 129 L (137-145) mmol/L BUN 27 H (9-20) mg/dL
[2021-10-25] MEDS: SODIUM CHLORIDE 0.9% 1,000 ML IV SCH (13:59)
--- NOTE | 2021-10-25 18:05 | P.PN ---
Subjective Progress Note Date: 10/25/21 Rayray Stewart, is a 71-year-old male well-known to my practice who presented to [facility] emergency room after he received a call from [facility] advising him to go to emergency room due to firing of his AICD twice. He was evaluated in the emergency room vital examination on presentation revealed a temperature of 97.6 pulse 68 respiration 18 blood pressure 137/79 pulse ox 96% on room air Laboratory data revealed a white blood count of 6.6 hemoglobin 12.2 platelet count 313 sodium 134 potassium 3.4 chloride 101 CO2 27 BUN 13 creatinine 0.9 Testing in the emergency room revealed chest x-ray done in the emergency room revealed mild cardiomegaly with interstitial prominence and patchy by basilar area of atelectasis versus infiltrates, EKG done in the emergency room revealed sinus rhythm with frequent ventricular premature complexes left axis deviation and moderate intraventricular conduction delay prolonged QT interval and nonspecific T-wave abnormality. Patient was admitted to medical floor for further evaluation and treatment, cardiology consultation was requested. Patient was in the emergency room 2 days prior to this presentation on 10/14/2021 at that time he presented with a complaint of urinary retention, and hypokalemia he had the Marquis catheter reinserted and he was discharged home to follow-up with urology as outpatient. Patient was also seen in the emergency room 1 day prior to that on 10/13/2021 at that time he was requesting to have his Marquis catheter removed due to pain he had evidence of urinary tract infection and was started on oral Ceftin and discharged home, his Marquis catheter was removed and he was instructed to return in 24 hours if he was unable to urinate which he did. Patient was also seen in the emergency room on 10/08/2021 at that time he presented with abdominal pain and had evidence of urinary retention and had a Marquis catheter placed. On 10/17/2021 patient was seen and examined on the telemetry floor he is alert and oriented 3 in no apparent distress he is no fever or chills no headache or dizziness no chest pain no shortness of breath no cough no nausea or vomiting no abdominal pain no diarrhea and no urinary symptoms. Cardiology are planning to proceed with cardiac catheterization, medication reviewed continue with current management, at this time will hold on plans for computed tomography scan of the abdomen and pelvis will continue with IV antibiotics On 10/18/2021 patient was seen and examined on the telemetry floor he is alert and oriented 3 in no apparent distress there is no fever or chills no headache or dizziness no chest pain no shortness of breath no cough no nausea or vomiting no abdominal pain no diarrhea patient is still complaining of discomfort around his Marquis catheter. Plan per cardiology is to proceed with cardiac catheterization today. On 10/19/2021 patient was seen and examined on the telemetry floor he is alert and oriented in no apparent distress he denies any chest pain or shortness of breath there is no fever or chills no headache or dizziness no cough no nausea or vomiting no abdominal pain no diarrhea and no urinary symptoms. Patient underwent cardiac catheterization yesterday with PTCA and stenting of the proximal RCA and PTCA of mid stent restenosis lesion. At this time patient is resting comfortably, he lives alone at home, will ask physical therapy and occupational therapy to assess if he needs to go to rehab prior to going home. Patient was seen by Dr. Fuad callahan on 10/20/2021 10/21/2021 and 10/22/2021 On 10/23/2021 patient was seen and examined on the medical floor he is alert and oriented 3 in no apparent distress he is complaining of generalized weakness otherwise he denies any complaints there is no fever or chills no headache or di zziness no chest pain no shortness of breath no cough no nausea or vomiting no abdominal pain no diarrhea no blood in the stools no burning with urination no frequency or urgency and no hematuria On 10/24/2021 patient was seen and examined on the medical floor he is alert and oriented 3 in no apparent distress there is no fever or chills no headache or dizziness no chest pain no shortness of breath no cough no nausea or vomiting no abdominal pain no diarrhea no blood in the stools no burning with urination no frequency or urgency and no hematuria he is still maintained on IV antibiotic cefepime, nephrology following, will recheck labs and follow in a.m. On 10/25/2021 patient was seen and examined on the medical floor he is alert and oriented in no distress, patient is complaining of discomfort with the Marquis catheter otherwise he denies any complaints there is no fever or chills no he adache or dizziness no chest pain no shortness of breath no cough no nausea or vomiting no abdominal pain no diarrhea and no urinary symptoms Objective - Vital Signs Vital signs: Vital Signs Temp 97.5 F L 10/25/21 14:00 Pulse 46 L 10/25/21 14:00 Resp 17 10/25/21 02:00 BP 109/69 10/25/21 14:00 Pulse Ox 98 10/25/21 14:00 FiO2 Intake & Output 10/24/21 10/25/21 10/25/21 18:59 06:59 18:59 Intake Total 656 300 50 Output Total 900 800 500 Balance -244 -500 -450 Intake: Intake, IV Titration 50 Amount Cefepime 1 gm In Sodium 50 Chloride 0.9% 50 ml @ 12. 5 mls/hr IVPB Q12H [facility] Rx #:[id number] Oral 656 300 Output: Urine 900 800 500 Other: Voiding Method Indwelling Catheter Indwelling Catheter - Exam In general patient is alert and oriented x 3 in no distress HEENT head normocephalic and atraumatic Neck is supple no JVD no goiter no lymphadenopathy no carotid bruit Chest examination is clear to auscultation no crackles no wheezing Cardiac exam reveals regular heart sounds S1 and S2 no gallops no murmurs Abdomen is soft nontender no organomegaly with normal bowel sounds, Marquis c atheter in place Extremity exam reveals no edema no cyanosis or clubbing Neurological examination reveals no gross focal deficits - Labs CBC & Chem 7: 10/25/21 06:12 10/25/21 06:12 Labs: Abnormal Lab Results - Last 24 Hours (Table) 10/25/21 10/25/21 Range/Units 06:12 06:12 MCH 26.7 L (27.0-32.0) pg MCHC 31.9 L (32.0-37.0) g/dL RDW 15.0 H (11.5-14.5) % Eosinophils # 0.51 H (0.04-0.35) X 10*3/uL Sodium 129 L (137-145) mmol/L BUN 27 H (9-20) mg/dL Assessment and Plan Plan: Two Episodes of AICD firing at at home patient was instructed by cardiology to come to emergency room. Evidence of hypokalemia and hypomagnesemia corrected in the emergency room Evidence of urinary tract infection maintained on Ceftin, will hold Ceftin Will obtain urine culture and use IV Rocephin while in hospital Underlying history of atrial fibrillation maintained on eliquis Underlying history of hypertension Underlying history of COPD Underlying history of diverticulosis with episodes of acute diverticulitis in May 2021 Underlying history of congestive heart failure, with cardiomyopathy ejection fraction on echocardiogram in May 2020 was 30-35% Urinary retention patient has Marquis catheter in he is maintained on Flomax, will consult urology for follow-up Abdominal pain Will obtain computed tomography scan of the abdomen and pelvis, patient has a history of diverticulitis At this time patient is admitted to telemetry floor Home medications reviewed and reordered He was started on IV antibiotic Rocephin He was started on IV amiodarone in the emergency room Cardiology consultation and urology consultation requested Will follow closely
[2021-10-25] MEDS: LORATADINE 10 MG TAB PO SCH (19:47)
[2021-10-25] MEDS: MIRTAZAPINE 45 MG TABLET PO SCH (22:10)
[2021-10-25] MEDS: DOXEPIN 25 MG CAP PO SCH (22:10)
[2021-10-25] MEDS: MONTELUKAST 10 MG TAB PO SCH (22:13)
[2021-10-26] MEDS: CEFEPIME 1 GM in SODIUM CHLORIDE 0.9% 50 ML IVPB SCH (02:17)
[2021-10-26] MEDS: SYMBICORT 160-4.5 MCG INHALER INHALATION SCH ×2 (08:13→21:40)
[2021-10-26] MEDS: PANTOPRAZOLE 40 MG TABLET PO SCH (08:38)
[2021-10-26] MEDS: carvediloL 12.5 MG TAB PO SCH ×2 (08:38→17:27)
--- NOTE | 2021-10-26 09:32 | P.PN ---
Subjective Patient is seen in follow-up for acute kidney injury. Creatinine 1.2 yesterday. Morning labs pending. Nonoliguric. Hemodynamically stable. No vomiting or diarrhea. No active complaints. Vital signs are stable. General: Awake. No acute distress. HEENT: Head exam is unremarkable. LUNGS: Breath sounds decreased. HEART: Rate and Rhythm are regular. ABDOMEN: Soft, no distention. EXTREMITITES: No edema. Objective - Vital Signs Vital signs: Vital Signs Temp 98.4 F 10/26/21 07:50 Pulse 66 10/26/21 07:50 Resp 16 10/26/21 07:50 BP 145/85 10/26/21 07:50 Pulse Ox 96 10/26/21 07:50 FiO2 Intake & Output 10/25/21 10/26/21 10/26/21 18:59 06:59 18:59 Intake Total 50 Output Total 500 1950 Balance -450 -1950 Intake: Intake, IV Titration 50 Amount Cefepime 1 gm In Sodium 50 Chloride 0.9% 50 ml @ 12. 5 mls/hr IVPB Q12H [facility] Rx #:[id number] Output: Urine 500 1950 Other: Voiding Method Indwelling Catheter Indwelling Catheter - Labs CBC & Chem 7: 10/25/21 06:12 10/25/21 06:12 Labs: Abnormal Lab Results - Last 24 Hours (Table) 10/25/21 Range/Units 10:00 Ur Random Sodium 27 L (40-220) mmol/L Assessment and Plan Plan: Assessment: 1. Acute kidney injury secondary to ATN secondary to contrast-induced acute kidney injury. Baseline creatinine near 1 and peaked at 1.5 this admission - 1.2 yesterday. No hydronephrosis noted on CAT scan. 2. Urinary retention. Being followed by urology. Has a Marquis catheter. On Flomax as well. 3. Ischemic cardiomyopathy with AICD. Ejection fraction is 20% with moderate pulmonary hypertension. 4. Status post stenting of the proximal RCA and mid stent restenotic lesion 10/18/2021. 5. Hyponatremia secondary to acute kidney injury. Urine sodium 27 and urine osmolality 287. Plan: Maintain 1500 mL fluid restriction. Continue to hold Lasix for now. Encourage oral intake. Low-salt diet. Avoid nephrotoxins. Follow-up morning labs.
--- NOTE | 2021-10-26 09:55 | P.PN ---
Subjective Progress Note Date: 10/26/21 CHIEF COMPLAINT: Abdominal pain HISTORY OF PRESENT ILLNESS: Patient is lying in bed comfortably. Patient denies any abdominal pain. Denies any nausea or vomiting. Tolerating diet. He is having regular bowel movements. Hematuria improving urine output is pinkish in color. Patient does report still having some irritation at the catheter site. Afebrile. Nephrology following regards to patient's hyponatremia Patient seen and examined with Dr. martin PHYSICAL EXAM: VITAL SIGNS: Reviewed. GENERAL: Well-developed in no acute distress. HEENT: No sclera icterus. Extraocular movements grossly intact. Moist buccal mucosa. Head is atraumatic, normocephalic. ABDOMEN: Soft. Nondistended. Nontender. NEUROLOGIC: Alert and oriented. Cranial nerves II through XII grossly intact. ASSESSMENT: 1. Abdominal pain 2. Urinary retention 3. UTI PLAN: -No surgical intervention planned -Continue supportive care Physician Grocery Specialist note has been reviewed by physician. Signing provider agrees with the documented findings, assessment, and plan of care. Objective - Vital Signs Vital signs: Vital Signs Temp 98.4 F 10/26/21 07:50 Pulse 66 10/26/21 07:50 Resp 16 10/26/21 07:50 BP 145/85 10/26/21 07:50 Pulse Ox 96 10/26/21 07:50 FiO2 Intake & Output 10/25/21 10/26/21 10/26/21 18:59 06:59 18:59 Intake Total 50 Output Total 500 1950 Balance -450 -1950 Intake: Intake, IV Titration 50 Amount Cefepime 1 gm In Sodium 50 Chloride 0.9% 50 ml @ 12. 5 mls/hr IVPB Q12H [facility] Rx #:[id number] Output: Urine 500 1950 Other: Voiding Method Indwelling Catheter Indwelling Catheter - Labs CBC & Chem 7: 10/25/21 06:12 10/25/21 06:12 Labs: Abnormal Lab Results - Last 24 Hours (Table) 10/25/21 Range/Units 10:00 Ur Random Sodium 27 L (40-220) mmol/L
[2021-10-26 10:48] LABS: Basophils # (A) 0.05 X 10*3/uL (0.00-0.10); Basophils % (A) 0.6 %; Eosinophils # (A) 0.45 X 10*3/uL (0.04-0.35); Eosinophils % (A) 5.7 %; HCT 46.8 % (39.6-50.0); HGB 14.5 g/dL (13.0-17.0); Immature Grans, Automated 0.3 %; Lymphocytes # (A) 2.47 X 10*3/uL (0.90-5.00); Lymphocytes % (A) 31.1 %; MCH 26.5 pg (27.0-32.0); MCV 85.4 fL (80.0-97.0); Mean Platelet Volume 10.1 fL (9.5-12.2); Monocytes % (A) 7.5 %; NRBC Per 100 WBC 0 /100 WBCS (0.0-0.0); Neutrophils # (A) 4.36 X 10*3/uL (1.80-7.70); Neutrophils % (A) 54.8 %; Platelet Count 446 X 10*3/uL (140-440); RBC 5.48 X 10*6/uL (4.40-5.60); RDW 14.8 % (11.5-14.5); WBC 7.95 X 10*3/uL (4.50-10.00)
[2021-10-26 11:05] LABS: ALT 46 U/L (10-49); AST 30 U/L (14-35); African American GFR (CKD) 70.1 (60.0-200.0); Albumin 4.1 g/dL (3.8-4.9); Albumin/Globulin Ratio 1.37 (1.60-3.17); Alkaline Phosphatase 103 U/L (41-126); BUN/Creat Ratio 18.92 Ratio (12.00-20.00); Blood Urea Nitrogen 22.7 mg/dL (9.0-27.0); Calcium 9.5 mg/dL (8.7-10.3); Carbon Dioxide 21.2 mmol/L (20.0-27.5); Chloride 99 mmol/L (96-109); Glucose 130 mg/dL (70-110); Non-African American GFR(CKD) 60.5 (60.0-200.0); Potassium 4.6 mmol/L (3.5-5.5); Sodium 132 mmol/L (135-145); Total Protein 7.1 g/dL (6.2-8.2)
[2021-10-26] MEDS: TAMSULOSIN 0.4 MG CAP.ER.24H PO SCH ×2 (11:36→22:40)
[2021-10-26] MEDS: APIXABAN 5 MG TAB PO SCH ×2 (11:36→22:40)
[2021-10-26] MEDS: QUEtiapine 200 MG TAB PO SCH ×2 (11:36→22:42)
[2021-10-26] MEDS: SPIRONOLACTONE 25 MG TAB PO SCH (11:37)
[2021-10-26] MEDS: ASPIRIN 81 MG PO SCH (11:37)
[2021-10-26] MEDS: AMIODARONE 200 MG TAB PO SCH ×2 (11:38→22:40)
[2021-10-26] MEDS: CITALOPRAM HYDROBROMIDE 10 MG TAB PO SCH (11:38)
[2021-10-26] MEDS: CLOPIDOGREL 75 MG TAB PO SCH (11:38)
[2021-10-26] MEDS: ATORVASTATIN 80 MG TAB PO SCH (11:38)
[2021-10-26] MEDS: SODIUM CHLORIDE 0.9% 1,000 ML IV SCH (16:57)
--- NOTE | 2021-10-26 18:26 | P.PN ---
Subjective Progress Note Date: 10/26/21 Rayray Stewart, is a 71-year-old male well-known to my practice who presented to [facility] emergency room after he received a call from [facility] advising him to go to emergency room due to firing of his AICD twice. He was evaluated in the emergency room vital examination on presentation revealed a temperature of 97.6 pulse 68 respiration 18 blood pressure 137/79 pulse ox 96% on room air Laboratory data revealed a white blood count of 6.6 hemoglobin 12.2 platelet count 313 sodium 134 potassium 3.4 chloride 101 CO2 27 BUN 13 creatinine 0.9 Testing in the emergency room revealed chest x-ray done in the emergency room revealed mild cardiomegaly with interstitial prominence and patchy by basilar area of atelectasis versus infiltrates, EKG done in the emergency room revealed sinus rhythm with frequent ventricular premature complexes left axis deviation and moderate intraventricular conduction delay prolonged QT interval and nonspecific T-wave abnormality. Patient was admitted to medical floor for further evaluation and treatment, cardiology consultation was requested. Patient was in the emergency room 2 days prior to this presentation on 10/14/2021 at that time he presented with a complaint of urinary retention, and hypokalemia he had the Marquis catheter reinserted and he was discharged home to follow-up with urology as outpatient. Patient was also seen in the emergency room 1 day prior to that on 10/13/2021 at that time he was requesting to have his Marquis catheter removed due to pain he had evidence of urinary tract infection and was started on oral Ceftin and discharged home, his Marquis catheter was removed and he was instructed to return in 24 hours if he was unable to urinate which he did. Patient was also seen in the emergency room on 10/08/2021 at that time he presented with abdominal pain and had evidence of urinary retention and had a Marquis catheter placed. On 10/17/2021 patient was seen and examined on the telemetry floor he is alert and oriented 3 in no apparent distress he is no fever or chills no headache or dizziness no chest pain no shortness of breath no cough no nausea or vomiting no abdominal pain no diarrhea and no urinary symptoms. Cardiology are planning to proceed with cardiac catheterization, medication reviewed continue with current management, at this time will hold on plans for computed tomography scan of the abdomen and pelvis will continue with IV antibiotics On 10/18/2021 patient was seen and examined on the telemetry floor he is alert and oriented 3 in no apparent distress there is no fever or chills no headache or dizziness no chest pain no shortness of breath no cough no nausea or vomiting no abdominal pain no diarrhea patient is still complaining of discomfort around his Marquis catheter. Plan per cardiology is to proceed with cardiac catheterization today. On 10/19/2021 patient was seen and examined on the telemetry floor he is alert and oriented in no apparent distress he denies any chest pain or shortness of breath there is no fever or chills no headache or dizziness no cough no nausea or vomiting no abdominal pain no diarrhea and no urinary symptoms. Patient underwent cardiac catheterization yesterday with PTCA and stenting of the proximal RCA and PTCA of mid stent restenosis lesion. At this time patient is resting comfortably, he lives alone at home, will ask physical therapy and occupational therapy to assess if he needs to go to rehab prior to going home. Patient was seen by Dr. Fuad callahan on 10/20/2021 10/21/2021 and 10/22/2021 On 10/23/2021 patient was seen and examined on the medical floor he is alert and oriented 3 in no apparent distress he is complaining of generalized weakness otherwise he denies any complaints there is no fever or chills no headache or di zziness no chest pain no shortness of breath no cough no nausea or vomiting no abdominal pain no diarrhea no blood in the stools no burning with urination no frequency or urgency and no hematuria On 10/24/2021 patient was seen and examined on the medical floor he is alert and oriented 3 in no apparent distress there is no fever or chills no headache or dizziness no chest pain no shortness of breath no cough no nausea or vomiting no abdominal pain no diarrhea no blood in the stools no burning with urination no frequency or urgency and no hematuria he is still maintained on IV antibiotic cefepime, nephrology following, will recheck labs and follow in a.m. On 10/25/2021 patient was seen and examined on the medical floor he is alert and oriented in no distress, patient is complaining of discomfort with the Marquis catheter otherwise he denies any complaints there is no fever or chills no he adache or dizziness no chest pain no shortness of breath no cough no nausea or vomiting no abdominal pain no diarrhea and no urinary symptoms On 10/26/2021 patient was seen and examined on the medical floor he is alert and oriented in no distress, patient is complaining of discomfort with the Marquis catheter otherwise he denies any complaints, urine culture negative, at this time will discontinue IV antibiotics, there is no fever or chills no headache or dizziness no chest pain no shortness of breath no cough no nausea or vomiting no abdominal pain no diarrhea and no urinary symptoms. Objective - Vital Signs Vital signs: Vital Signs Temp 98.4 F 10/26/21 07:50 Pulse 66 10/26/21 07:50 Resp 16 10/26/21 07:50 BP 145/85 10/26/21 07:50 Pulse Ox 96 10/26/21 07:50 FiO2 Intake & Output 10/25/21 10/26/21 10/26/21 18:59 06:59 18:59 Intake Total 50 Output Total 500 1950 Balance -450 -1950 Intake: Intake, IV Titration 50 Amount Cefepime 1 gm In Sodium 50 Chloride 0.9% 50 ml @ 12. 5 mls/hr IVPB Q12H [facility] Rx #:[id number] Output: Urine 500 1950 Other: Voiding Method Indwelling Catheter Indwelling Catheter - Exam In general patient is alert and oriented x 3 in no distress HEENT head normocephalic and atraumatic Neck is supple no JVD no goiter no lymphadenopathy no carotid bruit Chest examination is clear to auscultation no crackles no wheezing Cardiac exam reveals regular heart sounds S1 and S2 no gallops no murmurs Abdomen is soft nontender no organomegaly with normal bowel sounds, Marquis catheter in place Extremity exam reveals no edema no cyanosis or clubbing Neurological examination reveals no gross focal deficits - Labs CBC & Chem 7: 10/26/21 07:39 10/26/21 07:39 Labs: Abnormal Lab Results - Last 24 Hours (Table) 10/25/21 10/26/21 10/26/21 Range/Units 10:00 07:39 07:39 MCH 26.5 L (27.0-32.0) pg MCHC 31.0 L (32.0-37.0) g/dL RDW 14.8 H (11.5-14.5) % Plt Count 446 H (140-440) X 10*3/uL Eosinophils # 0.45 H (0.04-0.35) X 10*3/uL Sodium 132 L (135-145) mmol/L Glucose 130 H (70-110) mg/dL Albumin/Globulin Ratio 1.37 L (1.60-3.17) g/dL Ur Random Sodium 27 L (40-220) mmol/L Assessment and Plan Plan: Two Episodes of AICD firing at at home patient was instructed by cardiology to come to emergency room. Evidence of hypokalemia and hypomagnesemia corrected in the emergency room Evidence of urinary tract infection maintained on Ceftin, will hold Ceftin Will obtain urine culture and use IV Rocephin while in hospital Underlying history of atrial fibrillation maintained on eliquis Underlying history of hypertension Underlying history of COPD Underlying history of diverticulosis with episodes of acute diverticulitis in May 2021 Underlying history of congestive heart failure, with cardiomyopathy ejection fraction on echocardiogram in May 2020 was 30-35% Urinary retention patient has Marquis catheter in he is maintained on Flomax, will consult urology for follow-up Abdominal pain Will obtain computed tomography scan of the abdomen and pelvis, patient has a history of diverticulitis At this time patient is admitted to telemetry floor Home medications reviewed and reordered He was started on IV antibiotic Rocephin He was started on IV amiodarone in the emergency room Cardiology consultation and urology consultation requested Will follow closely
[2021-10-26 18:32] VITALS: RESP 16
[2021-10-26] MEDS: HYDROcodone/APAP 5-325MG 1 EACH TAB PO PRN (22:39)
[2021-10-26] MEDS: LORATADINE 10 MG TAB PO SCH (22:40)
[2021-10-26] MEDS: DOXEPIN 25 MG CAP PO SCH (22:41)
[2021-10-26] MEDS: MIRTAZAPINE 45 MG TABLET PO SCH (22:42)
[2021-10-26] MEDS: MONTELUKAST 10 MG TAB PO SCH (22:45)
[2021-10-27] MEDS: SYMBICORT 160-4.5 MCG INHALER INHALATION SCH (07:42)
[2021-10-27] MEDS: SPIRONOLACTONE 25 MG TAB PO SCH (08:19)
[2021-10-27] MEDS: PANTOPRAZOLE 40 MG TABLET PO SCH (08:19)
[2021-10-27] MEDS: TAMSULOSIN 0.4 MG CAP.ER.24H PO SCH (08:19)
[2021-10-27] MEDS: CLOPIDOGREL 75 MG TAB PO SCH (08:20)
[2021-10-27] MEDS: ASPIRIN 81 MG PO SCH (08:20)
[2021-10-27] MEDS: APIXABAN 5 MG TAB PO SCH (08:20)
[2021-10-27] MEDS: carvediloL 12.5 MG TAB PO SCH ×2 (08:20→17:11)
[2021-10-27] MEDS: ATORVASTATIN 80 MG TAB PO SCH (08:20)
[2021-10-27] MEDS: AMIODARONE 200 MG TAB PO SCH (08:20)
[2021-10-27] MEDS: CITALOPRAM HYDROBROMIDE 10 MG TAB PO SCH (08:21)
[2021-10-27] MEDS: QUEtiapine 200 MG TAB PO SCH (08:21)
[2021-10-27 08:48] VITALS: BP 167/87; PULSE 59; TEMP 98.5
--- NOTE | 2021-10-27 09:13 | P.PN ---
Subjective Patient is seen in follow-up for acute kidney injury. Creatinine 1.2 yesterday. Nonoliguric. Hemodynamically stable. No vomiting or diarrhea. No active complaints. Vital signs are stable. General: Awake. No acute distress. HEENT: Head exam is unremarkable. LUNGS: Breath sounds decreased. HEART: Rate and Rhythm are regular. ABDOMEN: Soft, no distention. EXTREMITITES: No edema. Objective - Vital Signs Vital signs: Vital Signs Temp 98.5 F 10/27/21 08:00 Pulse 59 L 10/27/21 08:00 Resp 16 10/27/21 08:00 BP 167/87 10/27/21 08:00 Pulse Ox 96 10/27/21 08:00 FiO2 Intake & Output 10/26/21 10/27/21 10/27/21 18:59 06:59 18:59 Intake Total 50 240 Output Total 750 Balance 50 -510 Intake: Intake, IV Titration 50 Amount Cefepime 1 gm In Sodium 50 Chloride 0.9% 50 ml @ 12. 5 mls/hr IVPB Q12H [facility] Rx #:[id number] Oral 240 Output: Urine 750 Other: Voiding Method Indwelling Catheter Indwelling Catheter # Voids 1 # Bowel Movements 1 - Labs CBC & Chem 7: 10/26/21 07:39 10/26/21 07:39 Labs: Abnormal Lab Results - Last 24 Hours (Table) 10/26/21 10/26/21 Range/Units 07:39 07:39 MCH 26.5 L (27.0-32.0) pg MCHC 31.0 L (32.0-37.0) g/dL RDW 14.8 H (11.5-14.5) % Plt Count 446 H (140-440) X 10*3/uL Eosinophils # 0.45 H (0.04-0.35) X 10*3/uL Sodium 132 L (135-145) mmol/L Glucose 130 H (70-110) mg/dL Albumin/Globulin Ratio 1.37 L (1.60-3.17) g/dL Assessment and Plan Plan: Assessment: 1. Acute kidney injury secondary to ATN secondary to contrast-induced acute kidney injury. Baseline creatinine near 1 and peaked at 1.5 this admission - 1.2 yesterday. No hydronephrosis noted on CAT scan. 2. Urinary retention. Being followed by urology. Has a Marquis catheter. On Flomax as well. 3. Ischemic cardiomyopathy with AICD. Ejection fraction is 20% with moderate pulmonary hypertension. 4. Status post stenting of the proximal RCA and mid stent restenotic lesion . 5. Hyponatremia secondary to acute kidney injury. Urine sodium 27 and urine osmolality 287. Improved. Plan: Maintain 1500 mL fluid restriction. Resume Lasix 20 mg once daily starting tomorrow. Encourage oral intake. Low-salt diet. Avoid nephrotoxins. Repeat BMP and magnesium level to 3 days postdischarge. Follow up outpatient in 1 week. Patient advised to maintain a low-salt diet as well as a 40-45 pounds fluid restriction per day upon discharge. He was also advised to monitor his weight closely at home and to notify physician if develops edema or gains more than 3 pounds in 1 week duration.
[2021-10-27 11:42] LABS: Basophils # (A) 0.06 X 10*3/uL (0.00-0.10); Basophils % (A) 0.8 %; Eosinophils # (A) 0.42 X 10*3/uL (0.04-0.35); Eosinophils % (A) 5.6 %; HCT 44.6 % (39.6-50.0); HGB 13.8 g/dL (13.0-17.0); Immature Grans, Automated 0.3 %; Lymphocytes # (A) 3.06 X 10*3/uL (0.90-5.00); Lymphocytes % (A) 40.8 %; MCH 26.4 pg (27.0-32.0); MCHC 30.9 g/dL (32.0-37.0); MCV 85.3 fL (80.0-97.0); Mean Platelet Volume 9.9 fL (9.5-12.2); Monocytes # (A) 0.62 X 10*3/uL (0.20-1.00); Monocytes % (A) 8.3 %; NRBC Per 100 WBC 0 /100 WBCS (0.0-0.0); Neutrophils # (A) 3.32 X 10*3/uL (1.80-7.70); Neutrophils % (A) 44.2 %; Platelet Count 393 X 10*3/uL (140-440); RBC 5.23 X 10*6/uL (4.40-5.60); RDW 15.1 % (11.5-14.5)
[2021-10-27 12:01] LABS: African American GFR (CKD) 73.8 (60.0-200.0); Albumin 3.9 g/dL (3.8-4.9); Albumin/Globulin Ratio 1.49 (1.60-3.17); Anion Gap 9.3 mmol/L (10.00-18.00); BUN/Creat Ratio 16.78 Ratio (12.00-20.00); Blood Urea Nitrogen 19.3 mg/dL (9.0-27.0); Calcium 9.4 mg/dL (8.7-10.3); Carbon Dioxide 26.9 mmol/L (20.0-27.5); Globulin 2.6 g/dL (1.6-3.3); Magnesium 2.3 mg/dL (1.5-2.4); Non-African American GFR(CKD) 63.7 (60.0-200.0); Potassium 4.9 mmol/L (3.5-5.5); Total Bilirubin 0.3 mg/dL (0.30-1.20); Total Protein 6.5 g/dL (6.2-8.2)
--- NOTE | 2021-10-27 13:20 | P.PN ---
Subjective Progress Note Date: 10/27/21 CHIEF COMPLAINT: Abdominal pain HISTORY OF PRESENT ILLNESS: Patient is up ambulating in the hallway. He denies any abdominal pain. His urine output continues to become more clear. Hematuria has essentially resolved. Nephrology following regards to hyponatremia. He is following up with urology outpatient. Denies any nausea or vomiting. Tolerating diet. He is having regular bowel movements. Patient seen and examined with Dr. martin PHYSICAL EXAM: VITAL SIGNS: Reviewed. GENERAL: Well-developed in no acute distress. HEENT: No sclera icterus. Extraocular movements grossly intact. Moist buccal mucosa. Head is atraumatic, normocephalic. ABDOMEN: Soft. Nondistended. Nontender. NEUROLOGIC: Alert and oriented. Cranial nerves II through XII grossly intact. ASSESSMENT: 1. Abdominal pain resolved 2. Urinary retention 3. UTI PLAN: -No surgical intervention planned -Continue supportive care Physician Portal Architect note has been reviewed by physician. Signing provider agrees with the documented findings, assessment, and plan of care. Objective - Vital Signs Vital signs: Vital Signs Temp 98.5 F 10/27/21 08:00 Pulse 59 L 10/27/21 08:00 Resp 16 10/27/21 08:00 BP 167/87 10/27/21 08:00 Pulse Ox 96 10/27/21 08:00 FiO2 Intake & Output 10/26/21 10/27/21 10/27/21 18:59 06:59 18:59 Intake Total 50 240 Output Total 750 2500 Balance 50 -510 -2500 Intake: Intake, IV Titration 50 Amount Cefepime 1 gm In Sodium 50 Chloride 0.9% 50 ml @ 12. 5 mls/hr IVPB Q12H [facility] Rx #:[id number] Oral 240 Output: Urine 750 2500 Uretheral (Marquis) 2500 Other: Voiding Method Indwelling Catheter Indwelling Catheter Indwelling Catheter # Voids 1 # Bowel Movements 1 - Labs CBC & Chem 7: 10/27/21 07:55 10/27/21 07:55 Labs: Abnormal Lab Results - Last 24 Hours (Table) 10/27/21 10/27/21 Range/Units 07:55 07:55 MCH 26.4 L (27.0-32.0) pg MCHC 30.9 L (32.0-37.0) g/dL RDW 15.1 H (11.5-14.5) % Eosinophils # 0.42 H (0.04-0.35) X 10*3/uL Sodium 132 L (135-145) mmol/L Anion Gap 9.30 L (10.00-18.00) mmol/L Albumin/Globulin Ratio 1.49 L (1.60-3.17) g/dL
--- NOTE | 2021-10-27 13:26 | P.DS ---
Providers Date of admission: 10/16/21 14:56 Expected date of discharge: 10/27/21 Attending physician: Roxanna Patel Consults: 10/16/21 13:51 Consult Physician Routine Consulting Provider: Kaden Monsalve Consult Reason/Comments: aicd firing Do you want consulting provider notified?: Already Contacted 10/16/21 19:55 Consult Physician Routine Consulting Provider: Wilfrido Cuba Consult Reason/Comments: Urinary retention Do you want consulting provider notified?: Yes 10/22/21 15:17 Consult Physician Routine Consulting Provider: Neo Meehan Consult Reason/Comments: abd pain, known pt Do you want consulting provider notified?: Yes Consult Physician Urgent Consulting Provider: Carlos Manuel Garvin Consult Reason/Comments: ildefonso Do you want consulting provider notified?: Yes Primary care physician: Roxanna Patel [facility] Course: Diagnosis on discharge: Two Episodes of AICD firing at at home patient was instructed by cardiology to c ome to emergency room. Bradycardia patient underwent pacemaker placement during this admission Evidence of hypokalemia and hypomagnesemia corrected in the emergency room Evidence of urinary tract infection maintained on Ceftin, will hold Ceftin Will obtain urine culture and use IV Rocephin while in hospital Underlying history of atrial fibrillation maintained on eliquis Underlying history of hypertension Underlying history of COPD Underlying history of diverticulosis with episodes of acute diverticulitis in May 2021 Underlying history of congestive heart failure, with cardiomyopathy ejection fraction on echocardiogram in May 2020 was 30-35% Urinary retention patient has Marquis catheter in he is maintained on Flomax, will consult urology for follow-up Abdominal pain Will obtain computed tomography scan of the abdomen and pelvis, patient has a history of diverticulitis Hospital course: Rayray Stewart, is a 71-year-old male well-known to my practice who presented to [facility] emergency room after he [facility] a [facility] from [facility] advising him to go to emergency room due to firing of his AICD twice. He was evaluated in the emergency room vital examination on presentation revealed a temperature of 97.6 pulse 68 respiration 18 blood pressure 137/79 pulse ox 96% on room air Laboratory data revealed a white blood count of 6.6 hemoglobin 12.2 platelet count 313 sodium 134 potassium 3.4 chloride 101 CO2 27 BUN 13 creatinine 0.9 Testing in the emergency room revealed chest x-ray done in the emergency room r evealed mild cardiomegaly with interstitial prominence and patchy by basilar area of atelectasis versus infiltrates, EKG done in the emergency room revealed sinus rhythm with frequent ventricular premature complexes left axis deviation and moderate intraventricular conduction delay prolonged QT interval and nonspecific T-wave abnormality. Patient was admitted to medical floor for further evaluation and treatment, cardiology consultation was requested. Patient was in the emergency room 2 days prior to this presentation on 10/14/2021 at that time he presented with a complaint of urinary retention, and hypokalemia he had the Marquis catheter reinserted and he was discharged home to follow-up with urology as outpatient. Patient was also seen in the emergency room 1 day prior to that on 10/13/2021 at that time he was requesting to have his Marquis catheter removed due to pain he had evidence of urinary tract infection and was started on oral Ceftin and discharged home, his Marquis catheter was removed and he was instructed to return in 24 hours if he was unable to urinate which he did. Patient was also seen in the emergency room on 10/08/2021 at that time he presented with abdominal pain and had evidence of urinary retention and had a Marquis catheter placed. On 10/17/2021 patient was seen and examined on the telemetry floor he is alert and oriented 3 in no apparent distress he is no fever or chills no headache or dizziness no chest pain no shortness of breath no cough no nausea or vomiting no abdominal pain no diarrhea and no urinary symptoms. Cardiology are planning to proceed with cardiac catheterization, medication reviewed continue with current management, at this time will hold on plans for computed tomography scan of the abdomen and pelvis will continue with IV antibiotics On 10/18/2021 patient was seen and examined on the telemetry floor he is alert and oriented 3 in no apparent distress there is no fever or chills no headache or dizziness no chest pain no shortness of breath no cough no nausea or vomiting no abdominal pain no diarrhea patient is still complaining of discomfort around his Marquis catheter. Plan per cardiology is to proceed with cardiac cathete rization today. On 10/19/2021 patient was seen and examined on the telemetry floor he is alert and oriented in no apparent distress he denies any chest pain or shortness of breath there is no fever or chills no headache or dizziness no cough no nausea or vomiting no abdominal pain no diarrhea and no urinary symptoms. Patient underwent cardiac catheterization yesterday with PTCA and stenting of the proximal RCA and PTCA of mid stent restenosis lesion. At this time patient is resting comfortably, he lives alone at home, will ask physical therapy and occupational therapy to assess if he needs to go to rehab prior to going home. Patient was seen by Dr. Fuad callahan on 10/20/2021 10/21/2021 and 10/22/2021 On 10/23/2021 patient was seen and examined on the medical floor he is alert and oriented 3 in no apparent distress he is complaining of generalized weakness otherwise he denies any complaints there is no fever or chills no headache or dizziness no chest pain no shortness of breath no cough no nausea or vomiting no abdominal pain no diarrhea no blood in the stools no burning with urination no frequency or urgency and no hematuria On 10/24/2021 patient was seen and examined on the medical floor he is alert and oriented 3 in no apparent distress there is no fever or chills no headache or dizziness no chest pain no shortness of breath no cough no nausea or vomiting no abdominal pain no diarrhea no blood in the stools no burning with urination no frequency or urgency and no hematuria he is still maintained on IV antibiotic cefepime, nephrology following, will recheck labs and follow in a.m. On 10/25/2021 patient was seen and examined on the medical floor he is alert and oriented in no distress, patient is complaining of discomfort with the Marquis catheter otherwise he denies any complaints there is no fever or chills no headache or dizziness no chest pain no shortness of breath no cough no nausea or vomiting no abdominal pain no diarrhea and no urinary symptoms On 10/26/2021 patient was seen and examined on the medical floor he is alert and oriented in no distress, patient is complaining of discomfort with the Marquis catheter otherwise he denies any complaints, urine culture negative, at this time will discontinue IV antibiotics, there is no fever or chills no headache or dizziness no chest pain no shortness of breath no cough no nausea or vomiting no abdominal pain no diarrhea and no urinary symptoms. On 10/27/2021 patient was seen and examined on the medical floor he is alert and oriented 3 in no apparent distress there is no fever or chills no headache or dizziness no chest pain no shortness of breath no cough no nausea or vomiting no abdominal pain no diarrhea no blood in the stools no burning with urination no frequency or urgency and no hematuria, urine culture is negative no need for further antibiotic at this point. He will be discharged home today. Patient still has Marquis catheter in and will follow-up with urology within 1 week, he will also follow-up with in our office in one week Patient Condition at Discharge: Serious Plan - Discharge Summary Discharge Rx Participant: No New Discharge Prescriptions: New Amiodarone [Cordarone] 200 mg PO BID tab Furosemide [Lasix] 20 mg PO DAILY tab Clopidogrel [Plavix] 75 mg PO DAILY tab Aspirin 81 mg PO DAILY tab Tamsulosin [Flomax] 0.4 mg PO BID cap Continue Mirtazapine 45 mg PO HS QUEtiapine [SEROquel] 200 mg PO BID Omeprazole 40 mg PO AC-BRKFST Spironolactone [Aldactone] 25 mg PO DAILY Montelukast [Singulair] 10 mg PO HS Levocetirizine Dihydrochloride 5 mg PO HS Budesonide/Formoterol Fumarate [Symbicort 160-4.5 Mcg Inhaler] 2 puff INHALATION RT-BID Citalopram Hydrobromide [CeleXA] 10 mg PO DAILY Apixaban [Eliquis] 5 mg PO BID Atorvastatin [Lipitor] 20 mg PO DAILY Nitroglycerin Sl Tabs [Nitrostat] 0.4 mg SL Q5M PRN PRN Reason: Chest Pain carvediloL [Coreg] 12.5 mg PO BID-W/MEALS Doxepin [SINEquan] 25 mg PO HS cap Fluticasone Nasal Linwood [Flonase Nasal Linwood] 2 spr EA NOSTRIL DAILY PRN PRN Reason: Allergy Symptoms Albuterol Inhaler [Ventolin Hfa Inhaler] 2 puff INHALATION RT-QID PRN PRN Reason: Shortness Of Breath Discontinued Losartan [Cozaar] 50 mg PO DAILY #30 tab Potassium Chloride [K-Tab ER] 20 meq PO DAILY 5 Days #5 tab Tamsulosin [Flomax] 0.4 mg PO PC-BRKFST #30 cap cefUROXime axetiL [Ceftin] 500 mg PO BID 7 Days #14 tab Furosemide [Lasix] 20 mg PO DAILY@1400 Furosemide [Lasix] 40 mg PO DAILY Oxybutynin Chloride [Ditropan] 5 mg PO DAILY Discharge Medication List Mirtazapine 45 mg PO HS 04/01/14 [History] Omeprazole 40 mg PO AC-BRKFST 04/01/14 [History] QUEtiapine [SEROquel] 200 mg PO BID 04/01/14 [History] Spironolactone [Aldactone] 25 mg PO DAILY 04/01/14 [History] Budesonide/Formoterol Fumarate [Symbicort 160-4.5 Mcg Inhaler] 2 puff INHALATION RT-BID 07/20/14 [History] Citalopram Hydrobromide [CeleXA] 10 mg PO DAILY 07/20/14 [History] Levocetirizine Dihydrochloride 5 mg PO HS 07/20/14 [History] Montelukast [Singulair] 10 mg PO HS 07/20/14 [History] Apixaban [Eliquis] 5 mg PO BID 06/02/20 [History] Atorvastatin [Lipitor] 20 mg PO DAILY 06/02/20 [History] Nitroglycerin Sl Tabs [Nitrostat] 0.4 mg SL Q5M PRN 06/06/20 [History] Albuterol Inhaler [Ventolin Hfa Inhaler] 2 puff INHALATION RT-QID PRN 05/29/21 [History] carvediloL [Coreg] 12.5 mg PO BID-W/MEALS 05/29/21 [History] Doxepin [SINEquan] 25 mg PO HS cap 06/06/21 [Rx] Fluticasone Nasal Linwood [Flonase Nasal Linwood] 2 spr EA NOSTRIL DAILY PRN 06/16/21 [History] Amiodarone [Cordarone] 200 mg PO BID tab 10/27/21 [Rx] Aspirin 81 mg PO DAILY tab 10/27/21 [Rx] Clopidogrel [Plavix] 75 mg PO DAILY tab 10/27/21 [Rx] Furosemide [Lasix] 20 mg PO DAILY tab 10/27/21 [Rx] Tamsulosin [Flomax] 0.4 mg PO BID cap 10/27/21 [Rx] Follow up Appointment(s)/Referral(s): Kaden Monsalve MD [STAFF PHYSICIAN] - 1 Week Sincere Rosas Senior [NON-STAFF] - 1-2 Days Roxanna Patel MD [Primary Care Provider] - 1-2 days Freddy Hastings MD [STAFF PHYSICIAN] - 1 Week Patient Instructions/Handouts: Implantable Cardioverter Defibrillator (DC), After Radial Heart Catheterization (GEN) Activity/Diet/Wound Care/Special Instructions: Amiodarone Taper Instructions: Amiodarone 400mg Twice a day 10/19/2021-10/25/2021 Then taken Amiodarone 200mg Twice a day starting 10/26/2021- 11/01/2021 The take Amiodarone 200mg daily starting 11/02/2021 Further changes by your Story Reader Dr. Monsalve in the office Take Aspirin 81mg daily, Plavix 75mg daily and Eliquis 5mg Twice a day- Until you follow up with Dr. Monsalve Cardiology Instructions After Cardiac Catheterization with Stent Placement: 1. Aspirin as anti-platelet therapy - Aspirin lessens the chance of heart attack and stroke. It helps prevent blood clots from forming, allowing the blood to flow more easily. Each day, you will take one 81 mg (non-enteric coated) tablet daily. You will be taking aspirin as a lifelong medication. Do not stop unless instructed by your doctor. 2. Anti-platelet Therapy. -In addition to aspirin, you will take ONE of the following anti-platelet medications daily. This will help prevent a clot from forming in your stent: Plavix (clopidogrel) -You will need to take your anti-platelet medicine every day for 12 months -Please consult your heart doctor before you stop this medicine. -They may want you to continue for a longer period of time. 3. Statins -A statin medication lowers cholesterol levels in the blood. This helps slow the progression of heart disease. - Please take your statin medication as prescribed by your doctor. -You may be taking one of the following statins: Lipitor (atorvastatin) Other Medications: -ACEI/ Angiotensin II Receptor Josiah (Your Medication = Losartan)- can help your heart work better after a heart attack and decrease the amount of damage from a heart attack -Beta josiah (Your medication: Carvedilol) Is a medication that protects your heart from stress and can prevent future heart attacks. It can slow your heart rate. It can take weeks for your body to get used to a beta josiah. The dose may need to be changed a few times as your body adjusts -Spironolactone (Aldactone)- is a type of diuretic; it helps the body get rid of extra salt and fluid. However, it also helps the body hold onto potassium. Do not stop taking these medicines without talking to your doctor. -Take all other medicines as directed by your doctor. Do not take any extra aspirin or ibuprofen. They can increase your risk of bleeding. Many [id number] drugs contain aspirin. If you are unsure about what the drug c ontains, check with your pharmacist before taking it. -For mild discomfort, you may take plain Tylenol (acetaminophen). Follow dose directions, but do not take more than 4,000 mg of acetaminophen in 24 hours. Contact your doctor right away or go to the nearest hospital Emergency Room if you have: -Severe angina or chest pain. (This may be a sign of a problem with your stent.) -Excessive bruising, blood in urine/stool or black tarry stools. [facility] up with [facility] [place] [phone]
[2021-10-27] MEDS: SODIUM CHLORIDE 0.9% 1,000 ML IV SCH (17:11)
[2021-10-28] MEDS ORDERED: FUROSEMIDE 20 MG TAB PO SCH (09:00)
== END 2021-10-27 17:52 | disposition home or self-care (01) | DRG 246 ==
LOC: EC 13:41 → 3SCARD 14:56 → 4SSUR 10-21 16:50
PROVIDERS: ADMIT Internal Medicine; ATTEND Internal Medicine
PROC: 4B02XTZ Measurement of Cardiac Defibrillator, External Approach (ICD-10-PCS; 2021-10-16)
PROC: 4A033BC Measurement of Arterial Pressure, Coronary, Percutaneous Approach (ICD-10-PCS; principal; 2021-10-18 10:30)
PROC: B2111ZZ Fluoroscopy of Multiple Coronary Arteries using Low Osmolar Contrast (ICD-10-PCS; principal; 2021-10-18 10:30)
PROC: 4A023N7 Measurement of Cardiac Sampling and Pressure, Left Heart, Percutaneous Approach (ICD-10-PCS; principal; 2021-10-18 10:30)
PROC: 027134Z Dilation of Coronary Artery, Two Arteries with Drug-eluting Intraluminal Device, Percutaneous Approach (ICD-10-PCS; 2021-10-18 10:30)
DX: I47.2 Ventricular tachycardia (principal); N17.0 Acute kidney failure with tubular necrosis; N39.0 Urinary tract infection, site not specified; T83.511A Infection and inflammatory reaction due to indwelling urethral catheter, initial encounter; E87.1 Hypo-osmolality and hyponatremia; I50.22 Chronic systolic (congestive) heart failure; J98.11 Atelectasis; T82.855A Stenosis of coronary artery stent, initial encounter; E78.5 Hyperlipidemia, unspecified; E83.42 Hypomagnesemia; E87.6 Hypokalemia; F32.A Depression, unspecified; F41.9 Anxiety disorder, unspecified; H91.90 Unspecified hearing loss, unspecified ear; I11.0 Hypertensive heart disease with heart failure; I25.10 Atherosclerotic heart disease of native coronary artery without angina pectoris; M10.9 Gout, unspecified; I25.5 Ischemic cardiomyopathy; I27.20 Pulmonary hypertension, unspecified; D50.9 Iron deficiency anemia, unspecified; I69.311 Memory deficit following cerebral infarction; I45.9 Conduction disorder, unspecified; I48.0 Paroxysmal atrial fibrillation; J44.9 Chronic obstructive pulmonary disease, unspecified; K21.9 Gastro-esophageal reflux disease without esophagitis; G47.33 Obstructive sleep apnea (adult) (pediatric); R31.9 Hematuria, unspecified; Y73.8 Miscellaneous gastroenterology and urology devices associated with adverse incidents, not elsewhere classified; Y83.1 Surgical operation with implant of artificial internal device as the cause of abnormal reaction of the patient, or of later complication, without mention of misadventure at the time of the procedure; K52.9 Noninfective gastroenteritis and colitis, unspecified; K57.30 Diverticulosis of large intestine without perforation or abscess without bleeding; T50.8X5A Adverse effect of diagnostic agents, initial encounter; Z79.01 Long term (current) use of anticoagulants; Z79.51 Long term (current) use of inhaled steroids; Z79.899 Other long term (current) drug therapy; Z82.49 Family history of ischemic heart disease and other diseases of the circulatory system; Z87.891 Personal history of nicotine dependence; Z45.02 Encounter for adjustment and management of automatic implantable cardiac defibrillator; Z96.0 Presence of urogenital implants; Z87.01 Personal history of pneumonia (recurrent); Z88.1 Allergy status to other antibiotic agents; Z60.2 Problems related to living alone; Z86.010 Personal history of colon polyps
CPT/HCPCS: 36415; 71045; 74176; 80048; 80053; 80076; 81001; 83605; 83690; 83735; 83930; 83935; 84300; 84443; 84484; 85025; 85610; 85730; 87086; 93005; 93306; 93458; 93799; 94640; 96365; 96366; 96368; 99285

== ENCOUNTER 2022-03-14 22:43 | Emergency (ER) | payer MEDICARE ==
[2022-03-14 23:04] VITALS: TEMP 97.6
[2022-03-15 00:02] VITALS: BP 143/96; PULSE 67; RESP 16
--- NOTE | 2022-03-15 01:05 | XR ---
EXAMINATION TYPE: XR chest 2V DATE OF EXAM: 03/15/2022 12:51 AM COMPARISON: Chest radiographs from 03/14/2022 TECHNIQUE: XR chest 2V Frontal and lateral views of the chest. CLINICAL INDICATION:Male, 71 years old with history of SOB; FINDINGS: Lungs/Pleura: Low lung volumes, Bibasilar atelectasis. No evidence for pneumothorax, pleural effusion or focal consolidation. Pulmonary vascularity: Unremarkable. Heart/mediastinum: Cardiomediastinal silhouette is enlarged and stable. Musculoskeletal: No acute osseous pathology. IMPRESSION: Cardiomegaly with low lung volumes and basilar atelectasis.
[2022-03-15 01:32] LABS: Basophils % (A) 1 %; Eosinophils # (A) 0.1 k/uL (0-0.7); Eosinophils % (A) 2 %; HCT 33.1 % (39.0-53.0); HGB 10.9 gm/dL (13.0-17.5); Hypochromasia Slight; Lymphocytes # (A) 1.7 k/uL (1.0-4.8); Lymphocytes % (A) 25 %; Mean Platelet Volume 7.9; Monocytes # (A) 0.5 k/uL (0-1.0); Monocytes % (A) 7 %; Neutrophils # (A) 4.4 k/uL (1.3-7.7); Neutrophils % (A) 64 %; Platelet Count 357 k/uL (150-450); RBC 3.64 m/uL (4.30-5.90); RDW 14.7 % (11.5-15.5); WBC 6.8 k/uL (3.8-10.6)
[2022-03-15 01:46] LABS: Albumin 4.2 g/dL (3.5-5.0); Magnesium 1.9 mg/dL (1.6-2.3); Potassium 4.2 mmol/L (3.5-5.1); Total Bilirubin 0.2 mg/dL (0.2-1.3); Total Protein 6.9 g/dL (6.3-8.2)
--- NOTE | 2022-03-15 02:20 | ED ---
General Adult HPI - General Chief complaint: Upper Respiratory Infection Stated complaint: Shortness of Breath, Cough Time Seen by Provider: 03/14/22 23:31 Source: patient, EMS Mode of arrival: wheelchair - History of Present Illness Initial comments: This is a 71-year-old male with an extensive past medical history including congestive heart failure, hypertension presented to the emergency department for shortness of breath. The patient stated he has had increasing shortness of breath over the last 1 week and decided that he wanted to get checked out today to make sure he was okay. The patient complained of increasing cough and congestion while laying supine however stated that he was fine with sitting upright. The patient and multiple complaints but stated that this shortness of breath causing to come to the emergency department tonight. The patient denied any recent sick contacts and denied any fevers and chills. The patient was resting in bed comfortably without any distress on my evaluation. - Related Data Home Medications Medication Instructions Recorded Confirmed Mirtazapine 45 mg PO HS 04/01/14 10/16/21 Omeprazole 40 mg PO AC-BRKFST 04/01/14 10/16/21 QUEtiapine [SEROquel] 200 mg PO BID 04/01/14 10/16/21 Spironolactone [Aldactone] 25 mg PO DAILY 04/01/14 10/16/21 Budesonide/Formoterol Fumarate 2 puff INHALATION RT-BID 07/20/14 10/16/21 [Symbicort 160-4.5 Mcg Inhaler] Citalopram Hydrobromide [CeleXA] 10 mg PO DAILY 07/20/14 10/16/21 Levocetirizine Dihydrochloride 5 mg PO HS 07/20/14 10/16/21 Montelukast [Singulair] 10 mg PO HS 07/20/14 10/16/21 Apixaban [Eliquis] 5 mg PO BID 06/02/20 10/16/21 Atorvastatin [Lipitor] 20 mg PO DAILY 06/02/20 10/16/21 Nitroglycerin Sl Tabs [Nitrostat] 0.4 mg SL Q5M PRN 06/06/20 10/16/21 Albuterol Inhaler [Ventolin Hfa 2 puff INHALATION RT-QID PRN 05/29/21 10/16/21 Inhaler] carvediloL [Coreg] 12.5 mg PO BID-W/MEALS 05/29/21 10/16/21 Fluticasone Nasal [place] [Flonase 2 spr EA NOSTRIL DAILY PRN 06/16/21 10/16/21 Nasal [place]] Previous Rx's Medication Instructions Recorded Doxepin [SINEquan] 25 mg PO HS cap 06/06/21 Amiodarone [Cordarone] 200 mg PO BID tab 10/27/21 Aspirin 81 mg PO DAILY tab 10/27/21 Clopidogrel [Plavix] 75 mg PO DAILY tab 10/27/21 Furosemide [Lasix] 20 mg PO DAILY tab 10/27/21 Tamsulosin [Flomax] 0.4 mg PO BID cap 10/27/21 Allergies Allergy/AdvReac Type Severity Reaction Status Date / Time Barbiturates Allergy Anaphylaxis Verified 03/14/22 23:04 levofloxacin [From Levaquin] Allergy Dyspnea & Verified 03/14/22 23:04 Leg Swelling and Pain & Headache Review of Systems ROS Statement: Those systems with pertinent positive or pertinent negative responses have been documented in the HPI. ROS Other: All systems not noted in ROS Statement are negative. 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 Stovall, gout bilateral feet, occasional numbness L leg/L great toe, hx of PHIL with CPAP but no longer an issue since wt. 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 History of Any Multi-Drug Resistant Organisms: None Reported Past Surgical History: AICD, Cholecystectomy, Heart Catheterization, Heart Catheterization With Stent, Hernia Repair, Pacemaker, Tonsillectomy Additional Past Surgical History / Comment(s): 07/24/14 EGD/colonoscopy with polypectomy/bx, 2005 AICD/2014 AICD changed to medtronic, 2002 Cardiac stent in [place], 2007 cardiac cath [facility], upper teeth extracted for denture, L ear has tube, R ear plugged, cyst removed L eyelid, bilateral cataract removal, L ganglion cyst removal, L/R inguinal hernia repairs with mesh, penile implant. Past Anesthesia/Blood Transfusion Reactions: No Reported Reaction Date of Last Stent Placement:: 2002 Type of Cardiac Device: AICD Device Placement Date:: 2014 Past Psychological History: Anxiety, Depression Smoking Status: Former smoker Past Alcohol Use History: None Reported Past Drug Use History: None Reported - Past Family History Father Family Medical History: Coronary Artery Disease (CAD), Pneumonia Additional Family Medical History / Comment(s): Father of pneumonia at the age of 82 yrs. Mother Family Medical History: Liver Disease, Renal Disease Additional Family Medical History / Comment(s): father passed after a bout with pneumonia General Exam Limitations: no limitations General appearance: alert, in no apparent distress Head exam: Present: atraumatic, normocephalic Eye exam: Present: normal appearance, PERRL Pupils: Present: normal accommodation ENT exam: Present: normal exam, normal oropharynx, mucous membranes moist Neck exam: Present: normal inspection, full ROM Respiratory exam: Present: normal lung sounds bilaterally Cardiovascular Exam: Present: regular rate, normal rhythm, normal heart sounds GI/Abdominal exam: Present: soft, normal bowel sounds Extremities exam: Present: normal inspection, full ROM Back exam: Present: normal inspection, full ROM Neurological exam: Present: alert, oriented X3, CN II-XII intact Psychiatric exam: Present: normal affect, normal mood Skin exam: Present: warm, dry Course Vital Signs 03/14/22 03/14/22 23:01 23:59 Temperature 97.6 F Pulse Rate 78 67 Respiratory 18 16 Rate Blood Pressure 132/82 143/96 O2 Sat by Pulse 98 99 Oximetry EKG Findings - EKG Comments: EKG Findings:: In EKG was obtained and was interpreted by myself. EKG showed a rate of 71, irritable to a 7, QRS duration 126 and QTC of 419. This EKG showed a normal sinus rhythm with no ST segment elevations or depressions noted. Medical Decision Making - Medical Decision Making Was pt. sent in by a medical professional or institution? @None Did you speak to anyone other than the patient for history? @No Did you review nursing and triage notes? @Triaging and nursing notes were reviewed Were old charts reviewed? @Old hospital records were reviewed for the patient's extensive past medical history Differential Diagnosis? @Congestive heart failure exacerbation, fluid overload, ACS, COVID-19, RSV, influenza EKG interpreted by me (3pts min.)? @As above X-rays interpreted by me (1pt min.)? @Chest x-ray was obtained and was interpreted by myself showing cardiomegaly with low lung volumes and basilar atelectasis CT interpreted by me (1pt min.)? @ [none] U/S interpreted by me (1pt. min.)? @ [none] What testing was considered but not performed? (CT, X-rays, U/S, labs)? Why? @CT scan was considered however the patient denied of any signs or symptoms concerning for pulmonary embolism or any intrathoracic process based on the chest x-ray results therefore computed tomography scan was not ordered at this time. What meds were considered but not given? Why? @ [none] Did you discuss the management of the patient with other professionals? @None Did you reconcile home meds? @ [none] Was smoking cessation discussed for >3mins.? @ [none] Was critical care preformed (if so, how long)? @ [none] Were there social determinants of health that impacted care today? How? (Homelessness, low income, unemployed, alcoholism, drug addiction, transportation, low edu. Level, literacy, decrease access to med. care, custodial, rehab)? @None Was there de-escalation of care discussed even if they declined? (Discuss DNR or withdrawal of care, Hospice)? @None What co-morbidities impacted this encounter? (DM, HTN, Smoking, COPD, CAD, Cancer, CVA, Hep., AIDS, mental health diagnosis, sleep apnea, morbid obesity)? @Hypertension, CHF, COPD Was patient admitted / discharged? @The patient was seen and evaluated. Laboratory workup was obtained chest x-ray was obtained. All laboratory workup and chest x-ray negative. All swabs are negative as well. The patient likely had a URI as a cause of his symptoms and denied of any concerning symptoms requiring admission. The patient was told of this plan and was agreeable. The patient was discharged home in stable condition. Undiagnosed new problem with uncertain prognosis? @ [none] Drug Therapy requiring intensive monitoring for toxicity (Heparin, Nitro, Insulin, Cardizem)? @ [none] Were any procedures done? @ [none] Diagnosis/symptom? @Acute viral URI consistent from the patient's intermittent productive cough Acute, or Chronic, or Acute on Chronic? @Acute Uncomplicated (without systemic symptoms) or Complicated (systemic symptoms)? @Uncomplicated Side effects of treatment? @ [none] Exacerbation, Progression, or Severe Exacerbation] @ [no] Poses a threat to life or bodily function? @ [no] - Lab Data Result diagrams: 03/15/22 00:58 03/15/22 00:58 Lab Results 03/14/22 03/15/22 03/15/22 Range/Units 23:05 00:58 00:58 WBC 6.8 (3.8-10.6) k/uL RBC 3.64 L (4.30-5.90) m/uL Hgb 10.9 L (13.0-17.5) gm/dL Hct 33.1 L (39.0-53.0) % MCV 91.0 (80.0-100.0) fL MCH 30.0 (25.0-35.0) pg MCHC 33.0 (31.0-37.0) g/dL RDW 14.7 (11.5-15.5) % Plt Count 357 (150-450) k/uL MPV 7.9 Neutrophils % 64 % Lymphocytes % 25 % Monocytes % 7 % Eosinophils % 2 % Basophils % 1 % Neutrophils # 4.4 (1.3-7.7) k/uL Lymphocytes # 1.7 (1.0-4.8) k/uL Monocytes # 0.5 (0-1.0) k/uL Eosinophils # 0.1 (0-0.7) k/uL Basophils # 0.0 (0-0.2) k/uL Hypochromasia Slight Sodium 135 L (137-145) mmol/L Potassium 4.2 (3.5-5.1) mmol/L Chloride 105 (98-107) mmol/L Carbon Dioxide 25 (22-30) mmol/L Anion Gap 5 mmol/L BUN 17 (9-20) mg/dL Creatinine 1.21 (0.66-1.25) mg/dL Est GFR (CKD-EPI)AfAm 69 (>60 ml/min/1.73 sqM) Est GFR (CKD-EPI)NonAf 60 (>60 ml/min/1.73 sqM) Glucose 105 H (74-99) mg/dL Calcium 9.0 (8.4-10.2) mg/dL Magnesium 1.9 (1.6-2.3) mg/dL Total Bilirubin 0.2 (0.2-1.3) mg/dL AST 23 (17-59) U/L ALT 22 (4-49) U/L Alkaline Phosphatase 88 (38-126) U/L Troponin I (0.000-0.034) ng/mL NT-Pro-B Natriuret Pep pg/mL Total Protein 6.9 (6.3-8.2) g/dL Albumin 4.2 (3.5-5.0) g/dL Influenza Type A (PCR) Not Detected (Not Detectd) Influenza Type B (PCR) Not Detected (Not Detectd) RSV (PCR) Not Detected (Not Detectd) SARS-CoV-2 (PCR) Not Detected (Not Detectd) 03/15/22 03/15/22 Range/Units 00:58 00:58 WBC (3.8-10.6) k/uL RBC (4.30-5.90) m/uL Hgb (13.0-17.5) gm/dL Hct (39.0-53.0) % MCV (80.0-100.0) fL MCH (25.0-35.0) pg MCHC (31.0-37.0) g/dL RDW (11.5-15.5) % Plt Count (150-450) k/uL MPV Neutrophils % % Lymphocytes % % Monocytes % % Eosinophils % % Basophils % % Neutrophils # (1.3-7.7) k/uL Lymphocytes # (1.0-4.8) k/uL Monocytes # (0-1.0) k/uL Eosinophils # (0-0.7) k/uL Basophils # (0-0.2) k/uL Hypochromasia Sodium (137-145) mmol/L Potassium (3.5-5.1) mmol/L Chloride (98-107) mmol/L Carbon Dioxide (22-30) mmol/L Anion Gap mmol/L BUN (9-20) mg/dL Creatinine (0.66-1.25) mg/dL Est GFR (CKD-EPI)AfAm (>60 ml/min/1.73 sqM) Est GFR (CKD-EPI)NonAf (>60 ml/min/1.73 sqM) Glucose (74-99) mg/dL Calcium (8.4-10.2) mg/dL Magnesium (1.6-2.3) mg/dL Total Bilirubin (0.2-1.3) mg/dL AST (17-59) U/L ALT (4-49) U/L Alkaline Phosphatase (38-126) U/L Troponin I <0.012 (0.000-0.034) ng/mL NT-Pro-B Natriuret Pep 31 pg/mL Total Protein (6.3-8.2) g/dL Albumin (3.5-5.0) g/dL Influenza Type A (PCR) (Not Detectd) Influenza Type B (PCR) (Not Detectd) RSV (PCR) (Not Detectd) SARS-CoV-2 (PCR) (Not Detectd) Disposition Clinical Impression: URI (upper respiratory infection) Disposition: HOME SELF-CARE Condition: Stable Instructions (If sedation given, give patient instructions): Upper Respiratory Infection (ED) Is patient prescribed a controlled substance at d/c from ED?: No Referrals: Roxanna Patel MD [Primary Care Provider] - 1-2 days Time of Disposition: 02:15
== END 2022-03-15 02:29 | disposition home or self-care (01) ==
LOC: EC 22:43
DX: J06.9 Acute upper respiratory infection, unspecified (principal); I48.91 Unspecified atrial fibrillation; I11.0 Hypertensive heart disease with heart failure; I50.9 Heart failure, unspecified; I25.10 Atherosclerotic heart disease of native coronary artery without angina pectoris; J44.9 Chronic obstructive pulmonary disease, unspecified; I42.9 Cardiomyopathy, unspecified; E78.5 Hyperlipidemia, unspecified; K21.9 Gastro-esophageal reflux disease without esophagitis; F32.A Depression, unspecified; F41.9 Anxiety disorder, unspecified; Z88.1 Allergy status to other antibiotic agents; Z87.891 Personal history of nicotine dependence; Z79.899 Other long term (current) drug therapy; Z79.01 Long term (current) use of anticoagulants; Z20.822 Contact with and (suspected) exposure to COVID-19
CPT/HCPCS: 36415; 71046; 80053; 83735; 83880; 84484; 85025; 87636; 99285

== ENCOUNTER → 2022-03-14 | Outpatient (CLI) | payer MEDICARE ==
--- NOTE | 2022-03-14 13:24 | XR ---
EXAMINATION TYPE: XR chest 2V DATE OF EXAM: 03/14/2022 COMPARISON: October 23, 2021 HISTORY: Shortness of breath TECHNIQUE: Frontal and lateral views of the chest are obtained. FINDINGS: Scattered senescent parenchymal changes noted. Increased basilar markings may reflect atelectasis. No definite focal pneumonia. Heart size is stable. IACD device is in place. Mediastinal structures are stable and grossly unremarkable. No evidence for hilar prominence. Degenerative changes dorsal spine. IMPRESSION: 1. Increased basilar markings may reflect atelectasis. No definite focal pneumonia.
== END | disposition home or self-care (01) ==
LOC: RADXRMAIN 13:01
PROVIDERS: ATTEND Internal Medicine
DX: R05.9 Cough, unspecified (principal)
CPT/HCPCS: 71046

== ENCOUNTER 2022-09-03 15:53 | Inpatient (IN) | payer MEDICARE, OTHER ==
[2022-09-03 16:31] LABS: Anisocytosis Slight; Basophils % (A) 0 %; Eosinophils # (A) 0.1 k/uL (0-0.7); Eosinophils % (A) 2 %; HCT 34.4 % (39.0-53.0); HGB 10.7 gm/dL (13.0-17.5); Hypochromasia Moderate; Lymphocytes # (A) 1.6 k/uL (1.0-4.8); Lymphocytes % (A) 24 %; MCH 24.8 pg (25.0-35.0); MCHC 31.1 g/dL (31.0-37.0); MCV 79.8 fL (80.0-100.0); Microcytosis Slight; Monocytes # (A) 0.6 k/uL (0-1.0); Monocytes % (A) 9 %; Neutrophils # (A) 4.2 k/uL (1.3-7.7); Neutrophils % (A) 62 %; Platelet Count 340 k/uL (150-450); RBC 4.31 m/uL (4.30-5.90); RDW 17.8 % (11.5-15.5); WBC 6.8 k/uL (3.8-10.6)
[2022-09-03 16:41] LABS: INR 0.9 (<1.2); Partial Thromboplastin Time 24.5 sec (22.0-30.0); Prothrombin Time 9.7 sec (9.0-12.0)
[2022-09-03 16:42] LABS: ALT 42 U/L (4-49); AST 35 U/L (17-59); African American GFR (CKD) 62 (>60 ml/min/1.73 sqM); Albumin 4.5 g/dL (3.5-5.0); Alkaline Phosphatase 105 U/L (38-126); Anion Gap 10 mmol/L; Blood Urea Nitrogen 20 mg/dL (9-20); Calcium 9.3 mg/dL (8.4-10.2); Carbon Dioxide 24 mmol/L (22-30); Chloride 103 mmol/L (98-107); Glucose 110 mg/dL (74-99); Non-African American GFR(CKD) 53 (>60 ml/min/1.73 sqM); Potassium 3.7 mmol/L (3.5-5.1); Sodium 137 mmol/L (137-145); Total Bilirubin 0.3 mg/dL (0.2-1.3); Total Protein 7.5 g/dL (6.3-8.2)
--- NOTE | 2022-09-03 16:54 | XR ---
EXAMINATION TYPE: XR chest 2V DATE OF EXAM: 09/03/2022 4:44 PM COMPARISON: Chest radiographs from 05/31/2022 TECHNIQUE: XR chest 2V Frontal and lateral views of the chest. CLINICAL INDICATION:Male, 72 years old with history of Chest Pain; FINDINGS: Lungs/Pleura: Bibasilar atelectasis. No evidence for pneumothorax, pleural effusion or focal consolid ation. Pulmonary vascularity: Unremarkable. Heart/mediastinum: Cardiomediastinal silhouette is unremarkable. Two lead cardiac conduction device o verlying the left hemithorax with lead tips projecting over the right ventricle and right atrium. Musculoskeletal: No acute osseous pathology. IMPRESSION: No acute cardiopulmonary disease/process.
--- NOTE | 2022-09-03 19:30 | ED ---
Chest Pain HPI - General Source: patient Mode of arrival: ambulatory Limitations: no limitations <Karen Stovall - Last Filed: 09/03/22 19:27> <Rocky Ayala - Last Filed: 09/03/22 22:57> - General Chief Complaint: Chest Pain Stated Complaint: SOB sent by Dr Time Seen by Provider: 09/03/22 19:28 - History of Present Illness Initial Comments: Patient is a 72-year-old male presents to the emergency department for chest pain and shortness of breath. Patient has significant cardiac history he was sent in by his primary care provider. (Karen Stovall) This is a 72-year-old male with a past mental history including hypertension, previous cardiac stenting and definitive placement presents emergency department for multiple complaints. The patient started naming off multiple different complaints including cough, chest pain, abdominal pain that is been going on for the last 6 months. The patient stated that he was sent into the emergency department by his primary care physician for further workup and evaluation. The patient stated that nothing had changed the last 6 months but stated that he was sent in today to be evaluated. The patient denied any other acute complaints but did state that he had baseline chest pain over the last 6 months. The patient stated that he had no active chest pain currently. The patient was resting in bed comfortably. (Rocky Ayala) - Related Data Home Medications Medication Instructions Recorded Confirmed Mirtazapine 45 mg PO HS 04/01/14 09/03/22 QUEtiapine [SEROquel] 200 mg PO BID 04/01/14 09/03/22 Spironolactone [Aldactone] 25 mg PO DAILY 04/01/14 09/03/22 Montelukast [Singulair] 10 mg PO HS 07/20/14 09/03/22 Apixaban [Eliquis] 5 mg PO BID 06/02/20 09/03/22 Atorvastatin [Lipitor] 20 mg PO DAILY 06/02/20 09/03/22 Nitroglycerin Sl Tabs [Nitrostat] 0.4 mg SL Q5M PRN 06/06/20 09/03/22 Albuterol Inhaler [Ventolin Hfa 2 puff INHALATION RT-QID PRN 05/29/21 09/03/22 Inhaler] Fluticasone Nasal [place] [Flonase 1 spr EA NOSTRIL DAILY 06/16/21 09/03/22 Nasal [place]] Multivitamins, Thera [Multivitamin 1 tab PO DAILY 05/31/22 09/03/22 (formulary)] Pantoprazole [Protonix] 40 mg PO DAILY 05/31/22 09/03/22 Ergocalciferol (Vitamin D2) 1,250 mcg PO TH 09/03/22 09/03/22 [Drisdol (50,000 Iu)] Fluticasone/Umeclidin/Vilanter 1 puff INHALATION RT-DAILY 09/03/22 09/03/22 [Trelegy Ellipta 100-62.5-25] Previous Rx's Medication Instructions Recorded Doxepin [SINEquan] 25 mg PO HS cap 06/06/21 Amiodarone [Cordarone] 200 mg PO BID tab 10/27/21 Aspirin 81 mg PO DAILY tab 10/27/21 Clopidogrel [Plavix] 75 mg PO DAILY tab 10/27/21 Furosemide [Lasix] 20 mg PO DAILY tab 10/27/21 Tamsulosin [Flomax] 0.4 mg PO BID cap 10/27/21 Allergies Allergy/AdvReac Type Severity Reaction Status Date / Time Barbiturates Allergy Anaphylaxis Verified 09/03/22 22:31 levofloxacin [From Levaquin] Allergy Dyspnea & Verified 09/03/22 22:31 Leg Swelling and Pain & Headache Review of Systems ROS Other: All systems not noted in ROS Statement are negative. <Karen Stovall - Last Filed: 09/03/22 19:27> ROS Other: All systems not noted in ROS Statement are negative. <Rocky Ayala - Last Filed: 09/03/22 22:57> ROS Statement: Those systems with pertinent positive or pertinent negative responses have been documented in the HPI. EKG Findings - EKG Comments: EKG Findings:: An EKG was obtained and was interpreted by myself showing a rate of 77, SC interval 196, QRS duration of 128 and QTC of 388. This EKG showed a normal sinus rhythm with no ST segment elevation or depression noted. 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 Stovall, gout bilateral feet, occasional numbness L leg/L great toe, hx of PHIL with CPAP but no longer an issue since wt. 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 History of Any Multi-Drug Resistant Organisms: None Reported Past Surgical History: AICD, Cholecystectomy, Heart Catheterization, Heart Catheterization With Stent, Hernia Repair, Pacemaker, Tonsillectomy Additional Past Surgical History / Comment(s): 07/24/14 EGD/colonoscopy with polypectomy/bx, 2005 AICD/2014 AICD changed to medtronic, 2002 Cardiac stent in [place], 2007 cardiac cath [facility], upper teeth extracted for denture, L ear has tube, R ear plugged, cyst removed L eyelid, bilateral cataract removal, L ganglion cyst removal, L/R inguinal hernia repairs with mesh, penile implant. Past Anesthesia/Blood Transfusion Reactions: No Reported Reaction Date of Last Stent Placement:: 2002 Type of Cardiac Device: AICD Device Placement Date:: 2014 Past Psychological History: Anxiety, Depression Smoking Status: Former smoker Past Alcohol Use History: None Reported Past Drug Use History: None Reported - Past Family History Father Family Medical History: Coronary Artery Disease (CAD), Pneumonia Additional Family Medical History / Comment(s): Father of pneumonia at the age of 82 yrs. Mother Family Medical History: Liver Disease, Renal Disease Additional Family Medical History / Comment(s): father passed after a bout with pneumonia <Karne Stovall - Last Filed: 09/03/22 19:27> General Exam Limitations: no limitations <Karen Stovall - Last Filed: 09/03/22 19:27> Limitations: no limitations General appearance: alert, in no apparent distress Head exam: Present: atraumatic, normocephalic, normal inspection Eye exam: Present: normal appearance, PERRL Pupils: Present: normal accommodation ENT exam: Present: normal exam, normal oropharynx, mucous membranes moist Neck exam: Present: normal inspection, full ROM Respiratory exam: Present: normal lung sounds bilaterally Cardiovascular Exam: Present: regular rate, normal rhythm, normal heart sounds GI/Abdominal exam: Present: soft, normal bowel sounds Extremities exam: Present: normal inspection, full ROM Back exam: Present: normal inspection, full ROM Neurological exam: Present: alert, oriented X3, CN II-XII intact Psychiatric exam: Present: normal affect, normal mood Skin exam: Present: warm, dry <Rocky Ayala - Last Filed: 09/03/22 22:57> - General Exam Comments Initial Comments: Visual Physical Exam Vital signs reviewed General: Well-appearing, nontoxic, no acute distress. Head: Normocephalic, atraumatic Eyes: PERRLA, EOMI ENT: Airway patent Chest: Nonlabored breathing Skin: No visual rash, normal skin tone Neuro: Alert and oriented 3 Musculoskeletal: No gross abnormalities (Sia,Karen) Course Vital Signs 09/03/22 09/03/22 16:01 22:00 Temperature 98.2 F Pulse Rate 82 69 Respiratory 24 20 Rate Blood Pressure 146/85 159/97 O2 Sat by Pulse 99 99 Oximetry Chest Pain MDM <Rocky Ayala - Last Filed: 09/03/22 22:57> - MDM Was pt. sent in by a medical professional or institution ([facility] Wilkerson, ACID LOADER, urgent care, hospital, or retirement...) When possible be specific @ -Yes, sent in by Dr. Patel Did you speak to anyone other than the patient for history (EMS, parent, family, police, friend...)? What history was obtained from this source @ -No Did you review nursing and triage notes (agree or disagree)? Why? @ -I reviewed and agree with nursing and triage notes Were old charts reviewed (outside hosp., previous admission, EMS record, old EKG, old radiological studies, urgent care reports/EKG's, retirement records)? Report findings @ -No old charts were reviewed Differential Diagnosis (chest pain, altered mental status, abdominal pain women, abdominal pain men, vaginal bleeding, weakness, fever, dyspnea, syncope, headache, dizziness, GI bleed, back pain, seizure, CVA, palpatations, mental health)? @ -ACS, pneumothorax, pneumonia EKG interpreted by me (3pts min.). @ -As above X-rays interpreted by me (1pt min.). @ -Chest x-ray was obtained and was interpreted by myself showing no acute process. CT interpreted by me (1pt min.). @ -None done U/S interpreted by me (1pt. min.). @ -None done What testing was considered but not performed or refused? (CT, X-rays, U/S, labs)? Why? @ -None What meds were considered but not given or refused? Why? @ -None Did you discuss the management of the patient with other professionals (professionals i.e. , PA, ACID LOADER, lab, RT, psych nurse, social work professor, senior oracle database administrator, teacher, bank secrecy act officer, caseworker intake)? Give summary @ -Yes, Dr. Patel was contacted regarding admission and he did suggest to place the patient observation for cardiology to evaluate. Was smoking cessation discussed for >3mins.? @ -No Was critical care preformed (if so, how long)? @ -No Were there social determinants of health that impacted care today? How? (Homelessness, low income, unemployed, alcoholism, drug addiction, transportation, low edu. Level, literacy, decrease access to med. care, penitentiary, rehab)? @ -No Was there de-escalation of care discussed even if they declined (Discuss DNR or withdrawal of care, Hospice)? DNR status @ -No What co-morbidities impacted this encounter? (DM, HTN, Smoking, COPD, CAD, Cancer, CVA, ARF, Chemo, Hep., AIDS, mental health diagnosis, sleep apnea, morbid obesity)? @ -Hypertension, previous cardiac stenting, defibrillator placement Was patient admitted / discharged? Hospital course, mention meds given and route, prescriptions, significant lab abnormalities, going to OR and other pertinent info. @ -The patient was seen and evaluated emergency department. Physical exam, the patient was resting in bed without any acute distress. Vital signs admission were stable. Laboratory workup was obtained in triage and was all within normal limits. Chest x-ray and EKG were also normal. The patient's primary care physician who sent the patient was contacted and did recommend placing the patient observation to be evaluated by cardiology in the morning. The patient was agreeable to this plan and all his questions were answered. The patient was placed in observation and stabilization. Undiagnosed new problem with uncertain prognosis? @ -No Drug Therapy requiring intensive monitoring for toxicity (Heparin, Nitro, Insulin, Cardizem)? @ -No Were any procedures done? @ -No Diagnosis/symptom? @ -Chest pain, rule out ACS Acute, or Chronic, or Acute on Chronic? @ -Chronic Uncomplicated (without systemic symptoms) or Complicated (systemic symptoms)? @ -Uncomplicated Side effects of treatment? @ -No Exacerbation, Progression, or Severe Exacerbation? @ -No Poses a threat to life or bodily function? How? (Chest pain, [place], [place], pneumonia, PE, COPD, DKA, ARF, appy, cholecystitis, CVA, Diverticulitis, Homicidal, Suicidal, threat to staff... and all critical care pts) @ -Yes, chest pain can lead to permanent damage and possible . (Rocky Ayala) Disposition <Karen Stovall - Last Filed: 09/03/22 19:27> Is patient prescribed a controlled substance at d/c from ED?: No Time of Disposition: 22:00 Decision to Admit Reason: Admit from EC Decision Date: 09/03/22 Decision Time: 22:00 <Rocky Ayala - Last Filed: 09/03/22 22:57> Clinical Impression: Chest pain Disposition: ADMITTED IP TO THIS [facility] Condition: Stable Referrals: Roxanna Patel MD [Primary Care Provider] - 1-2 days
[2022-09-03] MEDS ORDERED: NALOXONE 0.4 MG/ML 1 ML VIAL IV PRN (22:15)
[2022-09-04] MEDS ORDERED: AMIODARONE 200 MG TAB PO SCH (09:00)
[2022-09-04] MEDS ORDERED: CLOPIDOGREL 75 MG TAB PO SCH (09:00)
[2022-09-04] MEDS: SPIRONOLACTONE 25 MG TAB PO SCH (09:41)
[2022-09-04] MEDS: FUROSEMIDE 20 MG TAB PO SCH (09:41)
[2022-09-04] MEDS: ATORVASTATIN 20 MG TAB PO SCH (09:41)
[2022-09-04] MEDS: APIXABAN 5 MG TAB PO SCH ×2 (09:41→20:31)
[2022-09-04] MEDS: ASPIRIN 81 MG PO SCH (09:41)
--- NOTE | 2022-09-04 10:21 | P.CRDCN ---
History of Present Illness Consult date: 09/04/22 Consult reason: chest pain (Rule out acute coronary syndrome) History of present illness: This is a 72-year-old male patient of Dr. Monsalve with history of CAD with previous PCI, ischemic cardiomyopathy with AICD in 2012, hypertension, hyperlipidemia, paroxysmal atrial fibrillation on anticoagulation, and GI bleed with colonoscopy showing likely diverticulitis and external hemorrhoids and anticoagulation has been resumed with no recurrence. He was evaluted for possible GI surgery but was not cleared by pulmonary and cardiology secondary to high risk. Patient states he presented to the emergency center due to cough with sputum production and shortness breath that has been going on for the past 6 months it has been treated with prednisone and antibiotics with no improvement. He complains of chest pain that has been going on for 3 weeks it hurts when he coughs and takes a deep breath. He also complains of dizziness and rubbery feeling legs. Patient denies having any fever. He states he has some sweating around his throat. No nausea or vomiting. No rectal bleeding, no blood in his urine. Blood pressure this morning 152/98. Telemetry is a sinus rhythm. Patient is seen in the emergency center waiting for a bed on the [facility] unit. EKG reveals sinus rhythm, heart rate 77 Chest x-ray: No acute cardiopulmonary disease process. WBC 6.8, hemoglobin 10.7, platelet count 340. INR 0.9. Sodium 137, potassium 3.7, chloride 103, CO2 24, BUN 20 creatinine 1.33. Liver function tests are normal. Troponin 0.0-4. Echocardiogram 09/2021 revealed EF less than 15%. Moderate pulmonary hypertension, mild mitral and tricuspid regurgitation and dilated duration of the ascending aorta and question of some flow into the RV at the level of the sinus of Vansalva. Cardiac catheterization 09/2021 by FR measurement of moderate proximal RCA lesion and PTCA and stenting of the proximal RCA and PTCA of the mid stent restenosis lesion with a high pressure noncompliant balloon. Home cardiac medications: Amiodarone 200 mg twice daily, eliquis 5 mg twice daily, aspirin 81 mg daily, Lipitor 20 mg daily, Plavix 75 mg daily, Lasix 20 mg daily, Aldactone 25 mg daily. REVIEW OF SYSTEMS At the time of my exam: CONSTITUTIONAL: Denies fever or chills. Reports dizziness CARDIOVASCULAR: Reports chest pain, shortness of breath, orthopnea, PND or palpitations. RESPIRATORY: Reports cough. Reports cough with sputum production GASTROINTESTINAL: Denies abdominal pain, diarrhea, constipation, nausea or vomiting. MUSCULOSKELETAL: Denies myalgias. NEUROLOGIC: Denies numbness, tingling, headacbe or weakness. ENDOCRINE: Denies fatigue, weight change, polydipsia or polyurina. HEMATOLOGIC: Denies history of anemia or bleeding. PHYSICAL EXAMINATION CONSTITUTIONAL: No apparent distress. HEENT: Head is normocephalic. Pupils are equal, round. Sclerae anicteric. Mucous membranes of the mouth are moist. No JVD. CHEST EXAMINATION: Lungs are diminished with scattered rhonchi. HEART EXAMINATION: Regular rate and rhythm. S1, S2 heard. Systolic murmur at left sternal border. ABDOMEN: Soft, nontender. Positive bowel sounds. EXTREMITIES: 2+ peripheral pulses, no lower extremity edema and no calf tenderness. NEUROLOGIC EXAMINATION: Patient is awake, alert and oriented x3. ASSESSMENT Chest pain with cough and deep breathing appears to be related to pulmonary issues Chronic cough and sputum production History of Ventricular tachycardia with AICD CAD with previous PCI to the RCA in 2002, PTCA and stenting of the RCA in 2021 and PTCA of the mid stent restenosis lesion 2021 Ischemic cardiomyopathy with AICD in 2012 Hypertension Hyperlipidemia Paroxysmal atrial fibrillation on Eliquis History of diverticulitis Anemia Chronic kidney disease stage III PLAN Obtain 2D echocardiogram and doppler study to assess cardiac structure and function. Resume patient's home cardiac medications with the following changes: Decrease amiodarone to once daily Start patient on Farxiga 10 mg daily and Entresto 2426 milligram one twice daily Repeat troponins today and repeat BMP and CBC tomorrow Further recommendations as patient progresses Thank you kindly for this consultation. Nurse practitioner note has been reviewed by physician. Signing provider agrees with the documented findings, assessment, and plan of care. 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 Stovall, gout bilateral feet, occasional numbness L leg/L great toe, hx of PHIL with CPAP but no longer an issue since wt. 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 History of Any Multi-Drug Resistant Organisms: None Reported Past Surgical History: AICD, Cholecystectomy, Heart Catheterization, Heart Catheterization With Stent, Hernia Repair, Pacemaker, Tonsillectomy Additional Past Surgical History / Comment(s): 07/24/14 EGD/colonoscopy with polypectomy/bx, 2005 AICD/2014 AICD changed to medtronic, 2002 Cardiac stent in [place], [address] [facility], upper teeth extracted for denture, L ear has tube, R ear plugged, cyst removed L eyelid, bilateral cataract removal, L ganglion cyst removal, L/R inguinal hernia repairs with mesh, penile implant. Past Anesthesia/Blood Transfusion Reactions: No Reported Reaction Date of Last Stent Placement:: 2002 Type of Cardiac Device: AICD Device Placement Date:: 2014 Past Psychological History: Anxiety, Depression Smoking Status: Former smoker Past Alcohol Use History: None Reported Past Drug Use History: None Reported - Past Family History Father Family Medical History: Coronary Artery Disease (CAD), Pneumonia Additional Family Medical History / Comment(s): Father of pneumonia at the age of 82 yrs. Mother Family Medical History: Liver Disease, Renal Disease Additional Family Medical History / Comment(s): father passed after a bout with pneumonia Medications and Allergies Home Medications Medication Instructions Recorded Confirmed Type Mirtazapine 45 mg PO HS 04/01/14 09/03/22 History QUEtiapine [SEROquel] 200 mg PO BID 04/01/14 09/03/22 History Spironolactone [Aldactone] 25 mg PO DAILY 04/01/14 09/03/22 History Montelukast [Singulair] 10 mg PO HS 07/20/14 09/03/22 History Apixaban [Eliquis] 5 mg PO BID 06/02/20 09/03/22 History Atorvastatin [Lipitor] 20 mg PO DAILY 06/02/20 09/03/22 History Nitroglycerin Sl Tabs [Nitrostat] 0.4 mg SL Q5M PRN 06/06/20 09/03/22 History Albuterol Inhaler [Ventolin Hfa 2 puff INHALATION RT-QID PRN 05/29/21 09/03/22 History Inhaler] Doxepin [SINEquan] 25 mg PO HS cap 06/06/21 09/03/22 Rx Fluticasone Nasal [place] [Flonase 1 spr EA NOSTRIL DAILY 06/16/21 09/03/22 History Nasal [place]] Amiodarone [Cordarone] 200 mg PO BID tab 10/27/21 09/03/22 Rx Aspirin 81 mg PO DAILY tab 10/27/21 09/03/22 Rx Clopidogrel [Plavix] 75 mg PO DAILY tab 10/27/21 09/03/22 Rx Furosemide [Lasix] 20 mg PO DAILY tab 10/27/21 09/03/22 Rx Tamsulosin [Flomax] 0.4 mg PO BID cap 10/27/21 09/03/22 Rx Multivitamins, Thera [Multivitamin 1 tab PO DAILY 05/31/22 09/03/22 History (formulary)] Pantoprazole [Protonix] 40 mg PO DAILY 05/31/22 09/03/22 History Ergocalciferol (Vitamin D2) 1,250 mcg PO TH 09/03/22 09/03/22 History [Drisdol (50,000 Iu)] Fluticasone/Umeclidin/Vilanter 1 puff INHALATION RT-DAILY 09/03/22 09/03/22 History [Shireen Ellipta 100-62.5-25] Allergies Allergy/AdvReac Type Severity Reaction Status Date / Time Barbiturates Allergy Anaphylaxis Verified 09/03/22 22:31 levofloxacin [From Levaquin] Allergy Dyspnea & Verified 09/03/22 22:31 Leg Swelling and Pain & Headache Physical Exam Vitals: Vital Signs Temp Pulse Resp BP Pulse Ox 09/04/22 06:00 68 21 139/91 98 09/04/22 05:00 67 19 144/94 99 09/04/22 04:00 70 22 145/93 98 09/04/22 03:00 70 19 150/90 98 09/04/22 02:00 73 158/98 97 09/04/22 01:00 74 142/107 97 09/04/22 00:00 74 163/98 98 09/03/22 23:24 75 22 163/98 98 09/03/22 23:00 75 98 09/03/22 22:12 176/101 94 L 09/03/22 22:00 69 20 159/97 99 09/03/22 16:01 98.2 F 82 24 146/85 99 Intake and Output 09/03/22 09/04/22 09/04/22 22:59 06:59 14:59 Other: Weight 95.254 kg Results 09/03/22 16:20 09/03/22 16:20 Cardiac Enzymes 09/03/22 09/03/22 Range/Units 16:20 16:20 AST 35 (17-59) U/L Troponin I 0.024 (0.000-0.034) ng/mL Coagulation 09/03/22 Range/Units 16:20 PT 9.7 (9.0-12.0) sec APTT 24.5 (22.0-30.0) sec CBC 09/03/22 Range/Units 16:20 WBC 6.8 (3.8-10.6) k/uL RBC 4.31 (4.30-5.90) m/uL Hgb 10.7 L (13.0-17.5) gm/dL Hct 34.4 L (39.0-53.0) % Plt Count 340 (150-450) k/uL Comprehensive Metabolic Panel 09/03/22 Range/Units 16:20 Sodium 137 (137-145) mmol/L Potassium 3.7 (3.5-5.1) mmol/L Chloride 103 (98-107) mmol/L Carbon Dioxide 24 (22-30) mmol/L BUN 20 (9-20) mg/dL Creatinine 1.33 H (0.66-1.25) mg/dL Glucose 110 H (74-99) mg/dL Calcium 9.3 (8.4-10.2) mg/dL AST 35 (17-59) U/L ALT 42 (4-49) U/L Alkaline Phosphatase 105 (38-126) U/L Total Protein 7.5 (6.3-8.2) g/dL Albumin 4.5 (3.5-5.0) g/dL Current Medications Generic Name Dose Route Start Last Admin Trade Name Freq PRN Reason Stop Dose Admin Naloxone HCl 0.2 mg 09/03/22 22:15 Naloxone 0.4 Mg/Ml 1 Ml Vial IV Q2M PRN Opioid Reversal Intake and Output 09/03/22 09/04/22 09/04/22 22:59 06:59 14:59 Other: Weight 95.254 kg 09/03/22 16:20 09/03/22 16:20
[2022-09-04] MEDS: DAPAGLIFLOZIN PROPANEDIOL 10 MG TABLET PO SCH (13:04)
[2022-09-04] MEDS: SACUBITRIL/VALSARTAN 24 MG-26 MG TABLET PO SCH ×2 (13:04→20:31)
[2022-09-04] MEDS ORDERED: IPRATROPIUM-ALBUTEROL 3 ML NEB INHALATION PRN (14:17)
--- NOTE | 2022-09-04 14:17 | P.CNPUL ---
History of Present Illness Consult date: 09/04/22 Requesting physician: Roxanna Patel Reason for consult: dyspnea, asthma Chief complaint: Shortness of breath, cough, congestion History of present illness: This is a pleasant 72-year-old male patient who has a history of coronary artery disease with previous stent placement, ischemic cardiomyopathy status post AICD/permanent pacemaker implantation, atrial fibrillation anticoagulated with Eliquis, hyperlipidemia, hypertension, chronic bronchial asthma, smoking just an occasional cigar. He had been having issues with increasing shortness of breath cough and congestion for approximately 6 months now. He had been seen in our office by Dr. Cedeño and initiated on Trilogy and 2 rounds of prednisone taper and antibiotics. Not much improvement. Chest x-ray at that time showed no acute pulmonary process. He was seen by his PCP who also gave him a round of antibiotics and steroids without much improvement. He presented here to the emergency room yesterday for the same. He is seen today in consultation in the emergency department. He is currently sitting up in a stretcher. Awake and alert in no acute distress. Maintaining O2 saturations in the upper 90s on 1 L/m per nasal cannula. Afebrile. Hemodynamically stable. He does have a loose productive cough of clear phlegm production. Chest x-ray again shows no acute cardiopulmonary process. EKG reveals sinus rhythm. White count 6.8. Hemoglobin 10.7. Platelet count 340. Sodium 137. Potassium 3.7. Bicarb 24. BUN 20. Creatinine 1.33. Glucose 110. Troponin negative 2. ProBNP 60. Review of Systems REVIEW OF SYSTEMS: CONSTITUTIONAL: Denies any recent significant weight loss or weight gain. EYES: Denies change in vision. EARS, NOSE, MOUTH, THROAT: Denies headaches, denies sore throat. CARDIOVASCULAR: Denies chest pain, palpitations or syncopal episodes. RESPIRATORY: Positive for shortness of breath, cough, congestion no hemoptysis. GASTROINTESTINAL: Denies change in appetite, denies abdominal pain GENITOURINARY: Denies hematuria, denies infections. MUSKULOSKELETAL: Denies pain, denies swelling. INTEGUMENTARY: Denies rash, denies eczema. NEUROLOGICAL: Denies recent memory loss, no recent seizure activity. PSYCHIATRIC: Denies anxiety, denies depression. HEMATOLOGIC/LYMPHATIC: Denies anemia, denies enlarged lymph nodes. 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 Stovall, gout bilateral feet, occasional numbness L leg/L great toe, hx of PHIL with CPAP but no longer an issue since wt. 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 History of Any Multi-Drug Resistant Organisms: None Reported Past Surgical History: AICD, Cholecystectomy, Heart Catheterization, Heart Catheterization With Stent, Hernia Repair, Pacemaker, Tonsillectomy Additional Past Surgical History / Comment(s): 07/24/14 EGD/colonoscopy with polypectomy/bx, 2005 AICD/2014 AICD changed to medtronic, 2002 Cardiac stent in [place], 2007 cardiac cath [facility], upper teeth extracted for denture, L ear has tube, R ear plugged, cyst removed L eyelid, bilateral cataract removal, L ganglion cyst removal, L/R inguinal hernia repairs with mesh, penile implant. Past Anesthesia/Blood Transfusion Reactions: No Reported Reaction Date of Last Stent Placement:: 2002 Type of Cardiac Device: AICD Device Placement Date:: 2014 Past Psychological History: Anxiety, Depression Smoking Status: Former smoker Past Alcohol Use History: None Reported Past Drug Use History: None Reported - Past Family History Father Family Medical History: Coronary Artery Disease (CAD), Pneumonia Additional Family Medical History / Comment(s): Father of pneumonia at the age of 82 yrs. Mother Family Medical History: Liver Disease, Renal Disease Additional Family Medical History / Comment(s): father passed after a bout with pneumonia Medications and Allergies Home Medications Medication Instructions Recorded Confirmed Type Mirtazapine 45 mg PO HS 04/01/14 09/03/22 History QUEtiapine [SEROquel] 200 mg PO BID 04/01/14 09/03/22 History Spironolactone [Aldactone] 25 mg PO DAILY 04/01/14 09/03/22 History Montelukast [Singulair] 10 mg PO HS 07/20/14 09/03/22 History Apixaban [Eliquis] 5 mg PO BID 06/02/20 09/03/22 History Atorvastatin [Lipitor] 20 mg PO DAILY 06/02/20 09/03/22 History Nitroglycerin Sl Tabs [Nitrostat] 0.4 mg SL Q5M PRN 06/06/20 09/03/22 History Albuterol Inhaler [Ventolin Hfa 2 puff INHALATION RT-QID PRN 05/29/21 09/03/22 History Inhaler] Doxepin [SINEquan] 25 mg PO HS cap 06/06/21 09/03/22 Rx Fluticasone Nasal [place] [Flonase 1 spr EA NOSTRIL DAILY 06/16/21 09/03/22 History Nasal [place]] Amiodarone [Cordarone] 200 mg PO BID tab 10/27/21 09/03/22 Rx Aspirin 81 mg PO DAILY tab 10/27/21 09/03/22 Rx Clopidogrel [Plavix] 75 mg PO DAILY tab 10/27/21 09/03/22 Rx Furosemide [Lasix] 20 mg PO DAILY tab 10/27/21 09/03/22 Rx Tamsulosin [Flomax] 0.4 mg PO BID cap 10/27/21 09/03/22 Rx Multivitamins, Thera [Multivitamin 1 tab PO DAILY 05/31/22 09/03/22 History (formulary)] Pantoprazole [Protonix] 40 mg PO DAILY 05/31/22 09/03/22 History Ergocalciferol (Vitamin D2) 1,250 mcg PO TH 09/03/22 09/03/22 History [Drisdol (50,000 Iu)] Fluticasone/Umeclidin/Vilanter 1 puff INHALATION RT-DAILY 09/03/22 09/03/22 History [Trelegy Ellipta 100-62.5-25] Allergies Allergy/AdvReac Type Severity Reaction Status Date / Time Barbiturates Allergy Anaphylaxis Verified 09/03/22 22:31 levofloxacin [From Levaquin] Allergy Dyspnea & Verified 09/03/22 22:31 Leg Swelling and Pain & Headache Physical Exam Vitals: Vital Signs Temp Pulse Pulse Resp BP BP Pulse Ox 09/04/22 13:02 64 18 161/85 98 09/04/22 09:29 98.5 F 66 16 152/98 98 09/04/22 06:00 68 21 139/91 98 09/04/22 05:00 67 19 144/94 99 09/04/22 04:00 70 22 145/93 98 09/04/22 03:00 70 19 150/90 98 09/04/22 02:00 73 158/98 97 09/04/22 01:00 74 142/107 97 09/04/22 00:00 74 163/98 98 09/03/22 23:24 75 22 163/98 98 09/03/22 23:00 75 98 09/03/22 22:12 176/101 94 L 09/03/22 22:00 69 20 159/97 99 09/03/22 16:01 98.2 F 82 24 146/85 99 Intake and Output 09/03/22 09/04/22 09/04/22 22:59 06:59 14:59 Other: Voiding Method Urinal Weight 95.254 kg GENERAL EXAM: Alert, oriented, pleasant 72-year-old male, on 1 L nasal cannula, comfortable in no apparent distress. HEAD: Normocephalic. EYES: Normal reaction of pupils, equal size. NOSE: Clear with pink turbinates. THROAT: No erythema or exudates. NECK: No masses, no JVD. CHEST: No chest wall deformity. LUNGS: Equal air entry with faint end expiratory wheeze. CVS: S1 and S2 normal with no audible murmur, regular rhythm. ABDOMEN: No hepatosplenomegaly, normal bowel sounds, no guarding or rigidity. SPINE: No scoliosis or deformity SKIN: No rashes CENTRAL NERVOUS SYSTEM: No focal deficits, tone is normal in all 4 extremities. EXTREMITIES: There is no peripheral edema. No clubbing, no cyanosis. Peripheral pulses are intact. Results - Laboratory Findings CBC and BMP: 09/03/22 16:20 09/03/22 16:20 PT/INR, D-dimer PT 9.7 sec (9.0-12.0) 09/03/22 16:20 INR 0.9 (<1.2) 09/03/22 16:20 Abnormal lab findings: Abnormal Labs 09/03/22 09/03/22 16:20 16:20 Hgb 10.7 L Hct 34.4 L MCV 79.8 L MCH 24.8 L RDW 17.8 H Creatinine 1.33 H Glucose 110 H - Diagnostic Findings Chest x-ray: image reviewed (No acute cardiopulmonary process) Assessment and Plan Assessment: Acute exacerbation of mild intermittent chronic bronchial asthma. Failed outpatient treatment Occasional cigar smoking, otherwise nonsmoker of cigarettes Coronary artery disease with previous stent placement Paroxysmal atrial fibrillation anti-coagulated with Eliquis Ischemic cardiomyopathy status post AICD placement History of hypertension Hyperlipidemia Hearing disorder History of CVA/TIA History of iron deficiency anemia History of gout Plan: The patient was seen and evaluated Chest x-ray, labs and medications reviewed Initiate DuoNeb inhalations, Symbicort Initiate IV Solu-Medrol Titrate the FiO2 as tolerated We will continue to follow and make further recommendations based on his clinical status I have personally seen and examined the patient, performed the documentation and the assessment and plan as written. Number of minutes spent on the visit: 20.
[2022-09-04] MEDS: methylPREDNISolone SOD SUCCI 125 MG/2 ML VIAL IV SCH (17:05)
[2022-09-04] MEDS: IPRATROPIUM-ALBUTEROL 3 ML NEB INHALATION SCH ×2 (18:54→21:03)
[2022-09-04] MEDS ORDERED: SYMBICORT 160-4.5 MCG INHALER INHALATION SCH (20:00)
[2022-09-05] MEDS: methylPREDNISolone SOD SUCCI 125 MG/2 ML VIAL IV SCH ×4 (00:06→17:02)
[2022-09-05 05:52] LABS: Anisocytosis Slight; HCT 34.8 % (39.0-53.0); HGB 10.6 gm/dL (13.0-17.5); Hypochromasia Moderate; MCH 24.7 pg (25.0-35.0); MCHC 30.6 g/dL (31.0-37.0); MCV 80.6 fL (80.0-100.0); Mean Platelet Volume 7.8; Microcytosis Slight; Platelet Count 432 k/uL (150-450); RBC 4.31 m/uL (4.30-5.90); RDW 17.9 % (11.5-15.5); WBC 7.8 k/uL (3.8-10.6)
[2022-09-05 05:58] LABS: African American GFR (CKD) 67 (>60 ml/min/1.73 sqM); Anion Gap 10 mmol/L; Blood Urea Nitrogen 19 mg/dL (9-20); Calcium 9.6 mg/dL (8.4-10.2); Carbon Dioxide 27 mmol/L (22-30); Chloride 99 mmol/L (98-107); Glucose 129 mg/dL (74-99); Non-African American GFR(CKD) 58 (>60 ml/min/1.73 sqM); Potassium 4.3 mmol/L (3.5-5.1); Sodium 136 mmol/L (137-145)
[2022-09-05] MEDS: FORMOTEROL FUMARATE 20 MCG/2 ML NEBU INHALATION SCH ×2 (08:02→21:14)
[2022-09-05] MEDS: IPRATROPIUM-ALBUTEROL 3 ML NEB INHALATION SCH ×4 (08:03→21:14)
[2022-09-05] MEDS: DAPAGLIFLOZIN PROPANEDIOL 10 MG TABLET PO SCH (08:26)
[2022-09-05] MEDS: FUROSEMIDE 20 MG TAB PO SCH (08:26)
[2022-09-05] MEDS: SPIRONOLACTONE 25 MG TAB PO SCH (08:26)
[2022-09-05] MEDS: ASPIRIN 81 MG PO SCH (08:26)
[2022-09-05] MEDS: ATORVASTATIN 20 MG TAB PO SCH (08:26)
[2022-09-05] MEDS: APIXABAN 5 MG TAB PO SCH ×2 (08:26→20:47)
[2022-09-05] MEDS: AMIODARONE 200 MG TAB PO SCH (08:27)
[2022-09-05] MEDS: SACUBITRIL/VALSARTAN 24 MG-26 MG TABLET PO SCH ×2 (08:27→20:47)
[2022-09-05] MEDS: PANTOPRAZOLE 40 MG TABLET PO SCH ×2 (08:29→17:02)
--- NOTE | 2022-09-05 10:26 | P.PN ---
Subjective Progress Note Date: 09/05/22 This is a 72-year-old male patient of Dr. Monsalve with history of CAD with previous PCI, ischemic cardiomyopathy with AICD in 2013, hypertension, hyperlipidemia, paroxysmal atrial fibrillation on anticoagulation, and GI bleed with colonoscopy showing likely diverticulitis and external hemorrhoids and anticoagulation has been resumed with no recurrence. He was evaluted for possible GI surgery but was not cleared by pulmonary and cardiology secondary to high risk. Patient states he presented to the emergency center due to cough with sputum production and shortness breath that has been going on for the past 6 months it has been treated with prednisone and antibiotics with no improvement. He complains of chest pain that has been going on for 3 weeks it hurts when he coughs and takes a deep breath. He also complains of dizziness and rubbery feeling legs. Patient denies having any fever. He states he has some sweating around his throat. No nausea or vomiting. No rectal bleeding, no blood in his urine. Blood pressure this morning 152/98. Telemetry is a sinus rhythm. Patient is seen in the emergency center waiting for a bed on the observation unit. EKG reveals sinus rhythm, heart rate 77 Chest x-ray: No acute cardiopulmonary disease process. WBC 6.8, hemoglobin 10.7, platelet count 340. INR 0.9. Sodium 137, potassium 3.7, chloride 103, CO2 24, BUN 20 creatinine 1.33. Liver function tests are normal. Troponin 0.0-4. Echocardiogram 09/2021 revealed EF less than 15%. Moderate pulmonary hypertension, mild mitral and tricuspid regurgitation and dilated duration of the ascending aorta and question of some flow into the RV at the level of the sinus of Vansalva. Cardiac catheterization 09/2021 by FR measurement of moderate proximal RCA lesion and PTCA and stenting of the proximal RCA and PTCA of the mid stent restenosis lesion with a high pressure noncompliant balloon. Home cardiac medications: Amiodarone 200 mg twice daily, eliquis 5 mg twice daily, aspirin 81 mg daily, Lipitor 20 mg daily, Plavix 75 mg daily, Lasix 20 mg daily, Aldactone 25 mg daily. 09/05 Patient is seen today on the observation unit. He has been seen by pulmonary medicine for asthma exacerbation and he states that his breathing is improving. He states that he woke at 3 AM and had a large amount of phlegm production that was white and following that his breathing was improved. He did feel some acid reflux following the coughing episode. Patient is tolerating the new medications with stable blood pressure. Heart rate has been in the 70s and 80s, blood pressure 154/82, pulse ox 99% on 1-1/2 L oxygen. Telemetry is sinus rhythm. Repeat blood work reveals hemoglobin of 10.6. Sodium 136, blood sugar 129. Pro-calcitonin was high at 0.2. Echocardiogram PHYSICAL EXAMINATION CONSTITUTIONAL: No apparent distress. HEENT: Head is normocephalic. Pupils are equal, round. Sclerae anicteric. Mucous membranes of the mouth are moist. No JVD. CHEST EXAMINATION: Lungs are diminished with scattered rhonchi. HEART EXAMINATION: Regular rate and rhythm. S1, S2 heard. Systolic murmur at left sternal border. ABDOMEN: Soft, nontender. Positive bowel sounds. EXTREMITIES: 2+ peripheral pulses, no lower extremity edema and no calf tenderness. NEUROLOGIC EXAMINATION: Patient is awake, alert and oriented x3. ASSESSMENT Chest pain with cough and deep breathing appears to be related to pulmonary issues Chronic cough and sputum production History of Ventricular tachycardia with AICD CAD with previous PCI to the RCA in 2002, PTCA and stenting of the RCA in 2021 and PTCA of the mid stent restenosis lesion 2021 Ischemic cardiomyopathy with AICD in 2012 Hypertension Hyperlipidemia Paroxysmal atrial fibrillation on Eliquis History of diverticulitis Anemia Chronic kidney disease stage III PLAN Obtain 2D echocardiogram and doppler study to assess cardiac structure and function. Resume patient's home cardiac medications with the following changes: Decrease amiodarone to once daily Start patient on Farxiga 10 mg daily and Entresto 2426 milligram one twice daily Further recommendations as patient progresses Nurse practitioner note has been reviewed by physician. Signing provider agrees with the documented findings, assessment, and plan of care. Objective - Vital Signs Vital signs: Vital Signs Temp 98.6 F 09/05/22 07:00 Pulse 80 09/05/22 08:25 Resp 22 09/05/22 07:00 BP 154/82 09/05/22 07:00 Pulse Ox 98 09/05/22 08:03 FiO2 Intake & Output 09/04/22 09/05/22 09/05/22 18:59 06:59 18:59 Output Total 1300 230 Balance -1300 -230 Weight 95.254 kg Output: Urine 1300 230 Other: Voiding Method Urinal Urinal - Labs CBC & Chem 7: 09/05/22 05:13 09/05/22 05:13 Labs: Abnormal Lab Results - Last 24 Hours (Table) 09/04/22 09/05/22 09/05/22 Range/Units 14:44 05:13 05:13 Hgb 10.6 L (13.0-17.5) gm/dL Hct 34.8 L (39.0-53.0) % MCH 24.7 L (25.0-35.0) pg MCHC 30.6 L (31.0-37.0) g/dL RDW 17.9 H (11.5-15.5) % Sodium 136 L (137-145) mmol/L Glucose 129 H (74-99) mg/dL Procalcitonin 0.20 H (0.02-0.09) ng/mL
--- NOTE | 2022-09-05 10:28 | P.PN ---
Subjective Progress Note Date: 09/05/22 This is a pleasant 72-year-old male patient who has a history of coronary artery disease with previous stent placement, ischemic cardiomyopathy status post AICD/permanent pacemaker implantation, atrial fibrillation anticoagulated with Eliquis, hyperlipidemia, hypertension, chronic bronchial asthma, smoking just an occasional cigar. He had been having issues with increasing shortness of breath cough and congestion for approximately 6 months now. He had been seen in our office by Dr. Cedeño and initiated on Trilogy and 2 rounds of prednisone taper and antibiotics. Not much improvement. Chest x-ray at that time showed no acute pulmonary process. He was seen by his PCP who also gave him a round of antibiotics and steroids without much improvement. He presented here to the emergency room yesterday for the same. He is seen today in consultation in the emergency department. He is currently sitting up in a stretcher. Awake and alert in no acute distress. Maintaining O2 saturations in the upper 90s on 1 L/m per nasal cannula. Afebrile. Hemodynamically stable. He does have a loose productive cough of clear phlegm production. Chest x-ray again shows no acute cardiopulmonary process. EKG reveals sinus rhythm. White count 6.8. Hemoglobin 10.7. Platelet count 340. Sodium 137. Potassium 3.7. Bicarb 24. BUN 20. Creatinine 1.33. Glucose 110. Troponin negative 2. ProBNP 60. The patient is seen today 09/05/2022 in follow-up on the regular medical floor. He is currently sitting up in bed. Awake and alert in no acute distress. Continues with a loose productive cough of clear sputum. No fever chills. No hemoptysis. Maintaining good O2 saturations in the 90s on 1 L/m per nasal cannula. He's afebrile. Hemodynamically stable. White count 7.8. Hemoglobin 10.6. Platelets 432. Sodium 136. Potassium 4.3. BUN 19. Creatinine 1.24. Glucose 129. Pro-calcitonin 0.20. He is continued on DuoNeb inhalations, Pulmicort and Perforomist inhalations, IV Solu-Medrol. Objective - Vital Signs Vital signs: Vital Signs Temp 98.6 F 09/05/22 07:00 Pulse 80 09/05/22 08:25 Resp 22 09/05/22 08:00 BP 154/82 09/05/22 07:00 Pulse Ox 98 09/05/22 08:03 FiO2 Intake & Output 09/04/22 09/05/22 09/05/22 18:59 06:59 18:59 Intake Total 118 Output Total 1300 230 Balance -1300 -112 Weight 95.254 kg Intake: Oral 118 Output: Urine 1300 230 Other: Voiding Method Urinal Urinal Urinal - Exam GENERAL EXAM: Alert, pleasant 72-year-old male, on 1 L nasal cannula, comfortable in no apparent distress. HEAD: Normocephalic. EYES: Normal reaction of pupils, equal size. NOSE: Clear with pink turbinates. THROAT: No erythema or exudates. NECK: No masses, no JVD. CHEST: No chest wall deformity. LUNGS: Equal air entry with faint end expiratory wheeze. CVS: S1 and S2 normal with no audible murmur, regular rhythm. ABDOMEN: No hepatosplenomegaly, normal bowel sounds, no guarding or rigidity. SPINE: No scoliosis or deformity SKIN: No rashes CENTRAL NERVOUS SYSTEM: No focal deficits, tone is normal in all 4 extremities. EXTREMITIES: There is no peripheral edema. No clubbing, no cyanosis. Peripheral pulses are intact. - Labs CBC & Chem 7: 09/05/22 05:13 09/05/22 05:13 Labs: Abnormal Lab Results - Last 24 Hours (Table) 09/04/22 09/05/22 09/05/22 Range/Units 14:44 05:13 05:13 Hgb 10.6 L (13.0-17.5) gm/dL Hct 34.8 L (39.0-53.0) % MCH 24.7 L (25.0-35.0) pg MCHC 30.6 L (31.0-37.0) g/dL RDW 17.9 H (11.5-15.5) % Sodium 136 L (137-145) mmol/L Glucose 129 H (74-99) mg/dL Procalcitonin 0.20 H (0.02-0.09) ng/mL Assessment and Plan Assessment: Acute exacerbation of mild intermittent chronic bronchial asthma. Failed outpatient treatment Occasional cigar smoking, otherwise nonsmoker of cigarettes Coronary artery disease with previous stent placement Paroxysmal atrial fibrillation anti-coagulated with Eliquis Ischemic cardiomyopathy status post AICD placement History of hypertension Hyperlipidemia Hearing disorder History of CVA/TIA History of iron deficiency anemia History of gout Plan: The patient was seen and evaluated Labs and medications reviewed Continue DuoNeb, Pulmicort and Perforomist inhalations Continue IV Solu-Medrol Procalcitonin 0.20 Add Augmentin Titrate the FiO2 as tolerated We will continue to follow I have personally seen and examined the patient, performed the documentation and the assessment and plan as written. Number of minutes spent on the visit: 10.
--- NOTE | 2022-09-05 10:32 | P.HPIM ---
History of Present Illness H&P Date: 09/04/22 Rayray Stewart, he is a 72-year-old male who presented to [facility] emergency room with a chief complaint of chest pain, patient also thinks that his defibrillator has fired prior to admission. He was evaluated in the emergency room vital examination on presentation revealed a temperature of 98.2 pulse 82 respiration 24 blood pressure 146/85 pulse ox 99% on room air Laboratory data revealed a white blood count of 6.8 hemoglobin 10.7 platelet count 340 sodium 137 potassium 3.7 chloride 103 CO2 24 BUN 20 creatinine 1.33 troponin level was 0.0-4 he troponin 0.2 Testing in the emergency room revealed chest x-ray done in the emergency room revealed no acute cardiopulmonary process, EKG done in the emergency room revealed sinus rhythm with left axis deviation and left ventricular hypertrophy Patient was admitted to medical floor for further evaluation and treatment Past Medical History Past Medical History: Atrial Fibrillation, Asthma, Coronary Artery Disease (CAD), Heart Failure, COPD, CVA/TIA, GERD/Reflux, Hearing Disorder / Deafness, Hyperlipidemia, Hypertension, Pneumonia, Sleep Apnea/CPAP/BIPAP, Syncope Additional Past Medical History / Comment(s): Benign polyps removed, PVC's, cardiomyopathy, 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 Stovall, gout bilateral feet, occasional numbness L leg/L great toe, hx of PHIL with CPAP but no longer an issue since wt. 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 History of Any Multi-Drug Resistant Organisms: None Reported Past Surgical History: AICD, Cholecystectomy, Heart Catheterization, Heart Catheterization With Stent, Hernia Repair, Pacemaker, Tonsillectomy Additional Past Surgical History / Comment(s): 07/24/14 EGD/colonoscopy with polypectomy/bx, 2005 AICD/2014 AICD changed to medtronic, 2002 Cardiac stent in [place], 2007 cardiac cath [facility], upper teeth extracted for denture, L ear has tube, R ear plugged, cyst removed L eyelid, bilateral cataract removal, L ganglion cyst removal, L/R inguinal hernia repairs with mesh, penile implant. Past Anesthesia/Blood Transfusion Reactions: No Reported Reaction Date of Last Stent Placement:: 2002 Type of Cardiac Device: AICD Device Placement Date:: 2014 Past Psychological History: Anxiety, Depression Smoking Status: Former smoker Past Alcohol Use History: None Reported Past Drug Use History: None Reported - Past Family History Father Family Medical History: Coronary Artery Disease (CAD), Pneumonia Additional Family Medical History / Comment(s): Father of pneumonia at the age of 82 yrs. Mother Family Medical History: Liver Disease, Renal Disease Additional Family Medical History / Comment(s): father passed after a bout with pneumonia Medications and Allergies Home Medications Medication Instructions Recorded Confirmed Type Mirtazapine 45 mg PO HS 04/01/14 09/03/22 History QUEtiapine [SEROquel] 200 mg PO BID 04/01/14 09/03/22 History Spironolactone [Aldactone] 25 mg PO DAILY 04/01/14 09/03/22 History Montelukast [Singulair] 10 mg PO HS 07/20/14 09/03/22 History Apixaban [Eliquis] 5 mg PO BID 06/02/20 09/03/22 History Atorvastatin [Lipitor] 20 mg PO DAILY 06/02/20 09/03/22 History Nitroglycerin Sl Tabs [Nitrostat] 0.4 mg SL Q5M PRN 06/06/20 09/03/22 History Albuterol Inhaler [Ventolin Hfa 2 puff INHALATION RT-QID PRN 05/29/21 09/03/22 History Inhaler] Doxepin [SINEquan] 25 mg PO HS cap 06/06/21 09/03/22 Rx Fluticasone Nasal [place] [Flonase 1 spr EA NOSTRIL DAILY 06/16/21 09/03/22 History Nasal [place]] Amiodarone [Cordarone] 200 mg PO BID tab 10/27/21 09/03/22 Rx Aspirin 81 mg PO DAILY tab 10/27/21 09/03/22 Rx Clopidogrel [Plavix] 75 mg PO DAILY tab 10/27/21 09/03/22 Rx Furosemide [Lasix] 20 mg PO DAILY tab 10/27/21 09/03/22 Rx Tamsulosin [Flomax] 0.4 mg PO BID cap 10/27/21 09/03/22 Rx Multivitamins, Thera [Multivitamin 1 tab PO DAILY 05/31/22 09/03/22 History (formulary)] Pantoprazole [Protonix] 40 mg PO DAILY 05/31/22 09/03/22 History Ergocalciferol (Vitamin D2) 1,250 mcg PO TH 09/03/22 09/03/22 History [Drisdol (50,000 Iu)] Fluticasone/Umeclidin/Vilanter 1 puff INHALATION RT-DAILY 09/03/22 09/03/22 History [Trelekenneth Ellipta 100-62.5-25] Allergies Allergy/AdvReac Type Severity Reaction Status Date / Time Barbiturates Allergy Anaphylaxis Verified 09/03/22 22:31 levofloxacin [From Levaquin] Allergy Dyspnea & Verified 09/03/22 22:31 Leg Swelling and Pain & Headache Physical Exam Vitals: Vital Signs Temp Pulse Resp BP Pulse Ox 09/04/22 06:00 68 21 139/91 98 09/04/22 05:00 67 19 144/94 99 09/04/22 04:00 70 22 145/93 98 09/04/22 03:00 70 19 150/90 98 09/04/22 02:00 73 158/98 97 09/04/22 01:00 74 142/107 97 09/04/22 00:00 74 163/98 98 09/03/22 23:24 75 22 163/98 98 09/03/22 23:00 75 98 09/03/22 22:12 176/101 94 L 09/03/22 22:00 69 20 159/97 99 09/03/22 16:01 98.2 F 82 24 146/85 99 Intake and Output 09/03/22 09/04/22 09/04/22 22:59 06:59 14:59 Other: Weight 95.254 kg In general patient is alert and oriented x 3 in no distress HEENT head normocephalic and atraumatic Neck is supple no JVD no goiter no lymphadenopathy no carotid bruit Chest examination is clear to auscultation no crackles no wheezing Cardiac exam reveals regular heart sounds S1 and S2 no gallops no murmurs Abdomen is soft nontender no organomegaly with normal bowel sounds Extremity exam reveals no edema no cyanosis or clubbing Neurological examination reveals no gross focal deficits Results CBC & Chem 7: 09/05/22 05:13 09/05/22 05:13 Labs: Abnormal Lab Results - Last 24 Hours (Table) 09/03/22 09/03/22 Range/Units 16:20 16:20 Hgb 10.7 L (13.0-17.5) gm/dL Hct 34.4 L (39.0-53.0) % MCV 79.8 L (80.0-100.0) fL MCH 24.8 L (25.0-35.0) pg RDW 17.8 H (11.5-15.5) % Creatinine 1.33 H (0.66-1.25) mg/dL Glucose 110 H (74-99) mg/dL Assessment and Plan Plan: Episode of chest pain and shortness of breath Patient feeling that his AICD may have fired Underlying history of coronary artery disease with history of angioplasty and stent placement to the RCA in 2021 Underlying history of ischemic cardiomyopathy with AICD placement in 2012 Underlying history of hypertension Underlying history of hyperlipidemia Underlying history of chronic kidney disease stage III Underlying history of paroxysmal atrial fibrillation maintained on Eliquis At this time patient will be admitted to telemetry floor Home medications reviewed and reordered Echocardiogram ordered cardiology consultation was requested Also pulmonary consultation requested regarding shortness of breath Will follow closely
[2022-09-05] MEDS: BENZONATATE 100 MG CAP PO SCH ×3 (10:36→20:47)
--- NOTE | 2022-09-05 10:55 | P.PN ---
Subjective Progress Note Date: 09/05/22 Rayray Stewart, he is a 72-year-old male who presented to [facility] emergency room with a chief complaint of chest pain, patient also thinks that his defibrillator has fired prior to admission. He was evaluated in the emergency room vital examination on presentation revealed a temperature of 98.2 pulse 82 respiration 24 blood pressure 146/85 pulse ox 99% on room air Laboratory data revealed a white blood count of 6.8 hemoglobin 10.7 platelet count 340 sodium 137 potassium 3.7 chloride 103 CO2 24 BUN 20 creatinine 1.33 troponin level was 0.0-4 he troponin 0.2 Testing in the emergency room revealed chest x-ray done in the emergency room revealed no acute cardiopulmonary process, EKG done in the emergency room revealed sinus rhythm with left axis deviation and left ventricular hypertrophy Patient was admitted to medical floor for further evaluation and treatment On 09/05/2022 patient is alert and oriented 3. Patient reports some improvement. Patient remains on IV Solu-Medrol medication adjusted per cardiology including initiation of entresto. Discussed with cardiology nurse practitioner that patient reported he felt his AICD fire off to PCP in office. Patient denies chest pain or shortness breath. Patient denies nausea vomiting or diarrhea. Patient denies any urinary burning or frequency Objective - Vital Signs Vital signs: Vital Signs Temp 98.6 F 09/05/22 07:00 Pulse 82 09/05/22 10:31 Resp 22 09/05/22 08:00 BP 154/82 09/05/22 07:00 Pulse Ox 99 09/05/22 10:31 FiO2 Intake & Output 09/04/22 09/05/22 09/05/22 18:59 06:59 18:59 Intake Total 118 Output Total 1300 230 Balance -1300 -112 Weight 95.254 kg Intake: Oral 118 Output: Urine 1300 230 Other: Voiding Method Urinal Urinal Urinal - Exam In general patient is alert and oriented x 3 in no distress HEENT head normocephalic and atraumatic Neck is supple no JVD no goiter no lymphadenopathy no carotid bruit Chest examination is clear to auscultation no crackles no wheezing Cardiac exam reveals regular heart sounds S1 and S2 no gallops no murmurs Abdomen is soft nontender no organomegaly with normal bowel sounds Extremity exam reveals no edema no cyanosis or clubbing Neurological examination reveals no gross focal deficits - Labs CBC & Chem 7: 09/05/22 05:13 09/05/22 05:13 Labs: Abnormal Lab Results - Last 24 Hours (Table) 09/04/22 09/05/22 09/05/22 Range/Units 14:44 05:13 05:13 Hgb 10.6 L (13.0-17.5) gm/dL Hct 34.8 L (39.0-53.0) % MCH 24.7 L (25.0-35.0) pg MCHC 30.6 L (31.0-37.0) g/dL RDW 17.9 H (11.5-15.5) % Sodium 136 L (137-145) mmol/L Glucose 129 H (74-99) mg/dL Procalcitonin 0.20 H (0.02-0.09) ng/mL Assessment and Plan Plan: Episode of chest pain and shortness of breath Patient feeling that his AICD may have fired Underlying history of coronary artery disease with history of angioplasty and stent placement to the RCA in 2021 Underlying history of ischemic cardiomyopathy with AICD placement in 2012 Underlying history of hypertension Underlying history of hyperlipidemia Underlying history of chronic kidney disease stage III Underlying history of paroxysmal atrial fibrillation maintained on Eliquis At this time patient will be admitted to telemetry floor Home medications reviewed and reordered Echocardiogram ordered cardiology consultation was requested Also pulmonary consultation requested regarding shortness of breath Will follow closely
[2022-09-05] MEDS: AMOXIC-POT CLAV 875-125MG 1 EACH TAB PO SCH ×2 (12:32→20:47)
--- NOTE | 2022-09-05 19:18 | CA ---
Transthoracic Echo Report Name: Rayray Stewart Age: 72 Gender: M : 1950 Exam Date: 09/05/2022 13:16 Exam Location: [facility] Ht (in): 74 Wt (lb): 210 Ordering Physician: Jennifer Broussard Attending/Referring Phys: [id number], Bobo Car Stower Virgen Alva [facility] Procedure CPT: Indications: LVF Cardiac Hx: Technical Quality: Fair Contrast 1: Total Dose (mL): Contrast 2: Total Dose (mL): MEASUREMENTS (Male / Female) Normal Values 2D ECHO LV Diastolic Diameter PLAX 5.4 cm 4.2 - 5.9 / 3.9 - 5.3 cm LV Systolic Diameter PLAX 4.6 cm IVS Diastolic Thickness 1.0 cm 0.6 - 1.0 / 0.6 - 0.9 cm LVPW Diastolic Thickness 1.5 cm 0.6 - 1.0 / 0.6 - 0.9 cm LV Relative Wall Thickness 0.5 RV Internal Dim ED PLAX 3.2 cm LV Diastolic Volume MOD BP 123.2 cm??? 67 - 155 / 56 - 104 cm??? LV Systolic Volume MOD BP 72.9 cm??? 22 - 58 / 19 - 49 cm??? LV Ejection Fraction MOD BP 40.9 % >= 55 % LV Cardiac Index MOD BP 1706.6 cm???/min???m??? LV Diastolic Volume MOD 4C 134.4 cm??? LV Systolic Volume MOD 4C 83.7 cm??? LV Ejection Fraction MOD 4C 37.7 % LV Cardiac Index MOD 4C 1719.5 cm???/min???m??? LV Diastolic Length 4C 8.7 cm LV Systolic Length 4C 7.3 cm LV Diastolic Volume MOD 2C 103.6 cm??? LV Systolic Volume MOD 2C 55.9 cm??? LV Ejection Fraction MOD 2C 46.1 % LV Cardiac Index MOD 2C 1619.2 cm???/min???m??? LV Diastolic Length 2C 7.9 cm LV Systolic Length 2C 6.4 cm M-MODE Aortic Root Diameter MM 3.1 cm LA Systolic Diameter MM 3.6 cm LA Ao Ratio MM 1.1 AV Cusp Separation MM 2.3 cm DOPPLER AV Peak Velocity 186.0 cm/s AV Peak Gradient 13.8 mmHg AV Mean Velocity 121.2 cm/s AV Mean Gradient 6.6 mmHg AV Velocity Time Integral 31.9 cm AI Peak Velocity 443.7 cm/s AI Peak Gradient 78.8 mmHg AI Pressure Half Time 800.8 ms LVOT Peak Velocity 124.2 cm/s LVOT Peak Gradient 6.2 mmHg LVOT Velocity Time Integral 20.4 cm Mitral E Point Velocity 32.2 cm/s Mitral A Point Velocity 70.3 cm/s Mitral E to A Ratio 0.5 MV Deceleration Time 225.4 ms LV E' Lateral Velocity 3.9 cm/s Mitral E to LV E' Lateral Ratio 8.2 LV E' Septal Velocity 3.9 cm/s Mitral E to LV E' Septal Ratio 8.2 TR Peak Velocity 247.0 cm/s TR Peak Gradient 33.3 mmHg FINDINGS Left Ventricle Mildly increased left ventricular wall thickness. Moderately reduced global left ventricular systolic function. Left ventricular ejection fraction is estimated at 35 to 40 %. Right Ventricle Normal right ventricular size and function. Right Atrium Normal right atrial size. Left Atrium Normal left atrial size. Mitral Valve Structurally normal mitral valve. Mild mitral regurgitation. Mitral valve thickened. Aortic Valve Trileaflet aortic valve. [id number] aortic regurgitation.aortic valve sclerosis. Tricuspid Valve Structurally normal tricuspid valve. mild tricuspid regurgitation. Pulmonic Valve Structurally normal pulmonic valve. Mild pulmonic regurgitation. Pericardium No pericardial effusion. Aorta Normal size aortic root and proximal ascending aorta. CONCLUSIONS 1. Moderate to severe global hypokinesis of the left ventricle 2. Mild mitral and tricuspid regurgitation 3. Mild to moderate aortic regurgitation Previewed by: Dr. Andrew Skinner MD (Electronically Signed) Final Date: 05 September 2022 19:18
[2022-09-05] MEDS: BUDESONIDE 1 MG/2 ML NEBU INHALATION SCH (21:14)
[2022-09-06] MEDS: methylPREDNISolone SOD SUCCI 125 MG/2 ML VIAL IV SCH ×4 (00:10→17:39)
[2022-09-06] MEDS: PANTOPRAZOLE 40 MG TABLET PO SCH ×2 (05:50→17:39)
[2022-09-06 06:18] LABS: Anisocytosis Slight; Basophils % (A) 0 %; Eosinophils % (A) 0 %; HCT 34.3 % (39.0-53.0); HGB 10.2 gm/dL (13.0-17.5); Hypochromasia Moderate; Lymphocytes % (A) 7 %; MCHC 29.8 g/dL (31.0-37.0); MCV 80.5 fL (80.0-100.0); Mean Platelet Volume 7.7; Microcytosis Slight; Monocytes # (A) 0.4 k/uL (0-1.0); Monocytes % (A) 3 %; Neutrophils # (A) 11.5 k/uL (1.3-7.7); Neutrophils % (A) 89 %; Platelet Count 428 k/uL (150-450); RBC 4.26 m/uL (4.30-5.90); RDW 17.7 % (11.5-15.5)
[2022-09-06 06:35] LABS: ALT 36 U/L (4-49); AST 27 U/L (17-59); African American GFR (CKD) 75 (>60 ml/min/1.73 sqM); Albumin/Globulin Ratio 1.5; Alkaline Phosphatase 83 U/L (38-126); Anion Gap 7 mmol/L; Blood Urea Nitrogen 20 mg/dL (9-20); Calcium 9.3 mg/dL (8.4-10.2); Carbon Dioxide 27 mmol/L (22-30); Chloride 100 mmol/L (98-107); Globulin 2.7 g/dL; Glucose 130 mg/dL (74-99); Non-African American GFR(CKD) 65 (>60 ml/min/1.73 sqM); Potassium 4.7 mmol/L (3.5-5.1); Sodium 134 mmol/L (137-145); Total Bilirubin 0.3 mg/dL (0.2-1.3); Total Protein 6.7 g/dL (6.3-8.2)
[2022-09-06] MEDS: IPRATROPIUM-ALBUTEROL 3 ML NEB INHALATION SCH ×4 (07:46→19:22)
[2022-09-06] MEDS: FORMOTEROL FUMARATE 20 MCG/2 ML NEBU INHALATION SCH ×2 (07:46→19:22)
[2022-09-06] MEDS: BUDESONIDE 1 MG/2 ML NEBU INHALATION SCH ×2 (07:46→19:22)
[2022-09-06] MEDS: FUROSEMIDE 20 MG TAB PO SCH (08:31)
[2022-09-06] MEDS: BENZONATATE 100 MG CAP PO SCH ×3 (08:31→21:00)
[2022-09-06] MEDS: SPIRONOLACTONE 25 MG TAB PO SCH (08:31)
[2022-09-06] MEDS: SACUBITRIL/VALSARTAN 24 MG-26 MG TABLET PO SCH ×2 (08:31→21:00)
[2022-09-06] MEDS: ASPIRIN 81 MG PO SCH (08:31)
[2022-09-06] MEDS: AMIODARONE 200 MG TAB PO SCH (08:31)
[2022-09-06] MEDS: APIXABAN 5 MG TAB PO SCH ×2 (08:31→21:00)
[2022-09-06] MEDS: ATORVASTATIN 20 MG TAB PO SCH (08:31)
[2022-09-06] MEDS: DAPAGLIFLOZIN PROPANEDIOL 10 MG TABLET PO SCH (08:31)
[2022-09-06] MEDS: AMOXIC-POT CLAV 875-125MG 1 EACH TAB PO SCH ×2 (08:32→21:00)
--- NOTE | 2022-09-06 09:53 | P.PN ---
Subjective Progress Note Date: 09/06/22 This is a 72-year-old male patient of Dr. Monsalve with history of CAD with previous PCI, ischemic cardiomyopathy with AICD in 2013, hypertension, hyperlipidemia, paroxysmal atrial fibrillation on anticoagulation, and GI bleed with colonoscopy showing likely diverticulitis and external hemorrhoids and anticoagulation has been resumed with no recurrence. He was evaluted for possible GI surgery but was not cleared by pulmonary and cardiology secondary to high risk. Patient states he presented to the emergency center due to cough with sputum production and shortness breath that has been going on for the past 6 months it has been treated with prednisone and antibiotics with no improvement. He complains of chest pain that has been going on for 3 weeks it hurts when he coughs and takes a deep breath. He also complains of dizziness and rubbery feeling legs. Patient denies having any fever. He states he has some sweating around his throat. No nausea or vomiting. No rectal bleeding, no blood in his urine. Blood pressure this morning 152/98. Telemetry is a sinus rhythm. Patient is seen in the emergency center waiting for a bed on the observation unit. EKG reveals sinus rhythm, heart rate 77 Chest x-ray: No acute cardiopulmonary disease process. WBC 6.8, hemoglobin 10.7, platelet count 340. INR 0.9. Sodium 137, potassium 3.7, chloride 103, CO2 24, BUN 20 creatinine 1.33. Liver function tests are normal. Troponin 0.0-4. Echocardiogram 09/2021 revealed EF less than 15%. Moderate pulmonary hypertension, mild mitral and tricuspid regurgitation and dilated duration of the ascending aorta and question of some flow into the RV at the level of the sinus of Vansalva. Cardiac catheterization 09/2021 by FR measurement of moderate proximal RCA lesion and PTCA and stenting of the proximal RCA and PTCA of the mid stent restenosis lesion with a high pressure noncompliant balloon. Home cardiac medications: Amiodarone 200 mg twice daily, eliquis 5 mg twice daily, aspirin 81 mg daily, Lipitor 20 mg daily, Plavix 75 mg daily, Lasix 20 mg daily, Aldactone 25 mg daily. 09/05 Patient is seen today on the observation unit. He has been seen by pulmonary medicine for asthma exacerbation and he states that his breathing is improving. He states that he woke at 3 AM and had a large amount of phlegm production that was white and following that his breathing was improved. He did feel some acid reflux following the coughing episode. Patient is tolerating the new medications with stable blood pressure. Heart rate has been in the 70s and 80s, blood pressure 154/82, pulse ox 99% on 1-1/2 L oxygen. Telemetry is sinus rhythm. Repeat blood work reveals hemoglobin of 10.6. Sodium 136, blood sugar 129. Pro-calcitonin was high at 0.2. Echocardiogram 09/06 The patient is seen today in follow-up. He has less coughing and less shortness of breath today. He is scheduled for bronchoscopy tomorrow with Dr. Burdick. His heart rate has been in the 60s, blood pressure 147/79. Patient has tolerated Entresto well. Noted that he is not currently on a beta kris and this will be started now. Repeat blood work reveals hemoglobin of 10.2, BUN 20 creatinine 1.13, potassium 4.7. Echocardiogram reveals moderate to severe global hypokinesia of the left ventricle with EF of 35-40%, mild mitral and tricuspid regurgitation, mild to moderate aortic regurgitation PHYSICAL EXAMINATION CONSTITUTIONAL: No apparent distress. HEENT: Head is normocephalic. Pupils are equal, round. Sclerae anicteric. Mucous membranes of the mouth are moist. No JVD. CHEST EXAMINATION: Lungs are diminished with scattered rhonchi. HEART EXAMINATION: Regular rate and rhythm. S1, S2 heard. Systolic murmur at l eft sternal border. ABDOMEN: Soft, nontender. Positive bowel sounds. EXTREMITIES: 2+ peripheral pulses, no lower extremity edema and no calf tenderness. NEUROLOGIC EXAMINATION: Patient is awake, alert and oriented x3. ASSESSMENT Chest pain with cough and deep breathing appears to be related to pulmonary issues Chronic cough and sputum production History of Ventricular tachycardia with AICD CAD with previous PCI to the RCA in 2002, PTCA and stenting of the RCA in 2021 and PTCA of the mid stent restenosis lesion 2021 Ischemic cardiomyopathy with AICD in 2012 Hypertension Hyperlipidemia Paroxysmal atrial fibrillation on Eliquis History of diverticulitis Anemia Chronic kidney disease stage III PLAN Continue patient's home cardiac medications with the following changes: Decrease amiodarone to once daily Continue patient on Farxiga 10 mg daily and Entresto 2426 milligram one twice daily Start patient on Toprol 25 mg daily Further recommendations as patient progresses Nurse practitioner note has been reviewed by physician. Signing provider agrees with the documented findings, assessment, and plan of care. Objective - Vital Signs Vital signs: Vital Signs Temp 98.3 F 09/06/22 07:00 Pulse 68 09/06/22 08:07 Resp 18 09/06/22 07:00 BP 147/79 09/06/22 07:00 Pulse Ox 99 09/06/22 07:46 FiO2 Intake & Output 09/05/22 09/06/22 09/06/22 18:59 06:59 18:59 Intake Total 1017 Output Total 1030 1000 Balance -13 -1000 Intake: Oral 1017 Output: Urine 1030 1000 Other: Voiding Method Urinal Urinal # Voids 2 # Bowel Movements 1 - Labs CBC & Chem 7: 09/06/22 05:52 09/06/22 05:52 Labs: Abnormal Lab Results - Last 24 Hours (Table) 09/06/22 09/06/22 Range/Units 05:52 05:52 WBC 13.0 H (3.8-10.6) k/uL RBC 4.26 L (4.30-5.90) m/uL Hgb 10.2 L (13.0-17.5) gm/dL Hct 34.3 L (39.0-53.0) % MCH 24.0 L (25.0-35.0) pg MCHC 29.8 L (31.0-37.0) g/dL RDW 17.7 H (11.5-15.5) % Neutrophils # 11.5 H (1.3-7.7) k/uL Sodium 134 L (137-145) mmol/L Glucose 130 H (74-99) mg/dL
--- NOTE | 2022-09-06 10:15 | P.PN ---
Subjective Progress Note Date: 09/06/22 This is a pleasant 72-year-old male patient who has a history of coronary artery disease with previous stent placement, ischemic cardiomyopathy status post AICD/permanent pacemaker implantation, atrial fibrillation anticoagulated with Eliquis, hyperlipidemia, hypertension, chronic bronchial asthma, smoking just an occasional cigar. He had been having issues with increasing shortness of breath cough and congestion for approximately 6 months now. He had been seen in our office by Dr. Cedeño and initiated on Trilogy and 2 rounds of prednisone taper and antibiotics. Not much improvement. Chest x-ray at that time showed no acute pulmonary process. He was seen by his PCP who also gave him a round of antibiotics and steroids without much improvement. He presented here to the emergency room yesterday for the same. He is seen today in consultation in the emergency department. He is currently sitting up in a stretcher. Awake and alert in no acute distress. Maintaining O2 saturations in the upper 90s on 1 L/m per nasal cannula. Afebrile. Hemodynamically stable. He does have a loose productive cough of clear phlegm production. Chest x-ray again shows no acute cardiopulmonary process. EKG reveals sinus rhythm. White count 6.8. Hemoglobin 10.7. Platelet count 340. Sodium 137. Potassium 3.7. Bicarb 24. BUN 20. Creatinine 1.33. Glucose 110. Troponin negative 2. ProBNP 60. The patient is seen today 09/05/2022 in follow-up on the regular medical floor. He is currently sitting up in bed. Awake and alert in no acute distress. Continues with a loose productive cough of clear sputum. No fever chills. No hemoptysis. Maintaining good O2 saturations in the 90s on 1 L/m per nasal cannula. He's afebrile. Hemodynamically stable. White count 7.8. Hemoglobin 10.6. Platelets 432. Sodium 136. Potassium 4.3. BUN 19. Creatinine 1.24. Glucose 129. Pro-calcitonin 0.20. He is continued on DuoNeb inhalations, Pulmicort and Perforomist inhalations, IV Solu-Medrol. The patient is seen today 09/06/2022 in follow-up on the regular medical floor. He is resting comfortably in bed. Awake and alert in no acute distress. He continues with some dyspnea on conversation. Dyspnea on exertion. Has a loose nonproductive cough. Not feeling much better today. Echocardiogram revealed moderate to severe global hypokinesis with an ejection fraction of 35-40%. Mild tricuspid regurg. Mild to moderate aortic regurg. White count 13.0. Hemoglobin 10.2. Platelets 428. Sodium 134. Potassium 4.7. Bicarb 27. BUN 20. Creatinine 1.13. He is continued on Augmentin, DuoNeb inhalations, Pulmicort and Perforomist inhalations, IV Solu-Medrol. Anticoagulated with Jocelin efrem. Remains on oral diuretics. Currently in a -1 L balance. Objective - Vital Signs Vital signs: Vital Signs Temp 98.3 F 09/06/22 07:00 Pulse 68 09/06/22 08:07 Resp 18 09/06/22 07:00 BP 147/79 09/06/22 07:00 Pulse Ox 99 09/06/22 07:46 FiO2 Intake & Output 09/05/22 09/06/22 09/06/22 18:59 06:59 18:59 Intake Total 1017 898 Output Total 1030 1000 380 Balance - 518 Intake: Oral 1017 898 Output: Urine 1030 1000 380 Other: Voiding Method Urinal Urinal # Voids 2 # Bowel Movements 1 - Exam GENERAL EXAM: Alert, oriented 72-year-old male, on 1 L nasal cannula, comfortable in no apparent distress. HEAD: Normocephalic. EYES: Normal reaction of pupils, equal size. NOSE: Clear with pink turbinates. THROAT: No erythema or exudates. NECK: No masses, no JVD. CHEST: No chest wall deformity. LUNGS: Equal air entry with few scattered rhonchi, faint end expiratory wheeze. CVS: S1 and S2 normal with no audible murmur, regular rhythm. ABDOMEN: No hepatosplenomegaly, normal bowel sounds, no guarding or rigidity. SPINE: No scoliosis or deformity SKIN: No rashes CENTRAL NERVOUS SYSTEM: No focal deficits, tone is normal in all 4 extremities. EXTREMITIES: There is no peripheral edema. No clubbing, no cyanosis. Peripheral pulses are intact. - Labs CBC & Chem 7: 09/06/22 05:52 09/06/22 05:52 Labs: Abnormal Lab Results - Last 24 Hours (Table) 09/06/22 09/06/22 Range/Units 05:52 05:52 WBC 13.0 H (3.8-10.6) k/uL RBC 4.26 L (4.30-5.90) m/uL Hgb 10.2 L (13.0-17.5) gm/dL Hct 34.3 L (39.0-53.0) % MCH 24.0 L (25.0-35.0) pg MCHC 29.8 L (31.0-37.0) g/dL RDW 17.7 H (11.5-15.5) % Neutrophils # 11.5 H (1.3-7.7) k/uL Sodium 134 L (137-145) mmol/L Glucose 130 H (74-99) mg/dL Assessment and Plan Assessment: Acute exacerbation of mild intermittent chronic bronchial asthma. Chest x-ray revealed no acute pulmonary process. ProCalcitonin 0.20 Occasional cigar smoking, otherwise nonsmoker of cigarettes Coronary artery disease with previous stent placement Paroxysmal atrial fibrillation anti-coagulated with Eliquis Ischemic cardiomyopathy status post AICD placement History of hypertension Hyperlipidemia Hearing disorder History of CVA/TIA History of iron deficiency anemia History of gout Plan: The patient was seen and evaluated Labs and medications reviewed Still with some significant congestion Plan for bronchoscopy with BAL in a.m. Nothing by mouth after midnight Continue the current treatment plan We will continue to follow I have personally seen and examined the patient, performed the documentation and the assessment and plan as written. Number of minutes spent on the visit: 10.
[2022-09-06] MEDS: METOPROLOL SUCCINATE (ER) 25 MG TAB.ER.24H PO SCH (10:50)
--- NOTE | 2022-09-06 15:17 | P.PN ---
Subjective Progress Note Date: 09/06/22 Rayray Stewart, he is a 72-year-old male who presented to [facility] emergency room with a chief complaint of chest pain, patient also thinks that his defibrillator has fired prior to admission. He was evaluated in the emergency room vital examination on presentation revealed a temperature of 98.2 pulse 82 respiration 24 blood pressure 146/85 pulse ox 99% on room air Laboratory data revealed a white blood count of 6.8 hemoglobin 10.7 platelet count 340 sodium 137 potassium 3.7 chloride 103 CO2 24 BUN 20 creatinine 1.33 troponin level was 0.0-4 he troponin 0.2 Testing in the emergency room revealed chest x-ray done in the emergency room revealed no acute cardiopulmonary process, EKG done in the emergency room revealed sinus rhythm with left axis deviation and left ventricular hypertrophy Patient was admitted to medical floor for further evaluation and treatment On 09/05/2022 patient is alert and oriented 3. Patient reports some improvement. Patient remains on IV Solu-Medrol medication adjusted per cardiology including initiation of entresto. Discussed with cardiology nurse practitioner that patient reported he felt his AICD fire off to PCP in office. Patient denies chest pain or shortness breath. Patient denies nausea vomiting or diarrhea. Patient denies any urinary burning or frequency On 09/06/2022 patient was seen and examined on the medical floor he is alert and oriented 3 in no apparent distress there is no fever or chills no headache or dizziness no chest pain he is still having shortness of breath with any activity and cough there is no nausea or vomiting no abdominal pain no diarrhea no blood in the stools no burning with urination no frequency or urgency and no hematuria. Plan for pulmonary disease to proceed with bronchoscopy in a.m. tomorrow Objective - Vital Signs Vital signs: Vital Signs Temp 98.3 F 09/06/22 07:00 Pulse 68 09/06/22 08:07 Resp 18 09/06/22 07:00 BP 147/79 09/06/22 07:00 Pulse Ox 99 09/06/22 07:46 FiO2 Intake & Output 09/05/22 09/06/22 09/06/22 18:59 06:59 18:59 Intake Total 1017 898 Output Total 1030 1000 380 Balance - 518 Intake: Oral 1017 898 Output: Urine 1030 1000 380 Other: Voiding Method Urinal Urinal # Voids 2 # Bowel Movements 1 - Exam In general patient is alert and oriented x 3 in no distress HEENT head normocephalic and atraumatic Neck is supple no JVD no goiter no lymphadenopathy no carotid bruit Chest examination is clear to auscultation no crackles no wheezing Cardiac exam reveals regular heart sounds S1 and S2 no gallops no murmurs Abdomen is soft nontender no organomegaly with normal bowel sounds Extremity exam reveals no edema no cyanosis or clubbing Neurological examination reveals no gross focal deficits - Labs CBC & Chem 7: 09/06/22 05:52 09/06/22 05:52 Labs: Abnormal Lab Results - Last 24 Hours (Table) 09/06/22 09/06/22 Range/Units 05:52 05:52 WBC 13.0 H (3.8-10.6) k/uL RBC 4.26 L (4.30-5.90) m/uL Hgb 10.2 L (13.0-17.5) gm/dL Hct 34.3 L (39.0-53.0) % MCH 24.0 L (25.0-35.0) pg MCHC 29.8 L (31.0-37.0) g/dL RDW 17.7 H (11.5-15.5) % Neutrophils # 11.5 H (1.3-7.7) k/uL Sodium 134 L (137-145) mmol/L Glucose 130 H (74-99) mg/dL Assessment and Plan Plan: Episode of chest pain and shortness of breath Patient feeling that his AICD may have fired Underlying history of coronary artery disease with history of angioplasty and stent placement to the RCA in 2021 Underlying history of ischemic cardiomyopathy with AICD placement in 2012 Underlying history of hypertension Underlying history of hyperlipidemia Underlying history of chronic kidney disease stage III Underlying history of paroxysmal atrial fibrillation maintained on Eliquis At this time patient will be admitted to telemetry floor Home medications reviewed and reordered Echocardiogram ordered cardiology consultation was requested Also pulmonary consultation requested regarding shortness of breath Will follow closely
[2022-09-07] MEDS: methylPREDNISolone SOD SUCCI 125 MG/2 ML VIAL IV SCH ×4 (00:45→17:16)
[2022-09-07 05:38] LABS: Anisocytosis Slight; Basophils % (A) 0 %; Eosinophils # (A) 0.1 k/uL (0-0.7); Eosinophils % (A) 1 %; HCT 33.7 % (39.0-53.0); HGB 10.6 gm/dL (13.0-17.5); Hypochromasia Moderate; Lymphocytes # (A) 0.7 k/uL (1.0-4.8); Lymphocytes % (A) 5 %; MCH 25.4 pg (25.0-35.0); MCHC 31.4 g/dL (31.0-37.0); MCV 80.9 fL (80.0-100.0); Mean Platelet Volume 7.3; Microcytosis Slight; Monocytes # (A) 0.4 k/uL (0-1.0); Monocytes % (A) 3 %; Neutrophils % (A) 91 %; Platelet Count 465 k/uL (150-450); RBC 4.16 m/uL (4.30-5.90); RDW 17.7 % (11.5-15.5); WBC 13.2 k/uL (3.8-10.6)
[2022-09-07 05:59] LABS: ALT 38 U/L (4-49); AST 27 U/L (17-59); African American GFR (CKD) 71 (>60 ml/min/1.73 sqM); Albumin 3.8 g/dL (3.5-5.0); Albumin/Globulin Ratio 1.4; Alkaline Phosphatase 84 U/L (38-126); Anion Gap 7 mmol/L; Blood Urea Nitrogen 23 mg/dL (9-20); Carbon Dioxide 26 mmol/L (22-30); Chloride 101 mmol/L (98-107); Globulin 2.8 g/dL; Glucose 128 mg/dL (74-99); Non-African American GFR(CKD) 61 (>60 ml/min/1.73 sqM); Potassium 4.6 mmol/L (3.5-5.1); Sodium 134 mmol/L (137-145); Total Bilirubin 0.3 mg/dL (0.2-1.3); Total Protein 6.6 g/dL (6.3-8.2)
[2022-09-07] MEDS: PANTOPRAZOLE 40 MG TABLET PO SCH ×2 (06:09→15:49)
[2022-09-07] MEDS: IPRATROPIUM-ALBUTEROL 3 ML NEB INHALATION SCH ×4 (08:15→21:20)
[2022-09-07] MEDS: BUDESONIDE 1 MG/2 ML NEBU INHALATION SCH ×2 (08:15→21:20)
[2022-09-07] MEDS: FORMOTEROL FUMARATE 20 MCG/2 ML NEBU INHALATION SCH ×2 (08:15→21:19)
[2022-09-07] MEDS: FUROSEMIDE 20 MG TAB PO SCH (09:03)
[2022-09-07] MEDS: AMOXIC-POT CLAV 875-125MG 1 EACH TAB PO SCH ×2 (09:03→22:27)
[2022-09-07] MEDS: SPIRONOLACTONE 25 MG TAB PO SCH (09:03)
[2022-09-07] MEDS: ATORVASTATIN 20 MG TAB PO SCH (09:03)
[2022-09-07] MEDS: AMIODARONE 200 MG TAB PO SCH (09:03)
[2022-09-07] MEDS: DAPAGLIFLOZIN PROPANEDIOL 10 MG TABLET PO SCH (09:03)
[2022-09-07] MEDS: METOPROLOL SUCCINATE (ER) 25 MG TAB.ER.24H PO SCH (09:03)
[2022-09-07] MEDS: APIXABAN 5 MG TAB PO SCH ×2 (09:04→22:25)
[2022-09-07] MEDS: ASPIRIN 81 MG PO SCH (09:04)
[2022-09-07] MEDS: SACUBITRIL/VALSARTAN 24 MG-26 MG TABLET PO SCH ×2 (09:04→22:26)
[2022-09-07] MEDS: BENZONATATE 100 MG CAP PO SCH ×3 (09:04→22:26)
--- NOTE | 2022-09-07 09:16 | P.PN ---
Subjective Progress Note Date: 09/07/22 This is a 72-year-old male patient of Dr. Monsalve with history of CAD with previous PCI, ischemic cardiomyopathy with AICD in 2013, hypertension, hyperlipidemia, paroxysmal atrial fibrillation on anticoagulation, and GI bleed with colonoscopy showing likely diverticulitis and external hemorrhoids and anticoagulation has been resumed with no recurrence. He was evaluted for possible GI surgery but was not cleared by pulmonary and cardiology secondary to high risk. Patient states he presented to the emergency center due to cough with sputum production and shortness breath that has been going on for the past 6 months it has been treated with prednisone and antibiotics with no improvement. He complains of chest pain that has been going on for 3 weeks it hurts when he coughs and takes a deep breath. He also complains of dizziness and rubbery feeling legs. Patient denies having any fever. He states he has some sweating around his throat. No nausea or vomiting. No rectal bleeding, no blood in his urine. Blood pressure this morning 152/98. Telemetry is a sinus rhythm. Patient is seen in the emergency center waiting for a bed on the observation unit. EKG reveals sinus rhythm, heart rate 77 Chest x-ray: No acute cardiopulmonary disease process. WBC 6.8, hemoglobin 10.7, platelet count 340. INR 0.9. Sodium 137, potassium 3.7, chloride 103, CO2 24, BUN 20 creatinine 1.33. Liver function tests are normal. Troponin 0.0-4. Echocardiogram 09/2021 revealed EF less than 15%. Moderate pulmonary hypertension, mild mitral and tricuspid regurgitation and dilated duration of the ascending aorta and question of some flow into the RV at the level of the sinus of Vansalva. Cardiac catheterization 09/2021 by FR measurement of moderate proximal RCA lesion and PTCA and stenting of the proximal RCA and PTCA of the mid stent restenosis lesion with a high pressure noncompliant balloon. Home cardiac medications: Amiodarone 200 mg twice daily, eliquis 5 mg twice daily, aspirin 81 mg daily, Lipitor 20 mg daily, Plavix 75 mg daily, Lasix 20 mg daily, Aldactone 25 mg daily. 09/05 Patient is seen today on the observation unit. He has been seen by pulmonary medicine for asthma exacerbation and he states that his breathing is improving. He states that he woke at 3 AM and had a large amount of phlegm production that was white and following that his breathing was improved. He did feel some acid reflux following the coughing episode. Patient is tolerating the new medications with stable blood pressure. Heart rate has been in the 70s and 80s, blood pressure 154/82, pulse ox 99% on 1-1/2 L oxygen. Telemetry is sinus rhythm. Repeat blood work reveals hemoglobin of 10.6. Sodium 136, blood sugar 129. Pro-calcitonin was high at 0.2. Echocardiogram 09/06 The patient is seen today in follow-up. He has less coughing and less shortness of breath today. He is scheduled for bronchoscopy tomorrow with Dr. Burdick. His heart rate has been in the 60s, blood pressure 147/79. Patient has tolerated Entresto well. Noted that he is not currently on a beta kris and this will be started now. Repeat blood work reveals hemoglobin of 10.2, BUN 20 creatinine 1.13, potassium 4.7. Echocardiogram reveals moderate to severe global hypokinesia of the left ventricle with EF of 35-40%, mild mitral and tricuspid regurgitation, mild to moderate aortic regurgitation 09/07 Patient is seen today in follow-up. He is scheduled for bronchoscopy today with Dr. Burdick. Heart rate has been in the 60s and 70s, blood pressure 143/82. Repeat blood work reveals WBC 13.2, hemoglobin 10.6, platelet count 465. Sodium 134, potassium 4.6, BUN 23 and creatinine 1.18. Patient states that he is coughing less today and bringing up a little sputum. Patient continues to have wheezing. Yesterday, we started patient on Toprol-XL and patient is tolerating well. PHYSICAL EXAMINATION CONSTITUTIONAL: No apparent distress. HEENT: Head is normocephalic. Pupils are equal, round. Sclerae anicteric. Mucous membranes of the mouth are moist. No JVD. CHEST EXAMINATION: Lungs are diminished with scattered wheeze. HEART EXAMINATION: Regular rate and rhythm. S1, S2 heard. Systolic murmur at left sternal border. ABDOMEN: Soft, nontender. Positive bowel sounds. EXTREMITIES: 2+ peripheral pulses, no lower extremity edema and no calf tenderness. NEUROLOGIC EXAMINATION: Patient is awake, alert and oriented x3. ASSESSMENT Chest pain with cough and deep breathing appears to be related to pulmonary issues Chronic cough and sputum production History of Ventricular tachycardia with AICD CAD with previous PCI to the RCA in 2002, PTCA and stenting of the RCA in 2021 and PTCA of the mid stent restenosis lesion 2021 Ischemic cardiomyopathy with AICD in 2012 Hypertension Hyperlipidemia Paroxysmal atrial fibrillation on Eliquis History of diverticulitis Anemia Chronic kidney disease stage III PLAN Continue patient's home cardiac medications with the following changes: Decrease amiodarone to once daily Continue patient on Farxiga 10 mg daily, Entresto 2426 milligram one twice daily and Toprol 25 mg daily Cardiology will sign off and follow on an as needed basis. Please reconsult for any new concerns. Patient will follow-up with Dr. ORESTES Monsalve in one week following discharge. Nurse practitioner note has been reviewed by physician. Signing provider agrees with the documented findings, assessment, and plan of care. Objective - Vital Signs Vital signs: Vital Signs Temp 98.1 F 09/07/22 07:00 Pulse 70 09/07/22 08:15 Resp 18 09/07/22 07:00 BP 143/82 09/07/22 07:00 Pulse Ox 99 09/07/22 08:15 FiO2 Intake & Output 09/06/22 09/07/22 09/07/22 18:59 06:59 18:59 Intake Total 1355 Output Total 380 1525 200 Balance 975 -1525 -200 Intake: Oral 1355 Output: Urine 380 1525 200 Other: Voiding Method Urinal # Voids 3 2 # Bowel Movements 1 - Labs CBC & Chem 7: 09/07/22 05:15 09/07/22 05:15 Labs: Abnormal Lab Results - Last 24 Hours (Table) 09/07/22 09/07/22 Range/Units 05:15 05:15 WBC 13.2 H (3.8-10.6) k/uL RBC 4.16 L (4.30-5.90) m/uL Hgb 10.6 L (13.0-17.5) gm/dL Hct 33.7 L (39.0-53.0) % RDW 17.7 H (11.5-15.5) % Plt Count 465 H (150-450) k/uL Neutrophils # 12.0 H (1.3-7.7) k/uL Lymphocytes # 0.7 L (1.0-4.8) k/uL Sodium 134 L (137-145) mmol/L BUN 23 H (9-20) mg/dL Glucose 128 H (74-99) mg/dL
--- NOTE | 2022-09-07 10:07 | P.PN ---
Subjective Progress Note Date: 09/07/22 Rayray Stewart, he is a 72-year-old male who presented to [facility] emergency room with a chief complaint of chest pain, patient also thinks that his defibrillator has fired prior to admission. He was evaluated in the emergency room vital examination on presentation revealed a temperature of 98.2 pulse 82 respiration 24 blood pressure 146/85 pulse ox 99% on room air Laboratory data revealed a white blood count of 6.8 hemoglobin 10.7 platelet count 340 sodium 137 potassium 3.7 chloride 103 CO2 24 BUN 20 creatinine 1.33 troponin level was 0.0-4 he troponin 0.2 Testing in the emergency room revealed chest x-ray done in the emergency room revealed no acute cardiopulmonary process, EKG done in the emergency room revealed sinus rhythm with left axis deviation and left ventricular hypertrophy Patient was admitted to medical floor for further evaluation and treatment On 09/05/2022 patient is alert and oriented 3. Patient reports some improvement. Patient remains on IV Solu-Medrol medication adjusted per cardiology including initiation of entresto. Discussed with cardiology nurse practitioner that patient reported he felt his AICD fire off to PCP in office. Patient denies chest pain or shortness breath. Patient denies nausea vomiting or diarrhea. Patient denies any urinary burning or frequency On 09/06/2022 patient was seen and examined on the medical floor he is alert and oriented 3 in no apparent distress there is no fever or chills no headache or dizziness no chest pain he is still having shortness of breath with any activity and cough there is no nausea or vomiting no abdominal pain no diarrhea no blood in the stools no burning with urination no frequency or urgency and no hematuria. Plan for pulmonary disease to proceed with bronchoscopy in a.m. tomorrow On 09/07/2019 and 3 patient is alert and oriented 3. Patient still having some shortness of breath. Complains bronchoscopy today per pulmonary patient remains on IV Solu-Medrol. Current vital signs temp 98.1 heart rate 70, pulse ox 99% on 1 L and blood pressure 143/82 Objective - Vital Signs Vital signs: Vital Signs Temp 98.1 F 09/07/22 07:00 Pulse 72 09/07/22 08:38 Resp 18 09/07/22 07:00 BP 143/82 09/07/22 07:00 Pulse Ox 99 09/07/22 08:15 FiO2 Intake & Output 09/06/22 09/07/22 09/07/22 18:59 06:59 18:59 Intake Total 1355 Output Total 380 1525 200 Balance 975 -1525 -200 Intake: Oral 1355 Output: Urine 380 1525 200 Other: Voiding Method Urinal Urinal # Voids 3 2 # Bowel Movements 1 - Exam In general patient is alert and oriented x 3 in no distress HEENT head normocephalic and atraumatic Neck is supple no JVD no goiter no lymphadenopathy no carotid bruit Chest examination is clear to auscultation no crackles no wheezing Cardiac exam reveals regular heart sounds S1 and S2 no gallops no murmurs Abdomen is soft nontender no organomegaly with normal bowel sounds Extremity exam reveals no edema no cyanosis or clubbing Neurological examination reveals no gross focal deficits - Labs CBC & Chem 7: 09/07/22 05:15 09/07/22 05:15 Labs: Abnormal Lab Results - Last 24 Hours (Table) 09/07/22 09/07/22 Range/Units 05:15 05:15 WBC 13.2 H (3.8-10.6) k/uL RBC 4.16 L (4.30-5.90) m/uL Hgb 10.6 L (13.0-17.5) gm/dL Hct 33.7 L (39.0-53.0) % RDW 17.7 H (11.5-15.5) % Plt Count 465 H (150-450) k/uL Neutrophils # 12.0 H (1.3-7.7) k/uL Lymphocytes # 0.7 L (1.0-4.8) k/uL Sodium 134 L (137-145) mmol/L BUN 23 H (9-20) mg/dL Glucose 128 H (74-99) mg/dL Assessment and Plan Plan: Episode of chest pain and shortness of breath Patient feeling that his AICD may have fired Underlying history of coronary artery disease with history of angioplasty and stent placement to the RCA in 2021 Underlying history of ischemic cardiomyopathy with AICD placement in 2012 Underlying history of hypertension Underlying history of hyperlipidemia Underlying history of chronic kidney disease stage III Underlying history of paroxysmal atrial fibrillation maintained on Eliquis At this time patient will be admitted to telemetry floor Home medications reviewed and reordered Echocardiogram ordered cardiology consultation was requested Plans for bronchoscopy today 09/07/2022 Will follow closely
--- NOTE | 2022-09-07 10:40 | P.PN ---
Subjective Progress Note Date: 09/07/22 This is a pleasant 72-year-old male patient who has a history of coronary artery disease with previous stent placement, ischemic cardiomyopathy status post AICD/permanent pacemaker implantation, atrial fibrillation anticoagulated with Eliquis, hyperlipidemia, hypertension, chronic bronchial asthma, smoking just an occasional cigar. He had been having issues with increasing shortness of breath cough and congestion for approximately 6 months now. He had been seen in our office by Dr. Cedeño and initiated on Trilogy and 2 rounds of prednisone taper and antibiotics. Not much improvement. Chest x-ray at that time showed no acute pulmonary process. He was seen by his PCP who also gave him a round of antibiotics and steroids without much improvement. He presented here to the emergency room yesterday for the same. He is seen today in consultation in the emergency department. He is currently sitting up in a stretcher. Awake and alert in no acute distress. Maintaining O2 saturations in the upper 90s on 1 L/m per nasal cannula. Afebrile. Hemodynamically stable. He does have a loose productive cough of clear phlegm production. Chest x-ray again shows no acute cardiopulmonary process. EKG reveals sinus rhythm. White count 6.8. Hemoglobin 10.7. Platelet count 340. Sodium 137. Potassium 3.7. Bicarb 24. BUN 20. Creatinine 1.33. Glucose 110. Troponin negative 2. ProBNP 60. The patient is seen today 09/05/2022 in follow-up on the regular medical floor. He is currently sitting up in bed. Awake and alert in no acute distress. Continues with a loose productive cough of clear sputum. No fever chills. No hemoptysis. Maintaining good O2 saturations in the 90s on 1 L/m per nasal cannula. He's afebrile. Hemodynamically stable. White count 7.8. Hemoglobin 10.6. Platelets 432. Sodium 136. Potassium 4.3. BUN 19. Creatinine 1.24. Glucose 129. Pro-calcitonin 0.20. He is continued on DuoNeb inhalations, Pulmicort and Perforomist inhalations, IV Solu-Medrol. The patient is seen today 09/06/2022 in follow-up on the regular medical floor. He is resting comfortably in bed. Awake and alert in no acute distress. He continues with some dyspnea on conversation. Dyspnea on exertion. Has a loose nonproductive cough. Not feeling much better today. Echocardiogram revealed moderate to severe global hypokinesis with an ejection fraction of 35-40%. Mild tricuspid regurg. Mild to moderate aortic regurg. White count 13.0. Hemoglobin 10.2. Platelets 428. Sodium 134. Potassium 4.7. Bicarb 27. BUN 20. Creatinine 1.13. He is continued on Augmentin, DuoNeb inhalations, Pulmicort and Perforomist inhalations, IV Solu-Medrol. Anticoagulated with Jocelin efrem. Remains on oral diuretics. Currently in a -1 L balance. The patient is seen today 09/07/2022 in follow-up on the regular medical floor. Currently sitting up in bed. Awake and alert in no acute distress. Maintaining O2 saturations in the 90s on 1.5 L/m per nasal cannula. No IV fluids. Continues with a loose nonproductive cough. White count 13.2. He will then 10.6. Platelets 465. Sodium 134. Potassium 4.6. Bicarb 26. BUN 23. Creatinine 1.18. Glucose 128. He is continued on DuoNeb inhalations, Pulmicort and Perforomist inhalations, IV Solu-Medrol. Antibiotics in the form of Augmentin. Anticoagulated with Eliquis. He is nothing by mouth. Plan is for bronchoscopy with BAL today. Objective - Vital Signs Vital signs: Vital Signs Temp 98.1 F 09/07/22 07:00 Pulse 72 09/07/22 08:38 Resp 18 09/07/22 07:00 BP 143/82 09/07/22 07:00 Pulse Ox 99 09/07/22 08:15 FiO2 Intake & Output 09/06/22 09/07/22 09/07/22 18:59 06:59 18:59 Intake Total 1355 Output Total 380 1525 200 Balance 975 -1525 -200 Intake: Oral 1355 Output: Urine 380 1525 200 Other: Voiding Method Urinal Urinal # Voids 3 2 # Bowel Movements 1 - Exam GENERAL EXAM: Alert, pleasant 72-year-old male, on 1.5 L nasal cannula, sitting up in bed, comfortable in no apparent distress. HEAD: Normocephalic. EYES: Normal reaction of pupils, equal size. NOSE: Clear with pink turbinates. THROAT: No erythema or exudates. NECK: No masses, no JVD. CHEST: No chest wall deformity. LUNGS: Equal air entry with few scattered rhonchi, faint end expiratory wheeze. CVS: S1 and S2 normal with no audible murmur, regular rhythm. ABDOMEN: No hepatosplenomegaly, normal bowel sounds, no guarding or rigidity. SPINE: No scoliosis or deformity SKIN: No rashes CENTRAL NERVOUS SYSTEM: No focal deficits, tone is normal in all 4 extremities. EXTREMITIES: There is no peripheral edema. No clubbing, no cyanosis. Peripheral pulses are intact. - Labs CBC & Chem 7: 09/07/22 05:15 09/07/22 05:15 Labs: Abnormal Lab Results - Last 24 Hours (Table) 09/07/22 09/07/22 Range/Units 05:15 05:15 WBC 13.2 H (3.8-10.6) k/uL RBC 4.16 L (4.30-5.90) m/uL Hgb 10.6 L (13.0-17.5) gm/dL Hct 33.7 L (39.0-53.0) % RDW 17.7 H (11.5-15.5) % Plt Count 465 H (150-450) k/uL Neutrophils # 12.0 H (1.3-7.7) k/uL Lymphocytes # 0.7 L (1.0-4.8) k/uL Sodium 134 L (137-145) mmol/L BUN 23 H (9-20) mg/dL Glucose 128 H (74-99) mg/dL Assessment and Plan Assessment: Acute exacerbation of mild intermittent chronic bronchial asthma. Chest x-ray revealed no acute pulmonary process. ProCalcitonin 0.20 Occasional cigar smoking, otherwise nonsmoker of cigarettes Coronary artery disease with previous stent placement Paroxysmal atrial fibrillation anti-coagulated with Eliquis Ischemic cardiomyopathy status post AICD placement History of hypertension Hyperlipidemia Hearing disorder History of CVA/TIA History of iron deficiency anemia History of gout Plan: The patient was seen and evaluated Labs and medications reviewed Plan is for bronchoscopy with BAL today Continue the current treatment plan We will continue to follow I have personally seen and examined the patient, performed the documentation and the assessment and plan as written. Number of minutes spent on the visit: 10.
[2022-09-07] MEDS ORDERED: MIDAZOLAM 2 MG/2 ML VIAL ONE (13:30)
[2022-09-07] MEDS ORDERED: PROPOFOL 10 MG/ML 20 ML VIAL IV ONE (13:30)
[2022-09-07] MEDS ORDERED: LIDOCAINE 2% INJ 20 MG/ML (2 ML VIAL) ONE (13:30)
[2022-09-07] MEDS ORDERED: fentaNYL (PF) 50 MCG/ML 2 ML AMP ONE (13:30)
[2022-09-07] MEDS ORDERED: KETAMINE 10 MG/ML 20 ML VIAL ONE (13:30)
[2022-09-07] MEDS ORDERED: IV FLUID CONTINUATION 900 ML IV ONE (13:43)
--- NOTE | 2022-09-07 20:34 | PCN ---
PROCEDURE NOTE This is a Pulmonary/Critical Care procedure note. PROCEDURES PERFORMED: Bronchoscopy, airway examination, therapeutic lavage, and bronchoalveolar lavage. PREOPERATIVE DIAGNOSES: Chronic obstructive pulmonary disease/asthma exacerbation and retained secretions. POSTOPERATIVE DIAGNOSES: Chronic obstructive pulmonary disease/asthma exacerbation and retained secretions. SHOESHINER: Dr. Velvet Arevalo. ANESTHESIA PROVIDED: General anesthesia by Dr. Noel and Avel Hunt CRNA. The patient's procedure was done in room #1 [facility]. There were informed consent and universal time-out. DESCRIPTION OF PROCEDURE: After the patient was adequately sedated and being fully monitored, the bronchoscope was inserted through the right nostril. It passed through the right nasopharynx into the oropharynx. The hypopharynx was identified and topicalized. The hypopharyngeal structures including anterior commissure, true cords, false cords, arytenoids, piriform sinuses - right and left, valleculae, and epiglottis all appeared normal. The glottic opening was then topicalized. The bronchoscope was pushed through the glottic opening into the trachea. Trachea appeared normal. There were minimal secretions in the trachea. The right and left mainstem were topicalized. Right upper lobe and its 3 segments, right middle lobe and its 2 segments, right lower lobe and its 5 segments, left upper lobe proper and its 2 segments, lingula and its 2 segments, and left lower lobe and its 4 segments all had similar findings of kjyq-[id number] bronchitis. There were vizl-[id number] erythema and hyperemia. There was some mucosal friability. There was no dominant mass or tumor. There were moderate secretions throughout, which were mildly purulent. The bronchoscope was then wedged into the right middle lobe. We did a formal BAL. 30 mL of turbid fluid was recovered. The fluid will be sent for analysis including cytology and microbiology. The patient tolerated the procedure well. The bronchoscope was withdrawn. The patient will be recovered. There was no immediate complication. MMODL / IJN: [id number] /
[2022-09-07] MEDS: ACETAMINOPHEN TAB 325 MG TAB PO PRN (22:27)
[2022-09-08] MEDS: methylPREDNISolone SOD SUCCI 125 MG/2 ML VIAL IV SCH ×2 (00:24→05:27)
[2022-09-08] MEDS: PANTOPRAZOLE 40 MG TABLET PO SCH ×2 (05:27→16:10)
[2022-09-08 06:13] LABS: Anisocytosis Slight; Basophils % (A) 0 %; Eosinophils % (A) 0 %; HCT 33.4 % (39.0-53.0); HGB 10.4 gm/dL (13.0-17.5); Hypochromasia Moderate; Lymphocytes # (A) 0.8 k/uL (1.0-4.8); Lymphocytes % (A) 7 %; MCH 25.2 pg (25.0-35.0); MCHC 31.1 g/dL (31.0-37.0); MCV 80.8 fL (80.0-100.0); Mean Platelet Volume 7.5; Microcytosis Slight; Monocytes # (A) 0.6 k/uL (0-1.0); Monocytes % (A) 5 %; Neutrophils % (A) 87 %; Platelet Count 474 k/uL (150-450); RBC 4.14 m/uL (4.30-5.90); RDW 17.7 % (11.5-15.5); WBC 11.5 k/uL (3.8-10.6)
[2022-09-08 06:49] LABS: ALT 34 U/L (4-49); AST 24 U/L (17-59); African American GFR (CKD) 74 (>60 ml/min/1.73 sqM); Albumin 3.5 g/dL (3.5-5.0); Albumin/Globulin Ratio 1.3; Alkaline Phosphatase 79 U/L (38-126); Anion Gap 6 mmol/L; Blood Urea Nitrogen 26 mg/dL (9-20); Calcium 8.8 mg/dL (8.4-10.2); Carbon Dioxide 26 mmol/L (22-30); Chloride 101 mmol/L (98-107); Globulin 2.7 g/dL; Glucose 124 mg/dL (74-99); Non-African American GFR(CKD) 64 (>60 ml/min/1.73 sqM); Potassium 4.6 mmol/L (3.5-5.1); Sodium 133 mmol/L (137-145); Total Bilirubin 0.3 mg/dL (0.2-1.3); Total Protein 6.2 g/dL (6.3-8.2)
[2022-09-08] MEDS: IPRATROPIUM-ALBUTEROL 3 ML NEB INHALATION SCH ×4 (07:34→21:36)
[2022-09-08] MEDS: BUDESONIDE 1 MG/2 ML NEBU INHALATION SCH ×2 (07:34→21:36)
[2022-09-08] MEDS: FORMOTEROL FUMARATE 20 MCG/2 ML NEBU INHALATION SCH ×2 (07:34→21:36)
[2022-09-08] MEDS: FUROSEMIDE 20 MG TAB PO SCH (08:08)
[2022-09-08] MEDS: ATORVASTATIN 20 MG TAB PO SCH (08:08)
[2022-09-08] MEDS: AMIODARONE 200 MG TAB PO SCH (08:08)
[2022-09-08] MEDS: SACUBITRIL/VALSARTAN 24 MG-26 MG TABLET PO SCH ×2 (08:08→21:47)
[2022-09-08] MEDS: SPIRONOLACTONE 25 MG TAB PO SCH (08:08)
[2022-09-08] MEDS: DAPAGLIFLOZIN PROPANEDIOL 10 MG TABLET PO SCH (08:08)
[2022-09-08] MEDS: METOPROLOL SUCCINATE (ER) 25 MG TAB.ER.24H PO SCH (08:08)
[2022-09-08] MEDS: ASPIRIN 81 MG PO SCH (08:09)
[2022-09-08] MEDS: BENZONATATE 100 MG CAP PO SCH ×3 (08:09→21:47)
[2022-09-08] MEDS: AMOXIC-POT CLAV 875-125MG 1 EACH TAB PO SCH ×2 (08:09→21:46)
[2022-09-08] MEDS: APIXABAN 5 MG TAB PO SCH ×2 (08:09→21:00)
--- NOTE | 2022-09-08 10:51 | P.PN ---
Subjective Progress Note Date: 09/08/22 This is a pleasant 72-year-old male patient who has a history of coronary artery disease with previous stent placement, ischemic cardiomyopathy status post AICD/permanent pacemaker implantation, atrial fibrillation anticoagulated with Eliquis, hyperlipidemia, hypertension, chronic bronchial asthma, smoking just an occasional cigar. He had been having issues with increasing shortness of breath cough and congestion for approximately 6 months now. He had been seen in our office by Dr. Cedeño and initiated on Trilogy and 2 rounds of prednisone taper and antibiotics. Not much improvement. Chest x-ray at that time showed no acute pulmonary process. He was seen by his PCP who also gave him a round of antibiotics and steroids without much improvement. He presented here to the emergency room yesterday for the same. He is seen today in consultation in the emergency department. He is currently sitting up in a stretcher. Awake and alert in no acute distress. Maintaining O2 saturations in the upper 90s on 1 L/m per nasal cannula. Afebrile. Hemodynamically stable. He does have a loose productive cough of clear phlegm production. Chest x-ray again shows no acute cardiopulmonary process. EKG reveals sinus rhythm. White count 6.8. Hemoglobin 10.7. Platelet count 340. Sodium 137. Potassium 3.7. Bicarb 24. BUN 20. Creatinine 1.33. Glucose 110. Troponin negative 2. ProBNP 60. The patient is seen today 09/05/2022 in follow-up on the regular medical floor. He is currently sitting up in bed. Awake and alert in no acute distress. Continues with a loose productive cough of clear sputum. No fever chills. No hemoptysis. Maintaining good O2 saturations in the 90s on 1 L/m per nasal cannula. He's afebrile. Hemodynamically stable. White count 7.8. Hemoglobin 10.6. Platelets 432. Sodium 136. Potassium 4.3. BUN 19. Creatinine 1.24. Glucose 129. Pro-calcitonin 0.20. He is continued on DuoNeb inhalations, Pulmicort and Perforomist inhalations, IV Solu-Medrol. The patient is seen today 09/06/2022 in follow-up on the regular medical floor. He is resting comfortably in bed. Awake and alert in no acute distress. He continues with some dyspnea on conversation. Dyspnea on exertion. Has a loose nonproductive cough. Not feeling much better today. Echocardiogram revealed moderate to severe global hypokinesis with an ejection fraction of 35-40%. Mild tricuspid regurg. Mild to moderate aortic regurg. White count 13.0. Hemoglobin 10.2. Platelets 428. Sodium 134. Potassium 4.7. Bicarb 27. BUN 20. Creatinine 1.13. He is continued on Augmentin, DuoNeb inhalations, Pulmicort and Perforomist inhalations, IV Solu-Medrol. Anticoagulated with Jocelin efrem. Remains on oral diuretics. Currently in a -1 L balance. The patient is seen today 09/07/2022 in follow-up on the regular medical floor. Currently sitting up in bed. Awake and alert in no acute distress. Maintaining O2 saturations in the 90s on 1.5 L/m per nasal cannula. No IV fluids. Continues with a loose nonproductive cough. White count 13.2. He will then 10.6. Platelets 465. Sodium 134. Potassium 4.6. Bicarb 26. BUN 23. Creatinine 1.18. Glucose 128. He is continued on DuoNeb inhalations, Pulmicort and Perforomist inhalations, IV Solu-Medrol. Antibiotics in the form of Augmentin. Anticoagulated with Eliquis. He is nothing by mouth. Plan is for bronchoscopy with BAL today. The patient was seen today 09/08/2022 in follow-up on the regular medical floor. He is currently sitting up in a chair at the bedside. Awake and alert in no acute distress. Breathing easier today compared to yesterday. He did undergo bronchoscopy with BAL yesterday, fluid cytology and cultures pending. White count 11.5. Hemoglobin 10.4. Platelets 474. Sodium 133. Potassium 4.6. Bicarb 26. BUN 26. Creatinine 1.14. Glucose 124. He is continued on DuoNeb inhalations, perform a simple Pulmicort inhalations, IV Solu-Medrol. Antibiotics in the form of Augmentin. Remains on oral diuretics. Objective - Vital Signs Vital signs: Vital Signs Temp 97.6 F 09/08/22 07:00 Pulse 74 09/08/22 07:59 Resp 16 09/08/22 07:00 BP 125/63 09/08/22 07:00 Pulse Ox 99 09/08/22 07:35 FiO2 Intake & Output 09/07/22 09/08/22 09/08/22 18:59 06:59 18:59 Intake Total 240 Output Total 700 Balance -460 Intake: IV 120 Oral 120 Output: Urine 300 Stool 400 Other: Voiding Method Urinal Urinal # Voids 2 - Exam GENERAL EXAM: Alert, 72-year-old male, on 1.5 L nasal cannula, up in a chair, comfortable in no apparent distress. HEAD: Normocephalic. EYES: Normal reaction of pupils, equal size. NOSE: Clear with pink turbinates. THROAT: No erythema or exudates. NECK: No masses, no JVD. CHEST: No chest wall deformity. LUNGS: Equal air entry with few scattered rhonchi, faint end expiratory wheeze. CVS: S1 and S2 normal with no audible murmur, regular rhythm. ABDOMEN: No hepatosplenomegaly, normal bowel sounds, no guarding or rigidity. SPINE: No scoliosis or deformity SKIN: No rashes CENTRAL NERVOUS SYSTEM: No focal deficits, tone is normal in all 4 extremities. EXTREMITIES: There is no peripheral edema. No clubbing, no cyanosis. Peripheral pulses are intact. - Labs CBC & Chem 7: 09/08/22 05:25 09/08/22 05:25 Labs: Abnormal Lab Results - Last 24 Hours (Table) 09/08/22 09/08/22 Range/Units 05:25 05:25 WBC 11.5 H (3.8-10.6) k/uL RBC 4.14 L (4.30-5.90) m/uL Hgb 10.4 L (13.0-17.5) gm/dL Hct 33.4 L (39.0-53.0) % RDW 17.7 H (11.5-15.5) % Plt Count 474 H (150-450) k/uL Neutrophils # 10.0 H (1.3-7.7) k/uL Lymphocytes # 0.8 L (1.0-4.8) k/uL Sodium 133 L (137-145) mmol/L BUN 26 H (9-20) mg/dL Glucose 124 H (74-99) mg/dL Total Protein 6.2 L (6.3-8.2) g/dL Assessment and Plan Assessment: Acute exacerbation of mild intermittent chronic bronchial asthma. Chest x-ray revealed no acute pulmonary process. ProCalcitonin 0.20 8 status post bronchoscopy with BAL and 09/07/2022. Cultures pending. Occasional cigar smoking, otherwise nonsmoker of cigarettes Coronary artery disease with previous stent placement Paroxysmal atrial fibrillation anti-coagulated with Eliquis Ischemic cardiomyopathy status post AICD placement History of hypertension Hyperlipidemia Hearing disorder History of CVA/TIA History of iron deficiency anemia History of gout Plan: The patient was seen and evaluated Labs and medications reviewed Bronchoscopy cultures pending Continue the current treatment plan Titrate down the FiO2 as tolerated We will continue to follow I have personally seen and examined the patient, performed the documentation and the assessment and plan as written. Number of minutes spent on the visit: 10.
--- NOTE | 2022-09-08 12:14 | P.PN ---
Subjective Progress Note Date: 09/08/22 Rayray Stewart, he is a 72-year-old male who presented to [facility] emergency room with a chief complaint of chest pain, patient also thinks that his defibrillator has fired prior to admission. He was evaluated in the emergency room vital examination on presentation revealed a temperature of 98.2 pulse 82 respiration 24 blood pressure 146/85 pulse ox 99% on room air Laboratory data revealed a white blood count of 6.8 hemoglobin 10.7 platelet count 340 sodium 137 potassium 3.7 chloride 103 CO2 24 BUN 20 creatinine 1.33 troponin level was 0.0-4 he troponin 0.2 Testing in the emergency room revealed chest x-ray done in the emergency room revealed no acute cardiopulmonary process, EKG done in the emergency room revealed sinus rhythm with left axis deviation and left ventricular hypertrophy Patient was admitted to medical floor for further evaluation and treatment On 09/05/2022 patient is alert and oriented 3. Patient reports some improvement. Patient remains on IV Solu-Medrol medication adjusted per cardiology including initiation of entresto. Discussed with cardiology nurse practitioner that patient reported he felt his AICD fire off to PCP in office. Patient denies chest pain or shortness breath. Patient denies nausea vomiting or diarrhea. Patient denies any urinary burning or frequency On 09/06/2022 patient was seen and examined on the medical floor he is alert and oriented 3 in no apparent distress there is no fever or chills no headache or dizziness no chest pain he is still having shortness of breath with any activity and cough there is no nausea or vomiting no abdominal pain no diarrhea no blood in the stools no burning with urination no frequency or urgency and no hematuria. Plan for pulmonary disease to proceed with bronchoscopy in a.m. tomorrow On 09/07/2022 and 3 patient is alert and oriented 3. Patient still having some shortness of breath. Completed bronchoscopy today per pulmonary patient remains on IV Solu-Medrol. Current vital signs temp 98.1 heart rate 70, pulse ox 99% on 1 L and blood pressure 143/82 On 09/08/2022 patient was seen and examined on the medical floor, he is alert and oriented 3 in no apparent distress he is complaining of cough, otherwise he denies any complaints there is no fever or chills no headache or dizziness no chest pain no shortness of breath no nausea or vomiting no abdominal pain no diarrhea and no urinary symptoms. Mucinex was added to her regimen, physical therapy and occupational therapy consulted will follow closely. Objective - Vital Signs Vital signs: Vital Signs Temp 97.6 F 09/08/22 07:00 Pulse 74 09/08/22 07:59 Resp 16 09/08/22 07:00 BP 125/63 09/08/22 07:00 Pulse Ox 99 09/08/22 07:35 FiO2 Intake & Output 09/07/22 09/08/22 09/08/22 18:59 06:59 18:59 Intake Total 240 Output Total 700 Balance -460 Intake: IV 120 Oral 120 Output: Urine 300 Stool 400 Other: Voiding Method Urinal Urinal # Voids 2 - Exam In general patient is alert and oriented x 3 in no distress HEENT head normocephalic and atraumatic Neck is supple no JVD no goiter no lymphadenopathy no carotid bruit Chest examination is clear to auscultation no crackles no wheezing Cardiac exam reveals regular heart sounds S1 and S2 no gallops no murmurs Abdomen is soft nontender no organomegaly with normal bowel sounds Extremity exam reveals no edema no cyanosis or clubbing Neurological examination reveals no gross focal deficits - Labs CBC & Chem 7: 09/08/22 05:25 09/08/22 05:25 Labs: Abnormal Lab Results - Last 24 Hours (Table) 09/08/22 09/08/22 Range/Units 05:25 05:25 WBC 11.5 H (3.8-10.6) k/uL RBC 4.14 L (4.30-5.90) m/uL Hgb 10.4 L (13.0-17.5) gm/dL Hct 33.4 L (39.0-53.0) % RDW 17.7 H (11.5-15.5) % Plt Count 474 H (150-450) k/uL Neutrophils # 10.0 H (1.3-7.7) k/uL Lymphocytes # 0.8 L (1.0-4.8) k/uL Sodium 133 L (137-145) mmol/L BUN 26 H (9-20) mg/dL Glucose 124 H (74-99) mg/dL Total Protein 6.2 L (6.3-8.2) g/dL Assessment and Plan Plan: Episode of chest pain and shortness of breath Patient feeling that his AICD may have fired Underlying history of coronary artery disease with history of angioplasty and stent placement to the RCA in 2021 Underlying history of ischemic cardiomyopathy with AICD placement in 2012 Underlying history of hypertension Underlying history of hyperlipidemia Underlying history of chronic kidney disease stage III Underlying history of paroxysmal atrial fibrillation maintained on Eliquis At this time patient will be admitted to telemetry floor Home medications reviewed and reordered Echocardiogram ordered cardiology consultation was requested Plans for bronchoscopy today 09/07/2022 Will follow closely
[2022-09-08] MEDS: ACETAMINOPHEN TAB 325 MG TAB PO PRN ×2 (13:49→21:00)
[2022-09-08 13:52] VITALS: BMI 26.9
[2022-09-08] MEDS: methylPREDNISolone SOD SUCCI 40 MG/ML 1 ML VIAL IV SCH ×2 (16:10→23:21)
[2022-09-09 06:37] LABS: Anisocytosis Slight; Basophils % (A) 0 %; Eosinophils % (A) 0 %; HCT 34.9 % (39.0-53.0); HGB 10.7 gm/dL (13.0-17.5); Hypochromasia Moderate; Lymphocytes # (A) 0.9 k/uL (1.0-4.8); Lymphocytes % (A) 7 %; MCH 24.9 pg (25.0-35.0); MCHC 30.7 g/dL (31.0-37.0); MCV 80.9 fL (80.0-100.0); Mean Platelet Volume 7.2; Microcytosis Slight; Monocytes # (A) 0.7 k/uL (0-1.0); Monocytes % (A) 6 %; Neutrophils # (A) 9.9 k/uL (1.3-7.7); Neutrophils % (A) 86 %; Platelet Count 500 k/uL (150-450); RBC 4.32 m/uL (4.30-5.90); RDW 17.4 % (11.5-15.5); WBC 11.5 k/uL (3.8-10.6)
[2022-09-09] MEDS: PANTOPRAZOLE 40 MG TABLET PO SCH ×2 (06:37→15:59)
[2022-09-09 06:50] LABS: ALT 32 U/L (4-49); AST 23 U/L (17-59); African American GFR (CKD) 85 (>60 ml/min/1.73 sqM); Albumin 3.5 g/dL (3.5-5.0); Albumin/Globulin Ratio 1.3; Alkaline Phosphatase 68 U/L (38-126); Anion Gap 5 mmol/L; Blood Urea Nitrogen 24 mg/dL (9-20); Calcium 8.7 mg/dL (8.4-10.2); Carbon Dioxide 26 mmol/L (22-30); Chloride 101 mmol/L (98-107); Globulin 2.7 g/dL; Glucose 114 mg/dL (74-99); Non-African American GFR(CKD) 73 (>60 ml/min/1.73 sqM); Potassium 4.6 mmol/L (3.5-5.1); Sodium 132 mmol/L (137-145); Total Bilirubin 0.4 mg/dL (0.2-1.3); Total Protein 6.2 g/dL (6.3-8.2)
[2022-09-09] MEDS: DAPAGLIFLOZIN PROPANEDIOL 10 MG TABLET PO SCH (08:12)
[2022-09-09] MEDS: SACUBITRIL/VALSARTAN 24 MG-26 MG TABLET PO SCH ×2 (08:12→20:45)
[2022-09-09] MEDS: AMIODARONE 200 MG TAB PO SCH (08:12)
[2022-09-09] MEDS: APIXABAN 5 MG TAB PO SCH ×2 (08:12→20:45)
[2022-09-09] MEDS: ATORVASTATIN 20 MG TAB PO SCH (08:12)
[2022-09-09] MEDS: SPIRONOLACTONE 25 MG TAB PO SCH (08:12)
[2022-09-09] MEDS: ASPIRIN 81 MG PO SCH (08:12)
[2022-09-09] MEDS: AMOXIC-POT CLAV 875-125MG 1 EACH TAB PO SCH ×2 (08:12→20:45)
[2022-09-09] MEDS: BENZONATATE 100 MG CAP PO SCH ×3 (08:12→20:45)
[2022-09-09] MEDS: methylPREDNISolone SOD SUCCI 40 MG/ML 1 ML VIAL IV SCH ×3 (08:13→22:59)
[2022-09-09] MEDS: FUROSEMIDE 20 MG TAB PO SCH (08:13)
[2022-09-09] MEDS: METOPROLOL SUCCINATE (ER) 25 MG TAB.ER.24H PO SCH (08:13)
[2022-09-09] MEDS: IPRATROPIUM-ALBUTEROL 3 ML NEB INHALATION SCH ×4 (09:48→20:36)
--- NOTE | 2022-09-09 11:05 | P.PN ---
Subjective Progress Note Date: 09/09/22 This is a pleasant 72-year-old male patient who has a history of coronary artery disease with previous stent placement, ischemic cardiomyopathy status post AICD/permanent pacemaker implantation, atrial fibrillation anticoagulated with Eliquis, hyperlipidemia, hypertension, chronic bronchial asthma, smoking just an occasional cigar. He had been having issues with increasing shortness of breath cough and congestion for approximately 6 months now. He had been seen in our office by Dr. Cedeño and initiated on Trilogy and 2 rounds of prednisone taper and antibiotics. Not much improvement. Chest x-ray at that time showed no acute pulmonary process. He was seen by his PCP who also gave him a round of antibiotics and steroids without much improvement. He presented here to the emergency room yesterday for the same. He is seen today in consultation in the emergency department. He is currently sitting up in a stretcher. Awake and alert in no acute distress. Maintaining O2 saturations in the upper 90s on 1 L/m per nasal cannula. Afebrile. Hemodynamically stable. He does have a loose productive cough of clear phlegm production. Chest x-ray again shows no acute cardiopulmonary process. EKG reveals sinus rhythm. White count 6.8. Hemoglobin 10.7. Platelet count 340. Sodium 137. Potassium 3.7. Bicarb 24. BUN 20. Creatinine 1.33. Glucose 110. Troponin negative 2. ProBNP 60. The patient is seen today 09/05/2022 in follow-up on the regular medical floor. He is currently sitting up in bed. Awake and alert in no acute distress. Continues with a loose productive cough of clear sputum. No fever chills. No hemoptysis. Maintaining good O2 saturations in the 90s on 1 L/m per nasal cannula. He's afebrile. Hemodynamically stable. White count 7.8. Hemoglobin 10.6. Platelets 432. Sodium 136. Potassium 4.3. BUN 19. Creatinine 1.24. Glucose 129. Pro-calcitonin 0.20. He is continued on DuoNeb inhalations, Pulmicort and Perforomist inhalations, IV Solu-Medrol. The patient is seen today 09/06/2022 in follow-up on the regular medical floor. He is resting comfortably in bed. Awake and alert in no acute distress. He continues with some dyspnea on conversation. Dyspnea on exertion. Has a loose nonproductive cough. Not feeling much better today. Echocardiogram revealed moderate to severe global hypokinesis with an ejection fraction of 35-40%. Mild tricuspid regurg. Mild to moderate aortic regurg. White count 13.0. Hemoglobin 10.2. Platelets 428. Sodium 134. Potassium 4.7. Bicarb 27. BUN 20. Creatinine 1.13. He is continued on Augmentin, DuoNeb inhalations, Pulmicort and Perforomist inhalations, IV Solu-Medrol. Anticoagulated with Jocelin efrem. Remains on oral diuretics. Currently in a -1 L balance. The patient is seen today 09/07/2022 in follow-up on the regular medical floor. Currently sitting up in bed. Awake and alert in no acute distress. Maintaining O2 saturations in the 90s on 1.5 L/m per nasal cannula. No IV fluids. Continues with a loose nonproductive cough. White count 13.2. He will then 10.6. Platelets 465. Sodium 134. Potassium 4.6. Bicarb 26. BUN 23. Creatinine 1.18. Glucose 128. He is continued on DuoNeb inhalations, Pulmicort and Perforomist inhalations, IV Solu-Medrol. Antibiotics in the form of Augmentin. Anticoagulated with Eliquis. He is nothing by mouth. Plan is for bronchoscopy with BAL today. The patient was seen today 09/08/2022 in follow-up on the regular medical floor. He is currently sitting up in a chair at the bedside. Awake and alert in no acute distress. Breathing easier today compared to yesterday. He did undergo bronchoscopy with BAL yesterday, fluid cytology and cultures pending. White count 11.5. Hemoglobin 10.4. Platelets 474. Sodium 133. Potassium 4.6. Bicarb 26. BUN 26. Creatinine 1.14. Glucose 124. He is continued on DuoNeb inhalations, perform a simple Pulmicort inhalations, IV Solu-Medrol. Antibiotics in the form of Augmentin. Remains on oral diuretics. The patient is seen today 09/09/2022 in follow-up on the regular medical floor. He is resting comfortably in bed. Awake and alert in no acute distress. He states he is breathing easier today compared to yesterday. Remains on 1-1/2 L of nasal cannula oxygen. Lungs sounds have improved. He is status post bronchoscopy with BAL. Cultures and cytology pending. He remains on Augmentin, bronchodilators, Solu-Medrol. He is continued on diuretics. Currently in a negative balance. Anticoagulant with Eliquis. White count 11.5. Hemoglobin 10.7. Sodium 132. Potassium 4.6. Bicarb 26. BUN 24. Creatinine 1.02. Glucose 114. Objective - Vital Signs Vital signs: Vital Signs Temp 97.7 F 09/09/22 07:00 Pulse 60 09/09/22 07:00 Resp 16 09/09/22 07:00 BP 116/71 09/09/22 07:00 Pulse Ox 98 09/09/22 07:00 FiO2 Intake & Output 09/08/22 09/09/22 09/09/22 18:59 06:59 18:59 Intake Total 118 240 Output Total 450 175 Balance -332 -175 240 Weight 95.254 kg Intake: Oral 118 240 Output: Urine 450 175 Other: Voiding Method Urinal Urinal Urinal # Voids 1 - Exam GENERAL EXAM: Alert, pleasant 72-year-old male, on 1.5 L nasal cannula, resting in bed, comfortable in no apparent distress. HEAD: Normocephalic. EYES: Normal reaction of pupils, equal size. NOSE: Clear with pink turbinates. THROAT: No erythema or exudates. NECK: No masses, no JVD. CHEST: No chest wall deformity. LUNGS: Equal air entry with few scattered rhonchi, faint end expiratory wheeze. CVS: S1 and S2 normal with no audible murmur, regular rhythm. ABDOMEN: No hepatosplenomegaly, normal bowel sounds, no guarding or rigidity. SPINE: No scoliosis or deformity SKIN: No rashes CENTRAL NERVOUS SYSTEM: No focal deficits, tone is normal in all 4 extremities. EXTREMITIES: There is no peripheral edema. No clubbing, no cyanosis. Peripheral pulses are intact. - Labs CBC & Chem 7: 09/09/22 06:08 09/09/22 06:08 Labs: Abnormal Lab Results - Last 24 Hours (Table) 09/09/22 09/09/22 Range/Units 06:08 06:08 WBC 11.5 H (3.8-10.6) k/uL Hgb 10.7 L (13.0-17.5) gm/dL Hct 34.9 L (39.0-53.0) % MCH 24.9 L (25.0-35.0) pg MCHC 30.7 L (31.0-37.0) g/dL RDW 17.4 H (11.5-15.5) % Plt Count 500 H (150-450) k/uL Neutrophils # 9.9 H (1.3-7.7) k/uL Lymphocytes # 0.9 L (1.0-4.8) k/uL Sodium 132 L (137-145) mmol/L BUN 24 H (9-20) mg/dL Glucose 114 H (74-99) mg/dL Total Protein 6.2 L (6.3-8.2) g/dL Assessment and Plan Assessment: Acute exacerbation of mild intermittent chronic bronchial asthma. Chest x-ray revealed no acute pulmonary process. ProCalcitonin 0.20. Status post bronchoscopy with BAL and 09/07/2022. Cultures and cytology pending. Occasional cigar smoking, otherwise nonsmoker of cigarettes Coronary artery disease with previous stent placement Paroxysmal atrial fibrillation anti-coagulated with Eliquis Ischemic cardiomyopathy status post AICD placement History of hypertension Hyperlipidemia Hearing disorder History of CVA/TIA History of iron deficiency anemia History of gout Plan: The patient was seen and evaluated Labs and medications reviewed Continue the current treatment plan Titrate down the FiO2 as tolerated We will continue to follow I have personally seen and examined the patient, performed the documentation and the assessment and plan as written. Number of minutes spent on the visit: 10.
--- NOTE | 2022-09-09 11:11 | P.PN ---
Subjective Progress Note Date: 09/09/22 Rayray Stewart, he is a 72-year-old male who presented to [facility] emergency room with a chief complaint of chest pain, patient also thinks that his defibrillator has fired prior to admission. He was evaluated in the emergency room vital examination on presentation revealed a temperature of 98.2 pulse 82 respiration 24 blood pressure 146/85 pulse ox 99% on room air Laboratory data revealed a white blood count of 6.8 hemoglobin 10.7 platelet count 340 sodium 137 potassium 3.7 chloride 103 CO2 24 BUN 20 creatinine 1.33 troponin level was 0.0-4 he troponin 0.2 Testing in the emergency room revealed chest x-ray done in the emergency room revealed no acute cardiopulmonary process, EKG done in the emergency room revealed sinus rhythm with left axis deviation and left ventricular hypertrophy Patient was admitted to medical floor for further evaluation and treatment On 09/05/2022 patient is alert and oriented 3. Patient reports some improvement. Patient remains on IV Solu-Medrol medication adjusted per cardiology including initiation of entresto. Discussed with cardiology nurse practitioner that patient reported he felt his AICD fire off to PCP in office. Patient denies chest pain or shortness breath. Patient denies nausea vomiting or diarrhea. Patient denies any urinary burning or frequency On 09/06/2022 patient was seen and examined on the medical floor he is alert and oriented 3 in no apparent distress there is no fever or chills no headache or dizziness no chest pain he is still having shortness of breath with any activity and cough there is no nausea or vomiting no abdominal pain no diarrhea no blood in the stools no burning with urination no frequency or urgency and no hematuria. Plan for pulmonary disease to proceed with bronchoscopy in a.m. tomorrow On 09/07/2022 and 3 patient is alert and oriented 3. Patient still having some shortness of breath. Completed bronchoscopy today per pulmonary patient remains on IV Solu-Medrol. Current vital signs temp 98.1 heart rate 70, pulse ox 99% on 1 L and blood pressure 143/82 On 09/08/2022 patient was seen and examined on the medical floor, he is alert and oriented 3 in no apparent distress he is complaining of cough, otherwise he denies any complaints there is no fever or chills no headache or dizziness no chest pain no shortness of breath no nausea or vomiting no abdominal pain no diarrhea and no urinary symptoms. Mucinex was added to her regimen, physical therapy and occupational therapy consulted will follow closely. On 09/09/2022 patient is alert and oriented 3 still planning of some cough and shortness breath. Current vital signs temp 97.7, heart rate 60, straight 60, blood pressure 116/71 pulse ox of 98% on 1.5 L. Patient remains on IV Solu- Medrol, DuoNeb breathing treatments and Augmentin. Pulmonary services are following Objective - Vital Signs Vital signs: Vital Signs Temp 97.7 F 09/09/22 07:00 Pulse 60 09/09/22 07:00 Resp 16 09/09/22 07:00 BP 116/71 09/09/22 07:00 Pulse Ox 98 09/09/22 07:00 FiO2 Intake & Output 09/08/22 09/09/22 09/09/22 18:59 06:59 18:59 Intake Total 118 240 Output Total 450 175 Balance -332 -175 240 Weight 95.254 kg Intake: Oral 118 240 Output: Urine 450 175 Other: Voiding Method Urinal Urinal Urinal # Voids 1 - Exam In general patient is alert and oriented x 3 in no distress HEENT head normocephalic and atraumatic Neck is supple no JVD no goiter no lymphadenopathy no carotid bruit Chest examination is clear to auscultation no crackles no wheezing Cardiac exam reveals regular heart sounds S1 and S2 no gallops no murmurs Abdomen is soft nontender no organomegaly with normal bowel sounds Extremity exam reveals no edema no cyanosis or clubbing Neurological examination reveals no gross focal deficits - Labs CBC & Chem 7: 09/09/22 06:08 09/09/22 06:08 Labs: Abnormal Lab Results - Last 24 Hours (Table) 09/09/22 09/09/22 Range/Units 06:08 06:08 WBC 11.5 H (3.8-10.6) k/uL Hgb 10.7 L (13.0-17.5) gm/dL Hct 34.9 L (39.0-53.0) % MCH 24.9 L (25.0-35.0) pg MCHC 30.7 L (31.0-37.0) g/dL RDW 17.4 H (11.5-15.5) % Plt Count 500 H (150-450) k/uL Neutrophils # 9.9 H (1.3-7.7) k/uL Lymphocytes # 0.9 L (1.0-4.8) k/uL Sodium 132 L (137-145) mmol/L BUN 24 H (9-20) mg/dL Glucose 114 H (74-99) mg/dL Total Protein 6.2 L (6.3-8.2) g/dL Assessment and Plan Plan: Episode of chest pain and shortness of breath Patient feeling that his AICD may have fired Underlying history of coronary artery disease with history of angioplasty and stent placement to the RCA in 2021 Underlying history of ischemic cardiomyopathy with AICD placement in 2012 Underlying history of hypertension Underlying history of hyperlipidemia Underlying history of chronic kidney disease stage III Underlying history of paroxysmal atrial fibrillation maintained on Eliquis At this time patient will be admitted to telemetry floor Home medications reviewed and reordered Echocardiogram ordered cardiology consultation was requested Plans for bronchoscopy today 09/07/2022 Will follow closely
[2022-09-09] MEDS: FORMOTEROL FUMARATE 20 MCG/2 ML NEBU INHALATION SCH ×2 (12:14→20:36)
[2022-09-09] MEDS: BUDESONIDE 1 MG/2 ML NEBU INHALATION SCH ×2 (12:14→20:36)
[2022-09-10] MEDS: PANTOPRAZOLE 40 MG TABLET PO SCH ×2 (05:52→17:33)
[2022-09-10 06:11] LABS: Anisocytosis Slight; Basophils % (A) 0 %; Eosinophils % (A) 0 %; HCT 36.3 % (39.0-53.0); Hypochromasia Moderate; Lymphocytes # (A) 0.8 k/uL (1.0-4.8); Lymphocytes % (A) 6 %; MCH 24.7 pg (25.0-35.0); MCHC 30.3 g/dL (31.0-37.0); MCV 81.5 fL (80.0-100.0); Mean Platelet Volume 7.4; Microcytosis Slight; Monocytes # (A) 0.9 k/uL (0-1.0); Monocytes % (A) 7 %; Neutrophils # (A) 11.5 k/uL (1.3-7.7); Neutrophils % (A) 86 %; Platelet Count 489 k/uL (150-450); RBC 4.45 m/uL (4.30-5.90); RDW 17.3 % (11.5-15.5); WBC 13.4 k/uL (3.8-10.6)
[2022-09-10 06:26] LABS: ALT 45 U/L (4-49); AST 25 U/L (17-59); African American GFR (CKD) 68 (>60 ml/min/1.73 sqM); Albumin 3.5 g/dL (3.5-5.0); Albumin/Globulin Ratio 1.3; Alkaline Phosphatase 87 U/L (38-126); Anion Gap 5 mmol/L; Blood Urea Nitrogen 24 mg/dL (9-20); Calcium 8.8 mg/dL (8.4-10.2); Carbon Dioxide 26 mmol/L (22-30); Chloride 100 mmol/L (98-107); Globulin 2.6 g/dL; Glucose 122 mg/dL (74-99); Non-African American GFR(CKD) 59 (>60 ml/min/1.73 sqM); Potassium 4.7 mmol/L (3.5-5.1); Sodium 131 mmol/L (137-145); Total Bilirubin 0.3 mg/dL (0.2-1.3); Total Protein 6.1 g/dL (6.3-8.2)
[2022-09-10] MEDS: guaiFENesin 600 MG TABLET.ER PO SCH ×2 (08:08→20:39)
[2022-09-10] MEDS: methylPREDNISolone SOD SUCCI 40 MG/ML 1 ML VIAL IV SCH ×2 (08:08→16:17)
[2022-09-10] MEDS: FORMOTEROL FUMARATE 20 MCG/2 ML NEBU INHALATION SCH ×2 (08:23→20:03)
[2022-09-10] MEDS: IPRATROPIUM-ALBUTEROL 3 ML NEB INHALATION SCH ×4 (08:24→20:03)
[2022-09-10] MEDS: BUDESONIDE 1 MG/2 ML NEBU INHALATION SCH ×2 (08:24→20:02)
[2022-09-10] MEDS: APIXABAN 5 MG TAB PO SCH ×2 (08:54→20:38)
[2022-09-10] MEDS: ASPIRIN 81 MG PO SCH (08:54)
[2022-09-10] MEDS: SPIRONOLACTONE 25 MG TAB PO SCH (08:54)
[2022-09-10] MEDS: ATORVASTATIN 20 MG TAB PO SCH (08:54)
[2022-09-10] MEDS: METOPROLOL SUCCINATE (ER) 25 MG TAB.ER.24H PO SCH (08:54)
[2022-09-10] MEDS: FUROSEMIDE 20 MG TAB PO SCH (08:55)
[2022-09-10] MEDS: AMIODARONE 200 MG TAB PO SCH (08:55)
[2022-09-10] MEDS: AMOXIC-POT CLAV 875-125MG 1 EACH TAB PO SCH ×2 (08:55→20:38)
[2022-09-10] MEDS: SACUBITRIL/VALSARTAN 24 MG-26 MG TABLET PO SCH ×2 (08:55→20:38)
[2022-09-10] MEDS: DAPAGLIFLOZIN PROPANEDIOL 10 MG TABLET PO SCH (08:55)
[2022-09-10] MEDS: BENZONATATE 100 MG CAP PO SCH ×3 (09:28→20:39)
--- NOTE | 2022-09-10 14:18 | P.PN ---
Subjective Progress Note Date: 09/10/22 This is a pleasant 72-year-old male patient who has a history of coronary artery disease with previous stent placement, ischemic cardiomyopathy status post AICD/permanent pacemaker implantation, atrial fibrillation anticoagulated with Eliquis, hyperlipidemia, hypertension, chronic bronchial asthma, smoking just an occasional cigar. He had been having issues with increasing shortness of breath cough and congestion for approximately 6 months now. He had been seen in our office by Dr. Cedeño and initiated on Trilogy and 2 rounds of prednisone taper and antibiotics. Not much improvement. Chest x-ray at that time showed no acute pulmonary process. He was seen by his PCP who also gave him a round of antibiotics and steroids without much improvement. He presented here to the emergency room yesterday for the same. He is seen today in consultation in the emergency department. He is currently sitting up in a stretcher. Awake and alert in no acute distress. Maintaining O2 saturations in the upper 90s on 1 L/m per nasal cannula. Afebrile. Hemodynamically stable. He does have a loose productive cough of clear phlegm production. Chest x-ray again shows no acute cardiopulmonary process. EKG reveals sinus rhythm. White count 6.8. Hemoglobin 10.7. Platelet count 340. Sodium 137. Potassium 3.7. Bicarb 24. BUN 20. Creatinine 1.33. Glucose 110. Troponin negative 2. ProBNP 60. The patient is seen today 09/05/2022 in follow-up on the regular medical floor. He is currently sitting up in bed. Awake and alert in no acute distress. Continues with a loose productive cough of clear sputum. No fever chills. No hemoptysis. Maintaining good O2 saturations in the 90s on 1 L/m per nasal cannula. He's afebrile. Hemodynamically stable. White count 7.8. Hemoglobin 10.6. Platelets 432. Sodium 136. Potassium 4.3. BUN 19. Creatinine 1.24. Glucose 129. Pro-calcitonin 0.20. He is continued on DuoNeb inhalations, Pulmicort and Perforomist inhalations, IV Solu-Medrol. The patient is seen today 09/06/2022 in follow-up on the regular medical floor. He is resting comfortably in bed. Awake and alert in no acute distress. He continues with some dyspnea on conversation. Dyspnea on exertion. Has a loose nonproductive cough. Not feeling much better today. Echocardiogram revealed moderate to severe global hypokinesis with an ejection fraction of 35-40%. Mild tricuspid regurg. Mild to moderate aortic regurg. White count 13.0. Hemoglobin 10.2. Platelets 428. Sodium 134. Potassium 4.7. Bicarb 27. BUN 20. Creatinine 1.13. He is continued on Augmentin, DuoNeb inhalations, Pulmicort and Perforomist inhalations, IV Solu-Medrol. Anticoagulated with E liquis. Remains on oral diuretics. Currently in a -1 L balance. The patient is seen today 09/07/2022 in follow-up on the regular medical floor. Currently sitting up in bed. Awake and alert in no acute distress. Maintaining O2 saturations in the 90s on 1.5 L/m per nasal cannula. No IV fluids. Continues with a loose nonproductive cough. White count 13.2. He will then 10.6. Platelets 465. Sodium 134. Potassium 4.6. Bicarb 26. BUN 23. Creatinine 1.18. Glucose 128. He is continued on DuoNeb inhalations, Pulmicort and Perforomist inhalations, IV Solu-Medrol. Antibiotics in the form of Augmentin. Anticoagulated with Eliquis. He is nothing by mouth. Plan is for bronchoscopy with BAL today. The patient was seen today 09/08/2022 in follow-up on the regular medical floor. He is currently sitting up in a chair at the bedside. Awake and alert in no acute distress. Breathing easier today compared to yesterday. He did undergo bronchoscopy with BAL yesterday, fluid cytology and cultures pending. White count 11.5. Hemoglobin 10.4. Platelets 474. Sodium 133. Potassium 4.6. Bicarb 26. BUN 26. Creatinine 1.14. Glucose 124. He is continued on DuoNeb inhalations, perform a simple Pulmicort inhalations, IV Solu-Medrol. Antibiotics in the form of Augmentin. Remains on oral diuretics. The patient is seen today 09/09/2022 in follow-up on the regular medical floor. He is resting comfortably in bed. Awake and alert in no acute distress. He states he is breathing easier today compared to yesterday. Remains on 1-1/2 L of nasal cannula oxygen. Lungs sounds have improved. He is status post bronchoscopy with BAL. Cultures and cytology pending. He remains on Augmentin, bronchodilators, Solu-Medrol. He is continued on diuretics. Currently in a negative balance. Anticoagulant with Eliquis. White count 11.5. Hemoglobin 10.7. Sodium 132. Potassium 4.6. Bicarb 26. BUN 24. Creatinine 1.02. Glucose 114. On 09/11/2019, the patient has no specific complaints, and the patient is, comfortable. Still on bronchodilators and Augmentin and IV Solu-Medrol. He is known to have CAD, ischemic myopathy and the patient has an AICD in place and the patient is chronic A. fib with anticoagulation with Eliquis along with history of hypertension hyperlipidemia and bronchial asthma. The vesicles of 15.4 with a hemoglobin of 11, BUN is 24 with a creatinine of 1.2 and a sodium levels of 131. Bronchoscopy was done and has been yielded no microbial growth. Objective - Vital Signs Vital signs: Vital Signs Temp 98.6 F 09/10/22 07:00 Pulse 70 09/10/22 12:11 Resp 16 09/10/22 07:00 BP 113/72 09/10/22 07:00 Pulse Ox 99 09/10/22 08:26 FiO2 Intake & Output 09/09/22 09/10/22 09/10/22 18:59 06:59 18:59 Intake Total 720 418 Output Total 501 900 Balance 219 -900 418 Intake: Oral 720 418 Output: Urine 500 900 Stool 1 Other: Voiding Method Urinal Urinal # Voids 3 3 - Exam GENERAL EXAM: Alert, pleasant 72-year-old male, on 1.5 L nasal cannula, resting in bed, comfortable in no apparent distress. HEAD: Normocephalic. EYES: Normal reaction of pupils, equal size. NOSE: Clear with pink turbinates. THROAT: No erythema or exudates. NECK: No masses, no JVD. CHEST: No chest wall deformity. LUNGS: Equal air entry with few scattered rhonchi, faint end expiratory wheeze. CVS: S1 and S2 normal with no audible murmur, regular rhythm. ABDOMEN: No hepatosplenomegaly, normal bowel sounds, no guarding or rigidity. SPINE: No scoliosis or deformity SKIN: No rashes CENTRAL NERVOUS SYSTEM: No focal deficits, tone is normal in all 4 extremities. EXTREMITIES: There is no peripheral edema. No clubbing, no cyanosis. Peripheral pulses are intact. - Labs CBC & Chem 7: 09/10/22 05:41 09/10/22 05:41 Labs: Abnormal Lab Results - Last 24 Hours (Table) 09/10/22 09/10/22 Range/Units 05:41 05:41 WBC 13.4 H (3.8-10.6) k/uL Hgb 11.0 L (13.0-17.5) gm/dL Hct 36.3 L (39.0-53.0) % MCH 24.7 L (25.0-35.0) pg MCHC 30.3 L (31.0-37.0) g/dL RDW 17.3 H (11.5-15.5) % Plt Count 489 H (150-450) k/uL Neutrophils # 11.5 H (1.3-7.7) k/uL Lymphocytes # 0.8 L (1.0-4.8) k/uL Sodium 131 L (137-145) mmol/L BUN 24 H (9-20) mg/dL Glucose 122 H (74-99) mg/dL Total Protein 6.1 L (6.3-8.2) g/dL Microbiology - Last 24 Hours (Table) 09/07/22 14:00 Gram Stain - Final Bronchial Washings - Right Bronchial Washings Culture - Final Assessment and Plan Plan: Acute exacerbation of mild intermittent chronic bronchial asthma. Chest x-ray revealed no acute pulmonary process. ProCalcitonin 0.20. Status post bronchoscopy with BAL and 09/07/2022. Cultures and cytology pending. Occasional cigar smoking, otherwise nonsmoker of cigarettes Coronary artery disease with previous stent placement Paroxysmal atrial fibrillation anti-coagulated with Eliquis Ischemic cardiomyopathy status post AICD placement History of hypertension Hyperlipidemia Hearing disorder History of CVA/TIA History of iron deficiency anemia History of gout Plan Clinically stable Continue DuoNeb Continue Augmentin Continue IV Solu-Medrol and transitioned the patient to a prednisone burst taper home O2 Anti-coagulation with Eliquis We'll follow
--- NOTE | 2022-09-10 15:27 | CDI ---
Documentation Clarification Form Date: 09/10/2022 From: Hui Simon Phone: [phone] Admit Date: 09/03/2022 10:16:00 PM Patient Name: Rayray Stewart Visit Number: [id number] ATTENTION: The Clinical Documentation Specialists (CDI) and [facility] Coding Staff appreciate your assistance in clarifying documentation. Please respond to the clarification below the line at the bottom and electronically sign. The CDI & [facility] Coding staff will review the response and follow-up if needed. Please note: Queries are made part of the Legal Health Record. If you have any questions, please contact the author of this message via ITS. Dr. Roxanna Patel Your patient has shortness of breath, cough and congestion noted in the record. Based on this information and the findings below, is there an additional diagnosis that is clinically appropriate for this patient? History/Risk Factors: Pt has been c/o shortness of breath, cough and congestion for about 6 months per the pulm consult. Tobacco use: occasional cigar smoking Home oxygen: evaluated this admission and will be discharged w/ home O2 Pulse oximetry:09/03 @ 2212 94% on RA, 09/03 @ 2324 98% on 22L NC, 09/10 99% on 1.5L NC Lung assessment 09/04: SOB w/ activity, productive congested cough w/ creamy thick white sputum Proc 09/07: Bronchoscopy, airway examination, therapeutic lavage, bronchoalveolar lavage, BAL of RML Post-op diagnosis: COPD/asthma exac, retained secretions Treatment: DuoNeb SVN, IV Solumedrol, Pulmicort, Perforomist, supplemental O2 Is there an additional diagnosis that is clinically appropriate for this patient? [ ] Acute Hypoxic Respiratory Failure (pO2 <60 mm Hg or SpO2 <91% on room air) [ x ] Acute Hypercapnic Respiratory Failure (pCO2 >50 and pH <7.35) [ ] Acute on Chronic Respiratory Failure [ ] Chronic Respiratory Failure [ ] Other Diagnosis, please specify [ ] Unable to determine (Template Last Revised: May 2020) MTDD
--- NOTE | 2022-09-10 15:36 | CDI ---
Documentation Clarification Form Date: 09/10/2022 From: Hui Simon Phone: [phone] Admit Date: 09/03/2022 10:16:00 PM Patient Name: Rayray Stewart Visit Number: [id number] ATTENTION: The Clinical Documentation Specialists (CDI) and [facility] Coding Staff appreciate your assistance in clarifying documentation. Please respond to the clarification below the line at the bottom and electronically sign. The CDI & [facility] Coding staff will review the response and follow-up if needed. Please note: Queries are made part of the Legal Health Record. If you have any questions, please contact the author of this message via ITS. Dr. Andrew Skinner Your patient has the documented diagnosis of unspecified CHF. Additional information regarding the type of CHF is requested. History/Risk Factors: 72yo with a h/o CAD s/p stent, HTN, a-fib, HLD, ICMP and CHF BNP 09/03: 60 Echocardiogram Results 09/05: mod to severe global hypokinesis of the LV, EF 35- 40% Chest X Ray 09/03: No acute cardiopulmonary disease/process Treatment: Lasix po, Entresto po, Aldactone po, In your professional opinion, can you please clarify the type of CHF if known? [xx ] Chronic Systolic Heart Failure (reduced EF) [ ] Chronic Diastolic Heart Failure (preserved EF) [ ] Chronic Systolic & Diastolic Heart Failure [ ] Other, please specify [ ] Unable to determine (Template Last Revised: April 2020) MTDD
--- NOTE | 2022-09-10 18:46 | P.PN ---
Subjective Progress Note Date: 09/10/22 Rayray Stewart, he is a 72-year-old male who presented to [facility] emergency room with a chief complaint of chest pain, patient also thinks that his defibrillator has fired prior to admission. He was evaluated in the emergency room vital examination on presentation revealed a temperature of 98.2 pulse 82 respiration 24 blood pressure 146/85 pulse ox 99% on room air Laboratory data revealed a white blood count of 6.8 hemoglobin 10.7 platelet count 340 sodium 137 potassium 3.7 chloride 103 CO2 24 BUN 20 creatinine 1.33 troponin level was 0.0-4 he troponin 0.2 Testing in the emergency room revealed chest x-ray done in the emergency room revealed no acute cardiopulmonary process, EKG done in the emergency room revealed sinus rhythm with left axis deviation and left ventricular hypertrophy Patient was admitted to medical floor for further evaluation and treatment On 09/05/2022 patient is alert and oriented 3. Patient reports some improvement. Patient remains on IV Solu-Medrol medication adjusted per cardiology including initiation of entresto. Discussed with cardiology nurse practitioner that patient reported he felt his AICD fire off to PCP in office. Patient denies chest pain or shortness breath. Patient denies nausea vomiting or diarrhea. Patient denies any urinary burning or frequency On 09/06/2022 patient was seen and examined on the medical floor he is alert and oriented 3 in no apparent distress there is no fever or chills no headache or dizziness no chest pain he is still having shortness of breath with any activity and cough there is no nausea or vomiting no abdominal pain no diarrhea no blood in the stools no burning with urination no frequency or urgency and no hematuria. Plan for pulmonary disease to proceed with bronchoscopy in a.m. tomorrow On 09/07/2022 and 3 patient is alert and oriented 3. Patient still having some shortness of breath. Completed bronchoscopy today per pulmonary patient remains on IV Solu-Medrol. Current vital signs temp 98.1 heart rate 70, pulse ox 99% on 1 L and blood pressure 143/82 On 09/08/2022 patient was seen and examined on the medical floor, he is alert and oriented 3 in no apparent distress he is complaining of cough, otherwise he denies any complaints there is no fever or chills no headache or dizziness no chest pain no shortness of breath no nausea or vomiting no abdominal pain no diarrhea and no urinary symptoms. Mucinex was added to her regimen, physical therapy and occupational therapy consulted will follow closely. On 09/09/2022 patient is alert and oriented 3 still planning of some cough and shortness breath. Current vital signs temp 97.7, heart rate 60, straight 60, blood pressure 116/71 pulse ox of 98% on 1.5 L. Patient remains on IV Solu- Medrol, DuoNeb breathing treatments and Augmentin. Pulmonary services are following On 09/10/2022 patient was seen and examined on the medical floor, he is alert and oriented 3 in no apparent distress he is complaining of cough, otherwise he denies any complaints there is no fever or chills no headache or dizziness no chest pain no shortness of breath no nausea or vomiting no abdominal pain no diarrhea and no urinary symptoms. Mucinex was added to her regimen, physical therapy and occupational therapy consulted will follow closely. Possible discharge to home tomorrow Objective - Vital Signs Vital signs: Vital Signs Temp 98.6 F 09/10/22 07:00 Pulse 72 09/10/22 08:43 Resp 16 09/10/22 07:00 BP 113/72 09/10/22 07:00 Pulse Ox 99 09/10/22 08:26 FiO2 Intake & Output 09/09/22 09/10/22 09/10/22 18:59 06:59 18:59 Intake Total 720 418 Output Total 501 900 Balance 219 -900 418 Intake: Oral 720 418 Output: Urine 500 900 Stool 1 Other: Voiding Method Urinal Urinal # Voids 3 3 - Exam In general patient is alert and oriented x 3 in no distress HEENT head normocephalic and atraumatic Neck is supple no JVD no goiter no lymphadenopathy no carotid bruit Chest examination is clear to auscultation no crackles no wheezing Cardiac exam reveals regular heart sounds S1 and S2 no gallops no murmurs Abdomen is soft nontender no organomegaly with normal bowel sounds Extremity exam reveals no edema no cyanosis or clubbing Neurological examination reveals no gross focal deficits - Labs CBC & Chem 7: 09/10/22 05:41 09/10/22 05:41 Labs: Abnormal Lab Results - Last 24 Hours (Table) 09/10/22 09/10/22 Range/Units 05:41 05:41 WBC 13.4 H (3.8-10.6) k/uL Hgb 11.0 L (13.0-17.5) gm/dL Hct 36.3 L (39.0-53.0) % MCH 24.7 L (25.0-35.0) pg MCHC 30.3 L (31.0-37.0) g/dL RDW 17.3 H (11.5-15.5) % Plt Count 489 H (150-450) k/uL Neutrophils # 11.5 H (1.3-7.7) k/uL Lymphocytes # 0.8 L (1.0-4.8) k/uL Sodium 131 L (137-145) mmol/L BUN 24 H (9-20) mg/dL Glucose 122 H (74-99) mg/dL Total Protein 6.1 L (6.3-8.2) g/dL Assessment and Plan Plan: Episode of chest pain and shortness of breath Patient feeling that his AICD may have fired Underlying history of coronary artery disease with history of angioplasty and stent placement to the RCA in 2021 Underlying history of ischemic cardiomyopathy with AICD placement in 2012 Underlying history of hypertension Underlying history of hyperlipidemia Underlying history of chronic kidney disease stage III Underlying history of paroxysmal atrial fibrillation maintained on Eliquis At this time patient will be admitted to telemetry floor Home medications reviewed and reordered Echocardiogram ordered cardiology consultation was requested Plans for bronchoscopy today 09/07/2022 Will follow closely
[2022-09-11] MEDS: methylPREDNISolone SOD SUCCI 40 MG/ML 1 ML VIAL IV SCH ×2 (00:38→09:11)
[2022-09-11 05:43] VITALS: TEMP 97.7
[2022-09-11] MEDS: PANTOPRAZOLE 40 MG TABLET PO SCH (05:58)
[2022-09-11] MEDS: IPRATROPIUM-ALBUTEROL 3 ML NEB INHALATION SCH ×2 (08:09→12:14)
[2022-09-11] MEDS: BUDESONIDE 1 MG/2 ML NEBU INHALATION SCH (08:09)
[2022-09-11] MEDS: FORMOTEROL FUMARATE 20 MCG/2 ML NEBU INHALATION SCH (08:09)
[2022-09-11] MEDS: ACETAMINOPHEN TAB 325 MG TAB PO PRN (08:11)
[2022-09-11 08:50] VITALS: BP 130/77; RESP 16
[2022-09-11] MEDS: METOPROLOL SUCCINATE (ER) 25 MG TAB.ER.24H PO SCH (09:11)
[2022-09-11] MEDS: ASPIRIN 81 MG PO SCH (09:12)
[2022-09-11] MEDS: ATORVASTATIN 20 MG TAB PO SCH (09:12)
[2022-09-11] MEDS: SACUBITRIL/VALSARTAN 24 MG-26 MG TABLET PO SCH (09:12)
[2022-09-11] MEDS: guaiFENesin 600 MG TABLET.ER PO SCH (09:12)
[2022-09-11] MEDS: FUROSEMIDE 20 MG TAB PO SCH (09:12)
[2022-09-11] MEDS: SPIRONOLACTONE 25 MG TAB PO SCH (09:12)
[2022-09-11] MEDS: BENZONATATE 100 MG CAP PO SCH (09:12)
[2022-09-11] MEDS: APIXABAN 5 MG TAB PO SCH (09:12)
[2022-09-11] MEDS: AMIODARONE 200 MG TAB PO SCH (09:13)
[2022-09-11] MEDS: AMOXIC-POT CLAV 875-125MG 1 EACH TAB PO SCH (09:13)
[2022-09-11] MEDS: DAPAGLIFLOZIN PROPANEDIOL 10 MG TABLET PO SCH (09:13)
[2022-09-11 12:24] VITALS: PULSE 70
--- NOTE | 2022-09-11 12:57 | P.PN ---
Subjective Progress Note Date: 09/11/22 This is a pleasant 72-year-old male patient who has a history of coronary artery disease with previous stent placement, ischemic cardiomyopathy status post AICD/permanent pacemaker implantation, atrial fibrillation anticoagulated with Eliquis, hyperlipidemia, hypertension, chronic bronchial asthma, smoking just an occasional cigar. He had been having issues with increasing shortness of breath cough and congestion for approximately 6 months now. He had been seen in our office by Dr. Cedeño and initiated on Trilogy and 2 rounds of prednisone taper and antibiotics. Not much improvement. Chest x-ray at that time showed no acute pulmonary process. He was seen by his PCP who also gave him a round of antibiotics and steroids without much improvement. He presented here to the emergency room yesterday for the same. He is seen today in consultation in the emergency department. He is currently sitting up in a stretcher. Awake and alert in no acute distress. Maintaining O2 saturations in the upper 90s on 1 L/m per nasal cannula. Afebrile. Hemodynamically stable. He does have a loose productive cough of clear phlegm production. Chest x-ray again shows no acute cardiopulmonary process. EKG reveals sinus rhythm. White count 6.8. Hemoglobin 10.7. Platelet count 340. Sodium 137. Potassium 3.7. Bicarb 24. BUN 20. Creatinine 1.33. Glucose 110. Troponin negative 2. ProBNP 60. The patient is seen today 09/05/2022 in follow-up on the regular medical floor. He is currently sitting up in bed. Awake and alert in no acute distress. Continues with a loose productive cough of clear sputum. No fever chills. No hemoptysis. Maintaining good O2 saturations in the 90s on 1 L/m per nasal cannula. He's afebrile. Hemodynamically stable. White count 7.8. Hemoglobin 10.6. Platelets 432. Sodium 136. Potassium 4.3. BUN 19. Creatinine 1.24. Glucose 129. Pro-calcitonin 0.20. He is continued on DuoNeb inhalations, Pulmicort and Perforomist inhalations, IV Solu-Medrol. The patient is seen today 09/06/2022 in follow-up on the regular medical floor. He is resting comfortably in bed. Awake and alert in no acute distress. He continues with some dyspnea on conversation. Dyspnea on exertion. Has a loose nonproductive cough. Not feeling much better today. Echocardiogram revealed moderate to severe global hypokinesis with an ejection fraction of 35-40%. Mild tricuspid regurg. Mild to moderate aortic regurg. White count 13.0. Hemoglobin 10.2. Platelets 428. Sodium 134. Potassium 4.7. Bicarb 27. BUN 20. Creatinine 1.13. He is continued on Augmentin, DuoNeb inhalations, Pulmicort and Perforomist inhalations, IV Solu-Medrol. Anticoagulated with E liquis. Remains on oral diuretics. Currently in a -1 L balance. The patient is seen today 09/07/2022 in follow-up on the regular medical floor. Currently sitting up in bed. Awake and alert in no acute distress. Maintaining O2 saturations in the 90s on 1.5 L/m per nasal cannula. No IV fluids. Continues with a loose nonproductive cough. White count 13.2. He will then 10.6. Platelets 465. Sodium 134. Potassium 4.6. Bicarb 26. BUN 23. Creatinine 1.18. Glucose 128. He is continued on DuoNeb inhalations, Pulmicort and Perforomist inhalations, IV Solu-Medrol. Antibiotics in the form of Augmentin. Anticoagulated with Eliquis. He is nothing by mouth. Plan is for bronchoscopy with BAL today. The patient was seen today 09/08/2022 in follow-up on the regular medical floor. He is currently sitting up in a chair at the bedside. Awake and alert in no acute distress. Breathing easier today compared to yesterday. He did undergo bronchoscopy with BAL yesterday, fluid cytology and cultures pending. White count 11.5. Hemoglobin 10.4. Platelets 474. Sodium 133. Potassium 4.6. Bicarb 26. BUN 26. Creatinine 1.14. Glucose 124. He is continued on DuoNeb inhalations, perform a simple Pulmicort inhalations, IV Solu-Medrol. Antibiotics in the form of Augmentin. Remains on oral diuretics. The patient is seen today 09/09/2022 in follow-up on the regular medical floor. He is resting comfortably in bed. Awake and alert in no acute distress. He states he is breathing easier today compared to yesterday. Remains on 1-1/2 L of nasal cannula oxygen. Lungs sounds have improved. He is status post bronchoscopy with BAL. Cultures and cytology pending. He remains on Augmentin, bronchodilators, Solu-Medrol. He is continued on diuretics. Currently in a negative balance. Anticoagulant with Eliquis. White count 11.5. Hemoglobin 10.7. Sodium 132. Potassium 4.6. Bicarb 26. BUN 24. Creatinine 1.02. Glucose 114. On 09/11/2019, the patient has no specific complaints, and the patient is, comfortable. Still on bronchodilators and Augmentin and IV Solu-Medrol. He is known to have CAD, ischemic myopathy and the patient has an AICD in place and the patient is chronic A. fib with anticoagulation with Eliquis along with history of hypertension hyperlipidemia and bronchial asthma. The vesicles of 15.4 with a hemoglobin of 11, BUN is 24 with a creatinine of 1.2 and a sodium levels of 131. Bronchoscopy was done and has been yielded no microbial growth. On 09/11/2022, the patient has no new complaints. Condition is unchanged. He is on 1.5 L of oxygen by nasal cannula and his pulse ox above 90%. No respiratory distress. No chest pain. No cough or sputum production. No aspiration. Medications remain unchanged. He is post bronchoscopy and lavage was essentially negative for microbial growth. Objective - Vital Signs Vital signs: Vital Signs Temp 97.7 F 09/11/22 07:45 Pulse 70 09/11/22 12:23 Resp 16 09/11/22 07:45 BP 130/77 09/11/22 07:45 Pulse Ox 98 09/11/22 08:13 FiO2 Intake & Output 09/10/22 09/11/22 09/11/22 18:59 06:59 18:59 Intake Total 875 Output Total 550 775 Balance 325 -775 Intake: Oral 875 Output: Urine 550 775 Other: # Voids 0 - Exam GENERAL EXAM: Alert, pleasant 72-year-old male, on 1.5 L nasal cannula, resting in bed, comfortable in no apparent distress. HEAD: Normocephalic. EYES: Normal reaction of pupils, equal size. NOSE: Clear with pink turbinates. THROAT: No erythema or exudates. NECK: No masses, no JVD. CHEST: No chest wall deformity. LUNGS: Equal air entry with few scattered rhonchi, faint end expiratory wheeze. CVS: S1 and S2 normal with no audible murmur, regular rhythm. ABDOMEN: No hepatosplenomegaly, normal bowel sounds, no guarding or rigidity. SPINE: No scoliosis or deformity SKIN: No rashes CENTRAL NERVOUS SYSTEM: No focal deficits, tone is normal in all 4 extremities. EXTREMITIES: There is no peripheral edema. No clubbing, no cyanosis. Peripheral pulses are intact. - Labs CBC & Chem 7: 09/10/22 05:41 09/10/22 05:41 Labs: Microbiology - Last 24 Hours (Table) 09/07/22 14:00 Gram Stain - Final Bronchial Washings - Right Bronchial Washings Culture - Final Assessment and Plan Plan: Acute exacerbation of mild intermittent chronic bronchial asthma. Chest x-ray revealed no acute pulmonary process. ProCalcitonin 0.20. Status post bronchoscopy with BAL and 09/07/2022. Cultures and cytology pending. Occasional cigar smoking, otherwise nonsmoker of cigarettes Coronary artery disease with previous stent placement Paroxysmal atrial fibrillation anti-coagulated with Eliquis Ischemic cardiomyopathy status post AICD placement History of hypertension Hyperlipidemia Hearing disorder History of CVA/TIA History of iron deficiency anemia History of gout Plan Discharge patient home on home oxygen Transfer this patient at time of discharge Clinically stable Continue DuoNeb Continue Augmentin, completed 7-10 day course Anti-coagulation with Eliquis We'll follow, possible discharge today
[2022-09-14 13:16] LABS: Appearance,BF Hazy (Clear); RBC, Body Fluid 35750 (0-2000)
[2022-09-14 13:29] LABS: Nucleated Cells, Body Fluid 50 X 10*3/uL
== END 2022-09-11 14:05 | disposition home or self-care (01) | DRG 190 ==
LOC: EC 15:53 → 6NMEDSUR 22:16 → OBSVTOIN 22:16 → 6NMEDSUR 23:08
PROVIDERS: ADMIT Internal Medicine; ATTEND Internal Medicine
PROC: 0B9J8ZX Drainage of Left Lower Lung Lobe, Via Natural or Artificial Opening Endoscopic, Diagnostic (ICD-10-PCS; principal; 2022-09-07 13:25)
PROC: 0B9H8ZX Drainage of Lung Lingula, Via Natural or Artificial Opening Endoscopic, Diagnostic (ICD-10-PCS; principal; 2022-09-07 13:25)
PROC: 0B9C8ZX Drainage of Right Upper Lung Lobe, Via Natural or Artificial Opening Endoscopic, Diagnostic (ICD-10-PCS; principal; 2022-09-07 13:25)
PROC: 0B9M8ZX Drainage of Bilateral Lungs, Via Natural or Artificial Opening Endoscopic, Diagnostic (ICD-10-PCS; principal; 2022-09-07 13:25)
PROC: 0BDD8ZX Extraction of Right Middle Lung Lobe, Via Natural or Artificial Opening Endoscopic, Diagnostic (ICD-10-PCS; principal; 2022-09-07 13:25)
PROC: 0B9G8ZX Drainage of Left Upper Lung Lobe, Via Natural or Artificial Opening Endoscopic, Diagnostic (ICD-10-PCS; principal; 2022-09-07 13:25)
PROC: 0B9F8ZX Drainage of Right Lower Lung Lobe, Via Natural or Artificial Opening Endoscopic, Diagnostic (ICD-10-PCS; principal; 2022-09-07 13:25)
PROC: 0B9D8ZX Drainage of Right Middle Lung Lobe, Via Natural or Artificial Opening Endoscopic, Diagnostic (ICD-10-PCS; principal; 2022-09-07 13:25)
DX: J44.1 Chronic obstructive pulmonary disease with (acute) exacerbation (principal); J96.02 Acute respiratory failure with hypercapnia; I13.0 Hypertensive heart and chronic kidney disease with heart failure and stage 1 through stage 4 chronic kidney disease, or unspecified chronic kidney disease; I48.20 Chronic atrial fibrillation, unspecified; J45.21 Mild intermittent asthma with (acute) exacerbation; I50.22 Chronic systolic (congestive) heart failure; N18.30 Chronic kidney disease, stage 3 unspecified; I25.10 Atherosclerotic heart disease of native coronary artery without angina pectoris; I25.5 Ischemic cardiomyopathy; E78.5 Hyperlipidemia, unspecified; I35.1 Nonrheumatic aortic (valve) insufficiency; I27.20 Pulmonary hypertension, unspecified; H91.90 Unspecified hearing loss, unspecified ear; F41.9 Anxiety disorder, unspecified; F32.A Depression, unspecified; F17.290 Nicotine dependence, other tobacco product, uncomplicated; D63.1 Anemia in chronic kidney disease; I48.0 Paroxysmal atrial fibrillation; D50.9 Iron deficiency anemia, unspecified; M10.9 Gout, unspecified; K44.9 Diaphragmatic hernia without obstruction or gangrene; K64.4 Residual hemorrhoidal skin tags; K21.9 Gastro-esophageal reflux disease without esophagitis; Z87.19 Personal history of other diseases of the digestive system; Z95.810 Presence of automatic (implantable) cardiac defibrillator; Z95.5 Presence of coronary angioplasty implant and graft; Z86.79 Personal history of other diseases of the circulatory system; Z86.73 Personal history of transient ischemic attack (TIA), and cerebral infarction without residual deficits; Z79.899 Other long term (current) drug therapy; Z79.82 Long term (current) use of aspirin; Z79.02 Long term (current) use of antithrombotics/antiplatelets; Z79.01 Long term (current) use of anticoagulants; Z87.01 Personal history of pneumonia (recurrent); Z88.1 Allergy status to other antibiotic agents; Z88.8 Allergy status to other drugs, medicaments and biological substances
CPT/HCPCS: 31624; 36415; 71046; 80048; 80053; 83735; 83880; 84145; 84484; 85025; 85027; 85610; 85730; 87070; 87205; 87252; 87496; 87498; 87502; 87529; 87634; 87798; 88108; 88305; 89050; 93005; 93306; 94640; 94760; 96374; 99285

== ENCOUNTER → 2022-09-18 | Outpatient (CLI) | payer MEDICARE, OTHER ==
[2022-09-18 20:16] LABS: BUN/Creat Ratio 13.17 Ratio (12.00-20.00); Blood Urea Nitrogen 15.8 mg/dL (9.0-27.0); Calcium 9.1 mg/dL (8.7-10.3); Carbon Dioxide 26.1 mmol/L (21.6-31.8); Chloride 102 mmol/L (96-109); Glucose 74 mg/dL (70-110); Potassium 4.6 mmol/L (3.5-5.5); Sodium 140 mmol/L (135-145)
== END | disposition home or self-care (01) ==
LOC: LABWHC1 10:40
PROVIDERS: ATTEND Nurse Practitioner
DX: I10 Essential (primary) hypertension (principal); I25.10 Atherosclerotic heart disease of native coronary artery without angina pectoris
CPT/HCPCS: 36415; 80048

== ENCOUNTER 2022-10-15 13:10 | Observation (INO) | payer MEDICARE, OTHER ==
--- NOTE | 2022-10-15 13:35 | ED ---
General Adult HPI - General Chief complaint: Fall Stated complaint: fall Time Seen by Provider: 10/15/22 13:22 Source: patient, RN/MD, EMS, RN notes reviewed Mode of arrival: EMS Limitations: no limitations - History of Present Illness Initial comments: The patient is a 72-year-old gentleman with a significant cardiac history, pulmonary edema, CHF who presents to emergency room complaints of near syncope and a fall. He complains of left ankle pain after nearly passing out while standing up out of his chair. 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 He states he lost his balance when falling causing him to roll his left ankle. He denies hitting his head or loss consciousness. Patient is on eliquis for a significant cardiac history and pacemaker/defibrillator. He has a history of CHF, hyperlipidemia, COPD, diverticulitis. He denies any preceding symptoms. He denies any dark or tarry stools or cholesterol. Denies cough congestion or fevers. - Related Data Home Medications Medication Instructions Recorded Confirmed Mirtazapine 45 mg PO HS 04/01/14 09/03/22 QUEtiapine [SEROquel] 200 mg PO BID 04/01/14 09/03/22 Spironolactone [Aldactone] 25 mg PO DAILY 04/01/14 09/03/22 Montelukast [Singulair] 10 mg PO HS 07/20/14 09/03/22 Apixaban [Eliquis] 5 mg PO BID 06/02/20 09/03/22 Atorvastatin [Lipitor] 20 mg PO DAILY 06/02/20 09/03/22 Nitroglycerin Sl Tabs [Nitrostat] 0.4 mg SL Q5M PRN 06/06/20 09/03/22 Albuterol Inhaler [Ventolin Hfa 2 puff INHALATION RT-QID PRN 05/29/21 09/03/22 Inhaler] Fluticasone Nasal [place] [Flonase 1 spr EA NOSTRIL DAILY 06/16/21 09/03/22 Nasal [place]] Multivitamins, Thera [Multivitamin 1 tab PO DAILY 05/31/22 09/03/22 (formulary)] Pantoprazole [Protonix] 40 mg PO DAILY 05/31/22 09/03/22 Ergocalciferol (Vitamin D2) 1,250 mcg PO TH 09/03/22 09/03/22 [Drisdol (50,000 Iu)] Fluticasone/Umeclidin/Vilanter 1 puff INHALATION RT-DAILY 09/03/22 09/03/22 [Trelegy Ellipta 100-62.5-25] Sacubitril/Valsartan [Entresto 24 1 tab PO BID 10/15/22 10/15/22 mg-26 mg Tablet] Previous Rx's Medication Instructions Recorded Amiodarone [Cordarone] 200 mg PO BID tab 10/27/21 Aspirin 81 mg PO DAILY tab 10/27/21 Furosemide [Lasix] 20 mg PO DAILY tab 10/27/21 Tamsulosin [Flomax] 0.4 mg PO BID cap 10/27/21 Dapagliflozin Propanediol [Farxiga] 10 mg PO DAILY tab 09/11/22 Ipratropium-Albuterol Nebulize 3 ml INHALATION RT-QID each 09/11/22 [Duoneb 0.5 mg-3 mg/3 ml Soln] Metoprolol Succinate (ER) [Toprol 25 mg PO DAILY tab 09/11/22 XL] Allergies Allergy/AdvReac Type Severity Reaction Status Date / Time Barbiturates Allergy Anaphylaxis Verified 10/15/22 15:12 doxepin Allergy Anaphylaxis Verified 10/15/22 15:12 levofloxacin [From Levaquin] Allergy Dyspnea & Verified 10/15/22 15:12 Leg Swelling and Pain & Headache Review of Systems ROS Statement: Those systems with pertinent positive or pertinent negative responses have been documented in the HPI. ROS Other: All systems not noted in ROS Statement are negative. 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 Stovall, gout bilateral feet, occasional numbness L leg/L great toe, hx of PHIL with CPAP but no longer an issue since wt. 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 History of Any Multi-Drug Resistant Organisms: None Reported Past Surgical History: AICD, Cholecystectomy, Heart Catheterization, Heart Catheterization With Stent, Hernia Repair, Pacemaker, Tonsillectomy Additional Past Surgical History / Comment(s): 07/24/14 EGD/colonoscopy with polypectomy/bx, 2005 AICD/2014 AICD changed to medtronic, 2002 Cardiac stent in [place], 2007 cardiac cath [facility], upper teeth extracted for denture, L ear has tube, R ear plugged, cyst removed L eyelid, bilateral cataract removal, L ganglion cyst removal, L/R inguinal hernia repairs with mesh, penile implant. Past Anesthesia/Blood Transfusion Reactions: No Reported Reaction Date of Last Stent Placement:: 2002 Type of Cardiac Device: AICD Device Placement Date:: 2014 Past Psychological History: Anxiety, Depression Smoking Status: Former smoker Past Alcohol Use History: None Reported Past Drug Use History: None Reported - Past Family History Father Family Medical History: Coronary Artery Disease (CAD), Pneumonia Additional Family Medical History / Comment(s): Father of pneumonia at the age of 82 yrs. Mother Family Medical History: Liver Disease, Renal Disease Additional Family Medical History / Comment(s): father passed after a bout with pneumonia General Exam Limitations: no limitations General appearance: alert, in no apparent distress Head exam: Present: atraumatic, normocephalic, normal inspection Eye exam: Present: normal appearance, PERRL, EOMI. Absent: scleral icterus, conjunctival injection, periorbital swelling ENT exam: Present: normal exam, mucous membranes moist Neck exam: Present: normal inspection. Absent: tenderness, meningismus, lymphadenopathy Respiratory exam: Present: normal lung sounds bilaterally. Absent: respiratory distress, wheezes, rales, rhonchi, stridor Cardiovascular Exam: Present: regular rate, normal rhythm, normal heart sounds, other (pacemaker/defib incision left chest stable). Absent: systolic murmur, diastolic murmur, rubs, gallop, clicks GI/Abdominal exam: Present: soft, normal bowel sounds. Absent: distended, tenderness, guarding, rebound, rigid Extremities exam: Present: normal inspection, full ROM, normal capillary refill, other (pain over left ankle without swelling or ecchymosis). Absent: tenderness, pedal edema, joint swelling, calf tenderness Left Ankle exam: Present: tenderness Back exam: Present: normal inspection Neurological exam: Present: alert, oriented X3, CN II-XII intact, other (NIH 0) Psychiatric exam: Present: normal affect, normal mood Skin exam: Present: warm, dry, intact, normal color. Absent: rash Course Vital Signs 10/15/22 13:15 Temperature 97.4 F L Pulse Rate 73 Respiratory 18 Rate Blood Pressure 116/86 O2 Sat by Pulse 99 Oximetry - Reevaluation(s) Reevaluation #1: 10/15/22 15:18 Patient continues to have dizziness with sitting and standing. Unable to get IV fluids due to his history of CHF and pulmonary edema which he is on oxygen 15/10. the patient was given an aspirin in the ed after head CT was normal. Patient is neurologically intact. NIH 0. I discussed lab and imaging is also the patient. I discussed admission for neurological and cardiac evaluation due to the dizziness and near syncope. Patient will be admitted for further observation EKG Findings - EKG Comments: EKG Findings:: EKG shows sinus rhythm at a rate of 76 bpm nonspecific septal and lateral leads changes with no obvious ST segment elevation. [facility] Medical Decision Making - Medical Decision Making Was pt. sent in by a medical professional or institution (SAADIA Wilkerson, SALES AND PRODUCTION MANAGER, urgent care, hospital, or alf...) When possible be specific @ -No Did you speak to anyone other than the patient for history (EMS, parent, family, police, friend...)? What history was obtained from this source @ -No Did you review nursing and triage notes (agree or disagree)? Why? @ -I reviewed and agree with nursing and triage notes Were old charts reviewed (outside hosp., previous admission, EMS record, old EKG, old radiological studies, urgent care reports/EKG's, alf records)? Report findings @ -yes old charts are reviewed Differential Diagnosis (chest pain, altered mental status, abdominal pain women, abdominal pain men, vaginal bleeding, weakness, fever, dyspnea, syncope, headache, dizziness, GI bleed, back pain, seizure, CVA, palpatations, mental health, musculoskeletal)? @ -Orthostatic hypotension, vertigo, TIA, stroke, AL, CAD, dehydration EKG interpreted by me (3pts min.). @ -EKG shows sinus rhythm at a rate of 76 bpm, nonspecific septal lateral leads changes without any obvious acute ST segment elevation. [facility] X-rays interpreted by me (1pt min.). @ -Hazy and congestion likely consistent with his history of CHF, radiology con firmation for acute changes or underlying pneumonia pending. No obvious fracture seen on the left ankle x-ray. CT interpreted by me (1pt min.). @ -. The head is negative for any obvious mass or hemorrhage however radiology report is pending for confirmation of any acute changes U/S interpreted by me (1pt. min.). @ -None done What testing was considered but not performed or refused? (CT, X-rays, U/S, l abs)? Why? @ -None What meds were considered but not given or refused? Why? @ -The fluids were considered however given patient's history of CHF and pulmonary edema fluids were held at this time. He has a borderline orthostatic hypotension could benefit IV fluids however his history is very risky and we will have the admitting physician further manage this. Did you discuss the management of the patient with other professionals (professionals i.e. , PA, SALES AND PRODUCTION MANAGER, lab, RT, psych nurse, social media assistant, it sales representative, teacher, earth science technical officer, case resource manager)? Give summary @ -Discussed patient's clinical condition, and admission workup and admission with Dr. Manning today. Was smoking cessation discussed for >3mins.? @ -No Was critical care preformed (if so, how long)? @ -No Were there social determinants of health that impacted care today? How? (Homelessness, low income, unemployed, alcoholism, drug addiction, craig sportation, low edu. Level, literacy, decrease access to med. care, snf, rehab)? @ -No Was there de-escalation of care discussed even if they declined (Discuss DNR or withdrawal of care, Hospice)? DNR status @ -No What co-morbidities impacted this encounter? (DM, HTN, Smoking, COPD, CAD, Cancer, CVA, ARF, Chemo, Hep., AIDS, mental health diagnosis, sleep apnea, morbid obesity)? @ -CAD, CHF, pulmonary edema Was patient admitted / discharged? Hospital course, mention meds given and route, prescriptions, significant lab abnormalities, going to OR and other pertinent info. @ -Patient will be admitted to the hospitalist for neurological and cardiac evaluation given the dizziness and borderline orthostatic hypotension. I spoke with Dr. Latif regarding admission. Undiagnosed new problem with uncertain prognosis? @ -Yes Drug Therapy requiring intensive monitoring for toxicity (Heparin, Nitro, Insulin, Cardizem)? @ -No Were any procedures done? @ -No Diagnosis/symptom? @ -Dizziness, near syncope, fall, borderline orthostatic hypotension, left ankle sprain, chest pain Acute, or Chronic, or Acute on Chronic? @ -Acute Uncomplicated (without systemic symptoms) or Complicated (systemic symptoms)? @ -Complicated Side effects of treatment? @ -No Exacerbation, Progression, or Severe Exacerbation? @ -No Poses a threat to life or bodily function? How? (Chest pain, USA, AL, pneumonia, PE, COPD, DKA, ARF, appy, cholecystitis, CVA, Diverticulitis, Homicidal, Suicidal, threat to staff... and all critical care pts) @ -No - Lab Data Result diagrams: 10/15/22 14:00 10/15/22 14:00 Lab Results 10/15/22 10/15/22 10/15/22 Range/Units 14:00 14:00 14:00 WBC 8.1 (3.8-10.6) k/uL RBC 4.23 L (4.30-5.90) m/uL Hgb 10.4 L (13.0-17.5) gm/dL Hct 32.8 L (39.0-53.0) % MCV 77.6 L (80.0-100.0) fL MCH 24.7 L (25.0-35.0) pg MCHC 31.8 (31.0-37.0) g/dL RDW 17.6 H (11.5-15.5) % Plt Count 462 H (150-450) k/uL MPV 7.7 Neutrophils % 65 % Lymphocytes % 23 % Monocytes % 8 % Eosinophils % 2 % Basophils % 0 % Neutrophils # 5.2 (1.3-7.7) k/uL Lymphocytes # 1.9 (1.0-4.8) k/uL Monocytes # 0.6 (0-1.0) k/uL Eosinophils # 0.1 (0-0.7) k/uL Basophils # 0.0 (0-0.2) k/uL Hypochromasia Marked Poikilocytosis Slight Anisocytosis Slight Microcytosis Slight Sodium 137 (137-145) mmol/L Potassium 3.6 (3.5-5.1) mmol/L Chloride 102 (98-107) mmol/L Carbon Dioxide 26 (22-30) mmol/L Anion Gap 9 mmol/L BUN 20 (9-20) mg/dL Creatinine 1.20 (0.66-1.25) mg/dL Est GFR (CKD-EPI)AfAm 70 (>60 ml/min/1.73 sqM) Est GFR (CKD-EPI)NonAf 60 (>60 ml/min/1.73 sqM) Glucose 105 H (74-99) mg/dL Calcium 9.1 (8.4-10.2) mg/dL Total Bilirubin 0.3 (0.2-1.3) mg/dL AST 31 (17-59) U/L ALT 39 (4-49) U/L Alkaline Phosphatase 104 (38-126) U/L Troponin I (0.000-0.034) ng/mL NT-Pro-B Natriuret Pep 39 pg/mL Total Protein 7.0 (6.3-8.2) g/dL Albumin 3.7 (3.5-5.0) g/dL Urine Color Light Yellow Urine Appearance Clear (Clear) Urine pH 5.5 (5.0-8.0) Ur Specific [place] 1.009 (1.001-1.035) Urine Protein Negative (Negative) Urine Glucose (UA) 4+ H (Negative) Urine Ketones Negative (Negative) Urine Blood Negative (Negative) Urine Nitrite Negative (Negative) Urine Bilirubin Negative (Negative) Urine Urobilinogen <2.0 (<2.0) mg/dL Ur Leukocyte Esterase Negative (Negative) 10/15/22 Range/Units 14:00 WBC (3.8-10.6) k/uL RBC (4.30-5.90) m/uL Hgb (13.0-17.5) gm/dL Hct (39.0-53.0) % MCV (80.0-100.0) fL MCH (25.0-35.0) pg MCHC (31.0-37.0) g/dL RDW (11.5-15.5) % Plt Count (150-450) k/uL MPV Neutrophils % % Lymphocytes % % Monocytes % % Eosinophils % % Basophils % % Neutrophils # (1.3-7.7) k/uL Lymphocytes # (1.0-4.8) k/uL Monocytes # (0-1.0) k/uL Eosinophils # (0-0.7) k/uL Basophils # (0-0.2) k/uL Hypochromasia Poikilocytosis Anisocytosis Microcytosis Sodium (137-145) mmol/L Potassium (3.5-5.1) mmol/L Chloride (98-107) mmol/L Carbon Dioxide (22-30) mmol/L Anion Gap mmol/L BUN (9-20) mg/dL Creatinine (0.66-1.25) mg/dL Est GFR (CKD-EPI)AfAm (>60 ml/min/1.73 sqM) Est GFR (CKD-EPI)NonAf (>60 ml/min/1.73 sqM) Glucose (74-99) mg/dL Calcium (8.4-10.2) mg/dL Total Bilirubin (0.2-1.3) mg/dL AST (17-59) U/L ALT (4-49) U/L Alkaline Phosphatase (38-126) U/L Troponin I <0.012 (0.000-0.034) ng/mL NT-Pro-B Natriuret Pep pg/mL Total Protein (6.3-8.2) g/dL Albumin (3.5-5.0) g/dL Urine Color Urine Appearance (Clear) Urine pH (5.0-8.0) Ur Specific [place] (1.001-1.035) Urine Protein (Negative) Urine Glucose (UA) (Negative) Urine Ketones (Negative) Urine Blood (Negative) Urine Nitrite (Negative) Urine Bilirubin (Negative) Urine Urobilinogen (<2.0) mg/dL Ur Leukocyte Esterase (Negative) - Radiology Data Radiology results: report reviewed, image reviewed Disposition Clinical Impression: Dizziness, Pre-syncope, Chest pain, Orthostatic dizziness Disposition: ADMITTED IP TO THIS [facility] Condition: Fair Is patient prescribed a controlled substance at d/c from ED?: No Referrals: None,Stated [REFERRING] - 1-2 days Time of Disposition: 15:28 (admit to Dr Latif) Decision Date: 10/15/22 Decision Time: 15:28
[2022-10-15 14:33] LABS: ALT 39 U/L (4-49); AST 31 U/L (17-59); African American GFR (CKD) 70 (>60 ml/min/1.73 sqM); Albumin 3.7 g/dL (3.5-5.0); Alkaline Phosphatase 104 U/L (38-126); Anion Gap 9 mmol/L; Blood Urea Nitrogen 20 mg/dL (9-20); Calcium 9.1 mg/dL (8.4-10.2); Carbon Dioxide 26 mmol/L (22-30); Chloride 102 mmol/L (98-107); Glucose 105 mg/dL (74-99); Non-African American GFR(CKD) 60 (>60 ml/min/1.73 sqM); Potassium 3.6 mmol/L (3.5-5.1); Sodium 137 mmol/L (137-145); Total Bilirubin 0.3 mg/dL (0.2-1.3)
[2022-10-15 14:35] LABS: Anisocytosis Slight; Basophils % (A) 0 %; Eosinophils # (A) 0.1 k/uL (0-0.7); Eosinophils % (A) 2 %; HCT 32.8 % (39.0-53.0); HGB 10.4 gm/dL (13.0-17.5); Hypochromasia Marked; Lymphocytes # (A) 1.9 k/uL (1.0-4.8); Lymphocytes % (A) 23 %; MCH 24.7 pg (25.0-35.0); MCHC 31.8 g/dL (31.0-37.0); MCV 77.6 fL (80.0-100.0); Mean Platelet Volume 7.7; Microcytosis Slight; Monocytes # (A) 0.6 k/uL (0-1.0); Monocytes % (A) 8 %; Neutrophils # (A) 5.2 k/uL (1.3-7.7); Neutrophils % (A) 65 %; Platelet Count 462 k/uL (150-450); Poikilocytosis Slight; RBC 4.23 m/uL (4.30-5.90); RDW 17.6 % (11.5-15.5); WBC 8.1 k/uL (3.8-10.6)
--- NOTE | 2022-10-15 14:40 | CT ---
EXAMINATION TYPE: CT brain wo con CT DLP: 1244.4 mGycm, Automated exposure control for dose reduction was used. DATE OF EXAM: 10/15/2022 2:33 PM COMPARISON: CT brain 06/20/2021 CLINICAL INDICATION:Male, 72 years old with history of dizziness, near syncope, Dizziness and near sy ncope. TECHNIQUE: Brain: Multiple axial CT images of the brain were obtained without IV contrast. Coronal and sagittal reformats reviewed. FINDINGS: Brain: Extra-axial spaces: No abnormal extra-axial fluid collections. Ventricular system: Within normal limits Cerebral parenchyma: Cerebral atrophy. No acute intraparenchymal hemorrhage or mass effect. The simpson -white junction is well differentiated. Cerebellum: Unremarkable. Mass effect: No evidence of midline shift. Intracranial vasculature: Atherosclerotic calcifications of the intracranial vessels. Soft tissues: Normal. Calvarium/osseous structures: No depressed skull fracture. Paranasal sinuses and mastoid air cells: Mild mucosal thickening of the left maxillary sinus. Mild mu cosal thickening of the right frontal sinus. Moderate mucosal thickening of the left sphenoid sinus. Similar opacification of the bilateral mastoid air cells with left greater than right. There is opaci fication of the left middle ear redemonstrated. Visualized orbits: Bilateral aphakia IMPRESSION: 1. No acute intracranial process. 2. Chronic bilateral mastoiditis with paranasal sinus disease.
[2022-10-15 14:42] LABS: NT-Pro-B-Type Natriuretic Pept 39 pg/mL
--- NOTE | 2022-10-15 14:42 | XR ---
EXAMINATION TYPE: XR ankle complete LT DATE OF EXAM: 10/15/2022 2:36 PM INDICATION: Patient age:Male; 72 years old; Reason for study: pain, fall; COMPARISON: None TECHNIQUE: The left ankle is imaged in frontal, lateral and oblique projections. FINDINGS: There is no evidence of acute osseous pathology. The joint spaces are well-preserved without evidenc e of subluxation or dislocation. Kager's fat pad is intact. Soft tissues are within normal limits. No radiopaque foreign bodies are identified. Calcaneal plantar spurring. IMPRESSION: No evidence of acute fracture.
--- NOTE | 2022-10-15 14:43 | XR ---
EXAMINATION TYPE: XR chest 1V DATE OF EXAM: 10/15/2022 2:36 PM COMPARISON: Chest radiographs from 09/03/2022 TECHNIQUE: XR chest 1V Frontal view of the chest. CLINICAL INDICATION:Male, 72 years old with history of chest pain, near syncope, dyspnea; FINDINGS: Lungs/Pleura: There is no evidence of pleural effusion, focal consolidation, or pneumothorax. Pulmonary vascularity: Unremarkable. Heart/mediastinum: Cardiomediastinal silhouette is enlarged and stable. Two lead cardiac conduction d evice overlying the left hemithorax with lead tips projecting over the right ventricle and right atri um. Musculoskeletal: No acute osseous pathology. IMPRESSION: Low lung volumes with a generalized hazy appearance which could represent atelectasis versus pulmonar y edema correlate with serum BNP.
[2022-10-15 14:52] LABS: Appearance,Urine Clear (Clear); Bilirubin,Urine Negative (Negative); Blood,Urine Negative (Negative); Color,Urine Light Yellow; Glucose,Urine (UA) 4+ (Negative); Ketones,Urine Negative (Negative); Leukocyte Esterase,Urine Negative (Negative); Nitrite,Urine Negative (Negative); PH, Urine 5.5 (5.0-8.0); Protein,Urine Negative (Negative); Specific Gravity,Urine 1.009 (1.001-1.035); Urobilinogen,Urine <2.0 mg/dL (<2.0)
[2022-10-15] MEDS ORDERED: NALOXONE 0.4 MG/ML 1 ML VIAL IV PRN (15:01)
[2022-10-15] MEDS ORDERED: ASPIRIN 325 MG TAB PO STA (15:13)
[2022-10-15] MEDS ORDERED: ALBUTEROL NEBULIZED 2.5 MG/3 ML INHALATION PRN (20:37)
[2022-10-15] MEDS ORDERED: NITROGLYCERIN SL TABS 0.4 MG TAB SUBLINGUAL PRN (20:37)
[2022-10-15] MEDS ORDERED: SPIRONOLACTONE 25 MG TAB PO SCH (20:45)
[2022-10-15] MEDS: APIXABAN 5 MG TAB PO SCH (21:59)
[2022-10-15] MEDS: MONTELUKAST 10 MG TAB PO SCH (21:59)
[2022-10-15] MEDS: TAMSULOSIN 0.4 MG CAP.ER.24H PO SCH (22:00)
[2022-10-15] MEDS: QUEtiapine 200 MG TAB PO SCH (22:00)
[2022-10-15] MEDS: AMIODARONE 200 MG TAB PO SCH (22:00)
[2022-10-15] MEDS: SACUBITRIL/VALSARTAN 24 MG-26 MG TABLET PO SCH (22:00)
[2022-10-15] MEDS: FLUTICASONE 50MCG/SPRAY NASAL 16GM EA NOSTRIL SCH (22:00)
[2022-10-15] MEDS: MIRTAZAPINE 45 MG TABLET PO SCH (22:00)
[2022-10-15] MEDS: ATORVASTATIN 20 MG TAB PO SCH (22:10)
[2022-10-16] MEDS: SYMBICORT 80-4.5 MCG INHALER INHALATION SCH ×2 (08:28→21:03)
[2022-10-16] MEDS: IPRATROPIUM-ALBUTEROL 3 ML NEB INHALATION SCH ×4 (08:28→21:03)
--- NOTE | 2022-10-16 09:56 | P.HPIM ---
History of Present Illness H&P Date: 10/16/22 Rayray Stewart is a 72-year-old male patient presented to [facility] emergency room with complaint of near-syncope dizziness and chest discomfort. Patient was apparently about STM for physical therapy when he became very lightheaded. Patient denies loss of consciousness or hitting his head. Patient has a past medical history of pacemaker/defibrillator placement, CHF, hyperlipidemia, COPD, diverticulitis, atrial fibrillation, CAD, deafness, sleep apnea and home oxygen dependent. Head CT completed showing no acute intracranial process. Chronic bilateral mastoiditis with paranasal sinus disease. Ankle x-ray completed showing no evidence for acute fracture.chest x- ray completed showing low lung volumes with a generalized hazy appearance which could represent atelectasis versus pulmonary edema correlate with serum BNP. BNP 39. Troponins negative 3. Patient denies the feeling of defibrillator firing. Patient recently had 2-D echo completed in August that showed EF of 35- 40%. At this time cardiology services will be consulted. Patient denies any chest pain or shortness of breath. Denies nausea vomiting or diarrhea. Patient denies any recent illness. Current vital signs temp 98.6, heart rate 88, respiratory rate 16 with blood pressure 101/56. 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 Stovall, gout bilateral feet, occasional numbness L leg/L great toe, diverticulitis/diverticulosis hx of PHIL with CPAP but no longer an issue since wt. 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 History of Any Multi-Drug Resistant Organisms: None Reported Past Surgical History: AICD, Cholecystectomy, Heart Catheterization, Heart Catheterization With Stent, Hernia Repair, Pacemaker, Tonsillectomy Additional Past Surgical History / Comment(s): 07/24/14 EGD/colonoscopy with polypectomy/bx, 2005 AICD/2014 AICD changed to medtronic, 2002 Cardiac stent in [place], 2007 cardiac cath [facility], upper teeth extracted for denture, L ear has tube, R ear plugged, cyst removed L eyelid, bilateral cataract removal, L ganglion cyst removal, L/R inguinal hernia repairs with mesh, penile implant. Past Anesthesia/Blood Transfusion Reactions: No Reported Reaction Date of Last Stent Placement:: 2002 Type of Cardiac Device: AICD Device Placement Date:: 2014 Past Psychological History: Anxiety, Depression Additional Psychological History / Comment(s): Pt lives alone in an apartment. pt has a cane but doesnt use it. He does not own a vehicle so he uses [facility] [facility] to get to appointments. He has a medication dispenser thru [facility]. Smoking Status: Former smoker Past Alcohol Use History: None Reported Additional Past Alcohol Use History / Comment(s): Pt started smoking an occasional cigar a few years ago. Past Drug Use History: None Reported - Past Family History Father Family Medical History: Coronary Artery Disease (CAD), Pneumonia Additional Family Medical History / Comment(s): Father of pneumonia at the age of 82 yrs. Mother Family Medical History: Liver Disease, Renal Disease Additional Family Medical History / Comment(s): father passed after a bout with pneumonia Medications and Allergies Home Medications Medication Instructions Recorded Confirmed Type Mirtazapine 45 mg PO HS 04/01/14 10/15/22 History QUEtiapine [SEROquel] 200 mg PO BID 04/01/14 10/15/22 History Spironolactone [Aldactone] 25 mg PO DAILY 04/01/14 10/15/22 History Montelukast [Singulair] 10 mg PO HS 07/20/14 10/15/22 History Apixaban [Eliquis] 5 mg PO BID 06/02/20 10/15/22 History Atorvastatin [Lipitor] 20 mg PO DAILY 06/02/20 10/15/22 History Nitroglycerin Sl Tabs [Nitrostat] 0.4 mg SL Q5M PRN 06/06/20 10/15/22 History Albuterol Inhaler [Ventolin Hfa 2 puff INHALATION RT-QID PRN 05/29/21 10/15/22 History Inhaler] Fluticasone Nasal [place] [Flonase 1 spr EA NOSTRIL DAILY 06/16/21 10/15/22 History Nasal [place]] Amiodarone [Cordarone] 200 mg PO BID tab 10/27/21 10/15/22 Rx Aspirin 81 mg PO DAILY tab 10/27/21 10/15/22 Rx Furosemide [Lasix] 20 mg PO DAILY tab 10/27/21 10/15/22 Rx Tamsulosin [Flomax] 0.4 mg PO BID cap 10/27/21 10/15/22 Rx Multivitamins, Thera [Multivitamin 1 tab PO DAILY 05/31/22 10/15/22 History (formulary)] Pantoprazole [Protonix] 40 mg PO DAILY 05/31/22 10/15/22 History Ergocalciferol (Vitamin D2) 1,250 mcg PO TH 09/03/22 10/15/22 History [Drisdol (50,000 Iu)] Fluticasone/Umeclidin/Vilanter 1 puff INHALATION RT-DAILY 09/03/22 10/15/22 History [Trelegy Ellipta 100-62.5-25] Dapagliflozin Propanediol [Farxiga] 10 mg PO DAILY tab 09/11/22 10/15/22 Rx Ipratropium-Albuterol Nebulize 3 ml INHALATION RT-QID each 09/11/22 10/15/22 Rx [Duoneb 0.5 mg-3 mg/3 ml Soln] Metoprolol Succinate (ER) [Toprol 25 mg PO DAILY tab 09/11/22 10/15/22 Rx XL] Sacubitril/Valsartan [Entresto 24 1 tab PO BID 10/15/22 10/15/22 History mg-26 mg Tablet] Allergies Allergy/AdvReac Type Severity Reaction Status Date / Time Barbiturates Allergy Anaphylaxis Verified 10/15/22 15:12 doxepin Allergy Anaphylaxis Verified 10/15/22 15:12 levofloxacin [From Levaquin] Allergy Dyspnea & Verified 10/15/22 15:12 Leg Swelling and Pain & Headache Physical Exam Vitals: Vital Signs Temp Pulse Pulse Resp BP BP Pulse Ox 10/16/22 08:53 64 10/16/22 08:31 68 10/16/22 02:00 98.6 F 65 16 101/56 98 10/15/22 20:00 97.6 F 76 16 122/61 98 10/15/22 19:53 71 18 118/67 97 10/15/22 15:49 80 18 107/70 10/15/22 15:48 78 18 117/76 10/15/22 15:47 74 18 131/85 10/15/22 13:15 97.4 F L 73 18 116/86 99 Intake and Output 10/15/22 10/16/22 10/16/22 22:59 06:59 14:59 Output Total 425 Balance -425 Output: Urine 425 Other: # Voids 0 # Bowel Movements 0 Weight 99.79 kg Head normocephalic Neck supple Lungs clear to auscultation bilaterally no wheezing or crackles Heart regular rate and rhythm S1-S2, no rub or gallop Abdomen is soft nontender nondistended positive bowel sounds no hepatosplenomegaly Extremities no edema Neuro alert and orientated to 3 Results CBC & Chem 7: 10/15/22 14:00 10/15/22 14:00 Labs: Abnormal Lab Results - Last 24 Hours (Table) 10/15/22 10/15/22 10/15/22 Range/Units 14:00 14:00 14:00 RBC 4.23 L (4.30-5.90) m/uL Hgb 10.4 L (13.0-17.5) gm/dL Hct 32.8 L (39.0-53.0) % MCV 77.6 L (80.0-100.0) fL MCH 24.7 L (25.0-35.0) pg RDW 17.6 H (11.5-15.5) % Plt Count 462 H (150-450) k/uL Glucose 105 H (74-99) mg/dL Urine Glucose (UA) 4+ H (Negative) Thrombosis Risk Factor Assmnt - Choose All That Apply Each Factor Represents 1 point: Abnormal pulmonary function (COPD), Obesity (BMI >25), Swollen legs (current) Other Risk Factors: Yes Each Risk Factor Represents 2 Points: Age 61-74 years Other congenital or acquired thrombophilia - If yes, enter type in comment: No Thrombosis Risk Factor Assessment Total Risk Factor Score: 5 Thrombosis Risk Factor Assessment Level: High Risk Assessment and Plan Assessment: 1. Near-syncopal episode 2. Episode chest pain 3. History of CAD with history of angioplasty and stent placement to the RCA an d 2021 4. History of ischemic cardiomyopathy with AICD placement 2012 5. History of essential hypertension 6. History of COPD maintained on home 2 L 7. History of essential hypertension 8. History of paroxysmal atrial fibrillation maintained on eliquis 9. History of chronic kidney disease stage III 10. History of hyperlipidemia DVT prophylaxis eliquis. GI prophylaxis Protonix At this time cardiology services will be consulted Carotid Doppler ordered 2-D echo recent completed in August 2022 Cardiology service is consulted Repeat labs ordered Time with Patient: Greater than 30 (Greater than 60% of the total time spent in counseling and coordination of care)
[2022-10-16] MEDS: QUEtiapine 200 MG TAB PO SCH ×2 (10:06→21:28)
[2022-10-16] MEDS: ASPIRIN 81 MG PO SCH (10:06)
[2022-10-16] MEDS: SACUBITRIL/VALSARTAN 24 MG-26 MG TABLET PO SCH ×2 (10:06→21:28)
[2022-10-16] MEDS: MULTIVITAMINS, THERA 1 EACH TAB PO SCH (10:06)
[2022-10-16] MEDS: DAPAGLIFLOZIN PROPANEDIOL 10 MG TABLET PO SCH (10:06)
[2022-10-16] MEDS: ATORVASTATIN 20 MG TAB PO SCH (10:06)
[2022-10-16] MEDS: FUROSEMIDE 20 MG TAB PO SCH (10:06)
[2022-10-16] MEDS: TAMSULOSIN 0.4 MG CAP.ER.24H PO SCH ×2 (10:07→21:28)
[2022-10-16] MEDS: METOPROLOL SUCCINATE (ER) 25 MG TAB.ER.24H PO SCH (10:07)
[2022-10-16] MEDS: APIXABAN 5 MG TAB PO SCH ×2 (10:07→21:28)
[2022-10-16] MEDS: AMIODARONE 200 MG TAB PO SCH ×2 (10:07→21:28)
[2022-10-16] MEDS: PANTOPRAZOLE 40 MG TABLET PO SCH (10:07)
[2022-10-16] MEDS: SPIRONOLACTONE 25 MG TAB PO SCH (10:07)
[2022-10-16] MEDS: FLUTICASONE 50MCG/SPRAY NASAL 16GM EA NOSTRIL SCH (10:11)
--- NOTE | 2022-10-16 11:02 | P.CRDCN ---
History of Present Illness Consult date: 10/16/22 Consult reason: chest pain (And near syncope) History of present illness: This is a 72-year-old male patient of Dr. Monsalve with history of CAD with previous PCI, ischemic cardiomyopathy with AICD in 2012, hypertension, hyperlipidemia, paroxysmal atrial fibrillation on anticoagulation, and GI bleed with colonoscopy showing likely diverticulitis and external hemorrhoids and anticoagulation has been resumed with no recurrence. We have been asked to evaluate the patient for near syncope and chest pain. Patient states that he had a fall yesterday in his home and physical therapy came into the home at the time and helped him get up and ended up falling with him again. He states he has no energy and very weak. He feels lightheadedness when he goes to a standing position but none with sitting or laying. He denies any chest pain at this time. No cough, no fever, no lower extremity edema. No PND. He states he has occasional palpitations. He has had no discharges from his AICD, no nausea or vomiting. He has had an upset stomach. No blood in his stool and no blood in his urine. No CVA symptoms and no seizure. EKG reveals sinus rhythm, heart rate 76 Chest x-ray: Low lung volumes, possible atelectasis versus pulmonary edema Ankle x-ray no fracture CAT scan of the brain no acute process. Chronic bilateral mastoiditis WBC 8.1, hemoglobin 10.4, platelet count 462. Electrolytes and renal function normal. Blood sugar 105. Troponin negative 3 draws. ProBNP 39. Urinalysis glucose 4+ Echocardiogram 09/05/2022 revealed moderate to severe global hypokinesia of the left ventricle. Mild mitral and tricuspid regurg. Mild to moderate aortic regurgitation Cardiac catheterization 09/2021 by FR measurement of moderate proximal RCA lesion and PTCA and stenting of the proximal RCA and PTCA of the mid stent restenosis lesion with a high pressure noncompliant balloon. Home cardiac medications: Amiodarone 200 mg twice daily, eliquis 5 mg twice daily, aspirin 81 mg daily, Lipitor 20 mg daily, Lasix 20 mg daily, metoprolol succinate 25 mg daily, Entresto 2426 milligrams twice daily, Aldactone 25 mg daily. REVIEW OF SYSTEMS At the time of my exam: CONSTITUTIONAL: Denies fever or chills. Reports dizziness CARDIOVASCULAR: Reports chest pain, shortness of breath, orthopnea, PND or palpitations. RESPIRATORY: Reports cough. Reports cough with sputum production GASTROINTESTINAL: Denies abdominal pain, diarrhea, constipation, nausea or vomiting. MUSCULOSKELETAL: Denies myalgias. NEUROLOGIC: Denies numbness, tingling, headacbe or weakness. ENDOCRINE: Denies fatigue, weight change, polydipsia or polyurina. HEMATOLOGIC: Denies history of anemia or bleeding. PHYSICAL EXAMINATION CONSTITUTIONAL: No apparent distress. HEENT: Head is normocephalic. Pupils are equal, round. Sclerae anicteric. Mucous membranes of the mouth are moist. No JVD. CHEST EXAMINATION: Lungs are diminished with scattered rhonchi. HEART EXAMINATION: Regular rate and rhythm. S1, S2 heard. Systolic murmur at left sternal border. ABDOMEN: Soft, nontender. Positive bowel sounds. EXTREMITIES: 2+ peripheral pulses, no lower extremity edema and no calf tenderness. NEUROLOGIC EXAMINATION: Patient is awake, alert and oriented x3. ASSESSMENT Near syncopal episode Chest pain, acute coronary syndrome ruled out History of Ventricular tachycardia with AICD CAD with previous PCI to the RCA in 2002, PTCA and stenting of the RCA in 2021 and PTCA of the mid stent restenosis lesion 2021 Ischemic cardiomyopathy with AICD in 2012 Hypertension Hyperlipidemia Paroxysmal atrial fibrillation on Eliquis History of diverticulitis Anemia Chronic kidney disease stage III PLAN Resume patient's home cardiac medications with the exception to decrease a ldactone to 12.5 mg daily Obtain orthostatic vital signs If orthostatic vital signs are stable, patient is cleared from cardiology for discharge home with plan to decrease Aldactone at home. Patient may follow-up in the office with Dr. Monsalve in 1-2 weeks Thank you kindly for this consultation. Nurse practitioner note has been reviewed by physician. Signing provider agrees with the documented findings, assessment, and plan of care. 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 Stovall, gout bilateral feet, occasional numbness L leg/L great toe, diverticulitis/diverticulosis hx of PHIL with CPAP but no longer an issue since wt. 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 History of Any Multi-Drug Resistant Organisms: None Reported Past Surgical History: AICD, Cholecystectomy, Heart Catheterization, Heart Catheterization With Stent, Hernia Repair, Pacemaker, Tonsillectomy Additional Past Surgical History / Comment(s): 07/24/14 EGD/colonoscopy with polypectomy/bx, 2005 AICD/2014 AICD changed to medtronic, 2002 Cardiac stent in [place], 2007 cardiac cath [facility], upper teeth extracted for denture, L ear has tube, R ear plugged, cyst removed L eyelid, bilateral cataract removal, L ganglion cyst removal, L/R inguinal hernia repairs with mesh, penile implant. Past Anesthesia/Blood Transfusion Reactions: No Reported Reaction Date of Last Stent Placement:: 2002 Type of Cardiac Device: AICD Device Placement Date:: 2014 Past Psychological History: Anxiety, Depression Additional Psychological History / Comment(s): Pt lives alone in an apartment. pt has a cane but doesnt use it. He does not own a vehicle so he uses [employer] [facility] to get to appointments. He has a medication dispenser thru [facility]. Smoking Status: Former smoker Past Alcohol Use History: None Reported Additional Past Alcohol Use History / Comment(s): Pt started smoking an occasional cigar a few years ago. Past Drug Use History: None Reported - Past Family History Father Family Medical History: Coronary Artery Disease (CAD), Pneumonia Additional Family Medical History / Comment(s): Father of pneumonia at the age of 82 yrs. Mother Family Medical History: Liver Disease, Renal Disease Additional Family Medical History / Comment(s): father passed after a bout with pneumonia Medications and Allergies Home Medications Medication Instructions Recorded Confirmed Type Mirtazapine 45 mg PO HS 04/01/14 10/15/22 History QUEtiapine [SEROquel] 200 mg PO BID 04/01/14 10/15/22 History Spironolactone [Aldactone] 25 mg PO DAILY 04/01/14 10/15/22 History Montelukast [Singulair] 10 mg PO HS 07/20/14 10/15/22 History Apixaban [Eliquis] 5 mg PO BID 06/02/20 10/15/22 History Atorvastatin [Lipitor] 20 mg PO DAILY 06/02/20 10/15/22 History Nitroglycerin Sl Tabs [Nitrostat] 0.4 mg SL Q5M PRN 06/06/20 10/15/22 History Albuterol Inhaler [Ventolin Hfa 2 puff INHALATION RT-QID PRN 05/29/21 10/15/22 History Inhaler] Fluticasone Nasal [place] [Flonase 1 spr EA NOSTRIL DAILY 06/16/21 10/15/22 History Nasal [place]] Amiodarone [Cordarone] 200 mg PO BID tab 10/27/21 10/15/22 Rx Aspirin 81 mg PO DAILY tab 10/27/21 10/15/22 Rx Furosemide [Lasix] 20 mg PO DAILY tab 10/27/21 10/15/22 Rx Tamsulosin [Flomax] 0.4 mg PO BID cap 10/27/21 10/15/22 Rx Multivitamins, Thera [Multivitamin 1 tab PO DAILY 05/31/22 10/15/22 History (formulary)] Pantoprazole [Protonix] 40 mg PO DAILY 05/31/22 10/15/22 History Ergocalciferol (Vitamin D2) 1,250 mcg PO TH 09/03/22 10/15/22 History [Drisdol (50,000 Iu)] Fluticasone/Umeclidin/Vilanter 1 puff INHALATION RT-DAILY 09/03/22 10/15/22 History [Trelegy Ellipta 100-62.5-25] Dapagliflozin Propanediol [Farxiga] 10 mg PO DAILY tab 09/11/22 10/15/22 Rx Ipratropium-Albuterol Nebulize 3 ml INHALATION RT-QID each 09/11/22 10/15/22 Rx [Duoneb 0.5 mg-3 mg/3 ml Soln] Metoprolol Succinate (ER) [Toprol 25 mg PO DAILY tab 09/11/22 10/15/22 Rx XL] Sacubitril/Valsartan [Entresto 24 1 tab PO BID 10/15/22 10/15/22 History mg-26 mg Tablet] Allergies Allergy/AdvReac Type Severity Reaction Status Date / Time Barbiturates Allergy Anaphylaxis Verified 10/15/22 15:12 doxepin Allergy Anaphylaxis Verified 10/15/22 15:12 levofloxacin [From Levaquin] Allergy Dyspnea & Verified 10/15/22 15:12 Leg Swelling and Pain & Headache Physical Exam Vitals: Vital Signs Temp Pulse Pulse Resp BP BP Pulse Ox 10/16/22 02:00 98.6 F 65 16 101/56 98 10/15/22 20:00 97.6 F 76 16 122/61 98 10/15/22 19:53 71 18 118/67 97 10/15/22 15:49 80 18 107/70 10/15/22 15:48 78 18 117/76 10/15/22 15:47 74 18 131/85 10/15/22 13:15 97.4 F L 73 18 116/86 99 Intake and Output 10/15/22 10/16/22 10/16/22 22:59 06:59 14:59 Output Total 425 Balance -425 Output: Urine 425 Other: # Voids 0 # Bowel Movements 0 Weight 99.79 kg Results 10/15/22 14:00 10/15/22 14:00 Cardiac Enzymes 10/15/22 10/15/22 10/15/22 Range/Units 14:00 14:00 18:24 AST 31 (17-59) U/L Troponin I <0.012 <0.012 (0.000-0.034) ng/mL 10/15/22 Range/Units 21:21 AST (17-59) U/L Troponin I <0.012 (0.000-0.034) ng/mL CBC 10/15/22 Range/Units 14:00 WBC 8.1 (3.8-10.6) k/uL RBC 4.23 L (4.30-5.90) m/uL Hgb 10.4 L (13.0-17.5) gm/dL Hct 32.8 L (39.0-53.0) % Plt Count 462 H (150-450) k/uL Comprehensive Metabolic Panel 10/15/22 Range/Units 14:00 Sodium 137 (137-145) mmol/L Potassium 3.6 (3.5-5.1) mmol/L Chloride 102 (98-107) mmol/L Carbon Dioxide 26 (22-30) mmol/L BUN 20 (9-20) mg/dL Creatinine 1.20 (0.66-1.25) mg/dL Glucose 105 H (74-99) mg/dL Calcium 9.1 (8.4-10.2) mg/dL AST 31 (17-59) U/L ALT 39 (4-49) U/L Alkaline Phosphatase 104 (38-126) U/L Total Protein 7.0 (6.3-8.2) g/dL Albumin 3.7 (3.5-5.0) g/dL Current Medications Generic Name Dose Route Start Last Admin Trade Name Freq PRN Reason Stop Dose Admin Albuterol Sulfate 2.5 mg 10/15/22 20:37 Albuterol Nebulized 2.5 Mg/3 Ml INHALATION RT-QID PRN Shortness Of Breath Albuterol/Ipratropium 3 ml 10/16/22 08:00 10/16/22 08:28 Ipratropium-Albuterol 3 Ml Neb INHALATION 3 ml RT-QID NOREEN Administration Amiodarone HCl 200 mg 10/15/22 21:00 10/15/22 22:00 Amiodarone 200 Mg Tab PO 200 mg BID NOREEN Administration Apixaban 5 mg 10/15/22 21:00 10/15/22 21:59 Apixaban 5 Mg Tab PO 5 mg BID NOREEN Administration Protocol Aspirin 81 mg 10/16/22 09:00 Aspirin 81 Mg PO DAILY [facility] Atorvastatin Calcium 20 mg 10/15/22 20:45 10/15/22 22:10 Atorvastatin 20 Mg Tab PO 20 mg DAILY NOREEN Administration Budesonide/Formoterol Fumarate 2 puff 10/16/22 08:00 10/16/22 08:28 Symbicort 80-4.5 Mcg Inhaler INHALATION 2 puff RT-BID NOREEN Administration Dapagliflozin 10 mg 10/16/22 09:00 Dapagliflozin Propanediol 10 Mg Tablet PO DAILY [facility] Ergocalciferol 1,250 mcg 10/18/22 09:00 Ergocalciferol 1,250 Mcg (50,000 Iu) Capsule PO TH [facility] Fluticasone Propionate 1 spray 10/15/22 20:45 10/15/22 22:00 Fluticasone 50mcg/[place] Nasal 16gm EA NOSTRIL 1 spray DAILY NOREEN Administration Furosemide 20 mg 10/16/22 09:00 Furosemide 20 Mg Tab PO DAILY NOREEN Metoprolol Succinate 25 mg 10/16/22 09:00 Metoprolol Succinate (Er) 25 Mg Tab.Er.24h PO DAILY NOREEN Mirtazapine 45 mg 10/15/22 21:00 10/15/22 22:00 Mirtazapine 45 Mg Tablet PO 45 mg HS NOREEN Administration Montelukast Sodium 10 mg 10/15/22 21:00 10/15/22 21:59 Montelukast 10 Mg Tab PO 10 mg HS NOREEN Administration Multivitamins 1 each 10/16/22 09:00 Multivitamins, Thera 1 Each Tab PO DAILY NOREEN Naloxone HCl 0.2 mg 10/15/22 15:01 Naloxone 0.4 Mg/Ml 1 Ml Vial IV Q2M PRN Opioid Reversal Nitroglycerin 0.4 mg 10/15/22 20:37 Nitroglycerin Sl Tabs 0.4 Mg Tab SUBLINGUAL Q5M PRN Chest Pain Pantoprazole Sodium 40 mg 10/16/22 09:00 Pantoprazole 40 Mg Tablet PO DAILY NOREEN Quetiapine Fumarate 200 mg 10/15/22 21:00 10/15/22 22:00 Quetiapine 200 Mg Tab PO 200 mg BID NOREEN Administration Sacubitril/Valsartan 1 each 10/15/22 21:00 10/15/22 22:00 Sacubitril/Valsartan 24 Mg-26 Mg Tablet PO 1 each BID NOREEN Administration Spironolactone 25 mg 10/15/22 20:45 10/15/22 22:09 Spironolactone 25 Mg Tab PO 25 mg DAILY NOREEN Administration Tamsulosin HCl 0.4 mg 10/15/22 21:00 10/15/22 22:00 Tamsulosin 0.4 Mg Cap.Er.24h PO 0.4 mg BID NOREEN Administration Intake and Output 10/15/22 10/16/22 10/16/22 22:59 06:59 14:59 Output Total 425 Balance -425 Output: Urine 425 Other: # Voids 0 # Bowel Movements 0 Weight 99.79 kg 10/15/22 14:00 10/15/22 14:00
--- NOTE | 2022-10-16 11:57 | US ---
EXAMINATION TYPE: US carotid duplex BILAT DATE OF EXAM: 10/16/2022 COMPARISON: CLINICAL INDICATION: Male, 72 years old with history of near syncope dizziness; HTN controlled with m eds. High cholesterol. Dizziness. TECHNIQUE: Carotid duplex ultrasound examination. Indirect Doppler criteria was utilized. FINDINGS: EXAM MEASUREMENTS: RIGHT: Peak Systolic Velocity (PSV) cm/sec ----- Right CCA: 91.8 ----- Right ICA: 89.9 ----- Right ECA: Unable to visualize ICA/CCA ratio: 1.0 RIGHT: End Diastole cm/sec ----- Right CCA: 5.7 ----- Right ICA: 28.3 ----- Right ECA: Unable to visualize LEFT: Peak Systolic Velocity (PSV) cm/sec ----- Left CCA: 130.0 ----- Left ICA: 104.0 ----- Left ECA: 111.0 ICA/CCA ratio: 0.8 LEFT: End Diastole cm/sec ----- Left CCA: 27.1 ----- Left ICA: 38.1 ----- Left ECA: 11.7 VERTEBRALS (direction of flow): Right Vertebral: Antegrade Left Vertebral: Antegrade Rhythm: Normal [employer] NOTES: Unable to visualize right ECA, could be due to deep location. No stenosis visuali zed at time of scan. Wall thickening seen. IMPRESSION: Less than 50% stenosis of bilateral carotid bifurcations. Criteria for Assigning % of Stenosis / Diameter reduction (Estimation based on the indirect measurements of the internal carotid artery velocities (ICA PSV). 1. Normal (no stenosis)=ICA PSV < 125 cm/s: ratio < 2.0: ICA EDV<40 cm/s. 2. Less than 50% stenosis=ICA PSV < 125 cm/s: ratio < 2.0: ICA EDV<40 cm/s. 3. 50 to 69% stenosis=ICA PSV of 125 to 230 cm/s: ration 2.0 ? 4.0: ICA EDV 40-100 cm/s. 4. Greater than 70% stenosis to near occlusion= ICA PSV > 230 cm/s: ratio > 4.0: ICA EDV > 100 cm/s. 5. Near occlusion= ICA PSV velocities may be low or undetectable: variable ratio and ICA EDV. 6. Total occlusion=unable to detect flow.
[2022-10-16] MEDS: MONTELUKAST 10 MG TAB PO SCH (21:28)
[2022-10-16] MEDS: MIRTAZAPINE 45 MG TABLET PO SCH (21:28)
[2022-10-17] MEDS: SYMBICORT 80-4.5 MCG INHALER INHALATION SCH (08:00)
[2022-10-17] MEDS: IPRATROPIUM-ALBUTEROL 3 ML NEB INHALATION SCH ×2 (08:00→11:51)
[2022-10-17 08:03] VITALS: BP 116/68; RESP 16; TEMP 98.3
[2022-10-17] MEDS: MULTIVITAMINS, THERA 1 EACH TAB PO SCH (09:35)
[2022-10-17] MEDS: TAMSULOSIN 0.4 MG CAP.ER.24H PO SCH (09:35)
[2022-10-17] MEDS: AMIODARONE 200 MG TAB PO SCH (09:35)
[2022-10-17] MEDS: PANTOPRAZOLE 40 MG TABLET PO SCH (09:35)
[2022-10-17] MEDS: FUROSEMIDE 20 MG TAB PO SCH (09:35)
[2022-10-17] MEDS: DAPAGLIFLOZIN PROPANEDIOL 10 MG TABLET PO SCH (09:36)
[2022-10-17] MEDS: QUEtiapine 200 MG TAB PO SCH (09:36)
[2022-10-17] MEDS: APIXABAN 5 MG TAB PO SCH (09:36)
[2022-10-17] MEDS: ASPIRIN 81 MG PO SCH (09:36)
[2022-10-17] MEDS: ATORVASTATIN 20 MG TAB PO SCH (09:36)
[2022-10-17] MEDS: SPIRONOLACTONE 25 MG TAB PO SCH (09:36)
[2022-10-17] MEDS: SACUBITRIL/VALSARTAN 24 MG-26 MG TABLET PO SCH (09:36)
[2022-10-17] MEDS: METOPROLOL SUCCINATE (ER) 25 MG TAB.ER.24H PO SCH (09:36)
[2022-10-17] MEDS: FLUTICASONE 50MCG/SPRAY NASAL 16GM EA NOSTRIL SCH (09:42)
--- NOTE | 2022-10-17 10:39 | P.PN ---
Subjective Progress Note Date: 10/17/22 This is a 72-year-old male patient of Dr. Monsalve with history of CAD with previous PCI, ischemic cardiomyopathy with AICD in 2012, hypertension, hyperlipidemia, paroxysmal atrial fibrillation on anticoagulation, and GI bleed with colonoscopy showing likely diverticulitis and external hemorrhoids and anticoagulation has been resumed with no recurrence. We have been asked to evaluate the patient for near syncope and chest pain. Patient states that he had a fall yesterday in his home and physical therapy came into the home at the time and helped him get up and ended up falling with him again. He states he has no energy and very weak. He feels lightheadedness when he goes to a standing position but none with sitting or laying. He denies any chest pain at this time. No cough, no fever, no lower extremity edema. No PND. He states he has occasional palpitations. He has had no discharges from his AICD, no nausea or vomiting. He has had an upset stomach. No blood in his stool and no blood i n his urine. No CVA symptoms and no seizure. EKG reveals sinus rhythm, heart rate 76 Chest x-ray: Low lung volumes, possible atelectasis versus pulmonary edema Ankle x-ray no fracture CAT scan of the brain no acute process. Chronic bilateral mastoiditis WBC 8.1, hemoglobin 10.4, platelet count 462. Electrolytes and renal function normal. Blood sugar 105. Troponin negative 3 draws. ProBNP 39. Urinalysis glucose 4+ Echocardiogram 09/05/2022 revealed moderate to severe global hypokinesia of the left ventricle. Mild mitral and tricuspid regurg. Mild to moderate aortic regurgitation Cardiac catheterization 09/2021 by FR measurement of moderate proximal RCA lesion and PTCA and stenting of the proximal RCA and PTCA of the mid stent restenosis lesion with a high pressure noncompliant balloon. Home cardiac medications: Amiodarone 200 mg twice daily, eliquis 5 mg twice daily, aspirin 81 mg daily, Lipitor 20 mg daily, Lasix 20 mg daily, metoprolol succinate 25 mg daily, Entresto 2426 milligrams twice daily, Aldactone 25 mg daily. 10/17 Patient is seen today in follow-up. He states he is feeling much better and he thinks that he has RSV as he saw this in a commercial on TV. Patient states he is less dizzy and less weak. Orthostatic vital signs performed yesterday were negative. Adjustment was made on his Aldactone. Blood pressure 116/68, heart rate in the 60s. PHYSICAL EXAMINATION CONSTITUTIONAL: No apparent distress. HEENT: Head is normocephalic. Pupils are equal, round. Sclerae anicteric. Mucous membranes of the mouth are moist. No JVD. CHEST EXAMINATION: Lungs are diminished with scattered rhonchi. HEART EXAMINATION: Regular rate and rhythm. S1, S2 heard. Systolic murmur at left sternal border. ABDOMEN: Soft, nontender. Positive bowel sounds. EXTREMITIES: 2+ peripheral pulses, no lower extremity edema and no calf tenderness. NEUROLOGIC EXAMINATION: Patient is awake, alert and oriented x3. ASSESSMENT Near syncopal episode Chest pain, acute coronary syndrome ruled out History of Ventricular tachycardia with AICD CAD with previous PCI to the RCA in 2002, PTCA and stenting of the RCA in 2021 and PTCA of the mid stent restenosis lesion 2021 Ischemic cardiomyopathy with AICD in 2012 Hypertension Hyperlipidemia Paroxysmal atrial fibrillation on Eliquis History of diverticulitis Anemia Chronic kidney disease stage III PLAN Continue patient's home cardiac medications with the exception to decrease aldactone to 12.5 mg daily Patient is cleared from cardiology for discharge home. Patient may follow-up in the office with Dr. Monsalve in 1-2 weeks Nurse practitioner note has been reviewed by physician. Signing provider agrees with the documented findings, assessment, and plan of care. Objective - Vital Signs Vital signs: Vital Signs Temp 98.3 F 10/17/22 07:00 Pulse 64 10/17/22 08:14 Resp 16 10/17/22 07:00 BP 116/68 10/17/22 07:00 Pulse Ox 100 10/17/22 08:00 FiO2 Intake & Output 10/16/22 10/17/22 10/17/22 18:59 06:59 18:59 Intake Total 561 Output Total 450 500 Balance 111 -500 Intake: Oral 561 Output: Urine 450 500 Other: # Voids 0 - Labs CBC & Chem 7: 10/15/22 14:00 10/15/22 14:00
[2022-10-17 11:00] LABS: Basophils # (A) 0.05 X 10*3/uL (0.00-0.10); Basophils % (A) 0.6 %; Eosinophils % (A) 2.3 %; HCT 28.5 % (39.6-50.0); HGB 8.5 d/dL (13.0-17.0); Lymphocytes # (A) 2.59 X 10*3/uL (0.90-5.00); Lymphocytes % (A) 29.8 %; MCH 23.4 pg (27.0-32.0); MCHC 29.8 d/dL (32.0-37.0); MCV 78.5 FL (80.0-97.0); Mean Platelet Volume 9.5 FL (9.5-12.2); Monocytes # (A) 1.11 X 10*3/uL (0.20-1.00); Monocytes % (A) 12.8 %; NRBC Per 100 WBC 0 X 10*3/uL (0.00-0.01); Neutrophils # (A) 4.68 X 10*3/uL (1.80-7.70); Neutrophils % (A) 53.8 %; Platelet Count 474 X 10*3/uL (140-440); RBC 3.63 X 10*6/uL (4.40-5.60); WBC 8.69 X 10*3/uL (4.50-10.00)
[2022-10-17 11:15] LABS: BUN/Creat Ratio 9.46 Ratio (12.00-20.00); Blood Urea Nitrogen 12.3 mg/dL (9.0-27.0); Calcium 9.3 mg/dL (8.7-10.3); Carbon Dioxide 25.7 mmol/L (21.6-31.8); Chloride 103 mmol/L (96-109); Glucose 96 mg/dL (70-110); Potassium 3.7 mmol/L (3.5-5.5); Sodium 139 mmol/L (135-145)
[2022-10-17 11:16] LABS: ALT 34 U/L (10-49); AST 25 U/L (14-35); Albumin 3.4 d/dL (3.8-4.9); Albumin/Globulin Ratio 1.31 Ratio (1.60-3.17); Alkaline Phosphatase 80 U/L (41-126); Globulin 2.6 d/dL (1.6-3.3); Total Bilirubin <0.2 mg/dL (0.3-1.2)
--- NOTE | 2022-10-17 11:55 | P.DS ---
Providers Date of admission: 10/15/22 15:50 Expected date of discharge: 10/17/22 Attending physician: Roxanna Patel Consults: 10/15/22 15:01 Consult Physician Routine Consulting Provider: Kaden Monsalve Consult Reason/Comments: near syncope, chest pain Do you want consulting provider notified?: Yes Primary care physician: Roxanna Patel [facility] Course: discharge diagnosis 1. Near-syncopal episode 2. Episode chest pain 3. History of CAD with history of angioplasty and stent placement to the and 2021 4. History of ischemic cardiomyopathy with AICD placement 2012 5. History of essential hypertension 6. History of COPD maintained on home 2 L 7. History of essential hypertension 8. History of paroxysmal atrial fibrillation maintained on eliquis 9. History of chronic kidney disease stage III 10. History of hyperlipidemia 11. Head CT showing chronic bilateral mastoiditis. Nasal sinus disease Hospital course Rayray Stewart is a 72-year-old male patient presented to [facility] emergency room with complaint of near-syncope dizziness and chest discomfort. Patient was apparently about [facility] for physical therapy when he became very lightheaded. Patient denies loss of consciousness or hitting his head. Patient has a past medical history of pacemaker/defibrillator placement, CHF, hyperlipidemia, COPD, diverticulitis, atrial fibrillation, CAD, deafness, sleep apnea and home oxygen dependent. Head CT completed showing no acute intracranial process. Chronic bilateral mastoiditis with paranasal sinus disease. Ankle x-ray completed showing no evidence for acute fracture.chest x- ray completed showing low lung volumes with a generalized hazy appearance which could represent atelectasis versus pulmonary edema correlate with serum BNP. BNP 39. Troponins negative 3. Patient denies the feeling of defibrillator firing. Patient recently had 2-D echo completed in August that showed EF of 35- 40%. At this time cardiology services will be consulted. Patient denies any chest pain or shortness of breath. Denies nausea vomiting or diarrhea. Patient denies any recent illness. Current vital signs temp 98.6, heart rate 88, respiratory rate 16 with blood pressure 101/56. Pulse ox 98% on 2 L on 10/17/2022 patient is alert and oriented 3. Patient for discharge from card iology standpoint. Per cardiology patient's Aldactone has been decreased. Patient will be DC'd home on Ceftin for one week for chronic bilateral mastoiditis. Current vital signs temp 98.3, heart rate 62, respiratory rate 16, blood pressure 116/60 with a pulse ox of 100% on nasal cannula 2 L. At this time patient denies chest pain or shortness breath. Patient denies nausea vomiting or diarrhea. Patient denies any urinary burning or frequency. Patient Condition at Discharge: Stable Plan - Discharge Summary Discharge Rx Participant: No New Discharge Prescriptions: New Spironolactone [Aldactone] 12.5 mg PO DAILY 30 Days #30 tab cefUROXime axetiL [Ceftin] 500 mg PO BID 7 Days #14 tab Continue Mirtazapine 45 mg PO HS QUEtiapine [SEROquel] 200 mg PO BID Montelukast [Singulair] 10 mg PO HS Apixaban [Eliquis] 5 mg PO BID Atorvastatin [Lipitor] 20 mg PO DAILY Nitroglycerin Sl Tabs [Nitrostat] 0.4 mg SL Q5M PRN PRN Reason: Chest Pain Fluticasone Nasal [place] [Flonase Nasal [place]] 1 spr EA NOSTRIL DAILY Amiodarone [Cordarone] 200 mg PO BID tab Furosemide [Lasix] 20 mg PO DAILY tab Fluticasone/Umeclidin/Vilanter [Trelegy Ellipta 100-62.5-25] 1 puff INHALATION RT-DAILY Ipratropium-Albuterol Nebulize [Duoneb 0.5 mg-3 mg/3 ml Soln] 3 ml INHALATION RT-QID each Dapagliflozin Propanediol [Farxiga] 10 mg PO DAILY tab Metoprolol Succinate (ER) [Toprol XL] 25 mg PO DAILY tab Albuterol Inhaler [Ventolin Hfa Inhaler] 2 puff INHALATION RT-QID PRN PRN Reason: Shortness Of Breath Aspirin 81 mg PO DAILY tab Tamsulosin [Flomax] 0.4 mg PO BID cap Pantoprazole [Protonix] 40 mg PO DAILY Multivitamins, Thera [Multivitamin (formulary)] 1 tab PO DAILY Ergocalciferol (Vitamin D2) [Drisdol (50,000 Iu)] 1,250 mcg PO TH Sacubitril/Valsartan [Entresto 24 mg-26 mg Tablet] 1 tab PO BID Discontinued Spironolactone [Aldactone] 25 mg PO DAILY Discharge Medication List Mirtazapine 45 mg PO HS 04/01/14 [History] QUEtiapine [SEROquel] 200 mg PO BID 04/01/14 [History] Montelukast [Singulair] 10 mg PO HS 07/20/14 [History] Apixaban [Eliquis] 5 mg PO BID 06/02/20 [History] Atorvastatin [Lipitor] 20 mg PO DAILY 06/02/20 [History] Nitroglycerin Sl Tabs [Nitrostat] 0.4 mg SL Q5M PRN 06/06/20 [History] Albuterol Inhaler [Ventolin Hfa Inhaler] 2 puff INHALATION RT-QID PRN 05/29/21 [History] Fluticasone Nasal [place] [Flonase Nasal [place]] 1 spr EA NOSTRIL DAILY 06/16/21 [History] Amiodarone [Cordarone] 200 mg PO BID tab 10/27/21 [Rx] Aspirin 81 mg PO DAILY tab 10/27/21 [Rx] Furosemide [Lasix] 20 mg PO DAILY tab 10/27/21 [Rx] Tamsulosin [Flomax] 0.4 mg PO BID cap 10/27/21 [Rx] Multivitamins, Thera [Multivitamin (formulary)] 1 tab PO DAILY 05/31/22 [History] Pantoprazole [Protonix] 40 mg PO DAILY 05/31/22 [History] Ergocalciferol (Vitamin D2) [Drisdol (50,000 Iu)] 1,250 mcg PO TH 09/03/22 [History] Fluticasone/Umeclidin/Vilanter [Trelegy Ellipta 100-62.5-25] 1 puff INHALATION RT-DAILY 09/03/22 [History] Dapagliflozin Propanediol [Farxiga] 10 mg PO DAILY tab 09/11/22 [Rx] Ipratropium-Albuterol Nebulize [Duoneb 0.5 mg-3 mg/3 ml Soln] 3 ml INHALATION RT-QID each 09/11/22 [Rx] Metoprolol Succinate (ER) [Toprol XL] 25 mg PO DAILY tab 09/11/22 [Rx] Sacubitril/Valsartan [Entresto 24 mg-26 mg Tablet] 1 tab PO BID 10/15/22 [History] Spironolactone [Aldactone] 12.5 mg PO DAILY 30 Days #30 tab 10/17/22 [Rx] cefUROXime axetiL [Ceftin] 500 mg PO BID 7 Days #14 tab 10/17/22 [Rx] Follow up Appointment(s)/Referral(s): Kaden Monsalve MD [STAFF PHYSICIAN] - 1 Week None,Stated [REFERRING] - 1-2 days Roxanna Patel MD [Primary Care Provider] - 1-2 Days Activity/Diet/Wound Care/Special Instructions: Activity as tolerated Diet heart healthy Discharge Disposition: HOME SELF-CARE
[2022-10-17 12:04] VITALS: PULSE 68
[2022-10-18] MEDS ORDERED: ERGOCALCIFEROL 1,250 MCG (50,000 IU) CAPSULE PO SCH (09:00)
== END 2022-10-17 14:45 | disposition home or self-care (01) ==
LOC: EC 13:10 → 6NMEDSUR 15:50
PROVIDERS: ADMIT Internal Medicine; ATTEND Internal Medicine
DX: R55 Syncope and collapse (principal); R07.89 Other chest pain; K21.9 Gastro-esophageal reflux disease without esophagitis; D50.9 Iron deficiency anemia, unspecified; G47.33 Obstructive sleep apnea (adult) (pediatric); G31.9 Degenerative disease of nervous system, unspecified; M10.9 Gout, unspecified; I13.0 Hypertensive heart and chronic kidney disease with heart failure and stage 1 through stage 4 chronic kidney disease, or unspecified chronic kidney disease; N18.30 Chronic kidney disease, stage 3 unspecified; I50.9 Heart failure, unspecified; I69.311 Memory deficit following cerebral infarction; I25.10 Atherosclerotic heart disease of native coronary artery without angina pectoris; F41.9 Anxiety disorder, unspecified; M77.32 Calcaneal spur, left foot; J44.9 Chronic obstructive pulmonary disease, unspecified; F32.A Depression, unspecified; E78.00 Pure hypercholesterolemia, unspecified; I25.5 Ischemic cardiomyopathy; I48.0 Paroxysmal atrial fibrillation; F17.290 Nicotine dependence, other tobacco product, uncomplicated; H70.13 Chronic mastoiditis, bilateral; I67.2 Cerebral atherosclerosis; Z95.810 Presence of automatic (implantable) cardiac defibrillator; Z90.49 Acquired absence of other specified parts of digestive tract; Z95.5 Presence of coronary angioplasty implant and graft; Z79.82 Long term (current) use of aspirin; Z79.01 Long term (current) use of anticoagulants; Z79.899 Other long term (current) drug therapy; Z79.84 Long term (current) use of oral hypoglycemic drugs; Z88.5 Allergy status to narcotic agent; Z88.8 Allergy status to other drugs, medicaments and biological substances; Z98.42 Cataract extraction status, left eye; Z98.41 Cataract extraction status, right eye; Z63.4 Disappearance and death of family member; Z82.49 Family history of ischemic heart disease and other diseases of the circulatory system; Z83.79 Family history of other diseases of the digestive system; Z84.1 Family history of disorders of kidney and ureter; Z99.81 Dependence on supplemental oxygen; Z60.2 Problems related to living alone
CPT/HCPCS: 96365; 96366; 99285; 36415; 94640 ×4; 94760 ×2; 93005; 83880; 80053 ×2; 84484; 85025 ×2; 81003; 73610; 71045; 93880; 70450; G0378 ×3; J0696 ×2

== ENCOUNTER 2023-01-09 08:50 | Emergency (ER) | payer MEDICARE, OTHER ==
[2023-01-09 09:10] VITALS: TEMP 97.9
[2023-01-09] MEDS ORDERED: methylPREDNISolone SOD SUCCI 125 MG/2 ML VIAL IV STA (09:14)
[2023-01-09] MEDS ORDERED: IPRATROPIUM-ALBUTEROL 3 ML NEB INHALATION STA (09:14)
--- NOTE | 2023-01-09 09:25 | ED ---
URI HPI - General Chief Complaint: Upper Respiratory Infection Stated Complaint: TENA Time Seen by Provider: 01/09/23 08:51 Source: patient, EMS, RN notes reviewed Mode of arrival: EMS Limitations: no limitations - History of Present Illness Initial Comments: 72-year-old male presents emergency Department chief complaint of cough and cold like symptoms. Patient states been sick for 1 week. Patient did recently see PCP who placed him on Augmentin. Patient states he continues to have nasal congestion, sore throat, chest congestion. He is a daily smoker history of asthma. Patient denies any chest pain denies any reported night sweats directed fevers. Patient denies nausea vomiting diarrhea constipation - Related Data Home Medications Medication Instructions Recorded Confirmed Mirtazapine 45 mg PO HS 04/01/14 10/15/22 QUEtiapine [SEROquel] 200 mg PO BID 04/01/14 10/15/22 Montelukast [Singulair] 10 mg PO HS 07/20/14 10/15/22 Apixaban [Eliquis] 5 mg PO BID 06/02/20 10/15/22 Atorvastatin [Lipitor] 20 mg PO DAILY 06/02/20 10/15/22 Nitroglycerin Sl Tabs [Nitrostat] 0.4 mg SL Q5M PRN 06/06/20 10/15/22 Albuterol Inhaler [Ventolin Hfa 2 puff INHALATION RT-QID PRN 05/29/21 10/15/22 Inhaler] Fluticasone Nasal [place] [Flonase 1 spr EA NOSTRIL DAILY 06/16/21 10/15/22 Nasal [place]] Multivitamins, Thera [Multivitamin 1 tab PO DAILY 05/31/22 10/15/22 (formulary)] Pantoprazole [Protonix] 40 mg PO DAILY 05/31/22 10/15/22 Ergocalciferol (Vitamin D2) 1,250 mcg PO TH 09/03/22 10/15/22 [Drisdol (50,000 Iu)] Fluticasone/Umeclidin/Vilanter 1 puff INHALATION RT-DAILY 09/03/22 10/15/22 [Trelegy Ellipta 100-62.5-25] Sacubitril/Valsartan [Entresto 24 1 tab PO BID 10/15/22 10/15/22 mg-26 mg Tablet] Previous Rx's Medication Instructions Recorded Amiodarone [Cordarone] 200 mg PO BID tab 10/27/21 Aspirin 81 mg PO DAILY tab 10/27/21 Furosemide [Lasix] 20 mg PO DAILY tab 10/27/21 Tamsulosin [Flomax] 0.4 mg PO BID cap 10/27/21 Dapagliflozin Propanediol [Farxiga] 10 mg PO DAILY tab 09/11/22 Ipratropium-Albuterol Nebulize 3 ml INHALATION RT-QID each 09/11/22 [Duoneb 0.5 mg-3 mg/3 ml Soln] Metoprolol Succinate (ER) [Toprol 25 mg PO DAILY tab 09/11/22 XL] Spironolactone [Aldactone] 12.5 mg PO DAILY 30 Days #30 tab 10/17/22 cefUROXime axetiL [Ceftin] 500 mg PO BID 7 Days #14 tab 10/17/22 Azithromycin [Zithromax Z Pack] 0 tab PO DIRECTED #6 tab 01/09/23 predniSONE 50 mg PO DAILY #5 tab 01/09/23 Allergies Allergy/AdvReac Type Severity Reaction Status Date / Time Barbiturates Allergy Anaphylaxis Verified 10/15/22 15:12 doxepin Allergy Anaphylaxis Verified 10/15/22 15:12 levofloxacin [From Levaquin] Allergy Dyspnea & Verified 10/15/22 15:12 Leg Swelling and Pain & Headache Review of Systems ROS Statement: Those systems with pertinent positive or pertinent negative responses have been documented in the HPI. ROS Other: All systems not noted in ROS Statement are negative. 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 Stovall, gout bilateral feet, occasional numbness L leg/L great toe, diverticulitis/diverticulosis hx of PHIL with CPAP but no longer an issue since wt. 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 History of Any Multi-Drug Resistant Organisms: None Reported Past Surgical History: AICD, Cholecystectomy, Heart Catheterization, Heart Catheterization With Stent, Hernia Repair, Pacemaker, Tonsillectomy Additional Past Surgical History / Comment(s): 07/24/14 EGD/colonoscopy with polypectomy/bx, 2005 AICD/2014 AICD changed to medtronic, 2002 Cardiac stent in [place], [address] [facility], upper teeth extracted for denture, L ear has tube, R ear plugged, cyst removed L eyelid, bilateral cataract removal, L g anglion cyst removal, L/R inguinal hernia repairs with mesh, penile implant. Past Anesthesia/Blood Transfusion Reactions: No Reported Reaction Date of Last Stent Placement:: 2002 Type of Cardiac Device: AICD Device Placement Date:: 2014 Past Psychological History: Anxiety, Depression Smoking Status: Former smoker Past Alcohol Use History: None Reported Past Drug Use History: None Reported - Past Family History Father Family Medical History: Coronary Artery Disease (CAD), Pneumonia Additional Family Medical History / Comment(s): Father of pneumonia at the age of 82 yrs. Mother Family Medical History: Liver Disease, Renal Disease Additional Family Medical History / Comment(s): father passed after a bout with pneumonia General Exam Limitations: no limitations General appearance: alert, in no apparent distress Head exam: Present: atraumatic, normocephalic, normal inspection Eye exam: Present: normal appearance, PERRL, EOMI. Absent: scleral icterus, conjunctival injection, periorbital swelling ENT exam: Present: normal exam, normal oropharynx, mucous membranes moist Neck exam: Present: normal inspection. Absent: tenderness, meningismus, lymphadenopathy Respiratory exam: Present: wheezes. Absent: normal lung sounds bilaterally, respiratory distress, rales, rhonchi, stridor Cardiovascular Exam: Present: regular rate, normal rhythm, normal heart sounds. Absent: systolic murmur, diastolic murmur, rubs, gallop, clicks Course Vital Signs 01/09/23 08:55 Temperature 97.9 F Pulse Rate 79 Respiratory 18 Rate Blood Pressure 160/99 O2 Sat by Pulse 96 Oximetry Medical Decision Making - Medical Decision Making Was pt. sent in by a medical professional or institution (, PA, FOUNDATION COORDINATOR, urgent care, hospital, or snf...) When possible be specific @ -No Did you speak to anyone other than the patient for history (EMS, parent, family, police, friend...)? What history was obtained from this source @ -No Did you review nursing and triage notes (agree or disagree)? Why? @ -I reviewed and agree with nursing and triage notes Were old charts reviewed (outside hosp., previous admission, EMS record, old EKG, old radiological studies, urgent care reports/EKG's, snf records)? Report findings @ -Reviewed recent laboratory studies and x-ray Differential Diagnosis (chest pain, altered mental status, abdominal pain women, abdominal pain men, vaginal bleeding, weakness, fever, dyspnea, syncope, headache, dizziness, GI bleed, back pain, seizure, CVA, palpatations, mental health, musculoskeletal)? @ -Differential Dyspnea: Coronary syndrome, arrhythmia, tamponade, asthma, COPD, pulmonary embolism, pneumonia, pneumothorax, pulmonary effusion, anaphylaxis, diabetic ketoacidosis, flailed chest, pulmonary contusion, diaphragmatic rupture, anemia, neuromuscular, this is not meant to be an all-inclusive list. EKG interpreted by me (3pts min.). @ -As above X-rays interpreted by me (1pt min.). @ -Chest x-ray shows possible atelectasis versus early infiltrate left CT interpreted by me (1pt min.). @ -None done U/S interpreted by me (1pt. min.). @ -None done What testing was considered but not performed or refused? (CT, X-rays, U/S, labs)? Why? @ -None What meds were considered but not given or refused? Why? @ -None Did you discuss the management of the patient with other professionals (professionals i.e. , PA, FOUNDATION COORDINATOR, lab, RT, psych nurse, social media executive, wallpaper inspector, teacher, security police officer, case resource manager)? Give summary @ -No Was smoking cessation discussed for >3mins.? @ -I discussed smoking cessation for greater than 3 minutes. The risk of smoking were discussed with the patient including but not limited to risks of cancer, stroke, coronary artery disease and COPD. Also discussed with patient were multiple methods of quitting smoking. Lastly we discussed the financial cost of smoking. Was critical care preformed (if so, how long)? @ -No Were there social determinants of health that impacted care today? How? (Homelessness, low income, unemployed, alcoholism, drug addiction, transportation, low edu. Level, literacy, decrease access to med. care, half-way, rehab)? @ -No Was there de-escalation of care discussed even if they declined (Discuss DNR or withdrawal of care, Hospice)? DNR status @ -No What co-morbidities impacted this encounter? (DM, HTN, Smoking, COPD, CAD, Cancer, CVA, ARF, Chemo, Hep., AIDS, mental health diagnosis, sleep apnea, morbid obesity)? @ -Asthma, smoking Was patient admitted / discharged? Hospital course, mention meds given and route, prescriptions, significant lab abnormalities, going to OR and other pertinent info. @ -Discharged patient has early infiltrate patient is not hypoxic. Patient discharged with antibiotics, steroids. Patient will have close follow-up and return parameters were discussed. Undiagnosed new problem with uncertain prognosis? @ -No Drug Therapy requiring intensive monitoring for toxicity (Heparin, Nitro, Insulin, Cardizem)? @ -No Were any procedures done? @ -No Diagnosis/symptom? @ -Pneumonia] Acute, or Chronic, or Acute on Chronic? @ -Acute Uncomplicated (without systemic symptoms) or Complicated (systemic symptoms)? @ -Complicated Side effects of treatment? @ -No Exacerbation, Progression, or Severe Exacerbation? @ -No Poses a threat to life or bodily function? How? (Chest pain, [place], [place], pneumonia, PE, COPD, DKA, ARF, appy, cholecystitis, CVA, Diverticulitis, Homicidal, Suicidal, threat to staff... and all critical care pts) @ -No - Lab Data Result diagrams: 01/09/23 09:05 01/09/23 09:05 Lab Results 01/09/23 01/09/23 01/09/23 Range/Units 09:05 09:05 09:21 WBC 7.7 (3.8-10.6) k/uL RBC 4.80 (4.30-5.90) m/uL Hgb 12.0 L (13.0-17.5) gm/dL Hct 37.9 L (39.0-53.0) % MCV 79.0 L (80.0-100.0) fL MCH 25.0 (25.0-35.0) pg MCHC 31.7 (31.0-37.0) g/dL RDW 18.5 H (11.5-15.5) % Plt Count 319 (150-450) k/uL MPV 7.6 Neutrophils % 47 % Lymphocytes % 44 % Monocytes % 5 % Eosinophils % 3 % Basophils % 0 % Neutrophils # 3.6 (1.3-7.7) k/uL Lymphocytes # 3.4 (1.0-4.8) k/uL Monocytes # 0.4 (0-1.0) k/uL Eosinophils # 0.2 (0-0.7) k/uL Basophils # 0.0 (0-0.2) k/uL Hypochromasia Moderate Anisocytosis Slight Microcytosis Slight Sodium 138 (137-145) mmol/L Potassium 4.6 (3.5-5.1) mmol/L Chloride 107 (98-107) mmol/L Carbon Dioxide 22 (22-30) mmol/L Anion Gap 9 mmol/L BUN 26 H (9-20) mg/dL Creatinine 1.09 (0.66-1.25) mg/dL Est GFR (CKD-EPI)AfAm 78 (>60 ml/min/1.73 sqM) Est GFR (CKD-EPI)NonAf 68 (>60 ml/min/1.73 sqM) Glucose 115 H (74-99) mg/dL Calcium 9.4 (8.4-10.2) mg/dL Magnesium 2.0 (1.6-2.3) mg/dL Total Bilirubin 0.5 (0.2-1.3) mg/dL AST 34 (17-59) U/L ALT 32 (4-49) U/L Alkaline Phosphatase 107 (38-126) U/L Total Protein 7.4 (6.3-8.2) g/dL Albumin 4.2 (3.5-5.0) g/dL Influenza Type A (PCR) Not Detected (Not Detectd) Influenza Type B (PCR) Not Detected (Not Detectd) RSV (PCR) Not Detected (Not Detectd) SARS-CoV-2 (PCR) Not Detected (Not Detectd) - EKG Data -: EKG Interpreted by [facility] EKG Comments: EKG performed at 9:02 sinus rhythm with first-degree block rate of 77 TX 214 QRS 113 QT/QTC 391/423 Disposition Clinical Impression: Pneumonia Disposition: HOME SELF-CARE Condition: Stable Instructions (If sedation given, give patient instructions): Pneumonia (ED) Additional Instructions: Please return to the Emergency Department if symptoms worsen or any other concerns. Prescriptions: predniSONE 50 mg PO DAILY #5 tab Azithromycin [Zithromax Z Pack] 0 tab PO DIRECTED #6 tab Is patient prescribed a controlled substance at d/c from ED?: No Referrals: Roxanna Patel MD [Primary Care Provider] - 1-2 days Time of Disposition: 10:35
[2023-01-09 09:30] LABS: Anisocytosis Slight; Basophils % (A) 0 %; Eosinophils # (A) 0.2 k/uL (0-0.7); Eosinophils % (A) 3 %; HCT 37.9 % (39.0-53.0); Hypochromasia Moderate; Lymphocytes # (A) 3.4 k/uL (1.0-4.8); Lymphocytes % (A) 44 %; MCHC 31.7 g/dL (31.0-37.0); Mean Platelet Volume 7.6; Microcytosis Slight; Monocytes # (A) 0.4 k/uL (0-1.0); Monocytes % (A) 5 %; Neutrophils # (A) 3.6 k/uL (1.3-7.7); Neutrophils % (A) 47 %; Platelet Count 319 k/uL (150-450); RDW 18.5 % (11.5-15.5); WBC 7.7 k/uL (3.8-10.6)
[2023-01-09 09:45] LABS: ALT 32 U/L (4-49); AST 34 U/L (17-59); African American GFR (CKD) 78 (>60 ml/min/1.73 sqM); Albumin 4.2 g/dL (3.5-5.0); Alkaline Phosphatase 107 U/L (38-126); Anion Gap 9 mmol/L; Blood Urea Nitrogen 26 mg/dL (9-20); Calcium 9.4 mg/dL (8.4-10.2); Carbon Dioxide 22 mmol/L (22-30); Chloride 107 mmol/L (98-107); Glucose 115 mg/dL (74-99); Non-African American GFR(CKD) 68 (>60 ml/min/1.73 sqM); Sodium 138 mmol/L (137-145); Total Bilirubin 0.5 mg/dL (0.2-1.3); Total Protein 7.4 g/dL (6.3-8.2)
[2023-01-09 09:53] LABS: Potassium 4.6 mmol/L (3.5-5.1)
--- NOTE | 2023-01-09 09:54 | XR ---
EXAMINATION TYPE: XR chest 2V DATE OF EXAM: 01/09/2023 COMPARISON: 12/20/2022 HISTORY: 72-year-old male with cough and congestion TECHNIQUE: PA and lateral views FINDINGS: Left anterior chest wall AICD generator with right atrial and right ventricular leads. Heart borderli ne in size. There is a trace left pleural effusion with patchy left basilar opacity. IMPRESSION: Trace left pleural effusion with patchy left basilar atelectasis and/or infiltrate.
[2023-01-09] MEDS ORDERED: cefTRIAXone IN SWFI 1,000 MG/10 ML SYRINGE IVP STA (10:30)
[2023-01-09 11:25] VITALS: BP 135/77; PULSE 65; RESP 20
== END 2023-01-09 11:06 | disposition home or self-care (01) ==
LOC: EC 08:50
DX: J18.9 Pneumonia, unspecified organism (principal); I44.0 Atrioventricular block, first degree; I48.91 Unspecified atrial fibrillation; J44.9 Chronic obstructive pulmonary disease, unspecified; I25.10 Atherosclerotic heart disease of native coronary artery without angina pectoris; E78.5 Hyperlipidemia, unspecified; K21.9 Gastro-esophageal reflux disease without esophagitis; I11.0 Hypertensive heart disease with heart failure; I50.9 Heart failure, unspecified; F41.9 Anxiety disorder, unspecified; F32.A Depression, unspecified; Z86.73 Personal history of transient ischemic attack (TIA), and cerebral infarction without residual deficits; Z87.891 Personal history of nicotine dependence; Z88.8 Allergy status to other drugs, medicaments and biological substances; Z79.01 Long term (current) use of anticoagulants; Z79.51 Long term (current) use of inhaled steroids; Z79.899 Other long term (current) drug therapy; Z20.822 Contact with and (suspected) exposure to COVID-19
CPT/HCPCS: 99285; 99406; 96374; 96375; 36415; 94640; 80053; 83735; 85025; 87636; 71046; J2930; J0696

== ENCOUNTER → 2023-04-23 | Outpatient (CLI) | payer MEDICARE, OTHER ==
--- NOTE | 2023-04-23 11:41 | CT ---
EXAMINATION TYPE: CT sinus wo con CT DLP: 577.3 mGycm, Automated exposure control for dose reduction was used. DATE OF EXAM: 04/23/2023 11:18 AM COMPARISON: CT brain 10/15/2022. CLINICAL INDICATION:Male, 73 years old with history of J32.0 CHRONIC MAXILLARY SINUSITIS; PHH, sinusi tis CONTRAST: None. TECHNIQUE: Multiple thin axial images were obtained through the paranasal sinuses . Additional tejeda l and sagittal reformatted images were submitted for evaluation. FINDINGS: Frontal sinuses: Normally developed and aerated. Frontal Recess: Clear Maxillary Sinuses: Normally developed. Right maxillary sinus is well aerated. Polypoid lesion within the posterior left maxillary sinus measuring up to 1.4 cm likely representing a mucous retention cyst . No osseous erosion. Similar to prior exam. Maxillary Infundibula(OMC): Clear, . Ethmoid sinuses: Normally developed and aerated. Ethmoidal notch: Supraorbital pneumatization is iden tified. Sphenoid sinuses: Normally developed. Right sphenoid sinuses well aerated. Polypoid 2.6 cm lesion wit hin the left sphenoid sinus. No osseous erosion. Similar to prior exam. There is presellar sphenoid s inus pneumatization without evidence of dehiscence. No dehiscence of carotid canal. No evidence of o ptic nerve dehiscence within the sphenoid sinus. Sphenoethmoidal recesses: Clear. Nasal septum: Within normal limits.. Nasal Turbinates: Within normal limits. Mastoid air cells & middle ears: Visualized right mastoid air cells are clear. There is opacification again of the left mastoid air cells with opacification within the left middle ear canal again. Modified Soft tissues & Brain: Partially seen without gross abnormality. Globes are intact. Bilateral aphakia. Other: Cribriform plate demonstrates symmetric Keros classification type 3 cribriform plate. No evidence of bony dehiscence of skull base. Lamina papyracea is intact without evidence of remote orbital fracture or orbital prolapse into the e thmoid sinus. IMPRESSION: 1. The ostiomeatal units, frontonasal and sphenoethmoidal recesses are clear. 2. Redemonstration of polypoid 2.6 cm lesion within the left sphenoid sinus and polypoid 1.4 cm lesio n within the left maxillary sinus. Cannot exclude polyps but probably represent mucous retention cyst s. 3. Continued opacification of the left mastoid air cells and left middle ear. Probable chronic mastoi ditis. Consider direct visualization.
== END | disposition home or self-care (01) ==
LOC: RADCTMAIN 10:58
PROVIDERS: ATTEND Internal Medicine
DX: J34.89 Other specified disorders of nose and nasal sinuses (principal); H74.8X2 Other specified disorders of left middle ear and mastoid; J32.0 Chronic maxillary sinusitis
CPT/HCPCS: 70486

== ENCOUNTER 2023-11-11 21:02 | Observation (INO) | payer MEDICARE, OTHER ==
[2023-11-12] MEDS ORDERED: ACETAMINOPHEN TAB 325 MG TAB ONE (16:54)
[2023-11-12] MEDS ORDERED: APIXABAN 5 MG TAB ONE (20:36)
[2023-11-12] MEDS ORDERED: DAPAGLIFLOZIN PROPANEDIOL 10 MG TABLET ONE (20:36)
[2023-11-12] MEDS ORDERED: ATORVASTATIN 40 MG TAB ONE (20:36)
[2023-11-12] MEDS ORDERED: MIRTAZAPINE 15 MG TAB ONE (20:37)
[2023-11-12] MEDS ORDERED: TAMSULOSIN 0.4 MG CAP.ER.24H PO ONE (20:37)
[2023-11-12] MEDS ORDERED: QUEtiapine 200 MG TAB ONE (20:37)
[2023-11-12] MEDS ORDERED: MONTELUKAST 10 MG TAB ONE (20:38)
[2023-11-13] MEDS ORDERED: APIXABAN 5 MG TAB ONE ×2 (10:26→21:09)
[2023-11-13] MEDS ORDERED: DAPAGLIFLOZIN PROPANEDIOL 10 MG TABLET ONE (10:28)
[2023-11-13] MEDS ORDERED: TAMSULOSIN 0.4 MG CAP.ER.24H PO ONE ×2 (10:29→21:10)
[2023-11-13] MEDS ORDERED: SPIRONOLACTONE 25 MG TAB ONE (10:29)
[2023-11-13] MEDS ORDERED: PANTOPRAZOLE 40 MG TABLET PO ONE (10:29)
[2023-11-13] MEDS ORDERED: MULTIVITAMINS, THERA 1 EACH TAB ONE (10:29)
[2023-11-13] MEDS ORDERED: FUROSEMIDE 20 MG TAB ONE (10:29)
[2023-11-13] MEDS ORDERED: ATORVASTATIN 40 MG TAB ONE (10:30)
[2023-11-13] MEDS ORDERED: ACETAMINOPHEN TAB 325 MG TAB ONE ×2 (11:05→17:43)
[2023-11-13] MEDS ORDERED: MONTELUKAST 10 MG TAB ONE (21:11)
[2023-11-13] MEDS ORDERED: MIRTAZAPINE 45 MG TABLET ONE (23:59)
[2023-11-13] MEDS ORDERED: QUEtiapine 200 MG TAB ONE (23:59)
[2023-11-14] MEDS ORDERED: IPRATROPIUM 0.5 MG/2.5 ML NEBU INHALATION ONE (05:11)
[2023-11-14] MEDS ORDERED: TAMSULOSIN 0.4 MG CAP.ER.24H PO ONE ×2 (07:47→22:12)
[2023-11-14] MEDS ORDERED: DAPAGLIFLOZIN PROPANEDIOL 10 MG TABLET ONE (07:47)
[2023-11-14] MEDS ORDERED: FUROSEMIDE 20 MG TAB ONE (07:47)
[2023-11-14] MEDS ORDERED: SPIRONOLACTONE 25 MG TAB ONE (07:48)
[2023-11-14] MEDS ORDERED: PANTOPRAZOLE 40 MG TABLET PO ONE (07:48)
[2023-11-14] MEDS ORDERED: APIXABAN 5 MG TAB ONE ×2 (07:48→22:11)
[2023-11-14] MEDS ORDERED: ATORVASTATIN 40 MG TAB ONE (07:48)
[2023-11-14] MEDS ORDERED: MULTIVITAMINS, THERA 1 EACH TAB ONE (07:48)
[2023-11-14] MEDS ORDERED: ACETAMINOPHEN TAB 325 MG TAB ONE (22:11)
[2023-11-14] MEDS ORDERED: MONTELUKAST 10 MG TAB ONE (22:11)
[2023-11-14] MEDS ORDERED: QUEtiapine 200 MG TAB ONE (23:59)
[2023-11-14] MEDS ORDERED: MIRTAZAPINE 45 MG TABLET ONE (23:59)
[2023-11-15] MEDS ORDERED: FUROSEMIDE 20 MG TAB ONE (10:56)
[2023-11-15] MEDS ORDERED: APIXABAN 5 MG TAB ONE ×2 (10:56→20:29)
[2023-11-15] MEDS ORDERED: TAMSULOSIN 0.4 MG CAP.ER.24H PO ONE ×2 (10:56→20:29)
[2023-11-15] MEDS ORDERED: PANTOPRAZOLE 40 MG TABLET PO ONE (10:57)
[2023-11-15] MEDS ORDERED: ATORVASTATIN 40 MG TAB ONE (10:57)
[2023-11-15] MEDS ORDERED: MULTIVITAMINS, THERA 1 EACH TAB ONE (10:57)
[2023-11-15] MEDS ORDERED: SPIRONOLACTONE 25 MG TAB ONE (10:57)
[2023-11-15] MEDS ORDERED: DAPAGLIFLOZIN PROPANEDIOL 10 MG TABLET ONE (10:58)
[2023-11-15] MEDS ORDERED: ACETAMINOPHEN TAB 325 MG TAB ONE ×2 (11:20→20:29)
[2023-11-15] MEDS ORDERED: MONTELUKAST 10 MG TAB ONE (20:28)
[2023-11-15] MEDS ORDERED: MELOXICAM 7.5 MG TAB ONE (23:59)
[2023-11-15] MEDS ORDERED: QUEtiapine 200 MG TAB ONE (23:59)
[2023-11-15] MEDS ORDERED: SACUBITRIL/VALSARTAN 24 MG-26 MG TABLET PO ONE (23:59)
[2023-11-15] MEDS ORDERED: MIRTAZAPINE 45 MG TABLET ONE (23:59)
[2023-11-16] MEDS ORDERED: IPRATROPIUM 0.5 MG/2.5 ML NEBU INHALATION ONE (07:38)
[2023-11-16] MEDS ORDERED: FUROSEMIDE 20 MG TAB ONE (07:49)
[2023-11-16] MEDS ORDERED: METOPROLOL SUCCINATE (ER) 25 MG TAB.ER.24H PO ONE (07:49)
[2023-11-16] MEDS ORDERED: DAPAGLIFLOZIN PROPANEDIOL 10 MG TABLET ONE (07:49)
[2023-11-16] MEDS ORDERED: TAMSULOSIN 0.4 MG CAP.ER.24H PO ONE (07:49)
[2023-11-16] MEDS ORDERED: MULTIVITAMINS, THERA 1 EACH TAB ONE (07:50)
[2023-11-16] MEDS ORDERED: SACUBITRIL/VALSARTAN 24 MG-26 MG TABLET PO ONE (07:50)
[2023-11-16] MEDS ORDERED: PANTOPRAZOLE 40 MG TABLET PO ONE (07:50)
[2023-11-16] MEDS ORDERED: APIXABAN 5 MG TAB ONE (07:50)
[2023-11-16] MEDS ORDERED: SPIRONOLACTONE 25 MG TAB ONE (07:50)
[2023-11-16] MEDS ORDERED: ATORVASTATIN 40 MG TAB ONE (07:50)
[2023-11-16] MEDS ORDERED: SYMBICORT 80-4.5 MCG INHALER INHALATION ONE (08:00)
[2023-11-16] MEDS ORDERED: MELOXICAM 7.5 MG TAB ONE (08:00)
[2023-11-16] MEDS ORDERED: MIRTAZAPINE 45 MG TABLET ONE (08:00)
[2023-11-16] MEDS ORDERED: QUEtiapine 200 MG TAB ONE (08:00)
[2023-11-17] MEDS ORDERED: HYDROmorphone 1 MG/ML 1 ML SYRINGE IVP PRN
[2023-11-17] MEDS ORDERED: NALOXONE 0.4 MG/ML 1 ML VIAL IVP PRN
[2023-11-17] MEDS ORDERED: ALBUTEROL NEBULIZED 2.5 MG/3 ML INHALATION PRN
[2023-11-17] MEDS ORDERED: ONDANSETRON 4 MG/2 ML VIAL IVP PRN
[2023-11-17] MEDS ORDERED: HYDROmorphone 2 MG TAB PO PRN (03:34)
[2023-11-17 05:37] LABS: ALT 26 U/L (4-49); AST 25 U/L (17-59); African American GFR (CKD) 71 (>60 ml/min/1.73 sqM); Albumin 3.5 g/dL (3.5-5.0); Albumin/Globulin Ratio 1.5; Alkaline Phosphatase 85 U/L (38-126); Anion Gap 4 mmol/L; Blood Urea Nitrogen 11 mg/dL (9-20); Calcium 9.2 mg/dL (8.4-10.2); Carbon Dioxide 26 mmol/L (22-30); Chloride 105 mmol/L (98-107); Globulin 2.4 g/dL; Glucose 93 mg/dL (74-99); Non-African American GFR(CKD) 61 (>60 ml/min/1.73 sqM); Potassium 4.3 mmol/L (3.5-5.1); Sodium 135 mmol/L (137-145); Total Bilirubin 0.4 mg/dL (0.2-1.3); Total Protein 5.9 g/dL (6.3-8.2)
[2023-11-17 05:38] LABS: HCT 43.1 % (39.0-53.0); HGB 13.4 gm/dL (13.0-17.5); Hypochromasia Moderate; MCH 26.6 pg (25.0-35.0); MCV 85.7 fL (80.0-100.0); Mean Platelet Volume 7.5; Platelet Count 330 k/uL (150-450); RBC 5.04 m/uL (4.30-5.90); WBC 6.2 k/uL (3.8-10.6)
[2023-11-17] MEDS: ACETAMINOPHEN TAB 325 MG TAB PO PRN (06:25)
[2023-11-17] MEDS: PANTOPRAZOLE 40 MG TABLET PO SCH (06:25)
[2023-11-17] MEDS: IPRATROPIUM 0.5 MG/2.5 ML NEBU INHALATION SCH (07:27)
[2023-11-17] MEDS: SYMBICORT 80-4.5 MCG INHALER INHALATION SCH (07:27)
[2023-11-17] MEDS: APIXABAN 5 MG TAB PO SCH (08:43)
[2023-11-17] MEDS: ATORVASTATIN 40 MG TAB PO SCH (08:43)
[2023-11-17] MEDS: DAPAGLIFLOZIN PROPANEDIOL 10 MG TABLET PO SCH (08:43)
[2023-11-17] MEDS: MULTIVITAMINS, THERA 1 EACH TAB PO SCH (08:43)
[2023-11-17] MEDS: TAMSULOSIN 0.4 MG CAP.ER.24H PO SCH (08:43)
[2023-11-17] MEDS: QUEtiapine 200 MG TAB PO SCH (08:43)
[2023-11-17] MEDS: AZELASTINE 137MCG/SPRAY NASAL SCH (08:44)
[2023-11-17] MEDS: SACUBITRIL/VALSARTAN 24 MG-26 MG TABLET PO SCH (08:46)
[2023-11-17] MEDS: METOPROLOL SUCCINATE (ER) 25 MG TAB.ER.24H PO SCH (08:46)
[2023-11-17] MEDS: MELOXICAM 7.5 MG TAB PO SCH (09:39)
[2023-11-17] MEDS: SPIRONOLACTONE 25 MG TAB PO SCH (09:42)
[2023-11-17] MEDS: FUROSEMIDE 20 MG TAB PO SCH (09:42)
--- NOTE | 2023-11-17 10:04 | P.PN ---
Subjective Progress Note Date: 11/17/23 This is a 73-year-old male patient presented to [facility] with a chief complaint of dizziness and shortness of breath. Patient reports that the symptoms originally started 4 months ago but have been worse over the past 2 days. Patient has a past medical history of hypertension, hyperlipidemia, COPD, atrial fibrillation in which she is maintained on Eliquis denies any history of smoking or alcohol use. Patient was admitted and cardiology and pulmonary services were consulted Please see paper chart for progress notes from 11/13/2023 to 11/16/2023 On 11/17/2023 patient is alert and oriented x 3. Current vital signs temp 97.9, heart rate 55, respiratory rate 15, blood pressure 94/49 with a pulse ox of 95% on room air. Patient still complaining of some dizziness. Patient denies chest pain or shortness of breath. Patient denies nausea vomiting or diarrhea. Patient denies any urinary burning or frequency. Lab work revealing WBC 6.2, hemoglobin 13.4, creatinine 1.17 bun 11. Neurology, cardiology and pulmonary services following Objective - Vital Signs Vital signs: Vital Signs Temp 97.9 F 11/17/23 08:45 Pulse 55 L 11/17/23 08:45 Resp 15 11/17/23 08:45 BP 94/49 11/17/23 08:45 Pulse Ox 95 11/17/23 08:45 FiO2 Intake & Output 11/16/23 11/17/23 11/17/23 18:59 06:59 18:59 Intake Total 118 Output Total 500 400 Balance -500 -282 Weight 107.501 kg Intake: Oral 118 Output: Urine 500 400 Other: Voiding Method Toilet # Bowel Movements 0 - Exam Head normocephalic Neck supple Lungs clear to auscultation bilaterally no wheezing or crackles Heart regular rate and rhythm S1-S2, no rub or gallop Abdomen is soft nontender nondistended positive bowel sounds no hepatosplenomegaly Extremities no edema Neuro alert and orientated to 3 - Labs CBC & Chem 7: 11/17/23 04:00 11/17/23 04:00 Labs: Abnormal Lab Results - Last 24 Hours (Table) 11/17/23 Range/Units 04:00 Sodium 135 L (137-145) mmol/L Total Protein 5.9 L (6.3-8.2) g/dL Assessment and Plan Assessment: 1. Episode of dizziness 2. Episode of shortness of breath 3. Underlying history of COPD 4. History of essential hypertension 5. History of atrial fibrillation maintained on Eliquis 6. History of congestive heart failure with cardiomyopathy, EF 15% on echocardiogram done in 2021 7. History of GERD 8. History of BPH DVT prophylaxis Eliquis. GI prophylax Protonix Cardiology, neurology and pulmonary services following 2D echo completed showing an EF of 30 to 35%. Patient was evaluated by car diology services cleared for discharge Pulmonary services cleared for discharge Neurology services following CT completed of head on 11/15/2023 showing no acute hemorrhage hydrocephalus or mass effect.
--- NOTE | 2023-11-17 11:17 | P.PN ---
Subjective Progress Note Date: 11/17/23 The patient is seen today November 17, 2023 and follow-up on the regular medical floor. He is currently sitting up in bed. Awake and alert in no acute distress. He denies any worsening shortness of breath, cough or congestion. He is maintaining good O2 saturations in the mid 90s on room air. He is afebrile. Hemodynamically stable. White count 6.2. Hemoglobin 13.4. Platelets 330. Sodium 135. Potassium 4.3. Bicarb 26. BUN 11. Creatinine 1.17. Glucose 93. Having some issues with dizziness and gait dysfunction when up walking with assistance. Neurology consulted. Objective - Vital Signs Vital signs: Vital Signs Temp 97.9 F 11/17/23 08:45 Pulse 55 L 11/17/23 08:45 Resp 15 11/17/23 08:45 BP 119/70 11/17/23 09:40 Pulse Ox 95 11/17/23 08:45 FiO2 Intake & Output 11/16/23 11/17/23 11/17/23 18:59 06:59 18:59 Intake Total 118 Output Total 500 400 Balance -500 -282 Weight 107.501 kg Intake: Oral 118 Output: Urine 500 400 Other: Voiding Method Toilet Toilet Urinal # Bowel Movements 0 - Exam GENERAL EXAM: Alert, active, pleasant 73-year-old male patient, on room air, comfortable in no apparent distress. HEAD: Normocephalic. EYES: Normal reaction of pupils, equal size. NOSE: Clear with pink turbinates. THROAT: No erythema or exudates. NECK: No masses, no JVD. CHEST: No chest wall deformity. LUNGS: Equal air entry with no crackles, wheeze, rhonchi or dullness. CVS: S1 and S2 normal with no audible murmur, regular rhythm. ABDOMEN: No hepatosplenomegaly, normal bowel sounds, no guarding or rigidity. SPINE: No scoliosis or deformity SKIN: No rashes CENTRAL NERVOUS SYSTEM: Gait dysfunction. No focal deficits, tone is normal in all 4 extremities. EXTREMITIES: There is no peripheral edema. No clubbing, no cyanosis. Peripheral pulses are intact. - Labs CBC & Chem 7: 11/17/23 04:00 11/17/23 04:00 Labs: Abnormal Lab Results - Last 24 Hours (Table) 08/25/24 Range/Units 04:00 Sodium 135 L (137-145) mmol/L Total Protein 5.9 L (6.3-8.2) g/dL Assessment and Plan Assessment: Assessment: Acute exacerbation of chronic obstructive pulmonary disease, recovered Gait dysfunction with dizziness of unclear etiology Hyperlipidemia Diabetes mellitus History of congestive heart failure History of atrial fibrillation, anticoagulated with Eliquis Plan: The patient was seen and evaluated Labs and medications reviewed Stable for discharge from the pulmonary standpoint Neurology and cardiology following Continue his home Trelegy, albuterol Follow-up with Dr. Cedeño in our office in 1 week This patient was seen independently by the pulmonary nurse practitioner addressing pulmonary issues I have personally seen and examined the patient, performed the documentation and the assessment and plan as written. Number of minutes spent on the visit: 24.
--- NOTE | 2023-11-17 17:37 | P.PN ---
Subjective Progress Note Date: 11/17/23 Patient was seen for a follow-up. Please refer to all the notes in the paper chart from the time of admission till yesterday (due to complete system shutdown). States feeling "negative". Still feeling dizzy. He feels as if he will fall. Head is hurting. Coughing at night. Not a lot, but little bit. When he turns his head to the left, feels strain in the right side of the neck. When he was walking to the bathroom, he felt the bottom of the heels felt as if somebody is sticking with the pins and needle. When he came back to the bed, and laid feet out, it went away. Objective - Vital Signs Vital signs: Vital Signs Temp 97.9 F 11/17/23 14:58 Pulse 61 11/17/23 14:58 Resp 16 11/17/23 14:58 BP 114/68 11/17/23 14:58 Pulse Ox 95 11/17/23 14:58 FiO2 Intake & Output 11/16/23 11/17/23 11/17/23 18:59 06:59 18:59 Intake Total 236 Output Total 500 700 Balance -500 -464 Weight 107.501 kg Intake: Oral 236 Output: Urine 500 700 Other: Voiding Method Toilet Toilet Urinal # Bowel Movements 0 - Exam Mental status, speech and language functions are normal. Rest of the examination is nonfocal. Please refer to previous exam. - Labs CBC & Chem 7: 11/17/23 04:00 11/17/23 04:00 Labs: Abnormal Lab Results - Last 24 Hours (Table) 11/17/23 Range/Units 04:00 Sodium 135 L (137-145) mmol/L Total Protein 5.9 L (6.3-8.2) g/dL Assessment and Plan Assessment: * Dizziness, lightheadedness, off and on for 6 months, unclear cause. Orthostatics are negative. Rule out BPPV, versus related to cardiopulmonary cause. * Frequent falls due to losing balance, rule out peripheral neuropathy * Borderline diabetes mellitus * Atrial fibrillation, on Eliquis * Pacemaker * Hypertension * Hyperlipidemia * COPD * Acid reflux Plan: * Continue Eliquis 5 mg twice daily * Continue Mobic 7.5 mg for neck pain. Feels neck pain is better. * CTA of head and neck revealed no significant stenosis. No dissection, significant stenosis or aneurysm reported. * CT head performed 11/16/2023 with no acute hemorrhage, hydrocephalus or mass effect. Paranasal sinuses are reported clear. * TSH normal 2.71. Hemoglobin A1c 6.3 on 10/09/2023. B12 level pending. * Recommend EMG and nerve conduction studies of bilateral lower extremities, rule out peripheral neuropathy. Recommend patient follow-up with neurologist. * If dizziness persist, would recommend follow-up with ENT specialist to rule out peripheral vestibular dysfunction.
[2023-11-17] MEDS: MIRTAZAPINE 45 MG TABLET PO SCH (19:55)
[2023-11-17] MEDS: MONTELUKAST 10 MG TAB PO SCH (19:55)
[2023-11-18 09:09] LABS: Basophils # (A) 0.07 X 10*3/uL (0.00-0.10); Eosinophils # (A) 0.27 X 10*3/uL (0.04-0.35); Eosinophils % (A) 3.8 %; HCT 43.7 % (39.6-50.0); HGB 13.4 g/dL (13.0-17.0); Lymphocytes # (A) 2.64 X 10*3/uL (0.90-5.00); Lymphocytes % (A) 36.8 %; MCH 26.3 pg (27.0-32.0); MCHC 30.7 g/dL (32.0-37.0); MCV 85.9 FL (80.0-97.0); Mean Platelet Volume 9.9 FL (9.5-12.2); Monocytes % (A) 11.2 %; NRBC Per 100 WBC 0 X 10*3/uL (0.00-0.01); Neutrophils # (A) 3.37 X 10*3/uL (1.80-7.70); Neutrophils % (A) 46.9 %; Platelet Count 325 X 10*3/uL (140-440); RBC 5.09 X 10*6/uL (4.40-5.60); RDW 15.4 % (11.5-14.5); WBC 7.17 X 10*3/uL (4.50-10.00)
[2023-11-18 09:21] LABS: ALT 33 U/L (10-49); AST 26 U/L (14-35); Albumin 3.9 g/dL (3.8-4.9); Albumin/Globulin Ratio 1.95 Ratio (1.60-3.17); Alkaline Phosphatase 100 U/L (41-126); Calcium 9.2 mg/dL (8.7-10.3); Carbon Dioxide 23.2 mmol/L (21.6-31.8); Chloride 104 mmol/L (96-109); Glucose 101 mg/dL (70-110); Potassium 4.6 mmol/L (3.5-5.5); Sodium 139 mmol/L (135-145); Total Bilirubin <0.2 mg/dL (0.3-1.2); Total Protein 5.9 g/dL (6.2-8.2)
[2023-11-18 09:29] LABS: C Reactive Protein <0.30 mg/dL (0.00-0.80)
[2023-11-18 10:01] VITALS: BMI 30.4
[2023-11-18] MEDS: ACETAMINOPHEN TAB 325 MG TAB ONE (12:32)
[2023-11-18] MEDS: SENNOSIDES-DOCUSATE SODIUM 1 EACH TAB PO ONE (12:32)
--- NOTE | 2023-11-18 17:21 | P.PN ---
Subjective Progress Note Date: 11/18/23 This is a 73-year-old male patient presented to [facility] with a chief complaint of dizziness and shortness of breath. Patient reports that the symptoms originally started 4 months ago but have been worse over the past 2 days. Patient has a past medical history of hypertension, hyperlipidemia, COPD, atrial fibrillation in which she is maintained on Eliquis denies any history of smoking or alcohol use. Patient was admitted and cardiology and pulmonary services were consulted Please see paper chart for progress notes from 11/13/2023 to 11/16/2023 On 11/17/2023 patient is alert and oriented x 3. Current vital signs temp 97.9, heart rate 55, respiratory rate 15, blood pressure 94/49 with a pulse ox of 95% on room air. Patient still complaining of some dizziness. Patient denies chest pain or shortness of breath. Patient denies nausea vomiting or diarrhea. Patient denies any urinary burning or frequency. Lab work revealing WBC 6.2, hemoglobin 13.4, creatinine 1.17 bun 11. Neurology, cardiology and pulmonary services following On 11/18/2023, patient was seen and examined on the medical floor, he is alert and oriented x 3 in no apparent distress, he is still complaining of severe dizziness, especially when standing and walking;. Otherwise he denies any complaints there is no fever or chills no headache, no chest pain no shortness of breath no cough no nausea or vomiting no abdominal pain no diarrhea and no urinary symptoms. Input from cardiology, neurology and pulmonary reviewed, possible discharge to home tomorrow Objective - Vital Signs Vital signs: Vital Signs Temp 97.9 F 11/18/23 14:38 Pulse 67 11/18/23 14:38 Resp 17 11/18/23 14:38 BP 106/63 11/18/23 14:38 Pulse Ox 95 11/18/23 14:38 FiO2 Intake & Output 11/17/23 11/18/23 11/18/23 18:59 06:59 18:59 Intake Total 700 293 5934 Output Total 987 019 0732 Balance -464 -320 180 Weight 107.501 kg Intake: Oral 560 169 4001 Output: Urine 665 884 8898 Other: Voiding Method Toilet Toilet Urinal Urinal # Voids 3 # Bowel Movements 1 - Exam In general patient is alert and oriented x 3 in no distress HEENT head normocephalic and atraumatic Neck is supple no JVD no goiter no lymphadenopathy no carotid bruit Chest examination is clear to auscultation no crackles no wheezing Cardiac exam reveals regular heart sounds S1 and S2 no gallops no murmurs Abdomen is soft nontender no organomegaly with normal bowel sounds Extremity exam reveals no edema no cyanosis or clubbing Neurological examination reveals no gross focal deficits - Labs CBC & Chem 7: 11/18/23 04:10 11/18/23 04:10 Labs: Abnormal Lab Results - Last 24 Hours (Table) 11/17/23 11/17/23 11/18/23 Range/Units 04:00 04:00 04:10 MCH 26.3 L (27.0-32.0) pg MCHC 30.7 L (32.0-37.0) g/dL RDW 15.4 H (11.5-14.5) % ESR 23 H (0-20) mm/Hr BUN/Creatinine Ratio (12.00-20.00) Ratio Total Bilirubin (0.3-1.2) mg/dL Total Protein (6.2-8.2) g/dL Vitamin B12 1135.0 H (200.0-944.0) pg/mL 11/18/23 Range/Units 04:10 MCH (27.0-32.0) pg MCHC (32.0-37.0) g/dL RDW (11.5-14.5) % ESR (0-20) mm/Hr BUN/Creatinine Ratio 10.00 L (12.00-20.00) Ratio Total Bilirubin <0.2 L (0.3-1.2) mg/dL Total Protein 5.9 L (6.2-8.2) g/dL Vitamin B12 (200.0-944.0) pg/mL Assessment and Plan Plan: 1. Episode of dizziness 2. Episode of shortness of breath 3. Underlying history of COPD 4. History of essential hypertension 5. History of atrial fibrillation maintained on Eliquis 6. History of congestive heart failure with cardiomyopathy, EF 15% on echocardiogram done in 2021 7. History of GERD 8. History of BPH DVT prophylaxis Eliquis. GI prophylax Protonix Cardiology, neurology and pulmonary services following 2D echo completed showing an EF of 30 to 35%. Patient was evaluated by cardiology services cleared for discharge Pulmonary services cleared for discharge Neurology services following CT completed of head on 11/15/2023 showing no acute hemorrhage hydrocephalus or mass effect.
--- NOTE | 2023-11-19 09:37 | P.DS ---
Providers Date of admission: 11/11/23 21:02 Expected date of discharge: 11/19/23 Attending physician: Roxanna Patel Consults: 11/16/23 16:22 Consult Physician Routine Consulting Provider: Jessica Hampton Consult Reason/Comments: dizziness, peripheral neuropathy Do you want consulting provider notified?: Already Contacted Placement Type Exists?: Yes 11/16/23 16:26 Consult Physician Routine Consulting Provider: Bettie Cedeño Consult Reason/Comments: copd Do you want consulting provider notified?: Already Contacted Placement Type Exists?: Yes Primary care physician: Stated None Hospital Course: Discharge diagnosis 1. Episode of dizziness 2. Episode of shortness of breath 3. Underlying history of COPD 4. History of essential hypertension 5. History of atrial fibrillation maintained on Eliquis 6. History of congestive heart failure with cardiomyopathy, EF 15% on echocardiogram done in 2021 7. History of GERD 8. History of BPH 2D echo completed showing an EF of 30 to 35%. Patient was evaluated by cardiology services cleared for discharge Pulmonary services cleared for discharge Neurology services following CT completed of head on 11/15/2023 showing no acute hemorrhage hydrocephalus or mass effect. Hospital course This is a 73-year-old male patient presented to [facility] with a chief complaint of dizziness and shortness of breath. Patient reports that the symptoms originally started 4 months ago but have been worse over the past 2 days. Patient has a past medical history of hypertension, hyperlipidemia, COPD, atrial fibrillation in which she is maintained on Eliquis denies any history of smoking or alcohol use. Patient was admitted and cardiology and pulmonary services were consulted Please see paper chart for progress notes from 11/13/2023 to 11/16/2023 On 11/17/2023 patient is alert and oriented x 3. Current vital signs temp 97.9, heart rate 55, respiratory rate 15, blood pressure 94/49 with a pulse ox of 95% on room air. Patient still complaining of some dizziness. Patient denies chest pain or shortness of breath. Patient denies nausea vomiting or diarrhea. Patient denies any urinary burning or frequency. Lab work revealing WBC 6.2, hemoglobin 13.4, creatinine 1.17 bun 11. Neurology, cardiology and pulmonary services following On 11/18/2023, patient was seen and examined on the medical floor, he is alert and oriented x 3 in no apparent distress, he is still complaining of severe dizziness, especially when standing and walking;. Otherwise he denies any c omplaints there is no fever or chills no headache, no chest pain no shortness of breath no cough no nausea or vomiting no abdominal pain no diarrhea and no urinary symptoms. Input from cardiology, neurology and pulmonary reviewed, possible discharge to home tomorrow On 11/19/2023 patient is alert and oriented x 3. Patient reports improvement with dizziness but still having some headache and mild dizziness with activity. Patient has been thoroughly worked up and evaluated by cardiology neurology and pulmonary services. Patient to follow-up with outpatient neurology and ENT and cardiology services for further management. Patient denies chest pain or shortness of breath. Patient denies nausea vomiting or diarrhea. Patient denies any urinary burning or frequency Patient Condition at Discharge: Stable Plan - Discharge Summary New Discharge Prescriptions: Continue Mirtazapine 45 mg PO HS QUEtiapine [SEROquel] 200 mg PO BID Montelukast [Singulair] 10 mg PO HS Apixaban [Eliquis] 5 mg PO BID Atorvastatin [Lipitor] 20 mg PO DAILY Nitroglycerin Sl Tabs [Nitrostat] 0.4 mg SL Q5M PRN PRN Reason: Chest Pain Fluticasone Nasal Coats [Flonase Nasal Coats] 1 spr EA NOSTRIL DAILY Furosemide [Lasix] 20 mg PO DAILY tab Fluticasone/Umeclidin/Vilanter [Trelegy Ellipta 100-62.5-25] 1 puff INHALAT ION RT-DAILY Ipratropium-Albuterol Nebulize [Duoneb 0.5 mg-3 mg/3 ml Soln] 3 ml INHALATION RT-QID each Dapagliflozin Propanediol [Farxiga] 10 mg PO DAILY tab Metoprolol Succinate (ER) [Toprol XL] 25 mg PO DAILY tab Spironolactone [Aldactone] 12.5 mg PO DAILY 30 Days #30 tab predniSONE 50 mg PO DAILY #5 tab Albuterol Inhaler [Ventolin Hfa Inhaler] 2 puff INHALATION RT-QID PRN PRN Reason: Shortness Of Breath Aspirin 81 mg PO DAILY tab Tamsulosin [Flomax] 0.4 mg PO BID cap Pantoprazole [Protonix] 40 mg PO DAILY Multivitamins, Thera [Multivitamin (formulary)] 1 tab PO DAILY Ergocalciferol (Vitamin D2) [Drisdol (50,000 Iu)] 1,250 mcg PO TH Sacubitril/Valsartan [Entresto 24 mg-26 mg Tablet] 1 tab PO BID Discontinued Amiodarone [Cordarone] 200 mg PO BID tab Azithromycin [Zithromax Z Pack] 0 tab PO DIRECTED #6 tab cefUROXime axetiL [Ceftin] 500 mg PO BID 7 Days #14 tab Discharge Medication List Mirtazapine 45 mg PO HS 04/01/14 [History] QUEtiapine [SEROquel] 200 mg PO BID 04/01/14 [History] Montelukast [Singulair] 10 mg PO HS 07/20/14 [History] Apixaban [Eliquis] 5 mg PO BID 06/02/20 [History] Atorvastatin [Lipitor] 20 mg PO DAILY 06/02/20 [History] Nitroglycerin Sl Tabs [Nitrostat] 0.4 mg SL Q5M PRN 06/06/20 [History] Albuterol Inhaler [Ventolin Hfa Inhaler] 2 puff INHALATION RT-QID PRN 05/29/21 [History] Fluticasone Nasal Coats [Flonase Nasal Coats] 1 spr EA NOSTRIL DAILY 06/16/21 [History] Aspirin 81 mg PO DAILY tab 10/27/21 [Rx] Furosemide [Lasix] 20 mg PO DAILY tab 10/27/21 [Rx] Tamsulosin [Flomax] 0.4 mg PO BID cap 10/27/21 [Rx] Multivitamins, Thera [Multivitamin (formulary)] 1 tab PO DAILY 05/31/22 [History] Pantoprazole [Protonix] 40 mg PO DAILY 05/31/22 [History] Ergocalciferol (Vitamin D2) [Drisdol (50,000 Iu)] 1,250 mcg PO TH 09/03/22 [History] Fluticasone/Umeclidin/Vilanter [Trelegy Ellipta 100-62.5-25] 1 puff INHALATION RT-DAILY 09/03/22 [History] Dapagliflozin Propanediol [Farxiga] 10 mg PO DAILY tab 09/11/22 [Rx] Ipratropium-Albuterol Nebulize [Duoneb 0.5 mg-3 mg/3 ml Soln] 3 ml INHALATION RT-QID each 09/11/22 [Rx] Metoprolol Succinate (ER) [Toprol XL] 25 mg PO DAILY tab 09/11/22 [Rx] Sacubitril/Valsartan [Entresto 24 mg-26 mg Tablet] 1 tab PO BID 10/15/22 [History] Spironolactone [Aldactone] 12.5 mg PO DAILY 30 Days #30 tab 10/17/22 [Rx] predniSONE 50 mg PO DAILY #5 tab 01/09/23 [Rx] Follow up Appointment(s)/Referral(s): Kaden Monsalve MD [STAFF PHYSICIAN] - 1 Week Roxanna Patel MD [STAFF PHYSICIAN] - 1 Week Activity/Diet/Wound Care/Special Instructions: Follow up with Dr. ORESTES Monsalve in 1-2 weeks. reccommend op neurology and ENT Discharge Disposition: HOME SELF-CARE
[2023-11-19 14:51] VITALS: BP 111/69; PULSE 54; RESP 17; TEMP 97.9
--- NOTE | 2023-12-02 08:39 | CT ---
Patient: Rayray Stewart Ordering Physician: Unknown, Unknown ID: [id number] Phone, Pager: Phone: N /A Pager: N/A : 1950 Age/Gender: 73Y, M Primary Location: N/A Procedure: CT brain wo con Stud y Date: 11/11/2023 3:53:31 PM EXAMINATION TYPE: CT brain wo con CT DLP: 1403 mGycm, Automated exposure control for dose reduction was used. DATE OF EXAM: 11/11/2023 4:19 PM COMPARISON: 10/15/2021. CLINICAL INDICATION: Weakness and dizziness TECHNIQUE: Brain: Axial CT images of the brain were obtained with coronal and sagittal reformats created and rev iewed. Contrast used: None. Oral contrast used: None. FINDINGS: Brain: Extra-axial spaces: No abnormal extra-axial fluid collections. Ventricular system: Within normal limits Cerebral parenchyma: No acute intraparenchymal hemorrhage or mass effect. The simpson-white junction is well differentiated. Cerebellum: Unremarkable. Mass effect: No evidence of midline shift. Intracranial vasculature: unremarkable Soft tissues: Normal. Calvarium/osseous structures: No depressed skull fracture. Paranasal sinuses and mastoid air cells: Mild scattered paranasal sinus disease. Visualized orbits: Bilateral aphakia IMPRESSION: No acute intracranial process.
--- NOTE | 2023-12-10 10:39 | CA ---
Transthoracic Echo Report Name: Rayray Stewart Age: 73 Gender: M : 1950 Exam Date: 11/15/2023 14:00 Exam Location: [place] [facility] Ht (in): 74 Wt (lb): 237 Ordering Physician: Attending/Referring Phys: Test Analyst Tete Epps RDCS Procedure CPT: Indications: Chest pain, unspecified Cardiac Hx: Technical Quality: Fair Contrast 1: Definity Total Dose (mL): 2 Contrast 2: Total Dose (mL): MEASUREMENTS (Male / Female) Normal Values 2D ECHO LV Diastolic Diameter PLAX 6.9 cm 4.2 - 5.9 / 3.9 - 5.3 cm LV Systolic Diameter PLAX 5.2 cm IVS Diastolic Thickness 1.1 cm 0.6 - 1.0 / 0.6 - 0.9 cm LVPW Diastolic Thickness 1.1 cm 0.6 - 1.0 / 0.6 - 0.9 cm LV Relative Wall Thickness 0.3 RV Internal Dim ED PLAX 2.2 cm M-MODE Aortic Root Diameter MM 3.9 cm LA Systolic Diameter MM 4.7 cm LA Ao Ratio MM 1.2 AV Cusp Separation MM 2.1 cm DOPPLER AI Peak Velocity 431.7 cm/s AI Peak Gradient 74.6 mmHg AI Pressure Half Time 1177.0 ms MV E' Velocity 3.8 cm/s TR Peak Velocity 206.8 cm/s TR Peak Gradient 17.1 mmHg Right Ventricular Systolic Press 22.4 mmHg FINDINGS Left Ventricle Left ventricular ejection fraction is estimated at 30-35 %. Moderately increased left ventricular diastolic diameter. Severely reduced global left ventricular systolic function. Mildly increased left ventricular wall thickness. Global hypokinesis, more noted in the inferior and lateral wall Right Ventricle Mild right ventricular dilatation. Right ventricular systolic pressure within normal limits. Right Atrium Mild right atrial dilatation. Catheter/pacemaker wire in the right atrial cavity. Left Atrium Severe left atrial dilatation. Mitral Valve Structurally normal mitral valve. Mild mitral regurgitation. No mitral stenosis. Aortic Valve Trileaflet aortic valve. Mild aortic regurgitation. No aortic stenosis. Tricuspid Valve Structurally normal tricuspid valve. Mild tricuspid regurgitation. No tricuspid stenosis. Pulmonic Valve Structurally normal pulmonic valve. Mild pulmonic regurgitation. No pulmonic stenosis. Pericardium No pericardial or pleural effusion. Aorta Mild aortic dilatation at the level of the sinuses of valsalva (root). CONCLUSIONS 1. Severely impaired left ventricular systolic function with segmental wall motion abnormality 2. Mild mitral and tricuspid regurgitation 3. Mild aortic regurgitation Previewed by: Dr. Andrew Skinner MD (Electronically Signed) Final Date: 15 November 2023 17:33
--- NOTE | 2023-12-10 11:02 | XR ---
Patient: Rayray Stewart Ordering Physician: Unknown, Unknown ID: [id number] Phone, Pager: Phone: N /A Pager: N/A : 1950 Age/Gender: 73Y, M Primary Location: N/A Procedure: XR CHEST 2V EXAMINATION TYPE: XR chest 2V DATE OF EXAM: 11/11/2023 6:40 PM CLINICAL INDICATION: Dizziness, shortness of breath COMPARISON: 07/19/2023 TECHNIQUE: XR chest 2V Frontal view of the chest. FINDINGS: Lungs/Pleura: Low lung volumes are present. There is no evidence of pleural effusion, focal consolida tion, or pneumothorax. Pulmonary vascularity: Unremarkable. Heart/mediastinum: Cardiomediastinal silhouette is enlarged. Musculoskeletal: No acute osseous pathology. IMPRESSION: Low lung volumes with a generalized hazy appearance which could represent atelectasis versus pulmonar y edema correlate with serum BNP.
--- NOTE | 2023-12-11 15:22 | US ---
Rayray Stewart ID: [id number] : 1950 EXAMINATION TYPE: US carotid duplex BILAT DATE OF EXAM: 11/14/2023 COMPARISON: NONE CLINICAL INDICATION: 73-year-old male with dizziness TECHNIQUE: Carotid duplex ultrasound examination. Indirect Doppler criteria was utilized. FINDINGS: Bracer notes: DIFFICULT EXAMINATION DUE TO DEEP COURSE OF VESSELS AND HIGH BIFURCATION. WALL THICKENING SEEN. RIGHT (cm/s) PROX CCA: 122 MID CCA: 174 DIST CCA: 132 PROX ICA: 68.9 MID ICA: 88.8 DIST ICA: 111 ECA: UNABLE TO VISUALIZE DUE TO HIGH BIFURCATION AND DEEP COURSE OF VESSELS VERT: 88.8 ANTEGRADE FLOW LEFT (cm/s) PROX CCA: 105 MID CCA: 93.3 DIST CCA: 77.9 PROX ICA: 36.2 MID ICA: 87.8 DIST ICA: 99.2 ECA: 40.7 VERT: 67.7 ANTEGRADE IMPRESSION: Exam limitations as above. Unable to exclude a mild or moderate atherosclerotic stenosis within the r ight CCA. No hemodynamically significant internal carotid artery stenosis on either side. Criteria for Assigning % of Stenosis / Diameter reduction (Estimation based on the indirect measurements of the internal carotid artery velocities (ICA PSV). 1. Normal (no stenosis)=ICA PSV < 125 cm/s: ratio < 2.0: ICA EDV<40 cm/s. 2. Less than 50% stenosis=ICA PSV < 125 cm/s: ratio < 2.0: ICA EDV<40 cm/s. 3. 50 to 69% stenosis=ICA PSV of 125 to 230 cm/s: ration 2.0 ? 4.0: ICA EDV 40-100 cm/s. 4. Greater than 70% stenosis to near occlusion= ICA PSV > 230 cm/s: ratio > 4.0: ICA EDV > 100 cm/s. 5. Near occlusion= ICA PSV velocities may be low or undetectable: variable ratio and ICA EDV. 6. Total occlusion=unable to detect flow.
--- NOTE | 2023-12-12 18:18 | CDI ---
Documentation Clarification Form Date: 12/12/2023 05:48:30 PM From: Malinda Matthews Phone: Admit Date: 11/11/2023 09:02:00 PM Patient Name: Rayray Stewart Visit Number: [id number] Discharge Date: 11/19/2023 06:04:00 PM ATTENTION: The Clinical Documentation Specialists (CDI) and [facility] Coding Staff appreciate your assistance in clarifying documentation. Please respond to the clarification below the line at the bottom and electronically sign. The CDI & [facility] Coding staff will review the response and follow-up if needed. Please note: Queries are made part of the Legal Health Record. If you have any questions, please contact the author of this message via ITS. Doctor/Provider: Roxanna Patel Your patient has the documented diagnosis of unspecified CHF [insert date, location]. Additional information regarding the type of CHF is requested. History/Risk Factors: 73yo M, A Fib, HTN, HL, COPD, PPM, GERD, CHF CM, BPH, frequent falling Clinical Indicators: VS/Pulse OX: 95 Echo Results: SeverelyimpairedLV systolic function with segmental wall motionabnormality. MildMR/TR/ AR Chest X Ray: Heart/mediastinum: Cardiomediastinal silhouette isenlarged. Treatment: The patient was seen and evaluated. Labs and medications reviewed. Stable for discharge from the pulmonary standpoint. Neurology and cardiology following. Continue his home Trelegy, albuterol. FuwithDr. Abarca our office in 1 week In your professional opinion, can you please clarify the [acuity and type] of CHF if known? [ ] Chronic Systolic Heart Failure (reduced EF) [ ] Chronic Diastolic Heart Failure (preserved EF) [ ] Chronic Systolic & Diastolic Heart Failure [ ] Other, please specify [ ] Unable to determine (Template Last Revised: April 2020) MTDD
--- NOTE | 2023-12-16 11:08 | CDI ---
Documentation Clarification Form Date: 12/16/2023 10:43:55 AM From: Malinda Matthews Phone: Admit Date: 11/11/2023 09:02:00 PM Patient Name: Rayray Stewart Visit Number: [id number] Discharge Date: 11/19/2023 06:04:00 PM ATTENTION: The Clinical Documentation Specialists (CDI) and [facility] Coding Staff appreciate your assistance in clarifying documentation. Please respond to the clarification below the line at the bottom and electronically sign. The CDI & [facility] Coding staff will review the response and follow-up if needed. Please note: Queries are made part of the Legal Health Record. If you have any questions, please contact the author of this message via ITS. Doctor/Provider: Roxanna Patel The patients principal diagnosis the diagnosis that was chiefly responsible for the admission - has not been clearly identified and clarification is requested. The patient presented with the following dizziness, shortness of breath, COPD History/Risk factors: 73yo M, dizziness, shortness of breath, AECOPD, HTN, A Fib, CHF w CM, GERD, BPH, nightly O2 use, remote Hx smoking Lab findings: Radiology findings: Low lung volumes with a generalized hazy appearance which could represent atelectasisversuspulmonary edemacorrelate with serum BNP. Vital Signs: 11/10 T 98.1 BP 123/107 HR 65 RR 16 PO 99 RA 11/12 T 97.3 BP 110/75 NJ 50 Sat 97 11/13 T 98.3 BP 115/71 HR72 RR 17 99.1 on RA Treatment: Singulair 11/11 X 1, 11/16 - 11/18 Albuterol Nebulized qid prn, 11/16 11/18 Ipratropium Nebulized inhalation qid Cardiology Consult: Lightheaded, AECOPD, resume on Entresto 24-26mg BID and Toprol 25mg PO daily; Pt home meds. OK for DC. F/U Dr Monsalve in 1-2wks. Neuro Consult: Dizziness/LH about 6mo, getting worse; nonspecific has some Orth component, some vestibular component and some CP reasons (coughing, chest pain) In your professional opinion, can you please clarify which diagnosis, after study, was the reason chiefly responsible for the admission? [ x ] Acute Exacerbation of COPD [ ] Dizziness due to (if known) [ ] Other, please specify [ ] Unable to determine (Template Last Revised: May 2020) MTDD
--- NOTE | 2024-01-03 18:07 | CT ---
ADDENDUM - Added Narayan Goins MD on 11/16/2023 2:43 AM (-04:00) EXAM: CT Head Without Intravenous Contrast CLINICAL HISTORY: quintero, dizziness, r/o stenosis, iso 370, 65 ml TECHNIQUE: Axial computed tomographic images of the head without intravenous contrast. CTDI is 48.8 mGyand DLP is 2025.5 mGy-cm. This CT exam was performed using one or more of the following dose reduction techniques: automated exposure control, adjustment of the mA and/or kV according to patient size, and/or use of iterative reconstruction technique. COMPARISON: No relevant prior studies available. FINDINGS: Brain:No hemorrhage, herniation, or mass effect. Chronic microvascular ischemic changes. Ventricles:No hydrocephalus. Age related cerebral volume loss. Bones/joints:Unremarkable. Soft tissues:Unremarkable. Sinuses:No air fluid levels. Mastoid air cells:Clear. IMPRESSION: No acute hemorrhage, hydrocephalus, or mass effect. EXAM: CT Angiography Head With Intravenous Contrast CLINICAL HISTORY: quintero, dizziness, r/o stenosis, iso 370, 65 ml TECHNIQUE: Axial computed tomographic angiography images of the head with intravenous contrast. CTDI is 48.8 mGy and DLP is 2025.5 mGy-cm. This CT exam was performed using one or more of the following dose reduction techniques: automated exposure control, adjustment of the mA and/or kV according to patient size, and/or use of iterative reconstruction technique. MIP reconstructed images were created and reviewed. COMPARISON: No relevant prior studies available. FINDINGS: Right internal carotid artery:No significant stenosis. No aneurysm. Right anterior cerebral artery:No significant stenosis. No aneurysm. Right middle cerebral artery:No significant stenosis. No aneurysm. Right posterior cerebral artery:No significant stenosis. No aneurysm. Right vertebral artery:Unremarkable. Left internal carotid artery:No significant stenosis. No aneurysm. Left anterior cerebral artery:No significant stenosis. No aneurysm. Left middle cerebral artery:No significant stenosis. No aneurysm. Left posterior cerebral artery:No significant stenosis. No aneurysm. Left vertebral artery:Unremarkable. Basilar artery:No significant stenosis. No aneurysm. IMPRESSION: No significant stenosis. EXAM: CT Angiography Neck With Intravenous Contrast CLINICAL HISTORY: quintero, dizziness, r/o stenosis, iso 370, 65 ml TECHNIQUE: Routine carotid CT angiography protocol was performed with intravenous contrast. NASCET criteria using the distal ICAs for comparison were used for evaluation of stenoses. CTDI is 48.8 mGy and DLP is 2025.5 mGy-cm. This CT exam was performed using one or more of the following dose reduction techniques: automated exposure control, adjustment of the mA and/or kV according to patient size, and/or use of iterative reconstruction technique. MIP reconstructed images were created and reviewed. COMPARISON: None. FINDINGS: VASCULATURE: Right common carotid artery:No significant stenosis. No dissection. Right internal carotid artery:No significant stenosis. No dissection. Right vertebral artery:No significant stenosis. No dissection. Left common carotid artery:No significant stenosis. No dissection. Left internal carotid artery:No significant stenosis. No dissection. Left vertebral artery:No significant stenosis. No dissection. NECK: Lung apices:Clear. CAROTID STENOSIS REFERENCE USING NASCET CRITERIA: %ICA stenosis = (1 - narrowest ICA diameter/diameter of distal cervical ICA) x 100. Mild - <50%stenosis. Moderate - 50-69%stenosis. Severe - 70-94%stenosis. Near occlusion - 95-99%stenosis. Occluded - 100%stenosis. IMPRESSION: No significant stenosis. Radiologist: Cheo Goins MD Electronically Signed: 11/16/23 02:43 Study first marked ready to read at 23:59, study last marked ready to read at 23:59, initial results transmitted at 515 VZMD
== END 2023-11-19 17:09 | disposition home or self-care (01) ==
LOC: INTOOBSV 21:02 → 6NMEDSUR 21:02 → UNDODISIN 11-19 18:04
PROVIDERS: ADMIT Internal Medicine; ATTEND Internal Medicine
DX: R42 Dizziness and giddiness (principal); J44.1 Chronic obstructive pulmonary disease with (acute) exacerbation; R29.6 Repeated falls; E11.9 Type 2 diabetes mellitus without complications; I11.0 Hypertensive heart disease with heart failure; I50.22 Chronic systolic (congestive) heart failure; I48.0 Paroxysmal atrial fibrillation; K21.9 Gastro-esophageal reflux disease without esophagitis; E78.5 Hyperlipidemia, unspecified; I25.10 Atherosclerotic heart disease of native coronary artery without angina pectoris; I25.5 Ischemic cardiomyopathy; N40.0 Benign prostatic hyperplasia without lower urinary tract symptoms; Z87.891 Personal history of nicotine dependence; Z95.5 Presence of coronary angioplasty implant and graft; Z95.810 Presence of automatic (implantable) cardiac defibrillator; Z79.01 Long term (current) use of anticoagulants; Z79.899 Other long term (current) drug therapy
CPT/HCPCS: 96374; 96375; 99285; 94640 ×10; 93306; 97530 ×3; 97161; 80053 ×2; 85652; 82607 ×2; 82746 ×2; 85025; 85027; 86140; 83036; 71046; 93880; 70496; 70450 ×2; 70498; G0378 ×9; Q9967

== ENCOUNTER 2023-12-15 19:37 | Emergency (ER) | payer MEDICARE, OTHER ==
--- NOTE | 2023-12-15 20:27 | ED ---
Chest Pain HPI - General Chief Complaint: Chest Pain Stated Complaint: CP Time Seen by Provider: 12/15/23 19:40 Source: patient, RN notes reviewed Mode of arrival: EMS Limitations: no limitations - History of Present Illness Initial Comments: This is a 73-year-old male who presents to the emergency department for chest pain and shortness of breath. States that it started 2 days ago. The cough is productive with green sputum production. Also feels short of breath. Chest pain is described as being on the far left side by the rib cage. States that this is sharp and stabbing in nature. Pain is worse with coughing and breathing. He does have a substantial cardiac history and states that this feels very different than cardiac pains. He has been around people with COVID, but has been trying to avoid coming into close contact with them. MD Complaint: chest pain - Related Data Home Medications Medication Instructions Recorded Confirmed RX: Mirtazapine 45 mg PO HS 04/01/14 10/15/22 RX: QUEtiapine [SEROquel] 200 mg PO BID 04/01/14 10/15/22 RX: Montelukast [Singulair] 10 mg PO HS 07/20/14 10/15/22 RX: Apixaban [Eliquis] 5 mg PO BID 06/02/20 10/15/22 RX: Atorvastatin [Lipitor] 20 mg PO DAILY 06/02/20 10/15/22 RX: Nitroglycerin Sl Tabs 0.4 mg SL Q5M PRN 06/06/20 10/15/22 [Nitrostat] RX: Albuterol Inhaler [Ventolin 2 puff INHALATION RT-QID PRN 05/29/21 10/15/22 Hfa Inhaler] RX: Fluticasone Nasal [place] 1 spr EA NOSTRIL DAILY 06/16/21 10/15/22 [Flonase Nasal [place]] RX: Multivitamins, Thera 1 tab PO DAILY 05/31/22 10/15/22 [Multivitamin (formulary)] RX: Pantoprazole [Protonix] 40 mg PO DAILY 05/31/22 10/15/22 RX: Ergocalciferol (Vitamin D2) 1,250 mcg PO TH 09/03/22 10/15/22 [Drisdol (50,000 Iu)] RX: Fluticasone/Umeclidin/Vilanter 1 puff INHALATION RT-DAILY 09/03/22 10/15/22 [Trelegy Ellipta 100-62.5-25] RX: Sacubitril/Valsartan [Entresto 1 tab PO BID 10/15/22 10/15/22 24 mg-26 mg Tablet] Previous Rx's Medication Instructions Recorded RX: Aspirin 81 mg PO DAILY tab 10/27/21 RX: Furosemide [Lasix] 20 mg PO DAILY tab 10/27/21 RX: Tamsulosin [Flomax] 0.4 mg PO BID cap 10/27/21 RX: Dapagliflozin Propanediol 10 mg PO DAILY tab 09/11/22 [Farxiga] RX: Ipratropium-Albuterol Nebulize 3 ml INHALATION RT-QID each 09/11/22 [Duoneb 0.5 mg-3 mg/3 ml Soln] RX: Metoprolol Succinate (ER) 25 mg PO DAILY tab 09/11/22 [Toprol XL] RX: Spironolactone [Aldactone] 12.5 mg PO DAILY 30 Days #30 tab 10/17/22 RX: predniSONE 50 mg PO DAILY #5 tab 01/09/23 Benzonatate [Tessalon Perle] 200 mg PO TID PRN #30 capsule 12/15/23 RX: Azithromycin [Zithromax] 250 mg PO DIRECTED 5 Days #6 tab 12/15/23 RX: Lidocaine 5% Patch [Lidoderm 1 patch TOPICAL DAILY PRN #30 patch 12/15/23 5% Patch] RX: predniSONE 50 mg PO DAILY 5 Days #5 tab 12/15/23 Allergies Allergy/AdvReac Type Severity Reaction Status Date / Time Barbiturates Allergy Anaphylaxis Verified 12/15/23 19:46 doxepin Allergy Anaphylaxis Verified 12/15/23 19:46 Latex, Natural Rubber Allergy Unknown Verified 12/15/23 19:46 levofloxacin [From Levaquin] Allergy Dyspnea & Verified 12/15/23 19:46 Leg Swelling and Pain & Headache Review of Systems ROS Statement: Those systems with pertinent positive or pertinent negative responses have been documented in the HPI. ROS Other: All systems not noted in ROS Statement are negative. 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 Stovall, gout bilateral feet, occasional numbness L leg/L great toe, diverticulitis/diverticulosis hx of PHIL with CPAP but no longer an issue since wt. 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 History of Any Multi-Drug Resistant Organisms: None Reported Past Surgical History: AICD, Cholecystectomy, Heart Catheterization, Heart Catheterization With Stent, Hernia Repair, Pacemaker, Tonsillectomy Additional Past Surgical History / Comment(s): 07/24/14 EGD/colonoscopy with polypectomy/bx, 2005 AICD/2014 AICD changed to medtronic, 2002 Cardiac stent in [place], 2007 cardiac cath [facility], upper teeth extracted for denture, L ear has tube, R ear plugged, cyst removed L eyelid, bilateral cataract removal, L ganglion cyst removal, L/R inguinal hernia repairs with mesh, penile implant. Past Anesthesia/Blood Transfusion Reactions: No Reported Reaction Date of Last Stent Placement:: 2002 Type of Cardiac Device: AICD Device Placement Date:: 2014 Past Psychological History: Anxiety, Depression Smoking Status: Former smoker Past Alcohol Use History: None Reported Past Drug Use History: None Reported - Past Family History Father Family Medical History: Coronary Artery Disease (CAD), Pneumonia Additional Family Medical History / Comment(s): Father of pneumonia at the age of 82 yrs. Mother Family Medical History: Liver Disease, Renal Disease Additional Family Medical History / Comment(s): father passed after a bout with pneumonia General Exam Limitations: no limitations General appearance: alert, in no apparent distress Head exam: Present: atraumatic, normocephalic, normal inspection Respiratory exam: Present: decreased breath sounds, prolonged expiratory. Absent: respiratory distress, wheezes, rales, rhonchi, stridor Cardiovascular Exam: Present: regular rate, normal rhythm, normal heart sounds. Absent: systolic murmur, diastolic murmur, rubs, gallop, clicks Neurological exam: Present: alert, oriented X3, CN II-XII intact Psychiatric exam: Present: normal affect, normal mood Skin exam: Present: warm, dry, intact, normal color. Absent: rash Course Vital Signs 12/15/23 12/15/23 12/15/23 19:39 21:28 21:40 Temperature 98.9 F Pulse Rate 81 65 81 Respiratory 20 Rate Blood Pressure 149/91 O2 Sat by Pulse 97 Oximetry 12/15/23 22:42 Temperature 98.3 F Pulse Rate 64 Respiratory 18 Rate Blood Pressure 138/78 O2 Sat by Pulse 95 Oximetry Chest Pain MDM - MDM This is a 73-year-old male who presents to the emergency department for chest pain and shortness of breath. Was pt. sent in by a medical professional or institution? @ -No Did you speak to anyone other than the patient for history? @ -No Did you review nursing and triage notes? @ -Yes, and I agree, it is accurate with regards to the patient's symptoms. Were old charts reviewed? @ -No Differential Diagnosis? @ -Differential Chest Pain: Stable Angina, Unstable Angina, STEMI, NSTEMI Aortic Dissection, Pneumothorax, Musculoskeletal, Esophageal Spasm GERD, Cholecystitis, Pancreatitis, Zoster, this is not meant to be an all-inclusive list. EKG interpreted by me (3pts min.)? @ -EKG interpreted by me demonstrating the following: Sinus rhythm with occasional PVCs. Ventricular rate 81 bpm, DC interval 175 ms, QRS duration 124 ms, QTc 395 ms. X-rays interpreted by me (1pt min.)? @ -Chest x-ray obtained. My interpretation identifies a possible retrocardiac infiltrate. CT interpreted by me (1pt min.)? @ -Not obtained U/S interpreted by me (1pt. min.)? @ -Not obtained What testing was considered but not performed? (CT, X-rays, U/S, labs)? Why? @ -None What meds were considered but not given? Why? @ -None Did you discuss the management of the patient with other professionals? @ -No Did you reconcile home meds? @ -No Was smoking cessation discussed for >3mins.? @ -I discussed smoking cessation for greater than 3 minutes. The risk of smoking were discussed with the patient including but not limited to risks of cancer, stroke, coronary artery disease and COPD. Also discussed with patient were multiple methods of quitting smoking. Lastly we discussed the financial cost of smoking. Was critical care preformed (if so, how long)? @ -No Were there social determinants of health that impacted care today? How? (Homelessness, low income, unemployed, alcoholism, drug addiction, transportation, low edu. Level, literacy, decrease access to med. care, mcc, rehab)? @ -No Was there de-escalation of care discussed even if they declined? (Discuss DNR or withdrawal of care, Hospice)? @ -No What co-morbidities impacted this encounter? (DM, HTN, Smoking, COPD, CAD, Cancer, CVA, Hep., AIDS, mental health diagnosis, sleep apnea, morbid obesity)? @ -CAD, COPD, smoking Was patient admitted / discharged? @ -Discharged. Lab work unremarkable. Troponin and D-dimer negative. COVID, influenza, and RSV testing negative. Urinalysis negative for signs of infection. Chest x-ray demonstrates a possible mild retrocardiac infiltrate and they advised clinical correlation for lower lobe atelectasis or pneumonia. Findings reviewed with the patient. Symptoms well-controlled in the emergency department. He was comfortable with discharge home and outpatient management. 2 g of Rocephin and 500 mg of azithromycin administered in the emergency department. Prescription for azithromycin, prednisone, Tessalon Perles, and lidocaine patches provided. Advised follow-up with his PCP in the next couple of days and he was given very strict return parameters. Case discussed with ED attending Dr. Hawthorne. Return precautions reviewed in depth, the patient is instructed to return to the emergency department with any new, worsening, or concerning symptoms. Patient verbalized understanding. Undiagnosed new problem with uncertain prognosis? @ -None Drug Therapy requiring intensive monitoring for toxicity (Heparin, Nitro, Insulin, Cardizem)? @ -None Were any procedures done? @ -None Diagnosis/symptom? @ -Pneumonia Acute, or Chronic, or Acute on Chronic? @ -Acute Uncomplicated (without systemic symptoms) or Complicated (systemic symptoms)? @ -Uncomplicated Side effects of treatment? @ -None Exacerbation, Progression, or Severe Exacerbation] @ -Not applicable Poses a threat to life or bodily function? @ -No Disposition Clinical Impression: Pneumonia, Nicotine dependence Disposition: HOME SELF-CARE Instructions (If sedation given, give patient instructions): Pneumonia (ED) Additional Instructions: Return to the emergency department with any new, worsening, or concerning symptoms. Take the antibiotic as prescribed for 5 days. Take the steroid daily for 5 days. You can take the Tessalon Perles up to every 8 hours as needed for coughing. You can also take other [id number] cough medications such as Mucinex. You can apply the lidocaine patches daily to the chest to help with pain. You can use your nebulizer treatments every 4-6 hours as needed. Continue to use your inhalers as well. Take Tylenol as needed for pain relief. Follow up with your primary care provider in 1-2 days. Prescriptions: RX: Lidocaine 5% Patch [Lidoderm 5% Patch] 1 patch TOPICAL DAILY PRN #30 patch PRN Reason: Pain RX: predniSONE 50 mg PO DAILY 5 Days #5 tab Benzonatate [Tessalon Perle] 200 mg PO TID PRN #30 capsule PRN Reason: Cough RX: Azithromycin [Zithromax] 250 mg PO DIRECTED 5 Days #6 tab Is patient prescribed a controlled substance at d/c from ED?: No Referrals: Roxanna Patel MD [Primary Care Provider] - 1-2 days Time of Disposition: 22:28
[2023-12-15 20:39] LABS: Basophils % (A) 1 %; Eosinophils # (A) 0.1 k/uL (0-0.7); Eosinophils % (A) 2 %; HCT 40.8 % (39.0-53.0); Hypochromasia Slight; Lymphocytes % (A) 30 %; MCH 26.9 pg (25.0-35.0); MCHC 31.9 g/dL (31.0-37.0); MCV 84.5 fL (80.0-100.0); Mean Platelet Volume 8.2; Monocytes # (A) 0.7 k/uL (0-1.0); Monocytes % (A) 11 %; Neutrophils # (A) 3.8 k/uL (1.3-7.7); Neutrophils % (A) 56 %; Platelet Count 295 k/uL (150-450); RBC 4.83 m/uL (4.30-5.90); RDW 15.7 % (11.5-15.5); WBC 6.8 k/uL (3.8-10.6)
--- NOTE | 2023-12-15 20:45 | XR ---
EXAMINATION TYPE: XR chest 2V DATE OF EXAM: 12/15/2023 COMPARISON: 11/11/2023 INDICATION: Short of breath productive cough TECHNIQUE: Frontal and lateral views of the chest are obtained. FINDINGS: The heart size is enlarged. Pacemaker overlies left chest. The pulmonary vasculature is normal. Mild retrocardiac infiltrate may be present.. IMPRESSION: 1. Clinical correlation recommended for lower lobe atelectasis or pneumonia. 2. [facility], Workstation: [facility], 12/15/2023 8:43 PM
[2023-12-15] MEDS: MORPHINE SULFATE 4 MG/ML SYRINGE IVP STA (20:47)
[2023-12-15] MEDS: LIDOCAINE 4% PATCH TOPICAL ONE (20:47)
[2023-12-15 20:52] LABS: INR 0.9 (<1.2); Partial Thromboplastin Time 24.9 sec (22.0-30.0); Prothrombin Time 9.8 sec (10.0-12.5)
[2023-12-15 20:55] LABS: ALT 28 U/L (4-49); AST 31 U/L (17-59); African American GFR (CKD) 77 (>60 ml/min/1.73 sqM); Albumin 3.7 g/dL (3.5-5.0); Alkaline Phosphatase 91 U/L (38-126); Amylase 100 U/L (30-110); Anion Gap 7 mmol/L; Blood Urea Nitrogen 9 mg/dL (9-20); Calcium 8.9 mg/dL (8.4-10.2); Carbon Dioxide 23 mmol/L (22-30); Chloride 106 mmol/L (98-107); Glucose 99 mg/dL (74-99); Lipase 117 U/L (23-300); Magnesium 1.8 mg/dL (1.6-2.3); Non-African American GFR(CKD) 66 (>60 ml/min/1.73 sqM); Potassium 3.5 mmol/L (3.5-5.1); Sodium 136 mmol/L (137-145); Total Bilirubin 0.4 mg/dL (0.2-1.3); Total Protein 6.2 g/dL (6.3-8.2)
[2023-12-15 21:03] LABS: NT-Pro-B-Type Natriuretic Pept 161 pg/mL
[2023-12-15] MEDS: guaiFENesin-Coden 100-10MG/5ML 10 ML CUP PO STA (21:25)
[2023-12-15] MEDS: AZITHROMYCIN 500 MG TAB PO STA (21:26)
[2023-12-15] MEDS: IPRATROPIUM-ALBUTEROL 3 ML NEB INHALATION STA (21:28)
[2023-12-15] MEDS: DEXAMETHASONE SOD PHOSPHATE 10 MG/ML 1 ML VIAL IVP STA (21:30)
[2023-12-15] MEDS: BENZONATATE 100 MG CAP PO STA (21:49)
[2023-12-15] MEDS: cefTRIAXone IN SWFI 1,000 MG/10 ML SYRINGE IVP STA ×2 (21:49)
[2023-12-15 22:19] LABS: Appearance,Urine Clear (Clear); Bilirubin,Urine Negative (Negative); Blood,Urine Negative (Negative); Color,Urine Colorless; Glucose,Urine (UA) 4+ (Negative); Ketones,Urine Negative (Negative); Leukocyte Esterase,Urine Negative (Negative); Nitrite,Urine Negative (Negative); PH, Urine 5.5 (5.0-8.0); Protein,Urine Negative (Negative); Specific Gravity,Urine 1.009 (1.001-1.035); Urobilinogen,Urine <2.0 mg/dL (<2.0)
[2023-12-15] MEDS: ACET/COD 300 MG/30 MG STARTER PACK 6 TAB BTL PO STA (22:39)
[2023-12-15 22:45] VITALS: BP 138/78; PULSE 64; RESP 18; TEMP 98.3
== END 2023-12-15 23:07 | disposition home or self-care (01) ==
LOC: EC 19:37
DX: J18.9 Pneumonia, unspecified organism (principal)
CPT/HCPCS: 36415; 71046; 80053; 81003; 82150; 83605; 83690; 83735; 83880; 84484; 85025; 85379; 85610; 85730; 87636; 93005; 94640; 96374; 96375; 99285

== ENCOUNTER 2024-01-09 21:44 | Emergency (ER) | payer OTHER ==
[2024-01-09 22:04] VITALS: RESP 18; TEMP 97.9
--- NOTE | 2024-01-09 22:33 | XR ---
EXAMINATION TYPE: XR knee complete RT DATE OF EXAM: 01/09/2024 CLINICAL HISTORY: Pain. Injury today. TECHNIQUE: Three views of the right knee are obtained. COMPARISON: None. FINDINGS: Meniscal calcifications are seen raising concern for underlying chondrocalcinosis. There is no acute fracture/dislocation evident in the right knee. [id number] tricompartment joint space loss. Prominent soft tissue suprapatellar bursa suspicious for large joint effusion. IMPRESSION: As above. [facility], , 01/09/2024 10:30 PM
--- NOTE | 2024-01-09 22:58 | ED ---
Lower Extremity Injury HPI - General Chief Complaint: Extremity Injury, Lower Stated Complaint: Leg Pain Time Seen by Provider: 01/09/24 22:44 Source: patient Mode of arrival: EMS - History of Present Illness Initial Comments: 73-year-old male presenting with chief complaint of right knee pain. Patient states that a few days ago he slipped and fell onto the right knee. Since then he has had increased pain and swelling. He has been utilizing a walker. He saw his PCP and he set him up with an appointment with orthopedics,, however this is not until later in the month. Patient has not been taking anything at home for pain. - Related Data Home Medications Medication Instructions Recorded Confirmed Mirtazapine 45 mg PO HS 04/01/14 10/15/22 QUEtiapine [SEROquel] 200 mg PO BID 04/01/14 10/15/22 Montelukast [Singulair] 10 mg PO HS 07/20/14 10/15/22 Apixaban [Eliquis] 5 mg PO BID 06/02/20 10/15/22 Atorvastatin [Lipitor] 20 mg PO DAILY 06/02/20 10/15/22 Nitroglycerin Sl Tabs [Nitrostat] 0.4 mg SL Q5M PRN 06/06/20 10/15/22 Albuterol Inhaler [Ventolin Hfa 2 puff INHALATION RT-QID PRN 05/29/21 10/15/22 Inhaler] Fluticasone Nasal [place] [Flonase 1 spr EA NOSTRIL DAILY 06/16/21 10/15/22 Nasal [place]] Multivitamins, Thera [Multivitamin 1 tab PO DAILY 05/31/22 10/15/22 (formulary)] Pantoprazole [Protonix] 40 mg PO DAILY 05/31/22 10/15/22 Ergocalciferol (Vitamin D2) 1,250 mcg PO TH 09/03/22 10/15/22 [Drisdol (50,000 Iu)] Fluticasone/Umeclidin/Vilanter 1 puff INHALATION RT-DAILY 09/03/22 10/15/22 [Trelegy Ellipta 100-62.5-25] Sacubitril/Valsartan [Entresto 24 1 tab PO BID 10/15/22 10/15/22 mg-26 mg Tablet] Previous Rx's Medication Instructions Recorded Aspirin 81 mg PO DAILY tab 10/27/21 Furosemide [Lasix] 20 mg PO DAILY tab 10/27/21 Tamsulosin [Flomax] 0.4 mg PO BID cap 10/27/21 Dapagliflozin Propanediol [Farxiga] 10 mg PO DAILY tab 09/11/22 Ipratropium-Albuterol Nebulize 3 ml INHALATION RT-QID each 09/11/22 [Duoneb 0.5 mg-3 mg/3 ml Soln] Metoprolol Succinate (ER) [Toprol 25 mg PO DAILY tab 09/11/22 XL] Spironolactone [Aldactone] 12.5 mg PO DAILY 30 Days #30 tab 10/17/22 predniSONE 50 mg PO DAILY #5 tab 01/09/23 Azithromycin [Zithromax] 250 mg PO DIRECTED 5 Days #6 tab 12/15/23 Benzonatate [Tessalon [place]] 200 mg PO TID PRN #30 capsule 12/15/23 Lidocaine 5% Patch [Lidoderm 5% 1 patch TOPICAL DAILY PRN #30 patch 12/15/23 Patch] predniSONE 50 mg PO DAILY 5 Days #5 tab 12/15/23 HYDROcodone/APAP 7.5-325MG [[place] 1 tab PO Q6HR PRN 3 Days #12 tab 01/09/24 7.5-325] Allergies Allergy/AdvReac Type Severity Reaction Status Date / Time Barbiturates Allergy Anaphylaxis Verified 01/09/24 22:04 doxepin Allergy Anaphylaxis Verified 01/09/24 22:04 Latex, Natural Rubber Allergy Unknown Verified 01/09/24 22:04 levofloxacin [From Levaquin] Allergy Dyspnea & Verified 01/09/24 22:04 Leg Swelling and Pain & Headache Review of Systems ROS Statement: Those systems with pertinent positive or pertinent negative responses have been documented in the HPI. ROS Other: All systems not noted in ROS Statement are negative. 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 Stovall, gout bilateral feet, occasional numbness L leg/L great toe, diverticulitis/diverticulosis hx of PHIL with CPAP but no longer an issue since wt. 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 History of Any Multi-Drug Resistant Organisms: None Reported Past Surgical History: AICD, Cholecystectomy, Heart Catheterization, Heart Catheterization With Stent, Hernia Repair, Pacemaker, Tonsillectomy Additional Past Surgical History / Comment(s): 07/24/14 EGD/colonoscopy with polypectomy/bx, 2005 AICD/2014 AICD changed to medtronic, 2002 Cardiac stent in [place], 2007 cardiac cath [facility], upper teeth extracted for denture, L ear has tube, R ear plugged, cyst removed L eyelid, bilateral cataract removal, L ganglion cyst removal, L/R inguinal hernia repairs with mesh, penile implant. Past Anesthesia/Blood Transfusion Reactions: No Reported Reaction Date of Last Stent Placement:: 2002 Type of Cardiac Device: AICD Device Placement Date:: 2014 Past Psychological History: Anxiety, Depression Smoking Status: Former smoker Past Alcohol Use History: None Reported Past Drug Use History: None Reported - Past Family History Father Family Medical History: Coronary Artery Disease (CAD), Pneumonia Additional Family Medical History / Comment(s): Father of pneumonia at the age of 82 yrs. Mother Family Medical History: Liver Disease, Renal Disease Additional Family Medical History / Comment(s): father passed after a bout with pneumonia General Exam General appearance: alert, in no apparent distress Head exam: Present: atraumatic, normocephalic Eye exam: Present: normal appearance, EOMI Neck exam: Present: normal inspection. Absent: meningismus Respiratory exam: Absent: respiratory distress Right Knee exam: Present: full ROM, tenderness, swelling Neurological exam: Present: alert, oriented X3 Psychiatric exam: Present: normal affect, normal mood Skin exam: Present: warm, dry Course Vital Signs 01/09/24 01/09/24 21:58 23:24 Temperature 97.9 F 97.9 F Pulse Rate 58 L 75 Respiratory 18 18 Rate Blood Pressure 125/66 138/76 O2 Sat by Pulse 96 97 Oximetry Medical Decision Making - Medical Decision Making Was pt. sent in by a medical professional or institution (SAADIA Wilkerson, [employer]K [employer], urgent care, hospital, or fci...) When possible be specific @ -No Did you speak to anyone other than the patient for history (EMS, parent, family, police, friend...)? What history was obtained from this source @ -No Did you review nursing and triage notes (agree or disagree)? Why? @ -I reviewed and agree with nursing and triage notes Were old charts reviewed (outside hosp., previous admission, EMS record, old EKG, old radiological studies, urgent care reports/EKG's, fci records)? Report findings @ -No old charts were reviewed Differential Diagnosis (chest pain, altered mental status, abdominal pain women, abdominal pain men, vaginal bleeding, weakness, fever, dyspnea, syncope, headache, dizziness, GI bleed, back pain, seizure, CVA, palpatations, mental health, musculoskeletal)? @ -Differential Musculoskeletal Muscular strain, contusion, ligament sprain, fracture, arthritis, septic arthritis, bursitis, cellulitis, muscle spasm, nerve compression, DVT, arterial occlusion, herpes zoster, electrolyte abnormality, tumor.... This is not meant to be in all inclusive list EKG interpreted by me (3pts min.). @ -As above X-rays interpreted by me (1pt min.). @ -X-ray shows meniscal calcifications are seen raising concern for underlying chondrocalcinosis. There is no acute fracture/dislocation evident in the right knee. Mild to moderate tricompartment joint space loss. Prominent soft tissue suprapatellar bursa suspicious for large joint effusion. CT interpreted by me (1pt min.). @ -None done U/S interpreted by me (1pt. min.). @ -None done What testing was considered but not performed or refused? (CT, X-rays, U/S, labs)? Why? @ -None What meds were considered but not given or refused? Why? @ -None Did you discuss the management of the patient with other professionals (professionals i.e. SAADIA Wilkerson, MILK DELIVERER, lab, RT, psych nurse, social work msw, mechanic driver, teacher, electronic intelligence officer, case maker)? Give summary @ -No Was smoking cessation discussed for >3mins.? @ -No Was critical care preformed (if so, how long)? @ -No Were there social determinants of health that impacted care today? How? (Homelessness, low income, unemployed, alcoholism, drug addiction, transportation, low edu. Level, literacy, decrease access to med. care, [facility], rehab)? @ -No Was there de-escalation of care discussed even if they declined (Discuss DNR or withdrawal of care, Hospice)? DNR status @ -No What co-morbidities impacted this encounter? (DM, HTN, Smoking, COPD, CAD, Cancer, CVA, ARF, Chemo, Hep., AIDS, mental health diagnosis, sleep apnea, morbid obesity)? @ -None Was patient admitted / discharged? Hospital course, mention meds given and route, prescriptions, significant lab abnormalities, going to OR and other pertinent info. @ -73-year-old male presenting with chief complaint of right knee pain. He had a slip and fall a few days ago, the knee is not significantly tender and swollen. He has been using a walker. On exam large effusion is appreciated. X-rays consistent with degenerative changes and large joint effusion. Patient has a scheduled appointment with orthopedics later this month. He is instructed to continue using his walker was provided with a short course of [place] for breakthrough pain. Educated on supportive management. Treated with 2 mg of morphine IM here in the ER. Discharged. Follow-up with PCP. Report back to ER with any new or worsening symptoms. Discussed return parameters and answered a ll questions. Patient conveyed verbal understanding and agreed to the plan. I discussed this case in detail with my attending Dr. Nino Undiagnosed new problem with uncertain prognosis? @ -No Drug Therapy requiring intensive monitoring for toxicity (Heparin, Nitro, Insulin, Cardizem)? @ -No Were any procedures done? @ -No Diagnosis/symptom? @ -Knee injury Acute, or Chronic, or Acute on Chronic? @ -Acute Uncomplicated (without systemic symptoms) or Complicated (systemic symptoms)? @ -Uncomplicated Side effects of treatment? @ -No Exacerbation, Progression, or Severe Exacerbation? @ -No Poses a threat to life or bodily function? How? (Chest pain, [place], [place], pneumonia, PE, COPD, DKA, ARF, appy, cholecystitis, CVA, Diverticulitis, Homicidal, Suicidal, threat to staff... and all critical care pts) @ -Low likelihood Disposition Clinical Impression: Knee sprain Disposition: HOME SELF-CARE Condition: Good Instructions (If sedation given, give patient instructions): Knee Sprain (ED) Additional Instructions: Follow-up with orthopedics at your scheduled appointment. Report back to ER with any new or worsening symptoms. Rest ice and elevate the knee. Continue to use your walker. Prescriptions: HYDROcodone/APAP 7.5-325MG [[place] 7.5-325] 1 tab PO Q6HR PRN 3 Days #12 tab PRN Reason: Pain Is patient prescribed a controlled substance at d/c from ED?: Yes When asked, does pt state using other controlled substances?: No If prescribed controlled substance>3 days was MAPS reviewed?: Prescribed <3 Days If opioid is for acute pain is fill amount 7 days or less?: Yes Referrals: Roxanna Patel MD [Primary Care Provider] - 1-2 days Time of Disposition: 22:58
[2024-01-09] MEDS: MORPHINE SULFATE 2 MG/ML SYRINGE IM STA (23:02)
[2024-01-09 23:41] VITALS: BP 138/76; PULSE 75
== END 2024-01-09 23:25 | disposition home or self-care (01) ==
LOC: EC 21:44
CPT/HCPCS: 96372; 99283

== ENCOUNTER 2024-01-18 13:09 | Observation (INO) | payer MEDICARE, OTHER ==
--- NOTE | 2024-01-18 13:53 | ED ---
General Adult HPI - General Chief complaint: Extremity Injury, Lower Stated complaint: Knee pain Time Seen by Provider: 01/18/24 13:20 Source: patient, RN notes reviewed Mode of arrival: EMS Limitations: no limitations - History of Present Illness Initial comments: Patient is a 73-year-old male present to the emergency department with concerns with bilateral knee pain. Symptoms have been occurring for the past week on the right knee. Patient saw Dr. Butterfield in the office and had drainage and steroid injection which helped for a couple of days. Discomfort started to worsen again and is moderate at this point. Patient did have x-rays done of both knees at that time. Left knee discomfort started around 4 days ago and is becoming severe. There is mild swelling. Patient was able to walk around 10 feet yesterday. Patient is only able to walk a single step today secondary to discomfort - Related Data Home Medications Medication Instructions Recorded Confirmed Mirtazapine 45 mg PO HS 04/01/14 10/15/22 QUEtiapine [SEROquel] 200 mg PO BID 04/01/14 10/15/22 Montelukast [Singulair] 10 mg PO HS 07/20/14 10/15/22 Apixaban [Eliquis] 5 mg PO BID 06/02/20 10/15/22 Atorvastatin [Lipitor] 20 mg PO DAILY 06/02/20 10/15/22 Nitroglycerin Sl Tabs [Nitrostat] 0.4 mg SL Q5M PRN 06/06/20 10/15/22 Albuterol Inhaler [Ventolin Hfa 2 puff INHALATION RT-QID PRN 05/29/21 10/15/22 Inhaler] Fluticasone Nasal [place] [Flonase 1 spr EA NOSTRIL DAILY 06/16/21 10/15/22 Nasal [place]] Multivitamins, Thera [Multivitamin 1 tab PO DAILY 05/31/22 10/15/22 (formulary)] Pantoprazole [Protonix] 40 mg PO DAILY 05/31/22 10/15/22 Ergocalciferol (Vitamin D2) 1,250 mcg PO TH 09/03/22 10/15/22 [Drisdol (50,000 Iu)] Fluticasone/Umeclidin/Vilanter 1 puff INHALATION RT-DAILY 09/03/22 10/15/22 [Trelegy Ellipta 100-62.5-25] Sacubitril/Valsartan [Entresto 24 1 tab PO BID 10/15/22 10/15/22 mg-26 mg Tablet] Previous Rx's Medication Instructions Recorded Aspirin 81 mg PO DAILY tab 10/27/21 Furosemide [Lasix] 20 mg PO DAILY tab 10/27/21 Tamsulosin [Flomax] 0.4 mg PO BID cap 10/27/21 Dapagliflozin Propanediol [Farxiga] 10 mg PO DAILY tab 09/11/22 Ipratropium-Albuterol Nebulize 3 ml INHALATION RT-QID each 09/11/22 [Duoneb 0.5 mg-3 mg/3 ml Soln] Metoprolol Succinate (ER) [Toprol 25 mg PO DAILY tab 09/11/22 XL] Spironolactone [Aldactone] 12.5 mg PO DAILY 30 Days #30 tab 10/17/22 predniSONE 50 mg PO DAILY #5 tab 01/09/23 Azithromycin [Zithromax] 250 mg PO DIRECTED 5 Days #6 tab 12/15/23 Benzonatate [Tessalon Perle] 200 mg PO TID PRN #30 capsule 12/15/23 Lidocaine 5% Patch [Lidoderm 5% 1 patch TOPICAL DAILY PRN #30 patch 12/15/23 Patch] predniSONE 50 mg PO DAILY 5 Days #5 tab 12/15/23 HYDROcodone/APAP 7.5-325MG [Stewart 1 tab PO Q6HR PRN 3 Days #12 tab 01/09/24 7.5-325] Allergies Allergy/AdvReac Type Severity Reaction Status Date / Time Barbiturates Allergy Anaphylaxis Verified 01/18/24 13:16 doxepin Allergy Anaphylaxis Verified 01/18/24 13:16 Latex, Natural Rubber Allergy Unknown Verified 01/18/24 13:16 levofloxacin [From Levaquin] Allergy Dyspnea & Verified 01/18/24 13:16 Leg Swelling and Pain & Headache Review of Systems ROS Statement: Those systems with pertinent positive or pertinent negative responses have been documented in the HPI. ROS Other: All systems not noted in ROS Statement are negative. 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 Stovall, gout bilateral feet, occasional numbness L leg/L great toe, diverticulitis/diverticulosis hx of PHIL with CPAP but no longer an issue since wt. loss, fluid in ears which causes muffled sounds in L ear- had drain placed i n L ear and R ear plugged so is deaf R ear, migraines, bronchitis, small hiatal hernia. History of Any Multi-Drug Resistant Organisms: None Reported Past Surgical History: AICD, Cholecystectomy, Heart Catheterization, Heart Catheterization With Stent, Hernia Repair, Pacemaker, Tonsillectomy Additional Past Surgical History / Comment(s): 07/24/14 EGD/colonoscopy with polypectomy/bx, 2005 AICD/2014 AICD changed to medtronic, 2002 Cardiac stent in [place], 2007 cardiac cath [facility], upper teeth extracted for denture, L ear has tube, R ear plugged, cyst removed L eyelid, bilateral cataract removal, L ganglion cyst removal, L/R inguinal hernia repairs with mesh, penile implant. Past Anesthesia/Blood Transfusion Reactions: No Reported Reaction Date of Last Stent Placement:: 2002 Type of Cardiac Device: AICD Device Placement Date:: 2014 Past Psychological History: Anxiety, Depression Smoking Status: Former smoker Past Alcohol Use History: None Reported Past Drug Use History: None Reported - Past Family History Father Family Medical History: Coronary Artery Disease (CAD), Pneumonia Additional Family Medical History / Comment(s): Father of pneumonia at the age of 82 yrs. Mother Family Medical History: Liver Disease, Renal Disease Additional Family Medical History / Comment(s): father passed after a bout with pneumonia General Exam Limitations: no limitations General appearance: alert, in no apparent distress Head exam: Present: normocephalic Eye exam: Present: normal appearance Neck exam: Present: normal inspection Respiratory exam: Present: normal lung sounds bilaterally Cardiovascular Exam: Present: regular rate, normal rhythm Expanded Peripheral pulses: 2+: Dorsalis Pedis (R), Dorsalis Pedis (L) GI/Abdominal exam: Present: soft. Absent: tenderness Extremities exam: Present: other (Left greater than right knee with mild swelling and tenderness anterior. Distally the extremities are neurovascular intact). Absent: calf tenderness Neurological exam: Present: alert. Absent: motor sensory deficit Psychiatric exam: Present: normal affect, normal mood Skin exam: Present: normal color. Absent: erythema Course Vital Signs 01/18/24 13:13 Temperature 97.7 F Pulse Rate 84 Respiratory 18 Rate Blood Pressure 150/82 O2 Sat by Pulse 99 Oximetry Medical Decision Making - Medical Decision Making Was pt. sent in by a medical professional or institution (, PA, BILLET ASSEMBLER, urgent care, hospital, or long-term...) When possible be specific @ -No Did you speak to anyone other than the patient for history (EMS, parent, family, police, friend...)? What history was obtained from this source @ -No Did you review nursing and triage notes (agree or disagree)? Why? @ -I reviewed and agree with nursing and triage notes Were old charts reviewed (outside hosp., previous admission, EMS record, old EKG, old radiological studies, urgent care reports/EKG's, long-term records)? Report findings @ -No old charts were reviewed Differential Diagnosis (chest pain, altered mental status, abdominal pain women, abdominal pain men, vaginal bleeding, weakness, fever, dyspnea, syncope, headache, dizziness, GI bleed, back pain, seizure, CVA, palpatations, mental health, musculoskeletal)? @ -Differential Musculoskeletal Muscular strain, contusion, ligament sprain, fracture, arthritis, septic arth ritis, bursitis, cellulitis, muscle spasm, nerve compression, DVT, arterial occlusion, herpes zoster, electrolyte abnormality, tumor.... This is not meant to be in all inclusive list EKG interpreted by me (3pts min.). @ -As above X-rays interpreted by me (1pt min.). @ -None done CT interpreted by me (1pt min.). @ -None done U/S interpreted by me (1pt. min.). @ -None done What testing was considered but not performed or refused? (CT, X-rays, U/S, labs)? Why? @ -Considered imaging and arthrocentesis however this was just done by Dr. Butterfield What meds were considered but not given or refused? Why? @ -None Did you discuss the management of the patient with other professionals (professionals i.e. , PA, BILLET ASSEMBLER, lab, RT, psych nurse, director of social media marketing, transmission rebuilder, teacher, truant officer, case management manager)? Give summary @ -No Was smoking cessation discussed for >3mins.? @ -No Was critical care preformed (if so, how long)? @ -No Were there social determinants of health that impacted care today? How? (Homelessness, low income, unemployed, alcoholism, drug addiction, transportation, low edu. Level, literacy, decrease access to med. care, half-way, rehab)? @ -No Was there de-escalation of care discussed even if they declined (Discuss DNR or withdrawal of care, Hospice)? DNR status @ -No What co-morbidities impacted this encounter? (DM, HTN, Smoking, COPD, CAD, Cancer, CVA, ARF, Chemo, Hep., AIDS, mental health diagnosis, sleep apnea, morbid obesity)? @ -None Was patient admitted / discharged? Hospital course, mention meds given and route, prescriptions, significant lab abnormalities, going to OR and other pertinent info. @ -Patient presents with bilateral knee pain with inability to ambulate. No improvement with medications. Laboratory data at this point unremarkable. Patient will be admitted with orthopedic consult. Admission orders written. Undiagnosed new problem with uncertain prognosis? @ -No Drug Therapy requiring intensive monitoring for toxicity (Heparin, Nitro, Insulin, Cardizem)? @ -No Were any procedures done? @ -No Diagnosis/symptom? @ -Polyarthralgia Acute, or Chronic, or Acute on Chronic? @ -Acute Uncomplicated (without systemic symptoms) or Complicated (systemic symptoms)? @ -Complicated by inability to ambulate Side effects of treatment? @ -No Exacerbation, Progression, or Severe Exacerbation? @ -No Poses a threat to life or bodily function? How? (Chest pain, [place], [place], pneumonia, PE, COPD, DKA, ARF, appy, cholecystitis, CVA, Diverticulitis, Homicidal, Suicidal, threat to staff... and all critical care pts) @ -Risk to ability to ambulate - Lab Data Result diagrams: 01/18/24 14:16 01/18/24 14:16 Lab Results 01/18/24 01/18/24 Range/Units 14:16 14:16 WBC 6.4 (3.8-10.6) k/uL RBC 5.17 (4.30-5.90) m/uL Hgb 13.6 (13.0-17.5) gm/dL Hct 42.7 (39.0-53.0) % MCV 82.6 (80.0-100.0) fL MCH 26.3 (25.0-35.0) pg MCHC 31.9 (31.0-37.0) g/dL RDW 16.5 H (11.5-15.5) % Plt Count 355 (150-450) k/uL MPV 8.4 Neutrophils % 55 % Lymphocytes % 32 % Monocytes % 9 % Eosinophils % 2 % Basophils % 0 % Neutrophils # 3.5 (1.3-7.7) k/uL Lymphocytes # 2.0 (1.0-4.8) k/uL Monocytes # 0.6 (0-1.0) k/uL Eosinophils # 0.1 (0-0.7) k/uL Basophils # 0.0 (0-0.2) k/uL Anisocytosis Slight Sodium 138 (137-145) mmol/L Potassium 4.2 (3.5-5.1) mmol/L Chloride 109 H (98-107) mmol/L Carbon Dioxide 23 (22-30) mmol/L Anion Gap 6 mmol/L BUN 15 (9-20) mg/dL Creatinine 1.06 (0.66-1.25) mg/dL Est GFR (CKD-EPI)AfAm 81 (>60 ml/min/1.73 sqM) Est GFR (CKD-EPI)NonAf 70 (>60 ml/min/1.73 sqM) Glucose 92 (74-99) mg/dL Calcium 9.2 (8.4-10.2) mg/dL Total Bilirubin 0.7 (0.2-1.3) mg/dL AST 30 (17-59) U/L ALT 23 (4-49) U/L Alkaline Phosphatase 113 (38-126) U/L C-Reactive Protein <0.5 (<1.0) mg/dL Total Protein 6.8 (6.3-8.2) g/dL Albumin 4.1 (3.5-5.0) g/dL Disposition Clinical Impression: Polyarthralgia Disposition: ADMITTED IP TO THIS HOSP Is patient prescribed a controlled substance at d/c from ED?: No Referrals: Roxanna Patel MD [Primary Care Provider] - 1-2 days Time of Disposition: 15:02
[2024-01-18] MEDS: KETOROLAC 15 MG/ML 1 ML VIAL IVP STA (14:27)
[2024-01-18 14:40] LABS: Anisocytosis Slight; Basophils % (A) 0 %; Eosinophils # (A) 0.1 k/uL (0-0.7); Eosinophils % (A) 2 %; HCT 42.7 % (39.0-53.0); HGB 13.6 gm/dL (13.0-17.5); Lymphocytes % (A) 32 %; MCH 26.3 pg (25.0-35.0); MCHC 31.9 g/dL (31.0-37.0); MCV 82.6 fL (80.0-100.0); Mean Platelet Volume 8.4; Monocytes # (A) 0.6 k/uL (0-1.0); Monocytes % (A) 9 %; Neutrophils # (A) 3.5 k/uL (1.3-7.7); Neutrophils % (A) 55 %; Platelet Count 355 k/uL (150-450); RBC 5.17 m/uL (4.30-5.90); RDW 16.5 % (11.5-15.5); WBC 6.4 k/uL (3.8-10.6)
[2024-01-18 14:44] LABS: ALT 23 U/L (4-49); AST 30 U/L (17-59); African American GFR (CKD) 81 (>60 ml/min/1.73 sqM); Albumin 4.1 g/dL (3.5-5.0); Alkaline Phosphatase 113 U/L (38-126); Anion Gap 6 mmol/L; Blood Urea Nitrogen 15 mg/dL (9-20); C Reactive Protein <0.5 mg/dL (<1.0); Calcium 9.2 mg/dL (8.4-10.2); Carbon Dioxide 23 mmol/L (22-30); Chloride 109 mmol/L (98-107); Glucose 92 mg/dL (74-99); Non-African American GFR(CKD) 70 (>60 ml/min/1.73 sqM); Potassium 4.2 mmol/L (3.5-5.1); Sodium 138 mmol/L (137-145); Total Bilirubin 0.7 mg/dL (0.2-1.3); Total Protein 6.8 g/dL (6.3-8.2)
[2024-01-18] MEDS ORDERED: HYDROmorphone 1 MG/ML 1 ML SYRINGE IVP PRN (15:03)
[2024-01-18] MEDS ORDERED: NALOXONE 0.4 MG/ML 1 ML VIAL IV PRN (15:03)
[2024-01-18] MEDS ORDERED: ACETAMINOPHEN TAB 325 MG TAB PO PRN (15:03)
[2024-01-18] MEDS: HYDROmorphone 1 MG/ML 1 ML SYRINGE IVP STA (15:19)
[2024-01-18] MEDS: SODIUM CHLORIDE 0.9% 1,000 ML IV SCH (15:22)
[2024-01-18] MEDS: KETOROLAC 15 MG/ML 1 ML VIAL IVP PRN (16:53)
[2024-01-19] MEDS ORDERED: ALBUTEROL NEBULIZED 2.5 MG/3 ML INHALATION PRN (00:19)
[2024-01-19] MEDS: APIXABAN 5 MG TAB PO SCH (00:40)
[2024-01-19] MEDS: PANTOPRAZOLE 40 MG TABLET PO SCH (01:06)
[2024-01-19] MEDS: MONTELUKAST 10 MG TAB PO SCH (01:07)
[2024-01-19] MEDS: TAMSULOSIN 0.4 MG CAP.ER.24H PO SCH (01:07)
[2024-01-19] MEDS: QUEtiapine 200 MG TAB PO SCH (01:17)
[2024-01-19] MEDS: DOXYCYCLINE 50 MG CAP PO SCH (01:18)
[2024-01-19] MEDS: MIRTAZAPINE 45 MG TABLET PO SCH (01:18)
[2024-01-19] MEDS: SACUBITRIL/VALSARTAN 49 MG-51 MG TABLET PO SCH (01:18)
[2024-01-19 08:08] LABS: Rheumatoid Factor, Qnt <15 IU/mL (0-15)
[2024-01-19] MEDS: SYMBICORT 80-4.5 MCG INHALER INHALATION SCH (08:28)
[2024-01-19] MEDS: IPRATROPIUM 0.5 MG/2.5 ML NEBU INHALATION SCH (08:28)
[2024-01-19] MEDS: ASCORBIC ACID 500 MG TAB PO SCH (08:59)
[2024-01-19] MEDS ORDERED: NON FORMULARY DRUG (Omega-3/Dha/Epa/Fish Oil [Omega-3 Fish Oil 1,000 Mg Sfgl] 1 EACH Capsu PO SCH (09:00)
[2024-01-19] MEDS: CYANOCOBALAMIN 500 MCG TAB PO SCH (09:00)
[2024-01-19] MEDS ORDERED: PANTOPRAZOLE 40 MG TABLET PO SCH (09:00)
[2024-01-19] MEDS: FUROSEMIDE 20 MG TAB PO SCH (09:01)
[2024-01-19] MEDS: SPIRONOLACTONE 25 MG TAB PO SCH (09:01)
[2024-01-19] MEDS: DAPAGLIFLOZIN PROPANEDIOL 10 MG TABLET PO SCH (09:01)
[2024-01-19] MEDS: LORATADINE 10 MG TAB PO SCH (09:01)
[2024-01-19] MEDS: VIT A,C & E-LUTEIN-MINERALS 1 EACH TAB PO SCH (09:02)
--- NOTE | 2024-01-19 09:50 | P.HPIM ---
History of Present Illness H&P Date: 01/19/24 Rayray Stewart is a 73-year-old male patient who presented with complaints of bilateral knee pain patient reports he has had the symptoms occurring just to the right knee over the past week patient saw Dr. Butterfield outpatient and received steroid injection which did help for a couple days pain started to worsen again and increased to both knees. Patient says he has bilateral weakness on on unable to walk more than 10 feet slight swelling noted. Patient denies fever at home. Patient has a past medical history of atrial fibrillation, asthma, CAD, heart failure, COPD, CVA, GERD, hyperlipidemia, hypertension, AICD, previous heart cath, anxiety and depression. Lab work revealing white blood cell count 6.4, hemoglobin 13.6, creatinine 1.06, bun 15. Rheumatoid factor negative less than 15. At this time knee x-ray has been ordered orthopedic services consulted. Will order sed rate, steroids and neurology consult PT OT services consulted vital signs temp 98.3, heart 97, blood pressure 150/89 with a pulse ox of 98% on room air. Patient denies chest pain or shortness of breath. Patient denies nausea vomiting or diarrhea. 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 Stovall, gout bilateral feet, occasional numbness L leg/L great toe, diverticulitis/diverticulosis hx of PHIL with CPAP but no longer an issue since wt. 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 History of Any Multi-Drug Resistant Organisms: None Reported Past Surgical History: AICD, Cholecystectomy, Heart Catheterization, Heart Catheterization With Stent, Hernia Repair, Pacemaker, Tonsillectomy Additional Past Surgical History / Comment(s): 07/24/14 EGD/colonoscopy with polypectomy/bx, 2005 AICD/2014 AICD changed to [employer], 2002 Cardiac stent in [place], 2007 cardiac cath [facility], upper teeth extracted for denture, L ear has tube, R ear plugged, cyst removed L eyelid, bilateral cataract removal, L ganglion cyst removal, L/R inguinal hernia repairs with mesh, penile implant. Past Anesthesia/Blood Transfusion Reactions: No Reported Reaction Date of Last Stent Placement:: 2002 Type of Cardiac Device: AICD Device Placement Date:: 2014 Past Psychological History: Anxiety, Depression Additional Psychological History / Comment(s): Pt lives alone in an apartment. pt has a cane but doesnt use it. He does not own a vehicle so he uses [facility] to get to appointments. He has a medication dispenser thru [facility]. Smoking Status: Former smoker Past Alcohol Use History: None Reported Additional Past Alcohol Use History / Comment(s): Pt started smoking an occasional cigar a few years ago. Past Drug Use History: None Reported - Past Family History Father Family Medical History: Coronary Artery Disease (CAD), Pneumonia Additional Family Medical History / Comment(s): Father of pneumonia at the age of 82 yrs. Mother Family Medical History: Liver Disease, Renal Disease Additional Family Medical History / Comment(s): father passed after a bout with pneumonia Medications and Allergies Home Medications Medication Instructions Recorded Confirmed Type RX: Mirtazapine 45 mg PO HS 04/01/14 01/18/24 History RX: QUEtiapine [SEROquel] 200 mg PO BID 04/01/14 01/18/24 History RX: Montelukast [Singulair] 10 mg PO HS 07/20/14 01/18/24 History RX: Apixaban [Eliquis] 5 mg PO BID 06/02/20 01/18/24 History RX: Albuterol Inhaler [Ventolin 2 puff INHALATION RT-Q4H PRN 05/29/21 01/18/24 History Hfa Inhaler] RX: Furosemide [Lasix] 20 mg PO DAILY tab 10/27/21 01/18/24 Rx RX: Tamsulosin [Flomax] 0.4 mg PO BID cap 10/27/21 01/18/24 Rx RX: Pantoprazole [Protonix] 40 mg PO DAILY 05/31/22 01/18/24 History RX: Fluticasone/Umeclidin/Vilanter 1 puff INHALATION RT-DAILY 09/03/22 01/18/24 History [Eduardolekenneth Ellipta 100-62.5-25] RX: Dapagliflozin Propanediol 10 mg PO DAILY tab 09/11/22 01/18/24 Rx [Farxiga] RX: Spironolactone [Aldactone] 12.5 mg PO DAILY 30 Days #30 tab 10/17/22 01/18/24 Rx Acetaminophen-Codeine 300-30mg 1 tab PO TID PRN 01/18/24 01/18/24 History [Tylenol w/codeine #3] Ascorbic Acid [Vitamin C] 250 mg PO DAILY 01/18/24 01/18/24 History Atorvastatin [Lipitor] 40 mg PO HS 01/18/24 01/18/24 History Azelastine HCl [Astelin Nasal 2 spray EA NOSTRIL BID 01/18/24 01/18/24 History [place]] Cetirizine HCl [Zyrtec] 10 mg PO DAILY 01/18/24 01/18/24 History Cyanocobalamin (Vitamin B-12) 1,000 mcg PO DAILY 01/18/24 01/18/24 History [Vitamin B-12] Mv-Min/Folic/K1/Lycopen/Lutein 1 tab PO DAILY 01/18/24 01/18/24 History [Centrum Silver Men Tablet] [place]-3/Dha/Epa/Fish Oil [[place]-3 1 cap PO DAILY 01/18/24 01/18/24 History Fish Oil 1,000 mg Sfgl] Omeprazole [PriLOSEC] 20 mg PO HS 01/18/24 01/18/24 History RX: Doxycycline Monohydrate 50 mg PO BID 01/18/24 01/18/24 History Sacubitril/Valsartan [Entresto 49 1 tab PO BID 01/18/24 01/18/24 History mg-51 mg Tablet] Allergies Allergy/AdvReac Type Severity Reaction Status Date / Time Barbiturates Allergy Anaphylaxis Verified 01/18/24 15:27 doxepin Allergy Anaphylaxis Verified 01/18/24 15:27 Latex, Natural Rubber Allergy Unknown Verified 01/18/24 15:27 levofloxacin [From Levaquin] Allergy Dyspnea & Verified 01/18/24 15:27 Leg Swelling and Pain & Headache Physical Exam Vitals: Vital Signs Temp Pulse Pulse Resp BP BP Pulse Ox 01/19/24 08:43 72 18 01/19/24 08:29 72 18 01/19/24 07:00 98.4 F 56 L 16 156/84 98 01/19/24 02:00 98.3 F 97 16 150/89 91 L 01/18/24 22:13 97.8 F 61 16 178/86 99 01/18/24 21:47 97.6 F 79 16 121/60 99 01/18/24 19:34 97.4 F L 80 19 120/64 99 01/18/24 15:13 97.9 F 69 18 129/77 97 01/18/24 13:13 97.7 F 84 18 150/82 99 Intake and Output 01/18/24 01/19/24 01/19/24 22:59 06:59 14:59 Intake Total 420 236 Output Total 550 Balance 420 -314 Intake: Intake, IV Titration 160 Amount Sodium Chloride 0.9% 1, 160 000 ml @ 20 mls/hr IV . Q24H [facility] Rx#:[id number] Oral 260 236 Output: Urine 550 Other: # Voids 3 Weight 108.409 kg Head normocephalic Neck supple Lungs clear to auscultation bilaterally no wheezing or crackles Heart regular rate and rhythm S1-S2, no rub or gallop Abdomen is soft nontender nondistended positive bowel sounds no hepatosplenomegaly Extremities no edema Neuro alert and orientated to 3 Results CBC & Chem 7: 01/18/24 14:16 01/18/24 14:16 Labs: Abnormal Lab Results - Last 24 Hours (Table) 01/18/24 01/18/24 Range/Units 14:16 14:16 RDW 16.5 H (11.5-15.5) % Chloride 109 H (98-107) mmol/L Assessment and Plan Assessment: 1. polyarthralgia 2. History of right knee pain patient follows with Dr. Butterfield in clinic received steroid injection recently 3. History of COPD 4. History of atrial fibrillation maintained on Eliquis 5. History of CHF 6. History of cardiomyopathy EF 15% 7. History of GERD 8. History of BPH 9. History of anxiety and depression DVT prophylaxis Eliquis. GI prophylax Protonix Orthopedic services and neurology services consulted Patient will get be given a dose of IV steroids and started on p.o. prednisone daily ESR rate ordered X-ray of bilateral knee ordered Repeat labs for a.m. Time with Patient: Greater than 30 (Greater than 60% of the total time spent in counseling and coordination of care)
--- NOTE | 2024-01-19 09:55 | P.HPOR ---
History of Present Illness H&P Date: 01/19/24 Chief Complaint: Bilateral knee pain/lower extremity weakness The patient is a 73-year-old male who presents with bilateral knee pain he notes for the past couple weeks. He notes his legs feel like they want to give out on him. He lives alone. He does use a walker and has for the past 6 months. He denies any bowel or bladder incontinence. 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 Stovall, gout bilateral feet, occasional numbness L leg/L great toe, diverticulitis/diverticulosis hx of PHIL with CPAP but no longer an issue since wt. 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 History of Any Multi-Drug Resistant Organisms: None Reported Past Surgical History: AICD, Cholecystectomy, Heart Catheterization, Heart Catheterization With Stent, Hernia Repair, Pacemaker, Tonsillectomy Additional Past Surgical History / Comment(s): 07/24/14 EGD/colonoscopy with polypectomy/bx, 2005 AICD/2014 AICD changed to medtronic, 2002 Cardiac stent in [place], 2007 cardiac cath [facility], upper teeth extracted for denture, L ear has tube, R ear plugged, cyst removed L eyelid, bilateral cataract removal, L ganglion cyst removal, L/R inguinal hernia repairs with mesh, penile implant. Past Anesthesia/Blood Transfusion Reactions: No Reported Reaction Date of Last Stent Placement:: 2002 Type of Cardiac Device: AICD Device Placement Date:: 2014 Past Psychological History: Anxiety, Depression Additional Psychological History / Comment(s): Pt lives alone in an apartment. pt has a cane but doesnt use it. He does not own a vehicle so he uses [employer] [facility] to get to appointments. He has a medication dispenser thru [facility]. Smoking Status: Former smoker Past Alcohol Use History: None Reported Additional Past Alcohol Use History / Comment(s): Pt started smoking an occasional cigar a few years ago. Past Drug Use History: None Reported - Past Family History Father Family Medical History: Coronary Artery Disease (CAD), Pneumonia Additional Family Medical History / Comment(s): Father of pneumonia at the age of 82 yrs. Mother Family Medical History: Liver Disease, Renal Disease Additional Family Medical History / Comment(s): father passed after a bout with pneumonia Medications and Allergies Home Medications Medication Instructions Recorded Confirmed Type Mirtazapine 45 mg PO HS 04/01/14 01/18/24 History QUEtiapine [SEROquel] 200 mg PO BID 04/01/14 01/18/24 History Montelukast [Singulair] 10 mg PO HS 07/20/14 01/18/24 History Apixaban [Eliquis] 5 mg PO BID 06/02/20 01/18/24 History Albuterol Inhaler [Ventolin Hfa 2 puff INHALATION RT-Q4H PRN 05/29/21 01/18/24 History Inhaler] Furosemide [Lasix] 20 mg PO DAILY tab 10/27/21 01/18/24 Rx Tamsulosin [Flomax] 0.4 mg PO BID cap 10/27/21 01/18/24 Rx Pantoprazole [Protonix] 40 mg PO DAILY 05/31/22 01/18/24 History Fluticasone/Umeclidin/Vilanter 1 puff INHALATION RT-DAILY 09/03/22 01/18/24 History [Trelekenneth Ellipta 100-62.5-25] Dapagliflozin Propanediol [Farxiga] 10 mg PO DAILY tab 09/11/22 01/18/24 Rx Spironolactone [Aldactone] 12.5 mg PO DAILY 30 Days #30 tab 10/17/22 01/18/24 Rx Acetaminophen-Codeine 300-30mg 1 tab PO TID PRN 01/18/24 01/18/24 History [Tylenol w/codeine #3] Ascorbic Acid [Vitamin C] 250 mg PO DAILY 01/18/24 01/18/24 History Atorvastatin [Lipitor] 40 mg PO HS 01/18/24 01/18/24 History Azelastine HCl [Astelin Nasal 2 spray EA NOSTRIL BID 01/18/24 01/18/24 History [place]] Cetirizine HCl [Zyrtec] 10 mg PO DAILY 01/18/24 01/18/24 History Cyanocobalamin (Vitamin B-12) 1,000 mcg PO DAILY 01/18/24 01/18/24 History [Vitamin B-12] Doxycycline Monohydrate 50 mg PO BID 01/18/24 01/18/24 History Mv-Min/Folic/K1/Lycopen/Lutein 1 tab PO DAILY 01/18/24 01/18/24 History [Centrum Silver Men Tablet] [place]-3/Dha/Epa/Fish Oil [[place]-3 1 cap PO DAILY 01/18/24 01/18/24 History Fish Oil 1,000 mg Sfgl] Omeprazole [PriLOSEC] 20 mg PO HS 01/18/24 01/18/24 History Sacubitril/Valsartan [Entresto 49 1 tab PO BID 01/18/24 01/18/24 History mg-51 mg Tablet] Allergies Allergy/AdvReac Type Severity Reaction Status Date / Time Barbiturates Allergy Anaphylaxis Verified 01/18/24 15:27 doxepin Allergy Anaphylaxis Verified 01/18/24 15:27 Latex, Natural Rubber Allergy Unknown Verified 01/18/24 15:27 levofloxacin [From Levaquin] Allergy Dyspnea & Verified 01/18/24 15:27 Leg Swelling and Pain & Headache Physical Examination - Knee bilateral Appearance: effusion Effusion grade: grade 1 Tenderness with palpation: anterior, medial Pain: with flexion Gait: uses walker ROM: extension: -10 degrees ROM: flexion: 110 degrees Strength: extension: 5/5 Strength: flexion: 5/5 Meniscal tests: medial meniscal tests: positive, medial joint line pain: positive Results Patient is a well-developed well-nourished male who appears to be in no acute distress. No point tenderness about the upper extremities noted. Pelvis is stable to external rotation stress. He has painless passive motion of both hips. Straight leg raise is negative bilaterally. His general medial joint li ne of both knees. He has mild effusion both knees. Collaterals are stable, Eduardo was negative, Patricia's is equivocal bilaterally. He does have some diminished light touch in the right medial ankle were no gross motor deficit. - Labs Labs: Abnormal Lab Results - Last 24 Hours (Table) 01/18/24 01/18/24 Range/Units 14:16 14:16 RDW 16.5 H (11.5-15.5) % Chloride 109 H (98-107) mmol/L H & H 01/18/24 Range/Units 14:16 Hgb 13.6 (13.0-17.5) gm/dL Hct 42.7 (39.0-53.0) % Result Diagrams: 01/18/24 14:16 01/18/24 14:16 Assessment and Plan Assessment: bilateral knee medial compartment osteoarthrosis/pseudogout Atrial fibrillation Plan: At this point I recommend starting IV/oral steroids to help his symptoms. Physical therapy will be consulted to work on gait training with a walker along with strengthening. I also recommend neurology evaluation regarding his perceived lower extremity weakness.
--- NOTE | 2024-01-19 10:13 | XR ---
EXAMINATION TYPE: XR knee complete 3 views bilateral DATE OF EXAM: 01/19/2024 COMPARISON: Right knee 01/15/2024 HISTORY: 73-year-old male bilateral knee pain TECHNIQUE: 3 views each knee FINDINGS: There is meniscal chondrocalcinosis on both sides. Possible slight extrusion body of the ri ght medial meniscus. Minimal scattered degenerative spurring is present. Relative preservation of kne e joint space on both sides on these nonweightbearing views. No significant joint effusion. No lipohe marthrosis on either side. Extensor mechanisms appear intact. No acute fracture, subluxation, disloca tion. IMPRESSION: 1. No acute osseous abnormality seen. 2. No significant joint effusion. 3. Bilateral meniscal chondrocalcinosis may be idiopathic or could reflect CPPD. 4. Slightly extruded appearance to the body of the right medial meniscus could reflect an underlying meniscal tear. 5. Minimal scattered degenerative spurring on both sides. [facility], , 01/19/2024 10:10 AM
[2024-01-19] MEDS ORDERED: HYDROmorphone 2 MG/ML 1 ML SYRINGE IVP PRN (10:56)
[2024-01-19] MEDS: methylPREDNISolone SOD SUCCI 125 MG/2 ML VIAL IV STA (11:49)
[2024-01-19] MEDS: AZELASTINE 137MCG/SPRAY EA NOSTRIL SCH (13:18)
[2024-01-19] MEDS: Acetaminophen-Codeine 300-30mg TAB PO PRN (19:00)
[2024-01-19] MEDS: ATORVASTATIN 40 MG TAB PO SCH (20:38)
[2024-01-19] MEDS: traMADol 50 MG TAB PO PRN (20:46)
--- NOTE | 2024-01-20 08:22 | P.PN ---
Subjective Progress Note Date: 01/20/24 Principal diagnosis: Polyarthralgia Patient seen and examined this morning. Patient does report improvement in his right lower extremity pain and weakness. Patient continues to report that his left lower extremity remains the same. Informed patient that physical therapy will begin to work with him today. Patient verbalizes understanding. No acute concerns. Objective - Vital Signs Vital signs: Vital Signs Temp 97.9 F 01/20/24 02:00 Pulse 65 01/20/24 02:00 Resp 17 01/20/24 02:00 BP 155/80 01/20/24 02:00 Pulse Ox 100 01/20/24 02:00 FiO2 Intake & Output 01/19/24 01/20/24 01/20/24 18:59 06:59 18:59 Intake Total 472 Output Total 1515 900 Balance -1043 900 Intake: Oral 472 Output: Urine 1515 900 Other: Voiding Method Urinal # Voids 1 1 # Bowel Movements 1 1 - Exam - Knee bilateral Appearance: effusion Effusion grade: grade 1 Tenderness with palpation: anterior, medial Pain: with flexion Gait: uses walker ROM: extension: -10 degrees ROM: flexion: 110 degrees Strength: extension: 5/5 Strength: flexion: 5/5 Meniscal tests: medial meniscal tests: positive, medial joint line pain: positive - Labs CBC & Chem 7: 01/18/24 14:16 01/18/24 14:16 Labs: Abnormal Lab Results - Last 24 Hours (Table) 01/19/24 Range/Units 10:40 ESR 31 H (0-20) mm/Hr Assessment and Plan Assessment: bilateral knee medial compartment osteoarthrosis/pseudogout Atrial fibrillation Plan: At this time we do not recommend any emergent/urgent orthopedic surgical inte rvention. Patient may follow-up with Dr. Jeronimo's office for further evaluation as needed. Orthopedics is signing off at this time. Please do not hesitate to contact us for any further questions. 2. Appreciate medical management 3. Pain management - Continue with analgesics and oral prednisone 4. PT/OT - weightbearing as tolerated with a walker as needed. 7. Appreciate consult
[2024-01-20 08:39] LABS: Basophils # (A) 0.01 X 10*3/uL (0.00-0.10); Basophils % (A) 0.1 %; Eosinophils # (A) 0 X 10*3/uL (0.04-0.35); Eosinophils % (A) 0 %; HCT 42.5 % (39.6-50.0); HGB 13.5 g/dL (13.0-17.0); Lymphocytes # (A) 2.22 X 10*3/uL (0.90-5.00); Lymphocytes % (A) 25.6 %; MCH 25.9 pg (27.0-32.0); MCHC 31.8 g/dL (32.0-37.0); MCV 81.6 FL (80.0-97.0); Mean Platelet Volume 10.2 FL (9.5-12.2); Monocytes # (A) 0.67 X 10*3/uL (0.20-1.00); Monocytes % (A) 7.7 %; NRBC Per 100 WBC 0 X 10*3/uL (0.00-0.01); Neutrophils # (A) 5.73 X 10*3/uL (1.80-7.70); Neutrophils % (A) 66.1 %; Platelet Count 396 X 10*3/uL (140-440); RBC 5.21 X 10*6/uL (4.40-5.60); WBC 8.67 X 10*3/uL (4.50-10.00)
[2024-01-20 08:49] LABS: ALT 18 U/L (10-49); AST 17 U/L (14-35); Albumin 3.8 g/dL (3.8-4.9); Albumin/Globulin Ratio 1.73 Ratio (1.60-3.17); Alkaline Phosphatase 99 U/L (41-126); Blood Urea Nitrogen 15.2 mg/dL (9.0-27.0); Calcium 9.5 mg/dL (8.7-10.3); Carbon Dioxide 22.9 mmol/L (21.6-31.8); Chloride 104 mmol/L (96-109); Globulin 2.2 g/dL (1.6-3.3); Glucose 111 mg/dL (70-110); Potassium 4.2 mmol/L (3.5-5.5); Sodium 137 mmol/L (135-145); Total Bilirubin 0.2 mg/dL (0.3-1.2)
[2024-01-20] MEDS: predniSONE 20 MG TAB PO SCH (09:15)
--- NOTE | 2024-01-20 15:49 | P.CNNES ---
History of Present Illness Consult date: 01/19/24 Requesting physician: Roxanna Patel Reason for Consult: Bilateral lower extremity weakness History of Present Illness: This is a telemedicine neurology consultation performed today on 01/19/2024, in coordination with Maria Alejandra Stephenson. Patient is a 73-year-old male came to the hospital by ambulance yesterday at 1:09 PM for leg weakness. EMS flow sheet not available in the chart. Patient has been seen by myself in the hospital on 11/13/2023 for ataxia and dizziness. Patient was diagnosed with dizziness/lightheadedness, which was nonspecific, but had some orthostatic component, some vestibular component and some relation to cardiopulmonary reasons. All workup was negative. Including CTA of head and neck revealed no significant stenosis, no dissection, or aneurysm. CT head showed no hydrocephalus. TSH was normal hemoglobin A1c 6.3 on 10/09/2023. EMG and nerve conduction of lower extremities was recommended as an outpatient to rule out peripheral neuropathy. Patient apparently has not seen neurologist as yet. Also was recommended for patient to follow-up with the ENT specialist. Patient states about 4 days ago his right knee started swelling up and his ankle and feet also swell up. His walking was painful. Patient states that it was felt that patient may have hemarthrosis. However patient did not reveal any blood, was suspected then probable arthritis. His knees were wrapped up but did not help. He was referred to see Dr. Butterfield, orthopedic surgeon. Dr. Butterfield performed x-rays of both knees and injected some steroids. Next day his knees were swollen, sore, could not walk. His legs were shivering, like will fall. He felt his left leg would go under. He tried to put ice, but the pain got worse therefore he called the ambulance. Patient states that he is feeling slightly better, but still sore. He cannot raise the left leg and it hurts of the knee. He denies diabetes. Patient states that in general, initially his right leg was bothering him more, but now the left leg is worse. Patient admits to having little back pain, but blames it on sleeping on the floor. Otherwise he does not have any significant back pain. Vital signs on arrival blood pressure 150/82, pulse 84 temperature 97.7. Blood test shows normal CBC, CMP, rheumatoid factor less than 15. CRP is normal less than 0.5. Patient's last hemoglobin A1c 6.3 on 10/09/2023. B12 1135, folate 11.2 on 11/17/2023. TSH is normal. X-ray of the knee showed no acute osseous abnormality. No significant joint effusion. Bilateral meniscal chondrocalcinosis may be idiopathic or could reflect CPPD. Slightly extruded appearance to the body of the right medial meniscus could reflect an underlying meniscus tear. Scattered minimal degenerative spurring on both sides. Home medications include omeprazole, and Crestor, B12 1001 g orally daily, Lipitor 40 mg, Aldactone, far seizure, Protonix, Flomax, Eliquis 5 g twice a day and similar. Mirtazapine. Review of Systems Pertinent positive and negatives mentioned as is in the HPI. Otherwise noncontributory. 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 Stovall, gout bilateral feet, occasional numbness L leg/L great toe, diverticulitis/diverticulosis hx of PHIL with CPAP but no longer an issue since wt. 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 History of Any Multi-Drug Resistant Organisms: None Reported Past Surgical History: AICD, Cholecystectomy, Heart Catheterization, Heart Catheterization With Stent, Hernia Repair, Pacemaker, Tonsillectomy Additional Past Surgical History / Comment(s): 07/24/14 EGD/colonoscopy with polypectomy/bx, 2005 AICD/2014 AICD changed to medtronic, 2002 Cardiac stent in [place], 2007 cardiac cath [facility], upper teeth extracted for denture, L ear has tube, R ear plugged, cyst removed L eyelid, bilateral cataract removal, L ganglion cyst removal, L/R inguinal hernia repairs with mesh, penile implant. Past Anesthesia/Blood Transfusion Reactions: No Reported Reaction Date of Last Stent Placement:: 2002 Type of Cardiac Device: AICD Device Placement Date:: 2014 Past Psychological History: Anxiety, Depression Additional Psychological History / Comment(s): Pt lives alone in an apartment. pt has a cane but doesnt use it. He does not own a vehicle so he uses [facility] to get to appointments. He has a medication dispenser thru [facility]. Smoking Status: Former smoker Past Alcohol Use History: None Reported Additional Past Alcohol Use History / Comment(s): Pt started smoking an occasional cigar a few years ago. Past Drug Use History: None Reported - Past Family History Father Family Medical History: Coronary Artery Disease (CAD), Pneumonia Additional Family Medical History / Comment(s): Father of pneumonia at the age of 82 yrs. Mother Family Medical History: Liver Disease, Renal Disease Additional Family Medical History / Comment(s): father passed after a bout with pneumonia Medications and Allergies Home Medications Medication Instructions Recorded Confirmed Type Mirtazapine 45 mg PO HS 04/01/14 01/18/24 History QUEtiapine [SEROquel] 200 mg PO BID 04/01/14 01/18/24 History Montelukast [Singulair] 10 mg PO HS 07/20/14 01/18/24 History Apixaban [Eliquis] 5 mg PO BID 06/02/20 01/18/24 History Albuterol Inhaler [Ventolin Hfa 2 puff INHALATION RT-Q4H PRN 05/29/21 01/18/24 History Inhaler] Furosemide [Lasix] 20 mg PO DAILY tab 10/27/21 01/18/24 Rx Tamsulosin [Flomax] 0.4 mg PO BID cap 10/27/21 01/18/24 Rx Pantoprazole [Protonix] 40 mg PO DAILY 05/31/22 01/18/24 History Fluticasone/Umeclidin/Vilanter 1 puff INHALATION RT-DAILY 09/03/22 01/18/24 History [Trelegy Ellipta 100-62.5-25] Dapagliflozin Propanediol [Farxiga] 10 mg PO DAILY tab 09/11/22 01/18/24 Rx Spironolactone [Aldactone] 12.5 mg PO DAILY 30 Days #30 tab 10/17/22 01/18/24 Rx Acetaminophen-Codeine 300-30mg 1 tab PO TID PRN 01/18/24 01/18/24 History [Tylenol w/codeine #3] Ascorbic Acid [Vitamin C] 250 mg PO DAILY 01/18/24 01/18/24 History Atorvastatin [Lipitor] 40 mg PO HS 01/18/24 01/18/24 History Azelastine HCl [Astelin Nasal 2 spray EA NOSTRIL BID 01/18/24 01/18/24 History [place]] Cetirizine HCl [Zyrtec] 10 mg PO DAILY 01/18/24 01/18/24 History Cyanocobalamin (Vitamin B-12) 1,000 mcg PO DAILY 01/18/24 01/18/24 History [Vitamin B-12] Doxycycline Monohydrate 50 mg PO BID 01/18/24 01/18/24 History Mv-Min/Folic/K1/Lycopen/Lutein 1 tab PO DAILY 01/18/24 01/18/24 History [Centrum Silver Men Tablet] Ideal-3/Dha/Epa/Fish Oil [Ideal-3 1 cap PO DAILY 01/18/24 01/18/24 History Fish Oil 1,000 mg Sfgl] Omeprazole [PriLOSEC] 20 mg PO HS 01/18/24 01/18/24 History Sacubitril/Valsartan [Entresto 49 1 tab PO BID 01/18/24 01/18/24 History mg-51 mg Tablet] Allergies Allergy/AdvReac Type Severity Reaction Status Date / Time Barbiturates Allergy Anaphylaxis Verified 01/18/24 15:27 doxepin Allergy Anaphylaxis Verified 01/18/24 15:27 Latex, Natural Rubber Allergy Unknown Verified 01/18/24 15:27 levofloxacin [From Levaquin] Allergy Dyspnea & Verified 01/18/24 15:27 Leg Swelling and Pain & Headache Physical Examination - Vital Signs Vital Signs: Vital Signs Temp Pulse Pulse Resp BP BP Pulse Ox 01/19/24 12:08 73 18 01/19/24 11:57 72 18 01/19/24 08:43 72 18 01/19/24 08:29 72 18 01/19/24 07:00 98.4 F 56 L 16 156/84 98 01/19/24 02:00 98.3 F 97 16 150/89 91 L 01/18/24 22:13 97.8 F 61 16 178/86 99 01/18/24 21:47 97.6 F 79 16 121/60 99 01/18/24 19:34 97.4 F L 80 19 120/64 99 01/18/24 15:13 97.9 F 69 18 129/77 97 Intake and Output 01/18/24 01/19/24 01/19/24 22:59 06:59 14:59 Intake Total 420 236 Output Total 900 Balance 420 -664 Intake: Intake, IV Titration 160 Amount Sodium Chloride 0.9% 1, 160 000 ml @ 20 mls/hr IV . Q24H NOREEN Rx#:[id number] Oral 260 236 Output: Urine 900 Other: # Voids 3 Weight 108.409 kg Patient is an elderly Afro-[place] male, very pleasant, in no acute distress. Patient is alert awake oriented to time place and person. Speech and language functions are normal. Patient can name and repeat very well. No aphasia or dysarthria. Attention, concentration and fund of knowledge is adequate. On cranial nerve examination, pupils are equal, round and reacting to light, visual mckeon are full on confrontation, with no neglect on double simultaneous stimulation. Extraocular muscles are intact with no nystagmus. Face is symmetric, tongue protrudes to the midline. Palatal elevation and sensation normal, hearing and shoulder shrug normal, facial sensation normal. 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 The lower limbs (right/left) hip flexion 3+/3, plantarflexion 4/4, ankle dorsiflexion 4/3. Deep tendon reflexes are symmetric 1 at the biceps, 1 brachioradialis, 1 at the right knee, 2 on the left. Plantars are flat. Sensory to touch is equal with no neglect on double simultaneous stimulation. Cerebellar function showed no ataxia for [id number] testing. No dysdiadochokinesia. No ataxia for [id number] testing on either side. Tone and bulk of muscles normal. Gait deferred.. On general examination, there is no carotid bruit or murmur, S1-S2 audible. Chest is clear on consultation. Abdomen is soft nontender. No organomegaly, bowel sounds present. Peripheral pulses are present. No peripheral edema. Results - Laboratory Findings CBC and BMP: 01/20/24 05:02 01/20/24 05:02 Abnormal Lab Findings: Abnormal Labs 01/18/24 01/18/24 14:16 14:16 RDW 16.5 H Chloride 109 H Assessment and Plan Assessment: * Difficulty walking, with knee swelling and pain. Likely related to degenerative joint disease of the knees. * Frequent falls due to losing balance, rule out peripheral neuropathy. Patient denies any back pain or radicular symptoms. * Borderline diabetes * Atrial fibrillation, on Eliquis * Pacemaker * Hypertension * Hyperlipidemia * COPD * Acid reflux * CAD, CHF, COPD Plan: * Neurologically, no other workup indicated. * Regarding knee pain, will defer to the orthopedic surgery. * Recommend EMG nerve conduction of lower extremity as an outpatient. * Patient's hemoglobin A1c 6.3 on 10/09/2023. B12 1135, folate 11.2, vitamin D 37, rheumatoid factor negative and TSH is normal. No need to repeat. * Continue Eliquis 5 mg twice daily for atrial fibrillation. * PT OT. * Thank you for the consultation.
--- NOTE | 2024-01-20 16:46 | P.PN ---
Subjective Progress Note Date: 01/20/24 Rayray Stewart is a 73-year-old male patient who presented with complaints of bilateral knee pain patient reports he has had the symptoms occurring just to the right knee over the past week patient saw Dr. Butterfield outpatient and received steroid injection which did help for a couple days pain started to worsen again and increased to both knees. Patient says he has bilateral weakness on on unable to walk more than 10 feet slight swelling noted. Patient denies fever at home. Patient has a past medical history of atrial fibrillation, asthma, CAD, heart failure, COPD, CVA, GERD, hyperlipidemia, hypertension, AICD, previous heart cath, anxiety and depression. Lab work revealing white blood cell count 6.4, hemoglobin 13.6, creatinine 1.06, bun 15. Rheumatoid factor negative less than 15. At this time knee x-ray has been ordered orthopedic services consulted. Will order sed rate, steroids and neurology consult PT OT services consulted vital signs temp 98.3, heart 97, blood pressure 150/89 with a pulse ox of 98% on room air. Patient denies chest pain or shortness of breath. Patient denies nausea vomiting or diarrhea. Patient denies any urinary burning or frequency On 01/20/2024 patient was seen and examined on the medical floor he is alert and oriented x 3 in no apparent distress he is complaining of severe pain in the left lower extremity with difficulty standing and walking, otherwise he denies any complaints there is no fever or chills no headache or dizziness no chest pain no shortness of breath no cough no nausea or vomiting no abdominal pain no diarrhea no blood in the stools no burning with urination no frequency or urgency and no hematuria. Patient was evaluated by orthopedic surgery, they requested physical therapy and neurology evaluation, will continue to follow closely. Objective - Vital Signs Vital signs: Vital Signs Temp 97.5 F L 01/20/24 13:42 Pulse 75 01/20/24 15:34 Resp 17 01/20/24 13:42 BP 124/75 01/20/24 13:42 Pulse Ox 96 01/20/24 13:42 FiO2 Intake & Output 01/19/24 01/20/24 01/20/24 18:59 06:59 18:59 Intake Total 472 1048 Output Total 1515 900 Balance -1043 -900 1048 Intake: Oral 472 1048 Output: Urine 1515 900 Other: Voiding Method Urinal # Voids 1 1 3 # Bowel Movements 1 1 0 - Exam Head normocephalic Neck supple Lungs clear to auscultation bilaterally no wheezing or crackles Heart regular rate and rhythm S1-S2, no rub or gallop Abdomen is soft nontender nondistended positive bowel sounds no hepatosplenomegaly Extremities no edema Neuro alert and orientated to 3 - Labs CBC & Chem 7: 01/20/24 05:02 01/20/24 05:02 Labs: Abnormal Lab Results - Last 24 Hours (Table) 01/19/24 01/20/24 01/20/24 Range/Units 10:40 05:02 05:02 MCH 25.9 L (27.0-32.0) pg MCHC 31.8 L (32.0-37.0) g/dL RDW 17.0 H (11.5-14.5) % Eosinophils # 0 L (0.04-0.35) X 10*3/uL ESR 31 H (0-20) mm/Hr Glucose 111 H (70-110) mg/dL Total Bilirubin 0.2 L (0.3-1.2) mg/dL Total Protein 6.0 L (6.2-8.2) g/dL Assessment and Plan Assessment: 1. polyarthralgia 2. History of right knee pain patient follows with Dr. Butterfield in clinic received steroid injection recently 3. History of COPD 4. History of atrial fibrillation maintained on Eliquis 5. History of CHF 6. History of cardiomyopathy EF 15% 7. History of GERD 8. History of BPH 9. History of anxiety and depression DVT prophylaxis Eliquis. GI prophylax Protonix Orthopedic services and neurology services consulted Patient will get be given a dose of IV steroids and started on p.o. prednisone daily ESR rate ordered X-ray of bilateral knee ordered Repeat labs for a.m.
--- NOTE | 2024-01-21 09:31 | P.DS ---
Providers Date of admission: 01/18/24 15:04 Expected date of discharge: 01/21/24 Attending physician: Roxanna Patel Consults: 01/18/24 15:03 Consult Physician Routine Consulting Provider: Raúl Jeronimo Consult Reason/Comments: Polyarthralgia Do you want consulting provider notified?: Yes 01/19/24 09:42 Consult Physician Routine Consulting Provider: Omar Burdick Consult Reason/Comments: bilateral leg weakness Do you want consulting provider notified?: Yes Primary care physician: Roxanna Patel [facility] Hospital Course: Discharge diagnosis 1. polyarthralgia 2. History of right knee pain patient follows with Dr. Butterfield in clinic received steroid injection recently 3. History of COPD 4. History of atrial fibrillation maintained on Eliquis 5. History of CHF 6. History of cardiomyopathy EF 15% 7. History of GERD 8. History of BPH 9. History of anxiety and depression Hospital course Rayray Stewart is a 73-year-old male patient who presented with complaints of bilateral knee pain patient reports he has had the symptoms occurring just to the right knee over the past week patient saw Dr. Butterfield outpatient and received steroid injection which did help for a couple days pain started to worsen again and increased to both knees. Patient says he has bilateral weakness on on unable to walk more than 10 feet slight swelling noted. Patient denies fever at home. Patient has a past medical history of atrial fibrillation, asthma, CAD, heart failure, COPD, CVA, GERD, hyperlipidemia, hypertension, AICD, previous heart cath, anxiety and depression. Lab work revealing white blood cell count 6.4, hemoglobin 13.6, creatinine 1.06, bun 15. Rheumatoid factor negative less than 15. At this time knee x-ray has been ordered orthopedic services consulted. Will order sed rate, steroids and neurology consult PT OT services consulted vital signs temp 98.3, heart 97, blood pressure 150/89 with a pulse ox of 98% on room air. Patient denies chest pain or shortness of breath. Patient denies nausea vomiting or diarrhea. Patient denies any urinary burning or frequency On 01/20/2024 patient was seen and examined on the medical floor he is alert and oriented x 3 in no apparent distress he is complaining of severe pain in the left lower extremity with difficulty standing and walking, otherwise he denies any complaints there is no fever or chills no headache or dizziness no chest pain no shortness of breath no cough no nausea or vomiting no abdominal pain no diarrhea no blood in the stools no burning with urination no frequency or urgency and no hematuria. Patient was evaluated by orthopedic surgery, they requested physical therapy and neurology evaluation, will continue to follow closely. On 01/21/2024 patient is alert and oriented x 3. Patient reports improvement with balance and walking. Will discharge patient on p.o. steroids patient to follow-up with PCP and orthopedic services for further management. At this time patient denies chest pain or shortness of breath. Patient denies nausea vomiting or diarrhea. Patient denies any urinary burning or frequency Patient Condition at Discharge: Stable Plan - Discharge Summary Discharge Rx Participant: No New Discharge Prescriptions: New predniSONE [Deltasone] 20 mg PO DAILY 6 Days #6 tab Continue Mirtazapine 45 mg PO HS QUEtiapine [SEROquel] 200 mg PO BID Montelukast [Singulair] 10 mg PO HS Apixaban [Eliquis] 5 mg PO BID Furosemide [Lasix] 20 mg PO DAILY tab Fluticasone/Umeclidin/Vilanter [Trelegy Ellipta 100-62.5-25] 1 puff INHALATION RT-DAILY Dapagliflozin Propanediol [Farxiga] 10 mg PO DAILY tab Spironolactone [Aldactone] 12.5 mg PO DAILY 30 Days #30 tab Azelastine HCl [Astelin Nasal Diablo] 2 spray EA NOSTRIL BID Acetaminophen-Codeine 300-30mg [Tylenol w/codeine #3] 1 tab PO TID PRN PRN Reason: Pain Atorvastatin [Lipitor] 40 mg PO HS [place]-3/Dha/Epa/Fish Oil [[place]-3 Fish Oil 1,000 mg Sfgl] 1 cap PO DAILY Mv-Min/Folic/K1/Lycopen/Lutein [Centrum Silver Men Tablet] 1 tab PO DAILY Cyanocobalamin (Vitamin B-12) [Vitamin B-12] 1,000 mcg PO DAILY Doxycycline Monohydrate 50 mg PO BID Albuterol Inhaler [Ventolin Hfa Inhaler] 2 puff INHALATION RT-Q4H PRN PRN Reason: Shortness Of Breath Tamsulosin [Flomax] 0.4 mg PO BID cap Pantoprazole [Protonix] 40 mg PO DAILY Sacubitril/Valsartan [Entresto 49 mg-51 mg Tablet] 1 tab PO BID Omeprazole [PriLOSEC] 20 mg PO HS Cetirizine HCl [Zyrtec] 10 mg PO DAILY Ascorbic Acid [Vitamin C] 250 mg PO DAILY Discharge Medication List Mirtazapine 45 mg PO HS 04/01/14 [History] QUEtiapine [SEROquel] 200 mg PO BID 04/01/14 [History] Montelukast [Singulair] 10 mg PO HS 07/20/14 [History] Apixaban [Eliquis] 5 mg PO BID 06/02/20 [History] Albuterol Inhaler [Ventolin Hfa Inhaler] 2 puff INHALATION RT-Q4H PRN 05/29/21 [History] Furosemide [Lasix] 20 mg PO DAILY tab 10/27/21 [Rx] Tamsulosin [Flomax] 0.4 mg PO BID cap 10/27/21 [Rx] Pantoprazole [Protonix] 40 mg PO DAILY 05/31/22 [History] Fluticasone/Umeclidin/Vilanter [Trelegy Ellipta 100-62.5-25] 1 puff INHALATION RT-DAILY 09/03/22 [History] Dapagliflozin Propanediol [Farxiga] 10 mg PO DAILY tab 09/11/22 [Rx] Spironolactone [Aldactone] 12.5 mg PO DAILY 30 Days #30 tab 10/17/22 [Rx] Acetaminophen-Codeine 300-30mg [Tylenol w/codeine #3] 1 tab PO TID PRN 01/18/24 [History] Ascorbic Acid [Vitamin C] 250 mg PO DAILY 01/18/24 [History] Atorvastatin [Lipitor] 40 mg PO HS 01/18/24 [History] Azelastine HCl [Astelin Nasal Diablo] 2 spray EA NOSTRIL BID 01/18/24 [History] Cetirizine HCl [Zyrtec] 10 mg PO DAILY 01/18/24 [History] Cyanocobalamin (Vitamin B-12) [Vitamin B-12] 1,000 mcg PO DAILY 01/18/24 [History] Doxycycline Monohydrate 50 mg PO BID 01/18/24 [History] Mv-Min/Folic/K1/Lycopen/Lutein [Centrum Silver Men Tablet] 1 tab PO DAILY 01/18/24 [History] [place]-3/Dha/Epa/Fish Oil [[place]-3 Fish Oil 1,000 mg Sfgl] 1 cap PO DAILY 01/18/24 [History] Omeprazole [PriLOSEC] 20 mg PO HS 01/18/24 [History] Sacubitril/Valsartan [Entresto 49 mg-51 mg Tablet] 1 tab PO BID 01/18/24 [History] predniSONE [Deltasone] 20 mg PO DAILY 6 Days #6 tab 01/21/24 [Rx] Follow up Appointment(s)/Referral(s): Roxanna Patel MD [Primary Care Provider] - 1-2 days Raúl Jeronimo MD [STAFF PHYSICIAN] - 1 Week Activity/Diet/Wound Care/Special Instructions: Activity as tolerated Diet heart healthy Discharge Disposition: HOME WITH HOME HEALTH SERVICES
[2024-01-21 11:49] VITALS: BP 120/78; RESP 18; TEMP 97.6
[2024-01-21 12:11] VITALS: PULSE 85
== END 2024-01-21 15:34 | disposition home health service (06) ==
LOC: EC 13:09 → 6NMEDSUR 15:04
PROVIDERS: ADMIT Internal Medicine; ATTEND Internal Medicine
DX: M25.561 Pain in right knee (principal); M25.562 Pain in left knee; M11.262 Other chondrocalcinosis, left knee; M11.261 Other chondrocalcinosis, right knee; M17.0 Bilateral primary osteoarthritis of knee; M10.9 Gout, unspecified; J44.9 Chronic obstructive pulmonary disease, unspecified; I48.91 Unspecified atrial fibrillation; I11.0 Hypertensive heart disease with heart failure; I50.9 Heart failure, unspecified; I42.9 Cardiomyopathy, unspecified; I25.10 Atherosclerotic heart disease of native coronary artery without angina pectoris; K21.9 Gastro-esophageal reflux disease without esophagitis; N40.0 Benign prostatic hyperplasia without lower urinary tract symptoms; R29.6 Repeated falls; F32.A Depression, unspecified; E78.5 Hyperlipidemia, unspecified; F41.9 Anxiety disorder, unspecified; R73.03 Prediabetes; G47.33 Obstructive sleep apnea (adult) (pediatric); Z79.01 Long term (current) use of anticoagulants; Z79.82 Long term (current) use of aspirin; Z79.84 Long term (current) use of oral hypoglycemic drugs; Z79.899 Other long term (current) drug therapy; Z86.73 Personal history of transient ischemic attack (TIA), and cerebral infarction without residual deficits; Z87.891 Personal history of nicotine dependence; Z95.5 Presence of coronary angioplasty implant and graft; Z95.810 Presence of automatic (implantable) cardiac defibrillator; Z88.1 Allergy status to other antibiotic agents
CPT/HCPCS: 96376 ×3; 96375 ×2; 96374; 99284; 36415; 94640 ×6; 97161; 80053 ×2; 85652; 85025 ×2; 86140; 86431; 73562; G0378 ×4; J1171; J1885 ×3; J7512 ×2; J2919

== ENCOUNTER 2024-10-19 09:50 | Observation (INO) | payer MEDICARE, OTHER ==
[2024-10-19 10:39] LABS: Basophils # (A) 0.04 10*3/uL (0.00-0.10); Basophils % (A) 0.5 %; Eosinophils # (A) 0.13 10*3/uL (0.04-0.35); Eosinophils % (A) 1.7 %; HCT 43.7 % (39.6-50.0); HGB 14.0 g/dL (13.0-17.0); Lymphocytes # (A) 3.15 10*3/uL (0.90-5.00); Lymphocytes % (A) 42.4 %; MCH 27.4 pg (27.0-32.0); MCHC 32.0 g/dL (32.0-37.0); MCV 85.5 fL (80.0-97.0); Monocytes # (A) 0.54 10*3/uL (0.20-1.00); Monocytes % (A) 7.3 %; Neutrophils # (A) 3.56 10*3/uL (1.80-7.70); Neutrophils % (A) 48.0 %; Platelet Count 417 10*3/uL (140-440); RBC 5.11 10*6/uL (4.40-5.60); RDW 14.9 % (11.5-14.5); WBC 7.43 10*3/uL (4.50-10.00)
--- NOTE | 2024-10-19 10:51 | XR ---
EXAMINATION TYPE: XR chest 2V DATE OF EXAM: 10/19/2024 10:43 AM COMPARISON: 12/15/2023 CLINICAL INDICATION: Male, 74 years old with history of Chest Pain: Shortness of breath TECHNIQUE: XR chest 2V views of the chest are obtained. FINDINGS: Scattered senescent parenchymal changes noted. Hyperinflation compatible with COPD. No evidence for infiltrate. No evidence for atelectasis. Heart size is stable. Mediastinal structures are stable and grossly unremarkable. No evidence for hilar prominence. Degenerative changes dorsal spine. IMPRESSION: 1. No evidence for acute pulmonary disease. [facility], , 10/19/2024 10:49 AM
--- NOTE | 2024-10-19 10:52 | XR ---
EXAMINATION TYPE: XR knee complete RT DATE OF EXAM: 10/19/2024 10:43 AM COMPARISON: None. CLINICAL INDICATION: Male, 74 years old with history of fall, pain, pain TECHNIQUE: XR knee complete RT views were obtained FINDINGS: There is no acute fracture/dislocation. Moderate narrowing bilateral lateral tibiofemoral joint spaces with chondrocalcinosis of the menisci. The overlying soft tissue appears unremarkable. IMPRESSION: There is no acute fracture or dislocation.ICD 10 NO FRACTURE, INITIAL EVALUATION [facility], , 10/19/2024 10:50 AM
[2024-10-19 10:53] LABS: ALT 18 U/L (4-49); AST 19 U/L (17-59); African American GFR (CKD) 83 (>60 ml/min/1.73 sqM); Albumin 3.9 g/dL (3.5-5.0); Alkaline Phosphatase 126 U/L (38-126); Anion Gap 14 mmol/L; Blood Urea Nitrogen 20 mg/dL (9-20); Calcium 9.6 mg/dL (8.4-10.2); Carbon Dioxide 20 mmol/L (22-30); Chloride 102 mmol/L (98-107); Glucose 104 mg/dL (74-99); Magnesium 2.0 mg/dL (1.6-2.3); Non-African American GFR(CKD) 72 (>60 ml/min/1.73 sqM); Potassium 4.0 mmol/L (3.5-5.1); Sodium 136 mmol/L (137-145); Total Protein 6.8 g/dL (6.3-8.2)
[2024-10-19 10:57] LABS: INR 1.0 (<1.2); Partial Thromboplastin Time 31.4 sec (22.0-30.0); Prothrombin Time 11.3 sec (10.0-12.5)
[2024-10-19 10:59] LABS: NT-Pro-B-Type Natriuretic Pept 29 pg/mL
--- NOTE | 2024-10-19 12:46 | ED ---
Chest Pain HPI - General Chief Complaint: Chest Pain Stated Complaint: Chest pain Time Seen by Provider: 10/19/24 09:53 Source: patient, EMS, RN notes reviewed Mode of arrival: EMS Limitations: no limitations - History of Present Illness Initial Comments: 74-year-old male presents emergency department complaint of chest pain. Patient states his symptom is left-sided chest pain. Patient states he has some pressure squeezing type discomfort. Patient states that he does have a history of cardiac disease. Patient states that nothing is making it feel better or worse at this time. Patient states he had mild shortness of breath. Patient denies fevers or chills she has had a slight cough no history of CHF no leg swelling or leg pain. Patient states she does have a history of edema hypertension diabetes - Related Data Home Medications Medication Instructions Recorded Confirmed Mirtazapine 45 mg PO HS@1900 04/01/14 10/19/24 QUEtiapine [SEROquel] 200 mg PO BID@0700,1900 04/01/14 10/19/24 Montelukast [Singulair] 10 mg PO HS@1900 07/20/14 10/19/24 Apixaban [Eliquis] 5 mg PO BID@0700,1900 06/02/20 10/19/24 Albuterol Inhaler [Ventolin Hfa 2 puff INHALATION RT-QID 05/29/21 10/19/24 Inhaler] Pantoprazole [Protonix] 40 mg PO DAILY@0700 05/31/22 10/19/24 Fluticasone/Umeclidin/Vilanter 1 puff INHALATION RT-DAILY@0709/03/22 10/19/24 [Shireen Ellipta 100-62.5-25] Atorvastatin [Lipitor] 40 mg PO HS@1900 01/18/24 10/19/24 Sacubitril/Valsartan [Entresto 49 1 tab PO BID@07,189901/18/24 10/19/24 mg-51 mg Tablet] Cefdinir [Omnicef] 300 mg PO DIRECTED 10/19/24 10/19/24 Dapagliflozin Propanediol [Farxiga] 10 mg PO DAILY@69910/19/24 10/19/24 Furosemide [Lasix] 20 mg PO DAILY@0700 10/19/24 10/19/24 Spironolactone [Aldactone] 12.5 mg PO DAILY@0700 10/19/24 10/19/24 Tamsulosin [Flomax] 0.4 mg PO BID@0700,1900 10/19/24 10/19/24 methylPREDNISolone [Medrol Dose See Taper PO DIRECTED 10/19/24 10/19/24 Pack] Allergies Allergy/AdvReac Type Severity Reaction Status Date / Time Barbiturates Allergy Anaphylaxis Verified 10/19/24 12:27 doxepin Allergy Anaphylaxis Verified 10/19/24 12:27 Latex, Natural Rubber Allergy Unknown Verified 10/19/24 12:27 levofloxacin [From Levaquin] Allergy Dyspnea & Verified 10/19/24 12:27 Leg Swelling and Pain & Headache Review of Systems ROS Statement: Those systems with pertinent positive or pertinent negative responses have been documented in the HPI. ROS Other: All systems not noted in ROS Statement are negative. 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 Stovall, gout bilateral feet, occasional numbness L leg/L great toe, diverticulitis/diverticulosis hx of PHIL with CPAP but no longer an issue since wt. 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 History of Any Multi-Drug Resistant Organisms: None Reported Past Surgical History: AICD, Cholecystectomy, Heart Catheterization, Heart Catheterization With Stent, Hernia Repair, Pacemaker, Tonsillectomy Additional Past Surgical History / Comment(s): 07/24/14 EGD/colonoscopy with polypectomy/bx, 2005 AICD/2014 AICD changed to medtronic, 2002 Cardiac stent in [place], 2007 cardiac cath [facility], upper teeth extracted for denture, L ear has tube, R ear plugged, cyst removed L eyelid, bilateral cataract removal, L ganglion cyst removal, L/R inguinal hernia repairs with mesh, penile implant. Past Anesthesia/Blood Transfusion Reactions: No Reported Reaction Date of Last Stent Placement:: 2002 Type of Cardiac Device: AICD Device Placement Date:: 2014 Past Psychological History: Anxiety, Depression Smoking Status: Former smoker Past Alcohol Use History: None Reported Past Drug Use History: None Reported - Past Family History Father Family Medical History: Coronary Artery Disease (CAD), Pneumonia Additional Family Medical History / Comment(s): Father of pneumonia at the age of 82 yrs. Mother Family Medical History: Liver Disease, Renal Disease Additional Family Medical History / Comment(s): father passed after a bout with pneumonia General Exam Limitations: no limitations General appearance: alert, in no apparent distress Head exam: Present: atraumatic, normocephalic, normal inspection Eye exam: Present: normal appearance, PERRL, EOMI. Absent: scleral icterus, conjunctival injection, periorbital swelling ENT exam: Present: normal exam, mucous membranes moist Neck exam: Present: normal inspection, full ROM. Absent: tenderness, meningismus, lymphadenopathy Respiratory exam: Present: normal lung sounds bilaterally. Absent: respiratory distress, wheezes, rales, rhonchi, stridor Cardiovascular Exam: Present: regular rate, normal rhythm, normal heart sounds. Absent: systolic murmur, diastolic murmur, rubs, gallop, clicks GI/Abdominal exam: Present: soft, normal bowel sounds. Absent: distended, tenderness, guarding, rebound, rigid Neurological exam: Present: alert, oriented X3, CN II-XII intact Course Vital Signs 10/19/24 10/19/24 10/19/24 09:52 10:30 11:12 Temperature 98.2 F Pulse Rate 92 90 76 Respiratory 20 18 20 Rate Blood Pressure 117/94 90/56 101/76 O2 Sat by Pulse 95 96 94 L Oximetry 10/19/24 13:21 Temperature Pulse Rate 81 Respiratory 25 H Rate Blood Pressure 96/65 O2 Sat by Pulse 94 L Oximetry Chest Pain MDM - MDM Was pt. sent in by a medical professional or institution (, PA, CORPORATE LEGAL INTERN, urgent care, hospital, or long-term...) When possible be specific @ -No Did you speak to anyone other than the patient for history (EMS, parent, family, police, friend...)? What history was obtained from this source @ -No Did you review nursing and triage notes (agree or disagree)? Why? @ -I reviewed and agree with nursing and triage notes Were old charts reviewed (outside hosp., previous admission, EMS record, old EKG, old radiological studies, urgent care reports/EKG's, long-term records)? Report findings @ -No old charts were reviewed Differential Diagnosis (chest pain, altered mental status, abdominal pain women, abdominal pain men, vaginal bleeding, weakness, fever, dyspnea, syncope, headache, dizziness, GI bleed, back pain, seizure, CVA, palpatations, mental health, musculoskeletal)? @ -Differential Chest Pain: Stable Angina, Unstable Angina, STEMI, NSTEMI Aortic Dissection, Pneumothorax, Musculoskeletal, Esophageal Spasm GERD, Cholecystitis, Pancreatitis, Zoster, this is not meant to be an all-inclusive list. EKG interpreted by me (3pts min.). @ -As above X-rays interpreted by me (1pt min.). @ -[Chest shows no acute cardiopulmonary process. CT interpreted by me (1pt min.). @ -None done U/S interpreted by me (1pt. min.). @ -None done What testing was considered but not performed or refused? (CT, X-rays, U/S, labs)? Why? @ -None What meds were considered but not given or refused? Why? @ -None Did you discuss the management of the patient with other professionals (professionals i.e. , PA, CORPORATE LEGAL INTERN, lab, RT, psych nurse, social media marketing manager, food and beverage outlets manager, teacher, attendance officer, watch case polisher)? Give summary @ -Dr. Patel for admission Was smoking cessation discussed for >3mins.? @ -No Was critical care preformed (if so, how long)? @ -No Were there social determinants of health that impacted care today? How? (Homelessness, low income, unemployed, alcoholism, drug addiction, transportation, low edu. Level, literacy, decrease access to med. care, half-way, rehab)? @ -No Was there de-escalation of care discussed even if they declined (Discuss DNR or withdrawal of care, Hospice)? DNR status @ -No What co-morbidities impacted this encounter? (DM, HTN, Smoking, COPD, CAD, Cancer, CVA, ARF, Chemo, Hep., AIDS, mental health diagnosis, sleep apnea, morbid obesity)? @ -None Was patient admitted / discharged? Hospital course, mention meds given and route, prescriptions, significant lab abnormalities, going to OR and other pertinent info. @ -Admitted patient has significant cardiac history, multiple risk factors. Patient be admitted for cardiac rule initial troponin is negative. Undiagnosed new problem with uncertain prognosis? @ -No Drug Therapy requiring intensive monitoring for toxicity (Heparin, Nitro, Insulin, Cardizem)? @ -No Were any procedures done? @ -No Diagnosis/symptom? @ -Chest pain Acute, or Chronic, or Acute on Chronic? @ -Acute Uncomplicated (without systemic symptoms) or Complicated (systemic symptoms)? @ -Complicated Side effects of treatment? @ -No Exacerbation, Progression, or Severe Exacerbation? @ -No Poses a threat to life or bodily function? How? (Chest pain, [place], MS, pneumonia, PE, COPD, DKA, ARF, appy, cholecystitis, CVA, Diverticulitis, Homicidal, Suicidal, threat to staff... and all critical care pts) @ -Yes risk to cardiac function Disposition Clinical Impression: Chest pain Disposition: ADMITTED IP TO THIS HOSP Condition: Fair Time of Disposition: 13:01
[2024-10-19] MEDS ORDERED: NITROGLYCERIN SL TABS 0.4 MG TAB SUBLINGUAL PRN (13:01)
[2024-10-19] MEDS: ASPIRIN 81 MG PO STA (13:06)
[2024-10-20] MEDS: SACUBITRIL/VALSARTAN 49 MG-51 MG TABLET PO SCH (06:05)
[2024-10-20] MEDS: PANTOPRAZOLE 40 MG TABLET PO SCH (06:05)
[2024-10-20] MEDS: DAPAGLIFLOZIN PROPANEDIOL 10 MG TABLET PO SCH (06:05)
[2024-10-20] MEDS: FUROSEMIDE 20 MG TAB PO SCH (06:05)
[2024-10-20] MEDS: SPIRONOLACTONE 25 MG TAB PO SCH (06:06)
[2024-10-20] MEDS: TAMSULOSIN 0.4 MG CAP.ER.24H PO SCH (06:06)
[2024-10-20] MEDS: APIXABAN 5 MG TAB PO SCH (06:06)
[2024-10-20 06:56] LABS: Basophils # (A) 0.06 10*3/uL (0.00-0.10); Basophils % (A) 0.7 %; Eosinophils # (A) 0.21 10*3/uL (0.04-0.35); Eosinophils % (A) 2.4 %; HCT 44.1 % (39.6-50.0); HGB 14.4 g/dL (13.0-17.0); Lymphocytes # (A) 3.40 10*3/uL (0.90-5.00); Lymphocytes % (A) 38.1 %; MCH 28.2 pg (27.0-32.0); MCHC 32.7 g/dL (32.0-37.0); MCV 86.5 fL (80.0-97.0); Monocytes # (A) 0.72 10*3/uL (0.20-1.00); Monocytes % (A) 8.1 %; Neutrophils # (A) 4.51 10*3/uL (1.80-7.70); Neutrophils % (A) 50.5 %; Platelet Count 410 10*3/uL (140-440); RBC 5.10 10*6/uL (4.40-5.60); RDW 14.7 % (11.5-14.5); WBC 8.92 10*3/uL (4.50-10.00)
[2024-10-20] MEDS ORDERED: NON FORMULARY DRUG (Fluticasone/Umeclidin/Vilanter [Trelegy Ellipta 100-62.5-25] 1 EACH Bl INHALATION SCH (07:00)
[2024-10-20 08:31] LABS: ALT 21 U/L (4-49); AST 29 U/L (17-59); African American GFR (CKD) 82 (>60 ml/min/1.73 sqM); Albumin 3.7 g/dL (3.5-5.0); Alkaline Phosphatase 124 U/L (38-126); Anion Gap 10 mmol/L; Blood Urea Nitrogen 22 mg/dL (9-20); Calcium 9.3 mg/dL (8.4-10.2); Carbon Dioxide 21 mmol/L (22-30); Chloride 105 mmol/L (98-107); Glucose 94 mg/dL (74-99); Non-African American GFR(CKD) 71 (>60 ml/min/1.73 sqM); Potassium 3.8 mmol/L (3.5-5.1); Sodium 136 mmol/L (137-145); Total Protein 6.5 g/dL (6.3-8.2)
[2024-10-20] MEDS: SYMBICORT 160-4.5 MCG INHALER INHALATION SCH (09:15)
[2024-10-20] MEDS: ALBUTEROL NEBULIZED 2.5 MG/3 ML INHALATION SCH (09:15)
[2024-10-20] MEDS: TIOTROPIUM 2.5 MCG INHALER INHALATION SCH (09:15)
--- NOTE | 2024-10-20 10:15 | P.CRDCN ---
History of Present Illness History of present illness: HISTORY OF PRESENT ILLNESS: This is a 74-year-old male with a past medical history significant for coronary artery disease with previous stenting, ischemic cardiomyopathy, AICD implantati on, ventricular arrhythmia, paroxysmal atrial fibrillation, hypertension, hyperlipidemia, asthma, and COPD. Patient used to follow in the office with Dr. Monsalve but now follows with Dr. More. We have been asked to see the patient in consultation for chest pain. Patient examined at the bedside. Patient states for the past 3 days he has been feeling short of breath and having a cough. He reports that he is coughing nonstop. He states that he does have a productive cough however he is having a hard time bringing it up and it ends up making him gag. He reports the pain occurs when he is coughing. He also reports the pain is worse with deep breathing. He states taking deep breaths exacerbates the cough and then subsequently develops pain in the chest. He denies any nausea or vomiting. He does report feeling diaphoretic at home. He also reports that he has felt dizzy and unsteady when he has been walking and feels as though he is losing his balance. DIAGNOSTICS: - EKG reveals sinus mechanism with PACs and PVCs. - Chest xray negative for acute process. - Laboratory data: Troponin negative x 3 - Current home cardiac medications include Aldactone 12.5 mg daily, Entresto 49- 41 mg twice a day, Lasix 20 mg daily, Farxiga 10 mg daily, Eliquis 5 mg twice a day. - Most recent echocardiogram obtained in October 2023 reveals ejection fraction 30 to 35%, global hypokinesis, mild MR, mild TR. - Cardiac catheterization history: September 2021 with stenting of proximal RCA and PTCA of mid stent restenotic lesion with high-pressure noncompliant balloon REVIEW OF SYSTEMS: At the time of my exam: CONSTITUTIONAL: Denies fever or chills. HEENT: Denies blurred vision, vision changes, or eye pain. Denies hemoptysis CARDIOVASCULAR: Denies chest pain. Denies orthopnea. Denies PND. Denies palp itations RESPIRATORY: Denies shortness of breath. GASTROINTESTINAL: Denies abdominal pain. Denies nausea or vomiting. HEMATOLOGIC: Denies bleeding disorders. GENITOURINARY: Denies any blood in urine. SKIN: Denies pruitis. Denies rash. PHYSICAL EXAM: VITAL SIGNS: Reviewed. GENERAL: Well-developed in no acute distress. HEENT: Head is normocephalic. Pupils are equal, round. Sclerae anicteric. Mucous membranes of the mouth are moist. Neck supple. No JVD or thyromegaly LUNGS: Respirations even and unlabored. Lungs essentially clear to auscultation bilaterally; frequent coughing noted HEART: Regular rate and rhythm. S1 and S2 heard. ABDOMEN: Soft. Nondistended. Nontender. EXTREMITIES: Normal range of motion. No clubbing or cyanosis. Peripheral pulses intact. No lower extremity edema NEUROLOGIC: Awake and alert. Oriented x 3. ASSESSMENT: Shortness of breath with cough, suspect asthma/COPD exacerbation Chest pain, noncardiac, respirophasic, troponin negative x 3 Coronary artery disease with previous stenting Ischemic cardiomyopathy, 30 to 35% History of AICD implantation History of ventricular arrhythmia, maintained on amiodarone Paroxysmal atrial fibrillation Hypertension Hyperlipidemia PLAN: An acute coronary event has been ruled out Obtain 2D echo to assess cardiac structure and function Resume home cardiac medications Consult pulmonary for evaluation No plans for stress testing or cardiac catheterization at this time Further recommendations pending patient course Nurse practitioner note has been reviewed by physician. Signing provider agrees with the documented findings, assessment, and plan of care documented by CAR WORKER as a scribe. 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 Stovall, gout bilateral feet, occasional numbness L leg/L great toe, diverticulitis/diverticulosis hx of PHIL with CPAP but no longer an issue since wt. 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 History of Any Multi-Drug Resistant Organisms: None Reported Past Surgical History: AICD, Cholecystectomy, Heart Catheterization, Heart Catheterization With Stent, Hernia Repair, Pacemaker, Tonsillectomy Additional Past Surgical History / Comment(s): 07/24/14 EGD/colonoscopy with polypectomy/bx, 2005 AICD/2014 AICD changed to medtronic, 2002 Cardiac stent in [place], 2007 cardiac cath [facility], upper teeth extracted for denture, L ear has tube, R ear plugged, cyst removed L eyelid, bilateral cataract removal, L ganglion cyst removal, L/R inguinal hernia repairs with mesh, penile implant. Past Anesthesia/Blood Transfusion Reactions: No Reported Reaction Date of Last Stent Placement:: 2002 Type of Cardiac Device: AICD Device Placement Date:: 2014 Past Psychological History: Anxiety, Depression Additional Psychological History / Comment(s): Pt lives alone in an apartment. pt has a cane but doesnt use it. He does not own a vehicle so he uses [facility] to get to appointments. He has a medication dispenser thru [facility]. Smoking Status: Former smoker Past Alcohol Use History: None Reported Additional Past Alcohol Use History / Comment(s): Pt started smoking an occasional cigar a few years ago. Past Drug Use History: None Reported - Past Family History Father Family Medical History: Coronary Artery Disease (CAD), Pneumonia Additional Family Medical History / Comment(s): Father of pneumonia at the age of 82 yrs. Mother Family Medical History: Liver Disease, Renal Disease Additional Family Medical History / Comment(s): father passed after a bout with pneumonia Medications and Allergies Home Medications Medication Instructions Recorded Confirmed Type Mirtazapine 45 mg PO HS@1900 04/01/14 10/19/24 History QUEtiapine [SEROquel] 200 mg PO BID@0700,1900 04/01/14 10/19/24 History Montelukast [Singulair] 10 mg PO HS@1900 07/20/14 10/19/24 History Apixaban [Eliquis] 5 mg PO BID@0700,1900 06/02/20 10/19/24 History Albuterol Inhaler [Ventolin Hfa 2 puff INHALATION RT-QID 05/29/21 10/19/24 History Inhaler] Pantoprazole [Protonix] 40 mg PO DAILY@0700 05/31/22 10/19/24 History Fluticasone/Umeclidin/Vilanter 1 puff INHALATION RT-DAILY@0700 09/03/22 10/19/24 History [Trelegy Ellipta 100-62.5-25] Atorvastatin [Lipitor] 40 mg PO HS@1900 10/26/24 07/28/25 History Sacubitril/Valsartan [Entresto 49 1 tab PO BID@0700,1900 01/18/24 10/19/24 History mg-51 mg Tablet] Cefdinir [Omnicef] 300 mg PO DIRECTED 10/19/24 10/19/24 History Dapagliflozin Propanediol [Farxiga] 10 mg PO DAILY@69910/19/24 10/19/24 History Furosemide [Lasix] 20 mg PO DAILY@69910/19/24 10/19/24 History Spironolactone [Aldactone] 12.5 mg PO DAILY@69910/19/24 10/19/24 History Tamsulosin [Flomax] 0.4 mg PO BID@0700,189910/19/24 10/19/24 History methylPREDNISolone [Medrol Dose See Taper PO DIRECTED 10/19/24 10/19/24 History Pack] Allergies Allergy/AdvReac Type Severity Reaction Status Date / Time Barbiturates Allergy Anaphylaxis Verified 10/19/24 12:27 doxepin Allergy Anaphylaxis Verified 10/19/24 12:27 Latex, Natural Rubber Allergy Unknown Verified 10/19/24 12:27 levofloxacin [From Levaquin] Allergy Dyspnea & Verified 10/19/24 12:27 Leg Swelling and Pain & Headache Physical Exam Vitals: Vital Signs Temp Pulse Pulse Resp BP BP BP 10/20/24 09:28 61 10/20/24 09:17 74 10/20/24 07:57 98.1 F 46 L 18 101/54 10/20/24 01:33 98.1 F 68 16 108/71 10/19/24 22:58 97.8 F 82 18 169/69 10/19/24 22:45 98 F 74 18 108/78 10/19/24 21:47 98.2 F 86 18 110/78 10/19/24 18:37 89 18 129/70 10/19/24 15:35 68 16 109/78 10/19/24 13:21 81 25 H 96/65 10/19/24 11:12 76 20 101/76 10/19/24 10:30 90 18 90/56 Pulse Ox 10/20/24 09:28 10/20/24 09:17 10/20/24 07:57 96 10/20/24 01:33 100 10/19/24 22:58 98 10/19/24 22:45 97 10/19/24 21:47 98 10/19/24 18:37 96 10/19/24 15:35 94 L 10/19/24 13:21 94 L 10/19/24 11:12 94 L 10/19/24 10:30 96 Intake and Output 10/19/24 10/20/24 10/20/24 22:59 06:59 14:59 Other: Weight 96.615 kg Results 10/20/24 06:35 10/20/24 06:35 Cardiac Enzymes 10/19/24 10/19/24 10/19/24 Range/Units 10:30 10:30 13:09 AST 19 (17-59) U/L Troponin I <0.012 <0.012 (0.000-0.034) ng/mL 10/19/24 10/20/24 Range/Units 17:19 06:35 AST 29 (17-59) U/L Troponin I 0.012 (0.000-0.034) ng/mL Coagulation 10/19/24 Range/Units 10:30 PT 11.3 (10.0-12.5) sec APTT 31.4 H (22.0-30.0) sec CBC 10/19/24 10/20/24 Range/Units 10:30 06:35 WBC 7.43 8.92 (4.50-10.00) 10*3/uL RBC 5.11 5.10 (4.40-5.60) 10*6/uL Hgb 14.0 14.4 (13.0-17.0) g/dL Hct 43.7 44.1 (39.6-50.0) % Plt Count 417 410 (140-440) 10*3/uL Comprehensive Metabolic Panel 10/19/24 10/20/24 Range/Units 10:30 06:35 Sodium 136 L 136 L (137-145) mmol/L Potassium 4.0 3.8 (3.5-5.1) mmol/L Chloride 102 105 (98-107) mmol/L Carbon Dioxide 20 L 21 L (22-30) mmol/L BUN 20 22 H (9-20) mg/dL Creatinine 1.03 1.04 (0.66-1.25) mg/dL Glucose 104 H 94 (74-99) mg/dL Calcium 9.6 9.3 (8.4-10.2) mg/dL AST 19 29 (17-59) U/L ALT 18 21 (4-49) U/L Alkaline Phosphatase 126 124 (38-126) U/L Total Protein 6.8 6.5 (6.3-8.2) g/dL Albumin 3.9 3.7 (3.5-5.0) g/dL Current Medications Generic Name Dose Route Start Last Admin Trade Name Freq PRN Reason Stop Dose Admin Albuterol Sulfate 2.5 mg 10/20/24 08:00 10/20/24 09:15 Albuterol Nebulized 2.5 Mg/3 Ml INHALATION 2.5 mg RT-QID [facility] Administration Apixaban 5 mg 10/20/24 07:00 10/20/24 06:06 Apixaban 5 Mg Tab PO 5 mg BID@0700,1900 [facility] Administration Protocol Aspirin 81 mg 10/21/24 09:00 Aspirin 81 Mg PO DAILY [facility] Atorvastatin Calcium 40 mg 10/20/24 19:00 Atorvastatin 40 Mg Tab PO HS@1900 [facility] Budesonide/Formoterol Fumarate 2 puff 10/20/24 08:00 10/20/24 09:15 Symbicort 160-4.5 Mcg Inhaler INHALATION 2 puff RT-BID [facility] Administration Dapagliflozin 10 mg 10/20/24 07:00 10/20/24 06:05 Dapagliflozin Propanediol 10 Mg Tablet PO 10 mg DAILY@0700 [facility] Administration Furosemide 20 mg 10/20/24 07:00 10/20/24 06:05 Furosemide 20 Mg Tab PO 20 mg DAILY@0700 [facility] Administration Mirtazapine 45 mg 10/20/24 19:00 Mirtazapine 45 Mg Tablet PO HS@1900 [facility] Montelukast Sodium 10 mg 10/20/24 19:00 Montelukast 10 Mg Tab PO HS@1900 [facility] Nitroglycerin 0.4 mg 10/19/24 13:01 Nitroglycerin Sl Tabs 0.4 Mg Tab SUBLINGUAL Q5M PRN Chest Pain Pantoprazole Sodium 40 mg 10/20/24 07:00 10/20/24 06:05 Pantoprazole 40 Mg Tablet PO 40 mg DAILY@0700 [facility] Administration Quetiapine Fumarate 200 mg 10/20/24 07:00 10/20/24 06:05 Quetiapine 200 Mg Tab PO 200 mg BID@0700,1900 [facility] Administration Sacubitril/Valsartan 1 each 10/20/24 07:00 10/20/24 06:05 Sacubitril/Valsartan 49 Mg-51 Mg Tablet PO 1 each BID@0700,1900 [facility] Administration Spironolactone 12.5 mg 10/20/24 07:00 10/20/24 06:06 Spironolactone 25 Mg Tab PO 12.5 mg DAILY@0700 [facility] Administration Tamsulosin HCl 0.4 mg 10/20/24 07:00 10/20/24 06:06 Tamsulosin 0.4 Mg Cap.Er.24h PO 0.4 mg BID@0700,190 [facility] Administration Tiotropium [place] 2 puff 10/20/24 08:00 10/20/24 09:15 Tiotropium 2.5 Mcg Inhaler INHALATION 2 puff RT-DAILY [facility] Administration Intake and Output 10/19/24 10/20/24 10/20/24 22:59 06:59 14:59 Other: Weight 96.615 kg 10/20/24 06:35 10/20/24 06:35
[2024-10-20 10:22] LABS: Cholesterol 178.00 mg/dL (0.00-200.00); HDL Cholesterol 39.20 mg/dL (40.00-60.00); LDL Cholesterol,Calculated 115.2 mg/dL (0.0-131.0); Triglycerides 118.00 mg/dL (0.00-149.00); VLDL Calculation 23.60 mg/dL (5.00-40.00)
--- NOTE | 2024-10-20 12:41 | P.HPIM ---
History of Present Illness H&P Date: 10/19/24 Rayray Stewart, is a 74-year-old male who presented to [facility] emergency room with a chief complaint of chest pain He was evaluated in the emergency room vital examination on presentation revealed a temperature of 98.2 pulse 92 respiration 20 blood pressure 117/94 pulse ox 95% on room air Laboratory data reveals a white blood count of 7.43 hemoglobin 14.0 platelet count 417 BUN 20 creatinine 1.03 troponin level 0.012 BNP 29 Testing in the emergency room revealed EKG revealed sinus rhythm with frequent ventricular premature complexes and left anterior fascicular block, chest x-ray revealed no evidence for acute pulmonary disease Patient was admitted to medical floor for further evaluation and treatment Past Medical History Past Medical History: Atrial Fibrillation, Asthma, Coronary Artery Disease (CAD), Heart Failure, COPD, CVA/TIA, GERD/Reflux, Hearing Disorder / Deafness, Hyperlipidemia, Hypertension, Pneumonia Additional Past Medical History / Comment(s): Benign polyps removed, PVC's, cardiomyopathy, 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 Stovall, gout bilateral feet, occasional numbness L leg/L great toe, diverticulitis/diverticulosis hx of PHIL with CPAP but no longer an issue since wt. 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 History of Any Multi-Drug Resistant Organisms: None Reported Past Surgical History: AICD, Cholecystectomy, Heart Catheterization, Heart Catheterization With Stent, Hernia Repair, Pacemaker, Tonsillectomy Additional Past Surgical History / Comment(s): 07/24/14 EGD/colonoscopy with polypectomy/bx, 2005D/2014 AICD changed to medtronic, 2002 Cardiac stent in [place], 2007 cardiac cath [facility], upper teeth extracted for denture, L ear has tube, R ear plugged, cyst removed L eyelid, bilateral cataract removal, L ganglion cyst removal, L/R inguinal hernia repairs with mesh, penile implant. Past Anesthesia/Blood Transfusion Reactions: No Reported Reaction Date of Last Stent Placement:: 2002 Type of Cardiac Device: AICD Device Placement Date:: 2014 Past Psychological History: Anxiety, Depression Smoking Status: Former smoker Past Alcohol Use History: None Reported Past Drug Use History: None Reported - Past Family History Father Family Medical History: Coronary Artery Disease (CAD), Pneumonia Additional Family Medical History / Comment(s): Father of pneumonia at the age of 82 yrs. Mother Family Medical History: Liver Disease, Renal Disease Additional Family Medical History / Comment(s): father passed after a bout with pneumonia Medications and Allergies Home Medications Medication Instructions Recorded Confirmed Type Mirtazapine 45 mg PO HS@1900 04/01/14 10/19/24 History QUEtiapine [SEROquel] 200 mg PO BID@0700,19004/01/14 10/19/24 History Montelukast [Singulair] 10 mg PO HS@1900 07/20/14 10/19/24 History Apixaban [Eliquis] 5 mg PO BID@0700,189906/02/20 10/19/24 History Albuterol Inhaler [Ventolin Hfa 2 puff INHALATION RT-QID 05/29/21 10/19/24 History Inhaler] Pantoprazole [Protonix] 40 mg PO DAILY@0705/31/22 10/19/24 History Fluticasone/Umeclidin/Vilanter 1 puff INHALATION RT-DAILY@69909/03/22 10/19/24 History [Trelegy Ellipta 100-62.5-25] Atorvastatin [Lipitor] 40 mg PO HS@189901/18/24 10/19/24 History Sacubitril/Valsartan [Entresto 49 1 tab PO BID@0700,189901/18/24 10/19/24 History mg-51 mg Tablet] Cefdinir [Omnicef] 300 mg PO DIRECTED 10/19/24 10/19/24 History Dapagliflozin Propanediol [Farxiga] 10 mg PO DAILY@69910/19/24 10/19/24 History Furosemide [Lasix] 20 mg PO DAILY@69910/19/24 10/19/24 History Spironolactone [Aldactone] 12.5 mg PO DAILY@69910/19/24 10/19/24 History Tamsulosin [Flomax] 0.4 mg PO BID@0700,19010/19/24 10/19/24 History methylPREDNISolone [Medrol Dose See Taper PO DIRECTED 10/19/24 10/19/24 History Pack] Allergies Allergy/AdvReac Type Severity Reaction Status Date / Time Barbiturates Allergy Anaphylaxis Verified 10/19/24 12:27 doxepin Allergy Anaphylaxis Verified 10/19/24 12:27 Latex, Natural Rubber Allergy Unknown Verified 10/19/24 12:27 levofloxacin [From Levaquin] Allergy Dyspnea & Verified 10/19/24 12:27 Leg Swelling and Pain & Headache Physical Exam Vitals: Vital Signs Temp Pulse Resp BP Pulse Ox 10/19/24 13:21 81 25 H 96/65 94 L 10/19/24 11:12 76 20 101/76 94 L 10/19/24 10:30 90 18 90/56 96 10/19/24 09:52 98.2 F 92 20 117/94 95 Intake and Output 10/19/24 10/19/24 10/19/24 06:59 14:59 22:59 Other: Weight 96.615 kg In general patient is alert and oriented x 3 in no distress HEENT head normocephalic and atraumatic Neck is supple no JVD no goiter no lymphadenopathy no carotid bruit Chest examination is clear to auscultation no crackles no wheezing Cardiac exam reveals regular heart sounds S1 and S2 no gallops no murmurs Abdomen is soft nontender no organomegaly with normal bowel sounds Extremity exam reveals no edema no cyanosis or clubbing Neurological examination reveals no gross focal deficits Results CBC & Chem 7: 10/19/24 10:30 10/19/24 10:30 Labs: Abnormal Lab Results - Last 24 Hours (Table) 10/19/24 10/19/24 10/19/24 Range/Units 10:30 10:30 10:30 MPV 9.2 L (9.5-12.2) fL APTT 31.4 H (22.0-30.0) sec Sodium 136 L (137-145) mmol/L Carbon Dioxide 20 L (22-30) mmol/L Glucose 104 H (74-99) mg/dL Assessment and Plan Plan: Episode of chest pain Underlying history of hypertension Underlying history of hyperlipidemia Underlying history of paroxysmal atrial fibrillation maintained on Eliquis Underlying history of congestive heart failure with cardiomyopathy Underlying history of benign prostatic hypertrophy Underlying history of gastroesophageal reflux disease Underlying history of COPD Underlying history of depression with anxiety disorder At this time patient was admitted to medical floor Home medications reviewed and reordered Serial troponin level ordered Cardiology consultation request Will follow closely
--- NOTE | 2024-10-20 12:45 | P.PN ---
Subjective Progress Note Date: 10/20/24 Rayray Stewart, is a 74-year-old male who presented to [facility] emergency room with a chief complaint of chest pain He was evaluated in the emergency room vital examination on presentation revealed a temperature of 98.2 pulse 92 respiration 20 blood pressure 117/94 pulse ox 95% on room air Laboratory data reveals a white blood count of 7.43 hemoglobin 14.0 platelet count 417 BUN 20 creatinine 1.03 troponin level 0.012 BNP 29 Testing in the emergency room revealed EKG revealed sinus rhythm with frequent ventricular premature complexes and left anterior fascicular block, chest x-ray revealed no evidence for acute pulmonary disease Patient was admitted to medical floor for further evaluation and treatment On 10/20/2024 patient is alert and oriented x 3. Patient still complaining about increased congestion and cough. Patient was evaluated by cardiology services 2D echo has been ordered no further workup per cardiology. At this time we will start patient on Augmentin for sinusitis. COVID-19 and influenza swabs ordered repeat labs for a.m. Patient denies nausea vomiting or diarrhea. Patient denies any urinary burning or frequency Objective - Vital Signs Vital signs: Vital Signs Temp 98.1 F 10/20/24 07:57 Pulse 52 L 10/20/24 12:31 Resp 18 10/20/24 07:57 BP 101/54 10/20/24 07:57 Pulse Ox 96 10/20/24 07:57 FiO2 Intake & Output 10/19/24 10/20/24 10/20/24 18:59 06:59 18:59 Weight 96.615 kg Other: Voiding Method Urinal - Exam In general patient is alert and oriented x 3 in no distress HEENT head normocephalic and atraumatic Neck is supple no JVD no goiter no lymphadenopathy no carotid bruit Chest examination is clear to auscultation no crackles no wheezing Cardiac exam reveals regular heart sounds S1 and S2 no gallops no murmurs Abdomen is soft nontender no organomegaly with normal bowel sounds Extremity exam reveals no edema no cyanosis or clubbing Neurological examination reveals no gross focal deficits - Labs CBC & Chem 7: 10/20/24 06:35 10/20/24 06:35 Labs: Abnormal Lab Results - Last 24 Hours (Table) 10/20/24 10/20/24 Range/Units 06:35 06:35 MPV 9.4 L (9.5-12.2) fL Sodium 136 L (137-145) mmol/L Carbon Dioxide 21 L (22-30) mmol/L BUN 22 H (9-20) mg/dL HDL Cholesterol 39.20 L (40.00-60.00) mg/dL Assessment and Plan Plan: Episode of chest pain Acute sinusitis. Patient started on Augmentin Underlying history of hypertension Underlying history of hyperlipidemia Underlying history of paroxysmal atrial fibrillation maintained on Eliquis Underlying history of congestive heart failure with cardiomyopathy Underlying history of benign prostatic hypertrophy Underlying history of gastroesophageal reflux disease Underlying history of COPD Underlying history of depression with anxiety disorder At this time patient was admitted to medical floor DVT prophylaxis Eliquis. GI prophylax Protonix Home medications reviewed and reordered Serial troponin level ordered Cardiology consultation request Will follow closely
[2024-10-20] MEDS: ASPIRIN 325 MG TAB PO SCH (13:37)
--- NOTE | 2024-10-20 15:13 | P.CNPUL ---
History of Present Illness Consult date: 10/20/24 Requesting physician: Roxanna Patel Reason for consult: asthma Chief complaint: Chest pain, shortness of breath, dizziness History of present illness: This is a 74-year-old male patient with a known history of coronary artery disease with previous stent placement, ischemic cardiomyopathy, AICD placement, atrial fibrillation anticoagulated with Eliquis, hypertension, hyperlipidemia, mild intermittent chronic bronchial asthma, rare cigar smoker. He is maintained on Trelegy, Singulair and albuterol in the outpatient setting. No home oxygen. He follows with Dr. Cedeño. He presented here to the emergency room yesterday with a 2-day history of shortness of breath, chest pain, dizziness and falls. Injuring his right knee. X-ray revealed no fracture. Chest x-ray revealed no acute pulmonary process. EKG revealed atrial fibrillation with a controlled ventricular rate. White count 8.9. Hemoglobin 14.4. Platelets 410. Sodium 136. Potassium 3.8. Bicarb 21. BUN 22. Creatinine 1.04. Glucose 94. He is seen today in consultation in the observation department. He is currently sit ting up in bed. Awake and alert in no acute distress. Maintaining O2 saturations up to 100% on room air. Has been afebrile. Hemodynamically stable. Review of Systems REVIEW OF SYSTEMS: CONSTITUTIONAL: Denies any recent significant weight loss or weight gain. EYES: Denies change in vision. EARS, NOSE, MOUTH, THROAT: Denies headaches, denies sore throat. CARDIOVASCULAR: Positive for chest pain, palpitations and near syncopal episodes. RESPIRATORY: Positive for shortness of breath, no cough, congestion or hemoptysis. GASTROINTESTINAL: Denies change in appetite, denies abdominal pain GENITOURINARY: Denies hematuria, denies infections. MUSKULOSKELETAL: Positive for right knee pain, denies swelling. INTEGUMENTARY: Denies rash, denies eczema. NEUROLOGICAL: Denies recent memory loss, no recent seizure activity. PSYCHIATRIC: Denies anxiety, denies depression. HEMATOLOGIC/LYMPHATIC: Denies anemia, denies enlarged lymph nodes. 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 Stovall, gout bilateral feet, occasional numbness L leg/L great toe, diverticulitis/diverticulosis hx of PHIL with CPAP but no longer an issue since wt. 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 History of Any Multi-Drug Resistant Organisms: None Reported Past Surgical History: AICD, Cholecystectomy, Heart Catheterization, Heart Catheterization With Stent, Hernia Repair, Pacemaker, Tonsillectomy Additional Past Surgical History / Comment(s): 07/24/14 EGD/colonoscopy with polypectomy/bx, 2005 AICD/2014 AICD changed to medtronic, 2002 Cardiac stent in [place], 2007 cardiac cath [facility], upper teeth extracted for denture, L ear has tube, R ear plugged, cyst removed L eyelid, bilateral cataract removal, L ganglion cyst removal, L/R inguinal hernia repairs with mesh, penile implant. Past Anesthesia/Blood Transfusion Reactions: No Reported Reaction Date of Last Stent Placement:: 2002 Type of Cardiac Device: AICD Device Placement Date:: 2014 Past Psychological History: Anxiety, Depression Smoking Status: Former smoker Past Alcohol Use History: None Reported Past Drug Use History: None Reported - Past Family History Father Family Medical History: Coronary Artery Disease (CAD), Pneumonia Additional Family Medical History / Comment(s): Father of pneumonia at the age of 82 yrs. Mother Family Medical History: Liver Disease, Renal Disease Additional Family Medical History / Comment(s): father passed after a bout with pneumonia Medications and Allergies Home Medications Medication Instructions Recorded Confirmed Type Mirtazapine 45 mg PO HS@1900 04/01/14 10/19/24 History QUEtiapine [SEROquel] 200 mg PO BID@0700,1900 04/01/14 10/19/24 History Montelukast [Singulair] 10 mg PO HS@1900 07/20/14 10/19/24 History Apixaban [Eliquis] 5 mg PO BID@0700,1900 06/02/20 10/19/24 History Albuterol Inhaler [Ventolin Hfa 2 puff INHALATION RT-QID 05/29/21 10/19/24 History Inhaler] Pantoprazole [Protonix] 40 mg PO DAILY@69905/31/22 10/19/24 History Fluticasone/Umeclidin/Vilanter 1 puff INHALATION RT-DAILY@69909/03/22 10/19/24 History [Shireen Ellipta 100-62.5-25] Atorvastatin [Lipitor] 40 mg PO HS@19001/18/24 10/19/24 History Sacubitril/Valsartan [Entresto 49 1 tab PO BID@0700,19001/18/24 10/19/24 History mg-51 mg Tablet] Cefdinir [Omnicef] 300 mg PO DIRECTED 10/19/24 10/19/24 History Dapagliflozin Propanediol [Farxiga] 10 mg PO DAILY@69910/19/24 10/19/24 History Furosemide [Lasix] 20 mg PO DAILY@69910/19/24 10/19/24 History Spironolactone [Aldactone] 12.5 mg PO DAILY@69910/19/24 10/19/24 History Tamsulosin [Flomax] 0.4 mg PO BID@0700,1900 10/19/24 10/19/24 History methylPREDNISolone [Medrol Dose See Taper PO DIRECTED 10/19/24 10/19/24 History Pack] Allergies Allergy/AdvReac Type Severity Reaction Status Date / Time Barbiturates Allergy Anaphylaxis Verified 10/19/24 12:27 doxepin Allergy Anaphylaxis Verified 10/19/24 12:27 Latex, Natural Rubber Allergy Unknown Verified 10/19/24 12:27 levofloxacin [From Levaquin] Allergy Dyspnea & Verified 10/19/24 12:27 Leg Swelling and Pain & Headache Physical Exam Vitals: Vital Signs Temp Pulse Pulse Resp BP BP BP 10/20/24 12:31 52 L 10/20/24 12:20 64 10/20/24 09:28 61 10/20/24 09:17 74 10/20/24 07:57 98.1 F 46 L 18 101/54 10/20/24 01:33 98.1 F 68 16 108/71 10/19/24 22:58 97.8 F 82 18 169/69 10/19/24 22:45 98 F 74 18 108/78 10/19/24 21:47 98.2 F 86 18 110/78 10/19/24 18:37 89 18 129/70 10/19/24 15:35 68 16 109/78 Pulse Ox 10/20/24 12:31 10/20/24 12:20 10/20/24 09:28 10/20/24 09:17 10/20/24 07:57 96 10/20/24 01:33 100 10/19/24 22:58 98 10/19/24 22:45 97 10/19/24 21:47 98 10/19/24 18:37 96 10/19/24 15:35 94 L Intake and Output 10/20/24 10/20/24 10/20/24 06:59 14:59 22:59 Other: Voiding Method Urinal GENERAL EXAM: Alert, active, 74-year-old male, on room air, comfortable in no apparent distress. HEAD: Normocephalic. EYES: Normal reaction of pupils, equal size. NOSE: Clear with pink turbinates. THROAT: No erythema or exudates. NECK: No masses, no JVD. CHEST: No chest wall deformity. LUNGS: Equal air entry with no crackles, wheeze, rhonchi or dullness. CVS: S1 and S2 normal with no audible murmur, irregular rhythm. ABDOMEN: No hepatosplenomegaly, normal bowel sounds, no guarding or rigidity. SPINE: No scoliosis or deformity SKIN: No rashes CENTRAL NERVOUS SYSTEM: No focal deficits, tone is normal in all 4 extremities. EXTREMITIES: There is no peripheral edema. No clubbing, no cyanosis. Peripheral pulses are intact. Results - Laboratory Findings CBC and BMP: 10/20/24 06:35 10/20/24 06:35 PT/INR, D-dimer PT 11.3 sec (10.0-12.5) 10/19/24 10:30 INR 1.0 (<1.2) 10/19/24 10:30 Abnormal lab findings: Abnormal Labs 10/19/24 10/19/24 10/19/24 10:30 10:30 10:30 MPV 9.2 L APTT 31.4 H Sodium 136 L Carbon Dioxide 20 L BUN Glucose 104 H HDL Cholesterol 10/20/24 10/20/24 06:35 06:35 MPV 9.4 L APTT Sodium 136 L Carbon Dioxide 21 L BUN 22 H Glucose HDL Cholesterol 39.20 L - Diagnostic Findings Chest x-ray: image reviewed Assessment and Plan Assessment: Chest pain, shortness of breath, dizziness and fall injuring right knee. No fracture on x-ray Coronary syndrome ruled out Atrial fibrillation anticoagulated with Eliquis Ischemic cardiomyopathy AICD placement Coronary disease with previous stent placement Mild intermittent chronic bronchial asthma Rare cigar smoker Hypertension Hyperlipidemia Hearing disorder History of CVA/TIA History of iron deficiency anemia History of gout Plan: The patient was seen and evaluated Chest x-ray, labs and medications reviewed EKG reviewed No acute pulmonary process Initiated on Symbicort, Spiriva Check a procalcitonin Cardiology consult Remains on oral diuretics Resume Singulair Resume home medications Currently stable and on room air We will continue to follow and make further recommendations based on his clinical status I have personally seen and examined the patient, performed the documentation and the assessment and plan as written. Number of minutes spent on the visit: 20 Dictation was produced using [employer] dictation software. Please excuse any gr ammatical, word or spelling errors.
[2024-10-20 16:26] LABS: RSV Not Detected (Not Detectd)
[2024-10-20 19:40] VITALS: RESP 16
[2024-10-20] MEDS: MONTELUKAST 10 MG TAB PO SCH (19:55)
[2024-10-20] MEDS: ATORVASTATIN 40 MG TAB PO SCH (19:55)
[2024-10-20] MEDS: MIRTAZAPINE 45 MG TABLET PO SCH (19:56)
[2024-10-20] MEDS: AMOXIC-POT CLAV 500-125 MG 1 EACH TAB PO SCH (19:57)
--- NOTE | 2024-10-21 07:41 | CA ---
Transthoracic Echo Report Name: Rayray Stewart Age: 74 Gender: M : 1950 Exam Date: 10/20/2024 13:41 Exam Location: [facility] Ht (in): 74 Wt (lb): 213 Ordering Physician: Jessica Steele Attending/Referring Phys: [id number], Cedric Pace Analyst Jean Claude Blanco RDCS Procedure CPT: Indications: sob Cardiac Hx: Technical Quality: Fair Contrast 1: Definity Total Dose (mL): 2 Contrast 2: Total Dose (mL): MEASUREMENTS (Male / Female) Normal Values 2D ECHO LV Diastolic Diameter PLAX 5.3 cm 4.2 - 5.9 / 3.9 - 5.3 cm LV Systolic Diameter PLAX 4.3 cm IVS Diastolic Thickness 1.1 cm 0.6 - 1.0 / 0.6 - 0.9 cm LVPW Diastolic Thickness 1.0 cm 0.6 - 1.0 / 0.6 - 0.9 cm LV Relative Wall Thickness 0.4 RV Internal Dim ED PLAX 3.2 cm LVOT Diameter 2.8 cm Aortic Root Diameter 4.3 cm LA Systolic Diameter LX 4.0 cm 3.0 - 4.0 / 2.7 - 3.8 cm LV Diastolic Volume MOD BP 136.3 cm??? 67 - 155 / 56 - 104 cm??? LV Systolic Volume MOD BP 105.3 cm??? 22 - 58 / 19 - 49 cm??? LV Ejection Fraction MOD BP 22.7 % >= 55 % LV Cardiac Index MOD BP 1342.0 cm???/min???m??? LV Diastolic Volume MOD 4C 136.0 cm??? LV Systolic Volume MOD 4C 111.0 cm??? LV Ejection Fraction MOD 4C 18.4 % LV Cardiac Index MOD 4C 1085.2 cm???/min???m??? LV Diastolic Length 4C 8.2 cm LV Systolic Length 4C 7.5 cm LV Diastolic Volume MOD 2C 118.2 cm??? LV Systolic Volume MOD 2C 92.9 cm??? LV Ejection Fraction MOD 2C 21.4 % LV Cardiac Index MOD 2C 1097.4 cm???/min???m??? LV Diastolic Length 2C 7.0 cm LV Systolic Length 2C 6.9 cm LA Volume 66.1 cm??? 18 - 58 / 22 - 52 cm??? LA Volume Index 29.3 cm???/m??? 16 - 28 cm???/m??? Ascending Aorta Diameter 3.2 cm Aorta at Sinuses Diameter 3.7 cm DOPPLER AV Peak Velocity 125.0 cm/s AV Peak Gradient 6.3 mmHg AV Mean Velocity 86.8 cm/s AV Mean Gradient 3.4 mmHg AV Velocity Time Integral 20.6 cm AI Peak Velocity 395.2 cm/s AI Peak Gradient 62.5 mmHg AI Pressure Half Time 830.9 ms LVOT Peak Velocity 54.1 cm/s LVOT Peak Gradient 1.2 mmHg LVOT Velocity Time Integral 7.0 cm LVOT Stroke Volume 42.3 cm??? LVOT Stroke Volume Index 18.9 ml/m??? LVOT Cardiac Index 1833.7 cm???/min???m??? AV Area Cont Eq vti 2.1 cm??? AV Area Cont Eq pk 2.6 cm??? MV Area PHT 2.5 cm??? Mitral E Point Velocity 37.9 cm/s Mitral A Point Velocity 70.6 cm/s Mitral E to A Ratio 0.5 MV Deceleration Time 298.3 ms TR Peak Velocity 268.0 cm/s TR Peak Gradient 28.7 mmHg FINDINGS Left Ventricle Left ventricular ejection fraction is estimated at 20-25 %. Severe global hypokinesis.left ventricular cavity size normal. Right Ventricle Normal right ventricular size. Reduced right ventricular global systolic function. A wire is noted in the right ventricle Right Atrium Normal right atrial size. No right atrial thrombus or mass seen. Left Atrium Mildly increased left atrial volume. No left atrial thrombus or mass present. Mitral Valve No mitral stenosis. Mild mitral regurgitation.mitral annular calcification. Aortic Valve Trileaflet aortic valve. No aortic stenosis. Mild aortic regurgitation.aortic valve sclerosis. Tricuspid Valve No tricuspid stenosis. Mild tricuspid regurgitation. Pulmonic Valve No pulmonic stenosis. Mild pulmonic regurgitation. Pericardium Normal pericardium. No pericardial or pleural effusion. Aorta Aorta at upper limits of normal 3.7cm. CONCLUSIONS 1. Severe global hypokinesis of the left ventricle 2. Mitral and tricuspid regurgitation 3. Mild aortic regurgitation 4. A wire is noted in the right ventricle Definity ECHO contrast used for improved visualization of the endocardial borders (inadequate visualization of two or more contiguous segments). Previewed by: Dr. Andrew Skinner MD (Electronically Signed) Final Date: 21 October 2024 07:40
[2024-10-21 07:50] LABS: Basophils # (A) 0.06 10*3/uL (0.00-0.10); Basophils % (A) 0.9 %; Eosinophils # (A) 0.18 10*3/uL (0.04-0.35); Eosinophils % (A) 2.6 %; HCT 44.5 % (39.6-50.0); HGB 14.5 g/dL (13.0-17.0); Lymphocytes # (A) 3.23 10*3/uL (0.90-5.00); Lymphocytes % (A) 46.1 %; MCH 28.4 pg (27.0-32.0); MCHC 32.6 g/dL (32.0-37.0); MCV 87.3 fL (80.0-97.0); Monocytes # (A) 0.54 10*3/uL (0.20-1.00); Monocytes % (A) 7.7 %; Neutrophils # (A) 2.97 10*3/uL (1.80-7.70); Neutrophils % (A) 42.4 %; Platelet Count 348 10*3/uL (140-440); RBC 5.10 10*6/uL (4.40-5.60); RDW 14.7 % (11.5-14.5); WBC 7.00 10*3/uL (4.50-10.00)
[2024-10-21 08:17] LABS: ALT 19 U/L (4-49); AST 24 U/L (17-59); African American GFR (CKD) >90 (>60 ml/min/1.73 sqM); Albumin 3.7 g/dL (3.5-5.0); Alkaline Phosphatase 106 U/L (38-126); Anion Gap 10 mmol/L; Blood Urea Nitrogen 16 mg/dL (9-20); Calcium 9.4 mg/dL (8.4-10.2); Carbon Dioxide 22 mmol/L (22-30); Chloride 104 mmol/L (98-107); Glucose 112 mg/dL (74-99); Non-African American GFR(CKD) 88 (>60 ml/min/1.73 sqM); Potassium 3.4 mmol/L (3.5-5.1); Sodium 136 mmol/L (137-145); Total Protein 6.5 g/dL (6.3-8.2)
[2024-10-21] MEDS: ASPIRIN 81 MG PO SCH (08:27)
[2024-10-21 10:06] VITALS: BP 122/66; TEMP 97.6
--- NOTE | 2024-10-21 11:00 | P.PN ---
Subjective HISTORY OF PRESENT ILLNESS: This is a 74-year-old male with a past medical history significant for coronary artery disease with previous stenting, ischemic cardiomyopathy, AICD implantation, ventricular arrhythmia, paroxysmal atrial fibrillation, hypertension, hyperlipidemia, asthma, and COPD. Patient used to follow in the office with Dr. Monsalve but now follows with Dr. More. We have been asked to see the patient in consultation for chest pain. Patient examined at the bedside. Patient states for the past 3 days he has been feeling short of breath and having a cough. He reports that he is coughing nonstop. He states that he does have a productive cough however he is having a hard time bringing it up and it ends up making him gag. He reports the pain occurs when he is coughing. He also reports the pain is worse with deep breathing. He states taking deep breaths exacerbates the cough and then subsequently develops pain in the chest. He denies any nausea or vomiting. He does report feeling diaphoretic at home. He also reports that he has felt dizzy and unsteady when he has been walking and feels as though he is losing his balance. DIAGNOSTICS: - EKG reveals sinus mechanism with PACs and PVCs. - Chest xray negative for acute process. - Laboratory data: Troponin negative x 3 - Current home cardiac medications include Aldactone 12.5 mg daily, Entresto 49- 41 mg twice a day, Lasix 20 mg daily, Farxiga 10 mg daily, Eliquis 5 mg twice a day. - Most recent echocardiogram obtained in October 2023 reveals ejection fraction 30 to 35%, global hypokinesis, mild MR, mild TR. - Cardiac catheterization history: September 2021 with stenting of proximal RCA and PTCA of mid stent restenotic lesion with high-pressure noncompliant balloon 10/21/2024 Patient examined this morning at bedside. Patient denies any chest pain or pressure. He states his shortness of breath is significantly improved. He also reports improvement in his coughing. Echocardiogram completed revealing ejection fraction 20 to 25%, severe global hypokinesis, mild MR, mild aortic regurgitation, mild tricuspid regurgitation. PHYSICAL EXAM: VITAL SIGNS: Reviewed. GENERAL: Well-developed in no acute distress. HEENT: Head is normocephalic. Pupils are equal, round. Sclerae anicteric. Mucous membranes of the mouth are moist. Neck supple. No JVD or thyromegaly LUNGS: Respirations even and unlabored. Lungs essentially clear to auscultation bilaterally; mild expiratory wheezing HEART: Regular rate and rhythm. S1 and S2 heard. ABDOMEN: Soft. Nondistended. Nontender. EXTREMITIES: Normal range of motion. No clubbing or cyanosis. Peripheral pulses intact. No lower extremity edema NEUROLOGIC: Awake and alert. Oriented x 3. ASSESSMENT: Shortness of breath with cough, suspect asthma/COPD exacerbation, improved Chest pain, noncardiac, respirophasic, troponin negative x 3 Coronary artery disease with previous stenting Ischemic cardiomyopathy, 30 to 35% History of AICD implantation History of ventricular arrhythmia, maintained on amiodarone Paroxysmal atrial fibrillation Hypertension Hyperlipidemia PLAN: Continue current cardiac medications including Eliquis, aspirin, Lipitor, Farxiga, Lasix, Entresto, Aldactone No plans for stress testing or cardiac catheterization at this time Patient is stable for discharge today from a cardiac standpoint We will sign off. Please reconsult if needed. Nurse practitioner note has been reviewed by physician. Signing provider agrees with the documented findings, assessment, and plan of care documented by SOFTWARE DATABASE ARCHITECT as a scribe. Objective - Vital Signs Vital signs: Vital Signs Temp 97.6 F 10/21/24 07:00 Pulse 68 10/21/24 08:18 Resp 16 10/21/24 07:00 BP 122/66 10/21/24 07:00 Pulse Ox 95 10/21/24 07:00 FiO2 Intake & Output 10/20/24 10/21/24 10/21/24 18:59 06:59 18:59 Intake Total 250 Balance 250 Intake: Oral 250 Other: Voiding Method Urinal # Voids 0 1 - Labs CBC & Chem 7: 10/21/24 07:40 10/21/24 07:40 Labs: Abnormal Lab Results - Last 24 Hours (Table) 10/21/24 10/21/24 Range/Units 07:40 07:40 MPV 9.3 L (9.5-12.2) fL Sodium 136 L (137-145) mmol/L Potassium 3.4 L (3.5-5.1) mmol/L Glucose 112 H (74-99) mg/dL
--- NOTE | 2024-10-21 11:12 | P.PN ---
Subjective Progress Note Date: 10/21/24 This is a 74-year-old male patient with a known history of coronary artery disease with previous stent placement, ischemic cardiomyopathy, AICD placement, atrial fibrillation anticoagulated with Eliquis, hypertension, hyperlipidemia, mild intermittent chronic bronchial asthma, rare cigar smoker. He is maintained on Trelegy, Singulair and albuterol in the outpatient setting. No home oxygen. He follows with Dr. Cedeño. He presented here to the emergency room yesterday with a 2-day history of shortness of breath, chest pain, dizziness and falls. Injuring his right knee. X-ray revealed no fracture. Chest x-ray revealed no acute pulmonary process. EKG revealed atrial fibrillation with a controlled ventricular rate. White count 8.9. Hemoglobin 14.4. Platelets 410. Sodium 136. Potassium 3.8. Bicarb 21. BUN 22. Creatinine 1.04. Glucose 94. He is seen today in consultation in the observation department. He is currently sitting up in bed. Awake and alert in no acute distress. Maintaining O2 saturations up to 100% on room air. Has been afebrile. Hemodynamically stable. The patient is seen today October 21, 2024 in follow-up on the observation unit. He is currently sitting up in bed. Awake and alert in no acute distress. Maintaining good O2 saturations in the 90s on room air oxygen. He has been afebrile. Hemodynamically stable. Echocardiogram reveals severely impaired left ventricular systolic function with an ejection fraction of 20 to 25%. Severe global hypokinesia. White count 7.0. Hemoglobin 14.5. Platelets 348. Sodium 136. Potassium 3.4. Bicarb 22. BUN 16. Creatinine 0.81. Glucose 112. Procalcitonin negative at 0.12. Viral screen was negative. Remains on Symbicort and Spiriva. Continued on empiric antibiotics in the form of Augmentin. Eliquis for anticoagulation. Remains on oral diuretics. Objective - Vital Signs Vital signs: Vital Signs Temp 97.6 F 10/21/24 07:00 Pulse 68 10/21/24 08:18 Resp 16 10/21/24 07:00 BP 122/66 10/21/24 07:00 Pulse Ox 95 10/21/24 07:00 FiO2 Intake & Output 10/20/24 10/21/24 10/21/24 18:59 06:59 18:59 Intake Total 250 Balance 250 Intake: Oral 250 Other: Voiding Method Urinal # Voids 0 1 - Exam GENERAL EXAM: Alert, pleasant 74-year-old male, sitting up in bed, on room air, comfortable in no apparent distress. HEAD: Normocephalic. EYES: Normal reaction of pupils, equal size. NOSE: Clear with pink turbinates. THROAT: No erythema or exudates. NECK: No masses, no JVD. CHEST: No chest wall deformity. LUNGS: Equal air entry with no crackles, wheeze, rhonchi or dullness. CVS: S1 and S2 normal with no audible murmur, irregular rhythm. ABDOMEN: No hepatosplenomegaly, normal bowel sounds, no guarding or rigidity. SPINE: No scoliosis or deformity SKIN: No rashes CENTRAL NERVOUS SYSTEM: No focal deficits, tone is normal in all 4 extremities. EXTREMITIES: There is no peripheral edema. No clubbing, no cyanosis. Peripheral pulses are intact. - Labs CBC & Chem 7: 10/21/24 07:40 10/21/24 07:40 Labs: Abnormal Lab Results - Last 24 Hours (Table) 10/21/24 10/21/24 Range/Units 07:40 07:40 MPV 9.3 L (9.5-12.2) fL Sodium 136 L (137-145) mmol/L Potassium 3.4 L (3.5-5.1) mmol/L Glucose 112 H (74-99) mg/dL Assessment and Plan Assessment: Chest pain, shortness of breath, dizziness and fall injuring right knee. No fracture on x-ray Acute coronary syndrome ruled out Atrial fibrillation anticoagulated with Eliquis Ischemic cardiomyopathy, with ejection fraction 20 to 25% and severe global hypokinesis AICD placement Coronary disease with previous stent placement Mild intermittent chronic bronchial asthma Rare cigar smoker Hypertension Hyperlipidemia Hearing disorder History of CVA/TIA History of iron deficiency anemia History of gout Plan: The patient was seen and evaluated Echocardiogram, labs and medications reviewed Stable and on room air oxygen Cleared for discharge Procalcitonin negative Antibiotics discontinued Continue his home Trelegy, albuterol Continue Singulair Remains on oral diuretics Follow-up closely with his PCP I have personally seen and examined the patient, performed the documentation and the assessment and plan as written. Number of minutes spent on the visit: 10 Dictation was produced using Dragon dictation software. Please excuse any grammatical, word or spelling errors.
[2024-10-21 12:11] VITALS: PULSE 72
--- NOTE | 2024-10-21 13:10 | P.PN ---
Subjective Progress Note Date: 10/21/24 Rayray Stewart, is a 74-year-old male who presented to [facility] emergency room with a chief complaint of chest pain He was evaluated in the emergency room vital examination on presentation revealed a temperature of 98.2 pulse 92 respiration 20 blood pressure 117/94 pulse ox 95% on room air Laboratory data reveals a white blood count of 7.43 hemoglobin 14.0 platelet count 417 BUN 20 creatinine 1.03 troponin level 0.012 BNP 29 Testing in the emergency room revealed EKG revealed sinus rhythm with frequent ventricular premature complexes and left anterior fascicular block, chest x-ray revealed no evidence for acute pulmonary disease Patient was admitted to medical floor for further evaluation and treatment On 10/20/2024 patient is alert and oriented x 3. Patient still complaining about increased congestion and cough. Patient was evaluated by cardiology services 2D echo has been ordered no further workup per cardiology. At this time we will start patient on Augmentin for sinusitis. COVID-19 and influenza swabs ordered repeat labs for a.m. Patient denies nausea vomiting or diarrhea. Patient denies any urinary burning or frequency On 10/21/2024 patient was seen and examined on the medical floor he is alert and oriented x 3 in no apparent distress there is no fever or chills no headache or dizziness no chest pain no shortness of breath no cough no nausea or vomiting no abdominal pain no diarrhea and no urinary symptoms. He was evaluated by pulmonary and cardiology he was cleared for discharge, will follow in the office soon. Objective - Vital Signs Vital signs: Vital Signs Temp 97.7 F 10/21/24 02:00 Pulse 60 10/21/24 06:05 Resp 16 10/21/24 06:05 BP 126/73 10/21/24 06:05 Pulse Ox 97 10/21/24 06:05 FiO2 Intake & Output 10/20/24 10/21/24 10/21/24 18:59 06:59 18:59 Other: Voiding Method Urinal # Voids 0 1 - Exam In general patient is alert and oriented x 3 in no distress HEENT head normocephalic and atraumatic Neck is supple no JVD no goiter no lymphadenopathy no carotid bruit Chest examination is clear to auscultation no crackles no wheezing Cardiac exam reveals regular heart sounds S1 and S2 no gallops no murmurs Abdomen is soft nontender no organomegaly with normal bowel sounds Extremity exam reveals no edema no cyanosis or clubbing Neurological examination reveals no gross focal deficits - Labs CBC & Chem 7: 10/21/24 07:40 10/21/24 07:40 Labs: Abnormal Lab Results - Last 24 Hours (Table) 10/20/24 10/21/24 Range/Units 06:35 07:40 MPV 9.3 L (9.5-12.2) fL Sodium 136 L (137-145) mmol/L Carbon Dioxide 21 L (22-30) mmol/L BUN 22 H (9-20) mg/dL HDL Cholesterol 39.20 L (40.00-60.00) mg/dL Assessment and Plan Plan: Episode of chest pain Acute sinusitis. Patient started on Augmentin Underlying history of hypertension Underlying history of hyperlipidemia Underlying history of paroxysmal atrial fibrillation maintained on Eliquis Underlying history of congestive heart failure with cardiomyopathy Underlying history of benign prostatic hypertrophy Underlying history of gastroesophageal reflux disease Underlying history of COPD Underlying history of depression with anxiety disorder At this time patient was admitted to medical floor DVT prophylaxis Eliquis. GI prophylax Protonix Home medications reviewed and reordered Serial troponin level ordered Cardiology consultation request Will follow closely
--- NOTE | 2024-10-21 13:12 | P.DS ---
Providers Date of admission: 10/19/24 13:05 Expected date of discharge: 10/21/24 Attending physician: Roxanna Patel Consults: 10/20/24 09:12 Consult Physician Routine Consulting Provider: Bettie Cedeño Consult Reason/Comments: SOB, cough, hx of asthma/COPD Do you want consulting provider notified?: Yes Primary care physician: Roxanna Patel [facility] Hospital Course: Diagnosis on discharge: Episode of chest pain Acute sinusitis. Patient started on Augmentin Underlying history of hypertension Underlying history of hyperlipidemia Underlying history of paroxysmal atrial fibrillation maintained on Eliquis Underlying history of congestive heart failure with cardiomyopathy Underlying history of benign prostatic hypertrophy Underlying history of gastroesophageal reflux disease Underlying history of COPD Underlying history of depression with anxiety disorder Hospital course: Rayray Stewart, is a 74-year-old male who presented to [facility] emergency room with a chief complaint of chest pain He was evaluated in the emergency room vital examination on presentation revealed a temperature of 98.2 pulse 92 respiration 20 blood pressure 117/94 pulse ox 95% on room air Laboratory data reveals a white blood count of 7.43 hemoglobin 14.0 platelet count 417 BUN 20 creatinine 1.03 troponin level 0.012 BNP 29 Testing in the emergency room revealed EKG revealed sinus rhythm with frequent ventricular premature complexes and left anterior fascicular block, chest x-ray revealed no evidence for acute pulmonary disease Patient was admitted to medical floor for further evaluation and treatment On 10/20/2024 patient is alert and oriented x 3. Patient still complaining about increased congestion and cough. Patient was evaluated by cardiology services 2D echo has been ordered no further workup per cardiology. At this time we will start patient on Augmentin for sinusitis. COVID-19 and influenza swabs ordered repeat labs for a.m. Patient denies nausea vomiting or diarrhea. Patient denies any urinary burning or frequency On 10/21/2024 patient was seen and examined on the medical floor he is alert and oriented x 3 in no apparent distress there is no fever or chills no headache or dizziness no chest pain no shortness of breath no cough no nausea or vomiting no abdominal pain no diarrhea and no urinary symptoms. He was evaluated by pulmonary and cardiology he was cleared for discharge, will follow in the office soon. Patient Condition at Discharge: Fair Plan - Discharge Summary New Discharge Prescriptions: New Aspirin 81 mg PO DAILY 30 Days #30 tab Continue Mirtazapine 45 mg PO HS@1900 QUEtiapine [SEROquel] 200 mg PO BID@0700,190 Montelukast [Singulair] 10 mg PO HS@1900 Apixaban [Eliquis] 5 mg PO BID@0700,190 Fluticasone/Umeclidin/Vilanter [Trelegy Ellipta 100-62.5-25] 1 puff IN HALATION RT-DAILY@0700 Atorvastatin [Lipitor] 40 mg PO HS@190 Spironolactone [Aldactone] 12.5 mg PO DAILY@07 Dapagliflozin Propanediol [Farxiga] 10 mg PO DAILY@07 Albuterol Inhaler [Ventolin Hfa Inhaler] 2 puff INHALATION RT-QID Pantoprazole [Protonix] 40 mg PO DAILY@07 Sacubitril/Valsartan [Entresto 49 mg-51 mg Tablet] 1 tab PO BID@0700,190 methylPREDNISolone [Medrol Dose Pack] See Taper PO DIRECTED Furosemide [Lasix] 20 mg PO DAILY@07 Tamsulosin [Flomax] 0.4 mg PO BID@0700,190 Discontinued Cefdinir [Omnicef] 300 mg PO DIRECTED Discharge Medication List Mirtazapine 45 mg PO HS@1900 04/01/14 [History] QUEtiapine [SEROquel] 200 mg PO BID@0700,1900 04/01/14 [History] Montelukast [Singulair] 10 mg PO HS@1900 07/20/14 [History] Apixaban [Eliquis] 5 mg PO BID@0700,1900 06/02/20 [History] Albuterol Inhaler [Ventolin Hfa Inhaler] 2 puff INHALATION RT-QID 05/29/21 [History] Pantoprazole [Protonix] 40 mg PO DAILY@0700 05/31/22 [History] Fluticasone/Umeclidin/Vilanter [Trelegy Ellipta 100-62.5-25] 1 puff INHALATION RT-DAILY@0700 09/03/22 [History] Atorvastatin [Lipitor] 40 mg PO HS@1900 01/18/24 [History] Sacubitril/Valsartan [Entresto 49 mg-51 mg Tablet] 1 tab PO BID@0700,1900 01/18/24 [History] Dapagliflozin Propanediol [Farxiga] 10 mg PO DAILY@69910/19/24 [History] Furosemide [Lasix] 20 mg PO DAILY@69910/19/24 [History] Spironolactone [Aldactone] 12.5 mg PO DAILY@69910/19/24 [History] Tamsulosin [Flomax] 0.4 mg PO BID@0700,19010/19/24 [History] methylPREDNISolone [Medrol Dose Pack] See Taper PO DIRECTED 10/19/24 [History] Aspirin 81 mg PO DAILY 30 Days #30 tab 10/21/24 [Rx] Follow up Appointment(s)/Referral(s): Roxanna Patel MD [Primary Care Provider] - 1-2 days
== END 2024-10-21 13:59 ==
LOC: EC 09:50 → 1SOBS 13:05
PROVIDERS: ADMIT Internal Medicine; ATTEND Internal Medicine
DX: R07.89 Other chest pain (principal); R06.02 Shortness of breath; R05.9 Cough, unspecified; R42 Dizziness and giddiness; J01.90 Acute sinusitis, unspecified; I48.0 Paroxysmal atrial fibrillation; I25.10 Atherosclerotic heart disease of native coronary artery without angina pectoris; I11.0 Hypertensive heart disease with heart failure; I50.9 Heart failure, unspecified; K21.9 Gastro-esophageal reflux disease without esophagitis; E78.5 Hyperlipidemia, unspecified; G47.33 Obstructive sleep apnea (adult) (pediatric); F41.8 Other specified anxiety disorders; D50.9 Iron deficiency anemia, unspecified; J44.89 Other specified chronic obstructive pulmonary disease; M10.9 Gout, unspecified; N40.0 Benign prostatic hyperplasia without lower urinary tract symptoms; I25.5 Ischemic cardiomyopathy; S89.91XA Unspecified injury of right lower leg, initial encounter; W19.XXXA Unspecified fall, initial encounter; F17.290 Nicotine dependence, other tobacco product, uncomplicated; Z86.73 Personal history of transient ischemic attack (TIA), and cerebral infarction without residual deficits; Z95.810 Presence of automatic (implantable) cardiac defibrillator; Z95.5 Presence of coronary angioplasty implant and graft; Z79.899 Other long term (current) drug therapy; Z79.01 Long term (current) use of anticoagulants; Z79.51 Long term (current) use of inhaled steroids; Z79.84 Long term (current) use of oral hypoglycemic drugs; Z91.040 Latex allergy status; Z88.1 Allergy status to other antibiotic agents; Z82.49 Family history of ischemic heart disease and other diseases of the circulatory system
CPT/HCPCS: 99285; 36415; 94640 ×4; 93005; 83880; 80061; 80053 ×3; 83735; 84484; 85025 ×3; 85610; 85730; 84145; 87636; 73562; 71046; G0378 ×3; C8929; 93306